=== PATIENT | female | born 1955 | race Caucasian/White ===

== ENCOUNTER → 2019-05-23 13:44 | Outpatient (BNVA) | payer OTHER, MEDICAID, SELFPAY | PROVIDERS: PCP Emergency Medicine; Visit Provider Family Medicine | DX: I11.0 Hypertensive heart disease with heart failure (principal); I50.9 Heart failure, unspecified; R25.2 Cramp and spasm; B86 Scabies; R60.0 Localized edema | CPT/HCPCS: 80048; 83735 ==

== ENCOUNTER 2019-06-04 23:20 | Emergency (ER) | payer MEDICARE, MEDICAID, SELFPAY ==
[2019-06-04 23:22] VITALS: BP 132/67; PULSE 90; RESP 18; TEMP 37.1; O2SAT 95; BMI 42.5
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
--- NOTE | 2019-06-05 00:16 | XR_ITS ---
WS: [id number] TIBIA-FIBULA LEFT TECHNIQUE: 2 views of the left tibia-fibula CLINICAL INFORMATION: injury and pain to left lower leg COMPARISON: None. FINDINGS: Normal tibia and fibula. Normal medial and lateral malleolus. Normal talar dome. Mild soft tissue ericka ma left leg. No acute fractures. IMPRESSION: Normal tibia and fibula
[2019-06-05] MEDS: ibuprofen 600 mg Tablet PO (00:23)
[2019-06-05 01:32] VITALS: BP 149/96; PULSE 86; RESP 16; O2SAT 95
== END 2019-06-05 01:32 | disposition home or self-care (01) ==
PROVIDERS: Emergency Provider Physician Assistant; PCP Emergency Medicine
DX: S80.12XA Contusion of left lower leg, initial encounter (principal); I11.0 Hypertensive heart disease with heart failure; J44.9 Chronic obstructive pulmonary disease, unspecified; E11.9 Type 2 diabetes mellitus without complications; E66.9 Obesity, unspecified; E78.5 Hyperlipidemia, unspecified; Z87.891 Personal history of nicotine dependence; I25.10 Atherosclerotic heart disease of native coronary artery without angina pectoris; V00.838A Other accident with motorized mobility scooter, initial encounter
CPT/HCPCS: 73590; 99281; 99283

== ENCOUNTER 2019-09-06 13:11 | Outpatient (CLI) | payer MEDICARE, MEDICAID, SELFPAY | END 2019-09-06 13:12 | disposition home or self-care (01) | LOC: WOUND 13:12 | PROVIDERS: PCP Emergency Medicine; Visit Provider Nurse Practitioner Family | DX: E11.622 Type 2 diabetes mellitus with other skin ulcer (principal); L97.822 Non-pressure chronic ulcer of other part of left lower leg with fat layer exposed | CPT/HCPCS: 11042; 87070; 87077; 87176; 87186; 87205 ==

== ENCOUNTER 2019-09-13 13:03 | Outpatient (CLI) | payer MEDICARE, MEDICAID, SELFPAY | END 2019-09-13 13:04 | disposition home or self-care (01) | LOC: WOUND 13:09 | PROVIDERS: PCP Emergency Medicine; Visit Provider Nurse Practitioner Family | DX: E11.622 Type 2 diabetes mellitus with other skin ulcer (principal); L97.822 Non-pressure chronic ulcer of other part of left lower leg with fat layer exposed | CPT/HCPCS: 11042 ==

== ENCOUNTER 2019-09-17 10:17 | Outpatient (CLI) | payer MEDICARE, MEDICAID, SELFPAY ==
--- NOTE | 2019-09-17 10:33 | USCV_ITS ---
Lin Henao Age: 64 Gender: F : 1955 Exam Date: 09/17/2019 10:35 Ordering Phys: Nelida Resendez Technologist: James John Exam Location: [facility] – [place] Indication: HISTORY: NON HEALING ULCER PROCEDURES: Bilateral duplex Venous Insufficiency study of the Deep and Superficial systems was carried out according to normal protocol with the patient in supine positon for deep system and dependent position for the superficial system. FINDINGS: There is no evidence of bilateral deep vein thrombosis. No evidence of superficial thrombosis in the bilateral saphenous system. No evidence of reflux was noted in the bilateral deep venous system. No venous reflux noted in the bilateral greater saphenous vein. No venous reflux noted in the bilateral small saphenous vein. Echo lucent areas in the subcutaneous tissue on the right side CONCLUSIONS No evidence of DVT in the above-mentioned identifiable veins. No significant venous reflux in either in the deep or superficial veins bilaterally Features of fluid retention/edema in the right lower extremity Dr Herber Benoit MD [facility] (Electronically Signed) Final Date: 17 Sep 2019 19:41 S
== END 2019-09-17 10:18 | disposition home or self-care (01) ==
LOC: RAD 10:21
PROVIDERS: PCP Emergency Medicine; Visit Provider Nurse Practitioner Family
DX: L98.499 Non-pressure chronic ulcer of skin of other sites with unspecified severity (principal); M79.605 Pain in left leg; M79.604 Pain in right leg
CPT/HCPCS: 93970

== ENCOUNTER 2019-09-18 08:53 | Outpatient (CLI) | payer MEDICARE, MEDICAID, SELFPAY ==
--- NOTE | 2019-09-18 09:01 | USCV_ITS ---
Lin Henao Age: 64 Gender: F : 1955 Exam Date: 09/18/2019 09:15 Ordering Phys: Nelida Resendez Technologist: Michel Trevino Exam Location: [facility] [place] Indication: NON HEALING ULCER RIGHT LEFT Brachial 152.00 mmHg Brachial 122.00 mmHg Pressure (mmHg) Waveform Pressure (mmHg) Waveform 144.00 Above Knee 127.00 125.00 Below Knee 130.00 114.00 TELETYPIST 120.00 DPA 0.79 Ankle/Brachial Index 104.00 Pre-Exercise Toe Pressure 56.00 Pre-Exercise Toe/Brachial Index 0.37 0.68 FINDINGS Moderately diminished resting WHIT with a mildly diminished TBI on the right side Markedly diminished resting TBI on the left side PVR waveforms showing loss of dicrotic notch WHIT on the left side was not performed CONCLUSIONS Abnormal WHIT and TBI on the right side, suggestive of mild to moderate peripheral arterial disease Abnormal TBI on the left side, suggestive of moderate to severe peripheral arterial disease No similar previous studies are available for comparison Dr Herber Benoit MD [facility] (Electronically Signed) Final Date: 18 Sep 2019 19:41 S
== END 2019-09-18 08:54 | disposition home or self-care (01) ==
LOC: RAD 08:59
PROVIDERS: PCP Emergency Medicine; Visit Provider Nurse Practitioner Family
DX: L98.499 Non-pressure chronic ulcer of skin of other sites with unspecified severity (principal); M79.605 Pain in left leg; M79.604 Pain in right leg
CPT/HCPCS: 93923

== ENCOUNTER 2019-09-20 09:05 | Outpatient (CLI) | payer MEDICARE, MEDICAID, SELFPAY | END 2019-09-20 09:06 | disposition home or self-care (01) | LOC: WOUND 09:07 | PROVIDERS: PCP Emergency Medicine; Visit Provider Nurse Practitioner Family | DX: E11.622 Type 2 diabetes mellitus with other skin ulcer (principal); L97.822 Non-pressure chronic ulcer of other part of left lower leg with fat layer exposed | CPT/HCPCS: 11042 ==

== ENCOUNTER 2019-09-27 13:54 | Outpatient (CLI) | payer MEDICARE, MEDICAID, SELFPAY | END 2019-09-27 13:55 | disposition home or self-care (01) | LOC: WOUND 13:55 | PROVIDERS: PCP Emergency Medicine; Visit Provider Nurse Practitioner Family | DX: E11.622 Type 2 diabetes mellitus with other skin ulcer (principal); L97.822 Non-pressure chronic ulcer of other part of left lower leg with fat layer exposed | CPT/HCPCS: 11042 ==

== ENCOUNTER → 2019-10-03 08:45 | Outpatient (BNVA) | payer MEDICARE, MEDICAID, SELFPAY | PROVIDERS: PCP Family Medicine; Visit Provider Nurse Practitioner Family | DX: N32.81 Overactive bladder (principal); N39.46 Mixed incontinence; K59.09 Other constipation | CPT/HCPCS: 81001 ==

== ENCOUNTER 2019-10-08 13:48 | Outpatient (CLI) | payer MEDICARE, MEDICAID, SELFPAY | END 2019-10-08 13:49 | disposition home or self-care (01) | LOC: WOUND 13:49 | PROVIDERS: PCP Family Medicine; Visit Provider Nurse Practitioner Family | DX: E11.622 Type 2 diabetes mellitus with other skin ulcer (principal); L97.822 Non-pressure chronic ulcer of other part of left lower leg with fat layer exposed | CPT/HCPCS: 11042; 87070; 87077; 87176; 87186; 87205 ==

== ENCOUNTER 2019-10-18 10:13 | Outpatient (CLI) | payer MEDICARE, MEDICAID, SELFPAY | END 2019-10-18 10:14 | disposition home or self-care (01) | LOC: WOUND 10:16 | PROVIDERS: PCP Family Medicine; Visit Provider Nurse Practitioner Family | DX: E11.622 Type 2 diabetes mellitus with other skin ulcer (principal); L97.822 Non-pressure chronic ulcer of other part of left lower leg with fat layer exposed | CPT/HCPCS: 11042 ==

== ENCOUNTER 2019-10-25 13:07 | Outpatient (CLI) | payer MEDICARE, MEDICAID, SELFPAY | END 2019-10-25 13:08 | disposition home or self-care (01) | LOC: WOUND 13:09 | PROVIDERS: PCP Family Medicine; Visit Provider Nurse Practitioner Family | DX: E11.622 Type 2 diabetes mellitus with other skin ulcer (principal); L97.822 Non-pressure chronic ulcer of other part of left lower leg with fat layer exposed | CPT/HCPCS: 11042 ==

== ENCOUNTER 2019-10-26 09:44 | Outpatient (CLI) | payer MEDICARE, MEDICAID, SELFPAY ==
--- NOTE | 2019-10-26 10:30 | CT_ITS ---
WS: [id number] CTA ABDOMINAL AORTA WITH RUNOFF TECHNIQUE: Contrast enhanced CTA of the abdominal aorta with bilateral lower extremity runoff. Multip lanar reformatted images were obtained. MIP reformats were also reviewed. CLINICAL INFORMATION: Lifestyle limiting claudication COMPARISON: None. DLP: 1460.[address] scans at [facility] use at least one of these dose optimization techniques: automat ed exposure control; mA and/or kV adjustment per patient size (includes targeted exams where dose is matched to clinical indication); or iterative reconstruction. FINDINGS:Diffuse fatty infiltration of the liver. Hepatomegaly. Normal spleen. Normal GE junction. Sherice ng bases are well aerated. Mild fatty atrophy of the pancreas. Adrenal glands are normal. Normal candis l parenchymal enhancement. No hydronephrosis. Right lower pole renal cyst measuring 1.8 cm. Normal sigmoid colon. Tiny fat-containing umbilical hernia. No hernia bowel. Grade 1 anterolisthesis L5 on S1. Chronic spondylolysis. Hypertrophic changes lower thoracic spine. RIGHT: Right common iliac artery is patent. Right external and internal iliac arteries are patent. Ri ght common femoral artery is patent. Superficial femoral artery is patent. Right deep femoral artery is patent. Normal popliteal artery. Normal 3 vessel runoff to the ankle. LEFT: Left common iliac artery is patent. Left external and internal iliac arteries are patent. Left common femoral artery is patent. Normal superficial femoral artery and deep femoral arteries. Poplite al artery is patent. Normal 3 vessel runoff to the ankle. CT/CT angio abd aorta runof [id number] IMPRESSION: 1. Normal bilateral three-vessel runoff to both ankles. No flow-limiting lower extremity arterial stenosis. 2. Normal caliber abdominal aorta. Mild calcification at the bifurcation. No a neurysm. 3. Celiac and SMA are patent. Proximal renal arteries are patent. ALBIN is cristian hartley
[2019-10-26 10:46] LABS: Blood Urea Nitrogen 8 mg/dL (8-23)
[2019-10-26] MEDS: iohexol 350 mg/mL 100 mL Btl IV (11:16)
== END 2019-10-26 09:45 | disposition home or self-care (01) ==
LOC: RADWPI 09:52
PROVIDERS: PCP Family Medicine; Visit Provider Internal Medicine Cardiovascular Disease
DX: I73.9 Peripheral vascular disease, unspecified (principal); L97.921 Non-pressure chronic ulcer of unspecified part of left lower leg limited to breakdown of skin
CPT/HCPCS: 75635; 82565; 84520; Q9967

== ENCOUNTER 2019-11-01 13:07 | Outpatient (CLI) | payer MEDICARE, MEDICAID, SELFPAY | END 2019-11-01 13:08 | disposition home or self-care (01) | LOC: WOUND 13:08 | PROVIDERS: Family Provider Family Medicine; PCP Family Medicine; Visit Provider Nurse Practitioner Family | DX: E11.622 Type 2 diabetes mellitus with other skin ulcer (principal); L97.822 Non-pressure chronic ulcer of other part of left lower leg with fat layer exposed | CPT/HCPCS: 11042; G0463 ==

== ENCOUNTER 2019-11-08 08:41 | Outpatient (CLI) | payer MEDICARE, MEDICAID, SELFPAY | END 2019-11-08 08:42 | disposition home or self-care (01) | LOC: WOUND 08:45 | PROVIDERS: PCP Family Medicine; Visit Provider Surgery | DX: Z51.89 Encounter for other specified aftercare (principal) | CPT/HCPCS: G0463 ==

== ENCOUNTER → 2019-11-14 14:30 | Outpatient (BNVA) | payer MEDICARE, MEDICAID, SELFPAY | PROVIDERS: PCP Family Medicine; Visit Provider Family Medicine | DX: I10 Essential (primary) hypertension (principal); E11.69 Type 2 diabetes mellitus with other specified complication; E66.9 Obesity, unspecified; L97.921 Non-pressure chronic ulcer of unspecified part of left lower leg limited to breakdown of skin; F33.1 Major depressive disorder, recurrent, moderate; Z74.09 Other reduced mobility; Z99.3 Dependence on wheelchair | CPT/HCPCS: 80053; 80061; 83036 ==

== ENCOUNTER 2019-11-19 13:02 | Outpatient (CLI) | payer MEDICARE, MEDICAID, SELFPAY | END 2019-11-19 13:03 | disposition home or self-care (01) | LOC: WOUND 13:04 | PROVIDERS: PCP Family Medicine; Visit Provider Emergency Medicine | DX: E11.622 Type 2 diabetes mellitus with other skin ulcer (principal); L97.822 Non-pressure chronic ulcer of other part of left lower leg with fat layer exposed | CPT/HCPCS: 11042 ==

== ENCOUNTER 2019-11-22 09:29 | Outpatient (CLI) | payer MEDICARE, MEDICAID, SELFPAY | END 2019-11-22 09:30 | disposition home or self-care (01) | LOC: WOUND 09:32 | PROVIDERS: PCP Family Medicine; Visit Provider Nurse Practitioner Family | DX: E11.622 Type 2 diabetes mellitus with other skin ulcer (principal); L97.822 Non-pressure chronic ulcer of other part of left lower leg with fat layer exposed | CPT/HCPCS: 29581 ==

== ENCOUNTER 2019-11-29 08:42 | Outpatient (RCR) | payer MEDICARE, MEDICAID, SELFPAY ==
[2019-11-23 14:15] VITALS: BP 130/79; BMI 45.8
== END 2019-11-30 23:59 | disposition home or self-care (01) ==
LOC: WOUND 08:42
PROVIDERS: PCP Family Medicine; Visit Provider Emergency Medicine
DX: E11.622 Type 2 diabetes mellitus with other skin ulcer (principal); L97.822 Non-pressure chronic ulcer of other part of left lower leg with fat layer exposed
CPT/HCPCS: 11042

== ENCOUNTER 2019-12-06 08:41 | Outpatient (CLI) | payer MEDICARE, MEDICAID, SELFPAY ==
[2019-11-23 14:15] VITALS: BP 130/79; BMI 45.8
== END 2019-12-06 08:42 | disposition home or self-care (01) ==
LOC: HBO 08:43
PROVIDERS: PCP Family Medicine; Visit Provider Thoracic Surgery (Cardiothoracic Vascular Surgery)
DX: E11.622 Type 2 diabetes mellitus with other skin ulcer (principal); L97.822 Non-pressure chronic ulcer of other part of left lower leg with fat layer exposed
CPT/HCPCS: 29581; 99212

== ENCOUNTER 2019-12-07 09:24 | Outpatient (RCR) | payer MEDICARE, MEDICAID, SELFPAY ==
[2019-11-23 14:15] VITALS: BP 130/79; BMI 45.8
== END 2019-12-31 23:59 | disposition home or self-care (01) ==
LOC: WOUND 09:24
PROVIDERS: PCP Family Medicine; Visit Provider Emergency Medicine
DX: L97.921 Non-pressure chronic ulcer of unspecified part of left lower leg limited to breakdown of skin (principal); E11.622 Type 2 diabetes mellitus with other skin ulcer; L97.822 Non-pressure chronic ulcer of other part of left lower leg with fat layer exposed
CPT/HCPCS: 29581; 99212

== ENCOUNTER → 2019-12-11 12:50 | Outpatient (BNVA) | payer MEDICARE, MEDICAID, SELFPAY ==
[2019-11-23 14:15] VITALS: BP 130/79; BMI 45.8
== END ==
PROVIDERS: PCP Family Medicine; Visit Provider Nurse Practitioner Family
DX: N39.46 Mixed incontinence (principal)
CPT/HCPCS: 81001

== ENCOUNTER 2019-12-13 08:54 | Outpatient (CLI) | payer MEDICARE, MEDICAID, SELFPAY ==
[2019-11-23 14:15] VITALS: BP 130/79; BMI 45.8
== END 2019-12-13 08:55 | disposition home or self-care (01) ==
LOC: WOUND 08:55
PROVIDERS: PCP Family Medicine; Visit Provider Nurse Practitioner Family
DX: E11.622 Type 2 diabetes mellitus with other skin ulcer (principal); L97.822 Non-pressure chronic ulcer of other part of left lower leg with fat layer exposed
CPT/HCPCS: 11042; 97597

== ENCOUNTER 2019-12-20 08:12 | Outpatient (RCR) | payer MEDICARE, MEDICAID, SELFPAY ==
[2019-11-23 14:15] VITALS: BP 130/79; BMI 45.8
== END 2019-12-31 23:59 | disposition home or self-care (01) ==
LOC: WOUND 08:12
PROVIDERS: PCP Family Medicine; Visit Provider Emergency Medicine
DX: E11.622 Type 2 diabetes mellitus with other skin ulcer (principal); L97.822 Non-pressure chronic ulcer of other part of left lower leg with fat layer exposed
CPT/HCPCS: 15271; Q4196

== ENCOUNTER 2019-12-27 08:48 | Outpatient (CLI) | payer MEDICARE, MEDICAID, SELFPAY ==
[2019-11-23 14:15] VITALS: BP 130/79; BMI 45.8
== END 2019-12-27 08:49 | disposition home or self-care (01) ==
LOC: WOUND 08:49
PROVIDERS: PCP Family Medicine; Visit Provider Emergency Medicine
DX: E11.622 Type 2 diabetes mellitus with other skin ulcer (principal); L97.822 Non-pressure chronic ulcer of other part of left lower leg with fat layer exposed
CPT/HCPCS: 11042

== ENCOUNTER 2020-01-03 08:57 | Outpatient (CLI) | payer MEDICARE, MEDICAID, SELFPAY ==
[2019-11-23 14:15] VITALS: BP 130/79; BMI 45.8
== END 2020-01-03 08:58 | disposition home or self-care (01) ==
LOC: WOUND 08:58
PROVIDERS: PCP Family Medicine; Visit Provider Emergency Medicine
DX: E11.622 Type 2 diabetes mellitus with other skin ulcer (principal); L97.822 Non-pressure chronic ulcer of other part of left lower leg with fat layer exposed
CPT/HCPCS: 15271; Q4196

== ENCOUNTER 2020-01-10 09:54 | Outpatient (CLI) | payer MEDICARE, MEDICAID, SELFPAY ==
[2019-11-23 14:15] VITALS: BP 130/79; BMI 45.8
== END 2020-01-10 09:55 | disposition home or self-care (01) ==
LOC: WOUND 09:55
PROVIDERS: PCP Family Medicine; Visit Provider Emergency Medicine
DX: E11.622 Type 2 diabetes mellitus with other skin ulcer (principal); L97.822 Non-pressure chronic ulcer of other part of left lower leg with fat layer exposed
CPT/HCPCS: 11042

== ENCOUNTER 2020-01-17 08:55 | Outpatient (CLI) | payer MEDICARE, MEDICAID, SELFPAY ==
[2019-11-23 14:15] VITALS: BP 130/79; BMI 45.8
== END 2020-01-17 08:56 | disposition home or self-care (01) ==
LOC: WOUND 08:56
PROVIDERS: PCP Family Medicine; Visit Provider Emergency Medicine
DX: E11.622 Type 2 diabetes mellitus with other skin ulcer (principal); L97.822 Non-pressure chronic ulcer of other part of left lower leg with fat layer exposed
CPT/HCPCS: 11042; 87070; 87077; 87176; 87186; 87205

== ENCOUNTER 2020-01-24 10:49 | Outpatient (CLI) | payer MEDICARE, MEDICAID, SELFPAY ==
[2019-11-23 14:15] VITALS: BP 130/79; BMI 45.8
== END 2020-01-24 10:50 | disposition home or self-care (01) ==
LOC: WOUND 10:52
PROVIDERS: PCP Family Medicine; Visit Provider Nurse Practitioner Family
DX: E11.622 Type 2 diabetes mellitus with other skin ulcer (principal); L97.822 Non-pressure chronic ulcer of other part of left lower leg with fat layer exposed
CPT/HCPCS: 11042

== ENCOUNTER 2020-01-31 09:47 | Outpatient (CLI) | payer MEDICARE, MEDICAID, SELFPAY ==
[2019-11-23 14:15] VITALS: BP 130/79; BMI 45.8
== END 2020-01-31 09:48 | disposition home or self-care (01) ==
LOC: WOUND 09:48
PROVIDERS: PCP Family Medicine; Visit Provider Nurse Practitioner Family
DX: E11.621 Type 2 diabetes mellitus with foot ulcer (principal); L97.822 Non-pressure chronic ulcer of other part of left lower leg with fat layer exposed
CPT/HCPCS: 11042

== ENCOUNTER 2020-02-07 10:05 | Outpatient (CLI) | payer MEDICARE, MEDICAID, SELFPAY ==
[2019-11-23 14:15] VITALS: BP 130/79; BMI 45.8
== END 2020-02-07 10:06 | disposition home or self-care (01) ==
LOC: WOUND 10:07
PROVIDERS: PCP Family Medicine; Visit Provider Surgery
DX: E11.622 Type 2 diabetes mellitus with other skin ulcer (principal); L97.822 Non-pressure chronic ulcer of other part of left lower leg with fat layer exposed
CPT/HCPCS: 29581

== ENCOUNTER 2020-02-10 14:33 | Emergency (ER) | payer MEDICARE, MEDICAID, SELFPAY ==
[2019-11-23 14:15] VITALS: BP 130/79; BMI 45.8
[2020-02-10 14:51] VITALS: BP 138/91; PULSE 94; RESP 18; TEMP 37.1; O2SAT 95; BMI 44.6
--- NOTE | 2020-02-10 15:04 | XRR_ITS ---
PROCEDURE INFORMATION: Exam: XR Left Wrist Exam date and time: 02/10/2020 4:03 PM Age: 64 years old Clinical indication: Injury or trauma; Other: Dog leash pulled on wrist; Swelling (edema); Left; Additional info: Trauma, dog leash pulled on wrist TECHNIQUE: Imaging protocol: XR Left wrist. Views: 3 or more views. COMPARISON: No relevant prior studies available. FINDINGS: Bones/joints: Negative for acute bony abnormality Soft tissues: Normal. XR/XR wrist LT min 3V* [id number] IMPRESSION: No acute findings.
--- NOTE | 2020-02-10 16:13 | W.ED.EXTPRO ---
HPI - Extremity Problem General: Chief complaint: Extremity Injury, Upper Stated complaint: wrist pain Time Seen by Provider: 02/10/20 15:39 History of Present Illness: HPI Narrative: Left hand with bruising from getting pulled by dog leash. Complaint: extremity pain Onset (ago): day(s) Pain Consistency: intermittent Location: left Severity scale (1-10): 2 Quality: aching Radiation: none Associated symptoms: Reports no associated symptoms; Deny chest pain, fever(s) or rash Review of Systems Const: Denies: fever(s), chills or body aches Eyes: Denies: change in vision or blurry vision ENMT: Denies: throat pain or nasal congestion Card: Denies: chest pain or dyspnea on exertion Resp: Denies: dyspnea, productive cough or non-productive cough GI: Denies: abdominal pain, nausea or vomiting Musc: Reports: extremity pain (Has bruising swelling to top of the left hand patient is on blood thinners. Dog leash pulled on her wrist she does have good range of motion) Skin/Breast: Denies: rash Neuro: Denies: headache(s) Psych: Denies: anxiety or depression Jagjit/Lymph: Denies: easy bruising PFSH ED PFSH: Medical History (Updated 02/10/20 @ 16:12 by JEROME Joshi) Bipolar depression CAD (coronary artery disease) Chronic headache Chronic pain syndrome Constipation, chronic COPD (chronic obstructive pulmonary disease) Diabetes mellitus type 2 in obese GERD (gastroesophageal reflux disease) Hyperlipemia Hypertension, benign Insomnia Mixed stress and urge urinary incontinence Overactive bladder RLS (restless legs syndrome) Surgical History (Updated 02/05/20 @ 12:28 by Kristine Rodriguez MD) H/O thyroidectomy H/O: hysterectomy Hx of cholecystectomy S/P appendectomy Family History Mother , at age 75 Hypertension Father , at age 87 Hypertension Denies family history of Lung disease Stroke Social History Smoking and tobacco status: former smoker Quit status (tobacco): has quit using tobacco Alcohol intake: never Adopted: No Caregiver/support person: No Lives independently: Yes Marital status: / Current occupational status: disabled History of recent travel: No Current gender identity: Female Female Reproductive History: Spontaneous abortions: No Physical Exam Const: COMMON NORMALS: no acute distress, average body habitus and patient oriented x3 HENMT: COMMON NORMALS: normocephalic HEAD & SCALP: normal to inspection and normocephalic FACE & SINUS: normal facial exam Eye: COMMON NORMALS: conjunctivae normal GENERAL EYE: appearance normal, both eyes and all related structures CONJUNCTIVA: Yes conjunctivae normal Neck/C-Spine: COMMON NORMALS: no JVD Chest: COMMONS NORMALS: normal inspection of the chest Resp: COMMON NORMALS: normal respiratory effort Cardio: COMMON NORMALS: no JVD GI: COMMON NORMALS: Normal to inspection, nondistended, normoactive bowel sounds present Extremity: COMMON NORMALS: normal to inspection and full ROM Neuro: COMMON NORMALS: patient oriented x3 Skin: OTHER: Bruising to dorsal surface of left hand from knuckles down to right below the wrist area. She has good range of motion good distal neurovascular status skin is what hurts when touched. Course Vital Signs: Vital signs: Vital Signs Temperature 98.8 F 02/10/20 14:51 Pulse Rate 94 02/10/20 14:51 Respiratory Rate 18 02/10/20 14:51 Blood Pressure 138/91 02/10/20 14:51 Pulse Oximetry 95 02/10/20 14:51 Discharge Plan Discharge Patient Disposition: Home Clinical Impression: Left wrist sprain Qualifiers: Encounter type: initial encounter Qualified Code(s): S63.502A - Unspecified sprain of left wrist, initial encounter Condition: Stable Prescriptions: No Action oxybutynin chloride 15 mg tablet extended release 24hr 15 mg PO DAILY RF: 0 topiramate [Topamax] 100 mg tablet 100 mg PO TID RF: 0 potassium chloride 20 mEq tablet extended release 20 meq PO BID RF: 0 clopidogrel [Plavix] 75 mg tablet 75 mg PO ONCE RF: 0 celecoxib 200 mg capsule 200 mg PO DAILY RF: 0 gemfibrozil 600 mg tablet 600 mg PO DAILY RF: 0 furosemide [Lasix] 40 mg tablet 40 mg PO BID RF: 0 docusate sodium [Colace] 100 mg capsule 100 mg PO BID RF: 0 losartan 100 mg tablet 100 mg PO ONCE RF: 0 ibuprofen 800 mg tablet 800 mg PO Q6H PRNRF: 0 albuterol sulfate [Ventolin HFA] 90 mcg/actuation HFA aerosol inhaler 2 puff INHALATION Q6H PRNRF: 0 nitroglycerin 0.4 mg tablet, sublingual 0.4 mg SUBLINGUAL Q5M PRNRF: 0 amitriptyline 100 mg tablet 100 mg PO DAILY Qty: 30 RF: 3 bupropion HCl [Wellbutrin XL] 300 mg tablet extended release 24 hr 300 mg PO DAILY Qty: 30 RF: 3 buspirone 10 mg tablet 15 mg PO BID Qty: 90 RF: 3 duloxetine 60 mg capsule,delayed release(DR/EC) 60 mg PO DAILY Qty: 30 RF: 3 ropinirole 1 mg tablet 1.5 mg PO .bedtime Qty: 45 RF: 3 hydroxyzine pamoate 25 mg capsule 25 mg PO Q6H PRN (Reason: itching or pain) Qty: 120 RF: 3 ramelteon 8 mg tablet 8 mg PO .at bedtime Qty: 30 RF: 2 famotidine 20 mg tablet 20 mg PO BID RF: 0 guaifenesin 1,200 mg tablet extended release 12hr 1,200 mg PO Q12H 14 Days Qty: 28 RF: 0 loratadine 10 mg tablet 10 mg PO .at bedtime PRN (Reason: allergy symptoms) 14 Days Qty: 14 RF: 0 metformin 500 mg tablet 500 mg PO BID 30 Days Qty: 60 RF: 2 miscellaneous medical supply Misc See Rx Instructions miscellaneous .COMPLEX Qty: 1 RF: 0 cyclobenzaprine 5 mg tablet See Rx Instructions PO TID 30 Days Qty: 120 RF: 2 spironolactone 25 mg tablet 25 mg PO DAILY Qty: 30 RF: 2 aspirin [Adult Aspirin Regimen] 81 mg tablet,delayed release (DR/EC) 81 mg PO DAILY 90 Days Qty: 90 RF: 3 Discharge Orders: Discharge Order (Routine); Ordered 02/10/20 Ordered By: Paulie Carlisle Referrals: Kristine Rodriguez MD [Primary Care Provider] - Discharge Diet: Usual diet Discharge Activity: Increase activity as tolerated Patient Instructions: Contusion in Adults (ED), Wrist Sprain (ED) Activity Restrictions/Additional Instructions: Wear Yasir wrap take Tylenol for discomfort use moist heat for 20 minutes every couple hours to help absorb blood. 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
== END 2020-02-10 16:34 | disposition home or self-care (01) ==
PROVIDERS: Emergency Provider Nurse Practitioner Family; PCP Family Medicine
DX: S63.502A Unspecified sprain of left wrist, initial encounter (principal); Z79.02 Long term (current) use of antithrombotics/antiplatelets; Z79.82 Long term (current) use of aspirin; I25.10 Atherosclerotic heart disease of native coronary artery without angina pectoris; J44.9 Chronic obstructive pulmonary disease, unspecified; E11.9 Type 2 diabetes mellitus without complications; E78.5 Hyperlipidemia, unspecified; I10 Essential (primary) hypertension; Z87.891 Personal history of nicotine dependence; X50.9XXA Other and unspecified overexertion or strenuous movements or postures, initial encounter
CPT/HCPCS: 12345; 73110; 99281; 99283

== ENCOUNTER 2020-02-14 09:37 | Outpatient (CLI) | payer MEDICARE, MEDICAID, SELFPAY ==
[2019-11-23 14:15] VITALS: BP 130/79; BMI 45.8
== END 2020-02-14 09:38 | disposition home or self-care (01) ==
LOC: WOUND 09:39
PROVIDERS: PCP Family Medicine; Visit Provider Nurse Practitioner Family
DX: E11.622 Type 2 diabetes mellitus with other skin ulcer (principal); L97.822 Non-pressure chronic ulcer of other part of left lower leg with fat layer exposed
CPT/HCPCS: 97597

== ENCOUNTER 2020-02-18 13:37 | Outpatient (CLI) | payer MEDICARE, MEDICAID, SELFPAY ==
[2019-11-23 14:15] VITALS: BP 130/79; BMI 45.8
== END 2020-02-18 13:38 | disposition home or self-care (01) ==
LOC: WOUND 13:39
PROVIDERS: PCP Family Medicine; Visit Provider Thoracic Surgery (Cardiothoracic Vascular Surgery)
DX: E11.622 Type 2 diabetes mellitus with other skin ulcer (principal); L97.822 Non-pressure chronic ulcer of other part of left lower leg with fat layer exposed
CPT/HCPCS: 29581

== ENCOUNTER 2020-02-21 10:21 | Outpatient (CLI) | payer MEDICARE, MEDICAID, SELFPAY ==
[2019-11-23 14:15] VITALS: BP 130/79; BMI 45.8
== END 2020-02-21 10:22 | disposition home or self-care (01) ==
LOC: WOUND 10:22
PROVIDERS: PCP Family Medicine; Visit Provider Nurse Practitioner Family
DX: E11.622 Type 2 diabetes mellitus with other skin ulcer (principal); L97.822 Non-pressure chronic ulcer of other part of left lower leg with fat layer exposed
CPT/HCPCS: 11042

== ENCOUNTER 2020-02-25 10:49 | Outpatient (CLI) | payer MEDICARE, MEDICAID, SELFPAY ==
[2019-11-23 14:15] VITALS: BP 130/79; BMI 45.8
== END 2020-02-25 10:50 | disposition home or self-care (01) ==
LOC: WOUND 10:50
PROVIDERS: PCP Family Medicine; Visit Provider Nurse Practitioner Family
DX: E11.622 Type 2 diabetes mellitus with other skin ulcer (principal); L97.822 Non-pressure chronic ulcer of other part of left lower leg with fat layer exposed
CPT/HCPCS: 29581

== ENCOUNTER 2020-02-28 13:10 | Outpatient (CLI) | payer MEDICARE, MEDICAID, SELFPAY ==
[2019-11-23 14:15] VITALS: BP 130/79; BMI 45.8
== END 2020-02-28 13:11 | disposition home or self-care (01) ==
PROVIDERS: PCP Family Medicine; Visit Provider Nurse Practitioner Family
DX: E11.622 Type 2 diabetes mellitus with other skin ulcer (principal); L97.822 Non-pressure chronic ulcer of other part of left lower leg with fat layer exposed
CPT/HCPCS: 11042

== ENCOUNTER 2020-03-03 08:10 | Outpatient (CLI) | payer MEDICARE, MEDICAID, SELFPAY ==
[2019-11-23 14:15] VITALS: BP 130/79; BMI 45.8
== END 2020-03-03 08:11 | disposition home or self-care (01) ==
LOC: WOUND 08:12
PROVIDERS: PCP Family Medicine; Visit Provider Nurse Practitioner Family
DX: E11.622 Type 2 diabetes mellitus with other skin ulcer (principal); L97.822 Non-pressure chronic ulcer of other part of left lower leg with fat layer exposed
CPT/HCPCS: 29581

== ENCOUNTER 2020-03-06 10:00 | Outpatient (CLI) | payer MEDICARE, MEDICAID, SELFPAY ==
[2019-11-23 14:15] VITALS: BP 130/79; BMI 45.8
== END 2020-03-06 10:01 | disposition home or self-care (01) ==
LOC: WOUND 10:01
PROVIDERS: PCP Family Medicine; Visit Provider Nurse Practitioner Family
DX: E11.622 Type 2 diabetes mellitus with other skin ulcer (principal); L97.822 Non-pressure chronic ulcer of other part of left lower leg with fat layer exposed
CPT/HCPCS: 29581

== ENCOUNTER 2020-03-10 09:57 | Outpatient (RCR) | payer MEDICARE, MEDICAID, SELFPAY ==
[2019-11-23 14:15] VITALS: BP 130/79; BMI 45.8
== END 2020-03-31 23:59 | disposition home or self-care (01) ==
LOC: WOUND 09:57
PROVIDERS: PCP Family Medicine; Visit Provider Nurse Practitioner Family
DX: E11.622 Type 2 diabetes mellitus with other skin ulcer (principal); L97.822 Non-pressure chronic ulcer of other part of left lower leg with fat layer exposed
CPT/HCPCS: 29581

== ENCOUNTER 2020-03-13 10:51 | Outpatient (CLI) | payer MEDICARE, MEDICAID, SELFPAY ==
[2020-03-12 07:45] VITALS: BP 130/79; BMI 45.8
== END 2020-03-13 10:52 | disposition home or self-care (01) ==
LOC: WOUND 10:51
PROVIDERS: PCP Family Medicine; Visit Provider Nurse Practitioner Family
DX: E11.622 Type 2 diabetes mellitus with other skin ulcer (principal); L97.822 Non-pressure chronic ulcer of other part of left lower leg with fat layer exposed
CPT/HCPCS: G0463

== ENCOUNTER 2020-03-17 13:07 | Outpatient (RCR) | payer MEDICARE, MEDICAID, SELFPAY ==
[2020-03-12 07:45] VITALS: BP 130/79; BMI 45.8
== END 2020-03-31 23:59 | disposition home or self-care (01) ==
LOC: WOUND 13:07
PROVIDERS: PCP Family Medicine; Visit Provider Nurse Practitioner Family
DX: E11.622 Type 2 diabetes mellitus with other skin ulcer (principal); L97.522 Non-pressure chronic ulcer of other part of left foot with fat layer exposed
CPT/HCPCS: 11042

== ENCOUNTER 2020-03-20 09:26 | Outpatient (CLI) | payer MEDICARE, MEDICAID, SELFPAY ==
[2020-03-12 07:45] VITALS: BP 130/79; BMI 45.8
== END 2020-03-20 09:27 | disposition home or self-care (01) ==
LOC: WOUND 09:33
PROVIDERS: PCP Family Medicine; Visit Provider Nurse Practitioner Family
DX: E11.622 Type 2 diabetes mellitus with other skin ulcer (principal); L97.822 Non-pressure chronic ulcer of other part of left lower leg with fat layer exposed
CPT/HCPCS: 29581

== ENCOUNTER 2020-03-24 11:16 | Outpatient (CLI) | payer MEDICARE, MEDICAID, SELFPAY ==
[2020-03-12 07:45] VITALS: BP 130/79; BMI 45.8
== END 2020-03-24 11:17 | disposition home or self-care (01) ==
LOC: WOUND 11:20
PROVIDERS: PCP Family Medicine; Visit Provider Nurse Practitioner Family
DX: E11.622 Type 2 diabetes mellitus with other skin ulcer (principal); L97.822 Non-pressure chronic ulcer of other part of left lower leg with fat layer exposed; E11.65 Type 2 diabetes mellitus with hyperglycemia
CPT/HCPCS: 11042; 83036

== ENCOUNTER 2020-03-31 10:25 | Outpatient (CLI) | payer MEDICARE, MEDICAID, SELFPAY ==
[2020-03-12 07:45] VITALS: BP 130/79; BMI 45.8
== END 2020-03-31 10:26 | disposition home or self-care (01) ==
LOC: WOUND 10:29
PROVIDERS: PCP Family Medicine; Visit Provider Nurse Practitioner Family
DX: E11.622 Type 2 diabetes mellitus with other skin ulcer (principal); L97.822 Non-pressure chronic ulcer of other part of left lower leg with fat layer exposed
CPT/HCPCS: 11042

== ENCOUNTER 2020-04-03 10:33 | Outpatient (CLI) | payer MEDICARE, MEDICAID, SELFPAY ==
[2020-03-12 07:45] VITALS: BP 130/79; BMI 45.8
== END 2020-04-03 10:34 | disposition home or self-care (01) ==
LOC: WOUND 10:35
PROVIDERS: PCP Family Medicine; Visit Provider Nurse Practitioner Family
DX: E11.622 Type 2 diabetes mellitus with other skin ulcer (principal); L97.822 Non-pressure chronic ulcer of other part of left lower leg with fat layer exposed
CPT/HCPCS: 29581

== ENCOUNTER 2020-04-07 10:42 | Outpatient (CLI) | payer MEDICARE, MEDICAID, SELFPAY ==
[2020-03-12 07:45] VITALS: BP 130/79; BMI 45.8
== END 2020-04-07 10:43 | disposition home or self-care (01) ==
LOC: WOUND 10:43
PROVIDERS: PCP Family Medicine; Visit Provider Nurse Practitioner Family
DX: E11.622 Type 2 diabetes mellitus with other skin ulcer (principal); L97.822 Non-pressure chronic ulcer of other part of left lower leg with fat layer exposed; E11.69 Type 2 diabetes mellitus with other specified complication; E66.9 Obesity, unspecified; I10 Essential (primary) hypertension
CPT/HCPCS: 11042; 80053; 83735

== ENCOUNTER 2020-04-10 09:16 | Outpatient (RCR) | payer MEDICARE, MEDICAID, SELFPAY ==
[2020-03-12 07:45] VITALS: BP 130/79; BMI 45.8
== END 2020-05-01 23:59 | disposition home or self-care (01) ==
LOC: WOUND 09:16
PROVIDERS: PCP Family Medicine; Visit Provider Nurse Practitioner Family
DX: E11.622 Type 2 diabetes mellitus with other skin ulcer (principal); L97.822 Non-pressure chronic ulcer of other part of left lower leg with fat layer exposed
CPT/HCPCS: 29581

== ENCOUNTER 2020-04-14 08:22 | Outpatient (CLI) | payer MEDICARE, MEDICAID, SELFPAY ==
[2020-03-12 07:45] VITALS: BP 130/79; BMI 45.8
== END 2020-04-14 08:23 | disposition home or self-care (01) ==
LOC: WOUND 08:23
PROVIDERS: PCP Family Medicine; Visit Provider Nurse Practitioner Family
DX: Z09 Encounter for follow-up examination after completed treatment for conditions other than malignant neoplasm (principal)
CPT/HCPCS: 99212; A6545

== ENCOUNTER → 2020-06-25 17:03 | Outpatient (BNVA) | payer MEDICARE, MEDICAID, SELFPAY ==
[2020-03-12 07:45] VITALS: BP 130/79; BMI 45.8
== END ==
PROVIDERS: PCP Family Medicine; Visit Provider Family Medicine
DX: I10 Essential (primary) hypertension (principal); G89.4 Chronic pain syndrome; E11.69 Type 2 diabetes mellitus with other specified complication; E66.9 Obesity, unspecified; M19.90 Unspecified osteoarthritis, unspecified site
CPT/HCPCS: 80053; 80061; 83036

== ENCOUNTER → 2020-08-25 15:49 | Outpatient (BNVA) | payer MEDICARE, MEDICAID, SELFPAY ==
[2020-03-12 07:45] VITALS: BP 130/79; BMI 45.8
== END ==
PROVIDERS: PCP Family Medicine; Visit Provider Family Medicine
DX: E11.69 Type 2 diabetes mellitus with other specified complication (principal); E66.9 Obesity, unspecified; M19.90 Unspecified osteoarthritis, unspecified site; I10 Essential (primary) hypertension; E78.5 Hyperlipidemia, unspecified; J44.9 Chronic obstructive pulmonary disease, unspecified; G89.4 Chronic pain syndrome; I73.9 Peripheral vascular disease, unspecified; I25.10 Atherosclerotic heart disease of native coronary artery without angina pectoris; M79.7 Fibromyalgia; K59.09 Other constipation; K21.9 Gastro-esophageal reflux disease without esophagitis; T78.40XA Allergy, unspecified, initial encounter; N39.46 Mixed incontinence; J41.0 Simple chronic bronchitis; E78.2 Mixed hyperlipidemia; F33.1 Major depressive disorder, recurrent, moderate; Z90.710 Acquired absence of both cervix and uterus
CPT/HCPCS: 80053; 80061; 83036; 83735

== ENCOUNTER 2020-09-08 09:58 | Observation (INO) | payer MEDICARE, MEDICAID, SELFPAY ==
[2020-09-02 16:11] VITALS: BP 134/75; BMI 41.9
[2020-09-08] VITALS (13 sets, daily range): BP systolic 80–146; BP diastolic 53–96; PULSE 71–110; RESP 14–22; TEMP 36.6–37.1; O2SAT 96–98; BMI 42.0
--- NOTE | 2020-09-08 10:06 | XRR_ITS ---
PROCEDURE INFORMATION: Exam: XR Chest Exam date and time: 09/08/2020 10:21 AM Age: 65 years old Clinical indication: Chest pain; Type not specified; Additional info: Chest pain, palpitations TECHNIQUE: Imaging protocol: XR of the chest. Views: 1 view. COMPARISON: No relevant prior studies available. FINDINGS: Lungs: Unremarkable. No consolidation. Pleural spaces: Unremarkable. No pleural effusion. No pneumothorax. Heart/Mediastinum: Unremarkable. No cardiomegaly. Bones/joints: Moderate thoracic spondylosis. XR/XR chest 1V portable [id number] IMPRESSION: No acute findings.
--- NOTE | 2020-09-08 10:06 | ECG_ITS ---
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 Measurements Intervals [place] Rate: 108 P: 253 GA: 146 QRS: -31 QRSD: 94 T: 28 QT: 337 QTc: 452 Interpretive Statements ATRIAL FLUTTER WITH VARIABLE BLOCK LEFT AXIS DEVIATION [QRS AXIS < -30] MODERATE ST DEPRESSION [0.05+ mV ST DEPRESSION] No previous ECG available for comparison Electronically Signed On 09-09-2020 9:28:20 CDT by Shahana Hernandez M.D. [id number]
[2020-09-08 10:32] LABS: Basophils % 0.6 %; Eosinophils # 0.1 10^3/uL (0.0-0.8); Eosinophils % 1.9 %; Hematocrit 45.7 % (37.0-47.0); Hemoglobin 14.9 g/dL (11.5-15.3); Lymphocytes % 28.4 %; Mean Corpuscular HGB Conc 32.6 g/dL (30.0-36.0); Mean Corpuscular Hemoglobin 30.4 pg (28.0-34.0); Mean Corpuscular Volume 93.3 fL (81-99); Mean Platelet Volume 12.4 fL (7.4-10.4); Monocytes # 0.4 10^3/uL (0.2-0.9); Neutrophils # 4.39 10^3/uL (1.8-7.7); Neutrophils % 62.8 %; Nucleated Red Blood Cells % 0 %; Platelet Count 227 10^3/cmm (130-400); Red Cell Distribution Width 13.2 % (12.1-15.1)
--- NOTE | 2020-09-08 10:46 | ED_ITS ---
HPI - Chest Pain General: Chief Complaint: Chest Pain Stated Complaint: heart palpatations Time Seen by Provider: 09/08/20 10:06 History of Present Illness: HPI narrative: 65-year-old female presents emergency room complaining of chest discomfort that began this morning while she was active lasted about an hour and resolved spontaneously. Began around 8 AM this morning. She was a little short of breath with it had some chest tightness and discomfort. She tells me she has had multiple heart attacks in the past but never had bypass or angiogram or stenting. In discussing with her it sounds like she had rule outs for chest pain and she interpreted as actually having heart attacks. MD complaint: chest pain Onset (ago): hour(s) Timing of current episode: episodic Prior episodes: Yes Onset: during rest Pain location: substernal and left chest Pain radiation: none Severity: mild Quality: tightness and heaviness Relieving factors: nothing Exacerbating factors: nothing Associated symptoms: Deny abdominal pain, diaphoresis, dyspnea, fever(s), leg edema, nausea, palpitations, sense of impending doom, syncope or vomiting Treatment prior to arrival: none Review of Systems Const: Denies: fever(s) or diaphoresis ENMT: Denies: throat pain, ear or mastoid pain, nasal discharge or nasal congestion Card: Denies: palpitations or syncope Resp: Denies: dyspnea GI: Denies: abdominal pain, nausea or vomiting : Denies: flank pain, difficulty voiding, dysuria, urinary frequency or urinary urgency Skin/Breast: Denies: rash or pruritus PFSH ED PFSH: Medical History Bipolar depression CAD (coronary artery disease) Chronic headache Chronic pain syndrome Due to her weight and other comorbidities I do not think that there is much that pain management would be able to do. They can do localized injections or treatments on specific joints but she would never be a surgical candidate. Constipation, chronic COPD (chronic obstructive pulmonary disease) Diabetes mellitus type 2 in obese Fibromyalgia Generalized anxiety disorder GERD (gastroesophageal reflux disease) Hyperlipemia Hypertension, benign Insomnia Major depressive disorder, recurrent, moderate Mixed stress and urge urinary incontinence NONA (obstructive sleep apnea) Uses CPAP Overactive bladder Panic disorder [episodic paroxysmal anxiety] Paroxysmal atrial fibrillation (~08/2020) Peripheral Vascular Disease RLS (restless legs syndrome) Surgical History H/O thyroidectomy H/O: hysterectomy Hx of cholecystectomy S/P appendectomy Family History Mother , at age 75 Hypertension Father , at age 87 Hypertension Denies family history of Lung disease Stroke Social History Smoking and tobacco status: current every day smoker cigarettes Packs smoked per day: 1 Second hand smoke exposure: No Alcohol intake: never Adopted: No Caregiver/support person: No Lives independently: Yes Housing: Apartment Marital status: / Number of children: 8 Number of grandchildren: 14 Highest education level completed: Some College, No Degree service: No Current occupational status: disabled Pets and animals: Yes Pets & animals: dog(s) History of recent travel: No Leisure activites: art, music, reading and other Sexually active: No Current gender identity: Female Lilliam/Restorationist: Yazdanism Special lilliam needs: No Agree to transfusion: Yes Financial difficulty paying for basics: Not Very Hard Female Reproductive History: Para: 8 Spontaneous abortions: No Physical Exam Const: COMMON NORMALS: no acute distress GENERAL APPEARANCE: cooperative and comfortable ORIENTATION/CONSCIOUSNESS: Yes awake, Yes oriented to person, Yes oriented to place and Yes oriented to time HENMT: COMMON NORMALS: normocephalic, atraumatic and hearing grossly normal bilaterally HEAD & SCALP: normocephalic and atraumatic Neck/C-Spine: COMMON NORMALS: no JVD Resp: COMMON NORMALS: normal respiratory effort, No retractions, No use of accessory muscles and clear to auscultation bilaterally AUSCULTATION: clear to auscultation bilaterally Cardio: COMMON NORMALS: no JVD, regular rate, regular rhythm and No murmurs present (Cardio) RATE: regular rate RHYTHM: regular rhythm GI: COMMON NORMALS: Soft to palpation and No hepatosplenomegaly present AUSCULTATION: Yes normoactive bowel sounds PALPATION: Yes Soft to palpation, No Tenderness to palpation present (GI), No Guarding due to palpation present (GI) and Yes No hepatosplenomegaly present Extremity: COMMON NORMALS: normal to inspection, capillary refill normal, no clubbing, cyanosis or edema, no calf tenderness and no pedal edema Neuro: SENSORIUM/ORIENTATION: Yes oriented to person, Yes oriented to place and Yes oriented to time Skin: COMMON NORMALS: no rashes or lesions noted GENERAL SKIN EXAM: no ra shes or lesions noted Course Vital Signs: Vital signs: Vital Signs Temperature 98.2 F 09/09/20 12:00 Pulse Rate 117 H 09/09/20 12:52 Respiratory Rate 20 H 09/09/20 12:52 Blood Pressure 110/84 09/09/20 15:23 Pulse Oximetry 96 09/09/20 12:52 MDM - Chest Pain MDM Narrative: Medical decision making narrative: EKG showed Mild sinus tachycardia. The computer read it as atrial flutter which I disagreed with. The patient then had a brief episode of A. fib with RVR and then also bumped her troponin her symptoms now are resolved, we have not had to put her on any drips she responded well to just single dose of medications discussed with Dr. Metz we will go ahead and the patient on's.. Lab Data: Labs: Lab Results 09/08/20 09/08/20 09/08/20 Range/Units 09:08 09:08 09:08 WBC 7.0 (4.0-10.0) 10^3/ uL RBC 4.90 (4.1-5.3) 10^6/u L Hgb 14.9 (11.5-15.3) g/dL Hct 45.7 (37.0-47.0) % MCV 93.3 (81-99) fL MCH 30.4 (28.0-34.0) pg MCHC 32.6 (30.0-36.0) g/dL RDW 13.2 (12.1-15.1) % Plt Count 227 (130-400) 10^3/c mm MPV 12.4 H (7.4-10.4) fL Neut % (Auto) 62.8 % Lymph % (Auto) 28.4 % [place]dwell % (Auto) 6.0 % Eos % (Auto) 1.9 % Baso % (Auto) 0.6 % Neut # (Auto) 4.39 (1.8-7.7) 10^3/u L Lymph # (Auto) 2.0 (0.8-4.8) 10^3/u L Caldwell # (Auto) 0.4 (0.2-0.9) 10^3/u L Eos # (Auto) 0.1 (0.0-0.8) 10^3/u L Baso # (Auto) 0.0 (0.0-0.1) 10^3/u L Nucleated RBC % (a uto) 0 % Nucleated RBCs # 0.0 /100WBC Sodium 137 (136-145) mmol/L Potassium 3.7 (3.5-5.1) mmol/L Chloride 104 (98-107) mmol/L Carbon Dioxide 22 (22-29) mmol/L Anion Gap 14.7 (5-19) BUN 9 (8-23) mg/dL Creatinine 0.5 (0.5-0.9) mg/dL GFR Calculation 124.6 (90-130) mL/min Glucose 170 H (65-115) mg/dL Calculated Osmolal ity 287 (285-295) mOsm/k g Calcium 8.6 (8.5-10.5) mg/dL Magnesium 2.1 (1.7-2.3) mg/dL Total Bilirubin 0.3 (0.15-1.2) mg/dL AST 26 (0-32) U/L ALT 23 (0-33) U/L Alkaline Phosphata se 127 H (35-105) IU/L Troponin T Baselin e 16 H (0-10) ng/L Troponin T 120 Min lower [place] (0-10) ng/L Delta Troponin T (0-10) ABS# NT-Pro-B Natriuret Pep 834 H (0-125) pg/mL Total Protein 7.4 (6.6-8.7) g/dL Albumin 4.2 (3.5-5.2) g/dL Globulin 3.2 (1.3-4.6) g/dL TSH 0.08 L (0.27-4.20) uIU/ mL 09/08/20 Range/Units 10:59 WBC (4.0-10.0) 10^3/ uL RBC (4.1-5.3) 10^6/u L Hgb (11.5-15.3) g/dL Hct (37.0-47.0) % MCV (81-99) fL MCH (28.0-34.0) pg MCHC (30.0-36.0) g/dL RDW (12.1-15.1) % Plt Count (130-400) 10^3/c mm MPV (7.4-10.4) fL Neut % (Auto) % Lymph % (Auto) % [place] % (Auto) % Eos % (Auto) % Baso % (Auto) % Neut # (Auto) (1.8-7.7) 10^3/u L Lymph # (Auto) (0.8-4.8) 10^3/u L [place]dwell # (Auto) (0.2-0.9) 10^3/u L Eos # (Auto) (0.0-0.8) 10^3/u L Baso # (Auto) (0.0-0.1) 10^3/u L Nucleated RBC % (a uto) % Nucleated RBCs # /100WBC Sodium (136-145) mmol/L Potassium (3.5-5.1) mmol/L Chloride (98-107) mmol/L Carbon Dioxide (22-29) mmol/L Anion Gap (5-19) BUN (8-23) mg/dL Creatinine (0.5-0.9) mg/dL GFR Calculation (90-130) mL/min Glucose (65-115) mg/dL Calculated Osmolal ity (285-295) mOsm/k g Calcium (8.5-10.5) mg/dL Magnesium (1.7-2.3) mg/dL Total Bilirubin (0.15-1.2) mg/dL AST (0-32) U/L ALT (0-33) U/L Alkaline Phosphata se (35-105) IU/L Troponin T Baselin e (0-10) ng/L Troponin T 120 Min lower [place] 23.78 H (0-10) ng/L Delta Troponin T 7.78 (0-10) ABS# NT-Pro-B Natriuret Pep (0-125) pg/mL Total Protein (6.6-8.7) g/dL Albumin (3.5-5.2) g/dL Globulin (1.3-4.6) g/dL TSH (0.27-4.20) uIU/ mL Discharge Plan Discharge Patient Disposition: Admitted As Inpatient Admit Provider: Adali Metz Clinical Impression: Paroxysmal A-fib, Elevated troponin I level, COPD (chronic obstructive pulmonary disease), Hypertension, benign, Atypical chest pain, Diabetes mellitus type 2 in obese, CAD (coronary artery disease) Condition: Stable Coding Level of Care Code ED Charge Master Specialist for Urvashi Shaw
[2020-09-08 10:47] LABS: Troponin(5th) Baseline 16 ng/L (0-10)
[2020-09-08 10:57] LABS: Alanine Aminotransferase 23 U/L (0-33); Albumin Level 4.2 g/dL (3.5-5.2); Alkaline Phosphatase 127 IU/L (35-105); Anion Gap 14.7 (5-19); Aspartate Amino Transferase 26 U/L (0-32); Blood Urea Nitrogen 9 mg/dL (8-23); Calcium 8.6 mg/dL (8.5-10.5); Carbon Dioxide 22 mmol/L (22-29); Chloride 104 mmol/L (98-107); Globulin 3.2 g/dL (1.3-4.6); Glomerular Filtration Rate 124.6 mL/min (90-130); Glucose 170 mg/dL (65-115); Magnesium 2.1 mg/dL (1.7-2.3); NT Pro B Type Natriuretic Pept 834 pg/mL (0-125); Osmolality Calculated 287 mOsm/kg (285-295); Potassium 3.7 mmol/L (3.5-5.1); Sodium 137 mmol/L (136-145); Thyroid Stimulating Hormone 0.08 uIU/mL (0.27-4.20); Total Bilirubin 0.3 mg/dL (0.15-1.2); Total Protein 7.4 g/dL (6.6-8.7)
[2020-09-08 11:31] LABS: Troponin 5 2HR 23.78 ng/L (0-10); Troponin 5 2HR Delta 7.78 ABS# (0-10)
--- NOTE | 2020-09-08 12:06 | ECG_ITS ---
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 Measurements Intervals [place] Rate: 142 P: [place]: QRS: -40 QRSD: 88 T: 25 QT: 306 QTc: 471 Interpretive Statements ATRIAL FIBRILLATION WITH RAPID VENTRICULAR RESPONSE MARKED LEFT AXIS DEVIATION [QRS AXIS < -30] POSSIBLE ANTERIOR MYOCARDIAL INFARCTION [30 ms Q WAVE IN V3/V4, OR R < 0.2 mV IN V4], PROBABLY OLD Compared to ECG 09/08/2020 10:20:09 Myocardial infarct finding now present Sinus tachycardia no longer present ST (T wave) deviation no longer present Electronically Signed On 09-09-2020 17:38:48 CDT by Shahana Hernandez M.D. [id number]
[2020-09-08] MEDS: enoxaparin 120 mg/0.8 mL Syringe 110 MG SUBCUT (13:52)
[2020-09-08] MEDS: metoprolol tartrate 1 mg/1 mL SDV 5 mL 5 MG IV (13:55)
[2020-09-08] MEDS: nitroglycerin 1 gm/inch oint Pkt 0.5 INCH TOPICAL (13:55)
[2020-09-08 15:31] LABS: Troponin 5 6HR 18.34 ng/L (0-10); Troponin 5 6HR Delta 2.34 ng/L (0-12)
--- NOTE | 2020-09-08 16:00 | PC.NURSE ---
From ER Received pt from ER. Denies any chest discomfort. Reports of joint pain from fibromyalgia.Call light handed to pt. Explain home med policy to pt and Pt's all pill bottles are listed in the form and locked in [facility] [facility].
--- NOTE | 2020-09-08 16:06 | ECG_ITS ---
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 Measurements Intervals [place] Rate: 88 P: 256 [place]: 246 QRS: -36 QRSD: 100 T: 9 QT: 367 QTc: 445 Interpretive Statements Atrial fibrillation with a controlled ventricular response rate MARKED LEFT AXIS DEVIATION [QRS AXIS < -30] PATTERN CONSISTENT WITH PULMONARY DISEASE Compared to ECG 09/08/2020 12:06:51 First degree AV block now present Myocardial infarct finding no longer present Electronically Signed On 09-09-2020 19:25:42 CDT by Herber Benoit M.D. [email or web address].[facility].[employer]/store/[id number]
[2020-09-08 16:59] LABS: Glucose Point of Care 128 mg/dL (70-110)
--- NOTE | 2020-09-08 17:32 | PM.HP ---
Providers/Chief Complaint Admitting Physician: Adali Metz MD Primary Care Provider: Kristine Rodriguez MD Chief Complaint: heart palpatations History of Present Illness Lin Henao is a 65 year old female who presented to the emergency room with chief complaint of chest pain and feeling like her heart was racing. She has been having the symptoms off and on but today seemed a bit worse. Occurred when she was trying to get up and walk around. She had associated shortness of breath. Admits to some nasal congestion sore throat and productive cough lately. No nausea or vomiting. Denies orthopnea or PND. Does use a CPAP at night. Has been having some edema. At baseline she uses a wheelchair because she physically has difficulty walking around related to pain and not being able to support her weight. She is able to transfer but cannot walk. She does report increased pain in her shoulders arms and hips lately. 2-hour troponin was in an indeterminate range so request was made for admission. She is a history of obesity, hypertension, hyperlipidemia, diabetes. While she describes a history of coronary artery disease, she is never required any intervention. At the present time she is feeling better without ongoing chest pain. More complaints of joint pains. Review of Systems Const: Denies: fever(s), chills, change in appetite or change in weight (stable last year) Eyes: Denies: change in vision ENMT: Reports: throat pain and nasal congestion Card: Reports: chest pain and edema; Denies: palpitations Resp: Reports: dyspnea and productive cough; Denies: non-productive cough GI: Reports: dysphagia (choking at times, no difficulty swallowing); Denies: abdominal pain, nausea, vomiting, diarrhea, constipation, hematochezia or melena : Reports: urinary frequency; Denies: difficulty voiding or hematuria Musc: Reports: neck pain, back pain, extremity pain and other (shoulders, arms, hips may be worse than usual) Skin/Breast: Reports: sores (left hip/back); Denies: rash or pruritus Neuro: Reports: other (wheelchair, unable to walk, can transfer); Denies: headache(s), numbness in extremities or weakness in extremities Psych: Reports: anxiety and depression; Denies: suicidal ideation or homicidal ideation Jagjit/Lymph: Denies: easy bruising or easy bleeding Medications/Allergies Home Medications Medication Instructions Recorded Confirmed Last Taken Type topiramate 100 mg tablet 100 mg PO TID tab 05/03/19 09/08/20 09/08/20 History nitroglycerin 0.4 mg sublingual 0.4 mg SUBLINGUAL Q5M PRN 05/23/19 09/08/20 Unknown History tablet hydroxyzine pamoate 25 mg capsule 25 mg PO Q6H PRN #120 cap 12/12/19 09/08/20 09/08/20 Rx amitriptyline 100 mg tablet 100 mg PO DAILY #30 tab 07/23/20 09/08/20 09/07/20 Rx buspirone 10 mg tablet 15 mg PO BID #90 tab 07/23/20 09/08/20 09/08/20 Rx albuterol sulfate 90 mcg/actuation 2 puff INHALATION Q6H PRN #8.5 g 08/25/20 09/08/20 Unknown Rx aerosol inhaler Adult Aspirin Regimen 81 mg PO DAILY@79909/08/20 09/08/20 09/08/20 History Colace 100 mg PO BID@09/08/20 09/08/20 09/08/20 History Lasix 40 mg PO BID@09/08/20 09/08/20 09/08/20 History Lunesta 3 mg PO BEDTIME@199909/08/20 09/08/20 09/07/20 History Plavix 75 mg PO DAILY@79909/08/20 09/08/20 09/08/20 History Wellbutrin XL 300 mg PO DAILY@79909/08/20 09/08/20 09/08/20 History celecoxib 200 mg PO DAILY@199909/08/20 09/08/20 09/07/20 History cyclobenzaprine See Rx Instructions .ROUTE .COMPLEX 09/08/20 09/08/20 09/08/20 History duloxetine 60 mg PO BEDTIME@199909/08/20 09/08/20 09/07/20 History famotidine 20 mg PO BID@,09/08/20 09/08/20 09/08/20 History gemfibrozil 600 mg PO DAILY@199909/08/20 09/08/20 09/07/20 History loratadine 10 mg PO BEDTIME@1999 PRN 09/08/20 09/08/20 Unknown History losartan 100 mg PO DAILY@0809/08/20 09/08/20 09/08/20 History metformin 1,000 mg PO BID@09/08/20 09/08/20 09/08/20 History metoprolol succinate 25 mg PO DAILY@0800 09/08/20 09/08/20 09/08/20 History oxybutynin chloride 15 mg PO DAILY@1600 09/08/20 09/08/20 09/07/20 History potassium chloride 20 meq PO BID@09/08/20 09/08/20 09/08/20 History pregabalin 75 mg PO BID@09/08/20 09/08/20 09/08/20 History ropinirole 1.5 mg PO BEDTIME@199909/08/20 09/08/20 09/07/20 History spironolactone 25 mg PO DAILY@0809/08/20 09/08/20 09/08/20 History Allergies Allergy/AdvReac Type Severity Reaction Status Date / Time propoxyphene [From Darvon] Allergy Unknown Unknown Verified 08/25/20 12:40 fluoxetine [From Prozac] AdvReac Severe ADR-Halluci Verified 08/25/20 12:40 nating Additional Medication Information I personally reviewed home medication list and medications received day of admission thus far. PFSH Acute PFSH: Medical History (Updated 09/08/20 @ 23:03 by Adali Metz MD) Bipolar depression CAD (coronary artery disease) Chronic headache Chronic pain syndrome Due to her weight and other comorbidities I do not think that there is much that pain management would be able to do. They can do localized injections or treatments on specific joints but she would never be a surgical candidate. Constipation, chronic COPD (chronic obstructive pulmonary disease) Diabetes mellitus type 2 in obese Fibromyalgia Generalized anxiety disorder GERD (gastroesophageal reflux disease) Hyperlipemia Hypertension, benign Insomnia Major depressive disorder, recurrent, moderate Mixed stress and urge urinary incontinence NONA (obstructive sleep apnea) Uses CPAP Overactive bladder Panic disorder [episodic paroxysmal anxiety] Peripheral Vascular Disease RLS (restless legs syndrome) Surgical History H/O thyroidectomy H/O: hysterectomy Hx of cholecystectomy S/P appendectomy Family History Mother , at age 75 Hypertension Father , at age 87 Hypertension Denies family history of Lung disease Stroke Social History Smoking and tobacco status: current every day smoker cigarettes Packs smoked per day: 1 Second hand smoke exposure: No Alcohol intake: never Adopted: No Caregiver/support person: No Lives independently: Yes Housing: Apartment Marital status: / Number of children: 8 Number of grandchildren: 14 Highest education level completed: Some College, No Degree service: No Current occupational status: disabled Pets and animals: Yes Pets & animals: dog(s) History of recent travel: No Leisure activites: art, music, reading and other Sexually active: No Current gender identity: Female Lilliam/Buddhism: Lutheran Special lilliam needs: No Agree to transfusion: Yes Financial difficulty paying for basics: Not Very Hard Female Reproductive History: Para: 8 Spontaneous abortions: No Vitals/I&O/Wt Last Vital Signs Temp 98.7 F 09/08/20 16:00 Pulse 107 H 09/08/20 16:00 Resp 18 09/08/20 16:00 BP 144/94 09/08/20 15:09 Pulse Ox 97 09/08/20 16:00 09/08/20 09/08/20 09/08/20 06:59 14:59 22:59 Output Total 200 / 200 Balance -200 / -200 Weight last 48 hrs Weight 109.769 kg Weight 111.13 kg Physical Exam Narrative: EXAM NARRATIVE: Constitutional: Awake and alert, cooperative, obese HEENT: Pupils are equally reactive, nasopharynx without rhinorrhea, oropharynx with moist mucous membranes Neck: Large but supple Respiratory: Clear to auscultation bilaterally without any rales rhonchi or wheezes noted Cardiovascular: Regular rate and rhythm, distant heart sounds, no discernible JVD Abdomen: Soft, obese, positive bowel sounds, nontender Extremities: Nontender to palpation particularly at trigger sites, 1+ pitting edema Skin: Extensive erythema in the groin left side more so than right as well as underneath the pannus Neuro: Speech clear, face symmetric, moves all extremities though generally weak Psych: Calm, normal affect Data : 09/08/20 09:08 09/08/20 09:08 A&P Assessment and plan (1) Chest pain: Associated with palpitations. Had an intermediate 2-hour troponin. Reports a history of coronary artery disease but has never necessitated intervention and I think she has been evaluated for episodes of chest pain. Records from Dr. Mcdaniels's office, cardiology, indicate that she follows there for peripheral arterial disease. Status: Acute Qualifiers: Chest pain type: precordial pain Qualified Code(s): R07.2 - Precordial pain (2) Low TSH level: Had similarly low TSH in 2019, denies any known history of hyperthyroidism Status: Acute (3) Hyperlipemia: On gemfibrozil Status: Chronic Qualifiers: Hyperlipidemia type: mixed hyperlipidemia Qualified Code(s): E78.2 - Mixed hyperlipidemia (4) Hypertension, benign: Chronically on losartan, Lasix, metoprolol and Aldactone Status: Chronic (5) Diabetes mellitus type 2 in obese: [id number], on Metformin Status: Chronic (6) Peripheral Vascular Disease: Follows with Dr. Mcdaniels, chronically on aspirin, Plavix Status: Chronic (7) NONA (obstructive sleep apnea): On CPAP Status: Chronic (8) Body mass index (BMI) of 40.1 to 44.9 in adult: Status: Acute (9) Chronic pain syndrome: On Celebrex, Cymbalta, Lyrica Status: Chronic Additional A&P Information Elevated BNP without clinical findings of pulmonary edema Anxiety and depression on multiple medications including Elavil, BuSpar, hydroxyzine, Cymbalta which I think is also a pain adjunct, Topamax and Wellbutrin Restless leg syndrome on Requip Overactive bladder on oxybutynin Observation admission Continue serial cardiac enzymes Limited echocardiogram to evaluate ejection fraction T3 and free T4 Continue home medications as ordered I have currently continued Celebrex given chronic pain situation but should she have any further symptoms develop may have to consider discontinuation Monitor vital signs closely for change Home CPAP Recheck laboratory studies in the morning Supportive care otherwise DVT prophylaxis: lovenox Plans, findings and concerns discussed with patient and she was given an opportunity to ask questions. Anticipated Disposition: Home Code Status: Full code Attestations Medical Necessity Statement*: Currently anticipate a stay less than two midnights in a patient presenting with chest pain somewhat atypical but with risk factors and intermediate 2-hour troponin level. Plans are as noted. Also has significant Roland decreased TSH. Coding Level of Care Code Acute Road Oiling Truck Driver for Chg Fwd Diagnoses Chest pain R07.2 Chest pain type: precordial pain Low TSH level R79.89 Hyperlipemia E78.2 Hyperlipidemia type: mixed hyperlipidemia Hypertension, benign I10 Diabetes mellitus type 2 in obese E11.69; E66.9 Peripheral Vascular Disease I73.9 NONA (obstructive sleep apnea) G47.33 Body mass index (BMI) of 40.1 to 44.9 in adult Z68.41 Chronic pain syndrome G89.4
[2020-09-08] MEDS: BuSPIRONE 10 mg Tablet 15 MG PO (18:45)
[2020-09-08] MEDS: oxybutynin 5 mg Tablet PO (18:45)
[2020-09-08 20:05] LABS: Free T4 Free Thyroxine 1.01 ng/dL (0.82-1.77); T3 Free 2.9 PG/ML (2.0-4.4)
[2020-09-08 20:16] LABS: Glucose Point of Care 210 mg/dL (70-110)
[2020-09-08] MEDS: duloxetine 60 mg Capsule PO (20:55)
[2020-09-08] MEDS: ropinirole 1 mg Tablet 1.5 MG PO (20:55)
[2020-09-08] MEDS: gemfibrozil 600 mg Tablet PO (20:56)
[2020-09-08] MEDS: topiramate 100 mg Tablet PO (20:56)
[2020-09-08] MEDS: FUROsemide 40 mg Tablet PO (20:56)
[2020-09-08] MEDS: pregabalin 75 mg Capsule PO (20:56)
[2020-09-08] MEDS: zolpidem 5 mg Tablet PO (20:56)
[2020-09-08] MEDS: famotidine 20 mg Tablet PO (20:56)
[2020-09-08] MEDS: CELEcoxib 200 mg Capsule PO (21:40)
[2020-09-09] VITALS (8 sets, daily range): BP systolic 110–124; BP diastolic 73–87; PULSE 87–117; RESP 14–20; TEMP 36.6–36.8; O2SAT 96–98
[2020-09-09] MEDS: fluconazole 100 mg Tablet 150 MG PO (00:09)
[2020-09-09 04:49] LABS: Basophils % 0.4 %; Eosinophils # 0.2 10^3/uL (0.0-0.8); Eosinophils % 1.8 %; Hematocrit 43.4 % (37.0-47.0); Lymphocytes # 3.5 10^3/uL (0.8-4.8); Lymphocytes % 42.5 %; Mean Corpuscular HGB Conc 32.3 g/dL (30.0-36.0); Mean Corpuscular Hemoglobin 30.4 pg (28.0-34.0); Mean Corpuscular Volume 94.3 fL (81-99); Mean Platelet Volume 12.1 fL (7.4-10.4); Monocytes # 0.5 10^3/uL (0.2-0.9); Monocytes % 6.1 %; Nucleated Red Blood Cells % 0 %; Platelet Count 235 10^3/cmm (130-400); Red Cell Distribution Width 13.4 % (12.1-15.1); White Blood Count 8.2 10^3/uL (4.0-10.0)
[2020-09-09 05:01] LABS: Anion Gap 11.3 (5-19); Blood Urea Nitrogen 12 mg/dL (8-23); Calcium 8.7 mg/dL (8.5-10.5); Carbon Dioxide 27 mmol/L (22-29); Chloride 104 mmol/L (98-107); Glomerular Filtration Rate 84.5 mL/min (90-130); Glucose 149 mg/dL (65-115); Magnesium 2.1 mg/dL (1.7-2.3); Osmolality Calculated 289 mOsm/kg (285-295); Potassium 4.3 mmol/L (3.5-5.1); Sodium 138 mmol/L (136-145)
[2020-09-09 05:21] LABS: Chol HDL Ratio 6.27 mg/dL (0.0-4.40); Cholesterol 163 mg/dL (0-200); HDL Cholesterol 26 mg/dL (60-100); LDL Cholesterol Calculated 90 mg/dL (50-129); LDL HDL Ratio 3.46 RATIO (0.00-3.22); Triglycerides 234 mg/dL (0-150)
[2020-09-09 05:55] LABS: Estmated Average Glucose 160; Hemoglobin A1C 7.2 % (4.0-6.0)
[2020-09-09 06:55] LABS: Glucose Point of Care 138 mg/dL (70-110)
[2020-09-09] MEDS: losartan 50 mg Tablet 100 MG PO (08:43)
[2020-09-09] MEDS: metoprolol succinate ER (24 HR) 25 mg Tablet PO (08:43)
[2020-09-09] MEDS: famotidine 20 mg Tablet PO (08:43)
[2020-09-09] MEDS: pregabalin 75 mg Capsule PO (08:43)
[2020-09-09] MEDS: topiramate 100 mg Tablet PO ×2 (08:43→15:30)
[2020-09-09] MEDS: buPROPion XL (24 HR) 300 mg Tablet PO (08:44)
[2020-09-09] MEDS: spironolactone 25 mg Tablet PO (08:44)
[2020-09-09] MEDS: oxybutynin 5 mg Tablet PO ×2 (08:44→17:29)
[2020-09-09] MEDS: BuSPIRONE 10 mg Tablet 15 MG PO ×2 (08:45→17:29)
[2020-09-09] MEDS: FUROsemide 40 mg Tablet PO (08:45)
[2020-09-09] MEDS: clopidogrel 75 mg Tablet PO (08:45)
[2020-09-09] MEDS: docusate sodium 100 mg Capsule PO ×2 (08:45→17:09)
[2020-09-09] MEDS: potassium chloride ER 20 mEq Tablet PO (08:45)
[2020-09-09] MEDS: aspirin 81 mg EC Tablet PO (08:45)
[2020-09-09] MEDS: nystatin powder 15 gm Btl 1 APPLIC TOPICAL ×2 (08:49→17:31)
[2020-09-09 11:44] LABS: Glucose Point of Care 197 mg/dL (70-110)
--- NOTE | 2020-09-09 11:55 | P.DS_ITS ---
Discharge Providers Date of Admission: 09/08/20 13:06 Date of Discharge: September 09, 2020 Attending Provider at Admission: Adali Metz MD Attending Provider at Discharge: Adali Metz MD Primary Care Provider: Kristine Rodriguez MD Diagnoses at Discharge Discharge Diagnosis (1) Chest pain: Status: Resolved Qualifiers: Chest pain type: precordial pain Qualified Code(s): R07.2 - Precordial pain (2) Paroxysmal atrial fibrillation: Status: Acute (3) Low TSH level: Status: Acute Permanent problem details: with normal free T3 and free T4 (4) Chronic anticoagulation: Status: Acute Permanent problem details: initiated apixaban 08/2020 for paroxysmal atrial fibrillation (5) Hypertension, benign: Status: Chronic (6) NONA (obstructive sleep apnea): Status: Chronic Permanent problem details: Uses CPAP (7) Hyperlipemia: Status: Chronic Qualifiers: Hyperlipidemia type: mixed hyperlipidemia Qualified Code(s): E78.2 - Mixed hyperlipidemia (8) Diabetes mellitus type 2 in obese: Status: Chronic (9) Peripheral Vascular Disease: Status: Chronic (10) Body mass index (BMI) of 40.1 to 44.9 in adult: Status: Acute (11) Chronic pain syndrome: Status: Chronic Permanent problem details: Due to her weight and other comorbidities I do not think that there is much that pain management would be able to do. They can do localized injections or treatments on specific joints but she would never be a surgical candidate. Reason for Visit Reason for Visit: heart palpatations Hospital Course Hospital Course Mrs. Henao presented to the emergency room chief complaint of chest pain and palpitations. She had intermediate elevation in troponin from baseline to 2- hour level and was admitted for further evaluation. Further troponins did not demonstrate significant delta. Telemetry monitoring and EKGs did indicate that she is having paroxysmal atrial fibrillation. Rate is generally controlled with high around 100. She is chronically on metoprolol succinate 25 mg daily. I have increase this to 50 mg daily. I also added Mor. Reviewed the fact that this is a blood thinner with Mrs. Henao, explaining the purpose to try to decrease the risk of clot formation and subsequent stroke related to the abnormal heart rhythm. I gave her an opportunity to ask questions about this new diagnosis and management. This may be some of the discomfort she has been experiencing lately. Currently recommend continuing other medications. I did touch base with her primary care provider. She had had a quite low TSH at 0.08. Free T3 and free T4 were normal. Recommend rechecking values in about a month. She does have sleep apnea but reports using her CPAP regularly even when she is napping. Limited echocardiogram was done during this hospital stay but results were pending read at the time of discharge. I do have the results currently an ejection fraction was at 60% with no diagnostic regional wall motion abnormalities. At the time of discharge patient was feeling better overall. She had a regular rhythm and clear lungs. She was felt stable for discharge with outpatient follow-up. Discharge Data Data Completed and Pending: Completed Studies During Hospitalization Category Date Time Status XR chest 1V ruma ble [id number] Stat Exams 09/08/20 10:06 Completed Pending at discharge Category Date Time Status CV echo limited [id number] Routine Ultrasound 09/09/20 23:06 Taken Laboratory Last Values WBC 8.2 10^3/uL (4.0- 10.0) 09/09/20 04:25 RBC 4.60 10^6/uL (4.1 -5.3) 09/09/20 04:25 Hgb 14.0 g/dL (11.5-1 5.3) 09/09/20 04:25 Hct 43.4 % (37.0-47.0 ) 09/09/20 04:25 MCV 94.3 fL (81-99) 09/09/20 04:25 MCH 30.4 pg (28.0-34. 0) 09/09/20 04:25 MCHC 32.3 g/dL (30.0-3 6.0) 09/09/20 04:25 RDW 13.4 % (12.1-15.1 ) 09/09/20 04:25 Plt Count 235 10^3/cmm (130 -400) 09/09/20 04:25 MPV 12.1 fL (7.4-10.4 ) H 09/09/20 04:25 Neut % (Auto) 49.0 % 09/09/20 04:25 Lymph % (Auto) 42.5 % 09/09/20 04:25 [place] % (Auto) 6.1 % 09/09/20 04:25 Eos % (Auto) 1.8 % 09/09/20 04:25 Baso % (Auto) 0.4 % 09/09/20 04:25 Neut # (Auto) 4.00 10^3/uL (1.8 -7.7) 09/09/20 04:25 Lymph # (Auto) 3.5 10^3/uL (0.8- 4.8) 09/09/20 04:25 [place] # (Auto) 0.5 10^3/uL (0.2- 0.9) 09/09/20 04:25 Eos # (Auto) 0.2 10^3/uL (0.0- 0.8) 09/09/20 04:25 Baso # (Auto) 0.0 10^3/uL (0.0- 0.1) 09/09/20 04:25 Nucleated RBC % (a uto) 0 % 09/09/20 04:25 Nucleated RBCs # 0.0 /100WBC 09/09/20 04:25 Sodium 138 mmol/L (136-1 45) 09/09/20 04:25 Potassium 4.3 mmol/L (3.5-5 .1) 09/09/20 04:25 Chloride 104 mmol/L (98-10 7) 09/09/20 04:25 Carbon Dioxide 27 mmol/L (22-29) 09/09/20 04:25 Anion Gap 11.3 (5-19) 09/09/20 04:25 BUN 12 mg/dL (8-23) 09/09/20 04:25 Creatinine 0.7 mg/dL (0.5-0. 9) 09/09/20 04:25 GFR Calculation 84.5 mL/min (90-1 30) L 09/09/20 04:25 Glucose 149 mg/dL (65-115 ) H 09/09/20 04:25 POC Glucose 197 mg/dL (70-110 ) H 09/09/20 11:26 Estimat Average Gl ucose 160 09/09/20 04:25 Hemoglobin A1c 7.2 % (4.0-6.0) H 09/09/20 04:25 Calculated Osmolal ity 289 mOsm/kg (285- 295) 09/09/20 04:25 Calcium 8.7 mg/dL (8.5-10 .5) 09/09/20 04:25 Magnesium 2.1 mg/dL (1.7-2. 3) 09/09/20 04:25 Total Bilirubin 0.3 mg/dL (0.15-1 .2) 09/08/20 09:08 AST 26 U/L (0-32) 09/08/20 09:08 ALT 23 U/L (0-33) 09/08/20 09:08 Alkaline Phosphata se 127 IU/L (35-105) H 09/08/20 09:08 Troponin T Baselin e 16 ng/L (0-10) H 09/08/20 09:08 Troponin T 120 Min [place] 23.78 ng/L (0-10) H 09/08/20 10:59 Delta Troponin T 7.78 ABS# (0-10) 09/08/20 10:59 Troponin T Hi Sens 6Hr 18.34 ng/L (0-10) H 09/08/20 15:02 Troponin T Hi Sens 6Hr Delta 2.34 ng/L (0-12) 09/08/20 15:02 NT-Pro-B Natriuret Pep 834 pg/mL (0-125) H 09/08/20 09:08 Total Protein 7.4 g/dL (6.6-8.7 ) 09/08/20 09:08 Albumin 4.2 g/dL (3.5-5.2 ) 09/08/20 09:08 Globulin 3.2 g/dL (1.3-4.6 ) 09/08/20 09:08 Triglycerides 234 mg/dL (0-150) H 09/09/20 04:25 Cholesterol 163 mg/dL (0-200) 09/09/20 04:25 LDL Cholesterol, C alc 90 mg/dL (50-129) 09/09/20 04:25 HDL Cholesterol 26 mg/dL (60-100) L 09/09/20 04:25 LDL/HDL Ratio 3.46 RATIO (0.00- 3.22) H 09/09/20 04:25 Cholesterol/HDL Ra abilio 6.27 mg/dL (0.0-4 .40) H 09/09/20 04:25 TSH 0.08 uIU/mL (0.27 -4.20) L 09/08/20 09:08 Free T4 1.01 ng/dL (0.82- 1.77) 09/08/20 15:02 Free T3 2.9 PG/ML (2.0-4. 4) 09/08/20 15:02 Vitals: Last Vital Signs Temp 98.1 F 09/09/20 07:37 Pulse 112 H 09/09/20 07:37 Resp 15 09/09/20 07:37 BP 124/73 09/09/20 08:43 Pulse Ox 96 09/09/20 07:37 Discharge Plan Discharge Patient Disposition: Home Condition: Stable Prescriptions: New metoprolol succinate 50 mg tablet extended release 24 hr 50 mg PO DAILY Qty: 30 RF: 0 apixaban 5 mg tablet 5 mg PO BID Qty: 60 RF: 0 Continued topiramate [Topamax] 100 mg tablet 100 mg PO TID RF: 0 nitroglycerin 0.4 mg tablet, sublingual 0.4 mg SUBLINGUAL Q5M PRN (Reason: Chest Pain) RF: 0 amitriptyline 100 mg tablet 100 mg PO DAILY Qty: 30 RF: 3 buspirone 10 mg tablet 15 mg PO BID Qty: 90 RF: 3 albuterol sulfate [Ventolin HFA] 90 mcg/actuation HFA aerosol inhaler 2 puff INHALATION Q6H PRN (Reason: shortness of breath or wheezing) Qty: 8.5 RF: 5 hydroxyzine pamoate 25 mg capsule 25 mg PO Q6H PRN (Reason: itching or pain) Qty: 120 RF: 3 celecoxib 200 mg capsule 200 mg PO DAILY@1999 RF: 0 Lasix 40 mg tablet 40 mg PO BID@ RF: 0 oxybutynin chloride 15 mg tablet extended release 24 hr 15 mg PO DAILY@1600 RF: 0 ropinirole 1 mg tablet 1.5 mg PO BEDTIME@1999 RF: 0 Plavix 75 mg tablet 75 mg PO DAILY@0800 RF: 0 Adult Aspirin Regimen 81 mg tablet,delayed release (DR/EC) 81 mg PO DAILY@0800 RF: 0 spironolactone 25 mg tablet 25 mg PO DAILY@00 RF: 0 famotidine 20 mg tablet 20 mg PO BID@ RF: 0 gemfibrozil 600 mg tablet 600 mg PO DAILY@1999 RF: 0 metformin 1,000 mg tablet 1,000 mg PO BID@ RF: 0 Colace 100 mg capsule 100 mg PO BID@,16 RF: 0 losartan 100 mg tablet 100 mg PO DAILY@0800 RF: 0 loratadine 10 mg tablet 10 mg PO BEDTIME@1999 PRN (Reason: allergy symptoms) RF: 0 cyclobenzaprine 5 mg tablet See Rx Instructions .ROUTE .COMPLEX RF: 0 Wellbutrin XL 300 mg tablet extended release 24 hr 300 mg PO DAILY@0800 RF: 0 duloxetine 60 mg capsule,delayed release(DR/EC) 60 mg PO BEDTIME@1999 RF: 0 Lunesta 3 mg tablet 3 mg PO BEDTIME@1999 RF: 0 pregabalin 75 mg capsule 75 mg PO BID@ RF: 0 potassium chloride 20 mEq tablet extended release 20 meq PO BID@ RF: 0 Discontinued metoprolol succinate 25 mg tablet extended release 24 hr 25 mg PO DAILY@0800 RF: 0 Discharge Orders: Discharge Order (Routine); Ordered 09/09/20 Ordered By: Adali Metz Other Ambulatory Orders: T3 Free (Routine) Timeframe: 1 Month Location: Determined by Patient Ordered By: Adali Metz Free T4 Free Thyroxine (Routine) Timeframe: 1 Month Location: Determined by Patient Ordered By: Adali Metz Thyroid Stimulating Hormone (Routine) Timeframe: 1 Month Location: Determined by Patient Ordered By: Adali Metz Referrals: Rehana Ramos MD [Physician] - 2 weeks (Please follow-up with Dr. Ramos on October 02 at 1:30P.M. Your previous appointment appointment with Dr. Ramos has been cancelled and replaced with this appointment . If you have any questions or need to reschedule. Please call ) Kristine Rodriguez MD [Primary Care Provider] - 1 week (Please follow-up with Dr. Rodriguez on September 16 at 10:45A.M. If you have any questions or need to reschedule. Please call ) Patient Instructions: Apixaban (By mouth), Atrial Fibrillation (DC), Chest Pain (DC), Chest Pain Stoplight, Opioid Safety Activity Restrictions/Additional Instructions: Who presented with some chest pain and palpitations. You were ultimately found to have an intermittent irregular heart rhythm called atrial fibrillation. Heart rate was around 100-110 when you had this abnormal rhythm. I suspect that this is the cause of your symptoms. Your home metoprolol dose was increased from 25 to 50 mg once a day. As we discussed, I have added Eliquis/apixaban which is a blood thinner to help keep you from developing any blood clots in your heart related to this abnormal heart rhythm. This medication will help decrease the risk of stroke and other complications. You are at increased risk of bleeding with this medication so be careful. Information on atrial fibrillat ion and this medication will be in your discharge packet. Continue using your CPAP regularly as indicated. As we discussed sleep apnea and thyroid problems are 1 of many things that might contribute to this abnormal rhythm. Your TSH was low. Free T3 and free T4 however were normal. I let Dr. Rodriguez, your primary care provider know about this abnormality and that you will need to have blood work rechecked in about a month. Dr. Rodriguez is also aware of medication changes. Appointments for follow-up with Dr. Rodriguez as well as with Dr. Ramos with ccardiology have been ordered. You had a limited echocardiogram while here but official read from this is pending. Serial cardiac enzymes did not show significant elevation. You can continue your other chronic medications. No changes to other medications have been made currently. Ideally we would like to get you on fewer medications chronically. Discussed with your doctors. Discharge Attestations Time Spent in Discharge Care*: greater than 30 min Specific Discharge Activities: educating patient, discussing with pcp/other providers, discussing with rehabilitation caseworker/social workers/dc planners, documenting/other paperwork and evaluating patient/reviewing data Status at Discharge: Cognitive status at discharge: cognitively intact , Behavioral status at discharge: cooperative , Quality Metrics Clinical Quality Measures During this hospital stay, did patient experience: None Coding Level of Care Code Acute [facility] note Diagnoses Chest pain R07.2 Chest pain type: precordial pain Paroxysmal atrial fibrillation I48.0 Low TSH level R79.89 Chronic anticoagulation Z79.01 Hypertension, benign I10 NONA (obstructive sleep apnea) G47.33 Hyperlipemia E78.2 Hyperlipidemia type: mixed hyperlipidemia Diabetes mellitus type 2 in obese E11.69; E66.9 Peripheral Vascular Disease I73.9 Body mass index (BMI) of 40.1 to 44.9 in adult Z68.41 Chronic pain syndrome G89.4
[2020-09-09 16:11] LABS: Glucose Point of Care 130 mg/dL (70-110)
[2020-09-09] MEDS: enoxaparin 40 mg/0.4 mL Syringe SUBCUT (17:30)
--- NOTE | 2020-09-09 19:11 | PC.NURSE ---
Patient left via [facility] transport. Discharge education has been provided and patient has no questions or concerns. IV removed with no issues. Patient in good spirits and VS stable upon departure.
--- NOTE | 2020-09-09 23:06 | USCV_ITS ---
Lin Henao Age: 65 Gender: F : 1955 Exam Date: 09/09/2020 06:20 Ordering Phys: Adali Metz MD Technologist: Triny Damon Exam Location: [facility] Indication: CHEST PAIN, LV function BP: 123 / 79 HR: 89 Rhythm: Sinus Technical Quality: Technically difficult study due to body habitus MEASUREMENTS (Male / Female) Normal Values 2D ECHO LV Diastolic Diameter PLAX 3.6 cm 4.2 - 5.9 / 3.9 - 5.3 cm LV Systolic Diameter PLAX 2.7 cm IVS Diastolic Thickness 1.4 cm 0.6 - 1.0 / 0.6 - 0.9 cm IVS Systolic Thickness 1.8 cm LVPW Diastolic Thickness 1.5 cm 0.6 - 1.0 / 0.6 - 0.9 cm LVPW Systolic Thickness 1.7 cm LVOT Diameter 2.0 cm LV Ejection Fraction 2D Teich 52.3 % LV Ejection Fraction MOD 2C 51.7 % LV Ejection Fraction 2C AL 52.9 % LA Diameter 3.7 cm LA Width 3.2 cm LA Height 3.7 cm RA Width 2.5 cm RA Height 4.0 cm Aorta at Sinotubular Diameter 2.0 cm M-MODE LV Diastolic Diameter MM 4.4 cm 4.2 - 5.9 / 3.9 - 5.3 cm LV Systolic Diameter MM 3.1 cm LV Ejection Fraction MM Teich 57.9 % IVS Diastolic Thickness MM 1.2 cm 0.6 - 1.0 / 0.6 - 0.9 cm IVS Systolic Thickness MM 1.4 cm LVPW Diastolic Thickness MM 1.2 cm 0.6 - 1.0 / 0.6 - 0.9 cm LVPW Systolic Thickness MM 1.7 cm Aortic Annulus Diameter 2.9 cm LA Ao Ratio MM 1.4 MV E Point Septal Separation 0.5 cm FINDINGS Left Ventricle Normal left ventricular cavity size. Normal left ventricular systolic function. Left ventricular ejection fraction is estimated at 60 %. No diagnostic regional wall motion abnormality. Right Ventricle Normal right ventricular size and systolic function. Right Atrium Normal right atrial size. Left Atrium Normal left atrial size. Mitral Valve Mildly thickened mitral valve. Aortic Valve Aortic valve not well visualized. Tricuspid Valve Tricuspid valve not well visualized. Pulmonic Valve Pulmonic valve not well visualized. Pericardium Probably trivial pericardial effusion. Echo free space anterior to the right ventricle likely represents a fat pad. Aorta Normal size aortic root and proximal ascending aorta. CONCLUSIONS 1. This is a technically very difficult and limited 2D study. 2. Normal left ventricular cavity size. Normal left ventricular systolic function. Left ventricular ejection fraction is estimated at 60 %. No diagnostic regional wall motion abnormality. 2. Normal right ventricular size and systolic function. 4. Probable trivial pericardial effusion. Echo free space anterior to the right ventricle likely represents a fat pad. 5. Valves were not assessed completely in the study . 6. No prior similar studies to compare. Shahana Hernandez MD (Electronically Signed) Final Date: 09 Sep 2020 17:35 S
--- NOTE | 2020-09-10 18:58 | PC.RESP ---
Smoking Cessation and Pulmonary Rehab information sent to patient.
== END 2020-09-09 19:13 | disposition home or self-care (01) ==
LOC: ER 14:48 → CSU 15:11
PROVIDERS: Nurse Practitioner Family; Admitting Provider Hospitalist; Emergency Provider Family Medicine; PCP Family Medicine; Visit Provider Hospitalist
DX: R07.2 Precordial pain (principal); I48.0 Paroxysmal atrial fibrillation; R79.89 Other specified abnormal findings of blood chemistry; Z79.01 Long term (current) use of anticoagulants; I10 Essential (primary) hypertension; G47.33 Obstructive sleep apnea (adult) (pediatric); E78.2 Mixed hyperlipidemia; E11.69 Type 2 diabetes mellitus with other specified complication; E66.9 Obesity, unspecified; Z68.41 Body mass index [BMI] 40.0-44.9, adult; I73.9 Peripheral vascular disease, unspecified; G89.4 Chronic pain syndrome; Z79.82 Long term (current) use of aspirin; I25.10 Atherosclerotic heart disease of native coronary artery without angina pectoris; J44.9 Chronic obstructive pulmonary disease, unspecified; E78.5 Hyperlipidemia, unspecified
CPT/HCPCS: 36415; 36416; 71045; 80048; 80053; 80061; 82962; 83036; 83735; 83880; 84439; 84443; 84481; 84484; 85025; 93005; 93308; 94660; 96361; 96372; 96374; 99285; G0378; J1650; J1815; J3490

== ENCOUNTER 2020-09-21 18:44 | Observation (INO) | payer MEDICARE, MEDICAID, SELFPAY ==
[2020-09-02 16:11] VITALS: BP 134/75; BMI 41.9
--- NOTE | 2020-09-21 18:46 | ECG_ITS ---
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 Measurements Intervals [place] Rate: 115 P: [place]: QRS: -57 QRSD: 92 T: 57 QT: 352 QTc: 489 Interpretive Statements ATRIAL FLUTTER/TACHYCARDIA WITH RAPID VENTRICULAR RESPONSE PATTERN CONSISTENT WITH PULMONARY DISEASE LEFT ANTERIOR FASCICULAR BLOCK [QRS AXIS <= -45, QR IN I, RS IN II] ST DEPRESSION, CONSIDER SUBENDOCARDIAL INJURY [0.1+ mV ST DEPRESSION] Compared to ECG 09/09/2020 00:04:26 Left anterior fascicular block now present ST (T wave) deviation now present Atrial fibrillation no longer present Left-axis deviation no longer present Electronically Signed On 09-21-2020 21:00:33 CDT by Kevon Ge M.D. [id number]
--- NOTE | 2020-09-21 18:46 | XRR_ITS ---
PROCEDURE INFORMATION: Exam: XR Chest Exam date and time: 09/21/2020 6:52 PM Age: 65 years old Clinical indication: Sternal or substernal pain; Additional info: Cp TECHNIQUE: Imaging protocol: XR of the chest. Views: 1 view. COMPARISON: CR XR chest 1V portable [id number] 09/08/2020 10:19 AM FINDINGS: Lungs: Unremarkable. No consolidation. Pleural spaces: Unremarkable. No pleural effusion. No pneumothorax. Heart/Mediastinum: Unremarkable. No cardiomegaly. Bones/joints: Unremarkable. XR/XR chest 1V portable [id number] IMPRESSION: No acute findings.
[2020-09-21 18:57] LABS: Basophils % 0.4 %; Eosinophils # 0.2 10^3/uL (0.0-0.8); Eosinophils % 1.7 %; Hematocrit 42.8 % (37.0-47.0); Lymphocytes # 3.4 10^3/uL (0.8-4.8); Lymphocytes % 35.6 %; Mean Corpuscular HGB Conc 32.7 g/dL (30.0-36.0); Mean Corpuscular Hemoglobin 30.4 pg (28.0-34.0); Mean Platelet Volume 12.5 fL (7.4-10.4); Monocytes # 0.6 10^3/uL (0.2-0.9); Monocytes % 5.8 %; Neutrophils # 5.29 10^3/uL (1.8-7.7); Neutrophils % 56.3 %; Nucleated Red Blood Cells % 0 %; Platelet Count 224 10^3/cmm (130-400); Red Cell Distribution Width 13.2 % (12.1-15.1); White Blood Count 9.4 10^3/uL (4.0-10.0)
[2020-09-21 18:59] VITALS: BP 92/57; PULSE 117; RESP 19; TEMP 37; O2SAT 97; BMI 42.0
[2020-09-21 19:20] LABS: Troponin(5th) Baseline 16 ng/L (0-10)
[2020-09-21 19:30] LABS: Alanine Aminotransferase 26 U/L (0-33); Albumin Level 4.4 g/dL (3.5-5.2); Alkaline Phosphatase 123 IU/L (35-105); Anion Gap 20.8 (5-19); Aspartate Amino Transferase 34 U/L (0-32); Blood Urea Nitrogen 9 mg/dL (8-23); Calcium 8.9 mg/dL (8.5-10.5); Carbon Dioxide 21 mmol/L (22-29); Chloride 103 mmol/L (98-107); Globulin 2.5 g/dL (1.3-4.6); Glomerular Filtration Rate 84.5 mL/min (90-130); Glucose 191 mg/dL (65-115); NT Pro B Type Natriuretic Pept 1016 pg/mL (0-125); Osmolality Calculated 296 mOsm/kg (285-295); Potassium 3.8 mmol/L (3.5-5.1); Sodium 141 mmol/L (136-145); Total Bilirubin 0.3 mg/dL (0.15-1.2); Total Protein 6.9 g/dL (6.6-8.7)
--- NOTE | 2020-09-21 20:46 | ECG_ITS ---
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 Measurements Intervals [place] Rate: 116 P: [place]: QRS: -58 QRSD: 93 T: 46 QT: 238 QTc: 331 Interpretive Statements ATRIAL FLUTTER/TACHYCARDIA WITH RAPID VENTRICULAR RESPONSE PATTERN CONSISTENT WITH PULMONARY DISEASE LEFT ANTERIOR FASCICULAR BLOCK [QRS AXIS <= -45, QR IN I, RS IN II] ST DEPRESSION, CONSIDER SUBENDOCARDIAL INJURY [0.1+ mV ST DEPRESSION] Compared to ECG 09/21/2020 18:49:52 No significant changes Electronically Signed On 09-21-2020 21:01:22 CDT by Kevon Ge M.D. [id number]
[2020-09-21 20:55] LABS: Troponin 5 2HR 15.85 ng/L (0-10)
[2020-09-21 21:06] LABS: Troponin 5 2HR Delta -0.15 ABS# (0-10)
[2020-09-21 22:04] VITALS: BP 134/65; PULSE 116; RESP 20; TEMP 36.7; O2SAT 97
[2020-09-21 22:28] LABS: Blood Urine Neg (Negative); Glucose Urine UA Norm (Normal); Ketones Urine Negative (Negative); Nitrate Urine Positive (Negative); Protein Urine Neg (Negative); Urine Color Yellow (Yellow); pH Urine 5 (5-7)
[2020-09-21 22:29] LABS: Add Urine Microscopic? YES; Bilirubin Urine 1+ (Negative); Leukocyte Esterase Urine Negative (Negative); Urobilinogen Urine Norm (Negative)
[2020-09-21 22:44] LABS: Add Urine Culture? No; Bacteria Urine 4+ /hpf; RBC Urine 0-4 /hpf (0-2); Squamous Epithelial Cell Urine 15-25 /hpf (0-5); WBC Urine 0-4 /hpf (0-5)
[2020-09-21 22:52] VITALS: BP 136/72; PULSE 118; RESP 19; TEMP 36.8; O2SAT 97
[2020-09-21 23:41] LABS: Thyroid Stimulating Hormone 0.36 uIU/mL (0.27-4.20)
--- NOTE | 2020-09-21 23:45 | P.HP_ITS ---
Providers/Chief Complaint Primary Care Provider: Kristine Rodriguez MD Chief Complaint: CHEST PAIN History of Present Illness Lin Henao is a 65 year old female with past medical history of atrial fibrillation, hypertension, coronary artery disease, diabetes, fibromyalgia who presents to emergency room with complaints of chest pain. It is substernal moderate sharp without radiation. It is intermittent. The last episode started early this morning. Exacerbated by physical activities and improved with 2 doses of nitroglycerin. Ports associated palpitations. Denies diaphoresis or shortness of breath. No cough. No nausea or vomiting. No abdominal pain. No fever or chills. She reports taking her medications regularly. Review of Systems General: Reports: 10 or more systems reviewed and unremarkable except in HPI and below Medications/Allergies Home Medications Medication Instructions Recorded Confirmed Last Taken Type topiramate 100 mg tablet 100 mg PO TID tab 05/03/19 09/08/20 09/08/20 History nitroglycerin 0.4 mg sublingual 0.4 mg SUBLINGUAL Q5M PRN 05/23/19 09/08/20 Unknown History tablet hydroxyzine pamoate 25 mg capsule 25 mg PO Q6H PRN #120 cap 12/12/19 09/08/20 09/08/20 Rx amitriptyline 100 mg tablet 100 mg PO DAILY #30 tab 07/23/20 09/08/20 09/07/20 Rx buspirone 10 mg tablet 15 mg PO BID #90 tab 07/23/20 09/08/20 09/08/20 Rx albuterol sulfate 90 mcg/actuation 2 puff INHALATION Q6H PRN #8.5 g 08/25/20 09/08/20 Unknown Rx aerosol inhaler Adult Aspirin Regimen 81 mg PO DAILY@79909/08/20 09/08/20 09/08/20 History Colace 100 mg PO BID@09/08/20 09/08/20 09/08/20 History Lasix 40 mg PO BID@09/08/20 09/08/20 09/08/20 History Lunesta 3 mg PO BEDTIME@199909/08/20 09/08/20 09/07/20 History Plavix 75 mg PO DAILY@79909/08/20 09/08/20 09/08/20 History Wellbutrin XL 300 mg PO DAILY@79909/08/20 09/08/20 09/08/20 History celecoxib 200 mg PO DAILY@199909/08/20 09/08/20 09/07/20 History cyclobenzaprine See Rx Instructions .ROUTE .COMPLEX 09/08/20 09/08/20 09/08/20 History duloxetine 60 mg PO BEDTIME@199909/08/20 09/08/20 09/07/20 History famotidine 20 mg PO BID@,09/08/20 09/08/20 09/08/20 History gemfibrozil 600 mg PO DAILY@199909/08/20 09/08/20 09/07/20 History loratadine 10 mg PO BEDTIME@1999 PRN 09/08/20 09/08/20 Unknown History losartan 100 mg PO DAILY@79909/08/20 09/08/20 09/08/20 History metformin 1,000 mg PO BID@,09/08/20 09/08/20 09/08/20 History oxybutynin chloride 15 mg PO DAILY@159909/08/20 09/08/20 09/07/20 History potassium chloride 20 meq PO BID@,09/08/20 09/08/20 09/08/20 History pregabalin 75 mg PO BID@,09/08/20 09/08/20 09/08/20 History ropinirole 1.5 mg PO BEDTIME@199909/08/20 09/08/20 09/07/20 History spironolactone 25 mg PO DAILY@79909/08/20 09/08/20 09/08/20 History apixaban 5 mg PO BID #60 tab 09/09/20 Unknown Rx metoprolol succinate 50 mg PO DAILY #30 tab 09/09/20 Unknown Rx Allergies Allergy/AdvReac Type Severity Reaction Status Date / Time propoxyphene [From Darvon] Allergy Unknown Unknown Verified 08/25/20 12:40 fluoxetine [From Prozac] AdvReac Severe ADR-Halluci Verified 08/25/20 12:40 nating PFSH Acute PFSH: Medical History Bipolar depression CAD (coronary artery disease) Chronic headache Chronic pain syndrome Due to her weight and other comorbidities I do not think that there is much that pain management would be able to do. They can do localized injections or treatments on specific joints but she would never be a surgical candidate. Constipation, chronic COPD (chronic obstructive pulmonary disease) Diabetes mellitus type 2 in obese Fibromyalgia Generalized anxiety disorder GERD (gastroesophageal reflux disease) Hyperlipemia Hypertension, benign Insomnia Major depressive disorder, recurrent, moderate Mixed stress and urge urinary incontinence NONA (obstructive sleep apnea) Uses CPAP Overactive bladder Panic disorder [episodic paroxysmal anxiety] Paroxysmal atrial fibrillation (~08/2020) Peripheral Vascular Disease RLS (restless legs syndrome) Surgical History H/O thyroidectomy H/O: hysterectomy Hx of cholecystectomy S/P appendectomy Family History Mother , at age 75 Hypertension Father , at age 87 Hypertension Denies family history of Lung disease Stroke Social History Smoking and tobacco status: current every day smoker cigarettes Packs smoked per day: 1 Second hand smoke exposure: No Alcohol intake: never Adopted: No Caregiver/support person: No Lives independently: Yes Housing: Apartment Marital status: / Number of children: 8 Number of grandchildren: 14 Highest education level completed: Some College, No Degree service: No Current occupational status: disabled Pets and animals: Yes Pets & animals: dog(s) History of recent travel: No Leisure activites: art, music, reading and other Sexually active: No Current gender identity: Female Lilliam/Presybeterian: Holiness Special lilliam needs: No Agree to transfusion: Yes Financial difficulty paying for basics: Not Very Hard Female Reproductive History: Para: 8 Spontaneous abortions: No Vitals/I&O/Wt Last Vital Signs Temp 98.2 F 09/21/20 22:52 Pulse 118 H 09/21/20 22:52 Resp 19 H 09/21/20 22:52 BP 136/72 09/21/20 22:52 Pulse Ox 97 09/21/20 22:52 Weight last 48 hrs Weight 111.13 kg Physical Exam Narrative: EXAM NARRATIVE: Patient is currently awake alert oriented. No acute distress. Mood and affect are appropriate. Responses are adequate. Skin is warm and dry. Moist mucous membranes Normal speech Eyes PERRL, extraocular muscles are intact Neck supple. No JVD Lungs are clear to auscultation bilaterally Heart S1, S2, regular Abdomen soft, nontender, bowel sounds are present Extremities trace edema. No cyanosis or calf tenderness bilaterally Neuro examination is nonfocal. Data : 09/21/20 17:58 09/21/20 17:58 Other Labs: Laboratory Results WBC 9.4 10^3/uL (4.0-10.0) 09/21/20 17:58 RBC 4.60 10^6/uL (4.1-5.3) 09/21/20 17:58 Hgb 14.0 g/dL (11.5-15.3) 09/21/20 17:58 Hct 42.8 % (37.0-47.0) 09/21/20 17:58 MCV 93.0 fL (81-99) 09/21/20 17:58 MCH 30.4 pg (28.0-34.0) 09/21/20 17:58 MCHC 32.7 g/dL (30.0-36.0) 09/21/20 17:58 RDW 13.2 % (12.1-15.1) 09/21/20 17:58 Plt Count 224 10^3/cmm (130-400) 09/21/20 17:58 MPV 12.5 fL (7.4-10.4) H 09/21/20 17:58 Neut % (Auto) 56.3 % 09/21/20 17:58 Lymph % (Auto) 35.6 % 09/21/20 17:58 [place] % (Auto) 5.8 % 09/21/20 17:58 Eos % (Auto) 1.7 % 09/21/20 17:58 Baso % (Auto) 0.4 % 09/21/20 17:58 Neut # (Auto) 5.29 10^3/uL (1.8-7.7) 09/21/20 17:58 Lymph # (Auto) 3.4 10^3/uL (0.8-4.8) 09/21/20 17:58 [place] # (Auto) 0.6 10^3/uL (0.2-0.9) 09/21/20 17:58 Eos # (Auto) 0.2 10^3/uL (0.0-0.8) 09/21/20 17:58 Baso # (Auto) 0.0 10^3/uL (0.0-0.1) 09/21/20 17:58 Nucleated RBC % (auto) 0 % 09/21/20 17:58 Nucleated RBCs # 0.0 /100WBC 09/21/20 17:58 D-Dimer 0.40 ug/mIFEU (0-0.59) 09/21/20 17:58 Sodium 141 mmol/L (136-145) 09/21/20 17:58 Potassium 3.8 mmol/L (3.5-5.1) 09/21/20 17:58 Chloride 103 mmol/L (98-107) 09/21/20 17:58 Carbon Dioxide 21 mmol/L (22-29) L 09/21/20 17:58 Anion Gap 20.8 (5-19) H 09/21/20 17:58 BUN 9 mg/dL (8-23) 09/21/20 17:58 Creatinine 0.7 mg/dL (0.5-0.9) 09/21/20 17:58 GFR Calculation 84.5 mL/min (90-130) L 09/21/20 17:58 Glucose 191 mg/dL (65-115) H 09/21/20 17:58 Calculated Osmolality 296 mOsm/kg (285-295) H 09/21/20 17:58 Calcium 8.9 mg/dL (8.5-10.5) 09/21/20 17:58 Total Bilirubin 0.3 mg/dL (0.15-1.2) 09/21/20 17:58 AST 34 U/L (0-32) H 09/21/20 17:58 ALT 26 U/L (0-33) 09/21/20 17:58 Alkaline Phosphatase 123 IU/L (35-105) H 09/21/20 17:58 Troponin T Baseline 16 ng/L (0-10) H 09/21/20 17:58 Troponin T 120 Minute 15.85 ng/L (0-10) H 09/21/20 20:21 Delta Troponin T -0.15 ABS# (0-10) L 09/21/20 20:21 NT-Pro-B Natriuret Pep 1016 pg/mL (0-125) H 09/21/20 17:58 Total Protein 6.9 g/dL (6.6-8.7) 09/21/20 17:58 Albumin 4.4 g/dL (3.5-5.2) 09/21/20 17:58 Globulin 2.5 g/dL (1.3-4.6) 09/21/20 17:58 TSH 0.36 uIU/mL (0.27-4.20) 09/21/20 17:58 Urine Color Yellow (Yellow) 09/21/20 22:05 Urine Appearance Sl cloudy (CLEAR) A 09/21/20 22:05 Urine pH 5 (5-7) 09/21/20 22:05 Ur Specific [place] 1.020 (1.005-1.030) 09/21/20 22:05 Urine Protein Neg (Negative) 09/21/20 22:05 Urine Glucose (UA) Norm (Normal) 09/21/20 22:05 Urine Ketones Negative (Negative) 09/21/20 22:05 Urine Blood Neg (Negative) 09/21/20 22:05 Urine Nitrate Positive (Negative) H 09/21/20 22:05 Urine Bilirubin 1+ (Negative) H 09/21/20 22:05 Urine Urobilinogen Norm mg/dL (Negative) 09/21/20 22:05 Ur Leukocyte Esterase Negative (Negative) 09/21/20 22:05 Urine RBC 0-4 /hpf (0-2) H 09/21/20 22:05 Urine WBC 0-4 /hpf (0-5) H 09/21/20 22:05 Ur Squamous Epith Cells 15-25 /hpf (0-5) H 09/21/20 22:05 Amorphous Sediment Not Reportable 09/21/20 22:05 Urine Bacteria 4+ /hpf (NONE) H 09/21/20 22:05 Hyaline Casts 10-15 /lpf H 09/21/20 22:05 Impressions Chest X-Ray 09/21/20 18:46 IMPRESSION: No acute findings. A&P Additional A&P Information This is a 64-year-old female with past medical history of coronary artery disease, atrial fibrillation, diabetes, hypertension, fibromyalgia who is presenting with complaints of chest pain and palpitations. Chest pain seems to be cardiac in nature, improved with nitroglycerin. Being admitted for observation to [facility] with telemetry. We will continue monitoring EKG and troponin. We will check her fasting lipids in the morning. Will request cardiology evaluation in the morning. Probably will need addit ional testing. This is her second visit recently for the same issue. We will continue dual antiplatelet therapy, beta-richy,,cholesterol medication. Atrial fibrillation. Mild RVR probably due to anxiety and pain. We will continue her home medications and close monitoring. Will use as needed medications if he does not improve shortly. Hypertension. Currently well controlled. Continue home medications. Diabetes. Will hold home Metformin. Will add insulin sliding scale. CODE STATUS. She wants to be full code. The plan of care was discussed with the patient. She verbalized understanding and agreement. 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
--- NOTE | 2020-09-21 23:49 | W.ED.CHESTPA ---
HPI - Chest Pain General: Chief Complaint: Chest Pain Stated Complaint: CHEST PAIN Time Seen by Provider: 09/21/20 18:51 History of Present Illness: HPI narrative: The patient is a 65-year-old female with past medical history COPD, diabetes, paroxysmal atrial fib. She comes to the ER complaining of left-sided chest pain that is typical in nature. She says at home she took 2 nitroglycerin which did relieve some of the chest pain but it is very unusual for her to have chest pain that is not relieved by 1 nitroglycerin so she came to the ED today for evaluation. She was admitted recently for similar chest pain and got an echocardiogram which was normal. She did not have a stress test at that time. Her heart rate is 115 sinus tachycardia on arrival. She says after laying in bed the chest pain did resolve but she is scared because she has multiple episodes of chest pain a day and today's took 2 nitroglycerin to have an effect. She takes aspirin 325 daily MD complaint: chest pain Onset (ago): hour(s) (2) Timing of current episode: episodic Onset: during rest Pain location: left chest Pain radiation: none Severity: moderate Quality: sharp Relieving factors: nitroglycerin Exacerbating factors: nothing Associated symptoms: Reports no associated symptoms; Deny abdominal pain, dyspnea or palpitations Review of Systems General: Reports: 10 or more systems reviewed and unremarkable except in HPI and below Const: Denies: fatigue Eyes: Denies: change in vision, blurry vision or eye redness ENMT: Denies: throat pain, swelling of lips/tongue, ear or mastoid pain or nasal congestion Card: Denies: chest pain (Chest pain resolved just as I saw her.), palpitations, irregular heart rhythm, edema, dyspnea on exertion or orthopnea Resp: Denies: dyspnea, productive cough or non-productive cough GI: Denies: abdominal pain, diarrhea or GI cramping : Denies: flank pain, difficulty voiding, urinary frequency or urinary urgency Musc: Denies: neck pain, back pain, extremity pain, joint pain, joint redness, limited range of motion or muscle weakness Skin/Breast: Denies: rash, pruritus, erythema, skin pain or skin tenderness Neuro: Denies: headache(s), numbness in extremities, weakness in extremities, sensory changes, difficulty walking, dizziness, confusion or Slurred speech present Psych: Denies: anxiety or depression Endo: Denies: polyuria All/Imm: Denies: urticaria, throat swelling or tongue swelling PFSH ED PFSH: Medical History Bipolar depression CAD (coronary artery disease) Chronic headache Chronic pain syndrome Due to her weight and other comorbidities I do not think that there is much that pain management would be able to do. They can do localized injections or treatments on specific joints but she would never be a surgical candidate. Constipation, chronic COPD (chronic obstructive pulmonary disease) Diabetes mellitus type 2 in obese Fibromyalgia Generalized anxiety disorder GERD (gastroesophageal reflux disease) Hyperlipemia Hypertension, benign Insomnia Major depressive disorder, recurrent, moderate Mixed stress and urge urinary incontinence NONA (obstructive sleep apnea) Uses CPAP Overactive bladder Panic disorder [episodic paroxysmal anxiety] Paroxysmal atrial fibrillation (~08/2020) Peripheral Vascular Disease RLS (restless legs syndrome) Surgical History H/O thyroidectomy H/O: hysterectomy Hx of cholecystectomy S/P appendectomy Family History Mother , at age 75 Hypertension Father , at age 87 Hypertension Denies family history of Lung disease Stroke Social History Smoking and tobacco status: current every day smoker cigarettes Packs smoked per day: 1 Second hand smoke exposure: No Alcohol intake: never Adopted: No Caregiver/support person: No Lives independently: Yes Housing: Apartment Marital status: / Number of children: 8 Number of grandchildren: 14 Highest education level completed: Some College, No Degree service: No Current occupational status: disabled Pets and animals: Yes Pets & animals: dog(s) History of recent travel: No Leisure activites: art, music, reading and other Sexually active: No Current gender identity: Female Lilliam/Baptist: Taoist Special lilliam needs: No Agree to transfusion: Yes Financial difficulty paying for basics: Not Very Hard Female Reproductive History: Para: 8 Spontaneous abortions: No Physical Exam Const: COMMON NORMALS: no acute distress, average body habitus, patient oriented x3, no limitations, healthy appearing, alert and well nourished GENERAL APPEARANCE: cooperative, comfortable, well kempt and well developed ORIENTATION/CONSCIOUSNESS: Yes awake, Yes oriented to person, Yes oriented to place and Yes oriented to time HENMT: COMMON NORMALS: normocephalic, external ears normal and Normal external nose present HEAD & SCALP: normal to inspection and normocephalic NOSE: Normal external nose present EXTERNAL EAR: Yes external ears normal MOUTH: Normal oral and palatal mucosa present THROAT: posterior oropharynx normal Eye: COMMON NORMALS: Equal, round and reactive pupils present and EOMs intact bilaterally GENERAL EYE: appearance normal, both eyes and all related structures PUPIL: Yes Equal, round and reactive pupils present Neck/C-Spine: COMMON NORMALS: full ROM, no lymphadenopathy, no meningeal signs and no JVD GENERAL: Yes normal visual inspection Lymph: LYMPHATIC: no lymphadenopathy noted Chest: COMMONS NORMALS: normal inspection of the chest and normal palpation of entire chest wall Resp: COMMON NORMALS: normal respiratory effort, No retractions, No use of accessory muscles, clear to auscultation bilaterally and percussion normal EFFORT & INSPECTION: Yes able to speak in complete sentences AUSCULTATION: clear to auscultation bilaterally PERCUSSION: percussion normal Cardio: COMMON NORMALS: no JVD, regular rate, regular rhythm, S1 normal heart sound present, S2 normal heart sound present and Peripheral pulses 2+ throughout RATE: regular rate RHYTHM: regular rhythm HEART SOUNDS: S1 normal heart sound present and S2 normal heart sound present PERIPHERAL PULSES: Peripheral pulses 2+ throughout GI: COMMON NORMALS: Normal to inspection, nondistended, normoactive bowel sounds present, Soft to palpation, non-tender and no masses INSPECTION: Yes normal to inspection PALPATION: Yes Soft to palpation : COMMON NORMALS: Yes no CVA tenderness BLADDER/KIDNEY EXAM: Yes no CVA tenderness Back/Pelvis: COMMON NORMALS: no CVA tenderness, thoracic and lumbar spine normal to inspection, no thoracic nor lumbar tenderness and thoraco-lumbar ROM normal Extremity: COMMON NORMALS: normal to inspection, full ROM, capillary refill normal, no joint enlargement and no pedal edema GENERAL: Yes normal exam except as noted Neuro: COMMON NORMALS: patient oriented x3, CN's II-XII intact bilaterally, moves all extremities, no focal motor deficits, no sensory deficits noted and gait normal SENSORIUM/ORIENTATION: Yes alert, Yes oriented to person, Yes oriented to place and Yes oriented to time MENINGEAL SIGNS: Yes no meningeal signs Psych: COMMON NORMALS: mental status grossly normal, Normal thought process present, cooperative, normal affect and speech normal APPEARANCE: Yes well kempt ATTITUDE: Yes calm SPEECH: Yes normal speech THOUGHT PROCESS: Normal thought process present Skin: COMMON NORMALS: no rashes or lesions noted GENERAL SKIN EXAM: no rashes or lesions noted Course Vital Signs: Vital signs: Vital Signs Temperature 98.2 F 09/21/20 22:52 Pulse Rate 118 H 09/21/20 22:52 Respiratory Rate 19 H 09/21/20 22:52 Blood Pressure 136/72 09/21/20 22:52 Pulse Oximetry 97 09/21/20 22:52 MDM - Chest Pain MDM Narrative: Medical decision making narrative: Patient comes to the ER having an episode of chest pain at home that required 2 nitroglycerin. She has been having multiple episodes of chest pain daily. She was recently admitted and had an echocardiogram which was normal but no stress test. She also has paroxysmal A. fib. She has been sinus tachycardia 1 10-1 15 on the monitor. Troponin normal x2. EKG did show some possible ST depressions though no elevations. Discussed with Dr. Weeks who accepts for observation. Lab Data: Labs: Lab Results 09/21/20 09/21/20 09/21/20 Range/Units 17:58 17:58 17:58 WBC 9.4 (4.0-10.0) 10^3/ uL RBC 4.60 (4.1-5.3) 10^6/u L Hgb 14.0 (11.5-15.3) g/dL Hct 42.8 (37.0-47.0) % MCV 93.0 (81-99) fL MCH 30.4 (28.0-34.0) pg MCHC 32.7 (30.0-36.0) g/dL RDW 13.2 (12.1-15.1) % Plt Count 224 (130-400) 10^3/c mm MPV 12.5 H (7.4-10.4) fL Neut % (Auto) 56.3 % Lymph % (Auto) 35.6 % [place] % (Auto) 5.8 % Eos % (Auto) 1.7 % Baso % (Auto) 0.4 % Neut # (Auto) 5.29 (1.8-7.7) 10^3/u L Lymph # (Auto) 3.4 (0.8-4.8) 10^3/u L [place] # (Auto) 0.6 (0.2-0.9) 10^3/u L Eos # (Auto) 0.2 (0.0-0.8) 10^3/u L Baso # (Auto) 0.0 (0.0-0.1) 10^3/u L Nucleated RBC % (a uto) 0 % Nucleated RBCs # 0.0 /100WBC D-Dimer 0.40 (0-0.59) ug/mIFE U Sodium 141 (136-145) mmol/L Potassium 3.8 (3.5-5.1) mmol/L Chloride 103 (98-107) mmol/L Carbon Dioxide 21 L (22-29) mmol/L Anion Gap 20.8 H (5-19) BUN 9 (8-23) mg/dL Creatinine 0.7 (0.5-0.9) mg/dL GFR Calculation 84.5 L (90-130) mL/min Glucose 191 H (65-115) mg/dL Calculated Osmolal ity 296 H (285-295) mOsm/k g Calcium 8.9 (8.5-10.5) mg/dL Total Bilirubin 0.3 (0.15-1.2) mg/dL AST 34 H (0-32) U/L ALT 26 (0-33) U/L Alkaline Phosphata se 123 H (35-105) IU/L Troponin T Baselin e (0-10) ng/L Troponin T 120 Min [place] (0-10) ng/L Delta Troponin T (0-10) ABS# NT-Pro-B Natriuret Pep 1016 H (0-125) pg/mL Total Protein 6.9 (6.6-8.7) g/dL Albumin 4.4 (3.5-5.2) g/dL Globulin 2.5 (1.3-4.6) g/dL TSH (0.27-4.20) uIU/ mL Urine Color (Yellow) Urine Appearance (CLEAR) Urine pH (5-7) Ur Specific [place] y (1.005-1.030) Urine Protein (Negative) Urine Glucose (UA) (Normal) Urine Ketones (Negative) Urine Blood (Negative) Urine Nitrate (Negative) Urine Bilirubin (Negative) Urine Urobilinogen (Negative) mg/dL Ur Leukocyte Yvonne ase (Negative) Urine RBC (0-2) /hpf Urine WBC (0-5) /hpf Ur Squamous Epith Cells (0-5) /hpf Amorphous Sediment Urine Bacteria (NONE) /hpf Hyaline Casts /lpf 09/21/20 09/21/20 09/21/20 Range/Units 17:58 17:58 20:21 WBC (4.0-10.0) 10^3/ uL RBC (4.1-5.3) 10^6/u L Hgb (11.5-15.3) g/dL Hct (37.0-47.0) % MCV (81-99) fL MCH (28.0-34.0) pg MCHC (30.0-36.0) g/dL RDW (12.1-15.1) % Plt Count (130-400) 10^3/c mm MPV (7.4-10.4) fL Neut % (Auto) % Lymph % (Auto) % [place] % (Auto) % Eos % (Auto) % Baso % (Auto) % Neut # (Auto) (1.8-7.7) 10^3/u L Lymph # (Auto) (0.8-4.8) 10^3/u L [place] # (Auto) (0.2-0.9) 10^3/u L Eos # (Auto) (0.0-0.8) 10^3/u L Baso # (Auto) (0.0-0.1) 10^3/u L Nucleated RBC % (a uto) % Nucleated RBCs # /100WBC D-Dimer (0-0.59) ug/mIFE U Sodium (136-145) mmol/L Potassium (3.5-5.1) mmol/L Chloride (98-107) mmol/L Carbon Dioxide (22-29) mmol/L Anion Gap (5-19) BUN (8-23) mg/dL Creatinine (0.5-0.9) mg/dL GFR Calculation (90-130) mL/min Glucose (65-115) mg/dL Calculated Osmolal ity (285-295) mOsm/k g Calcium (8.5-10.5) mg/dL Total Bilirubin (0.15-1.2) mg/dL AST (0-32) U/L ALT (0-33) U/L Alkaline Phosphata se (35-105) IU/L Troponin T Baselin e 16 H (0-10) ng/L Troponin T 120 Min [place] 15.85 H (0-10) ng/L Delta Troponin T -0.15 L (0-10) ABS# NT-Pro-B Natriuret Pep (0-125) pg/mL Total Protein (6.6-8.7) g/dL Albumin (3.5-5.2) g/dL Globulin (1.3-4.6) g/dL TSH 0.36 (0.27-4.20) uIU/ mL Urine Color (Yellow) Urine Appearance (CLEAR) Urine pH (5-7) Ur Specific [place] (1.005-1.030) Urine Protein (Negative) Urine Glucose (UA) (Normal) Urine Ketones (Negative) Urine Blood (Negative) Urine Nitrate (Negative) Urine Bilirubin (Negative) Urine Urobilinogen (Negative) mg/dL Ur Leukocyte Yvonne ase (Negative) Urine RBC (0-2) /hpf Urine WBC (0-5) /hpf Ur Squamous Epith Cells (0-5) /hpf Amorphous Sediment Urine Bacteria (NONE) /hpf Hyaline Casts /lpf 05/23/21 Range/Units 22:05 WBC (4.0-10.0) 10^3/ uL RBC (4.1-5.3) 10^6/u L Hgb (11.5-15.3) g/dL Hct (37.0-47.0) % MCV (81-99) fL MCH (28.0-34.0) pg MCHC (30.0-36.0) g/dL RDW (12.1-15.1) % Plt Count (130-400) 10^3/c mm MPV (7.4-10.4) fL Neut % (Auto) % Lymph % (Auto) % [place] % (Auto) % Eos % (Auto) % Baso % (Auto) % Neut # (Auto) (1.8-7.7) 10^3/u L Lymph # (Auto) (0.8-4.8) 10^3/u L [place] # (Auto) (0.2-0.9) 10^3/u L Eos # (Auto) (0.0-0.8) 10^3/u L Baso # (Auto) (0.0-0.1) 10^3/u L Nucleated RBC % (a uto) % Nucleated RBCs # /100WBC D-Dimer (0-0.59) ug/mIFE U Sodium (136-145) mmol/L Potassium (3.5-5.1) mmol/L Chloride (98-107) mmol/L Carbon Dioxide (22-29) mmol/L Anion Gap (5-19) BUN (8-23) mg/dL Creatinine (0.5-0.9) mg/dL GFR Calculation (90-130) mL/min Glucose (65-115) mg/dL Calculated Osmolal ity (285-295) mOsm/k g Calcium (8.5-10.5) mg/dL Total Bilirubin (0.15-1.2) mg/dL AST (0-32) U/L ALT (0-33) U/L Alkaline Phosphata se (35-105) IU/L Troponin T Baselin e (0-10) ng/L Troponin T 120 Min [place] (0-10) ng/L Delta Troponin T (0-10) ABS# NT-Pro-B Natriuret Pep (0-125) pg/mL Total Protein (6.6-8.7) g/dL Albumin (3.5-5.2) g/dL Globulin (1.3-4.6) g/dL TSH (0.27-4.20) uIU/ mL Urine Color Yellow (Yellow) Urine Appearance Sl cloudy A (CLEAR) Urine pH 5 (5-7) Ur Specific [place] y 1.020 (1.005-1.030) Urine Protein Neg (Negative) Urine Glucose (UA) Norm (Normal) Urine Ketones Negative (Negative) Urine Blood Neg (Negative) Urine Nitrate Positive H (Negative) Urine Bilirubin 1+ H (Negative) Urine Urobilinogen Norm (Negative) mg/dL Ur Leukocyte Yvonne ase Negative (Negative) Urine RBC 0-4 H (0-2) /hpf Urine WBC 0-4 H (0-5) /hpf Ur Squamous Epith Cells 15-25 H (0-5) /hpf Amorphous Sediment Not Reportable Urine Bacteria 4+ H (NONE) /hpf Hyaline Casts 10-15 H /lpf Discharge Plan Discharge Patient Disposition: Placed in Observation Clinical Impression: Chest pain Coding Level of Care Code 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
[2020-09-22] VITALS (15 sets, daily range): BP systolic 87–125; BP diastolic 59–90; PULSE 76–117; RESP 8–18; TEMP 36.4–36.9; O2SAT 86–98
--- NOTE | 2020-09-22 00:46 | ECG_ITS ---
[facility] Test Date: 2020-09-22 Pat Name: Lin Henao Department: Room: 250 Gender: Female Solar Tech: : 1955 Requested By: Urbano Copeland Order Number: [id number] Tylor MD: Kevon Ge M.D. Measurements Intervals [place] Rate: 115 P: [place]: QRS: -52 QRSD: 99 T: -15 QT: 363 QTc: 504 Interpretive Statements ATRIAL FLUTTER/TACHYCARDIA WITH RAPID VENTRICULAR RESPONSE PATTERN CONSISTENT WITH PULMONARY DISEASE LEFT ANTERIOR FASCICULAR BLOCK [QRS AXIS <= -45, QR IN I, RS IN II] ST DEPRESSION, CONSIDER SUBENDOCARDIAL INJURY [0.1+ mV ST DEPRESSION] Compared to ECG 09/21/2020 20:51:19 No significant changes Electronically Signed On 09-22-2020 16:21:52 CDT by Kevon Ge M.D. [id number]
[2020-09-22 01:03] LABS: Troponin 5 6HR 16.79 ng/L (0-10); Troponin 5 6HR Delta 0.79 ng/L (0-12)
[2020-09-22 05:58] LABS: Chol HDL Ratio 5.29 mg/dL (0.0-4.40); Cholesterol 148 mg/dL (0-200); HDL Cholesterol 28 mg/dL (60-100); LDL Cholesterol Calculated 90 mg/dL (50-129); LDL HDL Ratio 3.21 RATIO (0.00-3.22); Triglycerides 148 mg/dL (0-150)
[2020-09-22 06:43] LABS: Glucose Point of Care 132 mg/dL (70-110)
[2020-09-22] MEDS: BuSPIRONE 10 mg Tablet 15 MG PO ×2 (08:06→18:14)
[2020-09-22] MEDS: buPROPion XL (24 HR) 300 mg Tablet PO (08:06)
[2020-09-22] MEDS: docusate sodium 100 mg Capsule PO ×2 (08:23→16:19)
[2020-09-22] MEDS: aspirin 81 mg EC Tablet PO (08:23)
[2020-09-22] MEDS: metoprolol succinate ER (24 HR) 50 mg Tablet PO (08:23)
[2020-09-22] MEDS: spironolactone 25 mg Tablet PO (08:23)
[2020-09-22] MEDS: topiramate 100 mg Tablet PO ×3 (08:23→20:54)
[2020-09-22] MEDS: FUROsemide 40 mg Tablet PO ×2 (08:23→20:55)
[2020-09-22] MEDS: clopidogrel 75 mg Tablet PO (08:23)
[2020-09-22] MEDS: famotidine 20 mg Tablet PO ×2 (08:23→20:55)
[2020-09-22] MEDS: losartan 50 mg Tablet 100 MG PO (08:23)
[2020-09-22] MEDS: apixaban 5 mg Tablet PO ×2 (08:24→18:14)
[2020-09-22] MEDS: potassium chloride ER 20 mEq Tablet PO ×2 (08:24→20:54)
[2020-09-22] MEDS: pregabalin 75 mg Capsule PO ×2 (08:24→20:54)
--- NOTE | 2020-09-22 10:31 | PC.CHAP ---
Pastoral Care Encounter/Spiritual Assessment Type of Contact [] Declined bisque cleaner visit [] Patient/Family/Request visit [] Outpatient visit [] Follow-up visit [] Physician referral [] Code/Alert [] Routine visit [] Staff referral [] Actively dying [] Patient sleeping [] Family support [] [] Out of room [] Palliative care [] [] Receiving care in room [] Pre-surgical visit [] Trauma [] Long length of stay [] ICU visit [] Other: Relational/Emotional Strength [] Patient feels connected with others/family/visitors/staff [] Distress [] Loneliness/isolation [] Abandonment Spirituality of Patient [x] Person of Lilliam [x] Attends Sikh of their Lilliam [x] Believes in Prayer [] Reads Bible or Orthodox materials [] There are Spiritual issues to be addressed Personnel Scheduler Interventions [x] Prayer [] Active listening [] Non-anxious presence [] Spiritual/emotional support [] Crisis/trauma care [] Spiritual counseling [] Bereavement support [] Provided bereavement packet [] Provided Bible/devotional materials [] Provided toy/stuffed animal, coloring book to patient or family member [] Provided Communion [] Anointing/[place] [] Salvation [] Completed spiritual assessment [] Other: Impact on Illness or Injury [] Angry [] Fearful [] Anxious [] Often cries [] Exhaustion [] Unable to work [] Unable to attend synagogue [] Unable to walk/stand [] Unable to read [] Unable to drive [] Unable to eat/drink [] Unable to sleep [] Unable to be with family [] Patient intubated [] Other: Summary scared Time spent with patient 10min
[2020-09-22 11:52] LABS: Glucose Point of Care 122 mg/dL (70-110)
--- NOTE | 2020-09-22 13:09 | P.PN_ITS ---
Subjective Subjective: Interval history: Patient was seen and examined this morning, she was complaining of, progressively worsening, substernal chest pain, going on for couple of months, last night pain was very severe 9 out of 10, crushing, relieved with nitro. Patient is also complaining of shortness of breath with minimal activity. Vitals/I&O/Wt Last Vital Signs Temp 98.0 F 09/22/20 11:28 Pulse 113 H 09/22/20 11:28 Resp 18 09/22/20 11:28 BP 105/68 09/22/20 11:28 Pulse Ox 98 09/22/20 11:28 09/21/20 09/22/20 09/22/20 22:59 06:59 14:59 Intake Total 0 / 0 Output Total 300 / 300 Balance -300 / -300 0 / 0 Weight last 48 hrs Weight 111.13 kg Physical Exam Const: COMMON NORMALS: patient oriented x3 HENMT: COMMON NORMALS: normocephalic and atraumatic HEAD & SCALP: normocephalic and atraumatic Chest: CHEST: Yes Symmetrical chest wall rise Resp: COMMON NORMALS: clear to auscultation bilaterally EFFORT & INSPECTION: Yes symmetric chest movement AUSCULTATION: clear to auscultation bilaterally Cardio: COMMON NORMALS: regular rate, regular rhythm, S1 normal heart sound present, S2 normal heart sound present, No gallops present (Cardio), No murmurs present (Cardio), No rub (Cardio) and Peripheral pulses 2+ throughout RATE: regular rate RHYTHM: regular rhythm HEART SOUNDS: S1 normal heart sound present and S2 normal heart sound present PERIPHERAL PULSES: Peripheral pulses 2+ throughout GI: COMMON NORMALS: Normal to inspection, nondistended, normoactive bowel sounds present, Soft to palpation, non-tender, No hepatosplenomegaly present and no masses AUSCULTATION: Yes normoactive bowel sounds PALPATION: Yes Soft to palpation and Yes No hepatosplenomegaly present RECTAL EXAM: deferred Extremity: COMMON NORMALS: no clubbing, cyanosis or edema and no pedal edema Neuro: COMMON NORMALS: patient oriented x3 Data : 09/21/20 17:58 09/21/20 17:58 A&P Additional A&P Information This is a 64-year-old female with past medical history of coronary artery disease, atrial fibrillation, diabetes, hypertension, fibromyalgia who is presenting with complaints of chest pain and palpitations. Chest pain seems to be cardiac in nature, improved with nitroglycerin. Being admitted for observation to [facility] with telemetry. We will continue monitoring EKG and troponin. We will check her fasting lipids in the morning. Will request cardiology evaluation in the morning. Probably will need additional testing. This is her second visit recently for the same issue. We will continue dual antiplatelet therapy, Metoprolol Succinate 50 changed to Metoprolol Tartrate 50 MG PO BID , cholesterol medication. Stress Test Am Atrial fibrillation. Mild RVR probably due to anxiety and pain. We will continue her home medications and close monitoring. Will use as needed medications if he does not improve shortly. Hypertension. Currently well controlled. Continue home medications. Diabetes. Will hold home Metformin. Will add insulin sliding scale. CODE STATUS. She wants to be full code. The plan of care was discussed with the patient. She verbalized understanding and agreement. Attestations Medical Necessity Statement*: Patient needs to be in hospital for the management of Chest pain. Coding Level of Care Code Acute Clinical Pharmacy Coordinator for Urvashi Shaw
[2020-09-22 17:20] LABS: Glucose Point of Care 141 mg/dL (70-110)
--- NOTE | 2020-09-22 18:18 | PC.RESP ---
Smoking Cessation and Pulmonary Rehab information sent to patient.
[2020-09-22] MEDS: ropinirole 1 mg Tablet 1.5 MG PO (20:54)
[2020-09-22] MEDS: duloxetine 60 mg Capsule PO (20:54)
[2020-09-22] MEDS: metoprolol tartrate 50 mg Tablet PO (20:55)
[2020-09-22] MEDS: gemfibrozil 600 mg Tablet PO (20:55)
[2020-09-22 21:13] LABS: Glucose Point of Care 157 mg/dL (70-110)
[2020-09-22 22:20] LABS: Glucose Point of Care 165 mg/dL (70-110)
[2020-09-23] VITALS (10 sets, daily range): BP systolic 94–128; BP diastolic 51–84; PULSE 68–95; RESP 16–18; TEMP 36.4–37.1; O2SAT 94–98
[2020-09-23 06:04] LABS: Basophils # 0.1 10^3/uL (0.0-0.1); Basophils % 0.7 %; Eosinophils # 0.3 10^3/uL (0.0-0.8); Eosinophils % 2.8 %; Hemoglobin 12.7 g/dL (11.5-15.3); Lymphocytes # 3.4 10^3/uL (0.8-4.8); Lymphocytes % 36.7 %; Mean Corpuscular Hemoglobin 30.2 pg (28.0-34.0); Mean Corpuscular Volume 97.6 fL (81-99); Mean Platelet Volume 12.2 fL (7.4-10.4); Monocytes # 0.6 10^3/uL (0.2-0.9); Monocytes % 6.5 %; Neutrophils # 4.89 10^3/uL (1.8-7.7); Nucleated Red Blood Cells % 0 %; Platelet Count 202 10^3/cmm (130-400); Red Cell Distribution Width 13.1 % (12.1-15.1); White Blood Count 9.2 10^3/uL (4.0-10.0)
--- NOTE | 2020-09-23 06:25 | NMCV_ITS ---
NM tayler perf SPECT r/s* [id number] Lin Henao Age: 65 Gender: F : 1955 Exam Date: 09/23/2020 07:13 Ordering Phys: Tobi Tolentino MD Technologist: BEV Gil Exam Location: [facility] Indications: CHEST PAIN STRESS TEST Please see separate stress test report in [facility]any for full findings IMAGE PROTOCOL Rest/Stress 1 Lexiscan Day Radiopharmaceutical Dose (mCi) Administration Site Administered by Rest: Tc-99m 11.0 IV BEV Savage Sestamibi Stress:Tc-99m 33.0 IV BEV Savage Sestamibi Rest: 23-Sep-2020 60 Discovery 630 Stress: 23-Sep-2020 30 Discovery 630 0.4mg Lexiscan. Images obtained in supine and prone position. SPECT RESULTS Technical Quality: Excellent Raw Data Analysis: Normal Image Corrections: No attenuation or motion correction applied Summed Stress Score: 5 Summed Rest Score: 4 Summed Difference Score: 2 PERFUSION FINDINGS There is a partially reversible apical and apical inferior wall perfusion defect. It likely represents prior infarct with small area of cesar-infarct ischemia. FUNCTIONAL RESULTS (calculated via Gated SPECT) Stress Image LV EF (%): 68 Stress EDV (mL):73 TID: 1.1 Stress ESV (mL):23 FUNCTIONAL FINDINGS: There is normal left ventricular systolic function. IMPRESSIONS 1. Abnormal myocardial perfusion imaging demonstrating an infarct in the apical, apical lateral and apical inferior forbes with small area of cesar- infarct ischemia 2. LV systolic function is normal Kevon Ge MD (Electronically Signed) Final Date: 23 Sep 2020 10:42 S
[2020-09-23 06:32] LABS: Anion Gap 12.8 (5-19); Blood Urea Nitrogen 11 mg/dL (8-23); Calcium 8.4 mg/dL (8.5-10.5); Carbon Dioxide 23 mmol/L (22-29); Chloride 108 mmol/L (98-107); Glucose 166 mg/dL (65-115); Magnesium 2.2 mg/dL (1.7-2.3); Osmolality Calculated 291 mOsm/kg (285-295); Potassium 4.8 mmol/L (3.5-5.1); Sodium 139 mmol/L (136-145); Thyroid Stimulating Hormone 0.15 uIU/mL (0.27-4.20)
[2020-09-23 06:38] LABS: Glucose Point of Care 183 mg/dL (70-110)
--- NOTE | 2020-09-23 08:00 | ECG_ITS ---
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 Interpretive Statements NAME OF STUDY: LEXISCAN SESTAMIBI STRESS TEST INDICATION: [Chest Pain, ] Procedure: At the baseline, the blood pressure was 107/74 mmHg with a heart rate of 86 bpm. The electrocardiogram showed atrial fobrillation, normal axis with normal ST and T's. The Lexiscan was infused over a period of 20 seconds. A total of 0.4 mg of Lexiscan was infused. The stress phase was continued for a total of 5 minutes. Heart rate was at the end of stress phase was 91bpm and a blood pressure of 113/76 mmHg. The EKG at the peak infusion revealed atrial fibrillation with no significant ST-T wave changes. Sestamibi was injected 20 seconds after the Lexiscan infusion. Blood pressure at the end of recovery phase was 115/70 mmHg with a heart rate of 88 bpm. Conclusion: 1. Normal EKG response to Lexiscan infusion 2. No Lexiscan induced chest pain or cardiac arrhythmia. 3. Normal blood pressure and heart rate response. 4. Sestamibi/sestamibi perfusion scan pending; see separate report. Electronically Signed On 10-08-2020 17:02:42 CDT by Kevon Ge M.D. [id number]
[2020-09-23] MEDS: regadenoson 0.4 Mg/5 ml Syringe IVP (08:05)
--- NOTE | 2020-09-23 08:13 | PM.PN ---
Vitals/I&O/Wt Last Vital Signs Temp 97.6 F 09/23/20 03:44 Pulse 77 09/23/20 06:00 Resp 18 09/23/20 03:44 BP 94/59 09/23/20 03:44 Pulse Ox 97 09/23/20 03:44 09/22/20 09/23/20 09/23/20 22:59 06:59 14:59 Intake Total 720 / 720 Output Total 300 / 300 Balance 420 / 420 Weight last 48 hrs Weight 111.13 kg Data : 09/23/20 05:21 09/23/20 05:21 Coding Level of Care Code Acute Child Welfare Worker for Chg Valeria
--- NOTE | 2020-09-23 09:01 | PC.NURSE ---
AT APPROX. 0725 PT LEFT FOR HER STRESS TEST.
--- NOTE | 2020-09-23 10:28 | PC.CHAP ---
Pastoral Care Encounter/Spiritual Assessment Type of Contact [] Declined deck lid fitter visit [] Patient/Family/Request visit [] Outpatient visit [] Follow-up visit [] Physician referral [] Code/Alert [x] Routine visit [] Staff referral [] Actively dying [] Patient sleeping [] Family support [] [x] Out of room [] Palliative care [] [] Receiving care in room [] Pre-surgical visit [] Trauma [] Long length of stay [] ICU visit [] Other: Relational/Emotional Strength [] Patient feels connected with others/family/visitors/staff [] Distress [] Loneliness/isolation [] Abandonment Spirituality of Patient [] Person of Lilliam [] Attends Druze of their Lilliam [] Believes in Prayer [] Reads Bible or Anabaptist materials [] There are Spiritual issues to be addressed Hide Mill Man Interventions [] Prayer [] Active listening [] Non-anxious presence [] Spiritual/emotional support [] Crisis/trauma care [] Spiritual counseling [] Bereavement support [] Provided bereavement packet [] Provided Bible/devotional materials [] Provided toy/stuffed animal, coloring book to patient or family member [] Provided Communion [] Anointing/Center [place] [] Salvation [] Completed spiritual assessment [] Other: Impact on Illness or Injury [] Angry [] Fearful [] Anxious [] Often cries [] Exhaustion [] Unable to work [] Unable to attend temple [] Unable to walk/stand [] Unable to read [] Unable to drive [] Unable to eat/drink [] Unable to sleep [] Unable to be with family [] Patient intubated [] Other: Summary Time spent with patient
[2020-09-23 10:35] LABS: Free T4 Free Thyroxine 1.05 ng/dL (0.82-1.77); Thyroid Stimulating Hormone 0.15 uIU/mL (0.27-4.20)
[2020-09-23] MEDS: pregabalin 75 mg Capsule PO (10:39)
[2020-09-23] MEDS: famotidine 20 mg Tablet PO (10:39)
[2020-09-23] MEDS: potassium chloride ER 20 mEq Tablet PO (10:39)
[2020-09-23] MEDS: clopidogrel 75 mg Tablet PO (10:40)
[2020-09-23] MEDS: aspirin 81 mg EC Tablet PO (10:40)
[2020-09-23] MEDS: apixaban 5 mg Tablet PO (10:40)
[2020-09-23] MEDS: FUROsemide 40 mg Tablet PO (10:40)
[2020-09-23] MEDS: docusate sodium 100 mg Capsule PO (10:40)
[2020-09-23] MEDS: topiramate 100 mg Tablet PO (10:41)
[2020-09-23] MEDS: metoprolol tartrate 50 mg Tablet PO (10:41)
[2020-09-23] MEDS: BuSPIRONE 10 mg Tablet 15 MG PO (10:42)
[2020-09-23] MEDS: losartan 50 mg Tablet 100 MG PO (10:44)
[2020-09-23 11:00] LABS: Glucose Point of Care 202 mg/dL (70-110)
[2020-09-23] MEDS: spironolactone 25 mg Tablet PO (11:05)
[2020-09-23] MEDS: buPROPion XL (24 HR) 300 mg Tablet PO (11:05)
--- NOTE | 2020-09-23 13:16 | PM.CONSULT ---
Providers/Reason For Consult Consulting Physican/Specialty*: Kevon Ge MD/ Cardiology Reason for Consult*: Chest pain/ abnormal stress test Requesting Physcian: Dr Tolentino Attending Physician: Tobi Tolentino MD Primary Care Provider: Kristine Rodriguez MD History of Present Illness History of Present Illness 65 year old female with past medical history of atrial fibrillation, hypertension, peripheral artery disease, diabetes, fibromyalgia who presented to hospital with chest pain. Patient's chest pain was substernal and sharp in nature. No radiation. She has been having chest discomfort for several months. However she was more concerned because she needed to take 2 doses of nitroglycerin to relieve the pain. She underwent nuclear stress test that showed an infarct in the apical, apical lateral and apical inferior forbes with small area of cesar-infarct ischemia. Cardiology was consulted to assess patient for coronary angiography. Troponins did not go up. EKG does not show ischemic changes.Recent echo had showed normal LV systolic function Review of Systems General: Reports: 10 or more systems reviewed and unremarkable except in HPI and below Const: Denies: fatigue Eyes: Denies: change in vision, blurry vision or eye redness ENMT: Denies: throat pain, swelling of lips/tongue, ear or mastoid pain or nasal congestion Card: Reports: chest pain; Denies: palpitations, irregular heart rhythm, edema, dyspnea on exertion or orthopnea Resp: Denies: dyspnea, productive cough or non-productive cough GI: Denies: abdominal pain, diarrhea or GI cramping : Denies: flank pain, difficulty voiding, urinary frequency or urinary urgency Musc: Denies: neck pain, back pain, extremity pain, joint pain, joint redness, limited range of motion or muscle weakness Skin/Breast: Denies: rash, pruritus, erythema, skin pain or skin tenderness Neuro: Denies: headache(s), numbness in extremities, weakness in extremities, sensory changes, difficulty walking, dizziness, confusion or Slurred speech present Psych: Denies: anxiety or depression Endo: Denies: polyuria All/Imm: Denies: urticaria, throat swelling or tongue swelling Meds/Allergies Home Medications and Allergies Home Medications Medication Instructions Recorded Confirmed Last Taken Type topiramate 100 mg tablet 100 mg PO TID tab 05/03/19 09/24/20 09/08/20 History nitroglycerin 0.4 mg sublingual 0.4 mg SUBLINGUAL Q5M PRN 05/23/19 09/24/20 Unknown History tablet hydroxyzine pamoate 25 mg capsule 25 mg PO Q6H PRN #120 cap 12/12/19 09/24/20 09/08/20 Rx amitriptyline 100 mg tablet 100 mg PO DAILY #30 tab 07/23/20 09/24/20 09/07/20 Rx buspirone 10 mg tablet 15 mg PO BID #90 tab 07/23/20 09/24/20 09/08/20 Rx albuterol sulfate 90 mcg/actuation 2 puff INHALATION Q6H PRN #8.5 g 08/25/20 09/24/20 Unknown Rx aerosol inhaler aspirin [Adult Aspirin Regimen] 81 mg PO DAILY@79909/08/20 09/24/20 09/08/20 History bupropion HCl [Wellbutrin XL] 300 mg PO DAILY@79909/08/20 09/24/20 09/08/20 History celecoxib 200 mg PO DAILY@199909/08/20 09/24/20 09/07/20 History clopidogrel [Plavix] 75 mg PO DAILY@79909/08/20 09/24/20 09/08/20 History cyclobenzaprine See Rx Instructions .ROUTE .COMPLEX 09/08/20 09/24/20 09/08/20 History docusate sodium [Colace] 100 mg PO BID@,09/08/20 09/24/20 09/08/20 History duloxetine 60 mg PO BEDTIME@199909/08/20 09/24/20 09/07/20 History famotidine 20 mg PO BID@,09/08/20 09/24/20 09/08/20 History furosemide [Lasix] 40 mg PO BID@,09/08/20 09/24/20 09/08/20 History gemfibrozil 600 mg PO DAILY@199909/08/20 09/24/20 09/07/20 History loratadine 10 mg PO BEDTIME@1999 PRN 09/08/20 09/24/20 Unknown History losartan 100 mg PO DAILY@79909/08/20 09/24/20 09/08/20 History metformin 1,000 mg PO BID@,09/08/20 09/24/20 09/08/20 History oxybutynin chloride 15 mg PO DAILY@1600 09/08/20 09/24/20 09/07/20 History potassium chloride 20 meq PO BID@09/08/20 09/24/20 09/08/20 History pregabalin 75 mg PO BID@,09/08/20 09/24/20 09/08/20 History ropinirole 1.5 mg PO BEDTIME@199909/08/20 09/24/20 09/07/20 History spironolactone 25 mg PO DAILY@0809/08/20 09/24/20 09/08/20 History apixaban 5 mg PO BID #60 tab 09/09/20 09/24/20 Unknown Rx metoprolol succinate 50 mg PO DAILY #30 tab 09/09/20 09/24/20 Unknown Rx isosorbide mononitrate 30 mg PO DAILY #30 tab 09/23/20 09/24/20 Unknown Rx eszopiclone 3 mg tablet 3 mg PO BEDTIME@1999 #30 tab 09/25/20 Unknown Rx Allergies Allergy/AdvReac Type Severity Reaction Status Date / Time propoxyphene [From Darvon] Allergy Unknown Unknown Verified 09/24/20 09:33 fluoxetine [From Prozac] AdvReac Severe ADR-Halluci Verified 09/24/20 09:33 duke Current Medications Current Medications Generic Name Dose Route Start Last Admin Trade Name Freq PRN Reason Stop Dose Admin Apixaban 5 mg 09/22/20 09:00 09/23/20 10:40 Apixaban 5 Mg Tablet PO 5 mg BID LEORA Administration Aspirin 81 mg 09/22/20 08:00 09/23/20 10:40 Aspirin 81 Mg Ec Tablet PO 81 mg DAILY@0800 LEORA Administration Bupropion HCl 300 mg 09/22/20 08:00 09/23/20 11:05 Bupropion Xl (24 Hr) 300 Mg Tablet PO 300 mg DAILY@0800 LEORA Administration Buspirone HCl 15 mg 09/22/20 09:00 09/23/20 10:42 Buspirone 10 Mg Tablet PO 15 mg BID LEORA Administration Clopidogrel Bisulfate 75 mg 09/22/20 08:00 09/23/20 10:40 Clopidogrel 75 Mg Tablet PO 75 mg DAILY@0800 LEORA Administration Docusate Sodium 100 mg 05/24/21 08:00 09/23/20 10:40 Docusate Sodium 100 Mg Capsule PO 100 mg BID@0816 LEORA Administration Duloxetine HCl 60 mg 09/22/20 20:00 09/22/20 20:54 Duloxetine 60 Mg Capsule PO 60 mg BEDTIME@1999 LEORA Administration Famotidine 20 mg 09/22/20 08:00 09/23/20 10:39 Famotidine 20 Mg Tablet PO 20 mg BID@ LEORA Administration Furosemide 40 mg 09/22/20 08:00 09/23/20 10:40 Furosemide 40 Mg Tablet PO 40 mg BID@ LEORA Administration Gemfibrozil 600 mg 09/22/20 20:00 09/22/20 20:55 Gemfibrozil 600 Mg Tablet PO 600 mg DAILY@1999 LEORA Administration Insulin Aspart 0 unit 09/22/20 08:00 09/23/20 11:05 Insulin Aspart 100 Unit/1 Ml SUBCUT 6 unit WM&BEDTIME LEORA Administration Protocol Losartan Potassium 100 mg 09/22/20 08:00 09/23/20 10:44 Losartan 50 Mg Tablet PO 100 mg DAILY@08 LEORA Administration Metoprolol Tartrate 50 mg 09/22/20 21:00 09/23/20 10:41 Metoprolol Tartrate 50 Mg Tablet PO 50 mg BID@09,2100 LEORA Administration Non-Formulary 1 each 09/22/20 18:30 09/22/20 18:13 Medication ( PO 1 each Oxybutynin Xl 15 Mg) DAILY@1600 LEORA Administration Potassium Chloride 20 meq 09/22/20 08:00 09/23/20 10:39 Potassium Chloride Er 20 Meq Tablet PO 20 meq BID@ LEORA Administration Pregabalin 75 mg 09/22/20 08:00 09/23/20 10:39 Pregabalin 75 Mg Capsule PO 75 mg BID@ LEORA Administration Ropinirole HCl 1.5 mg 09/22/20 20:00 09/22/20 20:54 Ropinirole 1 Mg Tablet PO 1.5 mg BEDTIME@1999 LEORA Administration Spironolactone 25 mg 09/22/20 08:00 09/23/20 11:05 Spironolactone 25 Mg Tablet PO 25 mg DAILY@0800 LEORA Administration Topiramate 100 mg 09/22/20 09:00 09/23/20 10:41 Topiramate 100 Mg Tablet PO 100 mg TID LEORA Administration PFSH Acute PFSH: Medical History Bipolar depression CAD (coronary artery disease) Chest pain Chronic headache Chronic pain syndrome Due to her weight and other comorbidities I do not think that there is much that pain management would be able to do. They can do localized injections or treatments on specific joints but she would never be a surgical candidate. Constipation, chronic COPD (chronic obstructive pulmonary disease) Diabetes mellitus type 2 in obese Fibromyalgia Generalized anxiety disorder GERD (gastroesophageal reflux disease) Hyperlipemia Hypertension, benign Insomnia Major depressive disorder, recurrent, moderate Mixed stress and urge urinary incontinence NONA (obstructive sleep apnea) Uses CPAP Overactive bladder Panic disorder [episodic paroxysmal anxiety] Paroxysmal atrial fibrillation (~08/2020) Peripheral Vascular Disease RLS (restless legs syndrome) Surgical History H/O thyroidectomy H/O: hysterectomy Hx of cholecystectomy S/P appendectomy Family History Mother , at age 75 Hypertension Father , at age 87 Hypertension Denies family history of Lung disease Stroke Social History Smoking and tobacco status: current every day smoker cigarettes Packs smoked per day: 1 Second hand smoke exposure: No Alcohol intake: never Adopted: No Caregiver/support person: No Lives independently: Yes Housing: Apartment Marital status: / Number of children: 8 Number of grandchildren: 14 Highest education level completed: Some College, No Degree service: No Current occupational status: disabled Pets and animals: Yes Pets & animals: dog(s) History of recent travel: No Leisure activites: art, music, reading and other Sexually active: No Current gender identity: Female Lilliam/Rastafarian: Zoroastrian Special lilliam needs: No Agree to transfusion: Yes Financial difficulty paying for basics: Not Very Hard Female Reproductive History: Para: 8 Spontaneous abortions: No Vitals/I&O/Wt Last Vital Signs Temp 97.6 F 09/23/20 11:02 Pulse 95 09/23/20 11:02 Resp 17 09/23/20 11:02 BP 105/72 09/23/20 11:02 Pulse Ox 98 09/23/20 11:02 09/22/20 09/23/20 09/23/20 22:59 06:59 14:59 Intake Total 720 / 720 240 / 240 Output Total 300 / 300 Balance 420 / 420 240 / 240 Weight last 48 hrs Weight 245 lb Physical Exam Narrative: EXAM NARRATIVE: GENERAL: Patient is alert, awake and oriented x3. [] NECK: No jugular vein distension. [] HEENT: No cyanosis. No icterus. No pallor. [] HEART: Regular S1 and S2. No murmur, rub or gallop. [] LUNGS: Clear to auscultate bilaterally. [] ABDOMEN: Soft, nontender and nondistended. Positive bowel sounds. No guarding, rebound or tenderness. [] CENTRAL NERVOUS SYSTEM: Grossly nonfocal. [] EXTREMITIES: Lower extremities with no edema bilaterally. Pulses palpable in the lower extremities, both dorsalis pedis and posterior tibial. [] A&P Assessment and plan (1) Paroxysmal A-fib: Status: Acute (2) Atypical chest pain: Status: Acute (3) NONA (obstructive sleep apnea): Status: Chronic (4) Hyperlipemia: Status: Chronic Qualifiers: Hyperlipidemia type: mixed hyperlipidemia Qualified Code(s): E78.2 - Mixed hyperlipidemia (5) Diabetes mellitus type 2 in obese: Status: Chronic (6) Hypertension, benign: Status: Chronic Patient's chest pain symptoms have both typical and atypical features. Her recent echo was normal. Her stress test shows prior infarct with small area of cesar-infarct ischemia. Given her multiple admissions to the hospital, I did discuss with her the possibility of invasive work-up versus continued medical therapy. She has decided to continue with medical therapy at this time. However if she continues having chest discomfort symptoms, it will be reasonable to perform coronary angiogram. Continue rest of the medications She will follow up with Dr. Ramos in the office to discuss further options. Patient informed to come back to ER if nitros fail to resolve chest discomfort. Thank you for involving us with care of this patient. Please call with questions. Coding Level of Care Code Acute Extraction Machine Operator for Urvashi Shaw Diagnoses Paroxysmal A-fib I48.0 Atypical chest pain R07.89 NONA (obstructive sleep apnea) G47.33 Hyperlipemia E78.2 Hyperlipidemia type: mixed hyperlipidemia Diabetes mellitus type 2 in obese E11.69; E66.9 Hypertension, benign I10
--- NOTE | 2020-09-23 14:38 | PC.NURSE ---
AT APPROX. 1430, PTS IV WAS LEAKING, REMOVED IV AND PT REQUESTED TO LEAVE IT OUT IF POSSIBLE, DR. ROMERO NOTIFIED AND AWARE AND OKAYED NO IV.
--- NOTE | 2020-09-23 15:34 | P.DS_ITS ---
Discharge Providers Date of Admission: 09/22/20 00:16 Date of Discharge: September 23, 2020 Attending Provider at Admission: Hussain Porter Attending Provider at Discharge: Tobi Tolentino MD Primary Care Provider: Kristine Rodriguez MD Diagnoses at Discharge Discharge Diagnosis (1) Paroxysmal A-fib: Status: Chronic (2) Chronic anticoagulation: Status: Chronic Permanent problem details: initiated apixaban 08/2020 for paroxysmal atrial fibrillation (3) Low TSH level: Status: Chronic Permanent problem details: with normal free T3 and free T4 (4) Body mass index (BMI) of 40.1 to 44.9 in adult: Status: Chronic (5) NONA (obstructive sleep apnea): Status: Chronic Permanent problem details: Uses CPAP (6) COPD (chronic obstructive pulmonary disease): Status: Chronic (7) GERD (gastroesophageal reflux disease): Status: Chronic Qualifiers: Esophagitis presence: without esophagitis Qualified Code(s): K21.9 - Gastro-esophageal reflux disease without esophagitis (8) Diabetes mellitus type 2 in obese: Status: Chronic (9) Hypertension, benign: Status: Chronic Reason for Visit Reason for Visit: CHEST PAIN Hospital Course Hospital Course 65 year old female with past medical history of atrial fibrillation, hypertension, coronary artery disease, diabetes, fibromyalgia who presents to emergency room with complaints of chest pain.It was substernal moderate sharp without radiation. It was intermittent, Exacerbated by physical activities and improved with 2 doses of nitroglycerin.Given the fact that this was 2nd back to back admission in few days interval, she was admitted for typical cardiac chest pain work up and management.During the hospital stay EKG failed to show any acute ST-T wave changes suggestive of any acute myocardial injury.Her recent echo was normal,given her typical nature of chest pain and with all her risk factors involved she underwent nuclear stress that showed an infarct in the apical, apical lateral and apical inferior forbes with small area of cesar-infarct ischemia.She was continued on Dual antiplatelet therapy, Metoprolol, cholesterol medication and Imdur was added to her current regimen , SL nitro was continued.Cardiology was on board it was decided that for now it will be prudent to continue with medical management and she can continue to follow cardiology as outpatient.Patient responded well to the above medical management and was discharged in stable condition to home. Physical Exam Const: COMMON NORMALS: patient oriented x3 HENMT: COMMON NORMALS: normocephalic and atraumatic HEAD & SCALP: normocephalic and atraumatic Chest: CHEST: Yes Symmetrical chest wall rise Resp: COMMON NORMALS: clear to auscultation bilaterally EFFORT & INSPECTION: Yes symmetric chest movement AUSCULTATION: clear to auscultation bilaterally Cardio: COMMON NORMALS: regular rate, regular rhythm, S1 normal heart sound present, S2 normal heart sound present, No gallops present (Cardio), No murmurs present (Cardio), No rub (Cardio) and Peripheral pulses 2+ throughout RATE: regular rate RHYTHM: regular rhythm HEART SOUNDS: S1 normal heart sound present and S2 normal heart sound present PERIPHERAL PULSES: Peripheral pulses 2+ throughout GI: COMMON NORMALS: Normal to inspection, nondistended, normoactive bowel sounds present, Soft to palpation, non-tender, No hepatosplenomegaly present and no masses AUSCULTATION: Yes normoactive bowel sounds PALPATION: Yes Soft to palpation and Yes No hepatosplenomegaly present RECTAL EXAM: deferred Extremity: COMMON NORMALS: no clubbing, cyanosis or edema and no pedal edema Neuro: COMMON NORMALS: patient oriented x3 Discharge Data Data Completed and Pending: Completed Studies During Hospitalization Category Date Time Status Cardiac Stress Te st MIBI [Sestamibi Stress Test Reque st Exams 09/23/20 08:00 Draft ] Routine XR chest 1V ruma ble [id number] Stat Exams 09/21/20 18:46 Completed NM tayler perf SPECT r/s* [id number] Routin e Nuc Med 09/23/20 06:25 Completed Pending at discharge Category Date Time Status Complete Blood Co unt w/Auto AM LABS Lab 09/24/20 04:00 Ordered Complete Blood Co unt w/Auto AM LABS Lab 09/25/20 04:00 Ordered Complete Blood Co unt w/Auto AM LABS Lab 09/26/20 04:00 Ordered Comprehensive Met abolic Panel AM LA BS Lab 09/24/20 04:00 Ordered Comprehensive Met abolic Panel AM LA BS Lab 09/25/20 04:00 Ordered Comprehensive Met abolic Panel AM LA BS Lab 09/26/20 04:00 Ordered Free T4 Free Thyr oxine AM LABS Lab 09/24/20 04:00 Ordered T3 Free AM LABS Lab 09/24/20 04:00 Ordered T3 Free Stat Lab 09/23/20 05:21 Received Thyroid Stimulati ng Hormone AM LABS Lab 09/24/20 04:00 Ordered Labs from last 24 hours 09/23/20 09/23/20 09/23/20 10:33 06:08 05:21 WBC RBC Hgb Hct MCV MCH MCHC RDW Plt Count MPV Neut % (Auto) Lymph % (Auto) [place] % (Auto) Eos % (Auto) Baso % (Auto) Neut # (Auto) Lymph # (Auto) [place] # (Auto) Eos # (Auto) Baso # (Auto) Nucleated RBC % (a uto) Nucleated RBCs # Sodium Potassium Chloride Carbon Dioxide Anion Gap BUN Creatinine GFR Calculation Glucose POC Glucose 202 H 183 H Calculated Osmolal ity Calcium Magnesium TSH Free T4 Free T3 Pending 09/23/20 09/23/20 09/23/20 05:21 05:21 05:21 WBC 9.2 RBC 4.20 Hgb 12.7 Hct 41.0 MCV 97.6 MCH 30.2 MCHC 31.0 RDW 13.1 Plt Count 202 MPV 12.2 H Neut % (Auto) 53.0 Lymph % (Auto) 36.7 [place] % (Auto) 6.5 Eos % (Auto) 2.8 Baso % (Auto) 0.7 Neut # (Auto) 4.89 Lymph # (Auto) 3.4 [place] # (Auto) 0.6 Eos # (Auto) 0.3 Baso # (Auto) 0.1 Nucleated RBC % (a uto) 0 Nucleated RBCs # 0.0 Sodium 139 Potassium 4.8 Chloride 108 H Carbon Dioxide 23 Anion Gap 12.8 BUN 11 Creatinine 0.6 GFR Calculation 101.0 Glucose 166 H POC Glucose Calculated Osmolal ity 291 Calcium 8.4 L Magnesium 2.2 TSH 0.15 L 0.15 L Free T4 1.05 Free T3 09/22/20 09/22/20 09/22/20 21:02 19:11 17:02 WBC RBC Hgb Hct MCV MCH MCHC RDW Plt Count MPV Neut % (Auto) Lymph % (Auto) [place] % (Auto) Eos % (Auto) Baso % (Auto) Neut # (Auto) Lymph # (Auto) [place] # (Auto) Eos # (Auto) Baso # (Auto) Nucleated RBC % (a uto) Nucleated RBCs # Sodium Potassium Chloride Carbon Dioxide Anion Gap BUN Creatinine GFR Calculation Glucose POC Glucose 157 H 165 H 141 H Calculated Osmolal ity Calcium Magnesium TSH Free T4 Free T3 Vitals: Last Vital Signs Temp 97.6 F 09/23/20 11:02 Pulse 95 09/23/20 11:02 Resp 17 09/23/20 11:02 BP 105/72 09/23/20 11:02 Pulse Ox 98 09/23/20 11:02 Discharge Plan Discharge Patient Disposition: Home Condition: Stable Prescriptions: New isosorbide mononitrate 30 mg tablet extended release 24 hr 30 mg PO DAILY Qty: 30 RF: 3 Continued topiramate [Topamax] 100 mg tablet 100 mg PO TID RF: 0 nitroglycerin 0.4 mg tablet, sublingual 0.4 mg SUBLINGUAL Q5M PRN (Reason: Chest Pain) RF: 0 amitriptyline 100 mg tablet 100 mg PO DAILY Qty: 30 RF: 3 buspirone 10 mg tablet 15 mg PO BID Qty: 90 RF: 3 albuterol sulfate [Ventolin HFA] 90 mcg/actuation HFA aerosol inhaler 2 puff INHALATION Q6H PRN (Reason: shortness of breath or wheezing) Qty: 8.5 RF: 5 hydroxyzine pamoate 25 mg capsule 25 mg PO Q6H PRN (Reason: itching or pain) Qty: 120 RF: 3 celecoxib 200 mg capsule 200 mg PO DAILY@1999 RF: 0 furosemide [Lasix] 40 mg tablet 40 mg PO BID@ RF: 0 oxybutynin chloride 15 mg tablet extended release 24 hr 15 mg PO DAILY@1600 RF: 0 ropinirole 1 mg tablet 1.5 mg PO BEDTIME@1999 RF: 0 clopidogrel [Plavix] 75 mg tablet 75 mg PO DAILY@0800 RF: 0 aspirin [Adult Aspirin Regimen] 81 mg tablet,delayed release (DR/EC) 81 mg PO DAILY@0800 RF: 0 spironolactone 25 mg tablet 25 mg PO DAILY@0800 RF: 0 famotidine 20 mg tablet 20 mg PO BID@ RF: 0 gemfibrozil 600 mg tablet 600 mg PO DAILY@1999 RF: 0 metformin 1,000 mg tablet 1,000 mg PO BID@ RF: 0 docusate sodium [Colace] 100 mg capsule 100 mg PO BID@,16 RF: 0 losartan 100 mg tablet 100 mg PO DAILY@0800 RF: 0 loratadine 10 mg tablet 10 mg PO BEDTIME@1999 PRN (Reason: allergy symptoms) RF: 0 cyclobenzaprine 5 mg tablet See Rx Instructions .ROUTE .COMPLEX RF: 0 bupropion HCl [Wellbutrin XL] 300 mg tablet extended release 24 hr 300 mg PO DAILY@0800 RF: 0 duloxetine 60 mg capsule,delayed release(DR/EC) 60 mg PO BEDTIME@1999 RF: 0 pregabalin 75 mg capsule 75 mg PO BID@ RF: 0 potassium chloride 20 mEq tablet extended release 20 meq PO BID@ RF: 0 metoprolol succinate 50 mg tablet extended release 24 hr 50 mg PO DAILY Qty: 30 RF: 0 apixaban 5 mg tablet 5 mg PO BID Qty: 60 RF: 0 No Action eszopiclone [Lunesta] 3 mg tablet 3 mg PO BEDTIME@1999 Qty: 30 RF: 2 Discharge Orders: Discharge Order (Routine); Ordered 09/23/20 Ordered By: Tobi Tolentino Referrals: Rehana Ramos MD [Physician] - 10/02/20 2:00 pm Kristine Rodriguez MD [Primary Care Provider] - 09/30/20 8:15 am Discharge Diet: Diabetic Discharge Activity: Resume usual activity Patient Instructions: Chest Pain (DC), Thyroid Function Tests (GEN), Opioid Safety Discharge Attestations Time Spent in Discharge Care*: less than 30 min Specific Discharge Activities: educating patient, educating and/or supporting family/caregiver, discussing with pcp/other providers, discussing with insulator cutter and former/social workers/dc planners, documenting/other paperwork and evaluating patient/reviewing data Status at Discharge: Cognitive status at discharge: cognitively intact , Behavioral status at discharge: cooperative , Quality Metrics Clinical Quality Measures During this hospital stay, did patient experience: None Coding Level of Care Code Acute Chg FW DC note Diagnoses Paroxysmal A-fib I48.0 Chronic anticoagulation Z79.01 Low TSH level R79.89 Body mass index (BMI) of 40.1 to 44.9 in adult Z68.41 NONA (obstructive sleep apnea) G47.33 COPD (chronic obstructive pulmonary disease) J44.9 GERD (gastroesophageal reflux disease) K21.9 Esophagitis presence: without esophagitis Diabetes mellitus type 2 in obese E11.69; E66.9 Hypertension, benign I10
[2020-09-23 15:49] LABS: T3 Free 2.6 PG/ML (2.0-4.4)
== END 2020-09-23 16:45 | disposition home or self-care (01) ==
LOC: ER 23:52 → MEDSURG 09-22 07:07
PROVIDERS: Admitting Provider Internal Medicine; Emergency Provider Family Medicine; PCP Family Medicine; Visit Provider Internal Medicine
DX: R07.9 Chest pain, unspecified (principal); I48.91 Unspecified atrial fibrillation; I25.10 Atherosclerotic heart disease of native coronary artery without angina pectoris; E11.9 Type 2 diabetes mellitus without complications; M79.7 Fibromyalgia; Z79.84 Long term (current) use of oral hypoglycemic drugs; Z79.02 Long term (current) use of antithrombotics/antiplatelets; Z79.82 Long term (current) use of aspirin; J44.9 Chronic obstructive pulmonary disease, unspecified; F41.9 Anxiety disorder, unspecified; K21.9 Gastro-esophageal reflux disease without esophagitis; E78.5 Hyperlipidemia, unspecified; G47.33 Obstructive sleep apnea (adult) (pediatric); F17.210 Nicotine dependence, cigarettes, uncomplicated
CPT/HCPCS: 36415; 36416; 71045; 78452; 80048; 80053; 80061; 81001; 82962; 83735; 83880; 84439; 84443; 84481; 84484; 85025; 85378; 93005; 93017; 94660; 96372; 99285; A9500; G0378; J1815; J2785

== ENCOUNTER 2020-10-08 09:14 | Outpatient (CLI) | payer MEDICARE, MEDICAID, SELFPAY ==
[2020-09-02 16:11] VITALS: BP 134/75; BMI 41.9
--- NOTE | 2020-10-08 09:29 | XR_ITS ---
WS: [id number] Right shoulder, 3 views, 10/08/2020 Clinical Data: W19.XXXA - Unspecified fall, initial encounter Comparison: None. Findings: No fractures or dislocations are seen. The AC joint shows minimal osteoarthritis.. The adjacent right clavicle, right scapula and ribs are normal. The soft tissues are unremarkable. XR/XR shoulder RT min 2V* [id number] Impression: 1. Negative right shoulder. 2. 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
--- NOTE | 2020-10-08 09:29 | XR_ITS ---
WS: [id number] Pelvis, AP view, 10/08/2020 Clinical Data: W19.XXXA - Unspecified fall, initial encounter Comparison: None. Findings: No fractures or dislocations are seen. The SI joints and pubic symphysis are intact. The soft tissues are not remarkable. XR/XR pelvis 1-2V* [id number] Impression: Negative for fracture.
== END 2020-10-08 09:15 | disposition home or self-care (01) ==
LOC: RAD 09:25
PROVIDERS: PCP Family Medicine; Visit Provider Emergency Medicine
DX: M25.551 Pain in right hip (principal); M25.552 Pain in left hip; M25.511 Pain in right shoulder; W19.XXXA Unspecified fall, initial encounter; M19.011 Primary osteoarthritis, right shoulder
CPT/HCPCS: 72170; 73030

== ENCOUNTER 2020-10-09 13:35 | Observation (INO) | payer MEDICARE, MEDICAID, SELFPAY ==
[2020-09-02 16:11] VITALS: BP 134/75; BMI 41.9
[2020-10-09] VITALS (17 sets, daily range): BP systolic 82–121; BP diastolic 55–82; PULSE 85–114; RESP 17–22; TEMP 36.5–36.8; O2SAT 90–99; BMI 41.1
--- NOTE | 2020-10-09 13:39 | ECG_ITS ---
[facility] Test Date: 2020-10-09 Pat Name: Lin Henao Department: Room: Gender: Female Training Director: : 1955 Requested By: Amber Hodge Order Number: [id number] Tylor MD: Kevon Ge M.D. Measurements Intervals [place] Rate: 113 P: [place]: QRS: 34 QRSD: 99 T: 65 QT: 372 QTc: 511 Interpretive Statements ATRIAL FLUTTER/TACHYCARDIA WITH RAPID VENTRICULAR RESPONSE INDETERMINATE AXIS MODERATE ST DEPRESSION [0.05+ mV ST DEPRESSION] Compared to ECG 09/22/2020 00:18:02 Indeterminate axis now present Left anterior fascicular block no longer present ST (T wave) deviation still present Electronically Signed On 10-09-2020 16:45:52 CDT by Kevon Ge M.D. [id number]
--- NOTE | 2020-10-09 13:39 | XR_ITS ---
WS: [id number] Portable AP upright chest, 10/09/2020 Clinical Data: CP Comparison: Portable chest, 09/21/2020. Findings: No nodules, masses or effusions are seen. The heart is normal. The pulmonary vascularity is not increased. No pneumonia or pneumothorax is seen. Monitor leads are on the chest wall. XR/XR chest 1V portable [id number] Impression: Negative chest.
--- NOTE | 2020-10-09 14:12 | ED_ITS ---
HPI - Chest Pain General: Chief Complaint: Chest Pain Stated Complaint: CHEST PAIN Time Seen by Provider: 10/09/20 13:37 History of Present Illness: HPI narrative: 65-year-old female who started with chest pain about 2 hours prior to arrival its in the middle of her chest is a pressure with radiation to her back she also has noticed some shortness of breath over the past 2 days worse with exertion. She does have a little bit of a cough with some green sputum in the morning but denies any Covid symptoms loss of taste or smell or any fevers. She does have atrial fibrillation and is on Eliquis. She says this pain is similar to her previous chest pains. Patient does have known coronary artery disease as well as a recent positive stress test that they were going to medically manage unless she continued to have chest pain. Patient did not take any nitro today her blood pressure is soft. She has taken her Plavix as well as Eliquis she has multiple risk factors including diabetes coronary artery disease Review of Systems Narrative: General: denies fatigue, fever or chills HEENT: denies ear pain, denies nasal congestion, denies vision changes, denies sore throat Neck: denies masses or pain Resp: +cough, +shortness of breath, denies pleuritic pain Cardio: + chest pain, denies edema GI: denies abdominal pain, denies N/V/D, denies black/tarry or bloody stools : denies hematuria, denies dysuria Neuro: denies headache, denies dizziness, denies motor or sensory changes Musculoskeletal: denies pain, denies swelling Skin: denies rashes Psych: denies SI or HI Endocrine: denies thyroid symptoms, denies lymphadenopathy all over ROS reviewed and patient denies PFSH ED PFSH: Medical History Bipolar depression CAD (coronary artery disease) Chest pain Chronic headache Chronic pain syndrome Due to her weight and other comorbidities I do not think that there is much that pain management would be able to do. They can do localized injections or treatments on specific joints but she would never be a surgical candidate. Constipation, chronic COPD (chronic obstructive pulmonary disease) Diabetes mellitus type 2 in obese Fibromyalgia Generalized anxiety disorder GERD (gastroesophageal reflux disease) Hyperlipemia Hypertension, benign Insomnia Major depressive disorder, recurrent, moderate Mixed stress and urge urinary incontinence NONA (obstructive sleep apnea) Uses CPAP Overactive bladder Panic disorder [episodic paroxysmal anxiety] Paroxysmal atrial fibrillation (~08/2020) Peripheral Vascular Disease RLS (restless legs syndrome) Surgical History H/O thyroidectomy H/O: hysterectomy Hx of cholecystectomy S/P appendectomy Family History Mother , at age 75 Hypertension Father , at age 87 Hypertension Denies family history of Lung disease Stroke Social History Smoking and tobacco status: current every day smoker cigarettes Packs smoked per day: 1 Second hand smoke exposure: No Alcohol intake: never Adopted: No Caregiver/support person: No Lives independently: Yes Housing: Apartment Marital status: / Number of children: 8 Number of grandchildren: 14 Highest education level completed: Some College, No Degree service: No Current occupational status: disabled Pets and animals: Yes Pets & animals: dog(s) History of recent travel: No Leisure activites: art, music, reading and other Sexually active: No Current gender identity: Female Lilliam/Gnosticism: Yazidism Special lilliam needs: No Agree to transfusion: Yes Financial difficulty paying for basics: Not Very Hard Female Reproductive History: Para: 8 Spontaneous abortions: No Physical Exam Narrative: EXAM NARRATIVE: General: a/o/3, no distress Head: atraumatic HEENT: normal eyes, normal conjunctiva, normal hearing, normal external nose, normal mouth, mucous membranes moist Neck: FROM, trachea midline Chest: normal expansion, no gross deformities Resp: normal speech, no retractions, no accessory muscle use, CTA bilaterally Cardio: regular rate and rhythm and no murmur, no peripheral edema, normal peripheral pulses GI: soft, flat non tender, no guarding normal BS : deferred Musculoskeletal: FROM, no pain or gross deformities Neuro: a/o appropriate for age, no gross motor or sensory deficits, CN II-XII grossly intact, normal coordination, normal speech Skin: no rashes Psych: cooperative, normal mood and effect Course Vital Signs: Vital signs: Vital Signs Temperature 97.7 F 10/09/20 13:45 Pulse Rate 113 H 10/09/20 13:45 Respiratory Rate 18 10/09/20 13:45 Blood Pressure 97/67 10/09/20 13:45 Pulse Oximetry 97 10/09/20 13:45 MDM - Chest Pain MDM Narrative: Medical decision making narrative: Patient's blood pressure was soft on arrival she took her medications this morning it did improve on its own to 110/67 however I still think it is a little labile and do not when to give her nitro. I did order some morphine but patient's chest pain had improved on its own she was resting comfortably. I reviewed her old records and cardiology had made a comment the end of August that if she had persistent chest pain to consider an angiogram. Patient is willing to proceed with this procedure should cardiology elect to do so therefore with her multiple risk factors her also having a positive stress test 2 weeks ago I feel we need to admit her to the hospital. Spoke to the hospitalist and we will get the patient admitted Patient was placed on room air and pulse ox was normal as well as a blood pressure of 110/67 Medical Records: Attestation: I reviewed the patient's medical records. Lab Data: Attestation: I reviewed the patient's lab results. Labs: Lab Results 10/09/20 10/09/20 10/09/20 Range/Units 14:13 14:13 14:13 WBC 7.4 (4.0-10.0) 10^3/ uL RBC 4.26 (4.1-5.3) 10^6/u L Hgb 13.1 (11.5-15.3) g/dL Hct 40.5 (37.0-47.0) % MCV 95.1 (81-99) fL MCH 30.8 (28.0-34.0) pg MCHC 32.3 (30.0-36.0) g/dL RDW 13.3 (12.1-15.1) % Plt Count 201 (130-400) 10^3/c mm MPV 11.7 H (7.4-10.4) fL Neut % (Auto) 58.7 % Lymph % (Auto) 32.3 % [place] % (Auto) 5.7 % Eos % (Auto) 2.7 % Baso % (Auto) 0.5 % Neut # (Auto) 4.33 (1.8-7.7) 10^3/u L Lymph # (Auto) 2.4 (0.8-4.8) 10^3/u L [place] # (Auto) 0.4 (0.2-0.9) 10^3/u L Eos # (Auto) 0.2 (0.0-0.8) 10^3/u L Baso # (Auto) 0.0 (0.0-0.1) 10^3/u L Nucleated RBC % (a uto) 0 % Nucleated RBCs # 0.0 /100WBC Sodium 140 (136-145) mmol/L Potassium 4.4 (3.5-5.1) mmol/L Chloride 106 (98-107) mmol/L Carbon Dioxide 23 (22-29) mmol/L Anion Gap 15.4 (5-19) BUN 11 (8-23) mg/dL Creatinine 0.8 (0.5-0.9) mg/dL GFR Calculation 72.4 L (90-130) mL/min Glucose 106 (65-115) mg/dL Calculated Osmolal ity 290 (285-295) mOsm/k g Calcium 8.5 (8.5-10.5) mg/dL Total Bilirubin 0.2 (0.15-1.2) mg/dL AST 41 H (0-32) U/L ALT 28 (0-33) U/L Alkaline Phosphata se 115 H (35-105) IU/L Troponin T Baselin e 14 H (0-10) ng/L Total Protein 6.5 L (6.6-8.7) g/dL Albumin 3.9 (3.5-5.2) g/dL Globulin 2.6 (1.3-4.6) g/dL EKG Data^: EKG 1: EKG interpretation date: 10/09/20 EKG interpretation time: 13:59 Interpretation: Atrial flutter rate [address] changes or elevation Discharge Plan Discharge Patient Disposition: Placed in Observation Clinical Impression: Chest pain Condition: Stable Prescriptions: No Action topiramate [Topamax] 100 mg tablet 100 mg PO TID@08,12,20 RF: 0 nitroglycerin 0.4 mg tablet, sublingual 0.4 mg SUBLINGUAL Q5M PRN (Reason: Chest Pain) RF: 0 albuterol sulfate [Ventolin HFA] 90 mcg/actuation HFA aerosol inhaler 2 puff INHALATION Q6H PRN (Reason: shortness of breath or wheezing) Qty: 8.5 RF: 5 eszopiclone [Lunesta] 3 mg tablet 3 mg PO BEDTIME@1999 Qty: 30 RF: 2 celecoxib 200 mg capsule 200 mg PO DAILY@1999 RF: 0 furosemide [Lasix] 40 mg tablet 40 mg PO BID@, RF: 0 oxybutynin chloride 15 mg tablet extended release 24 hr 15 mg PO DAILY@1600 RF: 0 ropinirole 1 mg tablet 1.5 mg PO BEDTIME@1999 RF: 0 clopidogrel [Plavix] 75 mg tablet 75 mg PO DAILY@08 RF: 0 aspirin [Adult Aspirin Regimen] 81 mg tablet,delayed release (DR/EC) 81 mg PO DAILY@08 RF: 0 spironolactone 25 mg tablet 25 mg PO DAILY@08 RF: 0 famotidine 20 mg tablet 20 mg PO BID@ RF: 0 gemfibrozil 600 mg tablet 600 mg PO DAILY@1999 RF: 0 metformin 1,000 mg tablet 1,000 mg PO BID@ RF: 0 docusate sodium [Colace] 100 mg capsule 100 mg PO BID@ RF: 0 losartan 100 mg tablet 100 mg PO DAILY@799 RF: 0 loratadine 10 mg tablet 10 mg PO BEDTIME@1999 PRN (Reason: allergy symptoms) RF: 0 cyclobenzaprine 5 mg tablet See Rx Instructions .ROUTE .COMPLEX RF: 0 bupropion HCl [Wellbutrin XL] 300 mg tablet extended release 24 hr 300 mg PO DAILY@799 RF: 0 duloxetine 60 mg capsule,delayed release(DR/EC) 60 mg PO BEDTIME@1999 RF: 0 pregabalin 75 mg capsule 75 mg PO BID@ RF: 0 potassium chloride 20 mEq tablet extended release 20 meq PO BID@ RF: 0 One A Day 1 tab PO DAILY@1999 RF: 0 Vitamin C 1 tab PO DAILY@1999 RF: 0 melatonin 1 tab PO DAILY@1999 RF: 0 metoprolol succinate 50 mg tablet extended release 24 hr 50 mg PO DAILY@0800 RF: 0 isosorbide mononitrate 30 mg tablet extended release 24 hr 30 mg PO DAILY@0800 RF: 0 buspirone 10 mg tablet 15 mg PO BID@ RF: 0 amitriptyline 100 mg tablet 100 mg PO DAILY@1999 RF: 0 apixaban 5 mg tablet 5 mg PO BID@ RF: 0 Referrals: Kristine Rodriguez MD [Primary Care Provider] - Coding Level of Care Code ED Dot Compliance Manager for Urvashi Shaw
[2020-10-09 14:22] LABS: Basophils % 0.5 %; Eosinophils # 0.2 10^3/uL (0.0-0.8); Eosinophils % 2.7 %; Hematocrit 40.5 % (37.0-47.0); Hemoglobin 13.1 g/dL (11.5-15.3); Lymphocytes # 2.4 10^3/uL (0.8-4.8); Lymphocytes % 32.3 %; Mean Corpuscular HGB Conc 32.3 g/dL (30.0-36.0); Mean Corpuscular Hemoglobin 30.8 pg (28.0-34.0); Mean Corpuscular Volume 95.1 fL (81-99); Mean Platelet Volume 11.7 fL (7.4-10.4); Monocytes # 0.4 10^3/uL (0.2-0.9); Monocytes % 5.7 %; Neutrophils # 4.33 10^3/uL (1.8-7.7); Neutrophils % 58.7 %; Nucleated Red Blood Cells % 0 %; Platelet Count 201 10^3/cmm (130-400); Red Blood Count 4.26 10^6/uL (4.1-5.3); Red Cell Distribution Width 13.3 % (12.1-15.1); White Blood Count 7.4 10^3/uL (4.0-10.0)
[2020-10-09 14:41] LABS: Alanine Aminotransferase 28 U/L (0-33); Albumin Level 3.9 g/dL (3.5-5.2); Alkaline Phosphatase 115 IU/L (35-105); Aspartate Amino Transferase 41 U/L (0-32); Blood Urea Nitrogen 11 mg/dL (8-23); Calcium 8.5 mg/dL (8.5-10.5); Carbon Dioxide 23 mmol/L (22-29); Chloride 106 mmol/L (98-107); Globulin 2.6 g/dL (1.3-4.6); Glomerular Filtration Rate 72.4 mL/min (90-130); Glucose 106 mg/dL (65-115); Osmolality Calculated 290 mOsm/kg (285-295); Sodium 140 mmol/L (136-145); Total Bilirubin 0.2 mg/dL (0.15-1.2); Total Protein 6.5 g/dL (6.6-8.7)
[2020-10-09 14:42] LABS: Troponin(5th) Baseline 14 ng/L (0-10)
[2020-10-09 14:44] LABS: Anion Gap 15.4 (5-19); Potassium 4.4 mmol/L (3.5-5.1)
[2020-10-09 15:39] LABS: Bilirubin Urine Neg (Negative); Blood Urine Neg (Negative); Glucose Urine UA Norm (Normal); Ketones Urine Negative (Negative); Leukocyte Esterase Urine Negative (Negative); Nitrate Urine Positive (Negative); Protein Urine Neg (Negative); Specific Gravity, Urine 1.015 (1.005-1.030); Urine Appearance Clear (CLEAR); Urine Color Yellow (Yellow); Urobilinogen Urine Norm (Negative); pH Urine 5 (5-7)
[2020-10-09 15:41] LABS: Add Urine Culture? Yes; Bacteria Urine 2+ /hpf; RBC Urine 0-4 /hpf (0-2); Squamous Epithelial Cell Urine 0-4 /hpf (0-5); WBC Urine 0-4 /hpf (0-5)
[2020-10-09 15:43] LABS: Amphetamines Screen Urine Negative (Negative); Barbiturates Screen Urine Negative (Negative); Benzodiazepines Screen Urine Negative (Negative); Cocaine Screen Urine Negative (Negative); Opiate Screen Urine Negative (Negative); PCP Screen Urine Negative (Negative); THC Screen Urine Negative (Negative)
--- NOTE | 2020-10-09 16:37 | PM.HP ---
Providers/Chief Complaint Primary Care Provider: Kristine Rodriguez MD Chief Complaint: CHEST PAIN/ AMS History of Present Illness Pleasant 65-year-old lady with history of CAD, COPD, current smoker, metabolic syndrome, NONA on nightly CPAP as well as a number of other medical comorbidities including A. fib on chronic anticoagulation, came to the hospital due to chest pain starting about 2 hours prior to arrival, currently feeling better after initial treatment with morphine in ER, blood pressure was too soft for nitroglycerin. She has history of recent admission which included cardiac work-up with finding of abnormal myocardial perfusion imaging demonstrating infarct and apical, apical lateral and apical inferior forbes with small area of cesar-infarct ischemia for which she was continued on medical treatment. She reports that she has been taking her medications. She reports still some persistent mild chest tightness currently. She does have currently also cough productive of green sputum, worsened dyspnea on exertion. She usually does sleep propped up on 4 pillows, but this is chronic. She denies any lower extremity edema. Chest x-ray in ER is unremarkable. First troponin is 14. EKG with atrial flutter, moderate ST depression in 2, 3, aVF. She took her morning medications today which she believes should include aspirin and Plavix. She still smokes, but has been trying to quit. Review of Systems Const: Denies: fever(s), chills, body aches or malaise Eyes: Denies: change in vision or eye redness ENMT: Denies: throat pain, oral sores or ear or mastoid pain Card: Reports: chest pain and dyspnea on exertion; Denies: edema or pre-syncope Resp: Reports: dyspnea, productive cough and change in phlegm color; Denies: hemoptysis GI: Denies: abdominal pain, nausea, vomiting, diarrhea, constipation, hematochezia or melena : Denies: flank pain, urinary frequency or hematuria Musc: Denies: back pain, joint swelling or joint redness Skin/Breast: Denies: rash, sores or new lesions Neuro: Denies: headache(s), numbness in extremities, weakness in extremities, dizziness, confusion or seizure-like activity Endo: Denies: polyuria or polydipsia Jagjit/Lymph: Denies: easy bleeding or purpura All/Imm: Denies: urticaria, throat swelling or tongue swelling Medications/Allergies Home Medications Medication Instructions Recorded Confirmed Last Taken Type topiramate 100 mg tablet 100 mg PO TID@08,12,20 tab 05/03/19 10/09/20 10/09/20 History nitroglycerin 0.4 mg sublingual 0.4 mg SUBLINGUAL Q5M PRN 05/23/19 10/09/20 Unknown History tablet albuterol sulfate 90 mcg/actuation 2 puff INHALATION Q6H PRN #8.5 g 08/25/20 10/09/20 Unknown Rx aerosol inhaler aspirin [Adult Aspirin Regimen] 81 mg PO DAILY@79909/08/20 10/09/20 10/09/20 History bupropion HCl [Wellbutrin XL] 300 mg PO DAILY@79909/08/20 10/09/20 10/09/20 History celecoxib 200 mg PO DAILY@199909/08/20 10/09/20 10/08/20 History clopidogrel [Plavix] 75 mg PO DAILY@79909/08/20 10/09/20 10/09/20 History cyclobenzaprine See Rx Instructions .ROUTE .COMPLEX 09/08/20 10/09/20 10/09/20 History docusate sodium [Colace] 100 mg PO BID@08,09/08/20 10/09/20 10/09/20 History duloxetine 60 mg PO BEDTIME@199909/08/20 10/09/20 10/08/20 History famotidine 20 mg PO BID@08,09/08/20 10/09/20 10/09/20 History furosemide [Lasix] 40 mg PO BID@,09/08/20 10/09/20 10/09/20 History gemfibrozil 600 mg PO DAILY@199909/08/20 10/09/20 10/08/20 History loratadine 10 mg PO BEDTIME@1999 PRN 09/08/20 10/09/20 10/08/20 History losartan 100 mg PO DAILY@79909/08/20 10/09/20 10/09/20 History metformin 1,000 mg PO BID@08,09/08/20 10/09/20 10/09/20 History oxybutynin chloride 15 mg PO DAILY@159909/08/20 10/09/20 10/08/20 History potassium chloride 20 meq PO BID@08,20 05/10/21 06/10/21 06/10/21 History pregabalin 75 mg PO BID@09/08/20 10/09/20 10/09/20 History ropinirole 1.5 mg PO BEDTIME@199909/08/20 10/09/20 10/08/20 History spironolactone 25 mg PO DAILY@0809/08/20 10/09/20 10/08/20 History eszopiclone 3 mg tablet 3 mg PO BEDTIME@1999 #30 tab 09/25/20 10/09/20 10/08/20 Rx One A Day 1 tab PO DAILY@199910/09/20 10/09/20 10/08/20 History Vitamin C 1 tab PO DAILY@199910/09/20 10/09/20 10/08/20 History amitriptyline 100 mg PO DAILY@199910/09/20 10/09/20 10/08/20 History apixaban 5 mg PO BID@08,199910/09/20 10/09/20 10/09/20 History buspirone 15 mg PO BID@08,199910/09/20 10/09/20 10/09/20 History isosorbide mononitrate 30 mg PO DAILY@79910/09/20 10/09/20 10/09/20 History melatonin 1 tab PO DAILY@199910/09/20 10/09/20 10/08/20 History metoprolol succinate 50 mg PO DAILY@0800 10/09/20 10/09/20 10/09/20 History Allergies Allergy/AdvReac Type Severity Reaction Status Date / Time propoxyphene [From Darvon] Allergy Unknown Unknown Verified 10/07/20 11:48 fluoxetine [From Prozac] AdvReac Severe ADR-Halluci Verified 10/07/20 11:48 nating PFSH Acute PFSH: Medical History Atypical chest pain Bipolar depression CAD (coronary artery disease) Chest pain Chronic headache Chronic pain syndrome Due to her weight and other comorbidities I do not think that there is much that pain management would be able to do. They can do localized injections or treatments on specific joints but she would never be a surgical candidate. Constipation, chronic COPD (chronic obstructive pulmonary disease) Diabetes mellitus type 2 in obese Fibromyalgia Generalized anxiety disorder GERD (gastroesophageal reflux disease) Hyperlipemia Hypertension, benign Insomnia Major depressive disorder, recurrent, moderate Mixed stress and urge urinary incontinence NONA (obstructive sleep apnea) Uses CPAP Overactive bladder Panic disorder [episodic paroxysmal anxiety] Paroxysmal A-fib Paroxysmal atrial fibrillation (~08/2020) Peripheral Vascular Disease RLS (restless legs syndrome) Surgical History H/O thyroidectomy H/O: hysterectomy Hx of cholecystectomy S/P appendectomy Family History Mother , at age 75 Hypertension Father , at age 87 Hypertension Denies family history of Lung disease Stroke Social History Smoking and tobacco status: current every day smoker cigarettes Packs smoked per day: 1 Second hand smoke exposure: No Alcohol intake: never Adopted: No Caregiver/support person: No Lives independently: Yes Housing: Apartment Marital status: / Number of children: 8 Number of grandchildren: 14 Highest education level completed: Some College, No Degree service: No Current occupational status: disabled Pets and animals: Yes Pets & animals: dog(s) History of recent travel: No Leisure activites: art, music, reading and other Sexually active: No Current gender identity: Female Lilliam/Restorationist: [employer]ism Special lilliam needs: No Agree to transfusion: Yes Financial difficulty paying for basics: Not Very Hard Female Reproductive History: Para: 8 Spontaneous abortions: No Vitals/I&O/Wt Last Vital Signs Temp 97.7 F 10/09/20 13:45 Pulse 111 H 10/09/20 15:48 Resp 18 10/09/20 13:45 BP 119/67 10/09/20 15:48 Pulse Ox 95 10/09/20 15:48 Weight last 48 hrs Weight 108.862 kg Physical Exam Const: COMMON NORMALS: no acute distress, patient oriented x3 and alert GENERAL APPEARANCE: cooperative NUTRITIONAL APPEARANCE: obese ORIENTATION/CONSCIOUSNESS: Yes awake HENMT: COMMON NORMALS: oropharynx normal TEETH & GINGIVA: Yes edentulous Neck/C-Spine: COMMON NORMALS: no JVD Resp: COMMON NORMALS: normal respiratory effort and clear to auscultation bilaterally AUSCULTATION: rhonchi, wheezes and diminished lung sounds Cardio: COMMON NORMALS: no JVD, regular rhythm, S1 normal heart sound present, S2 normal heart sound present and No murmurs present (Cardio) RHYTHM: regular rhythm HEART SOUNDS: S1 normal heart sound present and S2 normal heart sound present GI: COMMON NORMALS: Normal to inspection, nondistended, normoactive bowel sounds present, Soft to palpation and non-tender PALPATION: Yes Soft to palpation Extremity: COMMON NORMALS: no joint enlargement and no pedal edema OTHER: Hemosiderosis, old scarring/atrophy on distal lower extremities above ankles Neuro: COMMON NORMALS: patient oriented x3 and moves all extremities Skin: COMMON NORMALS: no rashes or lesions noted GENERAL SKIN EXAM: no rashes or lesions noted and dry skin Data : 10/09/20 14:13 10/09/20 14:13 A&P Assessment and plan (1) Chest pain: Possible unstable angina, still some chest pressure. Does at the same time have COPD exacerbation. With morphine some improvement, but persistent chest tightness. Recently abnormal stress test. Multiple risk factors for CAD including active smoking. Troponin abnormal at 14. EKG with ST depression in 2, 3, aVF. Has taken aspirin, Plavix today. Continue antiplatelets. On anticoagulation. Continue statin. Beta-richy. Imdur for now held due to hypotension. Has had recently assess TTE. Admitting to [facility] with telemetry and cardiology consultation. She anticipates discussion with cardiology regarding consideration of additional evaluation by coronary angiography given symptoms and recently abnormal stress test. Status: Acute Qualifiers: Chest pain type: unspecified Qualified Code(s): R07.9 - Chest pain, unspecified (2) COPD exacerbation: Severe COPD exacerbation with dyspnea, cough, productive of purulent appearing sputum with color change to green. Collect sputum culture. With quite significant airway reactivity, with rhonchi, wheezing, diminished air entry. Solu-Medrol. Doxycycline. Breathing treatments. Oxygen support as needed. Status: Acute (3) Smoking addiction: Discussed smoking cessation with her for 4 minutes. She is aware she needs to quit due to multiple risk factors. She has been cutting down and is down to less than a pack a day, which she says is the least that she has ever smoked. She will continue trying. She requests for a nicotine patch which will start for her. Status: Acute Additional A&P Information Hypotension: Blood pressure soft in the 90s systolic in ER. For now hold losartan. Decrease metoprolol dose. Hold spironolactone. Hold Imdur. Monitor blood pressures. Atrial fibrillation: Chronic anticoagulation. Decrease metoprolol dose for now. NONA: Continue CPAP DM2: Insulin sliding scale HLD GERD Panic disorder Fibromyalgia Chronic pain RLS Other chronic conditions noted. Attestations Medical Necessity Statement*: Admission of over 2 midnights is good to be needed for assessment of management of chest pain, possible unstable angina with abnormal stress test, severe COPD exacerbation, in a lady who is a current smoker, with a number of medical comorbidities. Coding Level of Care Code Acute Line Installer Repairer for [facility] Diagnoses Chest pain R07.9 Chest pain type: unspecified COPD exacerbation J44.1 Smoking addiction F17.200
[2020-10-09 16:42] LABS: Troponin 5 2HR 13.32 ng/L (0-10)
[2020-10-09 16:47] LABS: Troponin 5 2HR Delta -0.68 ABS# (0-10)
[2020-10-09 17:52] LABS: Glucose Point of Care 113 mg/dL (70-110)
[2020-10-09] MEDS: nicotine 21 mg Patch 1 PATCH TRANSDERMA (18:31)
--- NOTE | 2020-10-09 19:23 | PC.NURSE ---
received into room 102 from er .report recieved.pt is alert and oriented x 4.afib at controlled rate on monitor.denies cp at present.oriented to room environment.instructed to notify staff for any sob,cp,or for any concern at all.pt verb understanding of instructions
[2020-10-09 20:16] LABS: Glucose Point of Care 197 mg/dL (70-110)
[2020-10-09] MEDS: cyclobenzaprine 10 mg Tablet PO (20:30)
[2020-10-09] MEDS: ropinirole 1 mg Tablet 1.5 MG PO (20:30)
[2020-10-09] MEDS: amitriptyline 25 mg Tablet 100 MG PO (20:30)
[2020-10-09] MEDS: gemfibrozil 600 mg Tablet PO (20:30)
[2020-10-09] MEDS: pregabalin 75 mg Capsule PO (20:31)
[2020-10-09] MEDS: BuSPIRONE 10 mg Tablet 15 MG PO (20:31)
[2020-10-09] MEDS: duloxetine 60 mg Capsule PO (20:31)
[2020-10-09] MEDS: topiramate 100 mg Tablet PO (20:31)
[2020-10-09] MEDS: famotidine 20 mg Tablet PO (20:32)
[2020-10-09] MEDS: doxycycline 100 MG in sodium chloride 0.9% (plus) 100 ML IV (20:34)
[2020-10-09 20:50] LABS: Troponin 5 6HR 12.51 ng/L (0-10); Troponin 5 6HR Delta -1.49 ng/L (0-12)
--- NOTE | 2020-10-09 21:45 | P.CONIM_ITS ---
Providers/Reason For Consult Consulting Physician/Specialty*: Kevon Ge MD/Cardiology Reason for Consult*: Chest pain/abnormal stress test Requesting Physician: Dr Correa Attending Physician: Asher Correa Primary Care Provider: Kristine Rodriguez MD History of Present Illness History of Present Illness Lin Henao is a 65 year old female with history of COPD, current smoker, metabolic syndrome, NONA on nightly CPAP as well as a number of other medical comorbidities including A. fib on chronic anticoagulation, presented to hospital with 2 to 3 hours of chest discomfort. She says the chest pain was substernal and radiated to the back. She was recently admitted to the hospital with chest discomfort. She underwent a nuclear stress test at that time that showed partially reversible apical and apical inferior wall perfusion defect. At that time medical therapy was planned. However patient has presented again with chest pain symptoms. She is experiencing it on she is experiencing it on both rest and exertion. She also has been having shortness of breath and cough. No fever. Review of Systems Const: Denies: fever(s), chills, body aches or malaise Eyes: Denies: change in vision or eye redness ENMT: Denies: throat pain, oral sores or ear or mastoid pain Card: Reports: chest pain and dyspnea on exertion; Denies: edema or pre-syncope Resp: Reports: dyspnea, productive cough and change in phlegm color; Denies: hemoptysis GI: Denies: abdominal pain, nausea, vomiting, diarrhea, constipation, hematochezia or melena : Denies: flank pain, urinary frequency or hematuria Musc: Denies: back pain, joint swelling or joint redness Skin/Breast: Denies: rash, sores or new lesions Neuro: Denies: headache(s), numbness in extremities, weakness in extremities, dizziness, confusion or seizure-like activity Endo: Denies: polyuria or polydipsia Jagjit/Lymph: Denies: easy bleeding or purpura All/Imm: Denies: urticaria, throat swelling or tongue swelling Meds/Allergies Home Medications and Allergies Home Medications Medication Instructions Recorded Confirmed Last Taken Type topiramate 100 mg tablet 100 mg PO TID@08,12,20 tab 05/03/19 10/09/20 10/09/20 History nitroglycerin 0.4 mg sublingual 0.4 mg SUBLINGUAL Q5M PRN 05/23/19 10/09/20 Unknown History tablet albuterol sulfate 90 mcg/actuation 2 puff INHALATION Q6H PRN #8.5 g 08/25/20 10/09/20 Unknown Rx aerosol inhaler aspirin [Adult Aspirin Regimen] 81 mg PO DAILY@79909/08/20 10/09/20 10/09/20 History bupropion HCl [Wellbutrin XL] 300 mg PO DAILY@79909/08/20 10/09/20 10/09/20 History celecoxib 200 mg PO DAILY@199909/08/20 10/09/20 10/08/20 History clopidogrel [Plavix] 75 mg PO DAILY@79909/08/20 10/09/20 10/09/20 History cyclobenzaprine See Rx Instructions .ROUTE .COMPLEX 09/08/20 10/09/20 10/09/20 History docusate sodium [Colace] 100 mg PO BID@,09/08/20 10/09/20 10/09/20 History duloxetine 60 mg PO BEDTIME@199909/08/20 10/09/20 10/08/20 History famotidine 20 mg PO BID@,09/08/20 10/09/20 10/09/20 History furosemide [Lasix] 40 mg PO BID@,09/08/20 10/09/20 10/09/20 History gemfibrozil 600 mg PO DAILY@199909/08/20 10/09/20 10/08/20 History loratadine 10 mg PO BEDTIME@1999 PRN 09/08/20 10/09/20 10/08/20 History losartan 100 mg PO DAILY@79909/08/20 10/09/20 10/09/20 History metformin 1,000 mg PO BID@,09/08/20 10/09/20 10/09/20 History oxybutynin chloride 15 mg PO DAILY@159909/08/20 10/09/20 10/08/20 History potassium chloride 20 meq PO BID@,09/08/20 10/09/20 10/09/20 History pregabalin 75 mg PO BID@,09/08/20 10/09/20 10/09/20 History ropinirole 1.5 mg PO BEDTIME@199909/08/20 10/09/20 10/08/20 History spironolactone 25 mg PO DAILY@0809/08/20 10/09/20 10/08/20 History eszopiclone 3 mg tablet 3 mg PO BEDTIME@1999 #30 tab 09/25/20 10/09/20 10/08/20 Rx One A Day 1 tab PO DAILY@199910/09/20 10/09/20 10/08/20 History Vitamin C 1 tab PO DAILY@199910/09/20 10/09/20 10/08/20 History amitriptyline 100 mg PO DAILY@199910/09/20 10/09/20 10/08/20 History apixaban 5 mg PO BID@0800,199910/09/20 10/09/20 10/09/20 History buspirone 15 mg PO BID@0800,199910/09/20 10/09/20 10/09/20 History isosorbide mononitrate 30 mg PO DAILY@0810/09/20 10/09/20 10/09/20 History melatonin 1 tab PO DAILY@199910/09/20 10/09/20 10/08/20 History metoprolol succinate 50 mg PO DAILY@79910/09/20 10/09/20 10/09/20 History Allergies Allergy/AdvReac Type Severity Reaction Status Date / Time propoxyphene [From Darvon] Allergy Unknown Unknown Verified 10/07/20 11:48 fluoxetine [From Prozac] AdvReac Severe ADR-Halluci Verified 10/07/20 11:48 nating Current Medications Current Medications Generic Name Dose Route Start Last Admin Trade Name Freq PRN Reason Stop Dose Admin Amitriptyline HCl 100 mg 10/09/20 20:10/09/20 20:30 Amitriptyline 25 Mg Tablet PO 100 mg DAILY@1999 LEORA Administration Buspirone HCl 15 mg 10/09/20 20:00 10/09/20 20:31 Buspirone 10 Mg Tablet PO 15 mg BID@0800,1999 LEORA Administration Cyclobenzaprine HCl 10 mg 10/09/20 20:00 10/09/20 20:30 Cyclobenzaprine 10 Mg Tablet PO 10 1999 LEORA Administration Duloxetine HCl 60 mg 10/09/20 20:00 10/09/20 20:31 Duloxetine 60 Mg Capsule PO 60 mg BEDTIME@1999 [facility] Administration Famotidine 20 mg 10/09/20 20:00 10/09/20 20:32 Famotidine 20 Mg Tablet PO 20 mg BID@08, LEORA Administration Gemfibrozil 600 mg 10/09/20 20:00 10/09/20 20:30 Gemfibrozil 600 Mg Tablet PO 600 mg DAILY@1999 [facility] Administration Doxycycline Hyclate 100 mg/ 100 mls @ 100 mls/hr 10/09/20 20:00 10/09/20 20:34 Sodium Chloride IV 100 mls/hr Q12H LEORA Administration Protocol Insulin Aspart 0 unit 10/09/20 18:00 10/09/20 20:32 Insulin Aspart 100 Unit/1 Ml SUBCUT 4 unit WM&BEDTIME LEORA Administration Protocol Methylprednisolone Sodium Succinate 60 mg 10/09/20 18:30 10/09/20 18:30 Methylprednisolone Sod Succ 125 Mg/2 Ml Inj IVP 60 mg Q6H LEORA Administration Nicotine 1 patch 10/09/20 17:31 10/09/20 18:31 Nicotine 21 Mg Patch TRANSDERMA 1 patch Q24H [facility] Administration Non-Formulary Medication 1 tab 10/09/20 20:00 10/09/20 20:33 Melatonin PO Not Given DAILY@1999 [facility] Pregabalin 75 mg 10/09/20 20:00 10/09/20 20:31 Pregabalin 75 Mg Capsule PO 75 mg BID@08, [facility] Administration Ropinirole HCl 1.5 mg 10/09/20 20:00 10/09/20 20:30 Ropinirole 1 Mg Tablet PO 1.5 mg BEDTIME@1999 [facility] Administration Topiramate 100 mg 10/09/20 20:00 10/09/20 20:31 Topiramate 100 Mg Tablet PO 100 mg TID@08,12,20 [facility] Administration PFSH Acute PFSH: Medical History Atypical chest pain Bipolar depression CAD (coronary artery disease) Chest pain Chronic headache Chronic pain syndrome Due to her weight and other comorbidities I do not think that there is much that pain management would be able to do. They can do localized injections or treatments on specific joints but she would never be a surgical candidate. Constipation, chronic COPD (chronic obstructive pulmonary disease) Diabetes mellitus type 2 in obese Fibromyalgia Generalized anxiety disorder GERD (gastroesophageal reflux disease) Hyperlipemia Hypertension, benign Insomnia Major depressive disorder, recurrent, moderate Mixed stress and urge urinary incontinence NONA (obstructive sleep apnea) Uses CPAP Overactive bladder Panic disorder [episodic paroxysmal anxiety] Paroxysmal A-fib Paroxysmal atrial fibrillation (~08/2020) Peripheral Vascular Disease RLS (restless legs syndrome) Surgical History H/O thyroidectomy H/O: hysterectomy Hx of cholecystectomy S/P appendectomy Family History Mother , at age 75 Hypertension Father , at age 87 Hypertension Denies family history of Lung disease Stroke Social History Smoking and tobacco status: current every day smoker cigarettes Packs smoked per day: 1 Second hand smoke exposure: No Alcohol intake: never Adopted: No Caregiver/support person: No Lives independently: Yes Housing: Apartment Marital status: / Number of children: 8 Number of grandchildren: 14 Highest education level completed: Some College, No Degree service: No Current occupational status: disabled Pets and animals: Yes Pets & animals: dog(s) History of recent travel: No Leisure activites: art, music, reading and other Sexually active: No Current gender identity: Female Lilliam/Latter Day: Denominational Special lilliam needs: No Agree to transfusion: Yes Financial difficulty paying for basics: Not Very Hard Female Reproductive History: Para: 8 Spontaneous abortions: No Vitals/I&O/Wt Last Vital Signs Temp 98.2 F 10/09/20 18:50 Pulse 85 10/09/20 18:50 Resp 22 H 10/09/20 18:50 BP 110/82 10/09/20 19:47 Pulse Ox 94 10/09/20 18:52 10/09/20 10/09/20 10/09/20 06:59 14:59 22:59 Output Total 350 / 350 Balance -350 / -350 Weight last 48 hrs Weight 240 lb Physical Exam Narrative: EXAM NARRATIVE: GENERAL: Patient is alert, awake and oriented x3. [] NECK: No jugular vein distension. [] HEENT: No cyanosis. No icterus. No pallor. [] HEART: irregularly irregular,S1 and S2. No murmur, rub or gallop. [] LUNGS: Clear to auscultate bilaterally. [] ABDOMEN: Soft, nontender and nondistended. Positive bowel sounds. No guarding, rebound or tenderness. [] CENTRAL NERVOUS SYSTEM: Grossly nonfocal. [] EXTREMITIES: Lower extremities with no edema bilaterally. Pulses palpable in the lower extremities, both dorsalis pedis and posterior tibial. [] A&P Assessment and plan (1) Paroxysmal A-fib: (2) NONA (obstructive sleep apnea): (3) Hyperlipemia: Qualifiers: Hyperlipidemia type: mixed hyperlipidemia Qualified Code(s): E78.2 - Mixed hyperlipidemia (4) Diabetes mellitus type 2 in obese: (5) Hypertension, benign: (6) Chest pain: Status: Acute Qualifiers: Chest pain type: unspecified Qualified Code(s): R07.9 - Chest pain, unspecified Patient had a recent admission to hospital with chest pain. On her last admission nuclear stress test was abnormal which showed partially reversible perfusion defect in apical and apical inferior forbes. Medical therapy was done at that time. However she has come back with chest discomfort. Trend troponins Had a discussion with patient that given her multiple admissions with chest discomfort, we will proceed with coronary angiogram. She is on Eliquis and she took last dose this a.m. We will stop Eliquis and likely perform coronary angiogram with possible percutaneous coronary intervention on Tuesday.She also has bronchitis symptoms. WBC count is normal and not febrile. Will be treated in the meanwhile. Thank you for involving us with care of this patient. We will continue to follow. Please call with questions. Coding Level of Care Code Acute Triage Technician for [facility] Fwd Diagnoses Paroxysmal A-fib I48.0 NONA (obstructive sleep apnea) G47.33 Hyperlipemia E78.2 Hyperlipidemia type: mixed hyperlipidemia Diabetes mellitus type 2 in obese E11.69; E66.9 Hypertension, benign I10 Chest pain R07.9 Chest pain type: unspecified
[2020-10-09] MEDS: ipratropium-albuterol 3 mL Neb INHALATION (23:27)
[2020-10-10] VITALS (15 sets, daily range): BP systolic 97–133; BP diastolic 47–91; PULSE 99–166; RESP 16–21; TEMP 36.4–36.9; O2SAT 92–98
[2020-10-10] MEDS: ipratropium-albuterol 3 mL Neb INHALATION ×4 (03:43→22:17)
[2020-10-10 04:50] LABS: Basophils % 0.1 %; Hematocrit 42.5 % (37.0-47.0); Hemoglobin 13.4 g/dL (11.5-15.3); Lymphocytes # 1.9 10^3/uL (0.8-4.8); Lymphocytes % 28.4 %; Mean Corpuscular HGB Conc 31.5 g/dL (30.0-36.0); Mean Corpuscular Volume 95.1 fL (81-99); Monocytes # 0.1 10^3/uL (0.2-0.9); Monocytes % 1.5 %; Neutrophils # 4.67 10^3/uL (1.8-7.7); Neutrophils % 69.6 %; Nucleated Red Blood Cells % 0 %; Platelet Count 235 10^3/cmm (130-400); Red Blood Count 4.47 10^6/uL (4.1-5.3); Red Cell Distribution Width 13.2 % (12.1-15.1); White Blood Count 6.7 10^3/uL (4.0-10.0)
[2020-10-10 05:10] LABS: Alanine Aminotransferase 27 U/L (0-33); Albumin Level 4.1 g/dL (3.5-5.2); Alkaline Phosphatase 122 IU/L (35-105); Anion Gap 13.2 (5-19); Aspartate Amino Transferase 30 U/L (0-32); Blood Urea Nitrogen 15 mg/dL (8-23); Calcium 8.8 mg/dL (8.5-10.5); Carbon Dioxide 23 mmol/L (22-29); Chloride 105 mmol/L (98-107); Globulin 3.2 g/dL (1.3-4.6); Glomerular Filtration Rate 72.4 mL/min (90-130); Glucose 221 mg/dL (65-115); Osmolality Calculated 292 mOsm/kg (285-295); Potassium 4.2 mmol/L (3.5-5.1); Sodium 137 mmol/L (136-145); Total Bilirubin 0.2 mg/dL (0.15-1.2); Total Protein 7.3 g/dL (6.6-8.7)
[2020-10-10 06:57] LABS: Glucose Point of Care 199 mg/dL (70-110)
[2020-10-10] MEDS: topiramate 100 mg Tablet PO ×2 (08:20→20:53)
[2020-10-10] MEDS: pregabalin 75 mg Capsule PO ×2 (08:20→20:50)
[2020-10-10] MEDS: metoprolol succinate ER (24 HR) 50 mg Tablet 12.5 MG PO (08:21)
[2020-10-10] MEDS: cyclobenzaprine 10 mg Tablet 5 MG PO ×2 (08:22→17:34)
[2020-10-10] MEDS: aspirin 81 mg EC Tablet PO (08:22)
[2020-10-10] MEDS: docusate sodium 100 mg Capsule PO ×2 (08:22→17:34)
[2020-10-10] MEDS: FUROsemide 40 mg Tablet PO ×2 (08:23→20:53)
[2020-10-10] MEDS: famotidine 20 mg Tablet PO ×2 (08:23→20:51)
[2020-10-10] MEDS: clopidogrel 75 mg Tablet PO (08:23)
[2020-10-10] MEDS: BuSPIRONE 10 mg Tablet 15 MG PO ×2 (08:23→20:51)
[2020-10-10] MEDS: buPROPion XL (24 HR) 300 mg Tablet PO (08:25)
[2020-10-10] MEDS: doxycycline 100 MG in sodium chloride 0.9% (plus) 100 ML IV (08:27)
[2020-10-10 11:17] LABS: Glucose Point of Care 312 mg/dL (70-110)
--- NOTE | 2020-10-10 11:58 | ECG_ITS ---
[facility] Test Date: 2020-10-10 Pat Name: Lin Henao Department: Room: 102 Gender: Female Mail Order Biller: : 1955 Requested By: Asher Correa Order Number: [id number] Tylor MD: Shahana Hernandez M.D. Measurements Intervals Spencer Rate: 154 P: 269 IL: 180 QRS: -19 QRSD: 105 T: -22 QT: 248 QTc: 397 Interpretive Statements POSSIBLE ATRIAL FLUTTER WITH RVR NONSPECIFIC ST & T-WAVE ABNORMALITY ABNORMAL RHYTHM ECG Compared to ECG 10/09/2020 13:58:10 T-wave abnormality now present Indeterminate axis no longer present ST (T wave) deviation no longer present Electronically Signed On 10-11-2020 23:02:59 CDT by Shahana Hernandez M.D. [id number]
[2020-10-10] MEDS: metoprolol tartrate 25 mg Tablet PO (11:59)
--- NOTE | 2020-10-10 12:24 | PC.CHAP ---
Pastoral Care Encounter/Spiritual Assessment Type of Contact [] Declined ultrasound sonographer visit [] Patient/Family/Request visit [] Outpatient visit [] Follow-up visit [] Physician referral [] Code/Alert [x] Routine visit [] Staff referral [] Actively dying [] Patient sleeping [] Family support [] [] Out of room [] Palliative care [] [] Receiving care in room [] Pre-surgical visit [] Trauma [] Long length of stay [] ICU visit [] Other: Relational/Emotional Strength [x] Patient feels connected with others/family/visitors/staff [] Distress [] Loneliness/isolation [] Abandonment Spirituality of Patient [x] Person of Lilliam [x] Attends Yarsanism of their Lilliam [x] Believes in Prayer [x] Reads Bible or Religion materials [] There are Spiritual issues to be addressed Directional Drill Operator Interventions [x] Prayer [x] Active listening [x] Non-anxious presence [] Spiritual/emotional support [] Crisis/trauma care [] Spiritual counseling [] Bereavement support [] Provided bereavement packet [] Provided Bible/devotional materials [] Provided toy/stuffed animal, coloring book to patient or family member [] Provided Communion [] Anointing/Reading [] Salvation [x] Completed spiritual assessment [] Other: Impact on Illness or Injury [] Angry [] Fearful [] Anxious [] Often cries [] Exhaustion [] Unable to work [] Unable to attend uatsdin [] Unable to walk/stand [] Unable to read [] Unable to drive [] Unable to eat/drink [] Unable to sleep [] Unable to be with family [] Patient intubated [] Other: Summary Patient is a pleasant lady whose life is changing due to medical circumstances. She may require rehab and walker for a few weeks but she expects to recover fully eventually. Time spent with patient 5 minutes
--- NOTE | 2020-10-10 12:28 | PC.CHAP ---
Pastoral Care Encounter/Spiritual Assessment Type of Contact [] Declined whizzer visit [] Patient/Family/Request visit [] Outpatient visit [] Follow-up visit [] Physician referral [] Code/Alert [x] Routine visit [] Staff referral [] Actively dying [] Patient sleeping [] Family support [] [] Out of room [] Palliative care [] [] Receiving care in room [] Pre-surgical visit [] Trauma [] Long length of stay [] ICU visit [] Other: Relational/Emotional Strength [x] Patient feels connected with others/family/visitors/staff [] Distress [] Loneliness/isolation [] Abandonment Spirituality of Patient [x] Person of Lilliam [x] Attends Druze of their Lilliam [x] Believes in Prayer [x] Reads Bible or Voodoo materials [] There are Spiritual issues to be addressed Assurance Engineer Interventions [x] Prayer [x] Active listening [x] Non-anxious presence [x] Spiritual/emotional support [] Crisis/trauma care [] Spiritual counseling [] Bereavement support [] Provided bereavement packet [] Provided Bible/devotional materials [] Provided toy/stuffed animal, coloring book to patient or family member [] Provided Communion [] Anointing/[place] [] Salvation [x] Completed spiritual assessment [] Other: Impact on Illness or Injury [] Angry [] Fearful [] Anxious [] Often cries [] Exhaustion [] Unable to work [] Unable to attend gnosticist [] Unable to walk/stand [] Unable to read [] Unable to drive [] Unable to eat/drink [] Unable to sleep [] Unable to be with family [] Patient intubated [] Other: Summary Patient requested prayer for salvation for her children; for angiogram to be done later and for her dog at home. Time spent with patient 8 minutes
--- NOTE | 2020-10-10 12:31 | PC.CHAP ---
Pastoral Care Encounter/Spiritual Assessment Type of Contact [] Declined furniture upholsterer visit [] Patient/Family/Request visit [] Outpatient visit [] Follow-up visit [] Physician referral [xx] Code/Alert [] Routine visit [] Staff referral [] Actively dying [] Patient sleeping [] Family support [] [] Out of room [] Palliative care [] [] Receiving care in room [] Pre-surgical visit [] Trauma [] Long length of stay [] ICU visit [] Other: Relational/Emotional Strength [] Patient feels connected with others/family/visitors/staff [] Distress [] Loneliness/isolation [] Abandonment Spirituality of Patient [] Person of Lilliam [] Attends Religion of their Lilliam [] Believes in Prayer [] Reads Bible or Latter-Day materials [] There are Spiritual issues to be addressed Network Technology Instructor Interventions [] Prayer [] Active listening [] Non-anxious presence [] Spiritual/emotional support [] Crisis/trauma care [] Spiritual counseling [] Bereavement support [] Provided bereavement packet [] Provided Bible/devotional materials [] Provided toy/stuffed animal, coloring book to patient or family member [] Provided Communion [] Anointing/[place] [] Salvation [] Completed spiritual assessment [] Other: Impact on Illness or Injury [] Angry [] Fearful [] Anxious [] Often cries [] Exhaustion [] Unable to work [] Unable to attend shinto [] Unable to walk/stand [] Unable to read [] Unable to drive [] Unable to eat/drink [] Unable to sleep [] Unable to be with family [] Patient intubated [] Other: Summary Patient had a rapid response alert due to possible heart attack. Network Technology Instructor returned to her room, prayed for her after staff completed their functions and visited with her for several more minutes. Patient is feeling much better and gave God praise that she was in hospital and not at home when her heart malfunctioned. Time spent with patient 20 minutes
[2020-10-10 12:38] LABS: Alanine Aminotransferase 24 U/L (0-33); Albumin Level 4.2 g/dL (3.5-5.2); Alkaline Phosphatase 122 IU/L (35-105); Anion Gap 18.4 (5-19); Aspartate Amino Transferase 25 U/L (0-32); Blood Urea Nitrogen 13 mg/dL (8-23); Calcium 8.7 mg/dL (8.5-10.5); Carbon Dioxide 18 mmol/L (22-29); Chloride 105 mmol/L (98-107); Globulin 2.9 g/dL (1.3-4.6); Glucose 329 mg/dL (65-115); Magnesium 2.1 mg/dL (1.7-2.3); Osmolality Calculated 297 mOsm/kg (285-295); Potassium 4.4 mmol/L (3.5-5.1); Sodium 137 mmol/L (136-145); Total Bilirubin 0.2 mg/dL (0.15-1.2); Total Protein 7.1 g/dL (6.6-8.7)
[2020-10-10 12:39] LABS: Troponin T (5th) Once 8 ng/L (0-10)
--- NOTE | 2020-10-10 13:07 | P.PN_ITS ---
Subjective Subjective: Interval history: Patient has afib with RVR. Had an episode where heart rate almost went up to 200. Resolved spontaneously Vitals/I&O/Wt Last Vital Signs Temp 97.8 F 10/10/20 12:00 Pulse 104 H 10/10/20 12:00 Resp 21 H 10/10/20 12:00 BP 97/73 10/10/20 12:00 Pulse Ox 92 10/10/20 12:00 10/09/20 10/10/20 10/10/20 22:59 06:59 14:59 Intake Total 100 / 100 340 / 340 Output Total 350 / 350 400 / 750 Balance -250 / -250 -400 / -650 340 / 340 Weight last 48 hrs Weight 244 lb 14.4 oz Weight 240 lb Physical Exam Narrative: EXAM NARRATIVE: GENERAL: Patient is alert, awake and oriented x3. [] NECK: No jugular vein distension. [] HEENT: No cyanosis. No icterus. No pallor. [] HEART: irregularly irregular,S1 and S2. No murmur, rub or gallop. [] LUNGS: Clear to auscultate bilaterally. [] ABDOMEN: Soft, nontender and nondistended. Positive bowel sounds. No guarding, rebound or tenderness. [] CENTRAL NERVOUS SYSTEM: Grossly nonfocal. [] EXTREMITIES: Lower extremities with no edema bilaterally. Pulses palpable in the lower extremities, both dorsalis pedis and posterior tibial. [] Data : 10/10/20 04:00 10/10/20 11:58 Micro: Microbiology 10/09/20 15:25 Urine Culture - Preliminary Urine,Clean Catch Gram Negative Rods 10/09/20 20:53 Gram Stain - Final Sputum - Expectorated Sputum A&P Assessment and plan (1) Paroxysmal A-fib: (2) NONA (obstructive sleep apnea): (3) Hyperlipemia: Qualifiers: Hyperlipidemia type: mixed hyperlipidemia Qualified Code(s): E78.2 - Mixed hyperlipidemia (4) Diabetes mellitus type 2 in obese: (5) Hypertension, benign: (6) Chest pain: Status: Acute Qualifiers: Chest pain type: unspecified Qualified Code(s): R07.9 - Chest pain, unspecified Patient had a recent admission to hospital with chest pain. On her last admission nuclear stress test was abnormal which showed partially reversible perfusion defect in apical and apical inferior forbes. Medical therapy was done at that time. However she has come back with chest discomfort. Troponins are not significantly elevated. Had a discussion with patient that given her multiple admissions with chest discomfort, we will proceed with coronary angiogram. Justineeugeniaabhijit maya. Can put her on Lovenox. Once heart rate is better controlled and bronchitis resolves, can plan on left heart cath possibly on Tuesday or Tuesday. Thank you for involving us with care of this patient. We will continue to follow. Please call with questions. Attestations Medical Necessity Statement*: Care expected to cross 2 midnights. Coding Level of Care Code Acute Wholesale Loan Processor for Chg Fwd Diagnoses Paroxysmal A-fib I48.0 NONA (obstructive sleep apnea) G47.33 Hyperlipemia E78.2 Hyperlipidemia type: mixed hyperlipidemia Diabetes mellitus type 2 in obese E11.69; E66.9 Hypertension, benign I10 Chest pain R07.9 Chest pain type: unspecified
--- NOTE | 2020-10-10 15:25 | PC.RESP ---
Smoking Cessation and Pulmonary Rehab information sent to patient.
[2020-10-10 16:18] LABS: Glucose Point of Care 125 mg/dL (70-110)
[2020-10-10] MEDS: oxybutynin chloride XL 5 MG TABLET 15 MG PO (17:34)
[2020-10-10] MEDS: nicotine 21 mg Patch 1 PATCH TRANSDERMA (17:35)
[2020-10-10 20:17] LABS: Glucose Point of Care 161 mg/dL (70-110)
--- NOTE | 2020-10-10 20:28 | PC.NURSE ---
at approx 1140 pt noted to be in svt at rate of 200 ,on monitor at nurses station.when staff arrived to room, pt was in bed eating lunch.states i feel a little dizzy . denied cp.no diaphoresis noted.bp 130/98.rapid response was called,as was dr miguel,while emergency cart was brought to bedside.pads applied to pts chest and back.initially adenosine was pulled and set to be given,but pt's hr decreased to 140's (afib)..and metoprolol 5 mg given iv instead, as ordered.hr decreased to 120's.pt states i feel so much better ...and resumed eating lunch.metoprolol 25 mg given po as ordered.
--- NOTE | 2020-10-10 20:40 | P.PN_ITS ---
Subjective Subjective: Interval history: This morning upper response was called due to heart rates 180s-200 SVT. She was eating lunch at the time. Denied feeling chest pain. Not short of breath. Mild response to vagal maneuvers. On slowed rate appear to have atrial fibrillation with RVR. Subsequently responded to 5 mg IV metoprolol, oral additional dose of metoprolol 25 mg, with transition to 50 mg twice daily. Vitals/I&O/Wt Last Vital Signs Temp 98.4 F 10/10/20 19:13 Pulse 108 H 10/10/20 19:13 Resp 21 H 10/10/20 19:13 BP 113/47 10/10/20 19:13 Pulse Ox 97 10/10/20 19:13 10/10/20 10/10/20 10/10/20 06:59 14:59 22:59 Intake Total 340 / 340 360 / 700 Output Total 400 / 750 1000 / 1000 Balance -400 / -650 340 / 340 -640 / -300 Weight last 48 hrs Weight 111.085 kg Weight 108.862 kg Physical Exam Const: COMMON NORMALS: no acute distress, patient oriented x3 and alert GENERAL APPEARANCE: cooperative NUTRITIONAL APPEARANCE: obese ORIENTATION/CONSCIOUSNESS: Yes awake HENMT: COMMON NORMALS: oropharynx normal TEETH & GINGIVA: Yes edentulous Neck/C-Spine: COMMON NORMALS: no JVD Resp: COMMON NORMALS: normal respiratory effort and clear to auscultation bilaterally AUSCULTATION: clear to auscultation bilaterally, rhonchi, wheezes and diminished lung sounds Cardio: COMMON NORMALS: no JVD, regular rhythm, S1 normal heart sound present, S2 normal heart sound present and No murmurs present (Cardio) RHYTHM: regular rhythm HEART SOUNDS: S1 normal heart sound present and S2 normal heart sound present GI: COMMON NORMALS: Normal to inspection, nondistended, normoactive bowel sounds present, Soft to palpation and non-tender PALPATION: Yes Soft to palpation Extremity: COMMON NORMALS: no joint enlargement and no pedal edema OTHER: Hemosiderosis, old scarring/atrophy on distal lower extremities above ankles Neuro: COMMON NORMALS: patient oriented x3 and moves all extremities SENSORIUM/ORIENTATION: Yes alert Skin: COMMON NORMALS: no rashes or lesions noted GENERAL SKIN EXAM: no rashes or lesions noted and dry skin Data : 10/10/20 04:00 10/10/20 11:58 Micro: Microbiology 10/09/20 15:25 Urine Culture - Preliminary Urine,Clean Catch Gram Negative Rods 10/09/20 20:53 Gram Stain - Final Sputum - Expectorated Sputum A&P Assessment and plan (1) Paroxysmal atrial fibrillation with RVR: Last night hypotensive, metoprolol dose was decreased. This morning was doing well, then suddenly went into SVT 180-200. Partial response to vagal maneuvers, with slow heart rate noted A. fib with RVR. Responded to 5 mg IV metoprolol, additional dose 25 mg oral metoprolol given subsequently with good control of heart rate. With other antihypertensives held, metoprolol resumed at her usual dose 50 mg twice daily. Appreciate cardiology recommendations, started on therapeutic Lovenox. Pending additional assessment of progression of coronary disease. Possible UA. Status: Acute (2) Chest pain: Possible unstable angina, pending additional assessment with coronary angiography. Optimize heart rate control as above. Recently abnormal stress test. Multiple risk factors for CAD including active smoking. Continue cardiac medications. Imdur for now held due to hypotension. Has had recently assessed TTE. Status: Acute Qualifiers: Chest pain type: unspecified Qualified Code(s): R07.9 - Chest pain, unspecified (3) COPD exacerbation: Showing improvement, today improved wheezing, better air entry. We will cut down on steroid dose to 40 mg 3 times daily. Sputum culture unrevealing. Change antibiotic to Levaquin due to also having UTI. Breathing treatments. Oxygen support as needed. Status: Acute (4) Smoking addiction: Discussed smoking cessation with her for 4 minutes. She is aware she needs to quit due to multiple risk factors. She has been cutting down and is down to less than a pack a day, which she says is the least that she has ever smoked. She will continue trying. She requests for a nicotine patch which will start for her. Status: Acute (5) UTI (urinary tract infection): Gram-negative rods. Change antibiotic to Levaquin. Follow-up culture. Status: Acute Additional A&P Information Hypotension: Blood pressure down into the 80s last night. Held her antihypertensives, decreased metoprolol dose, however, today SVT, A. fib with RVR, continue to hold antihypertensives, Imdur, increase metoprolol back to 50 mg twice daily. Monitor blood pressure. NONA: Continue CPAP DM2: Insulin sliding scale HLD GERD Panic disorder Fibromyalgia Chronic pain RLS Other chronic conditions noted. Attestations 2 Medical Necessity Statement*: Continue admission for assessment management of chest pain, with abnormal stress test, suspected progress coronary disease, possible unstable angina, optimization of control of arrhythmia, A. fib with RVR, in the setting of soft blood pressures, treatment of COPD exacerbation, UTI. Coding Level of Care Code Acute Laborer Construction Or Leak Gang for [facility] Fwd Diagnoses Paroxysmal atrial fibrillation with RVR I48.0 Chest pain R07.9 Chest pain type: unspecified COPD exacerbation J44.1 Smoking addiction F17.200 UTI (urinary tract infection) N39.0
[2020-10-10] MEDS: ropinirole 1 mg Tablet 1.5 MG PO (20:49)
[2020-10-10] MEDS: gemfibrozil 600 mg Tablet PO (20:50)
[2020-10-10] MEDS: metoprolol tartrate 50 mg Tablet PO (20:50)
[2020-10-10] MEDS: cyclobenzaprine 10 mg Tablet PO (20:52)
[2020-10-10] MEDS: duloxetine 60 mg Capsule PO (20:52)
[2020-10-10] MEDS: amitriptyline 25 mg Tablet 100 MG PO (20:58)
[2020-10-10] MEDS: levofloxacin-dextrose 5 % 750 MG/150 ML PREMIX 100 MG IV (21:05)
[2020-10-10] MEDS: enoxaparin 120 mg/0.8 mL Syringe 110 MG SUBCUT (21:10)
[2020-10-11] VITALS (17 sets, daily range): BP systolic 100–133; BP diastolic 59–85; PULSE 79–111; RESP 15–25; TEMP 36.5–36.7; O2SAT 92–98
[2020-10-11] MEDS: ipratropium-albuterol 3 mL Neb INHALATION ×4 (02:55→20:30)
[2020-10-11 05:18] LABS: Basophils % 0.2 %; Eosinophils % 0.1 %; Hematocrit 42.1 % (37.0-47.0); Hemoglobin 13.2 g/dL (11.5-15.3); Lymphocytes # 2.4 10^3/uL (0.8-4.8); Lymphocytes % 22.2 %; Mean Corpuscular HGB Conc 31.4 g/dL (30.0-36.0); Mean Corpuscular Hemoglobin 30.2 pg (28.0-34.0); Mean Corpuscular Volume 96.3 fL (81-99); Mean Platelet Volume 11.9 fL (7.4-10.4); Monocytes # 0.4 10^3/uL (0.2-0.9); Monocytes % 3.5 %; Neutrophils # 8.11 10^3/uL (1.8-7.7); Neutrophils % 73.6 %; Nucleated Red Blood Cells % 0 %; Platelet Count 217 10^3/cmm (130-400); Red Blood Count 4.37 10^6/uL (4.1-5.3); Red Cell Distribution Width 13.2 % (12.1-15.1)
[2020-10-11 05:47] LABS: Alanine Aminotransferase 20 U/L (0-33); Albumin Level 3.6 g/dL (3.5-5.2); Alkaline Phosphatase 107 IU/L (35-105); Anion Gap 15.4 (5-19); Aspartate Amino Transferase 19 U/L (0-32); Blood Urea Nitrogen 21 mg/dL (8-23); Calcium 8.5 mg/dL (8.5-10.5); Carbon Dioxide 21 mmol/L (22-29); Chloride 104 mmol/L (98-107); Globulin 3.2 g/dL (1.3-4.6); Glucose 213 mg/dL (65-115); Osmolality Calculated 291 mOsm/kg (285-295); Potassium 4.4 mmol/L (3.5-5.1); Sodium 136 mmol/L (136-145); Total Bilirubin 0.2 mg/dL (0.15-1.2); Total Protein 6.8 g/dL (6.6-8.7)
[2020-10-11 06:53] LABS: Glucose Point of Care 183 mg/dL (70-110)
[2020-10-11] MEDS: cyclobenzaprine 10 mg Tablet 5 MG PO ×2 (07:36→14:58)
[2020-10-11] MEDS: docusate sodium 100 mg Capsule PO ×2 (07:37→14:59)
[2020-10-11] MEDS: aspirin 81 mg EC Tablet PO (07:37)
[2020-10-11] MEDS: BuSPIRONE 10 mg Tablet 15 MG PO ×2 (07:37→19:18)
[2020-10-11] MEDS: topiramate 100 mg Tablet PO ×3 (07:37→19:24)
[2020-10-11] MEDS: clopidogrel 75 mg Tablet PO (07:37)
[2020-10-11] MEDS: pregabalin 75 mg Capsule PO ×2 (07:37→19:19)
[2020-10-11] MEDS: FUROsemide 40 mg Tablet PO ×2 (07:37→19:20)
[2020-10-11] MEDS: famotidine 20 mg Tablet PO ×2 (07:37→19:21)
[2020-10-11] MEDS: buPROPion XL (24 HR) 300 mg Tablet PO (08:40)
[2020-10-11] MEDS: enoxaparin 120 mg/0.8 mL Syringe 110 MG SUBCUT ×2 (08:41→20:51)
[2020-10-11] MEDS: metoprolol tartrate 50 mg Tablet PO (09:02)
--- NOTE | 2020-10-11 10:39 | P.PN_ITS ---
Subjective Subjective: Interval history: Patient feeling better. Heart rate is better Vitals/I&O/Wt Last Vital Signs Temp 97.9 F 10/11/20 07:25 Pulse 96 10/11/20 08:57 Resp 16 10/11/20 08:51 BP 100/59 10/11/20 07:25 Pulse Ox 98 10/11/20 08:51 10/10/20 10/11/20 10/11/20 22:59 06:59 14:59 Intake Total 660 / 1000 480 / 480 Output Total 1000 / 1000 1500 / 2500 500 / 500 Balance -340 / 0 -1500 / -1500 -20 / -20 Weight last 48 hrs Weight 248 lb Weight 244 lb 14.4 oz Weight 240 lb Physical Exam Narrative: EXAM NARRATIVE: GENERAL: Patient is alert, awake and oriented x3. [] NECK: No jugular vein distension. [] HEENT: No cyanosis. No icterus. No pallor. [] HEART: irregularly irregular,S1 and S2. No murmur, rub or gallop. [] LUNGS: Clear to auscultate bilaterally. [] ABDOMEN: Soft, nontender and nondistended. Positive bowel sounds. No guarding, rebound or tenderness. [] CENTRAL NERVOUS SYSTEM: Grossly nonfocal. [] EXTREMITIES: Lower extremities with no edema bilaterally. Pulses palpable in the lower extremities, both dorsalis pedis and posterior tibial. [] Data : 10/12/20 04:44 10/12/20 04:44 Micro: Microbiology 10/09/20 15:25 Urine Culture - Final Urine,Clean Catch Escherichia coli esbl 10/09/20 20:53 Gram Stain - Final Sputum - Expectorated Sputum A&P Assessment and plan (1) Paroxysmal A-fib: (2) NONA (obstructive sleep apnea): (3) Hyperlipemia: Qualifiers: Hyperlipidemia type: mixed hyperlipidemia Qualified Code(s): E78.2 - Mixed hyperlipidemia (4) Diabetes mellitus type 2 in obese: (5) Hypertension, benign: (6) Chest pain: Status: Acute Qualifiers: Chest pain type: unspecified Qualified Code(s): R07.9 - Chest pain, unspecified Patient had a recent admission to hospital with chest pain. On her last admission nuclear stress test was abnormal which showed partially reversible perfusion defect in apical and apical inferior forbes. Medical therapy was done at that time. However she has come back with chest discomfort. Troponins are not significantly elevated. Plan for left heart cath tomorrow. Can uptitrate metoprolol dose to 75mg BID if heart rate stays elevated. Thank you for involving us with care of this patient. We will continue to follow. Please call with questions. Attestations Medical Necessity Statement*: Care expected to cross 2 midnights. Coding Level of Care Code Acute Industrial Safety Engineer for Chg Fwd Diagnoses Paroxysmal A-fib I48.0 NONA (obstructive sleep apnea) G47.33 Hyperlipemia E78.2 Hyperlipidemia type: mixed hyperlipidemia Diabetes mellitus type 2 in obese E11.69; E66.9 Hypertension, benign I10 Chest pain R07.9 Chest pain type: unspecified
[2020-10-11 11:08] LABS: Glucose Point of Care 186 mg/dL (70-110)
[2020-10-11] MEDS: oxybutynin chloride XL 5 MG TABLET 15 MG PO (15:11)
[2020-10-11] MEDS: nicotine 21 mg Patch 1 PATCH TRANSDERMA (17:21)
--- NOTE | 2020-10-11 18:12 | PM.PN ---
Subjective Subjective: Interval history: She is doing alright, but does feel her heart palpitating and having mild chest discomfort, saying she does not need to look at the monitor to know when her heart rate gets higher. She is coughing, still bringing up some phlegm. Vitals/I&O/Wt Last Vital Signs Temp 97.7 F 10/11/20 15:06 Pulse 107 H 10/11/20 15:06 Resp 23 H 10/11/20 15:06 BP 114/82 10/11/20 15:06 Pulse Ox 94 10/11/20 15:06 10/11/20 10/11/20 10/11/20 06:59 14:59 22:59 Intake Total 720 / 720 240 / 960 Output Total 1500 / 2500 500 / 500 800 / 1300 Balance -1500 / -1500 220 / 220 -560 / -340 Weight last 48 hrs Weight 112.491 kg Weight 111.085 kg Physical Exam Const: COMMON NORMALS: no acute distress, patient oriented x3 and alert GENERAL APPEARANCE: cooperative NUTRITIONAL APPEARANCE: obese ORIENTATION/CONSCIOUSNESS: Yes awake HENMT: COMMON NORMALS: oropharynx normal TEETH & GINGIVA: Yes edentulous Neck/C-Spine: COMMON NORMALS: no JVD Resp: COMMON NORMALS: normal respiratory effort and clear to auscultation bilaterally AUSCULTATION: clear to auscultation bilaterally, rhonchi, wheezes and diminished lung sounds Cardio: COMMON NORMALS: no JVD, S1 normal heart sound present, S2 normal heart sound present and No murmurs present (Cardio) RATE: tachycardic RHYTHM: abnormal rhythm irregularly irregular HEART SOUNDS: S1 normal heart sound present and S2 normal heart sound present GI: COMMON NORMALS: Normal to inspection, nondistended, normoactive bowel sounds present, Soft to palpation and non-tender PALPATION: Yes Soft to palpation Extremity: COMMON NORMALS: no joint enlargement and no pedal edema OTHER: Hemosiderosis, old scarring/atrophy on distal lower extremities above ankles Neuro: COMMON NORMALS: patient oriented x3 and moves all extremities SENSORIUM/ORIENTATION: Yes alert Skin: COMMON NORMALS: no rashes or lesions noted GENERAL SKIN EXAM: no rashes or lesions noted and dry skin Data : 10/11/20 04:48 10/11/20 04:48 Micro: Microbiology 10/09/20 20:53 Gram Stain - Final Sputum - Expectorated Sputum Sputum Culture - Preliminary 10/09/20 15:25 Urine Culture - Final Urine,Clean Catch Escherichia coli esbl A&P Assessment and plan (1) Paroxysmal atrial fibrillation with RVR: Heart rate worse this afternoon, 110, A. fib with RVR, she is having symptoms, palpitations, mild chest discomfort. Discussed with cardiology and with her, blood pressure soft 114/82, although digoxin likely not a good choice in this case. Per discussion increase metoprolol to 75 mg twice daily. Monitor blood pressure. Therapeutic Lovenox. Pending additional assessment of progression of coronary disease, possible UA. Status: Acute (2) Chest pain: Possible unstable angina, pending additional assessment with coronary angiography. Optimize heart rate control as above. Angiography tentatively planned for tomorrow. N.p.o. after midnight. Recently abnormal stress test. Multiple risk factors for CAD including active smoking. Continue cardiac medications. Imdur for now held due to hypotension. Has had recently assessed TTE. Status: Acute Qualifiers: Chest pain type: unspecified Qualified Code(s): R07.9 - Chest pain, unspecified (3) COPD exacerbation: Wheezing worse today, increase steroids back up to 40 mg every 6 hours. Continue breathing treatments. Sputum culture unrevealing. Change antibiotic again from Levaquin to Primaxin due to ESBL E. coli UTI. Breathing treatments. Oxygen support as needed. Status: Acute (4) Smoking addiction: Continue to encourage cessation. Nicotine replacement. Status: Acute (5) UTI (urinary tract infection): Change antibiotic again from Levaquin to Primaxin due to noted ESBL E. coli UTI. Status: Acute Additional A&P Information Hypotension: Improved, antihypertensives on hold, blood pressure soft, carefully optimizing control of A. fib with RVR, increase metoprolol to 75 mg twice daily. Monitor blood pressure. Hold ARB, Imdur, spironolactone for now. NONA: Continue CPAP DM2: Insulin sliding scale HLD GERD Panic disorder Fibromyalgia Chronic pain RLS Other chronic conditions noted. Attestations Medical Necessity Statement*: Continue admission for optimization of control of A. fib with RVR, pending additional assessment of CAD with possible UA with coronary angiography, treatment of ESBL E. coli UTI. Coding Level of Care Code Acute Banking Management Consulting Manager for [facility] Fwd Diagnoses Paroxysmal atrial fibrillation with RVR I48.0 Chest pain R07.9 Chest pain type: unspecified COPD exacerbation J44.1 Smoking addiction F17.200 UTI (urinary tract infection) N39.0
[2020-10-11] MEDS: cyclobenzaprine 10 mg Tablet PO (19:16)
[2020-10-11] MEDS: gemfibrozil 600 mg Tablet PO (19:17)
[2020-10-11] MEDS: ropinirole 1 mg Tablet 1.5 MG PO (19:17)
[2020-10-11] MEDS: amitriptyline 25 mg Tablet 100 MG PO (19:20)
[2020-10-11] MEDS: duloxetine 60 mg Capsule PO (19:21)
[2020-10-11 20:11] LABS: Glucose Point of Care 263 mg/dL (70-110)
[2020-10-11] MEDS: metoprolol tartrate 50 mg Tablet 75 MG PO (20:50)
[2020-10-12] VITALS (15 sets, daily range): BP systolic 101–126; BP diastolic 66–88; PULSE 75–101; RESP 16–28; TEMP 36.6–36.9; O2SAT 93–98
[2020-10-12] MEDS: ipratropium-albuterol 3 mL Neb INHALATION ×2 (02:52→09:41)
[2020-10-12 05:27] LABS: Basophils % 0.1 %; Hematocrit 38.8 % (37.0-47.0); Hemoglobin 12.4 g/dL (11.5-15.3); Lymphocytes # 2.7 10^3/uL (0.8-4.8); Lymphocytes % 19.9 %; Mean Corpuscular Hemoglobin 30.2 pg (28.0-34.0); Mean Corpuscular Volume 94.4 fL (81-99); Monocytes # 0.5 10^3/uL (0.2-0.9); Monocytes % 3.6 %; Neutrophils # 10.48 10^3/uL (1.8-7.7); Nucleated Red Blood Cells % 0 %; Platelet Count 218 10^3/cmm (130-400); Red Blood Count 4.11 10^6/uL (4.1-5.3); Red Cell Distribution Width 13.4 % (12.1-15.1); White Blood Count 13.8 10^3/uL (4.0-10.0)
[2020-10-12 05:50] LABS: Alanine Aminotransferase 17 U/L (0-33); Albumin Level 3.6 g/dL (3.5-5.2); Alkaline Phosphatase 105 IU/L (35-105); Anion Gap 14.2 (5-19); Aspartate Amino Transferase 17 U/L (0-32); Blood Urea Nitrogen 19 mg/dL (8-23); Calcium 8.6 mg/dL (8.5-10.5); Carbon Dioxide 23 mmol/L (22-29); Chloride 108 mmol/L (98-107); Globulin 3.1 g/dL (1.3-4.6); Glucose 191 mg/dL (65-115); Osmolality Calculated 299 mOsm/kg (285-295); Potassium 4.2 mmol/L (3.5-5.1); Sodium 141 mmol/L (136-145); Total Bilirubin 0.3 mg/dL (0.15-1.2); Total Protein 6.7 g/dL (6.6-8.7)
[2020-10-12 06:39] LABS: Glucose Point of Care 185 mg/dL (70-110)
[2020-10-12] MEDS: diphenhydrAMINE 50 mg Capsule PO (06:50)
[2020-10-12] MEDS: sodium chloride 0.9% 1,000 ML 50 ML IV (06:51)
--- NOTE | 2020-10-12 07:34 | XACV_ITS ---
Exam Room: [facility] Ht: 163 cm Wt: 112 kg BSA: 2.31 m2 Gender: Female : 1955 Any Known Allergies: Other Exam Priority: Routine Procedure(s): Procedure Description: Diagnostic procedure Procedure Description: Left ventriculography Procedure Description: Coronary Angiography Diagnostic Cath Status: Elective Diagnostic Findings * No significant disease noted in the Left Main, Left Anterior Descending, Right, or Circumflex coronary arteries. * Coronary angiography shows right dominance. PCI Status: Elective Conclusions 1. No significant disease noted in the Left Main, Left Anterior Descending, Right, or Circumflex coronary arteries. 2. Normal left ventricular systolic function. Ejection fraction of 55%. Recommendations * Aggressive risk factor modification. * If chest pain persists,can add Imdur. * Outpatient cardiology follow up in 4 weeks. Diagnostic RX Recommendation: medical therapy and/or counseling Anticoagulation: Heparin Ventriculography Ejection Fraction: 55.0 % Pressures Phase:Rest AO : 124 / 79 ( 97 ) @ 7:31:00 AM 126 / 82 ( 98 ) @ 7:31:00 AM LV : 131 / 0 / 26 @ 7:30:00 AM 138 / 2 / 29 @ 7:31:00 AM Valves Phase:DefaultPhase AV : 13.0 @ 8:42:31 AM 13.0 @ 8:42:31 AM AV Mean Gradient: 12.0 @ 8:42:31 AM Clinical Evaluation EBL: 5mL-10mL Procedural Details Procedure Consent Obtained. Pre-Procedure Time Out. Identified patient by full name and date of as verbalized by the patient/guarantor. Does the consent match the physician's order: Yes. Accurate & Complete Informed Consent: Yes. Inpatient/Outpatient History & Physical on Chart: Yes. If H&P is completed, is and addenduem needed: No; If yes, is the addendum complete: N/A. Visualize and Verify Site with Patient/Guarantor: N/A. Relevant Radiology Images available: Yes. Pre-op teaching completed and patient verbalized understanding. The risks, benefits, and alternatives of sedation and/or procedure were discussed by physician. The patient agrees to continue. Procedure started. Correct patient, site and procedure confirmed by cath team. Current diagnosis: Chest Pain. PERRLA. Strong, equal hand roll tension tester bilaterally. Lungs clear x 5 lobes. IV Site on Arrival: 18 gauge in the left forearm. IV Fluids: 0.9% NaCl at KVO. 0 mL infused prior to lab support service tech. Pre Procedural Pulses: bilateral dorsalis pedis was 2+. Pre Procedural Pulses: bilateral posterior tibial was 2+. Pre Procedural Pulses: bilateral radial was 2+. Oxygen started at 2liters/min via nasal canula. bilateral groins was prepped with chloroprep then draped in the usual sterile fashion. right radial was prepped with chloroprep then draped in the usual sterile fashion. Physician notified. Baseline sample Acquired. HR: 118 BPM. Equipment: 6F - Radial. Cardiac Cath Pack. ACIST Manifold Kit Model BT 2000. Heparinized Saline (2 units/mL), 1000 mL bag. Physician arrived. Physician scrubbed in. Immediate Pre-Procedure Time Out. Correct Patient: Yes; Correct Procedure: Yes; Correct Site: Yes; Correct Patient Position: Yes; Correct Supplies: Yes; Dried Flammable Prep: Yes; Blood Products Available: No;. Lidocaine 1% infiltrated to the right radial. Arterial access obtained. A 5 moldovan TIG catheter in over wire. Multiple views taken of left coronary artery. Catheter redirected to the RCA. Multiple views taken of right coronary artery. Catheter out. Catheter out. A 5 moldovan Angled Pig catheter in over wire. EDP Sample taken: LV 131/0,26; HR: 105 BPM; SpO2: 96%. LV gram performed in SIMMONS @ 10 mL/second for a total of 30 mL. EDP Sample taken: LV Off; HR: 96 BPM; SpO2: 97%. Pullback taken: LV 138/2,29; AO 124/79(97); Mean: 12mmHg, Peak to Peak: 13mmHg, SEP: 24sec/min; HR: 103 BPM; SpO2: 96%. Catheter out. TR band placed. Hemostasis obtained. A TR Band was successful obtaining hemostatsis at the Right Radial artery insertion site. Post Procedure: Pulses reassessed and unchanged. PERRLA. Strong, equal hand roll tension tester bilaterally. No VTE prophylaxis required. Medication's Wasted: Lidocaine 1% = 18 mL. Medication's Wasted: Heparin = 1000 units. Medication's Wasted: Nitro = 49.8 mg. Medication's Wasted: Other = Fentanyl 50mcg. Total IV fluids: 50 mL. Contrast type used: Omnipaque 300 mgI/mL, 500 mL bottle. Post-op diagnosis: Obstructive CAD. Complications: None. Estimated blood loss: 5mL-10mL. Procedure completed. Patient transferred by bed to 1st floor. Vital chart was stopped. Vital chart was stopped. Access Site Site: Right Radial artery Sheath Size: 6 Fr Hemostasis Method: TR Band Hemostasis Success: Successful Procedure Medications Start: 8:09 AM Stop: 8:09 AM Medication: Versed 1 mg and Fentanyl 25 mcg Amount: 1 Route: I.V. Start: 8:15 AM Stop: 8:15 AM Medication: Versed Amount: 1 mg Route: I.V. Start: 8:20 AM Stop: 8:20 AM Medication: Nitrogylcerin Amount: 200 mcg Route: I.A. Start: 8:21 AM Stop: 8:21 AM Medication: Fentanyl Amount: 25 mcg Route: I.V. Start: 8:22 AM Stop: 8:22 AM Medication: Heparin Amount: 5000 units Route: I.V. I, the attending physician, have reviewed and verified all procedure medications. Yes, all medications given per verbal order History/Risk Factors Hypertension: Yes Dyslipidemia: No Peripheral Arterial Disease (PAD): Yes Myocardial Infarction (MO): No Obesity: Yes Renal Disease: No Tobacco Use: Current/Recent(w/in 1 year) Prior Interventions PCI: No CABG: No Valve Surgery: No Report Signatures Finalized by Kevon Ge MD on 10/13/2020 12:33 PM
[2020-10-12] MEDS: BuSPIRONE 10 mg Tablet 15 MG PO (07:47)
[2020-10-12] MEDS: famotidine 20 mg Tablet PO (07:47)
[2020-10-12] MEDS: clopidogrel 75 mg Tablet PO (07:47)
[2020-10-12] MEDS: pregabalin 75 mg Capsule PO (07:47)
[2020-10-12] MEDS: FUROsemide 40 mg Tablet PO (07:48)
[2020-10-12] MEDS: buPROPion XL (24 HR) 300 mg Tablet PO (07:48)
[2020-10-12] MEDS: docusate sodium 100 mg Capsule PO (07:48)
[2020-10-12] MEDS: aspirin 81 mg EC Tablet PO (07:48)
[2020-10-12] MEDS: cyclobenzaprine 10 mg Tablet 5 MG PO (07:48)
[2020-10-12] MEDS: topiramate 100 mg Tablet PO ×2 (07:48→11:42)
--- NOTE | 2020-10-12 07:53 | PC.NURSE ---
manager labor relations on unit to take patient for planned procedure taking patient via bed to manager labor relations
--- NOTE | 2020-10-12 08:07 | W.PM.OPSUD ---
Surgery/Procedure H&P Update DATE OF PROCEDURE: October 12, 2020 DATE H&P PERFORMED: 10/10/20 H&P UPDATE INFORMATION: I have reviewed H&P completed within last 30 days, I have examined patient prior to procedure and No changes to prior documentation PREOP DIAGNOSIS: Worsening angina/abnormal stress test PRIMARY INDICATION FOR PROCEDURE: Worsening angina/abnormal stress test PLANNED PROCEDURE: Operation Date: 10/12/20 08:00 Proposed Procedures p Cardiac Catheterization(Left) - Kevon Ge M.D Possible percutaneous coronary intervention PATIENT REASSESSED PRIOR TO SEDATION, WITH NO CHANGE NOTED: Yes PHYSICAL EXAM: alert, oriented x 3 and clear to auscultation bilaterally OTHER PERTINENT EXAM FINDINGS: Has mild wheezing, irregularly irregular heart rhythm AIRWAY EVAL/ANESTHESIA PLAN: ASA III, Monitored Anesthesia, Local Anesthesia, Risks, benefits & alternatives of sedation and/or procedure discussed and Patient agrees to continue as planned
--- NOTE | 2020-10-12 09:00 | PC.NURSE ---
pt wants bath tonight
[2020-10-12] MEDS: metoprolol tartrate 50 mg Tablet 100 MG PO (09:45)
--- NOTE | 2020-10-12 10:20 | PC.SOCIAL ---
IMM Update Pg. 2 of IMM updated and reviewed with patient, who verbalized understanding. Copy provided.
--- NOTE | 2020-10-12 10:24 | PM.PN ---
Subjective Subjective: Interval history: Patient underwent LHC today that showed non obstructive CAD. Elevate LVEDP. Vitals/I&O/Wt Last Vital Signs Temp 98.4 F 10/12/20 07:09 Pulse 93 10/12/20 09:45 Resp 28 H 10/12/20 09:45 BP 113/74 10/12/20 09:45 Pulse Ox 95 10/12/20 09:41 10/11/20 10/12/20 10/12/20 22:59 06:59 14:59 Intake Total 340 / 1060 100 / 1160 100 / 100 Output Total 1300 / 1800 500 / 2300 900 / 900 Balance -960 / -740 -400 / -1140 -800 / -800 Weight last 48 hrs Weight 248 lb 11.2 oz Weight 248 lb Physical Exam Narrative: EXAM NARRATIVE: GENERAL: Patient is alert, awake and oriented x3. [] NECK: No jugular vein distension. [] HEENT: No cyanosis. No icterus. No pallor. [] HEART: irregularly irregular,S1 and S2. No murmur, rub or gallop. [] LUNGS: Clear to auscultate bilaterally. [] ABDOMEN: Soft, nontender and nondistended. Positive bowel sounds. No guarding, rebound or tenderness. [] CENTRAL NERVOUS SYSTEM: Grossly nonfocal. [] EXTREMITIES: Lower extremities with no edema bilaterally. Pulses palpable in the lower extremities, both dorsalis pedis and posterior tibial. [] Data : 10/12/20 04:44 10/12/20 04:44 Micro: Microbiology 10/09/20 20:53 Gram Stain - Final Sputum - Expectorated Sputum Sputum Culture - Final 10/09/20 15:25 Urine Culture - Final Urine,Clean Catch Escherichia coli esbl A&P Assessment and plan (1) Paroxysmal A-fib: (2) NONA (obstructive sleep apnea): (3) Hyperlipemia: Qualifiers: Hyperlipidemia type: mixed hyperlipidemia Qualified Code(s): E78.2 - Mixed hyperlipidemia (4) Diabetes mellitus type 2 in obese: (5) Hypertension, benign: (6) Chest pain: Status: Acute Qualifiers: Chest pain type: unspecified Qualified Code(s): R07.9 - Chest pain, unspecified Patient had a recent admission to hospital with chest pain. On her last admission nuclear stress test was abnormal which showed partially reversible perfusion defect in apical and apical inferior forbes. Medical therapy was done at that time. However she came back with chest discomfort. Troponins not significantly elevated. Patient underwent left heart cath today. Non obstructive CAD. Medical therapy. Can uptitrate metoprolol dose to 100mg BID. Can restart Eliquis tonight and stop plavix. Continue aspirin Thank you for involving us with care of this patient. Please call with questions. Attestations Medical Necessity Statement*: Care expected to cross 2 midnights. Coding Level of Care Code Acute Manager Of Planning for Chg Fwd Diagnoses Paroxysmal A-fib I48.0 NONA (obstructive sleep apnea) G47.33 Hyperlipemia E78.2 Hyperlipidemia type: mixed hyperlipidemia Diabetes mellitus type 2 in obese E11.69; E66.9 Hypertension, benign I10 Chest pain R07.9 Chest pain type: unspecified
[2020-10-12 11:24] LABS: Glucose Point of Care 282 mg/dL (70-110)
--- NOTE | 2020-10-12 14:05 | PM.DCS ---
Discharge Providers Date of Admission: 10/09/20 17:06 Date of Discharge: October 12, 2020 Attending Provider at Admission: Asher Correa Attending Provider at Discharge: Yonas Kelley MD Primary Care Provider: Kristine Rodriguez MD Diagnoses at Discharge Discharge Diagnosis (1) Paroxysmal A-fib: (2) NONA (obstructive sleep apnea): Permanent problem details: Uses CPAP (3) Hyperlipemia: Qualifiers: Hyperlipidemia type: mixed hyperlipidemia Qualified Code(s): E78.2 - Mixed hyperlipidemia (4) Diabetes mellitus type 2 in obese: (5) Hypertension, benign: (6) Chest pain: Status: Acute Qualifiers: Chest pain type: unspecified Qualified Code(s): R07.9 - Chest pain, unspecified Reason for Visit Reason for Visit: CHEST PAIN/ AMS Hospital Course Hospital Course This is a 65-year-old female with past medical history of CAD, COPD, metabolic syndrome, smoker, NONA, atrial fibrillation on Eliquis, who presents to [facility] due to complaints of chest pain and shortness of breath Patient was admitted to [facility] for chest pain and shortness of breath For her chest pain, she had ST depressions in the inferior leads, elevated troponins, treated with aspirin, Plavix, statin, beta-blockade, cardiology was consulted, she underwent coronary angiogram with no obstructive CAD. Discharged on aspirin, Eliquis, statin, beta-blockade, with close follow-up with cardiology as outpatient For her paroxysmal atrial fibrillation, her metoprolol was titrated upwards to 100 mg twice daily For her shortness of breath secondary to COPD, treated with inpatient antibiotics, and Solu-Medrol, she clinically improved, discharged on a prednisone burst, with Advair, albuterol, and instructions to stop smoking Discharge Data Data Completed and Pending: Completed Studies During Hospitalization Category Date Time Status XR chest 1V ruma ble [id number] Stat Exams 10/09/20 13:39 Completed Pending at discharge Category Date Time Status OUTPATIENT CODING SPECIALIST request for service Routin e Exams 10/12/20 07:34 Taken Labs from last 24 hours 10/12/20 10/12/20 10/12/20 10:59 06:33 04:44 WBC RBC Hgb Hct MCV MCH MCHC RDW Plt Count MPV Neut % (Auto) Lymph % (Auto) Webb % (Auto) Eos % (Auto) Baso % (Auto) Neut # (Auto) Lymph # (Auto) Webb # (Auto) Eos # (Auto) Baso # (Auto) Nucleated RBC % (a uto) Nucleated RBCs # Sodium 141 Potassium 4.2 Chloride 108 H Carbon Dioxide 23 Anion Gap 14.2 BUN 19 Creatinine 0.6 GFR Calculation 101.0 Glucose 191 H POC Glucose 282 H 185 H Calculated Osmolal ity 299 H Calcium 8.6 Total Bilirubin 0.3 AST 17 ALT 17 Alkaline Phosphata se 105 Total Protein 6.7 Albumin 3.6 Globulin 3.1 10/12/20 10/11/20 04:44 20:05 WBC 13.8 H RBC 4.11 Hgb 12.4 Hct 38.8 MCV 94.4 MCH 30.2 MCHC 32.0 RDW 13.4 Plt Count 218 MPV 12.0 H Neut % (Auto) 76.0 Lymph % (Auto) 19.9 Webb % (Auto) 3.6 Eos % (Auto) 0.0 Baso % (Auto) 0.1 Neut # (Auto) 10.48 H Lymph # (Auto) 2.7 Webb # (Auto) 0.5 Eos # (Auto) 0.0 Baso # (Auto) 0.0 Nucleated RBC % (a uto) 0 Nucleated RBCs # 0.0 Sodium Potassium Chloride Carbon Dioxide Anion Gap BUN Creatinine GFR Calculation Glucose POC Glucose 263 H Calculated Osmolal ity Calcium Total Bilirubin AST ALT Alkaline Phosphata se Total Protein Albumin Globulin Vitals: Last Vital Signs Temp 97.8 F 10/12/20 10:58 Pulse 101 H 10/12/20 10:58 Resp 17 10/12/20 10:58 BP 120/83 10/12/20 10:58 Pulse Ox 98 10/12/20 10:58 Discharge Plan Discharge Patient Disposition: Home Condition: Stable Prescriptions: New metoprolol tartrate 100 mg tablet 100 mg PO Q12H 30 Days Qty: 60 RF: 0 fluticasone propion-salmeterol [Advair Diskus] 100-50 mcg/dose blister with device 1 inh inhalation DAILY Qty: 60 RF: 0 nitrofurantoin monohyd/m-cryst [Macrobid] 100 mg capsule 100 mg PO BID 5 Days Qty: 10 RF: 0 prednisone 20 mg tablet 20 mg PO BID 5 Days Qty: 10 RF: 0 Continued topiramate [Topamax] 100 mg tablet 100 mg PO TID@08,, RF: 0 nitroglycerin 0.4 mg tablet, sublingual 0.4 mg SUBLINGUAL Q5M PRN (Reason: Chest Pain) RF: 0 albuterol sulfate [Ventolin HFA] 90 mcg/actuation HFA aerosol inhaler 2 puff INHALATION Q6H PRN (Reason: shortness of breath or wheezing) Qty: 8.5 RF: 5 eszopiclone [Lunesta] 3 mg tablet 3 mg PO BEDTIME@1999 Qty: 30 RF: 2 furosemide [Lasix] 40 mg tablet 40 mg PO BID@, RF: 0 oxybutynin chloride 15 mg tablet extended release 24 hr 15 mg PO DAILY@1599 RF: 0 ropinirole 1 mg tablet 1.5 mg PO BEDTIME@1999 RF: 0 aspirin [Adult Aspirin Regimen] 81 mg tablet,delayed release (DR/EC) 81 mg PO DAILY@08 RF: 0 famotidine 20 mg tablet 20 mg PO BID@ RF: 0 gemfibrozil 600 mg tablet 600 mg PO DAILY@1999 RF: 0 metformin 1,000 mg tablet 1,000 mg PO BID@ RF: 0 docusate sodium [Colace] 100 mg capsule 100 mg PO BID@ RF: 0 loratadine 10 mg tablet 10 mg PO BEDTIME@1999 PRN (Reason: allergy symptoms) RF: 0 cyclobenzaprine 5 mg tablet See Rx Instructions .ROUTE .COMPLEX RF: 0 bupropion HCl [Wellbutrin XL] 300 mg tablet extended release 24 hr 300 mg PO DAILY@799 RF: 0 duloxetine 60 mg capsule,delayed release(DR/EC) 60 mg PO BEDTIME@1999 RF: 0 pregabalin 75 mg capsule 75 mg PO BID@ RF: 0 potassium chloride 20 mEq tablet extended release 20 meq PO BID@ RF: 0 One A Day 1 tab PO DAILY@1999 RF: 0 Vitamin C 1 tab PO DAILY@1999 RF: 0 melatonin 1 tab PO DAILY@1999 RF: 0 isosorbide mononitrate 30 mg tablet extended release 24 hr 30 mg PO DAILY@799 RF: 0 buspirone 10 mg tablet 15 mg PO BID@799,1999 RF: 0 amitriptyline 100 mg tablet 100 mg PO DAILY@1999 RF: 0 apixaban 5 mg tablet 5 mg PO BID@08,1999 RF: 0 Discontinued celecoxib 200 mg capsule 200 mg PO DAILY@1999 RF: 0 clopidogrel [Plavix] 75 mg tablet 75 mg PO DAILY@0800 RF: 0 spironolactone 25 mg tablet 25 mg PO DAILY@0800 RF: 0 losartan 100 mg tablet 100 mg PO DAILY@0800 RF: 0 metoprolol succinate 50 mg tablet extended release 24 hr 50 mg PO DAILY@0800 RF: 0 Discharge Orders: Discharge Order (Routine); Ordered 10/12/20 Ordered By: Yonas Kelley Referrals: Kevon Ge M.D [Physician] - 7-10 days ([facility] will contact you to schedule an follow-up appointment in 1 month. If you haven't heard from them by Tuesday. Please call ) Savannah Drake FNP [Nurse Practitioner] - 7-10 days ([facility] will contact you to schedule an follow-up in 7 to 10 days. If you haven't heard from them by Tuesday. Please call ) Kristine Rodriguez MD [Primary Care Provider] - ([facility] will contact you to schedule an follow-up in 4 to 7 days. If you haven't heard from them by Tuesday. Please call ) Discharge Diet: Cardiac Discharge Activity: Resume usual activity Patient Instructions: Metoprolol (By mouth), Albuterol (By breathing), Prednisone (By mouth), Nitrofurantoin Combination (By mouth), Atrial Fibrillation (DC), Left Heart Catheterization (DC), COPD Stoplight, Opioid Safety, Post Angiogram Home Care Instructions Activity Restrictions/Additional Instructions: -If you have any chest pain please go to emergency room -Please take steroids and antibiotics as prescribed -Please stop smoking -Please continue to hold losartan and spironolactone until you see your primary care -Follow-up with primary care in 1 week Discharge Attestations Time Spent in Discharge Care*: less than 30 min Status at Discharge: Cognitive status at discharge: cognitively intact, Behavioral status at discharge: cooperative, Quality Metrics Clinical Quality Measures During this hospital stay, did patient experience: None Coding Level of Care Code Acute Chg [facility] note Diagnoses Paroxysmal A-fib I48.0 NONA (obstructive sleep apnea) G47.33 Hyperlipemia E78.2 Hyperlipidemia type: mixed hyperlipidemia Diabetes mellitus type 2 in obese E11.69; E66.9 Hypertension, benign I10 Chest pain R07.9 Chest pain type: unspecified
== END 2020-10-12 15:05 | disposition home or self-care (01) ==
LOC: ER 16:41 → CSU 10-10 11:11
PROVIDERS: Internal Medicine; Admitting Provider Internal Medicine; Emergency Provider Emergency Medicine; PCP Family Medicine; Visit Provider Family Medicine
DX: I48.0 Paroxysmal atrial fibrillation (principal); G47.33 Obstructive sleep apnea (adult) (pediatric); E78.2 Mixed hyperlipidemia; E11.69 Type 2 diabetes mellitus with other specified complication; I10 Essential (primary) hypertension; R07.9 Chest pain, unspecified; I25.10 Atherosclerotic heart disease of native coronary artery without angina pectoris; F17.210 Nicotine dependence, cigarettes, uncomplicated; Z79.01 Long term (current) use of anticoagulants; M79.7 Fibromyalgia; Z79.4 Long term (current) use of insulin
CPT/HCPCS: 36415; 36416; 71045; 72170; 73030; 80053; 80306; 81001; 82962; 83735; 84484; 85025; 87070; 87077; 87086; 87186; 87205; 93005; 93452; 94640; 94660; 94664; 96372; C1769; C1887; C1894; G0378; J0743; J1644; J1650; J1815; J1956; J2250; J2920; J2930; J3010; J3490; J7030; Q0163; Q9967

== ENCOUNTER 2020-10-14 09:34 | Emergency (ER) | payer MEDICARE, MEDICAID, SELFPAY ==
[2020-09-02 16:11] VITALS: BP 134/75; BMI 41.9
[2020-10-14] VITALS (7 sets, daily range): BP systolic 102–127; BP diastolic 65–78; PULSE 84–117; RESP 18–26; TEMP 37.5; O2SAT 93–95; BMI 42.0
--- NOTE | 2020-10-14 09:56 | XR_ITS ---
WS: [id number] Exam: XR chest 1V portable [id number] Date/Time of Exam: 10/14/2020 9:58 AM Reason For Exam: dyspnea/cough Comparison 10/09/2020. There are patchy infiltrates in the bilateral upper lung zones suggesting pneumonia. Remaining lungs are clear. The lungs are fully inflated. Normal cardiomediastinal structures for portable technique. Bony elements are intact. XR/XR chest 1V portable [id number] IMPRESSION: 1. Patchy infiltrates in the bilateral upper lung zones suggesting pneumonia. C ovid pneumonia might be a consideration.
[2020-10-14 10:04] LABS: Basophils % 0.3 %; Eosinophils # 0.2 10^3/uL (0.0-0.8); Eosinophils % 1.9 %; Hematocrit 40.1 % (37.0-47.0); Hemoglobin 13.1 g/dL (11.5-15.3); Lymphocytes # 2.8 10^3/uL (0.8-4.8); Mean Corpuscular HGB Conc 32.7 g/dL (30.0-36.0); Mean Corpuscular Hemoglobin 30.6 pg (28.0-34.0); Mean Corpuscular Volume 93.7 fL (81-99); Mean Platelet Volume 11.3 fL (7.4-10.4); Monocytes # 0.6 10^3/uL (0.2-0.9); Monocytes % 4.7 %; Neutrophils # 8.01 10^3/uL (1.8-7.7); Neutrophils % 68.8 %; Nucleated Red Blood Cells % 0 %; Platelet Count 235 10^3/cmm (130-400); Red Blood Count 4.28 10^6/uL (4.1-5.3); Red Cell Distribution Width 13.2 % (12.1-15.1); White Blood Count 11.7 10^3/uL (4.0-10.0)
--- NOTE | 2020-10-14 10:06 | ED_ITS ---
HPI - SOB/Dyspnea General: Chief Complaint: Shortness of Breath/Dyspnea Stated Complaint: SOB, POSS COVID Time Seen by Provider: 10/14/20 09:36 History of Present Illness: HPI Narrative: 65-year-old female presents to the emergency room with complaint of shortness of breath and cough for the last couple of days. Patient has significant COPD she is not on oxygen she is on inhaled medications. Her baseline cough is slightly worse than normal but it has been nonproductive. She has had anosmia but she states that is really not any different than she has chronically at various time she will lose her sense of taste and smell for brief periods is not really any different than before. She is not been tested positive for Covid in the last year nor has she had any vaccines. She denies any diarrhea. She not had any chest pain. She was seen last week for SVT. On arrival here today her EKG shows a sinus tachycardia the computer read it as atrial fibrillation both there are P waves present on the EKG. She states her primary reason for calling EMS was that she was short of breath. MD elicited complaint: shortness of breath and cough Pertinent past history: COPD Onset (ago): day(s) (3) Timing: intermittent Severity: moderate Exacerbating factors: exertion and coughing Relieving factors: rest Known history of: COPD Associated symptoms: Reports chest congestion, cough and palpitations; Deny abdominal pain, chest pain, diaphoresis, dizziness, extremity pain, fever(s), hemoptysis, lightheadedness, myalgias, nausea, orthopnea, paresthesias, polydipsia, polyuria, rash, sense of impending doom, syncope or vomiting Treatment prior to arrival: oxygen Review of Systems Const: Denies: fever(s) or diaphoresis ENMT: Denies: throat pain, ear or mastoid pain, nasal discharge or nasal congestion Card: Reports: palpitations; Denies: chest pain, lightheadedness, syncope or orthopnea Resp: Reports: chest congestion; Denies: hemoptysis GI: Denies: abdominal pain, nausea or vomiting : Denies: flank pain, difficulty voiding, dysuria, urinary frequency or urinary urgency Musc: Denies: extremity pain Skin/Breast: Denies: rash or pruritus Neuro: Denies: dizziness Endo: Denies: polyuria or polydipsia PFSH ED PFSH: Medical History Atypical chest pain Bipolar depression CAD (coronary artery disease) Chest pain Chronic headache Chronic pain syndrome Due to her weight and other comorbidities I do not think that there is much that pain management would be able to do. They can do localized injections or treatments on specific joints but she would never be a surgical candidate. Constipation, chronic COPD (chronic obstructive pulmonary disease) Diabetes mellitus type 2 in obese Fibromyalgia Generalized anxiety disorder GERD (gastroesophageal reflux disease) Hyperlipemia Hypertension, benign Insomnia Major depressive disorder, recurrent, moderate Mixed stress and urge urinary incontinence NONA (obstructive sleep apnea) Uses CPAP Overactive bladder Panic disorder [episodic paroxysmal anxiety] Paroxysmal A-fib Paroxysmal atrial fibrillation (~08/2020) Peripheral Vascular Disease RLS (restless legs syndrome) Surgical History H/O thyroidectomy H/O: hysterectomy Hx of cholecystectomy S/P appendectomy Family History Mother , at age 75 Hypertension Father , at age 87 Hypertension Denies family history of Lung disease Stroke Social History Smoking and tobacco status: current every day smoker cigarettes Packs smoked per day: 1 Second hand smoke exposure: No Alcohol intake: never Adopted: No Caregiver/support person: No Lives independently: Yes Housing: Apartment Marital status: / Number of children: 8 Number of grandchildren: 14 Highest education level completed: Some College, No Degree service: No Current occupational status: disabled Pets and animals: Yes Pets & animals: dog(s) History of recent travel: No Leisure activites: art, music, reading and other Sexually active: No Current gender identity: Female Lilliam/Jew: Moravian Special lilliam needs: No Agree to transfusion: Yes Financial difficulty paying for basics: Not Very Hard Female Reproductive History: Para: 8 Spontaneous abortions: No Physical Exam Const: COMMON NORMALS: no acute distress GENERAL APPEARANCE: cooperative and comfortable ORIENTATION/CONSCIOUSNESS: Yes awake, Yes oriented to person, Yes oriented to place and Yes oriented to time HENMT: COMMON NORMALS: normocephalic, atraumatic, hearing grossly normal bilaterally and external ears normal HEAD & SCALP: normocephalic and atraumatic EXTERNAL EAR: Yes external ears normal Resp: AUSCULTATION: wheezes Cardio: COMMON NORMALS: regular rhythm and No murmurs present (Cardio) RATE: tachycardic RHYTHM: regular rhythm GI: COMMON NORMALS: Soft to palpation and No hepatosplenomegaly present AUSCULTATION: Yes normoactive bowel sounds PALPATION: Yes Soft to palpation, No Tenderness to palpation present (GI), No Guarding due to palpation present (GI) and Yes No hepatosplenomegaly present Extremity: COMMON NORMALS: normal to inspection, capillary refill normal, no clubbing, cyanosis or edema, no calf tenderness and no pedal edema Neuro: SENSORIUM/ORIENTATION: Yes oriented to person, Yes oriented to place and Yes oriented to time Skin: COMMON NORMALS: no rashes or lesions noted GENERAL SKIN EXAM: no rashes or lesions noted Course Vital Signs: Vital signs: Vital Signs Temperature 99.5 F 10/14/20 09:37 Pulse Rate 109 H 10/14/20 13:11 Respiratory Rate 22 H 10/14/20 13:11 Blood Pressure 122/65 10/14/20 13:11 Pulse Oximetry 93 10/14/20 13:11 MDM - SOB/Dyspnea MDM Narrative: Medical decision making narrative: SPECT patient has COVID-19. Will discharge home with dexamethasone and albuterol follow-up with primary care Lab Data: Labs: Lab Results 10/14/20 10/14/20 10/14/20 Range/Units 09:51 09:51 10:15 WBC 11.7 H (4.0-10.0) 10^3/ uL RBC 4.28 (4.1-5.3) 10^6/u L Hgb 13.1 (11.5-15.3) g/dL Hct 40.1 (37.0-47.0) % MCV 93.7 (81-99) fL MCH 30.6 (28.0-34.0) pg MCHC 32.7 (30.0-36.0) g/dL RDW 13.2 (12.1-15.1) % Plt Count 235 (130-400) 10^3/c mm MPV 11.3 H (7.4-10.4) fL Neut % (Auto) 68.8 % Lymph % (Auto) 24.0 % Cotton % (Auto) 4.7 % Eos % (Auto) 1.9 % Baso % (Auto) 0.3 % Neut # (Auto) 8.01 H (1.8-7.7) 10^3/u L Lymph # (Auto) 2.8 (0.8-4.8) 10^3/u L Cotton # (Auto) 0.6 (0.2-0.9) 10^3/u L Eos # (Auto) 0.2 (0.0-0.8) 10^3/u L Baso # (Auto) 0.0 (0.0-0.1) 10^3/u L Nucleated RBC % (a uto) 0 % Nucleated RBCs # 0.0 /100WBC Specimen Type Sample Site ABG pH (7.35-7.45) ABG pCO2 (35-45) mmHg ABG pO2 (80.0-100.0) mmH g ABG HCO3 (22-26) mmol/L ABG O2 Saturation ABG Base Excess (-2.0-2.0) mmol/ L Robert Test A-a O2 Gradient (5-10) mmHg Hematocrit (37-47) % Hgb O2 Saturation (95-100) % Carboxyhemoglobin (0.4-20.1) %THgb Methemoglobin (0.4-1.5) % Total Hemoglobin (12-16) g/dL Ionized Calcium (1.1-1.4) mmol/L O2 Delivery Device FiO2 % Stump Blower ID Sodium 137 (136-145) mmol/L Potassium 4.0 (3.5-5.1) mmol/L Chloride 106 (98-107) mmol/L Carbon Dioxide 20 L (22-29) mmol/L Anion Gap 15.0 (5-19) BUN 13 (8-23) mg/dL Creatinine 0.6 (0.5-0.9) mg/dL GFR Calculation 101.0 (90-130) mL/min Glucose 147 H (65-115) mg/dL Calculated Osmolal ity 287 (285-295) mOsm/k g Calcium 8.8 (8.5-10.5) mg/dL Magnesium 2.0 (1.7-2.3) mg/dL Total Bilirubin 0.3 (0.15-1.2) mg/dL AST 21 (0-32) U/L ALT 19 (0-33) U/L Alkaline Phosphata se 117 H (35-105) IU/L Total Protein 7.0 (6.6-8.7) g/dL Albumin 3.8 (3.5-5.2) g/dL Globulin 3.2 (1.3-4.6) g/dL Lipase 11 L (13-60) U/L Urine Color (Yellow) Urine Appearance (CLEAR) Urine pH (5-7) Ur Specific Gravit y (1.005-1.030) Urine Protein (Negative) Urine Glucose (UA) (Normal) Urine Ketones (Negative) Urine Blood (Negative) Urine Nitrate (Negative) Urine Bilirubin (Negative) Urine Urobilinogen (Negative) mg/dL Ur Leukocyte Yvonne ase (Negative) Nasal/Oral COVID-1 9 PCR SARS-CoV-2 Ag (Rap id) Negative (Negative) 10/14/20 10/14/20 10/14/20 Range/Units 10:15 10:19 10:32 WBC (4.0-10.0) 10^3/ uL RBC (4.1-5.3) 10^6/u L Hgb (11.5-15.3) g/dL Hct (37.0-47.0) % MCV (81-99) fL MCH (28.0-34.0) pg MCHC (30.0-36.0) g/dL RDW (12.1-15.1) % Plt Count (130-400) 10^3/c mm MPV (7.4-10.4) fL Neut % (Auto) % Lymph % (Auto) % Cotton % (Auto) % Eos % (Auto) % Baso % (Auto) % Neut # (Auto) (1.8-7.7) 10^3/u L Lymph # (Auto) (0.8-4.8) 10^3/u L Cotton # (Auto) (0.2-0.9) 10^3/u L Eos # (Auto) (0.0-0.8) 10^3/u L Baso # (Auto) (0.0-0.1) 10^3/u L Nucleated RBC % (a uto) % Nucleated RBCs # /100WBC Specimen Type Arterial Sample Site Radial, left ABG pH 7.36 (7.35-7.45) ABG pCO2 32.8 L (35-45) mmHg ABG pO2 73.1 L (80.0-100.0) mmH g ABG HCO3 18.6 L (22-26) mmol/L ABG O2 Saturation 93.5 ABG Base Excess -5.8 L (-2.0-2.0) mmol/ L Robert Test Pos A-a O2 Gradient 4.6 L (5-10) mmHg Hematocrit 43.4 (37-47) % Hgb O2 Saturation 92.9 L (95-100) % Carboxyhemoglobin 0.0 L (0.4-20.1) %THgb Methemoglobin 0.6 (0.4-1.5) % Total Hemoglobin 14.1 (12-16) g/dL Ionized Calcium 1.2 (1.1-1.4) mmol/L O2 Delivery Device Room air FiO2 21.0 % Stump Blower ID Ed Sodium 140.0 (136-145) mmol/L Potassium 4.3 (3.5-5.1) mmol/L Chloride (98-107) mmol/L Carbon Dioxide (22-29) mmol/L Anion Gap (5-19) BUN (8-23) mg/dL Creatinine (0.5-0.9) mg/dL GFR Calculation (90-130) mL/min Glucose 135.0 H (65-115) mg/dL Calculated Osmolal ity (285-295) mOsm/k g Calcium (8.5-10.5) mg/dL Magnesium (1.7-2.3) mg/dL Total Bilirubin (0.15-1.2) mg/dL AST (0-32) U/L ALT (0-33) U/L Alkaline Phosphata se (35-105) IU/L Total Protein (6.6-8.7) g/dL Albumin (3.5-5.2) g/dL Globulin (1.3-4.6) g/dL Lipase (13-60) U/L Urine Color Yellow (Yellow) Urine Appearance Clear (CLEAR) Urine pH 6.5 (5-7) Ur Specific Gravit y 1.015 (1.005-1.030) Urine Protein Neg (Negative) Urine Glucose (UA) Norm (Normal) Urine Ketones Negative (Negative) Urine Blood Neg (Negative) Urine Nitrate Negative (Negative) Urine Bilirubin Neg (Negative) Urine Urobilinogen Norm (Negative) mg/dL Ur Leukocyte Yvonne ase Negative (Negative) Nasal/Oral COVID-1 9 PCR Not detected SARS-CoV-2 Ag (Rap id) (Negative) Discharge Plan Discharge Patient Disposition: Home Clinical Impression: Pneumonia due to 2019-nCoV COPD (chronic obstructive pulmonary disease) Qualifiers: COPD type: chronic bronchitis Chronic bronchitis type: simple Qualified Code(s): J41.0 - Simple chronic bronchitis Condition: Stable Prescriptions: New dexamethasone 6 mg tablet 6 mg PO DAILY Qty: 7 RF: 0 albuterol sulfate 90 mcg/actuation HFA aerosol inhaler 2 inh INHALATION Q4H PRN (Reason: shortness of breath or wheezing) Qty: 18 RF: 0 Discontinued prednisone 20 mg tablet 20 mg PO BID RF: 0 No Action topiramate [Topamax] 100 mg tablet 100 mg PO TID@08,12,20 RF: 0 nitroglycerin 0.4 mg tablet, sublingual 0.4 mg SUBLINGUAL Q5M PRN (Reason: Chest Pain) RF: 0 albuterol sulfate [Ventolin HFA] 90 mcg/actuation HFA aerosol inhaler 2 puff INHALATION Q6H PRN (Reason: shortness of breath or wheezing) Qty: 8.5 RF: 5 doxycycline hyclate 100 mg capsule 100 mg PO BID 5 Days Qty: 10 RF: 0 eszopiclone [Lunesta] 3 mg tablet 3 mg PO BEDTIME@1999 Qty: 30 RF: 2 furosemide [Lasix] 40 mg tablet 40 mg PO BID@08, RF: 0 oxybutynin chloride 15 mg tablet extended release 24 hr 15 mg PO DAILY@1600 RF: 0 ropinirole 1 mg tablet 1.5 mg PO BEDTIME@1999 RF: 0 aspirin [Adult Aspirin Regimen] 81 mg tablet,delayed release (DR/EC) 81 mg PO DAILY@0800 RF: 0 famotidine 20 mg tablet 20 mg PO BID@, RF: 0 gemfibrozil 600 mg tablet 600 mg PO DAILY@1999 RF: 0 metformin 1,000 mg tablet 1,000 mg PO BID@, RF: 0 docusate sodium [Colace] 100 mg capsule 100 mg PO BID@,16 RF: 0 loratadine 10 mg tablet 10 mg PO BEDTIME@1999 PRN (Reason: allergy symptoms) RF: 0 cyclobenzaprine 5 mg tablet See Rx Instructions .ROUTE .COMPLEX RF: 0 bupropion HCl [Wellbutrin XL] 300 mg tablet extended release 24 hr 300 mg PO DAILY@0800 RF: 0 duloxetine 60 mg capsule,delayed release(DR/EC) 60 mg PO BEDTIME@1999 RF: 0 pregabalin 75 mg capsule 75 mg PO BID@ RF: 0 potassium chloride 20 mEq tablet extended release 20 meq PO BID@ RF: 0 metoprolol tartrate 100 mg tablet 100 mg PO Q12H RF: 0 Macrobid 100 mg capsule 100 mg PO BID RF: 0 One A Day 1 tab PO DAILY@1999 RF: 0 Vitamin C 1 tab PO DAILY@1999 RF: 0 melatonin 1 tab PO DAILY@1999 RF: 0 isosorbide mononitrate 30 mg tablet extended release 24 hr 30 mg PO DAILY@799 RF: 0 buspirone 10 mg tablet 15 mg PO BID@ RF: 0 amitriptyline 100 mg tablet 100 mg PO DAILY@1999 RF: 0 apixaban 5 mg tablet 5 mg PO BID@ RF: 0 fluticasone propion-salmeterol [Advair Diskus] 100-50 mcg/dose blister with device 1 inh inhalation DAILY Qty: 60 RF: 0 Discharge Orders: Discharge ED (Routine); Ordered 10/14/20 Ordered By: Kirby Julien Referrals: Kristine Rodriguez MD [Primary Care Provider] - Discharge Diet: Usual diet Patient Instructions: Opioid Safety Activity Restrictions/Additional Instructions: Clinically this is suspected to be COVID-19. You should remain in self quarantine until the final results return. Monitor home oxygen with the fingers at monitor given to you today if consistently below 90 recheck in the emergency room. If your COVID-19 is positive you would be a candidate for monoclonal antibody infusion. Coding Level of Care Code ED Supervisor [employer] for [employer] Fwd Exam Detailed
[2020-10-14 10:29] LABS: ABG PCO2 32.8 mmHg (35-45); ABG PH Result 7.36 (7.35-7.45); Alveolar-Arterial Oxygen Gradi 4.6 mmHg (5-10); Arterial Blood Gas Hematocrit 43.4 % (37-47); Base Excess ABG -5.8 mmol/L (-2.0-2.0); Blood Gas Allen Test Pos; Blood Gas Sample Type Arterial; HCO3 ABG 18.6 mmol/L (22-26); HGB O2 Sat 92.9 % (95-100); Ionized Calcium Level - ABG 1.2 mmol/L (1.1-1.4); Methemoglobin 0.6 % (0.4-1.5); Oxygen Saturation ABG 93.5; PO2 ABG 73.1 mmHg (80.0-100.0); Potassium Level - ABG 4.3 mmol/L (3.5-5.0); Total Hemoglobin 14.1 g/dL (12-16)
[2020-10-14 10:30] LABS: Blood Gas Operator Identificat ED; Blood Gas Sample Site Radial, left; Oxygen Device ROOM AIR
[2020-10-14 10:31] LABS: Alanine Aminotransferase 19 U/L (0-33); Albumin Level 3.8 g/dL (3.5-5.2); Alkaline Phosphatase 117 IU/L (35-105); Aspartate Amino Transferase 21 U/L (0-32); Blood Urea Nitrogen 13 mg/dL (8-23); Calcium 8.8 mg/dL (8.5-10.5); Carbon Dioxide 20 mmol/L (22-29); Chloride 106 mmol/L (98-107); Globulin 3.2 g/dL (1.3-4.6); Glucose 147 mg/dL (65-115); Lipase 11 U/L (13-60); Osmolality Calculated 287 mOsm/kg (285-295); Sodium 137 mmol/L (136-145); Total Bilirubin 0.3 mg/dL (0.15-1.2)
[2020-10-14 10:38] LABS: Add Urine Microscopic? NO; Charge for UA Resulting for Rev
[2020-10-14 10:40] LABS: Bilirubin Urine Neg (Negative); Blood Urine Neg (Negative); Glucose Urine UA Norm (Normal); Ketones Urine Negative (Negative); Leukocyte Esterase Urine Negative (Negative); Nitrate Urine Negative (Negative); Protein Urine Neg (Negative); Specific Gravity, Urine 1.015 (1.005-1.030); Urine Appearance Clear (CLEAR); Urine Color Yellow (Yellow); Urobilinogen Urine Norm (Negative); pH Urine 6.5 (5-7)
[2020-10-14 10:44] LABS: SARS Covid-2 Antigen Negative (Negative)
--- NOTE | 2020-10-14 11:16 | ECG_ITS ---
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 Measurements Intervals [place] Rate: 116 P: [place]: QRS: -55 QRSD: 88 T: 46 QT: 334 QTc: 465 Interpretive Statements ATRIAL FLUTTER WITH RAPID VENTRICULAR RESPONSE PATTERN CONSISTENT WITH PULMONARY DISEASE LEFT ANTERIOR FASCICULAR BLOCK [QRS AXIS <= -45, QR IN I, RS IN II] POSSIBLE INFERIOR MYOCARDIAL INFARCTION [30 ms Q WAVE IN II/aVF], PROBABLY OLD ST DEPRESSION, CONSIDER SUBENDOCARDIAL INJURY [0.1+ mV ST DEPRESSION] Compared to ECG 10/10/2020 11:46:18 Left anterior fascicular block now present Myocardial infarct finding now present ST (T wave) deviation now present T-wave abnormality no longer present Electronically Signed On 10-14-2020 17:38:26 CDT by Kevon Ge M.D. [id number] f
--- NOTE | 2020-10-14 11:35 | CT_ITS ---
WS: [id number] CTA OF THE CHEST WITH PULMONARY EMBOLISM PROTOCOL TECHNIQUE: High-resolution contrast enhanced CTA of the chest with coronal and sagittal reformatted i mages with pulmonary embolism protocol. MIP images are also reviewed. CLINICAL INFORMATION: pneumonia, possible COVID COMPARISON: None. DLP: 500.[address] scans at [facility] use at least one of these dose optimization techniques: automat ed exposure control; mA and/or kV adjustment per patient size (includes targeted exams where dose is matched to clinical indication); or iterative reconstruction. FINDINGS: Proximal main pulmonary arteries are normal. Segmental and subsegmental pulmonary arteries are patent . No evidence of pulmonary embolus. Hazy groundglass infiltrates in the perihilar regions bilaterally and both upper lobes suspicious for COVID19 pneumonia. No focal consolidation or pleural fluid. No mediastinal or hilar lymphadenopathy. Enlarged nodular left thyroid. Adrenal glands are normal. Fatty atrophy of the pancreas. Hypertrophic changes thoracic spine. CT/CT angio chest PE protcl [id number] IMPRESSION: 1. No filling defects to indicate pulmonary embolus. 2. Hazy groundglass infiltrates in the perihilar regions and both upper lobes suspicious for COVID 19 pneumonia. 3. Enlarged nodular left thyroid. This can be followed up with ultrasound on a n elective basis Notified Kirby Julien DO at 10/14/2020 12:04 PM.
[2020-10-14] MEDS: iohexol 350 mg/mL 100 mL Btl IV (11:51)
[2020-10-15 15:14] LABS: Coronavirus Test Green County Not Detected
--- NOTE | 2020-10-16 08:03 | PC.NURSE ---
This nurse attempted to reach pt via both numbers on her facesheet. 1st number listed did not have a voicemail and the 2nd number there was no answer
--- NOTE | 2020-10-16 16:26 | PC.NURSE ---
pt contacted and given the results of her covid test
== END 2020-10-14 13:14 | disposition home or self-care (01) ==
PROVIDERS: Emergency Provider Family Medicine; PCP Family Medicine
DX: U07.1 COVID-19 (principal); J12.82 Pneumonia due to coronavirus disease 2019; J41.0 Simple chronic bronchitis; Z79.82 Long term (current) use of aspirin; Z79.84 Long term (current) use of oral hypoglycemic drugs; I25.10 Atherosclerotic heart disease of native coronary artery without angina pectoris; E11.9 Type 2 diabetes mellitus without complications; E78.5 Hyperlipidemia, unspecified; F17.210 Nicotine dependence, cigarettes, uncomplicated
CPT/HCPCS: 36600; 71045; 71275; 80051; 80053; 81003; 82330; 82805; 83690; 83735; 85025; 87426; 87635; 93005; 96374; 99284; J2930; Q9967

== ENCOUNTER → 2020-12-17 18:00 | Outpatient (BNVA) | payer MEDICARE, MEDICAID, SELFPAY ==
[2020-09-02 16:11] VITALS: BP 134/75; BMI 41.9
== END ==
PROVIDERS: PCP Family Medicine; Visit Provider Family Medicine
DX: E11.69 Type 2 diabetes mellitus with other specified complication (principal); E66.9 Obesity, unspecified; E03.9 Hypothyroidism, unspecified; R79.89 Other specified abnormal findings of blood chemistry; I10 Essential (primary) hypertension; I48.0 Paroxysmal atrial fibrillation; M19.90 Unspecified osteoarthritis, unspecified site; G89.4 Chronic pain syndrome; J41.0 Simple chronic bronchitis; I25.10 Atherosclerotic heart disease of native coronary artery without angina pectoris; Z74.09 Other reduced mobility; Z78.9 Other specified health status; R29.6 Repeated falls
CPT/HCPCS: 80053; 83036; 84439; 84443; 84481; 85025

== ENCOUNTER → 2021-02-09 10:22 | Outpatient (BNVA) | payer MEDICARE, MEDICAID, SELFPAY ==
[2020-09-02 16:11] VITALS: BP 134/75; BMI 41.9
== END ==
PROVIDERS: PCP Family Medicine; Visit Provider Family Medicine
DX: I48.0 Paroxysmal atrial fibrillation (principal); E03.9 Hypothyroidism, unspecified; R79.89 Other specified abnormal findings of blood chemistry; Z23 Encounter for immunization; I10 Essential (primary) hypertension; R60.0 Localized edema; N90.7 Vulvar cyst; E11.69 Type 2 diabetes mellitus with other specified complication; E66.9 Obesity, unspecified
CPT/HCPCS: 84439; 84443; 84481

== ENCOUNTER → 2021-02-10 10:02 | Outpatient (BNVA) | payer MEDICARE, MEDICAID, SELFPAY ==
[2020-09-02 16:11] VITALS: BP 134/75; BMI 41.9
== END ==
PROVIDERS: PCP Family Medicine; Referring Provider Family Medicine; Visit Provider Internal Medicine
DX: E11.9 Type 2 diabetes mellitus without complications (principal); C73 Malignant neoplasm of thyroid gland; R79.89 Other specified abnormal findings of blood chemistry; F33.2 Major depressive disorder, recurrent severe without psychotic features; F41.1 Generalized anxiety disorder; I10 Essential (primary) hypertension; F17.210 Nicotine dependence, cigarettes, uncomplicated
CPT/HCPCS: 99204

== ENCOUNTER → 2021-02-26 09:41 | Outpatient (BNVA) | payer MEDICARE, MEDICAID, SELFPAY ==
[2020-09-02 16:11] VITALS: BP 134/75; BMI 41.9
== END ==
PROVIDERS: PCP Family Medicine; Visit Provider Family Medicine
DX: S99.921A Unspecified injury of right foot, initial encounter (principal); X58.XXXA Exposure to other specified factors, initial encounter
CPT/HCPCS: 73630

== ENCOUNTER 2021-03-31 11:05 | Outpatient (CLI) | payer MEDICARE, MEDICAID, SELFPAY ==
[2020-09-02 16:11] VITALS: BP 134/75; BMI 41.9
--- NOTE | 2021-03-31 11:00 | US_ITS ---
WS: [id number] ULTRASOUND THYROID TECHNIQUE: Ultrasound of the thyroid. CLINICAL INFORMATION: Check thyroid changes COMPARISON: None. FINDINGS: Thyroid: Prior right thyroidectomy. Heterogeneous left thyroid with hypoechoic nodule in the mid left thyroid measuring 10 x 7 x 10 mm. No other suspicious focal nodules. Left thyroid lobe: 6.5 cm x 3.6 cm x 3.1 cm. Isthmus: 0.8 mm. Cervical lymphadenopathy: None. US/US thyroid [id number] IMPRESSION: 1. Prior right thyroidectomy. 2. Heterogeneous left thyroid with hypoechoic nodule in the mid left thyroid m easuring 10 x 7 x 10 mm. Recommend 12 month follow-up.
== END 2021-03-31 11:06 | disposition home or self-care (01) ==
LOC: RAD 11:06
PROVIDERS: PCP Family Medicine; Visit Provider Internal Medicine
DX: R79.89 Other specified abnormal findings of blood chemistry (principal); C73 Malignant neoplasm of thyroid gland; E11.9 Type 2 diabetes mellitus without complications; E89.0 Postprocedural hypothyroidism; E04.1 Nontoxic single thyroid nodule
CPT/HCPCS: 76536

== ENCOUNTER 2021-04-01 01:21 | Emergency (ER) | payer MEDICARE, MEDICAID, SELFPAY ==
[2020-09-02 16:11] VITALS: BP 134/75; BMI 41.9
--- NOTE | 2021-04-01 01:22 | ECG_ITS ---
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 Measurements Intervals [place] Rate: 95 P: 256 NC: 223 QRS: -27 QRSD: 105 T: 11 QT: 353 QTc: 444 Interpretive Statements Possible atrial flutter with variable block BORDERLINE LEFT AXIS DEVIATION [QRS AXIS < -20] Compared to ECG 10/14/2020 09:43:16 Left anterior fascicular block no longer present Myocardial infarct finding no longer present ST (T wave) deviation no longer present Electronically Signed On 04-01-2021 23:42:06 PAPERBOARD BOXES ESTIMATOR by Herber Benoit M.D. [id number]
--- NOTE | 2021-04-01 01:33 | W.ED.CHESTPA ---
Documented by User: JEROME Arreola 04/01/21 02:27 HPI - Chest Pain General: Chief Complaint: Shortness of Breath/Dyspnea Stated Complaint: CP Time Seen by Provider: 04/01/21 01:26 History of Present Illness: HPI narrative: 65-year-old female comes in tonight with complaints of midsternal chest pain. Patient reports that aspirin and nitro by EMS and given her has helped relieve her pain. Patient reports her pain was 7 out of 10 when her pain started and now is at 5 out of 10. Patient appears well. Patient appears no acute distress. Patient does have a history of COPD, diabetes mellitus type 2, chronic anticoagulation therapy, hypertension, thyroid cancer, panic disorder, GERD, fibromyalgia, chronic pain syndrome, coronary artery disease. Patient is a smoker. Patient reports some difficulties lately with a sinus infection and some mild diarrhea. Review of Systems General: Reports: 10 or more systems reviewed and unremarkable except in HPI and below Card: Reports: chest pain [facility] ED PFSH: Medical History (Updated 04/01/21 @ 04:20 by Claudia Ram MD) Atypical chest pain Bipolar depression CAD (coronary artery disease) Chest pain Chronic headache Chronic pain syndrome Due to her weight and other comorbidities I do not think that there is much that pain management would be able to do. They can do localized injections or treatments on specific joints but she would never be a surgical candidate. Constipation, chronic COPD (chronic obstructive pulmonary disease) Diabetes mellitus type 2 in obese Fibromyalgia Generalized anxiety disorder GERD (gastroesophageal reflux disease) Hyperlipemia Hypertension, benign Insomnia Major depressive disorder, recurrent, moderate Mixed stress and urge urinary incontinence Nicotine dependence, cigarettes, with other nicotine-induced disorders NONA (obstructive sleep apnea) Uses CPAP Overactive bladder Panic disorder [episodic paroxysmal anxiety] Paroxysmal A-fib Paroxysmal atrial fibrillation (~08/2020) Peripheral Vascular Disease RLS (restless legs syndrome) Surgical History H/O thyroidectomy H/O: hysterectomy Hx of cholecystectomy S/P appendectomy Family History Mother , at age 75 Hypertension Father , at age 87 Hypertension Denies family history of Lung disease Stroke Social History Second hand smoke exposure: No Alcohol intake: never Adopted: No Caregiver/support person: No Lives independently: Yes Housing: Apartment Marital status: / Number of children: 8 Number of grandchildren: 14 Highest education level completed: Some College, No Degree service: No Current occupational status: disabled Pets and animals: Yes Pets & animals: dog(s) History of recent travel: No Leisure activites: art, music, reading and other Sexually active: No Current gender identity: Female Lilliam/Anabaptist: Adventist Special lilliam needs: No Agree to transfusion: Yes Financial difficulty paying for basics: Not Very Hard Female Reproductive History: Para: 8 Spontaneous abortions: No Physical Exam Const: COMMON NORMALS: no acute distress and patient oriented x3 GENERAL APPEARANCE: cooperative HENMT: COMMON NORMALS: normocephalic and Normal external nose present HEAD & SCALP: normal to inspection and normocephalic NOSE: Normal external nose present MOUTH: Normal oral and palatal mucosa present Eye: GENERAL EYE: appearance normal, both eyes and all related structures Neck/C-Spine: COMMON NORMALS: full ROM Chest: COMMONS NORMALS: normal inspection of the chest Resp: COMMON NORMALS: normal respiratory effort EFFORT & INSPECTION: Yes able to speak in complete sentences AUSCULTATION: diminished lung sounds (Bilateral bases) Cardio: COMMON NORMALS: regular rate and regular rhythm RATE: regular rate RHYTHM: regular rhythm GI: COMMON NORMALS: Soft to palpation and non-tender AUSCULTATION: Yes normoactive bowel sounds PALPATION: Yes Soft to palpation Back/Pelvis: COMMON NORMALS: thoracic and lumbar spine normal to inspection Extremity: COMMON NORMALS: normal to inspection Neuro: COMMON NORMALS: patient oriented x3 and moves all extremities Psych: COMMON NORMALS: mental status grossly normal and cooperative Skin: NARRATIVE SKIN EXAM: Bilateral lower extremities patient has some excoriation of the skin with dry lesions to the anterior lower leg. Minimal redness is noted. Chronic edema is noted. Distal pulses are intact. Cap refill is intact. Patient reports that this is normal for her lower extremities. Course ED course: 225, reviewed patient with Dr. Ram who is going to assume care on my end of shift. Laboratory values so far are unremarkable. Patient does have a 12 on her first troponin level but her normal level seems to be 16. BNP was 600 although patient's appears to run in the thousands on previous lab draws. Patient is pain-free now. Patient does have 1/2 inch of Nitropaste on the chest wall. Vital Signs: Vital signs: Vital Signs Temperature 98.1 F 04/01/21 01:38 Pulse Rate 85 04/01/21 03:32 Respiratory Rate 21 H 04/01/21 03:32 Blood Pressure 136/82 04/01/21 04:28 Pulse Oximetry 96 04/01/21 04:28 MDM - Chest Pain Lab Data: Labs: Lab Results 04/01/21 04/01/21 04/01/21 01:41 01:41 01:41 WBC 10.4 10^3/uL H 10 ^3/uL (4.0-10.0) RBC 4.55 10^6/uL 10^6 /uL (4.1-5.3) Hgb 13.5 g/dL g/dL (11.5-15.3) Hct 42.4 % % (37.0-47.0) MCV 93.2 fl fl (81-99) MCH 29.7 pg pg (28.0-34.0) MCHC 31.8 g/dL g/dL (30.0-36.0) RDW 13.2 % % (12.1-15.1) Plt Count 221 10^3/cmm 10^3 /cmm (130-400) MPV 11.3 fL H fL (7.4-10.4) Neut % (Auto) 68.6 % % Lymph % (Auto) 23.3 % % [place] % (Auto) 5.7 % % Eos % (Auto) 1.7 % % Baso % (Auto) 0.4 % % Neut # (Auto) 7.11 10^3/uL 10^3 /uL (1.8-7.7) Lymph # (Auto) 2.4 10^3/uL 10^3/ uL (0.8-4.8) [place] # (Auto) 0.6 10^3/uL 10^3/ uL (0.2-0.9) Eos # (Auto) 0.2 10^3/uL 10^3/ uL (0.0-0.8) Baso # (Auto) 0.0 10^3/uL 10^3/ uL (0.0-0.1) Nucleated RBC % (a uto) 0 % % Nucleated RBCs # 0.0 /100WBC /100W BC PT 13.40 SECONDS SEC ONDS (12.1-14.9) INR 0.99 (0.8-1.2) D-Dimer <= 0.27 ug/mIFEU ug/mIFEU (0-0.59) Sodium 136 mmol/L mmol/L (136-145) Potassium 4.6 mmol/L mmol/L (3.5-5.1) Chloride 102 mmol/L mmol/L (98-107) Carbon Dioxide 22 mmol/L mmol/L (22-29) Anion Gap 16.6 (5-19) BUN 8 mg/dL mg/dL (8-23) Creatinine 0.5 mg/dL mg/dL (0.5-0.9) GFR Calculation 124.6 mL/min mL/m in (90-130) Glucose 196 mg/dL H mg/dL (65-115) Calculated Osmolal ity 286 mOsm/kg mOsm/ kg (285-295) Calcium 8.1 mg/dL L mg/dL (8.5-10.5) Total Bilirubin 0.2 mg/dL mg/dL (0.15-1.2) AST 28 U/L U/L (0-32) ALT 31 U/L U/L (0-33) Alkaline Phosphata se 127 IU/L H IU/L (35-105) Troponin T Baselin e Troponin T 120 Min [place] Troponin T NT-Pro-B Natriuret Pep 629 pg/mL H pg/mL (0-125) Total Protein 5.9 g/dL L g/dL (6.6-8.7) Albumin 3.6 g/dL g/dL (3.5-5.2) Globulin 2.3 g/dL g/dL (1.3-4.6) 04/01/21 04/01/21 01:41 03:23 WBC RBC Hgb Hct MCV MCH MCHC RDW Plt Count MPV Neut % (Auto) Lymph % (Auto) [place] % (Auto) Eos % (Auto) Baso % (Auto) Neut # (Auto) Lymph # (Auto) [place] # (Auto) Eos # (Auto) Baso # (Auto) Nucleated RBC % (a uto) Nucleated RBCs # PT INR D-Dimer Sodium Potassium Chloride Carbon Dioxide Anion Gap BUN Creatinine GFR Calculation Glucose Calculated Osmolal ity Calcium Total Bilirubin AST ALT Alkaline Phosphata se Troponin T Baselin e 12 ng/L H ng/L (0-10) Troponin T 120 Min [place] 11.49 ng/L H ng/L (0-10) [place] Troponin T -0.51 ABS# L ABS# (0-10) NT-Pro-B Natriuret Pep Total Protein Albumin Globulin Discharge Plan Discharge Patient Disposition: Home Clinical Impression: Chest pain Qualifiers: Chest pain type: unspecified Qualified Code(s): R07.9 - Chest pain, unspecified Dyspnea Qualifiers: Dyspnea type: unspecified Qualified Code(s): R06.00 - Dyspnea, unspecified Condition: Stable Prescriptions: No Action nitroglycerin 0.4 mg tablet, sublingual 0.4 mg SUBLINGUAL Q5M PRN (Reason: Chest Pain) RF: 0 albuterol sulfate [Ventolin HFA] 90 mcg/actuation HFA aerosol inhaler 2 puff INHALATION Q6H PRN (Reason: shortness of breath or wheezing) Qty: 8.5 RF: 5 apixaban 5 mg tablet 5 mg PO BID 30 Days Qty: 60 RF: 5 melatonin 5 mg capsule 10 mg PO .at bedtime PRN (Reason: insomnia) RF: 0 metoprolol tartrate 100 mg tablet 100 mg PO Q12H 30 Days Qty: 60 RF: 5 miscellaneous medical supply Misc See Rx Instructions miscellaneous .COMPLEX Qty: 1 RF: 0 diclofenac sodium 50 mg tablet,delayed release (DR/EC) 50 mg PO BID PRN (Reason: pain) 30 Days Qty: 60 RF: 2 cephalexin 500 mg capsule 500 mg PO TID 7 Days Qty: 21 RF: 0 duloxetine 60 mg capsule,delayed release(DR/EC) See Rx Instructions .ROUTE .COMPLEX Qty: 30 RF: 3 buspirone 10 mg tablet See Rx Instructions .ROUTE .COMPLEX Qty: 90 RF: 3 bupropion HCl 300 mg tablet extended release 24 hr See Rx Instructions .ROUTE .COMPLEX Qty: 30 RF: 3 nicotine 14 mg/24 hr patch 24 hour See Rx Instructions .ROUTE .COMPLEX Qty: 28 RF: 0 suvorexant 10 mg tablet 10 mg PO .at bedime Qty: 30 RF: 0 metformin 1,000 mg tablet See Rx Instructions .ROUTE .COMPLEX Qty: 60 RF: 2 famotidine 20 mg tablet See Rx Instructions .ROUTE .COMPLEX Qty: 180 RF: 1 furosemide 40 mg tablet See Rx Instructions .ROUTE .COMPLEX Qty: 180 RF: 1 pramipexole 0.25 mg tablet See Rx Instructions .ROUTE .COMPLEX Qty: 30 RF: 0 docusate sodium 100 mg capsule 200 mg PO BID 30 Days Qty: 120 RF: 2 cyclobenzaprine 5 mg tablet See Rx Instructions .ROUTE .COMPLEX Qty: 120 RF: 2 potassium chloride 20 mEq tablet,ER particles/crystals See Rx Instructions .ROUTE .COMPLEX Qty: 180 RF: 1 miscellaneous medical supply Misc 1 ea miscellaneous ONCE Qty: 1 RF: 0 isosorbide mononitrate 30 mg tablet extended release 24 hr See Rx Instructions .ROUTE .COMPLEX Qty: 30 RF: 0 oxybutynin chloride 15 mg tablet extended release 24 hr 15 mg PO DAILY@1600 RF: 0 aspirin [Adult Aspirin Regimen] 81 mg tablet,delayed release (DR/EC) 81 mg PO DAILY@0800 RF: 0 gemfibrozil 600 mg tablet 600 mg PO DAILY@1999 RF: 0 loratadine 10 mg tablet 10 mg PO BEDTIME@1999 PRN (Reason: allergy symptoms) RF: 0 albuterol sulfate 90 mcg/actuation HFA aerosol inhaler 2 inh INHALATION Q4H PRN (Reason: shortness of breath or wheezing) Qty: 18 RF: 0 One A Day 1 tab PO DAILY@1999 RF: 0 Vitamin C 1 tab PO DAILY@1999 RF: 0 Discharge Orders: Discharge ED (Routine); Ordered 04/01/21 Ordered By: Claudia Ram Referrals: Kristine Rodriguez MD [Primary Care Provider] - 1-3 days Discharge Diet: Advance as tolerated Discharge Activity: Resume usual activity Patient Instructions: Chest Pain (ED) Coding Level of Care Code ED Cut Off Saw Grader for Chg Fwd Exam Comprehensive Documented by User: Claudia Ram MD 04/01/21 04:37 HPI - Chest Pain General: Chief Complaint: Shortness of Breath/Dyspnea Stated Complaint: CP Time Seen by Provider: 04/01/21 01:26 History of Present Illness: Associated symptoms: Deny abdominal pain, dyspnea, fever(s), nausea or vomiting Review of Systems Const: Denies: fever(s), chills, body aches or change in appetite Eyes: Denies: blurry vision or eye discomfort ENMT: Denies: throat pain or dental pain Card: Denies: chest pain Resp: Denies: dyspnea GI: Denies: abdominal pain, nausea, vomiting or diarrhea : Denies: dysuria Musc: Denies: neck pain or back pain Skin/Breast: Denies: rash Neuro: Denies: headache(s) Psych: Denies: depression Jagjit/Lymph: Denies: easy bruising All/Imm: Denies: urticaria PFSH ED PFSH: Medical History (Updated 04/01/21 @ 04:20 by Claudia Ram MD) Atypical chest pain Bipolar depression CAD (coronary artery disease) Chest pain Chronic headache Chronic pain syndrome Due to her weight and other comorbidities I do not think that there is much that pain management would be able to do. They can do localized injections or treatments on specific joints but she would never be a surgical candidate. Constipation, chronic COPD (chronic obstructive pulmonary disease) Diabetes mellitus type 2 in obese Fibromyalgia Generalized anxiety disorder GERD (gastroesophageal reflux disease) Hyperlipemia Hypertension, benign Insomnia Major depressive disorder, recurrent, moderate Mixed stress and urge urinary incontinence Nicotine dependence, cigarettes, with other nicotine-induced disorders NONA (obstructive sleep apnea) Uses CPAP Overactive bladder Panic disorder [episodic paroxysmal anxiety] Paroxysmal A-fib Paroxysmal atrial fibrillation (~08/2020) Peripheral Vascular Disease RLS (restless legs syndrome) Surgical History H/O thyroidectomy H/O: hysterectomy Hx of cholecystectomy S/P appendectomy Family History Mother , at age 75 Hypertension Father , at age 87 Hypertension Denies family history of Lung disease Stroke Social History Second hand smoke exposure: No Alcohol intake: never Adopted: No Caregiver/support person: No Lives independently: Yes Housing: Apartment Marital status: / Number of children: 8 Number of grandchildren: 14 Highest education level completed: Some College, No Degree service: No Current occupational status: disabled Pets and animals: Yes Pets & animals: dog(s) History of recent travel: No Leisure activites: art, music, reading and other Sexually active: No Current gender identity: Female Lilliam/Anabaptist: Adventist Special lilliam needs: No Agree to transfusion: Yes Financial difficulty paying for basics: Not Very Hard Course Vital Signs: Vital signs: Vital Signs Temperature 98.1 F 04/01/21 01:38 Pulse Rate 85 04/01/21 03:32 Respiratory Rate 21 H 04/01/21 03:32 Blood Pressure 136/82 04/01/21 04:28 Pulse Oximetry 96 04/01/21 04:28 MDM - Chest Pain MDM Narrative: Medical decision making narrative: Patient presents here with chest pains atypical in nature initial repeat troponins here are negative patient also has no signs of pulmonary embolism or congestive heart failure she feels much improved she stable for discharge she is to follow-up PCP and return if worsening she understands agrees to plan. Lab Data: Labs: Lab Results 04/01/21 04/01/21 04/01/21 01:41 01:41 01:41 WBC 10.4 10^3/uL H 10 ^3/uL (4.0-10.0) RBC 4.55 10^6/uL 10^6 /uL (4.1-5.3) Hgb 13.5 g/dL g/dL (11.5-15.3) Hct 42.4 % % (37.0-47.0) MCV 93.2 fl fl (81-99) MCH 29.7 pg pg (28.0-34.0) MCHC 31.8 g/dL g/dL (30.0-36.0) RDW 13.2 % % (12.1-15.1) Plt Count 221 10^3/cmm 10^3 /cmm (130-400) MPV 11.3 fL H fL (7.4-10.4) Neut % (Auto) 68.6 % % Lymph % (Auto) 23.3 % % [place] % (Auto) 5.7 % % Eos % (Auto) 1.7 % % Baso % (Auto) 0.4 % % Neut # (Auto) 7.11 10^3/uL 10^3 /uL (1.8-7.7) Lymph # (Auto) 2.4 10^3/uL 10^3/ uL (0.8-4.8) [place] # (Auto) 0.6 10^3/uL 10^3/ uL (0.2-0.9) Eos # (Auto) 0.2 10^3/uL 10^3/ uL (0.0-0.8) Baso # (Auto) 0.0 10^3/uL 10^3/ uL (0.0-0.1) Nucleated RBC % (a uto) 0 % % Nucleated RBCs # 0.0 /100WBC /100W BC PT 13.40 SECONDS SEC ONDS (12.1-14.9) INR 0.99 (0.8-1.2) D-Dimer <= 0.27 ug/mIFEU ug/mIFEU (0-0.59) Sodium 136 mmol/L mmol/L (136-145) Potassium 4.6 mmol/L mmol/L (3.5-5.1) Chloride 102 mmol/L mmol/L (98-107) Carbon Dioxide 22 mmol/L mmol/L (22-29) Anion Gap 16.6 (5-19) BUN 8 mg/dL mg/dL (8-23) Creatinine 0.5 mg/dL mg/dL (0.5-0.9) GFR Calculation 124.6 mL/min mL/m in (90-130) Glucose 196 mg/dL H mg/dL (65-115) Calculated Osmolal ity 286 mOsm/kg mOsm/ kg (285-295) Calcium 8.1 mg/dL L mg/dL (8.5-10.5) Total Bilirubin 0.2 mg/dL mg/dL (0.15-1.2) AST 28 U/L U/L (0-32) ALT 31 U/L U/L (0-33) Alkaline Phosphata se 127 IU/L H IU/L (35-105) Troponin T Baselin e Troponin T 120 Min [place] Troponin T NT-Pro-B Natriuret Pep 629 pg/mL H pg/mL (0-125) Total Protein 5.9 g/dL L g/dL (6.6-8.7) Albumin 3.6 g/dL g/dL (3.5-5.2) Globulin 2.3 g/dL g/dL (1.3-4.6) 04/01/21 04/01/21 01:41 03:23 WBC RBC Hgb Hct MCV MCH MCHC RDW Plt Count MPV Neut % (Auto) Lymph % (Auto) [place] % (Auto) Eos % (Auto) Baso % (Auto) Neut # (Auto) Lymph # (Auto) [place] # (Auto) Eos # (Auto) Baso # (Auto) Nucleated RBC % (a uto) Nucleated RBCs # PT INR D-Dimer Sodium Potassium Chloride Carbon Dioxide Anion Gap BUN Creatinine GFR Calculation Glucose Calculated Osmolal ity Calcium Total Bilirubin AST ALT Alkaline Phosphata se Troponin T Baselin e 12 ng/L H ng/L (0-10) Troponin T 120 Min [place] 11.49 ng/L H ng/L (0-10) Delta Troponin T -0.51 ABS# L ABS# (0-10) NT-Pro-B Natriuret Pep Total Protein Albumin Globulin Imaging Data^: CXR: Attestation: I personally reviewed and interpreted this imaging study as follows: My impression: no acute abnormality EKG Data^: EKG 2: Attestation: I personally reviewed and interpreted this EKG as follows: EKG interpretation date: 04/01/21 EKG interpretation time: 03:29 Interpretation: afig hr [address] or t wave abnormalities qrs 91 qtc 420 Discharge Plan Discharge Patient Disposition: Home Clinical Impression: Chest pain Qualifiers: Chest pain type: unspecified Qualified Code(s): R07.9 - Chest pain, unspecified Dyspnea Qualifiers: Dyspnea type: unspecified Qualified Code(s): R06.00 - Dyspnea, unspecified Condition: Stable Prescriptions: No Action nitroglycerin 0.4 mg tablet, sublingual 0.4 mg SUBLINGUAL Q5M PRN (Reason: Chest Pain) RF: 0 albuterol sulfate [Ventolin HFA] 90 mcg/actuation HFA aerosol inhaler 2 puff INHALATION Q6H PRN (Reason: shortness of breath or wheezing) Qty: 8.5 RF: 5 apixaban 5 mg tablet 5 mg PO BID 30 Days Qty: 60 RF: 5 melatonin 5 mg capsule 10 mg PO .at bedtime PRN (Reason: insomnia) RF: 0 metoprolol tartrate 100 mg tablet 100 mg PO Q12H 30 Days Qty: 60 RF: 5 miscellaneous medical supply [facility] See Rx Instructions miscellaneous .COMPLEX Qty: 1 RF: 0 diclofenac sodium 50 mg tablet,delayed release (DR/EC) 50 mg PO BID PRN (Reason: pain) 30 Days Qty: 60 RF: 2 cephalexin 500 mg capsule 500 mg PO TID 7 Days Qty: 21 RF: 0 duloxetine 60 mg capsule,delayed release(DR/EC) See Rx Instructions .ROUTE .COMPLEX Qty: 30 RF: 3 buspirone 10 mg tablet See Rx Instructions .ROUTE .COMPLEX Qty: 90 RF: 3 bupropion HCl 300 mg tablet extended release 24 hr See Rx Instructions .ROUTE .COMPLEX Qty: 30 RF: 3 nicotine 14 mg/24 hr patch 24 hour See Rx Instructions .ROUTE .COMPLEX Qty: 28 RF: 0 suvorexant 10 mg tablet 10 mg PO .at bedime Qty: 30 RF: 0 metformin 1,000 mg tablet See Rx Instructions .ROUTE .COMPLEX Qty: 60 RF: 2 famotidine 20 mg tablet See Rx Instructions .ROUTE .COMPLEX Qty: 180 RF: 1 furosemide 40 mg tablet See Rx Instructions .ROUTE .COMPLEX Qty: 180 RF: 1 pramipexole 0.25 mg tablet See Rx Instructions .ROUTE .COMPLEX Qty: 30 RF: 0 docusate sodium 100 mg capsule 200 mg PO BID 30 Days Qty: 120 RF: 2 cyclobenzaprine 5 mg tablet See Rx Instructions .ROUTE .COMPLEX Qty: 120 RF: 2 potassium chloride 20 mEq tablet,ER particles/crystals See Rx Instructions .ROUTE .COMPLEX Qty: 180 RF: 1 miscellaneous medical supply Misc 1 ea miscellaneous ONCE Qty: 1 RF: 0 isosorbide mononitrate 30 mg tablet extended release 24 hr See Rx Instructions .ROUTE .COMPLEX Qty: 30 RF: 0 oxybutynin chloride 15 mg tablet extended release 24 hr 15 mg PO DAILY@1600 RF: 0 aspirin [Adult Aspirin Regimen] 81 mg tablet,delayed release (DR/EC) 81 mg PO DAILY@0800 RF: 0 gemfibrozil 600 mg tablet 600 mg PO DAILY@1999 RF: 0 loratadine 10 mg tablet 10 mg PO BEDTIME@1999 PRN (Reason: allergy symptoms) RF: 0 albuterol sulfate 90 mcg/actuation HFA aerosol inhaler 2 inh INHALATION Q4H PRN (Reason: shortness of breath or wheezing) Qty: 18 RF: 0 One A Day 1 tab PO DAILY@1999 RF: 0 Vitamin C 1 tab PO DAILY@1999 RF: 0 Discharge Orders: Discharge ED (Routine); Ordered 04/01/21 Ordered By: Claudia Ram Referrals: Kristine Rodriguez MD [Primary Care Provider] - 1-3 days Discharge Diet: Advance as tolerated Discharge Activity: Resume usual activity Patient Instructions: Chest Pain (ED) Coding Level of Care Code ED Cut Off Saw Grader for Krystag Fwd Exam Comprehensive
[2021-04-01 01:38] VITALS: BP 155/85; PULSE 97; RESP 20; TEMP 36.7; O2SAT 99; BMI 42.9
[2021-04-01 01:47] LABS: Basophils % 0.4 %; Eosinophils # 0.2 10^3/uL (0.0-0.8); Eosinophils % 1.7 %; Hematocrit 42.4 % (37.0-47.0); Hemoglobin 13.5 g/dL (11.5-15.3); Lymphocytes # 2.4 10^3/uL (0.8-4.8); Lymphocytes % 23.3 %; Mean Corpuscular HGB Conc 31.8 g/dL (30.0-36.0); Mean Corpuscular Hemoglobin 29.7 pg (28.0-34.0); Mean Corpuscular Volume 93.2 fl (81-99); Mean Platelet Volume 11.3 fL (7.4-10.4); Monocytes # 0.6 10^3/uL (0.2-0.9); Monocytes % 5.7 %; Neutrophils # 7.11 10^3/uL (1.8-7.7); Neutrophils % 68.6 %; Nucleated Red Blood Cells % 0 %; Platelet Count 221 10^3/cmm (130-400); Red Blood Count 4.55 10^6/uL (4.1-5.3); Red Cell Distribution Width 13.2 % (12.1-15.1); White Blood Count 10.4 10^3/uL (4.0-10.0)
[2021-04-01] MEDS: nitroglycerin 1 gm/inch oint Pkt 0.5 INCH TOPICAL (01:48)
--- NOTE | 2021-04-01 01:50 | XRR_ITS ---
PROCEDURE INFORMATION: Exam: XR Chest Exam date and time: 04/01/2021 1:50 AM Age: 65 years old Clinical indication: Shortness of breath; Chest pressure; Patient HX: Chest pain with SOB. TECHNIQUE: Imaging protocol: XR of the chest. Views: 1 view. COMPARISON: CR XR chest 1V portable [id number] 10/14/2020 10:07 AM FINDINGS: Lungs: No CHF/pulmonary edema. Poor inspiration somewhat limits evaluation, especially of the lung bases. Visible lungs appear essentially clear. Pleural spaces: No visible pneumothorax. No definite pleural fluid. Heart/Mediastinum: Heart size is upper range of normal. Bones/joints: No significant acute finding. XR/XR chest 1V portable [id number] IMPRESSION: 1. No definite CHF or pneumonia 2. Other findings discussed above. Radiation Dose CTDIVOL = (mGy): DLP = (mGy-cm)
[2021-04-01 01:58] LABS: INR 0.99 (0.8-1.2)
[2021-04-01 02:01] LABS: D Dimer <= 0.27 ug/mIFEU (0-0.59)
[2021-04-01 02:09] LABS: Troponin(5th) Baseline 12 ng/L (0-10)
[2021-04-01 02:16] LABS: Alanine Aminotransferase 31 U/L (0-33); Albumin Level 3.6 g/dL (3.5-5.2); Alkaline Phosphatase 127 IU/L (35-105); Aspartate Amino Transferase 28 U/L (0-32); Blood Urea Nitrogen 8 mg/dL (8-23); Calcium 8.1 mg/dL (8.5-10.5); Carbon Dioxide 22 mmol/L (22-29); Chloride 102 mmol/L (98-107); Globulin 2.3 g/dL (1.3-4.6); Glomerular Filtration Rate 124.6 mL/min (90-130); Glucose 196 mg/dL (65-115); NT Pro B Type Natriuretic Pept 629 pg/mL (0-125); Osmolality Calculated 286 mOsm/kg (285-295); Sodium 136 mmol/L (136-145); Total Bilirubin 0.2 mg/dL (0.15-1.2); Total Protein 5.9 g/dL (6.6-8.7)
[2021-04-01 02:17] LABS: Anion Gap 16.6 (5-19); Potassium 4.6 mmol/L (3.5-5.1)
[2021-04-01] MEDS: labetalol 5 mg/mL SDV 20mL 10 MG IVP (02:42)
[2021-04-01 02:50] VITALS: BP 206/162
[2021-04-01 03:00] VITALS: O2SAT 99
--- NOTE | 2021-04-01 03:22 | ECG_ITS ---
[facility] Test Date: 2021-04-01 Pat Name: Lin Henao Department: Room: Gender: Female Facilitator: : 1955 Requested By: Claudia Ram Order Number: [id number] Tylor MD: Herber Benoit M.D. Measurements Intervals [place] Rate: 85 P: [place]: QRS: -17 QRSD: 91 T: -2 QT: 378 QTc: 451 Interpretive Statements ATRIAL FLUTTER with variable block ABNORMAL RHYTHM ECG Compared to ECG 04/01/2021 01:30:51 Ectopic atrial rhythm no longer present First degree AV block no longer present Electronically Signed On 04-01-2021 23:52:54 FOOD SERVICE DRIVER by Herber Benoit M.D. [id number]
[2021-04-01 03:32] VITALS: BP 119/86; PULSE 85; RESP 21; O2SAT 95
[2021-04-01 03:56] LABS: Troponin 5 2HR 11.49 ng/L (0-10)
[2021-04-01 04:01] LABS: Troponin 5 2HR Delta -0.51 ABS# (0-10)
[2021-04-01 04:09] VITALS: BP 136/82; O2SAT 95
--- NOTE | 2021-04-01 04:16 | PC.NURSE ---
nitro paste removed at aprox 410 am
[2021-04-01 04:28] VITALS: BP 136/82; O2SAT 96
== END 2021-04-01 04:30 | disposition home or self-care (01) ==
PROVIDERS: Emergency Provider Emergency Medicine; PCP Family Medicine
DX: R07.9 Chest pain, unspecified (principal); R06.00 Dyspnea, unspecified; Z79.84 Long term (current) use of oral hypoglycemic drugs; Z79.82 Long term (current) use of aspirin; I25.10 Atherosclerotic heart disease of native coronary artery without angina pectoris; J44.9 Chronic obstructive pulmonary disease, unspecified; E11.9 Type 2 diabetes mellitus without complications; E78.5 Hyperlipidemia, unspecified; I10 Essential (primary) hypertension
CPT/HCPCS: 71045; 80053; 83880; 84484; 85025; 85378; 85610; 93005; 96374; 99284; J3490

== ENCOUNTER → 2021-04-02 10:28 | Outpatient (BNVA) | payer MEDICARE, MEDICAID, SELFPAY ==
[2020-09-02 16:11] VITALS: BP 134/75; BMI 41.9
== END ==
PROVIDERS: PCP Family Medicine; Visit Provider Family Medicine
DX: Z20.822 Contact with and (suspected) exposure to COVID-19 (principal); Z11.59 Encounter for screening for other viral diseases
CPT/HCPCS: 87635

== ENCOUNTER 2021-04-03 01:02 | Emergency (ER) | payer MEDICARE, MEDICAID, SELFPAY ==
[2020-09-02 16:11] VITALS: BP 134/75; BMI 41.9
[2021-04-03 01:17] VITALS: BP 114/78; PULSE 122; RESP 20; TEMP 37.7; O2SAT 94; BMI 42.9
--- NOTE | 2021-04-03 01:29 | XRR_ITS ---
PROCEDURE INFORMATION: Exam: XR Chest Exam date and time: 04/03/2021 1:29 AM Age: 65 years old Clinical indication: Shortness of breath; Prior surgery; Surgery type: Gb. Thyroidectomy. ; Patient HX: C/O SOB. Recent covid exposure. TECHNIQUE: Imaging protocol: XR of the chest. Views: 1 view. COMPARISON: CR (CHEST, ) 04/01/2021 1:52 AM FINDINGS: Lungs: Unremarkable. No consolidation. Pleural spaces: Unremarkable. No pleural effusion. No pneumothorax. Heart/Mediastinum: Unremarkable. No cardiomegaly. Bones/joints: Unremarkable. XR/XR chest 1V portable [id number] IMPRESSION: No acute disease. Radiation Dose CTDIVOL = (mGy): DLP = (mGy-cm)
--- NOTE | 2021-04-03 01:29 | ECG_ITS ---
[facility] Test Date: 2021-04-03 Pat Name: Lin Henao Department: Room: Gender: Female Rock Loader: : 1955 Requested By: Claudia Ram Order Number: [id number] Tylor MD: Kevon Ge M.D. Measurements Intervals [place] Rate: 111 P: [place]: QRS: -22 QRSD: 90 T: 9 QT: 330 QTc: 450 Interpretive Statements ATRIAL FLUTTER WITH RAPID VENTRICULAR RESPONSE BORDERLINE LEFT AXIS DEVIATION [QRS AXIS < -20] Compared to ECG 04/01/2021 03:29:01 No significant changes Electronically Signed On 04-05-2021 13:23:07 TELEPHONE OPERATOR CHIEF by Kevon Ge M.D. [id number]
--- NOTE | 2021-04-03 01:37 | W.ED.SOB ---
HPI - SOB/Dyspnea General: Chief Complaint: Shortness of Breath/Dyspnea Stated Complaint: POSSIBLE COVID Time Seen by Provider: 04/03/21 01:31 Source: patient and EMS Mode of arrival: EMS Limitations: no limitations History of Present Illness: HPI Narrative: 65-year-old female states she is concerned she may have Covid states that over the last 2 days she has had a cough congestion and low-grade fevers she was tested at her PCP office 2 days ago with the results of not came back states tonight her temperature got up to 99.9 she was is concerned she is having worsening cough she denies any chest pain patient here is 96% on room air she denies any abdominal pain or vomiting. Denies any worst improving factors. Associated symptoms: Reports fever(s); Deny abdominal pain, chest pain, nausea or vomiting Review of Systems Const: Reports: fever(s), chills and body aches Eyes: Denies: blurry vision or eye discomfort ENMT: Denies: throat pain or dental pain Card: Denies: chest pain Resp: Reports: dyspnea and non-productive cough GI: Denies: abdominal pain, nausea, vomiting or diarrhea : Denies: dysuria Musc: Denies: neck pain or back pain Skin/Breast: Denies: rash Neuro: Denies: headache(s) Psych: Denies: depression Jagjit/Lymph: Denies: easy bruising All/Imm: Denies: urticaria PFSH ED PFSH: Medical History Atypical chest pain Bipolar depression CAD (coronary artery disease) Chest pain Chronic headache Chronic pain syndrome Due to her weight and other comorbidities I do not think that there is much that pain management would be able to do. They can do localized injections or treatments on specific joints but she would never be a surgical candidate. Constipation, chronic COPD (chronic obstructive pulmonary disease) Diabetes mellitus type 2 in obese Fibromyalgia Generalized anxiety disorder GERD (gastroesophageal reflux disease) Hyperlipemia Hypertension, benign Insomnia Major depressive disorder, recurrent, moderate Mixed stress and urge urinary incontinence Nicotine dependence, cigarettes, with other nicotine-induced disorders NONA (obstructive sleep apnea) Uses CPAP Overactive bladder Panic disorder [episodic paroxysmal anxiety] Paroxysmal A-fib Paroxysmal atrial fibrillation (~08/2020) Peripheral Vascular Disease RLS (restless legs syndrome) Surgical History H/O thyroidectomy H/O: hysterectomy Hx of cholecystectomy S/P appendectomy Family History Mother , at age 75 Hypertension Father , at age 87 Hypertension Denies family history of Lung disease Stroke Social History Second hand smoke exposure: No Alcohol intake: never Adopted: No Caregiver/support person: No Lives independently: Yes Housing: Apartment Marital status: / Number of children: 8 Number of grandchildren: 14 Highest education level completed: Some College, No Degree service: No Current occupational status: disabled Pets and animals: Yes Pets & animals: dog(s) History of recent travel: No Leisure activites: art, music, reading and other Sexually active: No Current gender identity: Female Lilliam/Muslim: [employer] Special lilliam needs: No Agree to transfusion: Yes Financial difficulty paying for basics: Not Very Hard Female Reproductive History: Para: 8 Spontaneous abortions: No Physical Exam Const: COMMON NORMALS: no acute distress, patient oriented x3 and healthy appearing HENMT: COMMON NORMALS: normocephalic and atraumatic HEAD & SCALP: normocephalic and atraumatic Eye: COMMON NORMALS: Equal, round and reactive pupils present and EOMs intact bilaterally PUPIL: Yes Equal, round and reactive pupils present Neck/C-Spine: COMMON NORMALS: full ROM and supple Chest: COMMONS NORMALS: normal inspection of the chest and normal palpation of entire chest wall Resp: COMMON NORMALS: normal respiratory effort, No retractions, No use of accessory muscles and clear to auscultation bilaterally AUSCULTATION: clear to auscultation bilaterally Cardio: COMMON NORMALS: regular rhythm and No murmurs present (Cardio) RATE: tachycardic RHYTHM: regular rhythm GI: COMMON NORMALS: Normal to inspection, nondistended, normoactive bowel sounds present, Soft to palpation, non-tender and no masses PALPATION: Yes Soft to palpation Extremity: COMMON NORMALS: normal to inspection and full ROM Neuro: COMMON NORMALS: patient oriented x3, moves all extremities and no focal motor deficits Psych: COMMON NORMALS: mental status grossly normal, Normal thought process present and cooperative THOUGHT PROCESS: Normal thought process present Skin: COMMON NORMALS: no rashes or lesions noted and no wounds GENERAL SKIN EXAM: no rashes or lesions noted Course Vital Signs: Vital signs: Vital Signs Temperature 99.9 F H 04/03/21 01:17 Pulse Rate 96 04/03/21 03:48 Respiratory Rate 22 H 04/03/21 03:48 Blood Pressure 94/60 04/03/21 03:48 Pulse Oximetry 94 04/03/21 03:48 MDM - SOB/Dyspnea MDM Narrative: Medical decision making narrative: Patient presents here with cough low-grade fever with likely upper respiratory infection no signs of pneumonia no Covid or influenza patient does have a history A. fib her heart rate at discharge is 86 she has no signs of sepsis she is not requiring any oxygen here D-dimer is negative we will place patient on Keflex due to her fever she is to follow-up with PCP in 2 to 4 days return if worsening she understands agrees to plan. Lab Data: Labs: Lab Results 04/03/21 04/03/21 04/03/21 01:55 01:55 01:55 WBC 7.6 10^3/uL 10^3/ uL (4.0-10.0) RBC 4.82 10^6/uL 10^6 /uL (4.1-5.3) Hgb 14.6 g/dL g/dL (11.5-15.3) Hct 45.3 % % (37.0-47.0) MCV 94.0 fl fl (81-99) MCH 30.3 pg pg (28.0-34.0) MCHC 32.2 g/dL g/dL (30.0-36.0) RDW 13.2 % % (12.1-15.1) Plt Count 193 10^3/cmm 10^3 /cmm (130-400) MPV 11.3 fL H fL (7.4-10.4) Neut % (Auto) 78.5 % % Lymph % (Auto) 14.9 % % Christian % (Auto) 4.5 % % Eos % (Auto) 1.4 % % Baso % (Auto) 0.3 % % Neut # (Auto) 5.96 10^3/uL 10^3 /uL (1.8-7.7) Lymph # (Auto) 1.1 10^3/uL 10^3/ uL (0.8-4.8) Christian # (Auto) 0.3 10^3/uL 10^3/ uL (0.2-0.9) Eos # (Auto) 0.1 10^3/uL 10^3/ uL (0.0-0.8) Baso # (Auto) 0.0 10^3/uL 10^3/ uL (0.0-0.1) Nucleated RBC % (a uto) 0 % % Nucleated RBCs # 0.0 /100WBC /100W BC D-Dimer 0.38 ug/mIFEU ug/ mIFEU (0-0.59) Specimen Type Sample Site ABG pH ABG pCO2 ABG pO2 ABG HCO3 ABG Base Excess Robert Test Hematocrit O2 Delivery Device Cytotechnologist/Histotechnologist ID Sodium 133 mmol/L L mmol /L (136-145) Potassium 4.1 mmol/L mmol/L (3.5-5.1) Chloride 101 mmol/L mmol/L (98-107) Carbon Dioxide 21 mmol/L L mmol/ L (22-29) Anion Gap 15.1 (5-19) BUN 10 mg/dL mg/dL (8-23) Creatinine 0.6 mg/dL mg/dL (0.5-0.9) GFR Calculation 101.0 mL/min mL/m in (90-130) Glucose 179 mg/dL H mg/dL (65-115) Calculated Osmolal ity 280 mOsm/kg L mOs m/kg (285-295) Lactic Acid Calcium 7.8 mg/dL L mg/dL (8.5-10.5) Total Bilirubin 0.4 mg/dL mg/dL (0.15-1.2) AST 22 U/L U/L (0-32) ALT 25 U/L U/L (0-33) Alkaline Phosphata se 120 IU/L H IU/L (35-105) C-Reactive Protein 10.2 mg/L H mg/L (0.0-4.9) NT-Pro-B Natriuret Pep 625 pg/mL H pg/mL (0-125) Total Protein 6.2 g/dL L g/dL (6.6-8.7) Albumin 3.5 g/dL g/dL (3.5-5.2) Globulin 2.7 g/dL g/dL (1.3-4.6) Influenza Type A A g Influenza Type B A g SARS-CoV-2 Ag (Rap id) 04/03/21 04/03/21 04/03/21 01:55 02:15 02:23 WBC RBC Hgb Hct MCV MCH MCHC RDW Plt Count MPV Neut % (Auto) Lymph % (Auto) Christian % (Auto) Eos % (Auto) Baso % (Auto) Neut # (Auto) Lymph # (Auto) Christian # (Auto) Eos # (Auto) Baso # (Auto) Nucleated RBC % (a uto) Nucleated RBCs # D-Dimer Specimen Type Arterial Sample Site Radial, left ABG pH 7.40 (7.35-7.45) ABG pCO2 37.1 mmHg mmHg (35-45) ABG pO2 75.3 mmHg L mmHg (80.0-100.0) ABG HCO3 23.1 mmol/L mmol/ L (22-26) ABG Base Excess -1.2 mmol/L mmol/ L (-2.0-2.0) Robert Test Pos Hematocrit 43.6 % % (37-47) O2 Delivery Device Room air Cytotechnologist/Histotechnologist ID Michael Sodium Potassium Chloride Carbon Dioxide Anion Gap BUN Creatinine GFR Calculation Glucose Calculated Osmolal ity Lactic Acid 1.1 mmol/L mmol/L (0.5-2.2) Calcium Total Bilirubin AST ALT Alkaline Phosphata se C-Reactive Protein NT-Pro-B Natriuret Pep Total Protein Albumin Globulin Influenza Type A A g Influenza Type B A g SARS-CoV-2 Ag (Rap id) Negative (Negative) 04/03/21 02:40 WBC RBC Hgb Hct MCV MCH MCHC RDW Plt Count MPV Neut % (Auto) Lymph % (Auto) Christian % (Auto) Eos % (Auto) Baso % (Auto) Neut # (Auto) Lymph # (Auto) Christian # (Auto) Eos # (Auto) Baso # (Auto) Nucleated RBC % (a uto) Nucleated RBCs # D-Dimer Specimen Type Sample Site ABG pH ABG pCO2 ABG pO2 ABG HCO3 ABG Base Excess Robert Test Hematocrit O2 Delivery Device Cytotechnologist/Histotechnologist ID Sodium Potassium Chloride Carbon Dioxide Anion Gap BUN Creatinine GFR Calculation Glucose Calculated Osmolal ity Lactic Acid Calcium Total Bilirubin AST ALT Alkaline Phosphata se C-Reactive Protein NT-Pro-B Natriuret Pep Total Protein Albumin Globulin Influenza Type A A g Negative (Negative) Influenza Type B A g Negative (Negative) SARS-CoV-2 Ag (Rap id) Imaging Data^: CXR: Attestation: I personally reviewed and interpreted this imaging study as follows: My impression: no acute abnormality EKG Data^: EKG 1: Attestation: I personally reviewed and interpreted this EKG as follows: EKG Interpretation Date: 04/03/21 EKG interpretation time: 03:35 Interpretation: atrial flutter hr [address] or t wave abnormalities qrs 90 qtc 396 no change from previous Discharge Plan Discharge Patient Disposition: Home Clinical Impression: Upper respiratory infection Qualifiers: URI type: unspecified URI Qualified Code(s): J06.9 - Acute upper respiratory infection, unspecified Condition: Stable Prescriptions: New cephalexin 500 mg capsule 500 mg PO QID 7 Days Qty: 28 RF: 0 No Action nitroglycerin 0.4 mg tablet, sublingual 0.4 mg SUBLINGUAL Q5M PRN (Reason: Chest Pain) RF: 0 albuterol sulfate [Ventolin HFA] 90 mcg/actuation HFA aerosol inhaler 2 puff INHALATION Q6H PRN (Reason: shortness of breath or wheezing) Qty: 8.5 RF: 5 melatonin 5 mg capsule 10 mg PO .at bedtime PRN (Reason: insomnia) RF: 0 metoprolol tartrate 100 mg tablet 100 mg PO Q12H 30 Days Qty: 60 RF: 5 miscellaneous medical supply Misc See Rx Instructions miscellaneous .COMPLEX Qty: 1 RF: 0 oxybutynin chloride 15 mg tablet extended release 24 hr 15 mg PO DAILY 90 Days Qty: 90 RF: 1 metformin 1,000 mg tablet See Rx Instructions .ROUTE .COMPLEX Qty: 60 RF: 2 isosorbide mononitrate 30 mg tablet extended release 24 hr See Rx Instructions .ROUTE .COMPLEX Qty: 30 RF: 5 apixaban 5 mg tablet 5 mg PO BID 30 Days Qty: 60 RF: 5 (DME) Blood Glucose Test Strip See Rx Instructions .ROUTE .MEDSUPPLY Qty: 50 RF: 11 (DME) Depend Underwear For Women XL Misc See Rx Instructions .Route Qty: 360 RF: 11 diclofenac sodium 50 mg tablet,delayed release (DR/EC) 50 mg PO BID PRN (Reason: pain) 30 Days Qty: 60 RF: 2 duloxetine 60 mg capsule,delayed release(DR/EC) See Rx Instructions .ROUTE .COMPLEX Qty: 30 RF: 3 buspirone 10 mg tablet See Rx Instructions .ROUTE .COMPLEX Qty: 90 RF: 3 bupropion HCl 300 mg tablet extended release 24 hr See Rx Instructions .ROUTE .COMPLEX Qty: 30 RF: 3 nicotine 14 mg/24 hr patch 24 hour See Rx Instructions .ROUTE .COMPLEX Qty: 28 RF: 0 suvorexant 10 mg tablet 10 mg PO .at bedime Qty: 30 RF: 0 famotidine 20 mg tablet See Rx Instructions .ROUTE .COMPLEX Qty: 180 RF: 1 furosemide 40 mg tablet See Rx Instructions .ROUTE .COMPLEX Qty: 180 RF: 1 pramipexole 0.25 mg tablet See Rx Instructions .ROUTE .COMPLEX Qty: 30 RF: 0 docusate sodium 100 mg capsule 200 mg PO BID 30 Days Qty: 120 RF: 2 cyclobenzaprine 5 mg tablet See Rx Instructions .ROUTE .COMPLEX Qty: 120 RF: 2 potassium chloride 20 mEq tablet,ER particles/crystals See Rx Instructions .ROUTE .COMPLEX Qty: 180 RF: 1 miscellaneous medical supply Misc 1 ea miscellaneous ONCE Qty: 1 RF: 0 aspirin [Adult Aspirin Regimen] 81 mg tablet,delayed release (DR/EC) 81 mg PO DAILY@0800 RF: 0 gemfibrozil 600 mg tablet 600 mg PO DAILY@1999 RF: 0 loratadine 10 mg tablet 10 mg PO BEDTIME@1999 PRN (Reason: allergy symptoms) RF: 0 albuterol sulfate 90 mcg/actuation HFA aerosol inhaler 2 inh INHALATION Q4H PRN (Reason: shortness of breath or wheezing) Qty: 18 RF: 0 One A Day 1 tab PO DAILY@1999 RF: 0 Vitamin C 1 tab PO DAILY@1999 RF: 0 Discharge Orders: Discharge ED (Routine); Ordered 04/03/21 Ordered By: Claudia Ram Referrals: Kristine Rodriguez MD [Primary Care Provider] - 1-3 days Discharge Diet: Advance as tolerated Discharge Activity: Resume usual activity Patient Instructions: Upper Respiratory Infection (ED) Coding Level of Care Code ED Sizing Sprayer for Chg Fwd Exam Comprehensive
[2021-04-03 02:02] LABS: Basophils % 0.3 %; Eosinophils # 0.1 10^3/uL (0.0-0.8); Eosinophils % 1.4 %; Hematocrit 45.3 % (37.0-47.0); Hemoglobin 14.6 g/dL (11.5-15.3); Lymphocytes # 1.1 10^3/uL (0.8-4.8); Lymphocytes % 14.9 %; Mean Corpuscular HGB Conc 32.2 g/dL (30.0-36.0); Mean Corpuscular Hemoglobin 30.3 pg (28.0-34.0); Mean Platelet Volume 11.3 fL (7.4-10.4); Monocytes # 0.3 10^3/uL (0.2-0.9); Monocytes % 4.5 %; Neutrophils # 5.96 10^3/uL (1.8-7.7); Neutrophils % 78.5 %; Nucleated Red Blood Cells % 0 %; Platelet Count 193 10^3/cmm (130-400); Red Blood Count 4.82 10^6/uL (4.1-5.3); Red Cell Distribution Width 13.2 % (12.1-15.1); White Blood Count 7.6 10^3/uL (4.0-10.0)
[2021-04-03] MEDS: acetaminophen 500 mg Tablet 1000 MG PO (02:15)
[2021-04-03 02:16] LABS: D Dimer 0.38 ug/mIFEU (0-0.59)
[2021-04-03 02:22] LABS: Lactic Sepsis W/Reflex 1.1 mmol/L (0.5-2.2)
[2021-04-03] MEDS: sodium chloride 0.9% 1,000 ML 999 ML IV (02:25)
[2021-04-03 02:33] LABS: Alanine Aminotransferase 25 U/L (0-33); Albumin Level 3.5 g/dL (3.5-5.2); Alkaline Phosphatase 120 IU/L (35-105); Anion Gap 15.1 (5-19); Aspartate Amino Transferase 22 U/L (0-32); Blood Urea Nitrogen 10 mg/dL (8-23); C Reactive Protein 10.2 mg/L (0.0-4.9); Calcium 7.8 mg/dL (8.5-10.5); Carbon Dioxide 21 mmol/L (22-29); Chloride 101 mmol/L (98-107); Globulin 2.7 g/dL (1.3-4.6); Glucose 179 mg/dL (65-115); NT Pro B Type Natriuretic Pept 625 pg/mL (0-125); Osmolality Calculated 280 mOsm/kg (285-295); Potassium 4.1 mmol/L (3.5-5.1); Sodium 133 mmol/L (136-145); Total Bilirubin 0.4 mg/dL (0.15-1.2); Total Protein 6.2 g/dL (6.6-8.7)
[2021-04-03 02:35] LABS: ABG PCO2 37.1 mmHg (35-45); Arterial Blood Gas Hematocrit 43.6 % (37-47); Base Excess ABG -1.2 mmol/L (-2.0-2.0); Blood Gas Allen Test Pos; Blood Gas Sample Site Radial, left; Blood Gas Sample Type Arterial; HCO3 ABG 23.1 mmol/L (22-26); Oxygen Device ROOM AIR; PO2 ABG 75.3 mmHg (80.0-100.0)
[2021-04-03 03:08] LABS: SARS Covid-2 Antigen Negative (Negative)
[2021-04-03 03:17] LABS: Influenza A by IFA Negative (Negative); Influenza B by IFA Negative (Negative)
[2021-04-03 03:48] VITALS: BP 94/60; PULSE 96; RESP 22; O2SAT 94
[2021-04-03 04:00] VITALS: BP 123/78; PULSE 90; RESP 20; O2SAT 95
== END 2021-04-03 04:09 | disposition home or self-care (01) ==
PROVIDERS: Emergency Provider Emergency Medicine; PCP Family Medicine
DX: J06.9 Acute upper respiratory infection, unspecified (principal); Z79.84 Long term (current) use of oral hypoglycemic drugs; Z79.82 Long term (current) use of aspirin; I25.10 Atherosclerotic heart disease of native coronary artery without angina pectoris; J44.9 Chronic obstructive pulmonary disease, unspecified; E11.9 Type 2 diabetes mellitus without complications; E78.5 Hyperlipidemia, unspecified; I10 Essential (primary) hypertension; Z20.822 Contact with and (suspected) exposure to COVID-19
CPT/HCPCS: 36415; 71045; 80053; 82803; 83605; 83880; 85025; 85378; 86140; 87040; 87426; 87804; 93005; 96361; 96374; 99284; J3490; J7030

== ENCOUNTER 2021-04-15 20:25 | Emergency (ER) | payer MEDICARE, MEDICAID, SELFPAY ==
[2020-09-02 16:11] VITALS: BP 134/75; BMI 41.9
[2021-04-15 20:28] VITALS: BP 95/80; PULSE 98; RESP 16; TEMP 36.8; O2SAT 98; BMI 42.9
--- NOTE | 2021-04-15 20:29 | W.ED.CHESTPA ---
Documented by User: Joce Westfall MD 04/28/21 19:50 HPI - Chest Pain General: Chief Complaint: Chest Pain Stated Complaint: CP Time Seen by Provider: 04/15/21 20:28 History of Present Illness: HPI narrative: Ms. Henao is a 65-year-old lady with history of hypertension, hyperlipidemia, peripheral arterial disease, diabetes, COPD who presents to the emergency department due to chest pain. She has a history of chest pain. This current episode started approximately 3 hours ago while the patient was at rest. She endorses moderate intensity sharp pain that radiates from the left posterior to anterior chest with mild radiation down the arm and neck. Minimal associated nausea without vomiting. Mild associated shortness of breath. She does not have cough however does have oxygen in place which is not typical for her. She was treated a few weeks ago for an upper respiratory infection and has been in the process of evaluation for home oxygen. Overall the course of symptoms has persisted. No other changes in health, exacerbating, or alleviating factors identified. Review of Systems General: Reports: 10 or more systems reviewed and unremarkable except in HPI and below PFSH ED PFSH: Medical History Atypical chest pain Bipolar depression CAD (coronary artery disease) Chest pain Chronic headache Chronic pain syndrome Due to her weight and other comorbidities I do not think that there is much that pain management would be able to do. They can do localized injections or treatments on specific joints but she would never be a surgical candidate. Constipation, chronic COPD (chronic obstructive pulmonary disease) Diabetes mellitus type 2 in obese Fibromyalgia Generalized anxiety disorder GERD (gastroesophageal reflux disease) Hyperlipemia Hypertension, benign Insomnia Major depressive disorder, recurrent, moderate Mixed stress and urge urinary incontinence Nicotine dependence, cigarettes, with other nicotine-induced disorders NONA (obstructive sleep apnea) Uses CPAP Overactive bladder Panic disorder [episodic paroxysmal anxiety] Paroxysmal A-fib Paroxysmal atrial fibrillation (~08/2020) Peripheral Vascular Disease RLS (restless legs syndrome) Surgical History H/O thyroidectomy H/O: hysterectomy Hx of cholecystectomy S/P appendectomy Family History Mother , at age 75 Hypertension Father , at age 87 Hypertension Denies family history of Lung disease Stroke Social History Smoking and tobacco status: current every day smoker cigarettes Packs smoked per day: 1 Second hand smoke exposure: No Alcohol intake: never Adopted: No Caregiver/support person: No Lives independently: Yes Housing: Apartment Marital status: / Number of children: 8 Number of grandchildren: 14 Highest education level completed: Some College, No Degree service: No Current occupational status: disabled Pets and animals: Yes Pets & animals: dog(s) History of recent travel: No Leisure activites: art, music, reading and other Sexually active: No Current gender identity: Female Lilliam/Caodaism: Amish Special lilliam needs: No Agree to transfusion: Yes Financial difficulty paying for basics: Not Very Hard Female Reproductive History: Para: 8 Spontaneous abortions: No Physical Exam Narrative: EXAM NARRATIVE: GENERAL/CONSTITUTIONAL -nontoxic appearing. Mildly uncomfortable Eyes - PERRL, no conjunctival injection ENMT - Atraumatic external nose and ears. NECK - supple. trachea midline CARDIOVASCULAR - regular rate and rhythm. Diminished pulses bilateral lower extremities. There are chronic vascular appearing changes of bilateral lower extremities. RESPIRATORY - clear to auscultation bilaterally. Supplemental oxygen in place ABDOMEN/GI - Nontender/Nondistended. MSK - Extremities without obvious deformity or tenderness to palpation SKIN - Warm, Dry NEURO - alert and appropriately oriented. Moves all extremities equally. Course ED course: - Patient was seen and evaluated by me at bedside - Patient placed on cardiac monitors, IV access obtained - Initial evaluation notable for exam as above -Symptom treatment ordered - Labs notable for no leukocytosis. No significant metabolic abnormalities to explain patient's symptoms. Mild transaminitis of unclear etiology again noted. - Imaging notable for no acute finding - Upon serial reexamination after treatment the patient was mildly improved -Patient care handed off to overnight ED physician Dr. Ram pending repeat troponin. Vital Signs: Vital signs: Vital Signs Temperature 98.3 F 04/15/21 20:28 Pulse Rate 113 H 04/15/21 23:32 Respiratory Rate 18 04/15/21 23:32 Blood Pressure 142/56 04/15/21 23:32 Pulse Oximetry 91 04/15/21 23:32 MDM - Chest Pain Medical Records: Attestation: I reviewed the patient's medical records. Lab Data: Attestation: I reviewed the patient's lab results. Labs: Lab Results 04/15/21 04/15/21 04/15/21 20:50 20:50 20:50 WBC 10.1 10^3/uL H 10 ^3/uL (4.0-10.0) RBC 4.66 10^6/uL 10^6 /uL (4.1-5.3) Hgb 13.8 g/dL g/dL (11.5-15.3) Hct 42.5 % % (37.0-47.0) MCV 91.2 fl fl (81-99) MCH 29.6 pg pg (28.0-34.0) MCHC 32.5 g/dL g/dL (30.0-36.0) RDW 13.1 % % (12.1-15.1) Plt Count 234 10^3/cmm 10^3 /cmm (130-400) MPV 11.3 fL H fL (7.4-10.4) Neut % (Auto) 59.2 % % Lymph % (Auto) 32.6 % % Blount % (Auto) 5.8 % % Eos % (Auto) 1.7 % % Baso % (Auto) 0.4 % % Neut # (Auto) 5.96 10^3/uL 10^3 /uL (1.8-7.7) Lymph # (Auto) 3.3 10^3/uL 10^3/ uL (0.8-4.8) Blount # (Auto) 0.6 10^3/uL 10^3/ uL (0.2-0.9) Eos # (Auto) 0.2 10^3/uL 10^3/ uL (0.0-0.8) Baso # (Auto) 0.0 10^3/uL 10^3/ uL (0.0-0.1) Nucleated RBC % (a uto) 0 % % Nucleated RBCs # 0.0 /100WBC /100W BC Sodium 139 mmol/L mmol/L (136-145) Potassium 3.9 mmol/L mmol/L (3.5-5.1) Chloride 101 mmol/L mmol/L (98-107) Carbon Dioxide 23 mmol/L mmol/L (22-29) Anion Gap 18.9 (5-19) BUN 8 mg/dL mg/dL (8-23) Creatinine 0.6 mg/dL mg/dL (0.5-0.9) GFR Calculation 101.0 mL/min mL/m in (90-130) Glucose 228 mg/dL H mg/dL (65-115) Calculated Osmolal ity 294 mOsm/kg mOsm/ kg (285-295) Calcium 8.3 mg/dL L mg/dL (8.5-10.5) Total Bilirubin 0.2 mg/dL mg/dL (0.15-1.2) AST 34 U/L H U/L (0-32) ALT 34 U/L H U/L (0-33) Alkaline Phosphata se 132 IU/L H IU/L (35-105) Troponin T Baselin e 13 ng/L H ng/L (0-10) Troponin T 120 [address] [place] Delta Troponin T NT-Pro-B Natriuret Pep 498 pg/mL H pg/mL (0-125) Total Protein 6.3 g/dL L g/dL (6.6-8.7) Albumin 3.7 g/dL g/dL (3.5-5.2) Globulin 2.6 g/dL g/dL (1.3-4.6) Lipase 56 U/L U/L (13-60) 04/15/21 22:46 WBC RBC Hgb Hct MCV MCH MCHC RDW Plt Count MPV Neut % (Auto) Lymph % (Auto) Blount % (Auto) Eos % (Auto) Baso % (Auto) Neut # (Auto) Lymph # (Auto) Blount # (Auto) Eos # (Auto) Baso # (Auto) Nucleated RBC % (a uto) Nucleated RBCs # Sodium Potassium Chloride Carbon Dioxide Anion Gap BUN Creatinine GFR Calculation Glucose Calculated Osmolal ity Calcium Total Bilirubin AST ALT Alkaline Phosphata se Troponin T Baselin e Troponin T [address] [place] 12.98 ng/L H ng/L (0-10) Delta Troponin T -0.02 ABS# L ABS# (0-10) NT-Pro-B Natriuret Pep Total Protein Albumin Globulin Lipase EKG Data^: EKG 1: Attestation: I personally reviewed and interpreted this EKG as follows: EKG interpretation date: 12/15/21 EKG interpretation time: 20:46 Interpretation: Twelve-lead EKG shows an irregular rhythm at a rate of 98. MO interval not present, QRS duration 89, QTc 406. Left axis deviation. Interpretation: Atrial flutter, similar to prior EKG 2: Attestation: I personally reviewed and interpreted this EKG as follows: EKG interpretation date: 04/15/21 EKG interpretation time: 22:48 Interpretation: Twelve-lead EKG shows an irregular rhythm at a rate of 110. MO interval not present, QRS duration 96, QTc 457. Left axis deviation. Interpretation: Atrial flutter, similar to prior. Tachycardia. Discharge Plan Discharge Patient Disposition: Home Clinical Impression: Chest pain, Hyperglycemia, Transaminitis Condition: Stable Prescriptions: No Action nitroglycerin 0.4 mg tablet, sublingual 0.4 mg SUBLINGUAL Q5M PRN (Reason: Chest Pain) RF: 0 albuterol sulfate [Ventolin HFA] 90 mcg/actuation HFA aerosol inhaler 2 puff INHALATION Q6H PRN (Reason: shortness of breath or wheezing) Qty: 8.5 RF: 5 melatonin 5 mg capsule 10 mg PO .at bedtime PRN (Reason: insomnia) RF: 0 metoprolol tartrate 100 mg tablet 100 mg PO Q12H 30 Days Qty: 60 RF: 5 miscellaneous medical supply Misc See Rx Instructions miscellaneous .COMPLEX Qty: 1 RF: 0 oxybutynin chloride 15 mg tablet extended release 24 hr 15 mg PO DAILY 90 Days Qty: 90 RF: 1 metformin 1,000 mg tablet See Rx Instructions .ROUTE .COMPLEX Qty: 60 RF: 2 isosorbide mononitrate 30 mg tablet extended release 24 hr See Rx Instructions .ROUTE .COMPLEX Qty: 30 RF: 5 apixaban 5 mg tablet 5 mg PO BID 30 Days Qty: 60 RF: 5 (DME) Blood Glucose Test Strip See Rx Instructions .ROUTE .MEDSUPPLY Qty: 50 RF: 11 (DME) miscellaneous medical supply Misc See Rx Instructions .Route Qty: 1 RF: 0 diclofenac sodium 50 mg tablet,delayed release (DR/EC) 50 mg PO BID PRN (Reason: pain) 30 Days Qty: 60 RF: 2 duloxetine 60 mg capsule,delayed release(DR/EC) See Rx Instructions .ROUTE .COMPLEX Qty: 30 RF: 3 buspirone 10 mg tablet See Rx Instructions .ROUTE .COMPLEX Qty: 90 RF: 3 bupropion HCl 300 mg tablet extended release 24 hr See Rx Instructions .ROUTE .COMPLEX Qty: 30 RF: 3 pramipexole 0.25 mg tablet See Rx Instructions .ROUTE .COMPLEX Qty: 30 RF: 3 famotidine 20 mg tablet See Rx Instructions .ROUTE .COMPLEX Qty: 180 RF: 1 furosemide 40 mg tablet See Rx Instructions .ROUTE .COMPLEX Qty: 180 RF: 1 docusate sodium 100 mg capsule 200 mg PO BID 30 Days Qty: 120 RF: 2 cyclobenzaprine 5 mg tablet See Rx Instructions .ROUTE .COMPLEX Qty: 120 RF: 2 potassium chloride 20 mEq tablet,ER particles/crystals See Rx Instructions .ROUTE .COMPLEX Qty: 180 RF: 1 miscellaneous medical supply Misc 1 ea miscellaneous ONCE Qty: 1 RF: 0 (DME) Depend Underwear For Women XL Misc See Rx Instructions .Route Qty: 360 RF: 11 suvorexant 10 mg tablet 10 mg PO .at bedtime Qty: 30 RF: 0 aspirin [Adult Aspirin Regimen] 81 mg tablet,delayed release (DR/EC) 81 mg PO DAILY@0800 RF: 0 gemfibrozil 600 mg tablet 600 mg PO DAILY@1999 RF: 0 loratadine 10 mg tablet 10 mg PO BEDTIME@1999 PRN (Reason: allergy symptoms) RF: 0 albuterol sulfate 90 mcg/actuation HFA aerosol inhaler 2 inh INHALATION Q4H PRN (Reason: shortness of breath or wheezing) Qty: 18 RF: 0 One A Day 1 tab PO DAILY@1999 RF: 0 Vitamin C 1 tab PO DAILY@1999 RF: 0 prednisone 5 mg tablet 5 mg PO DAILY Qty: 5 RF: 0 doxycycline hyclate 100 mg tablet 100 mg PO BID 7 Days Qty: 14 RF: 0 Discharge Orders: Discharge ED (Routine); Ordered 04/15/21 Ordered By: Claudia Ram Referrals: Kristine Rodriguez MD [Primary Care Provider] - Discharge Diet: Usual diet Discharge Activity: Resume usual activity Patient Instructions: Chest Pain (ED) Activity Restrictions/Additional Instructions: Thank you for visiting the emergency department. You were seen and evaluated for chest pain. The exact cause of your symptoms is unclear however does not require further inpatient evaluation at this time. Please follow-up with cardiology. Please return to the emergency department for worsening symptoms or anything else that you are concerned about and feel needs emergency department evaluation. As an incidental finding you do have minimal elevation in your liver enzymes, please follow-up for repeat labs as well. 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 They can do localized injections or treatments on specific joints but she would never be a surgical candidate. Constipation, chronic COPD (chronic obstructive pulmonary disease) Diabetes mellitus type 2 in obese Fibromyalgia Generalized anxiety disorder GERD (gastroesophageal reflux disease) Hyperlipemia Hypertension, benign Insomnia Major depressive disorder, recurrent, moderate Mixed stress and urge urinary incontinence Nicotine dependence, cigarettes, with other nicotine-induced disorders NONA (obstructive sleep apnea) Uses CPAP Overactive bladder Panic disorder [episodic paroxysmal anxiety] Paroxysmal A-fib Paroxysmal atrial fibrillation (~08/2020) Peripheral Vascular Disease RLS (restless legs syndrome) Surgical History H/O thyroidectomy H/O: hysterectomy Hx of cholecystectomy S/P appendectomy Family History Mother , at age 75 Hypertension Father , at age 87 Hypertension Denies family history of Lung disease Stroke Social History Smoking and tobacco status: current every day smoker cigarettes Packs smoked per day: 1 Second hand smoke exposure: No Alcohol intake: never Adopted: No Caregiver/support person: No Lives independently: Yes Housing: Apartment Marital status: / Number of children: 8 Number of grandchildren: 14 Highest education level completed: Some College, No Degree service: No Current occupational status: disabled Pets and animals: Yes Pets & animals: dog(s) History of recent travel: No Leisure activites: art, music, reading and other Sexually active: No Current gender identity: Female Lilliam/Caodaism: Amish Special lilliam needs: No Agree to transfusion: Yes Financial difficulty paying for basics: Not Very Hard Course Vital Signs: Vital signs: Vital Signs Temperature 98.3 F 04/15/21 20:28 Pulse Rate 113 H 04/15/21 23:32 Respiratory Rate 18 04/15/21 23:32 Blood Pressure 142/56 04/15/21 23:32 Pulse Oximetry 91 04/15/21 23:32 MDM - Chest Pain MDM Narrative: Medical decision making narrative: Patient presents here with chest pain atypical in nature repeat troponin here is negative she is pain-free now patient is well-appearing pain-free CT abdomen is normal as well she stable for discharge is to follow-up with PCP and return if worsening. Lab Data: Labs: Lab Results 04/15/21 04/15/21 04/15/21 20:50 20:50 20:50 WBC 10.1 10^3/uL H 10 ^3/uL (4.0-10.0) RBC 4.66 10^6/uL 10^6 /uL (4.1-5.3) Hgb 13.8 g/dL g/dL (11.5-15.3) Hct 42.5 % % (37.0-47.0) MCV 91.2 fl fl (81-99) MCH 29.6 pg pg (28.0-34.0) MCHC 32.5 g/dL g/dL (30.0-36.0) RDW 13.1 % % (12.1-15.1) Plt Count 234 10^3/cmm 10^3 /cmm (130-400) MPV 11.3 fL H fL (7.4-10.4) Neut % (Auto) 59.2 % % Lymph % (Auto) 32.6 % % Blount % (Auto) 5.8 % % Eos % (Auto) 1.7 % % Baso % (Auto) 0.4 % % Neut # (Auto) 5.96 10^3/uL 10^3 /uL (1.8-7.7) Lymph # (Auto) 3.3 10^3/uL 10^3/ uL (0.8-4.8) Blount # (Auto) 0.6 10^3/uL 10^3/ uL (0.2-0.9) Eos # (Auto) 0.2 10^3/uL 10^3/ uL (0.0-0.8) Baso # (Auto) 0.0 10^3/uL 10^3/ uL (0.0-0.1) Nucleated RBC % (a uto) 0 % % Nucleated RBCs # 0.0 /100WBC /100W BC Sodium 139 mmol/L mmol/L (136-145) Potassium 3.9 mmol/L mmol/L (3.5-5.1) Chloride 101 mmol/L mmol/L (98-107) Carbon Dioxide 23 mmol/L mmol/L (22-29) Anion Gap 18.9 (5-19) BUN 8 mg/dL mg/dL (8-23) Creatinine 0.6 mg/dL mg/dL (0.5-0.9) GFR Calculation 101.0 mL/min mL/m in (90-130) Glucose 228 mg/dL H mg/dL (65-115) Calculated Osmolal ity 294 mOsm/kg mOsm/ kg (285-295) Calcium 8.3 mg/dL L mg/dL (8.5-10.5) Total Bilirubin 0.2 mg/dL mg/dL (0.15-1.2) AST 34 U/L H U/L (0-32) ALT 34 U/L H U/L (0-33) Alkaline Phosphata se 132 IU/L H IU/L (35-105) Troponin T Baselin e 13 ng/L H ng/L (0-10) Troponin T 120 Min [place] Delta Troponin T NT-Pro-B Natriuret Pep 498 pg/mL H pg/mL (0-125) Total Protein 6.3 g/dL L g/dL (6.6-8.7) Albumin 3.7 g/dL g/dL (3.5-5.2) Globulin 2.6 g/dL g/dL (1.3-4.6) Lipase 56 U/L U/L (13-60) 04/15/21 22:46 WBC RBC Hgb Hct MCV MCH MCHC RDW Plt Count MPV Neut % (Auto) Lymph % (Auto) Blount % (Auto) Eos % (Auto) Baso % (Auto) Neut # (Auto) Lymph # (Auto) Blount # (Auto) Eos # (Auto) Baso # (Auto) Nucleated RBC % (a uto) Nucleated RBCs # Sodium Potassium Chloride Carbon Dioxide Anion Gap BUN Creatinine GFR Calculation Glucose Calculated Osmolal ity Calcium Total Bilirubin AST ALT Alkaline Phosphata se Troponin T Baselin e Troponin T [address] [place] 12.98 ng/L H ng/L (0-10) Delta Troponin T -0.02 ABS# L ABS# (0-10) NT-Pro-B Natriuret Pep Total Protein Albumin Globulin Lipase Imaging Data^: CT Abd/Pel: Attestation: I personally reviewed and interpreted this imaging study as follows: Radiologist's impression: [address] [place] [address] CT Scan Report Signed Patient: Lin Henao Unit #: [id number] : 1955 Age/Sex: 65 / F ADM Date: 04/15/21 Loc: ER Room/Bed: Attending Dr: Ordering Provider/Ordering MD: Joce Westfall MD Date of Service: 04/15/21 Procedure(s): CT abdomen pelvis w con* [id number] Accession Number(s): [id number] Report Number: [id number] PROCEDURE INFORMATION: Exam: CT Abdomen And Pelvis With Contrast Exam date and time: 04/15/2021 9:41 PM Age: 65 years old Clinical indication: Abdominal pain; Localized; Upper; Prior surgery; Surgery type: Gb, hyst; Additional info: Cramping upper abdominal pain TECHNIQUE: Imaging protocol: Computed tomography of the abdomen and pelvis with contrast. Radiation optimization: All CT scans at this facility use at least one of these dose optimization techniques: automated exposure control; mA and/or kV adjustment per patient size (includes targeted exams where dose is matched to clinical indication); or iterative reconstruction. Contrast material: OMNI 300; Contrast volume: 95 ml; Contrast route: INTRAVENOUS (IV); COMPARISON: CR XR pelvis 1-2V* [id number] 10/08/2020 9:39 AM RADIATION DOSE METRICS: Total DLP (mGy-cm): 1786.38 FINDINGS: Liver: The liver is unremarkable in appearance. Gallbladder and bile ducts: The gallbladder is surgically absent. Pancreas: The pancreas is normal in appearance. No pancreatic duct dilatation. Spleen: The spleen is normal in size and appearance. Adrenal glands: Unremarkable. No mass. Kidneys and ureters: Simple appearing renal cysts measuring up to 2 cm. No solid renal mass. No hydronephrosis. Ureters appear unremarkable. Stomach and bowel: 3.8 cm duodenal diverticulum. No acute abnormality of the small bowel. Diverticulosis of the colon. No evidence of acute diverticulitis. Appendix: No evidence of appendicitis. Intraperitoneal space: No free air. No significant fluid collection. Vasculature: The aorta is atherosclerotic. No aortic aneurysm. Lymph nodes: No pathologically enlarged lymph nodes. Urinary bladder: The urinary bladder is unremarkable in appearance. Reproductive: The uterus is not visualized, consistent with hysterectomy. Bones/joints: Bilateral L5 spondylolysis, associated with grade 2 L5-S1 spondylolisthesis and advanced L5-S1 disc degeneration. Soft tissues: The soft tissues appear unremarkable. CT/CT abdomen pelvis w con* [id number] IMPRESSION: 1. Diverticulosis of the colon. No evidence of acute diverticulitis. 2. No acute abnormality demonstrated in the abdomen and pelvis. 3. Bilateral L5 spondylolysis, associated with grade 2 L5-S1 spondylolisthesis and advanced L5-S1 disc degeneration. COMMENTS: Consistent with the [employer]'s Incidental Findings Committee white paper (J Am Dolores Radiol 2018): Any incidental renal lesion less than 1 cm or classified as too small to characterize, or any incidental cystic renal lesion characterized as simple-appearing, is likely benign. No follow-up imaging is recommended for these lesions per consensus recommendations based on imaging criteria. Dictated By: Corbin Blanc MD Signed By: Corbin Blanc MD Signed Date/Time: 04/15/212212 DD/ 40 Discharge Plan Discharge Patient Disposition: Home Clinical Impression: Chest pain, Hyperglycemia, Transaminitis Condition: Stable Prescriptions: No Action nitroglycerin 0.4 mg tablet, sublingual 0.4 mg SUBLINGUAL Q5M PRN (Reason: Chest Pain) RF: 0 albuterol sulfate [Ventolin HFA] 90 mcg/actuation HFA aerosol inhaler 2 puff INHALATION Q6H PRN (Reason: shortness of breath or wheezing) Qty: 8.5 RF: 5 melatonin 5 mg capsule 10 mg PO .at bedtime PRN (Reason: insomnia) RF: 0 metoprolol tartrate 100 mg tablet 100 mg PO Q12H 30 Days Qty: 60 RF: 5 miscellaneous medical supply [facility] [place] See Rx Instructions miscellaneous .COMPLEX Qty: 1 RF: 0 oxybutynin chloride 15 mg tablet extended release 24 hr 15 mg PO DAILY 90 Days Qty: 90 RF: 1 metformin 1,000 mg tablet See Rx Instructions .ROUTE .COMPLEX Qty: 60 RF: 2 isosorbide mononitrate 30 mg tablet extended release 24 hr See Rx Instructions .ROUTE .COMPLEX Qty: 30 RF: 5 apixaban 5 mg tablet 5 mg PO BID 30 Days Qty: 60 RF: 5 (DME) Blood Glucose Test Strip See Rx Instructions .ROUTE .MEDSUPPLY Qty: 50 RF: 11 (DME) miscellaneous medical supply [facility] See Rx Instructions .Route Qty: 1 RF: 0 diclofenac sodium 50 mg tablet,delayed release (DR/EC) 50 mg PO BID PRN (Reason: pain) 30 Days Qty: 60 RF: 2 duloxetine 60 mg capsule,delayed release(DR/EC) See Rx Instructions .ROUTE .COMPLEX Qty: 30 RF: 3 buspirone 10 mg tablet See Rx Instructions .ROUTE .COMPLEX Qty: 90 RF: 3 bupropion HCl 300 mg tablet extended release 24 hr See Rx Instructions .ROUTE .COMPLEX Qty: 30 RF: 3 pramipexole 0.25 mg tablet See Rx Instructions .ROUTE .COMPLEX Qty: 30 RF: 3 famotidine 20 mg tablet See Rx Instructions .ROUTE .COMPLEX Qty: 180 RF: 1 furosemide 40 mg tablet See Rx Instructions .ROUTE .COMPLEX Qty: 180 RF: 1 docusate sodium 100 mg capsule 200 mg PO BID 30 Days Qty: 120 RF: 2 cyclobenzaprine 5 mg tablet See Rx Instructions .ROUTE .COMPLEX Qty: 120 RF: 2 potassium chloride 20 mEq tablet,ER particles/crystals See Rx Instructions .ROUTE .COMPLEX Qty: 180 RF: 1 miscellaneous medical supply Misc 1 ea miscellaneous ONCE Qty: 1 RF: 0 (DME) Depend Underwear For Women XL Misc See Rx Instructions .Route Qty: 360 RF: 11 suvorexant 10 mg tablet 10 mg PO .at bedtime Qty: 30 RF: 0 aspirin [Adult Aspirin Regimen] 81 mg tablet,delayed release (DR/EC) 81 mg PO DAILY@0800 RF: 0 gemfibrozil 600 mg tablet 600 mg PO DAILY@1999 RF: 0 loratadine 10 mg tablet 10 mg PO BEDTIME@1999 PRN (Reason: allergy symptoms) RF: 0 albuterol sulfate 90 mcg/actuation HFA aerosol inhaler 2 inh INHALATION Q4H PRN (Reason: shortness of breath or wheezing) Qty: 18 RF: 0 One A Day 1 tab PO DAILY@1999 RF: 0 Vitamin C 1 tab PO DAILY@1999 RF: 0 prednisone 5 mg tablet 5 mg PO DAILY Qty: 5 RF: 0 doxycycline hyclate 100 mg tablet 100 mg PO BID 7 Days Qty: 14 RF: 0 Discharge Orders: Discharge ED (Routine); Ordered 04/15/21 Ordered By: Claudia Ram Referrals: Kristine Rodriguez MD [Primary Care Provider] - Discharge Diet: Usual diet Discharge Activity: Resume usual activity Patient Instructions: Chest Pain (ED) Activity Restrictions/Additional Instructions: Thank you for visiting the emergency department. You were seen and evaluated for chest pain. The exact cause of your symptoms is unclear however does not require further inpatient evaluation at this time. Please follow-up with cardiology. Please return to the emergency department for worsening symptoms or anything else that you are concerned about and feel needs emergency department evaluation. As an incidental finding you do have minimal elevation in your liver enzymes, please follow-up for repeat labs as well. 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
--- NOTE | 2021-04-15 20:46 | XRR_ITS ---
PROCEDURE INFORMATION: Exam: XR Chest Exam date and time: 04/15/2021 8:46 PM Age: 65 years old Clinical indication: Pain; Left-sided; Additional info: Chest pain TECHNIQUE: Imaging protocol: XR of the chest. Views: 1 view. COMPARISON: CR (CHEST, ) 04/03/2021 1:33 AM FINDINGS: Lungs: No consolidation. Pleural spaces: No pleural effusion. No pneumothorax. Heart/Mediastinum: No cardiomegaly. Bones/joints: Degenerative spine changes are noted. XR/XR chest 1V portable [id number] IMPRESSION: 1. No acute abnormality demonstrated. 2. There is no interval change from the prior examination.
--- NOTE | 2021-04-15 20:46 | ECG_ITS ---
[facility] Test Date: 2021-04-15 Pat Name: Lin Henao Department: Room: Gender: Female Embossograph Operator: : 1955 Requested By: Joce Westfall Order Number: [id number] Reading MD: BIJAL PARK Measurements Intervals [place] Rate: 98 P: [place]: QRS: -10 QRSD: 89 T: -1 QT: 350 QTc: 449 Interpretive Statements ATRIAL FLUTTER/TACHYCARDIA MODERATE ST DEPRESSION [0.05+ mV ST DEPRESSION] Compared to ECG 04/03/2021 03:35:34 ST (T wave) deviation now present Electronically Signed On 04-16-2021 19:55:36 MANAGER MERCHANDISE by BIJAL PARK [id number]
[2021-04-15 20:56] LABS: Basophils % 0.4 %; Eosinophils # 0.2 10^3/uL (0.0-0.8); Eosinophils % 1.7 %; Hematocrit 42.5 % (37.0-47.0); Hemoglobin 13.8 g/dL (11.5-15.3); Lymphocytes # 3.3 10^3/uL (0.8-4.8); Lymphocytes % 32.6 %; Mean Corpuscular HGB Conc 32.5 g/dL (30.0-36.0); Mean Corpuscular Hemoglobin 29.6 pg (28.0-34.0); Mean Corpuscular Volume 91.2 fl (81-99); Mean Platelet Volume 11.3 fL (7.4-10.4); Monocytes # 0.6 10^3/uL (0.2-0.9); Monocytes % 5.8 %; Neutrophils # 5.96 10^3/uL (1.8-7.7); Neutrophils % 59.2 %; Nucleated Red Blood Cells % 0 %; Platelet Count 234 10^3/cmm (130-400); Red Blood Count 4.66 10^6/uL (4.1-5.3); Red Cell Distribution Width 13.1 % (12.1-15.1); White Blood Count 10.1 10^3/uL (4.0-10.0)
[2021-04-15] MEDS: morphine 4 mg/mL SDV 1 mL IVP (20:56)
[2021-04-15] MEDS: sodium chloride 0.9% 500 ML 999 ML IV (20:56)
[2021-04-15] MEDS: ondansetron 2 mg/ML SDV 2 mL 4 MG IVP (20:56)
[2021-04-15 21:20] LABS: Troponin(5th) Baseline 13 ng/L (0-10)
[2021-04-15 21:24] LABS: Alanine Aminotransferase 34 U/L (0-33); Albumin Level 3.7 g/dL (3.5-5.2); Alkaline Phosphatase 132 IU/L (35-105); Anion Gap 18.9 (5-19); Aspartate Amino Transferase 34 U/L (0-32); Blood Urea Nitrogen 8 mg/dL (8-23); Calcium 8.3 mg/dL (8.5-10.5); Carbon Dioxide 23 mmol/L (22-29); Chloride 101 mmol/L (98-107); Globulin 2.6 g/dL (1.3-4.6); Glucose 228 mg/dL (65-115); Lipase 56 U/L (13-60); NT Pro B Type Natriuretic Pept 498 pg/mL (0-125); Osmolality Calculated 294 mOsm/kg (285-295); Potassium 3.9 mmol/L (3.5-5.1); Sodium 139 mmol/L (136-145); Total Bilirubin 0.2 mg/dL (0.15-1.2); Total Protein 6.3 g/dL (6.6-8.7)
--- NOTE | 2021-04-15 21:41 | CTR_ITS ---
PROCEDURE INFORMATION: Exam: CT Abdomen And Pelvis With Contrast Exam date and time: 04/15/2021 9:41 PM Age: 65 years old Clinical indication: Abdominal pain; Localized; Upper; Prior surgery; Surgery type: Gb, hyst; Additional info: Cramping upper abdominal pain TECHNIQUE: Imaging protocol: Computed tomography of the abdomen and pelvis with contrast. Radiation optimization: All CT scans at this facility use at least one of these dose optimization techniques: automated exposure control; mA and/or kV adjustment per patient size (includes targeted exams where dose is matched to clinical indication); or iterative reconstruction. Contrast material: OMNI 300; Contrast volume: 95 ml; Contrast route: INTRAVENOUS (IV); COMPARISON: CR XR pelvis 1-2V* [id number] 10/08/2020 9:39 AM RADIATION DOSE METRICS: Total DLP (mGy-cm): 1786.38 FINDINGS: Liver: The liver is unremarkable in appearance. Gallbladder and bile ducts: The gallbladder is surgically absent. Pancreas: The pancreas is normal in appearance. No pancreatic duct dilatation. Spleen: The spleen is normal in size and appearance. Adrenal glands: Unremarkable. No mass. Kidneys and ureters: Simple appearing renal cysts measuring up to 2 cm. No solid renal mass. No hydronephrosis. Ureters appear unremarkable. Stomach and bowel: 3.8 cm duodenal diverticulum. No acute abnormality of the small bowel. Diverticulosis of the colon. No evidence of acute diverticulitis. Appendix: No evidence of appendicitis. Intraperitoneal space: No free air. No significant fluid collection. Vasculature: The aorta is atherosclerotic. No aortic aneurysm. Lymph nodes: No pathologically enlarged lymph nodes. Urinary bladder: The urinary bladder is unremarkable in appearance. Reproductive: The uterus is not visualized, consistent with hysterectomy. Bones/joints: Bilateral L5 spondylolysis, associated with grade 2 L5-S1 spondylolisthesis and advanced L5-S1 disc degeneration. Soft tissues: The soft tissues appear unremarkable. CT/CT abdomen pelvis w con* [id number] IMPRESSION: 1. Diverticulosis of the colon. No evidence of acute diverticulitis. 2. No acute abnormality demonstrated in the abdomen and pelvis. 3. Bilateral L5 spondylolysis, associated with grade 2 L5-S1 spondylolisthesis and advanced L5-S1 disc degeneration. COMMENTS: Consistent with the [employer]'s Incidental Findings Committee white paper (J Am Dolores Radiol 2018): Any incidental renal lesion less than 1 cm or classified as too small to characterize, or any incidental cystic renal lesion characterized as simple-appearing, is likely benign. No follow-up imaging is recommended for these lesions per consensus recommendations based on imaging criteria.
[2021-04-15] MEDS: iohexol 300 mg/mL 100 mL Btl IV (21:59)
--- NOTE | 2021-04-15 22:46 | ECG_ITS ---
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 Health Care Worker: : 1955 Requested By: Joce Westfall Order Number: [id number] Reading MD: BIJAL PARK Measurements Intervals [place] Rate: 110 P: [place]: QRS: -23 QRSD: 96 T: -23 QT: 392 QTc: 531 Interpretive Statements ATRIAL FIBRILLATION WITH RAPID VENTRICULAR RESPONSE BORDERLINE LEFT AXIS DEVIATION [QRS AXIS < -20] LOW QRS VOLTAGE IN PRECORDIAL LEADS [QRS DEFLECTION < 1.0 mV IN CHEST LEADS] PATTERN CONSISTENT WITH PULMONARY DISEASE MODERATE T-WAVE ABNORMALITY, CONSIDER INFERIOR ISCHEMIA [-0.1+ mV T-WAVE IN II/aVF] Compared to ECG 04/03/2021 03:35:34 Low QRS voltage now present T-wave abnormality now present Possible ischemia now present Atrial flutter no longer present Electronically Signed On 04-16-2021 19:56:48 CHILD CARE CENTER ADMINISTRATOR by BIJAL PARK [id number]
[2021-04-15 22:59] VITALS: BP 131/98; PULSE 105; RESP 16; O2SAT 100
[2021-04-15 23:15] LABS: Troponin 5 2HR 12.98 ng/L (0-10)
[2021-04-15 23:17] LABS: Troponin 5 2HR Delta -0.02 ABS# (0-10)
[2021-04-15 23:32] VITALS: BP 142/56; PULSE 113; RESP 18; O2SAT 91
== END 2021-04-15 23:20 | disposition home or self-care (01) ==
PROVIDERS: Emergency Medicine; Emergency Provider Emergency Medicine; PCP Family Medicine
DX: R07.9 Chest pain, unspecified (principal); R74.01 Elevation of levels of liver transaminase levels; E11.65 Type 2 diabetes mellitus with hyperglycemia; I25.10 Atherosclerotic heart disease of native coronary artery without angina pectoris; J44.9 Chronic obstructive pulmonary disease, unspecified; E78.5 Hyperlipidemia, unspecified; F17.210 Nicotine dependence, cigarettes, uncomplicated; Z79.84 Long term (current) use of oral hypoglycemic drugs; Z79.82 Long term (current) use of aspirin
CPT/HCPCS: 71045; 74177; 80053; 83690; 83880; 84484; 85025; 93005; 96374; 96375; 99283; J2270; J2405; J7040; Q9967

== ENCOUNTER 2021-04-25 14:47 | Emergency (ER) | payer MEDICARE, MEDICAID, SELFPAY ==
[2021-04-16 10:31] VITALS: BP 134/75; BMI 41.9
[2021-04-25] VITALS (8 sets, daily range): BP systolic 107–174; BP diastolic 66–90; PULSE 87–115; RESP 14–27; TEMP 37.2; O2SAT 90–96; BMI 42.9
--- NOTE | 2021-04-25 14:50 | ED_ITS ---
HPI - SOB/Dyspnea General: Chief Complaint: Shortness of Breath/Dyspnea Stated Complaint: RESP DISTRESS Time Seen by Provider: 04/25/21 14:50 History of Present Illness: HPI Narrative: Ms. Henao is a 65-year-old lady with history of hypertension, hyperlipidemia, peripheral arterial disease, diabetes, COPD, and history of DVT on anticoagulation who presents emergency department due to shortness of breath. She reports pain to baseline health earlier today. At approximately 115 today she had sudden onset of a choking sensation and subsequently developed shortness of breath. She was noneating at the time and does not recall anything that would have made her choke. She has had multiple coughing fits since that time including severe enough to cause urinary incontinence. She has associated right posterior chest pain without significant radiation. Symptom intensity is moderate. Course has persisted. No other specific changes in health, exacerbating, relieving factors identified. She reports compliance with her medication regimen. Review of Systems General: Reports: 10 or more systems reviewed and unremarkable except in HPI and below PFSH ED PFSH: Medical History Atypical chest pain Bipolar depression CAD (coronary artery disease) Chest pain Chronic headache Chronic pain syndrome Due to her weight and other comorbidities I do not think that there is much that pain management would be able to do. They can do localized injections or treatments on specific joints but she would never be a surgical candidate. Constipation, chronic COPD (chronic obstructive pulmonary disease) Diabetes mellitus type 2 in obese Fibromyalgia Generalized anxiety disorder GERD (gastroesophageal reflux disease) Hyperlipemia Hypertension, benign Insomnia Major depressive disorder, recurrent, moderate Mixed stress and urge urinary incontinence Nicotine dependence, cigarettes, with other nicotine-induced disorders NONA (obstructive sleep apnea) Uses CPAP Overactive bladder Panic disorder [episodic paroxysmal anxiety] Paroxysmal A-fib Paroxysmal atrial fibrillation (~08/2020) Peripheral Vascular Disease RLS (restless legs syndrome) Surgical History H/O thyroidectomy H/O: hysterectomy Hx of cholecystectomy S/P appendectomy Family History Mother , at age 75 Hypertension Father , at age 87 Hypertension Denies family history of Lung disease Stroke Social History (Updated 04/29/21 @ 11:03 by Nyla Rueda RN) Smoking and tobacco status: current every day smoker cigarettes Packs smoked per day: 1 Years cigarettes smoked: 44 Second hand smoke exposure: No Alcohol intake: never Adopted: No Caregiver/support person: No Lives independently: Yes Household members: none Housing: Apartment Marital status: / Number of children: 8 Number of grandchildren: 14 Highest education level completed: Some College, No Degree service: No Current occupational status: disabled Pets and animals: Yes Pets & animals: dog(s) History of recent travel: No Leisure activites: art, music, reading and other Sexually active: No Current gender identity: Female Lilliam/Hindu: Episcopalian Special lilliam needs: No Agree to transfusion: Yes Financial difficulty paying for basics: Not Very Hard Female Reproductive History: Para: 8 Spontaneous abortions: No Physical Exam Narrative: EXAM NARRATIVE: GENERAL/CONSTITUTIONAL - mildly ill-appearing. Obese Eyes - PERRL, no conjunctival injection ENMT - Atraumatic external nose and ears. Moist mucous membranes NECK - supple. trachea midline CARDIOVASCULAR - tachycardic rate and regular rhythm. Bilateral lower extremity edema, right greater than left, chronic skin changes likely associated with venous stasis RESPIRATORY - clear to auscultation bilaterally. No retractions or accessory muscle use. ABDOMEN/GI - Nontender/Nondistended. MSK - Extremities without obvious deformity or tenderness to palpation SKIN - Warm, Dry NEURO - alert and appropriately oriented. Moves all extremities equally. Course ED course: - Patient was seen and evaluated by me at bedside - Patient placed on cardiac monitors, IV access obtained - Initial evaluation notable for exam as above -Symptom treatment ordered - Labs notable for no leukocytosis, normal hemoglobin. No acute electrolyte derangement to explain symptoms. Transaminitis of unclear etiology. Delta troponin is negative. D-dimer negative - Imaging notable for no acute finding - Upon serial reexamination after treatment the patient was improved - Based on patient history, evaluation, labs, and imaging as interpreted the most likely cause of the patient's condition is unclear, perhaps related to exacerbation of COPD given clinical history. - The results of ED evaluation were discussed with the patient including prescriptions and/or symptomatic cares (if applicable) including appropriate and responsible use, followup plan, and return precautions. The patient verbalized understanding and felt safe for discharge. - Patient discharged in satisfactory condition. Vital Signs: Vital signs: Vital Signs Temperature 99.0 F 04/25/21 14:55 Pulse Rate 87 04/25/21 19:32 Respiratory Rate 27 H 04/25/21 19:32 Blood Pressure 107/82 04/25/21 19:32 Pulse Oximetry 93 04/25/21 19:32 MDM - SOB/Dyspnea Medical Records: Attestation: I reviewed the patient's medical records. Lab Data: Attestation: I reviewed the patient's lab results. Labs: Lab Results 04/25/21 04/25/21 04/25/21 15:29 15:29 15:29 WBC 8.4 10^3/uL 10^3/ uL (4.0-10.0) RBC 4.85 10^6/uL 10^6 /uL (4.1-5.3) Hgb 14.5 g/dL g/dL (11.5-15.3) Hct 44.8 % % (37.0-47.0) MCV 92.4 fl fl (81-99) MCH 29.9 pg pg (28.0-34.0) MCHC 32.4 g/dL g/dL (30.0-36.0) RDW 13.2 % % (12.1-15.1) Plt Count 227 10^3/cmm 10^3 /cmm (130-400) MPV 11.3 fL H fL (7.4-10.4) Neut % (Auto) 65.0 % % Lymph % (Auto) 27.5 % % Whiteside % (Auto) 5.2 % % Eos % (Auto) 1.7 % % Baso % (Auto) 0.4 % % Neut # (Auto) 5.46 10^3/uL 10^3 /uL (1.8-7.7) Lymph # (Auto) 2.3 10^3/uL 10^3/ uL (0.8-4.8) Whiteside # (Auto) 0.4 10^3/uL 10^3/ uL (0.2-0.9) Eos # (Auto) 0.1 10^3/uL 10^3/ uL (0.0-0.8) Baso # (Auto) 0.0 10^3/uL 10^3/ uL (0.0-0.1) Nucleated RBC % (a uto) 0 % % Nucleated RBCs # 0.0 /100WBC /100W BC D-Dimer Sodium 138 mmol/L mmol/L (136-145) Potassium 4.3 mmol/L mmol/L (3.5-5.1) Chloride 100 mmol/L mmol/L (98-107) Carbon Dioxide 22 mmol/L mmol/L (22-29) Anion Gap 20.3 H (5-19) BUN 11 mg/dL mg/dL (8-23) Creatinine 0.7 mg/dL mg/dL (0.5-0.9) GFR Calculation 84.2 mL/min L mL/ min (90-130) Glucose 222 mg/dL H mg/dL (65-115) Calculated Osmolal ity 292 mOsm/kg mOsm/ kg (285-295) Calcium 8.2 mg/dL L mg/dL (8.5-10.5) Total Bilirubin 0.2 mg/dL mg/dL (0.15-1.2) AST 38 U/L H U/L (0-32) ALT 34 U/L H U/L (0-33) Alkaline Phosphata se 143 IU/L H IU/L (35-105) Troponin T Baselin e 15 ng/L H ng/L (0-10) Troponin T 120 Min [place] Delta Troponin T NT-Pro-B Natriuret Pep 635 pg/mL H pg/mL (0-125) Total Protein 6.8 g/dL g/dL (6.6-8.7) Albumin 3.7 g/dL g/dL (3.5-5.2) Globulin 3.1 g/dL g/dL (1.3-4.6) TSH 0.76 uIU/mL uIU/m L (0.27-4.20) 04/25/21 04/25/21 15:43 17:33 WBC RBC Hgb Hct MCV MCH MCHC RDW Plt Count MPV Neut % (Auto) Lymph % (Auto) [place]ites[place] % (Auto) Eos % (Auto) Baso % (Auto) Neut # (Auto) Lymph # (Auto) [place] # (Auto) Eos # (Auto) Baso # (Auto) Nucleated RBC % (a uto) Nucleated RBCs # D-Dimer 0.38 ug/mIFEU ug/ mIFEU (0-0.59) Sodium Potassium Chloride Carbon Dioxide Anion Gap BUN Creatinine GFR Calculation Glucose Calculated Osmolal ity Calcium Total Bilirubin AST ALT Alkaline Phosphata se Troponin T Baselin e Troponin T 120 Min [place] 13.93 ng/L H ng/L (0-10) Delta Troponin T -1.07 ABS# L ABS# (0-10) NT-Pro-B Natriuret Pep Total Protein Albumin Globulin TSH EKG Data^: EKG 1: Attestation: I personally reviewed and interpreted this EKG as follows: EKG Interpretation Date: 04/25/21 EKG interpretation time: 15:14 Interpretation: Twelve-lead EKG shows a irregular rhythm at a rate of 115. No MN interval, QRS duration 91, QTc 433. Normal axis. Interpretation: Atrial flutter. Similar to prior. Discharge Plan Discharge Patient Disposition: Home Clinical Impression: COPD (chronic obstructive pulmonary disease), Acute exacerbation of chronic obstructive airways disease Condition: Stable Prescriptions: New prednisone 5 mg tablet 5 mg PO DAILY Qty: 5 RF: 0 No Action nitroglycerin 0.4 mg tablet, sublingual 0.4 mg SUBLINGUAL Q5M PRN (Reason: Chest Pain) RF: 0 albuterol sulfate [Ventolin HFA] 90 mcg/actuation HFA aerosol inhaler 2 puff INHALATION Q6H PRN (Reason: shortness of breath or wheezing) Qty: 8.5 RF: 5 melatonin 5 mg capsule 10 mg PO .at bedtime PRN (Reason: insomnia) RF: 0 metoprolol tartrate 100 mg tablet 100 mg PO Q12H 30 Days Qty: 60 RF: 5 miscellaneous medical supply Misc See Rx Instructions miscellaneous .COMPLEX Qty: 1 RF: 0 oxybutynin chloride 15 mg tablet extended release 24 hr 15 mg PO DAILY 90 Days Qty: 90 RF: 1 metformin 1,000 mg tablet See Rx Instructions .ROUTE .COMPLEX Qty: 60 RF: 2 isosorbide mononitrate 30 mg tablet extended release 24 hr See Rx Instructions .ROUTE .COMPLEX Qty: 30 RF: 5 apixaban 5 mg tablet 5 mg PO BID 30 Days Qty: 60 RF: 5 (DME) Blood Glucose Test Strip See Rx Instructions .ROUTE .MEDSUPPLY Qty: 50 RF: 11 (DME) miscellaneous medical supply Misc See Rx Instructions .Route Qty: 1 RF: 0 diclofenac sodium 50 mg tablet,delayed release (/EC) 50 mg PO BID PRN (Reason: pain) 30 Days Qty: 60 RF: 2 duloxetine 60 mg capsule,delayed release(DR/EC) See Rx Instructions .ROUTE .COMPLEX Qty: 30 RF: 3 buspirone 10 mg tablet See Rx Instructions .ROUTE .COMPLEX Qty: 90 RF: 3 bupropion HCl 300 mg tablet extended release 24 hr See Rx Instructions .ROUTE .COMPLEX Qty: 30 RF: 3 pramipexole 0.25 mg tablet See Rx Instructions .ROUTE .COMPLEX Qty: 30 RF: 3 famotidine 20 mg tablet See Rx Instructions .ROUTE .COMPLEX Qty: 180 RF: 1 furosemide 40 mg tablet See Rx Instructions .ROUTE .COMPLEX Qty: 180 RF: 1 docusate sodium 100 mg capsule 200 mg PO BID 30 Days Qty: 120 RF: 2 cyclobenzaprine 5 mg tablet See Rx Instructions .ROUTE .COMPLEX Qty: 120 RF: 2 potassium chloride 20 mEq tablet,ER particles/crystals See Rx Instructions .ROUTE .COMPLEX Qty: 180 RF: 1 miscellaneous medical supply Misc 1 ea miscellaneous ONCE Qty: 1 RF: 0 (DME) Depend [facility] See Rx Instructions .Route Qty: 360 RF: 11 suvorexant 10 mg tablet 10 mg PO .at bedtime Qty: 30 RF: 0 aspirin [Adult Aspirin Regimen] 81 mg tablet,delayed release (DR/EC) 81 mg PO DAILY@0800 RF: 0 gemfibrozil 600 mg tablet 600 mg PO DAILY@1999 RF: 0 loratadine 10 mg tablet 10 mg PO BEDTIME@1999 PRN (Reason: allergy symptoms) RF: 0 albuterol sulfate 90 mcg/actuation HFA aerosol inhaler 2 inh INHALATION Q4H PRN (Reason: shortness of breath or wheezing) Qty: 18 RF: 0 One A Day 1 tab PO DAILY@1999 RF: 0 Vitamin C 1 tab PO DAILY@1999 RF: 0 Discharge Orders: Discharge ED (Routine); Ordered 04/25/21 Ordered By: Joce Westfall Referrals: Kristine Rodriguez MD [Primary Care Provider] - Discharge Diet: Usual diet Discharge Activity: Resume usual activity Patient Instructions: COPD (Chronic Obstructive Pulmonary Disease) (ED), Opioid Safety Activity Restrictions/Additional Instructions: Thank you for visiting the emergency department. You were seen and evaluated for sudden onset cough and shortness of breath. The exact cause of your sym ptoms is unclear though given your history of COPD will be treated as COPD exacerbation. Please follow-up with your primary care provider. Return the emergency department for worsening symptoms or anything else that you're concerned about and feel needs emergency department evaluation. Coding Level of Care Code ED Deck Molder for Urvashi Shaw
--- NOTE | 2021-04-25 15:11 | XRR_ITS ---
PROCEDURE INFORMATION: Exam: XR Chest Exam date and time: 04/25/2021 3:11 PM Age: 66 years old Clinical indication: Dyspnea; Additional info: SOB TECHNIQUE: Imaging protocol: XR of the chest. Views: 1 view. COMPARISON: CR (CHEST, ) 04/15/2021 8:53 PM FINDINGS: Lungs: Minimal scarring and/or atelectasis at the lateral aspect of the left mid lung field. Pleural spaces: Unremarkable. No pleural effusion. No pneumothorax. Heart/Mediastinum: Unremarkable. No cardiomegaly. Bones/joints: Unremarkable. XR/XR chest 1V portable [id number] IMPRESSION: No evidence for acute cardiopulmonary disease.
[2021-04-25] MEDS: sodium chloride 0.9% 500 ML 999 ML IV (15:35)
[2021-04-25] MEDS: morphine 4 mg/mL SDV 1 mL IVP (15:35)
[2021-04-25 15:36] LABS: Basophils % 0.4 %; Eosinophils # 0.1 10^3/uL (0.0-0.8); Eosinophils % 1.7 %; Hematocrit 44.8 % (37.0-47.0); Hemoglobin 14.5 g/dL (11.5-15.3); Lymphocytes # 2.3 10^3/uL (0.8-4.8); Lymphocytes % 27.5 %; Mean Corpuscular HGB Conc 32.4 g/dL (30.0-36.0); Mean Corpuscular Hemoglobin 29.9 pg (28.0-34.0); Mean Corpuscular Volume 92.4 fl (81-99); Mean Platelet Volume 11.3 fL (7.4-10.4); Monocytes # 0.4 10^3/uL (0.2-0.9); Monocytes % 5.2 %; Neutrophils # 5.46 10^3/uL (1.8-7.7); Nucleated Red Blood Cells % 0 %; Platelet Count 227 10^3/cmm (130-400); Red Blood Count 4.85 10^6/uL (4.1-5.3); Red Cell Distribution Width 13.2 % (12.1-15.1); White Blood Count 8.4 10^3/uL (4.0-10.0)
[2021-04-25 15:58] LABS: Troponin(5th) Baseline 15 ng/L (0-10)
[2021-04-25 16:00] LABS: D Dimer 0.38 ug/mIFEU (0-0.59)
[2021-04-25 16:08] LABS: Alanine Aminotransferase 34 U/L (0-33); Albumin Level 3.7 g/dL (3.5-5.2); Alkaline Phosphatase 143 IU/L (35-105); Blood Urea Nitrogen 11 mg/dL (8-23); Calcium 8.2 mg/dL (8.5-10.5); Carbon Dioxide 22 mmol/L (22-29); Chloride 100 mmol/L (98-107); Globulin 3.1 g/dL (1.3-4.6); Glomerular Filtration Rate 84.2 mL/min (90-130); Glucose 222 mg/dL (65-115); NT Pro B Type Natriuretic Pept 635 pg/mL (0-125); Osmolality Calculated 292 mOsm/kg (285-295); Sodium 138 mmol/L (136-145); Thyroid Stimulating Hormone 0.76 uIU/mL (0.27-4.20); Total Bilirubin 0.2 mg/dL (0.15-1.2); Total Protein 6.8 g/dL (6.6-8.7)
[2021-04-25 16:10] LABS: Anion Gap 20.3 (5-19); Aspartate Amino Transferase 38 U/L (0-32); Potassium 4.3 mmol/L (3.5-5.1)
[2021-04-25] MEDS: ipratropium-albuterol 3 mL Neb INHALATION (16:32)
[2021-04-25] MEDS: metoprolol tartrate 1 mg/1 mL SDV 5 mL 5 MG IVP ×2 (16:34→17:21)
[2021-04-25 18:08] LABS: Troponin 5 2HR 13.93 ng/L (0-10)
[2021-04-25 18:14] LABS: Troponin 5 2HR Delta -1.07 ABS# (0-10)
[2021-04-25] MEDS: oxyCODONE 5 mg IR Tab/Cap PO (19:15)
--- NOTE | 2021-04-25 21:11 | ECG_ITS ---
[facility] Test Date: 2021-04-25 Pat Name: Lin Henao Department: Room: Gender: Female Professor Of Psychology: : 1955 Requested By: Joce Westfall Order Number: [id number] Snider MD: Shahana Hernandez M.D. Measurements Intervals [place] Rate: 115 P: [place]: QRS: -19 QRSD: 91 T: 34 QT: 365 QTc: 506 Interpretive Statements ATRIAL FLUTTER/TACHYCARDIA WITH RAPID VENTRICULAR RESPONSE MODERATE ST DEPRESSION [0.05+ mV ST DEPRESSION] Compared to ECG 04/15/2021 22:43:42 ST (T wave) deviation now present Atrial fibrillation no longer present T-wave abnormality no longer present Possible ischemia no longer present Electronically Signed On 04-25-2021 17:11:43 DIESEL TRUCK CRANE OPERATOR by Shahana Hernandez M.D. [id number]
== END 2021-04-25 19:28 | disposition home or self-care (01) ==
PROVIDERS: Emergency Provider Emergency Medicine; PCP Family Medicine
DX: J44.1 Chronic obstructive pulmonary disease with (acute) exacerbation (principal); Z79.82 Long term (current) use of aspirin; I25.10 Atherosclerotic heart disease of native coronary artery without angina pectoris; E11.9 Type 2 diabetes mellitus without complications; E78.5 Hyperlipidemia, unspecified; I10 Essential (primary) hypertension; F17.210 Nicotine dependence, cigarettes, uncomplicated
CPT/HCPCS: 36415; 71045; 80053; 83880; 84443; 84484; 85025; 85378; 93005; 94640; 96374; 96375; 96376; 99284; J2270; J2930; J3490; J7040

== ENCOUNTER → 2021-04-29 11:46 | Outpatient (BNVA) | payer OTHER, SELFPAY ==
[2021-04-16 10:31] VITALS: BP 134/75; BMI 41.9
== END ==
PROVIDERS: PCP Family Medicine; Visit Provider Psychiatry & Neurology Neurology
DX: Z79.899 Other long term (current) drug therapy (principal)
CPT/HCPCS: 36415; 80061; 82306; 82607; 83036; 83540

== ENCOUNTER 2021-05-12 11:54 | Outpatient (CLI) | payer MEDICARE, MEDICAID, SELFPAY ==
[2021-04-16 10:31] VITALS: BP 134/75; BMI 41.9
[2021-05-07 14:34] VITALS: BP 146/84; BMI 43.9
--- NOTE | 2021-05-12 13:00 | US_ITS ---
WS: [id number] INDICATION: Thyroid nodule TECHNIQUE: Ultrasound-guided FNA left thyroid nodules. History of right thyroidectomy. FINDINGS: The procedure including risks, benefits, and complications were discussed with the patient who agreed to proceed. Timeout was performed. Using sterile technique patient was prepped and draped in usual sterile fashion. After 1% lidocaine, using ultrasound guidance, a 25-gauge needle was advanc ed into the left upper thyroid nodule. 4 passes were made with active aspiration. 3 passes were then obtained of an additional heterogeneous left lower pole nodule not previously seen on the prior ultrasound measuring 1.1 x 1.7 cm. Pathology was present for slide preparation. No immediate complications. Patient remained in the ultr asound Suite 15 minutes postprocedure with intermittent ultrasound to ensure no hematoma. No hematoma 15 minutes postprocedure. US/US biopsy/FNA thyroid [id number] IMPRESSION: Uncomplicated ultrasound-guided thyroid FNA of 2 left-sided nodules described above
== END 2021-05-12 11:55 | disposition home or self-care (01) ==
LOC: RAD 11:55
PROVIDERS: PCP Family Medicine; Visit Provider Internal Medicine
DX: E04.1 Nontoxic single thyroid nodule (principal); Z85.850 Personal history of malignant neoplasm of thyroid
CPT/HCPCS: 10005; 10006; 88173; 88305

== ENCOUNTER 2021-05-23 20:51 | Observation (INO) | payer MEDICARE, MEDICAID, SELFPAY ==
[2021-05-07 14:34] VITALS: BP 146/84; BMI 43.9
[2021-05-23 21:33] VITALS: BP 155/92; PULSE 115; RESP 18; TEMP 36.8; O2SAT 96; BMI 42.9
--- NOTE | 2021-05-23 21:41 | ECG_ITS ---
[facility] Test Date: 2021-05-23 Pat Name: Lin Henao Department: Room: Gender: Female Scheduling Administrator: : 1955 Requested By: Adrian Muñoz Order Number: [id number] Tylor MD: Herber Benoit M.D. Measurements Intervals [place] Rate: 113 P: [place]: QRS: -20 QRSD: 92 T: 22 QT: 354 QTc: 487 Interpretive Statements ATRIAL FLUTTER/TACHYCARDIA WITH RAPID VENTRICULAR RESPONSE MODERATE ST DEPRESSION [0.05+ mV ST DEPRESSION] Compared to ECG 04/25/2021 15:07:15 No significant changes Electronically Signed On 05-24-2021 20:03:50 CHEESE FACTORY WORKER by Herber Benoit M.D. [email or web address] [email or web address] Semiconductorregency hospital [email or web address]/[id number]
--- NOTE | 2021-05-23 21:41 | XRR_ITS ---
PROCEDURE INFORMATION: Exam: XR Chest Exam date and time: 05/23/2021 9:41 PM Age: 66 years old Clinical indication: Pain; Chest pressure; Additional info: Chest pain TECHNIQUE: Imaging protocol: XR of the chest. Views: 1 view. COMPARISON: CR (CHEST, ) 04/25/2021 3:17 PM FINDINGS: Lungs: Unremarkable. No consolidation. Pleural spaces: Unremarkable. No pleural effusion. No pneumothorax. Heart/Mediastinum: Unremarkable. No cardiomegaly. Bones/joints: Unremarkable. XR/XR chest 1V portable [id number] IMPRESSION: No acute findings.
[2021-05-23 21:45] VITALS: BP 155/92; PULSE 115; RESP 14; O2SAT 96
[2021-05-23 21:50] LABS: Basophils # 0.1 10^3/uL (0.0-0.1); Basophils % 0.4 %; Eosinophils # 0.2 10^3/uL (0.0-0.8); Eosinophils % 1.3 %; Hematocrit 47.9 % (37.0-47.0); Hemoglobin 15.5 g/dL (11.5-15.3); Lymphocytes # 2.6 10^3/uL (0.8-4.8); Lymphocytes % 22.2 %; Mean Corpuscular HGB Conc 32.4 g/dL (30.0-36.0); Mean Corpuscular Hemoglobin 29.5 pg (28.0-34.0); Mean Corpuscular Volume 91.1 fl (81-99); Mean Platelet Volume 11.6 fL (7.4-10.4); Monocytes # 0.6 10^3/uL (0.2-0.9); Monocytes % 5.4 %; Neutrophils # 8.31 10^3/uL (1.8-7.7); Neutrophils % 70.3 %; Nucleated Red Blood Cells % 0 %; Platelet Count 249 10^3/cmm (130-400); Red Blood Count 5.26 10^6/uL (4.1-5.3); Red Cell Distribution Width 13.6 % (12.1-15.1); White Blood Count 11.8 10^3/uL (4.0-10.0)
[2021-05-23 21:59] LABS: INR 1.07 (0.8-1.2); Partial Thromboplastin Time 30.3 SECONDS (23.9-36.7)
[2021-05-23 22:04] LABS: Troponin(5th) Baseline 12 ng/L (0-10)
[2021-05-23] MEDS: aspirin 81 mg Chew Tablet 324 MG PO (22:07)
[2021-05-23 22:13] LABS: Alanine Aminotransferase 38 U/L (0-33); Alkaline Phosphatase 143 IU/L (35-105); Blood Urea Nitrogen 8 mg/dL (8-23); Calcium 9.6 mg/dL (8.5-10.5); Carbon Dioxide 21 mmol/L (22-29); Chloride 95 mmol/L (98-107); Creatinine Clr Calc Pharmacy 140.2882; Globulin 3.6 g/dL (1.3-4.6); Glomerular Filtration Rate 124.2 mL/min (90-130); Glucose 147 mg/dL (65-115); Lipase 25 U/L (13-60); NT Pro B Type Natriuretic Pept 543 pg/mL (0-125); Osmolality Calculated 279 mOsm/kg (285-295); Sodium 134 mmol/L (136-145); Total Bilirubin 0.2 mg/dL (0.15-1.2); Total Protein 7.6 g/dL (6.6-8.7)
[2021-05-23 22:15] LABS: Anion Gap 22.3 (5-19); Aspartate Amino Transferase 46 U/L (0-32); Potassium 4.3 mmol/L (3.5-5.1)
--- NOTE | 2021-05-23 22:28 | ED_ITS ---
HPI - Chest Pain General: Chief Complaint: Chest Pain Stated Complaint: CHEST PAIN Time Seen by Provider: 05/23/21 21:10 Source: patient and EMS History of Present Illness: HPI narrative: This is a 66-year-old female presents emergency department chief complaint of intermittent episodes of chest pain and palpitations prior to arrival patient reports she has a known history of atrial fibrillation and atrial flutter as well as SVT. She reports she has not been using any recent medications reports no recent infections or illnesses. She reports that her irrigation specialist is Dr. Ramos. Patient reports having a previous history of cardiac catheterization has come back clean with no stents indicated. Patient reports she is on medications for rate control including metoprolol that she has been taking which she has not missed any recent dosages. Patient does not report any other associated issues. MD complaint: chest pain Onset (ago): week(s) Timing of current episode: episodic Onset: during rest, during exertion and after eating Pain location: substernal Pain radiation: none Severity: moderate Quality: heaviness Associated symptoms: Reports palpitations; Deny abdominal pain, dyspnea, fever(s), nausea or vomiting Risk Factors: Coronary artery disease risk factors: diabetes, smoking history, hyperlipidemia and hypertension Thoracic aortic dissection risk factors: none Review of Systems General: Reports: 10 or more systems reviewed and unremarkable except in HPI and below Const: Denies: fever(s), chills, fatigue or malaise Eyes: Denies: change in vision or blurry vision Card: Reports: chest pain and palpitations Resp: Denies: dyspnea or productive cough GI: Denies: abdominal pain, nausea or vomiting : Denies: flank pain Musc: Denies: extremity pain or extremity swelling Skin/Breast: Denies: rash or pruritus Neuro: Denies: headache(s) Psych: Denies: anxiety or depression Jagjit/Lymph: Denies: easy bleeding All/Imm: Denies: urticaria, throat swelling or facial swelling PFSH ED PFSH: Medical History Atypical chest pain Bipolar depression CAD (coronary artery disease) Chest pain Chronic headache Chronic pain syndrome Due to her weight and other comorbidities I do not think that there is much that pain management would be able to do. They can do localized injections or treatments on specific joints but she would never be a surgical candidate. Constipation, chronic COPD (chronic obstructive pulmonary disease) Diabetes mellitus type 2 in obese Fibromyalgia Generalized anxiety disorder GERD (gastroesophageal reflux disease) Hyperlipemia Hypertension, benign Insomnia Major depressive disorder, recurrent, moderate Mixed stress and urge urinary incontinence Nicotine dependence, cigarettes, with other nicotine-induced disorders NONA (obstructive sleep apnea) Uses CPAP Overactive bladder Panic disorder [episodic paroxysmal anxiety] Paroxysmal A-fib Paroxysmal atrial fibrillation (~08/2020) Peripheral Vascular Disease RLS (restless legs syndrome) Surgical History H/O thyroidectomy H/O: hysterectomy Hx of cholecystectomy S/P appendectomy Family History Mother , at age 75 Hypertension Father , at age 87 Hypertension Denies family history of Lung disease Stroke Social History Second hand smoke exposure: No Alcohol intake: never Adopted: No Caregiver/support person: No Lives independently: Yes Household members: none Housing: Apartment Marital status: / Number of children: 8 Number of grandchildren: 14 Highest education level completed: Some College, No Degree service: No Current occupational status: disabled Pets and animals: Yes Pets & animals: dog(s) History of recent travel: No Leisure activites: art, music, reading and other Sexually active: No Current gender identity: Female Lilliam/Uatsdin: Yazidi Special lilliam needs: No Agree to transfusion: Yes Financial difficulty paying for basics: Not Very Hard Female Reproductive History: Para: 8 Spontaneous abortions: No Physical Exam Narrative: EXAM NARRATIVE: Patient appears very anxious on exam current heart rate is 180-200 with the appearence of svt Const: COMMON NORMALS: no acute distress, patient oriented x3 and healthy appearing HENMT: COMMON NORMALS: normocephalic and atraumatic HEAD & SCALP: normocephalic and atraumatic Eye: COMMON NORMALS: Equal, round and reactive pupils present and EOMs intact bilaterally PUPIL: Yes Equal, round and reactive pupils present Neck/C-Spine: COMMON NORMALS: full ROM, supple and no JVD Lymph: LYMPHATIC: no lymphadenopathy noted Chest: COMMONS NORMALS: normal inspection of the chest Resp: EFFORT & INSPECTION: Yes able to speak in complete sentences and Yes symmetric chest movement Cardio: COMMON NORMALS: no JVD and regular rate RATE: regular rate and tachycardic (Appears to be in SVT rate of 180 that resolved to a sinus tachycardia rate ) RHYTHM: abnormal rhythm GI: COMMON NORMALS: Normal to inspection, nondistended, normoactive bowel sounds present, Soft to palpation and non-tender INSPECTION: Yes normal to inspection PALPATION: Yes Soft to palpation : COMMON NORMALS: Yes no CVA tenderness BLADDER/KIDNEY EXAM: Yes no CVA tenderness Back/Pelvis: COMMON NORMALS: no CVA tenderness Extremity: COMMON NORMALS: normal to inspection and full ROM Neuro: COMMON NORMALS: patient oriented x3, CN's II-XII intact bilaterally, moves all extremities and no focal motor deficits Psych: COMMON NORMALS: mental status grossly normal, Normal thought process present, cooperative and normal affect THOUGHT PROCESS: Normal thought process present Skin: COMMON NORMALS: no rashes or lesions noted GENERAL SKIN EXAM: no rashes or lesions noted Course ED course: Due to the patient's symptoms and condition lab work and imaging will be obtained we will continue to follow patient has been intermittently in and out of both SVT/atrial flutter several times throughout her time here currently labs to return anticipate need for admission will need to see if we need to place the patient on insulin drip for the patient's rate control patient seems to be going in and out of atrial flutter. Spoke with Dr. Tolentino on for the hospitalist there is a great acceptance patient arash in stable condition at this time possible need for consultation with cardiology if needed. First cardiac troponins come back unremarkable slight elevation of reviewed bnp os suggestive of early heart failure potential. Vital Signs: Vital signs: Vital Signs Temperature 98.2 F 05/23/21 21:33 Pulse Rate 113 H 05/23/21 22:49 Respiratory Rate 16 05/23/21 22:49 Blood Pressure 137/105 05/23/21 22:49 Pulse Oximetry 94 05/23/21 22:49 MDM - Chest Pain Lab Data: Labs: Lab Results 05/23/21 05/23/21 05/23/21 21:30 21:30 21:30 WBC 11.8 10^3/uL H 10 ^3/uL (4.0-10.0) RBC 5.26 10^6/uL 10^6 /uL (4.1-5.3) Hgb 15.5 g/dL H g/dL (11.5-15.3) Hct 47.9 % H % (37.0-47.0) MCV 91.1 fl fl (81-99) MCH 29.5 pg pg (28.0-34.0) MCHC 32.4 g/dL g/dL (30.0-36.0) RDW 13.6 % % (12.1-15.1) Plt Count 249 10^3/cmm 10^3 /cmm (130-400) MPV 11.6 fL H fL (7.4-10.4) Neut % (Auto) 70.3 % % Lymph % (Auto) 22.2 % % [place] % (Auto) 5.4 % % Eos % (Auto) 1.3 % % Baso % (Auto) 0.4 % % Neut # (Auto) 8.31 10^3/uL H 10 ^3/uL (1.8-7.7) Lymph # (Auto) 2.6 10^3/uL 10^3/ uL (0.8-4.8) [place] # (Auto) 0.6 10^3/uL 10^3/ uL (0.2-0.9) Eos # (Auto) 0.2 10^3/uL 10^3/ uL (0.0-0.8) Baso # (Auto) 0.1 10^3/uL 10^3/ uL (0.0-0.1) Nucleated RBC % (a uto) 0 % % Nucleated RBCs # 0.0 /100WBC /100W BC PT 14.20 SECONDS SEC ONDS (12.1-14.9) INR 1.07 (0.8-1.2) APTT 30.3 SECONDS SECO NDS (23.9-36.7) Sodium 134 mmol/L L mmol /L (136-145) Potassium 4.3 mmol/L mmol/L (3.5-5.1) Chloride 95 mmol/L L mmol/ L (98-107) Carbon Dioxide 21 mmol/L L mmol/ L (22-29) Anion Gap 22.3 H (5-19) BUN 8 mg/dL mg/dL (8-23) Creatinine 0.5 mg/dL mg/dL (0.5-0.9) GFR Calculation 124.2 mL/min mL/m in (90-130) Glucose 147 mg/dL H mg/dL (65-115) Calculated Osmolal ity 279 mOsm/kg L mOs m/kg (285-295) Calcium 9.6 mg/dL mg/dL (8.5-10.5) Total Bilirubin 0.2 mg/dL mg/dL (0.15-1.2) AST 46 U/L H U/L (0-32) ALT 38 U/L H U/L (0-33) Alkaline Phosphata se 143 IU/L H IU/L (35-105) Troponin T Baselin e NT-Pro-B Natriuret Pep 543 pg/mL H pg/mL (0-125) Total Protein 7.6 g/dL g/dL (6.6-8.7) Albumin 4.0 g/dL g/dL (3.5-5.2) Globulin 3.6 g/dL g/dL (1.3-4.6) Lipase 25 U/L U/L (13-60) Urine Color Urine Appearance Urine pH Ur Specific Gravit y Urine Protein Urine Glucose (UA) Urine Ketones Urine Blood Urine Nitrate Urine Bilirubin Urine Urobilinogen Ur Leukocyte Yvonne ase Urine RBC Urine WBC Ur Squamous Epith Cells Amorphous Sediment Urine Bacteria 05/23/21 05/23/21 21:30 22:09 WBC RBC Hgb Hct MCV MCH MCHC RDW Plt Count MPV Neut % (Auto) Lymph % (Auto) [place] % (Auto) Eos % (Auto) Baso % (Auto) Neut # (Auto) Lymph # (Auto) [place] # (Auto) Eos # (Auto) Baso # (Auto) Nucleated RBC % (a uto) Nucleated RBCs # PT INR APTT Sodium Potassium Chloride Carbon Dioxide Anion Gap BUN Creatinine GFR Calculation Glucose Calculated Osmolal ity Calcium Total Bilirubin AST ALT Alkaline Phosphata se Troponin T Baselin e 12 ng/L H ng/L (0-10) NT-Pro-B Natriuret Pep Total Protein Albumin Globulin Lipase Urine Color Yellow (Yellow) Urine Appearance Sl hazy (CLEAR) Urine pH 6.5 (5-7) Ur Specific Gravit y 1.010 (1.005-1.030) Urine Protein Neg (Negative) Urine Glucose (UA) Trace H (Normal) Urine Ketones Negative (Negative) Urine Blood Neg (Negative) Urine Nitrate Negative (Negative) Urine Bilirubin Neg (Negative) Urine Urobilinogen Norm mg/dL mg/dL (Negative) Ur Leukocyte Yvonne ase Negative (Negative) Urine RBC 0-4 /hpf H /hpf (0-2) Urine WBC 0-4 /hpf H /hpf (0-5) Ur Squamous Epith Cells 10-15 /hpf H /hpf (0-5) Amorphous Sediment Not Reportable Urine Bacteria 4+ /hpf H /hpf (NONE) Discharge Plan Discharge Patient Disposition: Admitted As Inpatient Clinical Impression: Sustained SVT Condition: Stable Coding Level of Care Code ED Inspector Poising for Chg Fwd Exam Comprehensive
[2021-05-23] MEDS: sodium chloride 0.9% 500 ML 999 ML IV (22:33)
[2021-05-23] MEDS: ondansetron 2 mg/ML SDV 2 mL 4 MG IVP (22:33)
--- NOTE | 2021-05-23 22:42 | ECG_ITS ---
[facility] Test Date: 2021-05-23 Pat Name: Lin Henao Department: Room: Gender: Female Loading Supervisor: : 1955 Requested By: Adrian Muñoz Order Number: [id number] Tylor MD: Herber Benoit M.D. Measurements Intervals [place] Rate: 112 P: [place]: QRS: -22 QRSD: 93 T: 66 QT: 350 QTc: 479 Interpretive Statements ATRIAL FLUTTER/TACHYCARDIA WITH RAPID VENTRICULAR RESPONSE BORDERLINE LEFT AXIS DEVIATION [QRS AXIS < -20] ST DEPRESSION, CONSIDER SUBENDOCARDIAL INJURY [0.1+ mV ST DEPRESSION] Compared to ECG 04/25/2021 15:07:15 No significant changes Electronically Signed On 05-24-2021 20:03:44 MARKETING ANALYTICS MANAGER by Herber Benoit M.D. [id number]
[2021-05-23 22:49] VITALS: BP 137/105; PULSE 113; RESP 16; O2SAT 94
[2021-05-23 22:50] LABS: Add Urine Microscopic? YES; Bilirubin Urine Neg (Negative); Blood Urine Neg (Negative); Glucose Urine UA Trace (Normal); Ketones Urine Negative (Negative); Leukocyte Esterase Urine Negative (Negative); Nitrate Urine Negative (Negative); Protein Urine Neg (Negative); Urine Appearance SL Hazy (CLEAR); Urine Color Yellow (Yellow); Urobilinogen Urine Norm (Negative); pH Urine 6.5 (5-7)
[2021-05-23 22:51] LABS: Add Urine Culture? No; Bacteria Urine 4+ /hpf; WBC Urine 0-4 /hpf (0-5)
[2021-05-23 22:52] LABS: RBC Urine 0-4 /hpf (0-2)
--- NOTE | 2021-05-23 23:41 | ECG_ITS ---
[facility] Test Date: 2021-05-24 Pat Name: Lin Henao Department: Room: Gender: Female Inside Sales Account Executive: : 1955 Requested By: Adrian Muñoz Order Number: [id number] Tylor MD: Herber Beonit M.D. Measurements Intervals [place] Rate: 112 P: [place]: QRS: -23 QRSD: 101 T: 5 QT: 379 QTc: 520 Interpretive Statements ATRIAL FLUTTER/TACHYCARDIA WITH RAPID VENTRICULAR RESPONSE BORDERLINE LEFT AXIS DEVIATION [QRS AXIS < -20] MODERATE ST DEPRESSION [0.05+ mV ST DEPRESSION] Compared to ECG 05/23/2021 22:46:27 No significant changes Electronically Signed On 05-24-2021 20:13:39 DATABASE DEVELOPER by Herber Benoit M.D. [id number]
--- NOTE | 2021-05-23 23:47 | P.HP_ITS ---
Providers/Chief Complaint Primary Care Provider: Kristine Rodriguez MD Chief Complaint: CHEST PAIN History of Present Illness Lin Henao is a 66 year old female with past medical history of diabetes, COPD, paroxysmal A. fib / flutter , hypertension , obstructive sleep apnea came in with chief complaint of episodic chest discomfort and palpitation going on for the last 24 to 48 hours. She denies any, cough, fever, nausea , vomiting , dizziness. When she arrived in the ER she had 2 episodes of SVT which is spontaneously resolved, she was also found to be in atrial flutter with rate in the 110 to 115. she was worked up for above-mentioned complaints. EKG: Atrial flutter with a rate of 113 X-ray chest: No acute findings Pertinent labs: WBC 11.8, H&H 15.5/ 47.9 PLT : 249 , serum sodium 134 serum potassium 4.3, BUN serum creatinine 8/0.5 AST 46, ALT 38, ALP 143, baseline troponin 12 , proBNP 543, Patient has cardiac cath: Done last year which has shown nonocclusive coronary artery disease. 2D echo: Normal LV cavity and LV systolic function with EF of 60%, normal RV size and systolic function. Patient was given Cardizem 5 mg IV one-time dose in the ER, she was started on her home dose of metoprolol. Review of Systems Const: Denies: fever(s), chills, body aches, change in appetite or diaphoresis Card: Denies: edema, swelling of feet/ankles, orthopnea or leg pain with exertion Resp: Denies: productive cough, wheezing or pain on inspiration GI: Denies: abdominal pain, nausea, vomiting, diarrhea or constipation : Denies: flank pain Musc: Denies: back pain, extremity pain or extremity swelling Neuro: Denies: headache(s), difficulty walking or confusion Medications/Allergies Home Medications Medication Instructions Recorded Confirmed Last Taken Type albuterol sulfate 90 mcg/actuation 2 puff INHALATION Q6H PRN #8.5 g 08/25/20 05/21/21 Unknown Rx aerosol inhaler aspirin [Adult Aspirin Regimen] 81 mg PO DAILY@0800 09/08/20 05/21/21 10/14/20 History gemfibrozil 600 mg PO DAILY@199909/08/20 05/21/21 10/13/20 History loratadine 10 mg PO BEDTIME@1999 PRN 09/08/20 05/21/21 10/13/20 History One A Day 1 tab PO DAILY@199910/09/20 05/21/21 10/13/20 History Vitamin C 1 tab PO DAILY@199910/09/20 05/21/21 10/13/20 History albuterol sulfate 2 inh INHALATION Q4H PRN #18 gm 10/14/20 05/21/21 Unknown Rx melatonin 5 mg capsule 10 mg PO .at bedtime PRN cap 10/27/20 05/21/21 Unknown History miscellaneous medical supply See Rx Instructions MISCELLANEOUS 12/17/20 05/21/21 Unknown Rx .COMPLEX #1 ea metoprolol tartrate 100 mg tablet 100 mg PO Q12H 30 Days #60 tab 02/09/21 05/21/21 Unknown Rx famotidine 20 mg tablet See Rx Instructions .ROUTE 02/17/21 05/21/21 Unknown Rx .COMPLEX #180 tablet furosemide 40 mg tablet See Rx Instructions .ROUTE 02/17/21 05/21/21 Unknown Rx .COMPLEX #180 tablet diclofenac sodium 50 mg 50 mg PO BID PRN 30 Days #60 tab 02/26/21 05/21/21 Unknown Rx tablet,delayed release bupropion HCl 300 mg 24 hr tablet, See Rx Instructions .ROUTE 03/11/21 05/21/21 Unknown Rx extended release .COMPLEX #30 tablet buspirone 10 mg tablet See Rx Instructions .ROUTE 03/11/21 05/21/21 Unknown Rx .COMPLEX #90 tablet duloxetine 60 mg capsule,delayed See Rx Instructions .ROUTE 03/11/21 05/21/21 Unknown Rx release .COMPLEX #30 capsule cyclobenzaprine 5 mg tablet See Rx Instructions .ROUTE 03/17/21 05/21/21 Unknown Rx .COMPLEX #120 tablet docusate sodium 100 mg capsule 200 mg PO BID 30 Days #120 cap 03/17/21 05/21/21 Unknown Rx potassium chloride 20 mEq See Rx Instructions .ROUTE 03/17/21 05/21/21 Unknown R x tablet,extended release(part/cryst) .COMPLEX #180 tablet miscellaneous medical supply 1 ea MISCELLANEOUS ONCE #1 ea 03/23/21 05/21/21 Unknown Rx apixaban 5 mg tablet 5 mg PO BID 30 Days #60 tab 04/02/21 05/21/21 Unknown Rx blood sugar diagnostic #50 ea 04/02/21 05/21/21 Unknown Rx isosorbide mononitrate 30 mg See Rx Instructions .ROUTE 04/02/21 05/21/21 Unknown Rx tablet,extended release 24 hr .COMPLEX #30 tab oxybutynin chloride 15 mg 15 mg PO DAILY 90 Days #90 tab 04/02/21 05/21/21 Unknown Rx tablet,extended release 24 hr miscellaneous medical supply #1 ea 04/06/21 05/21/21 Unknown Rx diaper,brief,adult,disposable #360 ea 04/07/21 05/21/21 Unknown Rx pramipexole 0.25 mg tablet See Rx Instructions .ROUTE 04/13/21 05/21/21 Unknown Rx .COMPLEX #30 tab suvorexant 10 mg tablet 10 mg PO .at bedtime #30 tab 04/14/21 05/21/21 Unknown Rx clopidogrel 75 mg tablet 75 mg PO DAILY 05/08/21 05/21/21 Unknown History nitroglycerin 0.4 mg sublingual 0.4 mg SUBLINGUAL Q5M PRN #30 tab 05/08/21 05/21/21 Unknown Rx tablet cholecalciferol (vitamin D3) 1,250 50,000 unit PO .Weekly 60 Days #10 05/15/21 05/21/21 Unknown Rx mcg (50,000 unit) capsule cap empagliflozin 25 mg tablet 25 mg PO DAILY #90 tab 05/18/21 05/21/21 Unknown Rx empagliflozin 25 mg tablet 25 mg PO DAILY 05/21/21 05/21/21 Unknown History Allergies Allergy/AdvReac Type Severity Reaction Status Date / Time propoxyphene [From Darvon] Allergy Unknown Unknown Verified 05/21/21 10:18 fluoxetine [From Prozac] AdvReac Severe ADR-Halluci Verified 05/21/21 10:18 nating [facility] Acute PFSH: Medical History Atypical chest pain Bipolar depression CAD (coronary artery disease) Chest pain Chronic headache Chronic pain syndrome Due to her weight and other comorbidities I do not think that there is much that pain management would be able to do. They can do localized injections or treatments on specific joints but she would never be a surgical candidate. Constipation, chronic COPD (chronic obstructive pulmonary disease) Diabetes mellitus type 2 in obese Fibromyalgia Generalized anxiety disorder GERD (gastroesophageal reflux disease) Hyperlipemia Hypertension, benign Insomnia Major depressive disorder, recurrent, moderate Mixed stress and urge urinary incontinence Nicotine dependence, cigarettes, with other nicotine-induced disorders NONA (obstructive sleep apnea) Uses CPAP Overactive bladder Panic disorder [episodic paroxysmal anxiety] Paroxysmal A-fib Paroxysmal atrial fibrillation (~08/2020) Peripheral Vascular Disease RLS (restless legs syndrome) Surgical History H/O thyroidectomy H/O: hysterectomy Hx of cholecystectomy S/P appendectomy Family History Mother , at age 75 Hypertension Father , at age 87 Hypertension Denies family history of Lung disease Stroke Social History Second hand smoke exposure: No Alcohol intake: never Adopted: No Caregiver/support person: No Lives independently: Yes Household members: none Housing: Apartment Marital status: / Number of children: 8 Number of grandchildren: 14 Highest education level completed: Some College, No Degree service: No Current occupational status: disabled Pets and animals: Yes Pets & animals: dog(s) History of recent travel: No Leisure activites: art, music, reading and other Sexually active: No Current gender identity: Female Lilliam/Restorationist: Cheondoism Special lilliam needs: No Agree to transfusion: Yes Financial difficulty paying for basics: Not Very Hard Female Reproductive History: Para: 8 Spontaneous abortions: No Vitals/I&O/Wt Last Vital Signs Temp 98.2 F 05/23/21 21:33 Pulse 113 H 05/23/21 22:49 Resp 16 05/23/21 22:49 BP 137/105 05/23/21 22:49 Pulse Ox 94 05/23/21 22:49 Weight last 48 hrs Weight 113.398 kg Physical Exam Const: COMMON NORMALS: patient oriented x3 HENMT: COMMON NORMALS: normocephalic and atraumatic HEAD & SCALP: normocephalic and atraumatic Resp: COMMON NORMALS: clear to auscultation bilaterally AUSCULTATION: clear to auscultation bilaterally Cardio: COMMON NORMALS: regular rate, regular rhythm, S1 normal heart sound present, S2 normal heart sound present, No gallops present (Cardio), No murmurs present (Cardio), No rub (Cardio) and Peripheral pulses 2+ throughout RATE: regular rate RHYTHM: regular rhythm HEART SOUNDS: S1 normal heart sound present and S2 normal heart sound present PERIPHERAL PULSES: Peripheral pulses 2+ throughout GI: COMMON NORMALS: Normal to inspection, nondistended, normoactive bowel sounds present, Soft to palpation, non-tender, No hepatosplenomegaly present and no masses AUSCULTATION: Yes normoactive bowel sounds PALPATION: Yes Soft to palpation and Yes No hepatosplenomegaly present RECTAL EXAM: deferred Extremity: COMMON NORMALS: no clubbing, cyanosis or edema and no pedal edema Neuro: COMMON NORMALS: patient oriented x3 Data : 05/24/21 04:13 05/24/21 04:13 A&P Assessment and plan (1) Paroxysmal atrial fibrillation: Status: Acute (2) SVT (supraventricular tachycardia): Status: Acute (3) DM type 2 (diabetes mellitus, type 2): Status: Acute (4) Hypertension, benign: Status: Acute (5) COPD (chronic obstructive pulmonary disease): Status: Chronic Additional A&P Information Lin Henao is a 66 year old female with past medical history of diabetes, COPD, paroxysmal A. fib / flutter , hypertension obstructive sleep apnea came in with chief complaint of episodic chest discomfort and palpitation going on for the last 24 to 48 hours. She denies any, cough, fever, nausea , vomiting , dizziness. When she arrived in the ER she had 2 episodes of SVT which is spontaneously resolved, she was also found to be in atrial flutter with rate in the 110 to 115. #History of paroxysmal A. fib/flutter: Continue metoprolol tartrate 100 mg p.o. twice daily. We will likely plan to initiate antiarrhythmic possibly flecainide given paroxy smal A. fib / flutter now also having episodes of SVTs. Continue Eliquis #Symptomatic SVT: Patient has been taught vagal maneuvers If she continues to have similar episodes we will initiate antiarrhythmic preferably flecainide. #Diabetes: SSI , FSG , carbohydrate consistent #CODE STATUS: Full code #DVT prophylaxis: Not needed on Eliquis Attestations Medical Necessity Statement*: Patient needs to be in hospital for management of a symptomatic flutter with RVR, SVT. Anticipated length of stay greater than 2 midnights. Time Spent in Patient Care: Greater than 35 minutes (>than 50% of time spent in counselling and/or direct pt care on unit) . Coding Level of Care Code Acute Offender Employment Specialist for g Fwd Exam Detailed Diagnoses Paroxysmal atrial fibrillation I48.0 SVT (supraventricular tachycardia) I47.1 DM type 2 (diabetes mellitus, type 2) E11.9 Hypertension, benign I10 COPD (chronic obstructive pulmonary disease) J44.9
[2021-05-23 23:59] LABS: Troponin 5 2HR 12.46 ng/L (0-10); Troponin 5 2HR Delta 0.46 ABS# (0-10)
[2021-05-24] VITALS (21 sets, daily range): BP systolic 105–180; BP diastolic 58–101; PULSE 82–113; RESP 16–42; TEMP 36.1–36.8; O2SAT 91–95
[2021-05-24] MEDS: metoprolol tartrate 50 mg Tablet 100 MG PO (00:32)
[2021-05-24] MEDS: acetaminophen 325 mg Tablet 650 MG PO (02:55)
--- NOTE | 2021-05-24 03:41 | ECG_ITS ---
[facility] Test Date: 2021-05-24 Pat Name: Lin Henao Department: Room: Gender: Female General Engineer: : 1955 Requested By: Adrian Muñoz Order Number: [id number] Tylor MD: Herber Benoit M.D. Measurements Intervals [place] Rate: 92 P: [place]: QRS: -22 QRSD: 101 T: 7 QT: 372 QTc: 462 Interpretive Statements ATRIAL FLUTTER/TACHYCARDIA BORDERLINE LEFT AXIS DEVIATION [QRS AXIS < -20] ABNORMAL RHYTHM ECG Compared to ECG 05/24/2021 00:10:51 ST (T wave) deviation no longer present Electronically Signed On 05-24-2021 20:13:55 FIRE EXTINGUISHER MECHANIC by Herber Benoit M.D. [id number]
[2021-05-24] MEDS: morphine 4 mg/mL SDV 1 mL IVP ×3 (04:37→21:59)
[2021-05-24 04:40] LABS: Basophils % 0.3 %; Eosinophils # 0.2 10^3/uL (0.0-0.8); Hematocrit 41.4 % (37.0-47.0); Hemoglobin 13.1 g/dL (11.5-15.3); Lymphocytes % 32.4 %; Mean Corpuscular HGB Conc 31.6 g/dL (30.0-36.0); Mean Corpuscular Hemoglobin 29.2 pg (28.0-34.0); Mean Corpuscular Volume 92.4 fl (81-99); Mean Platelet Volume 11.9 fL (7.4-10.4); Monocytes # 0.6 10^3/uL (0.2-0.9); Monocytes % 6.3 %; Neutrophils # 5.39 10^3/uL (1.8-7.7); Neutrophils % 58.8 %; Nucleated Red Blood Cells % 0 %; Platelet Count 205 10^3/cmm (130-400); Red Blood Count 4.48 10^6/uL (4.1-5.3); Red Cell Distribution Width 13.5 % (12.1-15.1); White Blood Count 9.2 10^3/uL (4.0-10.0)
[2021-05-24 05:08] LABS: Alanine Aminotransferase 29 U/L (0-33); Albumin Level 3.4 g/dL (3.5-5.2); Alkaline Phosphatase 117 IU/L (35-105); Anion Gap 14.9 (5-19); Aspartate Amino Transferase 35 U/L (0-32); Blood Urea Nitrogen 10 mg/dL (8-23); Calcium 9.1 mg/dL (8.5-10.5); Carbon Dioxide 26 mmol/L (22-29); Chloride 100 mmol/L (98-107); Creatinine Clr Calc Pharmacy 140.2882; Globulin 2.7 g/dL (1.3-4.6); Glomerular Filtration Rate 124.2 mL/min (90-130); Glucose 158 mg/dL (65-115); Magnesium 1.9 mg/dL (1.7-2.3); Osmolality Calculated 286 mOsm/kg (285-295); Potassium 3.9 mmol/L (3.5-5.1); Sodium 137 mmol/L (136-145); Thyroid Stimulating Hormone 0.88 uIU/mL (0.27-4.20); Total Bilirubin 0.3 mg/dL (0.15-1.2); Total Protein 6.1 g/dL (6.6-8.7)
--- NOTE | 2021-05-24 07:24 | PC.NURSE ---
while at bedside pt is sitting in bed in nad. pt denies any further needs at this time.
[2021-05-24] MEDS: FUROsemide 40 mg Tablet PO (08:53)
[2021-05-24] MEDS: apixaban 5 mg Tablet PO ×2 (08:53→18:29)
[2021-05-24] MEDS: aspirin 81 mg EC Tablet PO (08:53)
[2021-05-24] MEDS: insulin lispro 100 unit/1 mL SUBCUT ×3 (08:59→21:58)
[2021-05-24 09:02] LABS: Glucose Point of Care 202 mg/dL (70-110)
--- NOTE | 2021-05-24 09:03 | PC.NURSE ---
pt is on continuous spo2, nibp, and cm.
--- NOTE | 2021-05-24 09:17 | P.PN_ITS ---
Subjective Subjective: Interval history: Patient was admitted last night secondary to 3 episodes of SVT with her A. fib. She has had issues with this in the past. Currently taking metoprolol 100 mg twice a day and Eliquis for this. She is not having chest pain. She is a bit nervous about going home today. Vitals/I&O/Wt Last Vital Signs Temp 98.2 F 05/23/21 21:33 Pulse 98 05/24/21 09:03 Resp 20 H 05/24/21 09:03 BP 110/78 05/24/21 09:03 Pulse Ox 92 05/24/21 09:03 05/23/21 05/24/21 05/24/21 22:59 06:59 14:59 Intake Total 500 / 500 Balance 500 / 500 Weight last 48 hrs Weight 250 lb Physical Exam Narrative: EXAM NARRATIVE: General: No acute distress, Alert. Well nourished. Heart: Regular rate and rhythm. No murmurs, rubs or gallops. Normal capillary refill. Lungs: Clear to auscultation. No wheezes, rhonchi or rales. Abdomen: Positive bowel sounds. Non-tender, non-distended. No hepatosplenomegaly. No gaurding. Extremities: No clubbing, cyanosis, or edema. Negative Tila's Data : 05/24/21 04:13 05/24/21 04:13 A&P Assessment and plan (1) SVT (supraventricular tachycardia): - This is a primary this is the primary concern for admission. She is stable currently. We will go ahead and increase her metoprolol to 150 mg twice a day and see how she does over the next 24 hours. If no more episodes we will proceed with discharge home tomorrow. However follow-up with cardiology as an outpatient. Status: Acute (2) Paroxysmal atrial fibrillation: Status: Acute (3) Generalized anxiety disorder: Status: Chronic Attestations Medical Necessity Statement*: Patient is 66-year-old female with SVT requiring continued inpatient monitoring and treatment. Coding Level of Care Code Acute [employer] Bug[employer] Operator for Urv[employer] Shaw Diagnoses SVT (supraventricular tachycardia) I47.1 Paroxysmal atrial fibrillation I48.0 Generalized anxiety disorder F41.1
--- NOTE | 2021-05-24 10:03 | PC.NURSE ---
PC TO PHARMACY FOR NEED OF PT MEDS THAT HAVE NOT BEEN MADE AVAILABLE SPOKE WITH ALBERTO THAT SAID MEDICATIONS WOULD BE MADE AVAILABLE.
[2021-05-24] MEDS: BuSPIRONE 10 mg Tablet 15 MG PO ×2 (10:36→18:30)
[2021-05-24] MEDS: buPROPion XL (24 HR) 300 mg Tablet PO (10:36)
[2021-05-24] MEDS: metoprolol tartrate 50 mg Tablet 150 MG PO ×2 (10:40→21:41)
[2021-05-24 12:16] LABS: Glucose Point of Care 190 mg/dL (70-110)
--- NOTE | 2021-05-24 14:45 | PC.NURSE ---
ATTEMPTED REPORT NURSE UNAVAILABLE
--- NOTE | 2021-05-24 15:33 | PC.NURSE ---
REPORT GIVEN TO CASSIE TALBERT
[2021-05-24 17:15] LABS: Glucose Point of Care 173 mg/dL (70-110)
[2021-05-24 20:37] LABS: Glucose Point of Care 205 mg/dL (70-110)
--- NOTE | 2021-05-24 21:25 | PC.NURSE ---
Around 2100: Patient requesting something to help with sleep. Notified Dr. Tolentino, Hospitalist. Orders received, see JUN.
[2021-05-24] MEDS: pramipexole 0.25 mg Tablet PO (21:40)
[2021-05-24] MEDS: gemfibrozil 600 mg Tablet PO (21:41)
[2021-05-25] VITALS (9 sets, daily range): BP systolic 132–136; BP diastolic 71–97; PULSE 80–98; RESP 14–27; TEMP 36.6; O2SAT 92–100
[2021-05-25] MEDS: zolpidem 5 mg Tablet PO (00:17)
[2021-05-25 04:57] LABS: Basophils % 0.3 %; Eosinophils # 0.2 10^3/uL (0.0-0.8); Hematocrit 45.3 % (37.0-47.0); Hemoglobin 14.2 g/dL (11.5-15.3); Lymphocytes # 2.8 10^3/uL (0.8-4.8); Lymphocytes % 30.8 %; Mean Corpuscular HGB Conc 31.3 g/dL (30.0-36.0); Mean Corpuscular Hemoglobin 29.9 pg (28.0-34.0); Mean Corpuscular Volume 95.4 fl (81-99); Mean Platelet Volume 11.6 fL (7.4-10.4); Monocytes # 0.6 10^3/uL (0.2-0.9); Monocytes % 6.3 %; Neutrophils # 5.38 10^3/uL (1.8-7.7); Neutrophils % 60.4 %; Nucleated Red Blood Cells % 0 %; Platelet Count 208 10^3/cmm (130-400); Red Blood Count 4.75 10^6/uL (4.1-5.3); Red Cell Distribution Width 13.6 % (12.1-15.1); White Blood Count 8.9 10^3/uL (4.0-10.0)
[2021-05-25] MEDS: morphine 4 mg/mL SDV 1 mL IVP (05:14)
[2021-05-25 05:17] LABS: Alanine Aminotransferase 35 U/L (0-33); Albumin Level 3.8 g/dL (3.5-5.2); Alkaline Phosphatase 135 IU/L (35-105); Anion Gap 15.4 (5-19); Aspartate Amino Transferase 48 U/L (0-32); Blood Urea Nitrogen 14 mg/dL (8-23); Calcium 8.5 mg/dL (8.5-10.5); Carbon Dioxide 27 mmol/L (22-29); Chloride 102 mmol/L (98-107); Globulin 2.7 g/dL (1.3-4.6); Glomerular Filtration Rate 100.6 mL/min (90-130); Glucose 142 mg/dL (65-115); Osmolality Calculated 293 mOsm/kg (285-295); Potassium 4.4 mmol/L (3.5-5.1); Sodium 140 mmol/L (136-145); Total Bilirubin 0.4 mg/dL (0.15-1.2); Total Protein 6.5 g/dL (6.6-8.7)
[2021-05-25 06:32] LABS: Glucose Point of Care 157 mg/dL (70-110)
--- NOTE | 2021-05-25 09:19 | PC.CHAP ---
Pastoral Care Encounter/Spiritual Assessment Type of Contact [] Declined wellness program manager visit [] Patient/Family/Request visit [] Outpatient visit [] Follow-up visit [] Physician referral [] Code/Alert [x] Routine visit [] Staff referral [] Actively dying [] Patient sleeping [] Family support [] [] Out of room [] Palliative care [] [] Receiving care in room [] Pre-surgical visit [] Trauma [] Long length of stay [] ICU visit [] Other: Relational/Emotional Strength [] Patient feels connected with others/family/visitors/staff [] Distress [] Loneliness/isolation [] Abandonment Spirituality of Patient [] Person of Lilliam [] Attends Uatsdin of their Lilliam [] Believes in Prayer [] Reads Bible or Yarsani materials [] There are Spiritual issues to be addressed Risk Compliance Manager Interventions [x] Prayer [x] Active listening [x] Non-anxious presence [x] Spiritual/emotional support [] Crisis/trauma care [] Spiritual counseling [] Bereavement support [] Provided bereavement packet [] Provided Bible/devotional materials [] Provided toy/stuffed animal, coloring book to patient or family member [] Provided Communion [] Anointing/[place] [] Salvation [x] Completed spiritual assessment [] Other: Impact on Illness or Injury [] Angry [] Fearful [] Anxious [] Often cries [] Exhaustion [] Unable to work [] Unable to attend christianity [] Unable to walk/stand [] Unable to read [] Unable to drive [] Unable to eat/drink [] Unable to sleep [] Unable to be with family [] Patient intubated [] Other: Summary resting well Time spent with patient 5 min
[2021-05-25] MEDS: FUROsemide 40 mg Tablet PO (09:28)
[2021-05-25] MEDS: aspirin 81 mg EC Tablet PO (09:28)
[2021-05-25] MEDS: apixaban 5 mg Tablet PO (09:28)
[2021-05-25] MEDS: BuSPIRONE 10 mg Tablet 15 MG PO (09:28)
[2021-05-25] MEDS: buPROPion XL (24 HR) 300 mg Tablet PO (09:28)
[2021-05-25] MEDS: insulin lispro 100 unit/1 mL SUBCUT ×2 (09:29→13:02)
[2021-05-25] MEDS: metoprolol tartrate 50 mg Tablet 150 MG PO (10:34)
[2021-05-25 11:35] LABS: Glucose Point of Care 197 mg/dL (70-110)
--- NOTE | 2021-05-25 14:40 | PM.DCS ---
Discharge Providers Date of Admission: 05/23/21 22:54 Date of Discharge: May 25, 2021 Attending Provider at Admission: Delvin Avery MD Attending Provider at Discharge: Char Diane MD Primary Care Provider: Kristine Rodriguez MD Diagnoses at Discharge Discharge Diagnosis (1) SVT (supraventricular tachycardia): Status: Acute (2) Paroxysmal atrial fibrillation: Status: Acute (3) Generalized anxiety disorder: Status: Chronic Reason for Visit Reason for Visit: CHEST PAIN Hospital Course Hospital Course Lin Henao is a 66 year old female with past medical history of diabetes, COPD, paroxysmal A. fib / flutter , hypertension , obstructive sleep apnea came in with chief complaint of episodic chest discomfort and palpitation going on for the last 24 to 48 hours. in the ER she had 2 episodes of SVT which is spontaneously resolved, she was also found to be in atrial flutter with rate in the 110 to 115. Her dose of metoprolol was increased 150 mg twice a day and see how she does over the next 24 hours. She has had no further episodes of SVT while in the hospital. EKg without acute ST-T wave changes. trop series without significant delta. At discharge HR is 86/min. She is saturating 96% on RA and eager to be discharged home today. Recommend follow up with Dr. Ramos in the next week. Physical Exam Narrative: EXAM NARRATIVE: GEN: Awake, alert and oriented, no acute distress CVS: S1S2 N RS: CTA B/L Abd: Soft, nt/nd , bs+ CODE ENFORCEMENT SUPERVISOR: no focal neuro deficits Discharge Data Data Completed and Pending: Completed Studies During Hospitalization Category Date Time Status XR chest 1V ruma ble [id number] Stat Exams 05/23/21 21:41 Completed Pending at discharge Category Date Time Status Complete Blood Co unt w/Auto AM LABS Lab 05/26/21 04:00 Ordered Comprehensive Met abolic Panel AM LA BS Lab 05/26/21 04:00 Ordered Labs from last 24 hours 05/25/21 05/25/21 05/25/21 11:30 06:25 04:15 WBC RBC Hgb Hct MCV MCH MCHC RDW Plt Count MPV Neut % (Auto) Lymph % (Auto) Divide % (Auto) Eos % (Auto) Baso % (Auto) Neut # (Auto) Lymph # (Auto) Divide # (Auto) Eos # (Auto) Baso # (Auto) Nucleated RBC % (a uto) Nucleated RBCs # Sodium 140 Potassium 4.4 Chloride 102 Carbon Dioxide 27 Anion Gap 15.4 BUN 14 Creatinine 0.6 GFR Calculation 100.6 Glucose 142 H POC Glucose 197 H 157 H Calculated Osmolal ity 293 Calcium 8.5 Total Bilirubin 0.4 AST 48 H ALT 35 H Alkaline Phosphata se 135 H Total Protein 6.5 L Albumin 3.8 Globulin 2.7 05/25/21 05/24/21 05/24/21 04:15 20:07 17:09 WBC 8.9 RBC 4.75 Hgb 14.2 Hct 45.3 MCV 95.4 MCH 29.9 MCHC 31.3 RDW 13.6 Plt Count 208 MPV 11.6 H Neut % (Auto) 60.4 Lymph % (Auto) 30.8 Divide % (Auto) 6.3 Eos % (Auto) 2.0 Baso % (Auto) 0.3 Neut # (Auto) 5.38 Lymph # (Auto) 2.8 Divide # (Auto) 0.6 Eos # (Auto) 0.2 Baso # (Auto) 0.0 Nucleated RBC % (a uto) 0 Nucleated RBCs # 0.0 Sodium Potassium Chloride Carbon Dioxide Anion Gap BUN Creatinine GFR Calculation Glucose POC Glucose 205 H 173 H Calculated Osmolal ity Calcium Total Bilirubin AST ALT Alkaline Phosphata se Total Protein Albumin Globulin Vitals: Last Vital Signs Temp 98 F 05/25/21 03:44 Pulse 98 05/25/21 09:49 Resp 18 05/25/21 05:14 BP 135/71 05/25/21 03:44 Pulse Ox 96 05/25/21 09:49 Discharge Plan Discharge Patient Disposition: Home Condition: Stable Prescriptions: Continued albuterol sulfate [Ventolin HFA] 90 mcg/actuation HFA aerosol inhaler 2 puff INHALATION Q6H PRN (Reason: shortness of breath or wheezing) Qty: 8.5 RF: 5 melatonin 5 mg capsule 10 mg PO BEDTIME PRN (Reason: insomnia) RF: 0 oxybutynin chloride 15 mg tablet extended release 24 hr 15 mg PO DAILY 90 Days Qty: 90 RF: 1 apixaban 5 mg tablet 5 mg PO BID 30 Days Qty: 60 RF: 5 (DME) Blood Glucose Test Strip See Rx Instructions .ROUTE .MEDSUPPLY Qty: 50 RF: 11 (DME) miscellaneous medical [place] [facility] [place] Rx Instructions .Route Qty: 1 RF: 0 cholecalciferol (vitamin D3) 1,250 mcg (50,000 unit) capsule 50,000 unit PO .Weekly 60 Days Qty: 10 RF: 0 Jardiance 25 mg tablet 25 mg PO DAILY Qty: 90 RF: 3 clopidogrel 75 mg tablet 75 mg PO DAILY RF: 0 nitroglycerin 0.4 mg tablet, sublingual 0.4 mg SUBLINGUAL Q5M PRN (Reason: Chest Pain) Qty: 30 RF: 2 diclofenac sodium 50 mg tablet,delayed release (DR/EC) 50 mg PO BID PRN (Reason: pain) 30 Days Qty: 60 RF: 2 buspirone 10 mg tablet See Rx Instructions .ROUTE .COMPLEX Qty: 90 RF: 3 pramipexole 0.25 mg tablet See Rx Instructions .ROUTE .COMPLEX Qty: 30 RF: 3 furosemide 40 mg tablet See Rx Instructions .ROUTE .COMPLEX Qty: 180 RF: 1 docusate sodium 100 mg capsule 200 mg PO BID 30 Days Qty: 120 RF: 2 cyclobenzaprine 5 mg tablet See Rx Instructions .ROUTE .COMPLEX Qty: 120 RF: 2 (DME) Depend Underwear For [facility] See Rx Instructions .Route Qty: 360 RF: 11 aspirin [Adult Aspirin Regimen] 81 mg tablet,delayed release (DR/EC) 81 mg PO DAILY@0800 RF: 0 loratadine 10 mg tablet 10 mg PO BEDTIME@2000 PRN (Reason: allergy symptoms) RF: 0 albuterol sulfate 90 mcg/actuation HFA aerosol inhaler 2 inh INHALATION Q4H PRN (Reason: shortness of breath or wheezing) Qty: 18 RF: 0 multivitamin Tablet 1 tab PO DAILY Qty: 0 RF: 0 ascorbic acid (vitamin C) [Vitamin C] 1,000 mg Tablet 1,000 mg PO DAILY Qty: 0 RF: 0 Wellbutrin XL 300 mg Tablet Extended Release 24 Hr 300 mg PO QAM RF: 0 isosorbide mononitrate 30 mg tablet extended release 24 hr 30 mg PO DAILY RF: 0 potassium chloride 20 mEq tablet,ER particles/crystals 20 meq PO BID RF: 0 famotidine 20 mg tablet 20 mg PO BID RF: 0 duloxetine 60 mg capsule,delayed release(DR/EC) 60 mg PO DAILY RF: 0 suvorexant 10 mg tablet 10 mg PO BEDTIME RF: 0 Changed metoprolol tartrate 100 mg tablet 150 mg PO Q12H 30 Days Qty: 60 RF: 5 Discharge Orders: Discharge Order (Routine); Ordered 05/25/21 Ordered By: Char Diane Referrals: Rehana Ramos MD [Physician] - 7-10 days Kristine Rodriguez MD [Primary Care Provider] - Discharge Diet: Usual diet Discharge Activity: Resume usual activity Patient Instructions: Opioid Safety Discharge Attestations Time Spent in Discharge Care*: less than 30 min Status at Discharge: Cognitive status at discharge: cognitively intact, Behavioral status at discharge: cooperative, Quality Metrics Clinical Quality Measures During this hospital stay, did patient experience: None Coding Level of Care Code Acute [facility] note Diagnoses SVT (supraventricular tachycardia) I47.1 Paroxysmal atrial fibrillation I48.0 Generalized anxiety disorder F41.1
--- NOTE | 2021-05-25 16:25 | PC.NURSE ---
Discharge Note Patient discharged to Home via private vehicle accompanied by ocular care aide. Discharge instructions reviewed with patient and/or apprenticeship representative. Mobile pharmacy medications and/or prescriptions provided. Belongings/home medications returned.
== END 2021-05-25 16:24 | disposition home or self-care (01) ==
LOC: ER 22:58 → ER IP 05-24 09:39 → CSU 05-24 23:38
PROVIDERS: Internal Medicine; Admitting Provider Family Medicine; Emergency Provider Emergency Medicine; PCP Family Medicine; Visit Provider Student in an Organized Health Care Education/Training Program
DX: I47.1 Supraventricular tachycardia (principal); I48.0 Paroxysmal atrial fibrillation; F41.1 Generalized anxiety disorder; E11.9 Type 2 diabetes mellitus without complications; J44.9 Chronic obstructive pulmonary disease, unspecified; G47.33 Obstructive sleep apnea (adult) (pediatric); Z79.82 Long term (current) use of aspirin; Z79.01 Long term (current) use of anticoagulants; I25.10 Atherosclerotic heart disease of native coronary artery without angina pectoris; M79.7 Fibromyalgia; I10 Essential (primary) hypertension; F17.210 Nicotine dependence, cigarettes, uncomplicated
CPT/HCPCS: 12345; 36415; 36416; 71045; 80053; 81001; 82962; 83690; 83735; 83880; 84443; 84484; 85025; 85610; 85730; 93005; 96372; G0378; J1815; J2270; J2405; J3490; J7040

== ENCOUNTER 2021-06-14 21:19 | Emergency (ER) | payer MEDICARE, MEDICAID, SELFPAY ==
[2021-05-07 14:34] VITALS: BP 146/84; BMI 43.9
[2021-06-14 21:38] VITALS: BP 111/67; PULSE 112; RESP 18; TEMP 37.3; O2SAT 96; BMI 42.9
--- NOTE | 2021-06-14 21:50 | CTR_ITS ---
PROCEDURE INFORMATION: Exam: CT Head Without Contrast Exam date and time: 06/14/2021 9:50 PM Age: 66 years old Clinical indication: Injury or trauma; Blunt trauma (contusions or hematomas); Without loss of consciousness; Injury details: Fall/hit back of head; Additional info: Fall and hit head. Headache, no loc. TECHNIQUE: Imaging protocol: Computed tomography of the head without contrast. Radiation optimization: All CT scans at this facility use at least one of these dose optimization techniques: automated exposure control; mA and/or kV adjustment per patient size (includes targeted exams where dose is matched to clinical indication); or iterative reconstruction. COMPARISON: US biopsy/FNA thyroid [id number] 05/12/2021 12:52 PM RADIATION DOSE METRICS: Total DLP (mGy-cm): 847.55 FINDINGS: Brain: Age appropriate atrophy and small vessel ischemic change. No evidence of intracranial hemorrhage, mass effect, midline shift or extra-axial fluid collections. Midline structures are normal. Brooks-white matter differentiation is normal. Cerebral ventricles: No ventriculomegaly. Paranasal sinuses: Mucosal thickening in the ethmoid and maxillary sinuses. Mastoid air cells: Visualized mastoid air cells are well aerated. Vasculature: Carotid atherosclerotic calcification. Bones/joints: Unremarkable. No acute fracture. Soft tissues: Unremarkable. CT/CT head wo con* [id number] IMPRESSION: No acute intracranial injury.
--- NOTE | 2021-06-14 21:50 | CTR_ITS ---
PROCEDURE INFORMATION: Exam: CT Cervical Spine Without Contrast Exam date and time: 06/14/2021 9:50 PM Age: 66 years old Clinical indication: Injury or trauma; Fall; Blunt trauma; Additional info: Fall at home, hit head, no loc, has neck pain. TECHNIQUE: Imaging protocol: Computed tomography images of the cervical spine without contrast. Radiation optimization: All CT scans at this facility use at least one of these dose optimization techniques: automated exposure control; mA and/or kV adjustment per patient size (includes targeted exams where dose is matched to clinical indication); or iterative reconstruction. COMPARISON: US biopsy/FNA thyroid [id number] 05/12/2021 12:52 PM RADIATION DOSE METRICS: Total DLP (mGy-cm): 963.06 FINDINGS: Vertebrae: No acute fracture. Normal alignment. C2-C3: No significant disc protrusion. No severe spinal canal stenosis. No significant neural foraminal narrowing. C3-C4: No significant disc protrusion. No severe spinal canal stenosis. No significant neural foraminal narrowing. C4-C5: No significant disc protrusion. No severe spinal canal stenosis. No significant neural foraminal narrowing. C5-C6: No significant disc protrusion. No severe spinal canal stenosis. No significant neural foraminal narrowing. C6-C7: No significant disc protrusion. No severe spinal canal stenosis. No significant neural foraminal narrowing. C7-T1: No significant disc protrusion. No severe spinal canal stenosis. No significant neural foraminal narrowing. Soft tissues: Unremarkable. Lungs: Lung apices are normal. CT/CT cervical spin wo con* [id number] IMPRESSION: No acute findings.
--- NOTE | 2021-06-14 21:52 | W.ED.FALL ---
HPI - Fall General: Chief Complaint: Fall Stated Complaint: FELL OFF COUCH Time Seen by Provider: 06/14/21 21:40 History of Present Illness: Patient is a 66-year-old female who comes to the ED via EMS after fall. Patient is on Eliquis. Patient currently uses an electric wheelchair due to chronic leg issues. Patient says she was transferring from her couch into her electric wheelchair she tripped and fell hitting her head on the hardwood floor. Denies any loss of consciousness or bleeding head injury. Since fall she has some dizziness, headache and neck pain. Denies any chest pain, shortness of breath, abdominal pain, acute bladder or bowel symptoms. Associated symptoms-after fall: Reports headache(s) and neck pain; Denies abdominal pain, chest pain or hematuria Review of Systems Const: Denies: fever(s), chills or fatigue Eyes: Denies: change in vision or eye discomfort ENMT: Denies: throat pain, odynophagia, nasal discharge or nasal congestion Card: Denies: chest pain, palpitations, edema, swelling of feet/ankles, dyspnea on exertion or orthopnea Resp: Denies: dyspnea, productive cough or non-productive cough GI: Denies: abdominal pain, nausea, vomiting, diarrhea, constipation or hematochezia : Denies: flank pain, dysuria or hematuria Musc: Reports: neck pain; Denies: back pain or extremity swelling Skin/Breast: Denies: rash or new lesions Neuro: Reports: headache(s) and dizziness; Denies: numbness in extremities or weakness in extremities [facility] ED PFSH: Medical History Atypical chest pain Bipolar depression CAD (coronary artery disease) Chest pain Chronic headache Chronic pain syndrome Due to her weight and other comorbidities I do not think that there is much that pain management would be able to do. They can do localized injections or treatments on specific joints but she would never be a surgical candidate. Constipation, chronic COPD (chronic obstructive pulmonary disease) Diabetes mellitus type 2 in obese DM type 2 (diabetes mellitus, type 2) Fibromyalgia Generalized anxiety disorder GERD (gastroesophageal reflux disease) Hyperlipemia Hypertension, benign Insomnia Major depressive disorder, recurrent, moderate Mixed stress and urge urinary incontinence Nicotine dependence, cigarettes, with other nicotine-induced disorders NONA (obstructive sleep apnea) Uses CPAP Overactive bladder Panic disorder [episodic paroxysmal anxiety] Paroxysmal A-fib Paroxysmal atrial fibrillation (~08/2020) Paroxysmal SVT (supraventricular tachycardia) Peripheral Vascular Disease RLS (restless legs syndrome) Surgical History H/O thyroidectomy H/O: hysterectomy Hx of cholecystectomy S/P appendectomy Family History Mother , at age 75 Hypertension Father , at age 87 Hypertension Denies family history of Lung disease Stroke Social History Smoking and tobacco status: current every day smoker cigarettes Packs smoked per day: 1 Years cigarettes smoked: 44 Second hand smoke exposure: No Alcohol intake: never Adopted: No Caregiver/support person: No Lives independently: Yes Household members: none Housing: Apartment Marital status: / Number of children: 8 Number of grandchildren: 14 Highest education level completed: Some College, No Degree service: No Current occupational status: disabled Pets and animals: Yes Pets & animals: dog(s) History of recent travel: No Leisure activites: art, music, reading and other Sexually active: No Current gender identity: Female Lilliam/Christianity: Spiritism Special lilliam needs: No Agree to transfusion: Yes Financial difficulty paying for basics: Not Very Hard Female Reproductive History: Para: 8 Spontaneous abortions: No Physical Exam Const: COMMON NORMALS: no acute distress, patient oriented x3 and alert GENERAL APPEARANCE: cooperative and comfortable HENMT: COMMON NORMALS: normocephalic HEAD & SCALP: normocephalic MOUTH: Normal oral and palatal mucosa present THROAT: posterior oropharynx normal and uvula midline Eye: COMMON NORMALS: Equal, round and reactive pupils present, EOMs intact bilaterally and conjunctivae normal CONJUNCTIVA: Yes conjunctivae normal PUPIL: Yes Equal, round and reactive pupils present Neck/C-Spine: COMMON NORMALS: supple GENERAL: Yes normal visual inspection CERVICAL SPINE: Yes pain with cervical ROM, Yes Paracervical muscle tenderness bilateral and Yes Trapezius muscle tenderness bilateral Resp: COMMON NORMALS: normal respiratory effort, No retractions, No use of accessory muscles and clear to auscultation bilaterally AUSCULTATION: clear to auscultation bilaterally Cardio: COMMON NORMALS: regular rate, regular rhythm, S1 normal heart sound present, S2 normal heart sound present, No gallops present (Cardio), No clicks present (Cardio), No murmurs present (Cardio) and Peripheral pulses 2+ throughout RATE: regular rate RHYTHM: regular rhythm HEART SOUNDS: S1 normal heart sound present and S2 normal heart sound present PERIPHERAL PULSES: Peripheral pulses 2+ throughout GI: COMMON NORMALS: Normal to inspection, nondistended, normoactive bowel sounds present, Soft to palpation, non-tender and no masses PALPATION: Yes Soft to palpation : COMMON NORMALS: Yes no CVA tenderness BLADDER/KIDNEY EXAM: Yes no CVA tenderness Back/Pelvis: COMMON NORMALS: no CVA tenderness Extremity: COMMON NORMALS: normal to inspection and no pedal edema Neuro: COMMON NORMALS: patient oriented x3, CN's II-XII intact bilaterally, moves all extremities, no focal motor deficits and no sensory deficits noted SENSORIUM/ORIENTATION: Yes alert SENSORY EXAM: Yes extremities (intact) MOTOR EXAM: 5/5 motor strength present throughout Skin: GENERAL SKIN EXAM: dry skin Course Reevaluation(s): Reevaluation #1: I went in to check on patient tell her about imaging reports. Patient said the hydrocodone she was given has helped her neck pain and headache and she is feeling better. Time: 11:05 Vital Signs: Vital signs: Vital Signs Temperature 99.2 F 06/14/21 21:38 Pulse Rate 117 H 06/14/21 22:05 Respiratory Rate 20 H 06/14/21 22:05 Blood Pressure 139/88 06/14/21 22:05 Pulse Oximetry 95 06/14/21 22:05 MDM - Fall Medical Decision Making Patient is a 66-year-old female comes to the ED after having a fall. Patient has chronic bilateral leg issues and currently uses an electric wheelchair. Patient fell transferring from couch into chair. Patient says she fell and hit her head but denies any loss of consciousness. she is having some neck pain, headache and dizziness. Denies any chest pain, shortness of breath. Patient is on Eliquis. Vitals stable. Exam is benign neuro exam shows no deficits. CT of cervical spine and head CT showed no acute fractures or findings. Patient was diagnosed with minor head trauma and cervical muscle pain. She was given dose of hydrocodone here in the ED and it helped with her symptoms. Patient discharged home and told to follow-up with PCP this week for reevaluation. Return to ED precautions given. Patient understood and agreed with plan. Lab Data Radiology Impressions Cervical Spine CT 06/14/21 21:50 IMPRESSION: No acute findings. Head CT 06/14/21 21:50 IMPRESSION: No acute intracranial injury. Discharge Plan Discharge Patient Disposition: Home Clinical Impression: Minor head trauma, Cervical muscle pain Condition: Stable Prescriptions: No Action albuterol sulfate [Ventolin HFA] 90 mcg/actuation HFA aerosol inhaler 2 puff INHALATION Q6H PRN (Reason: shortness of breath or wheezing) Qty: 8.5 5RF melatonin 5 mg capsule 10 mg PO BEDTIME PRN (Reason: insomnia) 0RF oxybutynin chloride 15 mg tablet extended release 24 hr 15 mg PO DAILY 90 Days Qty: 90 1RF apixaban 5 mg tablet 5 mg PO BID 30 Days Qty: 60 5RF (DME) Blood Glucose Test Strip See Rx Instructions .ROUTE .MEDSUPPLY Qty: 50 11RF Rx Instructions: Brand/type to go with meter per insurance coverage (DME) miscellaneous medical supply Misc See Rx Instructions .Route Qty: 1 0RF Rx Instructions: use 1-2l at night cholecalciferol (vitamin D3) 1,250 mcg (50,000 unit) capsule 50,000 unit PO .Weekly 60 Days Qty: 10 0RF Rx Instructions: ON MONDAYS Jardiance 25 mg tablet 25 mg PO DAILY Qty: 90 3RF Rx Instructions: Take one tablet by mouth daily. diltiazem HCl 120 mg capsule,extended release 12 hr 120 mg PO BID Qty: 60 3RF clopidogrel 75 mg tablet 75 mg PO DAILY 0RF nitroglycerin 0.4 mg tablet, sublingual 0.4 mg SUBLINGUAL Q5M PRN (Reason: Chest Pain) Qty: 30 2RF diclofenac sodium 50 mg tablet,delayed release (DR/EC) 50 mg PO BID PRN (Reason: pain) 30 Days Qty: 60 2RF Rx Instructions: WITH FOOD buspirone 10 mg tablet See Rx Instructions .ROUTE .COMPLEX Qty: 90 3RF Dose Instruction: TAKE 1 AND 1/2 TABLETS BY MOUTH TWICE A DAY Rx Instructions: TAKE 1 AND 1/2 TABLETS BY MOUTH TWICE A DAY pramipexole 0.25 mg tablet See Rx Instructions .ROUTE .COMPLEX Qty: 30 3RF Dose Instruction: TAKE ONE TABLET BY MOUTH DAILY AT BEDTIME Rx Instructions: TAKE ONE TABLET BY MOUTH DAILY AT BEDTIME naproxen sodium 220 mg tablet 440 mg PO .at bedtime 0RF suvorexant 15 mg tablet 15 mg PO BEDTIME Qty: 30 0RF furosemide 40 mg tablet See Rx Instructions .ROUTE .COMPLEX Qty: 180 1RF Dose Instruction: TAKE ONE TABLET BY MOUTH TWICE A DAY FOR 90 DAYS Rx Instructions: TAKE ONE TABLET BY MOUTH TWICE A DAY FOR 90 DAYS docusate sodium 100 mg capsule 200 mg PO BID 30 Days Qty: 120 2RF cyclobenzaprine 5 mg tablet See Rx Instructions .ROUTE .COMPLEX Qty: 120 2RF Dose Instruction: TAKE ONE TABLET BY MOUTH EVERY MORNING 1 TABLET BY MOUTH IN THE AFTERNOON AND TAKE 2 TABLETS BY MOUTH DAILY AT BEDTIME Rx Instructions: TAKE ONE TABLET BY MOUTH EVERY MORNING 1 TABLET BY MOUTH IN THE AFTERNOON AND TAKE 2 TABLETS BY MOUTH DAILY AT BEDTIME (DME) Depend Underwear For Women XL [facility] See Rx Instructions .Route Qty: 360 11RF Rx Instructions: As directed, 12 daily aspirin [Adult Aspirin Regimen] 81 mg tablet,delayed release (DR/EC) 81 mg PO DAILY@0800 0RF loratadine 10 mg tablet 10 mg PO BEDTIME@2000 PRN (Reason: allergy symptoms) 0RF albuterol sulfate 90 mcg/actuation HFA aerosol inhaler 2 inh INHALATION Q4H PRN (Reason: shortness of breath or wheezing) Qty: 18 0RF multivitamin Tablet 1 tab PO DAILY Qty: 0 0RF ascorbic acid (vitamin C) [Vitamin C] 1,000 mg Tablet 1,000 mg PO DAILY Qty: 0 0RF Wellbutrin XL 300 mg Tablet Extended Release 24 Hr 300 mg PO QAM 0RF isosorbide mononitrate 30 mg tablet extended release 24 hr 30 mg PO DAILY 0RF potassium chloride 20 mEq tablet,ER particles/crystals 20 meq PO BID 0RF famotidine 20 mg tablet 20 mg PO BID 0RF duloxetine 60 mg capsule,delayed release(DR/EC) 60 mg PO DAILY 0RF metoprolol tartrate 100 mg tablet 150 mg PO Q12H 30 Days Qty: 60 5RF Discharge Orders: Discharge ED (Routine); Ordered 06/14/21 Ordered By: Jamie Broderick Referrals: Kristine Rodriguez MD [Primary Care Provider] - Discharge Diet: Regular Discharge Activity: Increase activity as tolerated Activity Restrictions/Additional Instructions: Follow-up with medical provider as directed in the next 3 to 5 days for reevaluation. Continue taking all home medications as previously prescribed. Return to the ER or your medical provider if condition worsens. Please read and understand discharge instructions. Thank you for choosing [facility] for your healthcare needs today. Please realize this is an emergency room and that we are providing you with a medical screening exam and this may not be complete and all inclusive of all the testing and or work up that you may need to determine your ailment or severity of your illness. It is very important that you follow up as instructed or that you return to the Emergency Department should you have concerns or if your condition changes or worsens in any way. Coding Level of Care Code ED [employer] for Urvashi Shaw Exam Comprehensive
[2021-06-14] MEDS: HYDROcodone-acetaminophen 7.5-325 mg Tablet 1 TAB PO (22:04)
[2021-06-14 22:05] VITALS: BP 139/88; PULSE 117; RESP 20; O2SAT 95
== END 2021-06-14 23:41 | disposition home or self-care (01) ==
PROVIDERS: Emergency Provider Physician Assistant; PCP Family Medicine
DX: S09.8XXA Other specified injuries of head, initial encounter (principal); M79.18 Myalgia, other site; Z79.82 Long term (current) use of aspirin; Z79.02 Long term (current) use of antithrombotics/antiplatelets; I25.10 Atherosclerotic heart disease of native coronary artery without angina pectoris; J44.9 Chronic obstructive pulmonary disease, unspecified; E11.9 Type 2 diabetes mellitus without complications; E78.5 Hyperlipidemia, unspecified; I10 Essential (primary) hypertension; F17.210 Nicotine dependence, cigarettes, uncomplicated; W08.XXXA Fall from other furniture, initial encounter
CPT/HCPCS: 70450; 72125; 99283

== ENCOUNTER 2021-06-23 18:57 | Emergency (ER) | payer MEDICARE, MEDICAID, SELFPAY ==
[2021-05-07 14:34] VITALS: BP 146/84; BMI 43.9
--- NOTE | 2021-06-23 18:59 | XRR_ITS ---
PROCEDURE INFORMATION: Exam: XR Chest Exam date and time: 06/23/2021 6:59 PM Age: 66 years old Clinical indication: Pain; Chest pressure; Additional info: Cp TECHNIQUE: Imaging protocol: XR of the chest. Views: 1 view. COMPARISON: CR (CHEST, ) 05/23/2021 10:07 PM FINDINGS: Lungs: Lungs are clear bilaterally. Pleural spaces: No pleural effusion. No pneumothorax. Heart/Mediastinum: Stable mild enlargement of the cardiac silhouette. Mediastinal contours are unremarkable. Vasculature: Stable vascular calcifications in the aorta. Bones/joints: Unremarkable for age. XR/XR chest 1V portable [id number] IMPRESSION: 1. No acute cardiopulmonary process. 2. Incidental/nonacute findings are listed in the report.
[2021-06-23 19:08] VITALS: BP 160/101; PULSE 99; RESP 18; TEMP 36.3; O2SAT 93; BMI 42.9
[2021-06-23 19:14] LABS: Basophils % 0.4 %; Eosinophils # 0.2 10^3/uL (0.0-0.8); Eosinophils % 1.9 %; Hematocrit 45.9 % (37.0-47.0); Hemoglobin 14.7 g/dL (11.5-15.3); Lymphocytes % 32.8 %; Mean Corpuscular Hemoglobin 29.9 pg (28.0-34.0); Mean Corpuscular Volume 93.3 fl (81-99); Mean Platelet Volume 12.1 fL (7.4-10.4); Monocytes # 0.5 10^3/uL (0.2-0.9); Monocytes % 5.8 %; Neutrophils % 58.8 %; Nucleated Red Blood Cells % 0 %; Platelet Count 214 10^3/cmm (130-400); Red Blood Count 4.92 10^6/uL (4.1-5.3); Red Cell Distribution Width 14.1 % (12.1-15.1); White Blood Count 9.2 10^3/uL (4.0-10.0)
--- NOTE | 2021-06-23 19:17 | W.ED.ANXIETY ---
HPI - Anxiety General: Chief Complaint: Anxiety Stated Complaint: CHEST PAIN, ANXIETY Time Seen by Provider: 06/23/21 19:01 History of Present Illness: 66-year-old female comes in today with some complaints of chest discomfort intermittent for the last 2 days. Patient states that she was visiting at a friend's house and did not have her nitroglycerin with her and was not able to take a tablet. Her friend then called the ambulance for her to be evaluated. Patient reports some mild nausea. Patient is a tobacco smoker and a THC user. Patient has a history of diabetes and coronary artery disease. Patient has had a hysterectomy, gallbladder surgery, appendectomy, and 2 live births. Patient reports some depression but denies suicidality. Patient had an appointment scheduled for tomorrow with her primary care but it was rescheduled due to weather, the appointment now is scheduled to next Tuesday. Patient responds appropriately to questions. Associated symptoms: Reports chest pain and nausea Review of Systems General: Reports: 10 or more systems reviewed and unremarkable except in HPI and below Card: Reports: chest pain Resp: Denies: dyspnea GI: Reports: nausea and constipation Psych: Reports: anxiety and depression PFSH ED PFSH: Medical History Atypical chest pain Bipolar depression CAD (coronary artery disease) Chest pain Chronic headache Chronic pain syndrome Due to her weight and other comorbidities I do not think that there is much that pain management would be able to do. They can do localized injections or treatments on specific joints but she would never be a surgical candidate. Constipation, chronic COPD (chronic obstructive pulmonary disease) Diabetes mellitus type 2 in obese DM type 2 (diabetes mellitus, type 2) Fibromyalgia Generalized anxiety disorder GERD (gastroesophageal reflux disease) Hyperlipemia Hypertension, benign Insomnia Major depressive disorder, recurrent, moderate Mixed stress and urge urinary incontinence Nicotine dependence, cigarettes, with other nicotine-induced disorders NONA (obstructive sleep apnea) Uses CPAP Overactive bladder Panic disorder [episodic paroxysmal anxiety] Paroxysmal A-fib Paroxysmal atrial fibrillation (~08/2020) Paroxysmal SVT (supraventricular tachycardia) Peripheral Vascular Disease RLS (restless legs syndrome) Surgical History H/O thyroidectomy H/O: hysterectomy Hx of cholecystectomy S/P appendectomy Family History Mother , at age 75 Hypertension Father , at age 87 Hypertension Denies family history of Lung disease Stroke Social History Smoking and tobacco status: current every day smoker cigarettes Packs smoked per day: 1 Years cigarettes smoked: 44 Second hand smoke exposure: No Alcohol intake: never Adopted: No Caregiver/support person: No Lives independently: Yes Household members: none Housing: Apartment Marital status: / Number of children: 8 Number of grandchildren: 14 Highest education level completed: Some College, No Degree service: No Current occupational status: disabled Pets and animals: Yes Pets & animals: dog(s) History of recent travel: No Leisure activites: art, music, reading and other Sexually active: No Current gender identity: Female Lilliam/L[employer] Day: Pent[employer]ism Special lilliam needs: No Agree to transfusion: Yes Financial difficulty paying for basics: Not Very Hard Female Reproductive History: Para: 8 Spontaneous abortions: No Physical Exam Const: COMMON NORMALS: alert HENMT: COMMON NORMALS: atraumatic HEAD & SCALP: atraumatic Neck/C-Spine: COMMON NORMALS: full ROM Resp: COMMON NORMALS: normal respiratory effort and clear to auscultation bilaterally AUSCULTATION: clear to auscultation bilaterally Cardio: COMMON NORMALS: regular rate and regular rhythm RATE: regular rate RHYTHM: regular rhythm GI: COMMON NORMALS: Soft to palpation PALPATION: Yes Soft to palpation Extremity: COMMON NORMALS: no pedal edema Neuro: COMMON NORMALS: moves all extremities SENSORIUM/ORIENTATION: Yes alert SPEECH: speech normal Psych: COMMON NORMALS: cooperative MOOD & AFFECT: Yes depressed mood Skin: COMMON NORMALS: no rashes or lesions noted GENERAL SKIN EXAM: no rashes or lesions noted Course Vital Signs: Vital signs: Vital Signs Temperature 97.4 F L 06/23/21 19:08 Pulse Rate 99 06/23/21 19:08 Respiratory Rate 18 06/23/21 19:08 Blood Pressure 160/101 06/23/21 19:08 Pulse Oximetry 93 06/23/21 19:08 MDM - Anxiety Medical Decision Making 66-year-old female comes in today with complaints of chest discomfort. Patient reports no pain at this time in the ER. Patient reports that she is needing something to help her sleep at night. Patient also complains of chronic back and neck pain. On exam patient is obese. Lungs are clear to auscultation. No edema is noted in lower extremities. Abdomen soft nontender. Patient is tearful at times. Patient reports that her estranged significant other and her have been fighting. Patient denies any suicidal ideation. Vital signs were normal. Differential diagnosis includes anxiety, depression, pneumonia, ACS. Chest x-ray was normal. Laboratory values were unremarkable. I feel the patient probably came in today mainly looking for symptom control of her insomnia and probable chronic pain. I reviewed with patient that in the emergency room we could not handle her chronic pain she will need to follow-up with her primary care or pain customer care specialist for further evaluation. I did write for her 5 mg zolpidem to help with her insomnia for the next 7 days. Patient was agreeable to plan and need for follow-up. Lab Data : 06/23/21 Unknown 06/23/21 Unknown Radiology Impressions Chest X-Ray 06/23/21 18:59 IMPRESSION: 1. No acute cardiopulmonary process. 2. Incidental/nonacute findings are listed in the report. Laboratory Results WBC 9.2 10^3/uL (4.0-10.0) 06/23/21 Unknown RBC 4.92 10^6/uL (4.1-5.3) 06/23/21 Unknown Hgb 14.7 g/dL (11.5-15.3) 06/23/21 Unknown Hct 45.9 % (37.0-47.0) 06/23/21 Unknown MCV 93.3 fl (81-99) 06/23/21 Unknown MCH 29.9 pg (28.0-34.0) 06/23/21 Unknown MCHC 32.0 g/dL (30.0-36.0) 06/23/21 Unknown RDW 14.1 % (12.1-15.1) 06/23/21 Unknown Plt Count 214 10^3/cmm (130-400) 06/23/21 Unknown MPV 12.1 fL (7.4-10.4) H 06/23/21 Unknown Neut % (Auto) 58.8 % 06/23/21 Unknown Lymph % (Auto) 32.8 % 06/23/21 Unknown Woodson % (Auto) 5.8 % 06/23/21 Unknown Eos % (Auto) 1.9 % 06/23/21 Unknown Baso % (Auto) 0.4 % 06/23/21 Unknown Neut # (Auto) 5.40 10^3/uL (1.8-7.7) 06/23/21 Unknown Lymph # (Auto) 3.0 10^3/uL (0.8-4.8) 06/23/21 Unknown Woodson # (Auto) 0.5 10^3/uL (0.2-0.9) 06/23/21 Unknown Eos # (Auto) 0.2 10^3/uL (0.0-0.8) 06/23/21 Unknown Baso # (Auto) 0.0 10^3/uL (0.0-0.1) 06/23/21 Unknown Nucleated RBC % (auto) 0 % 06/23/21 Unknown Nucleated RBCs # 0.0 /100WBC 06/23/21 Unknown PT 14.00 SECONDS (12.1-14.9) 06/23/21 Unknown INR 1.05 (0.8-1.2) 06/23/21 Unknown Sodium 138 mmol/L (136-145) 06/23/21 Unknown Potassium 4.4 mmol/L (3.5-5.1) 06/23/21 Unknown Chloride 102 mmol/L (98-107) 06/23/21 Unknown Carbon Dioxide 24 mmol/L (22-29) 06/23/21 Unknown Anion Gap 16.4 (5-19) 06/23/21 Unknown BUN 10 mg/dL (8-23) 06/23/21 Unknown Creatinine 0.6 mg/dL (0.5-0.9) 06/23/21 Unknown GFR Calculation 100.6 mL/min (90-130) 06/23/21 Unknown Glucose 181 mg/dL (65-115) H 06/23/21 Unknown Calculated Osmolality 290 mOsm/kg (285-295) 06/23/21 Unknown Calcium 9.1 mg/dL (8.5-10.5) 06/23/21 Unknown Total Bilirubin 0.2 mg/dL (0.15-1.2) 06/23/21 Unknown AST 44 U/L (0-32) H 06/23/21 Unknown ALT 43 U/L (0-33) H 06/23/21 Unknown Alkaline Phosphatase 146 IU/L (35-105) H 06/23/21 Unknown Troponin T Baseline 12 ng/L (0-10) H 06/23/21 Unknown Total Protein 7.2 g/dL (6.6-8.7) 06/23/21 Unknown Albumin 4.3 g/dL (3.5-5.2) 06/23/21 Unknown Globulin 2.9 g/dL (1.3-4.6) 06/23/21 Unknown EKG Data EKG 1: EKG interpretation date: 06/23/21 EKG interpretation time: 19:39 Prior EKG tracings: available for review Interpretation: Chest X-Ray 06/23/21 18:59 IMPRESSION: 1. No acute cardiopulmonary process. 2. Incidental/nonacute findings are listed in the report. EKG shows a sinus rhythm with sinus arrhythmia. Slightly irregular rate at [address] elevation or ectopy is noted. When compared to prior exam atrial fibrillation is not present. Other EKG comments: Chest X-Ray 06/23/21 18:59 IMPRESSION: 1. No acute cardiopulmonary process. 2. Incidental/nonacute findings are listed in the report. Discharge Plan Discharge Patient Disposition: Home Clinical Impression: Atypical angina, Acute anxiety Insomnia Qualifiers: Insomnia type: unspecified Qualified Code(s): G47.00 - Insomnia, unspecified Condition: Stable Prescriptions: New Ambien 5 mg tablet 5 mg PO .HS PRN (Reason: insomnia) Qty: 7 0RF No Action albuterol sulfate [Ventolin HFA] 90 mcg/actuation HFA aerosol inhaler 2 puff INHALATION Q6H PRN (Reason: shortness of breath or wheezing) Qty: 8.5 5RF melatonin 5 mg capsule 10 mg PO BEDTIME PRN (Reason: insomnia) 0RF oxybutynin chloride 15 mg tablet extended release 24 hr 15 mg PO DAILY 90 Days Qty: 90 1RF apixaban 5 mg tablet 5 mg PO BID 30 Days Qty: 60 5RF (DME) Blood Glucose Test Strip See Rx Instructions .ROUTE .MEDSUPPLY Qty: 50 11RF Rx Instructions: Brand/type to go with meter per insurance coverage (DME) miscellaneous medical supply Misc See Rx Instructions .Route Qty: 1 0RF Rx Instructions: use 1-2l at night cholecalciferol (vitamin D3) 1,250 mcg (50,000 unit) capsule 50,000 unit PO .Weekly 60 Days Qty: 10 0RF Rx Instructions: ON MONDAYS Jardiance 25 mg tablet 25 mg PO DAILY Qty: 90 3RF Rx Instructions: Take one tablet by mouth daily. diltiazem HCl 120 mg capsule,extended release 12 hr 120 mg PO BID Qty: 60 3RF clopidogrel 75 mg tablet 75 mg PO DAILY 0RF nitroglycerin 0.4 mg tablet, sublingual 0.4 mg SUBLINGUAL Q5M PRN (Reason: Chest Pain) Qty: 30 2RF diclofenac sodium 50 mg tablet,delayed release (DR/EC) 50 mg PO BID PRN (Reason: pain) 30 Days Qty: 60 2RF Rx Instructions: WITH FOOD buspirone 10 mg tablet See Rx Instructions .ROUTE .COMPLEX Qty: 90 3RF Dose Instruction: TAKE 1 AND 1/2 TABLETS BY MOUTH TWICE A DAY Rx Instructions: TAKE 1 AND 1/2 TABLETS BY MOUTH TWICE A DAY pramipexole 0.25 mg tablet See Rx Instructions .ROUTE .COMPLEX Qty: 30 3RF Dose Instruction: TAKE ONE TABLET BY MOUTH DAILY AT BEDTIME Rx Instructions: TAKE ONE TABLET BY MOUTH DAILY AT BEDTIME naproxen sodium 220 mg tablet 440 mg PO .at bedtime 0RF furosemide 40 mg tablet See Rx Instructions .ROUTE .COMPLEX Qty: 180 1RF Dose Instruction: TAKE ONE TABLET BY MOUTH TWICE A DAY FOR 90 DAYS Rx Instructions: TAKE ONE TABLET BY MOUTH TWICE A DAY FOR 90 DAYS docusate sodium 100 mg capsule 200 mg PO BID 30 Days Qty: 120 2RF cyclobenzaprine 5 mg tablet See Rx Instructions .ROUTE .COMPLEX Qty: 120 2RF Dose Instruction: TAKE ONE TABLET BY MOUTH EVERY MORNING 1 TABLET BY MOUTH IN THE AFTERNOON AND TAKE 2 TABLETS BY MOUTH DAILY AT BEDTIME Rx Instructions: TAKE ONE TABLET BY MOUTH EVERY MORNING 1 TABLET BY MOUTH IN THE AFTERNOON AND TAKE 2 TABLETS BY MOUTH DAILY AT BEDTIME (DME) Depend Underwear For Women XL [facility] [place] See Rx Instructions .Route Qty: 360 11RF Rx Instructions: As directed, 12 daily suvorexant 15 mg tablet 15 mg PO BEDTIME Qty: 30 0RF aspirin [Adult Aspirin Regimen] 81 mg tablet,delayed release (DR/EC) 81 mg PO DAILY@0800 0RF loratadine 10 mg tablet 10 mg PO BEDTIME@2000 PRN (Reason: allergy symptoms) 0RF albuterol sulfate 90 mcg/actuation HFA aerosol inhaler 2 inh INHALATION Q4H PRN (Reason: shortness of breath or wheezing) Qty: 18 0RF multivitamin Tablet 1 tab PO DAILY Qty: 0 0RF ascorbic acid (vitamin C) [Vitamin C] 1,000 mg Tablet 1,000 mg PO DAILY Qty: 0 0RF Wellbutrin XL 300 mg Tablet Extended Release 24 Hr 300 mg PO QAM 0RF isosorbide mononitrate 30 mg tablet extended release 24 hr 30 mg PO DAILY 0RF potassium chloride 20 mEq tablet,ER particles/crystals 20 meq PO BID 0RF famotidine 20 mg tablet 20 mg PO BID 0RF duloxetine 60 mg capsule,delayed release(DR/EC) 60 mg PO DAILY 0RF metoprolol tartrate 100 mg tablet 150 mg PO Q12H 30 Days Qty: 60 5RF Discharge Orders: Discharge ED (Routine); Ordered 06/23/21 Ordered By: Tushar Mcnair Referrals: Kristine Rodriguez MD [Primary Care Provider] - Discharge Diet: Usual diet Discharge Activity: Increase activity as tolerated Patient Instructions: Chest Pain (ED) Activity Restrictions/Additional Instructions: Continue with routine care. Follow-up with primary care at next scheduled appointment. Drink plenty of water with medications. Return to emergency department for new concerns. Coding Level of Care Code ED Completion Supervisor for Urvashi Fwd Exam Comprehensive
[2021-06-23 19:36] LABS: INR 1.05 (0.8-1.2)
[2021-06-23 19:43] LABS: Troponin(5th) Baseline 12 ng/L (0-10)
[2021-06-23 20:18] LABS: Alanine Aminotransferase 43 U/L (0-33); Albumin Level 4.3 g/dL (3.5-5.2); Alkaline Phosphatase 146 IU/L (35-105); Aspartate Amino Transferase 44 U/L (0-32); Blood Urea Nitrogen 10 mg/dL (8-23); Calcium 9.1 mg/dL (8.5-10.5); Carbon Dioxide 24 mmol/L (22-29); Chloride 102 mmol/L (98-107); Globulin 2.9 g/dL (1.3-4.6); Glomerular Filtration Rate 100.6 mL/min (90-130); Glucose 181 mg/dL (65-115); Osmolality Calculated 290 mOsm/kg (285-295); Sodium 138 mmol/L (136-145); Total Bilirubin 0.2 mg/dL (0.15-1.2); Total Protein 7.2 g/dL (6.6-8.7)
[2021-06-23 20:20] LABS: Anion Gap 16.4 (5-19); Potassium 4.4 mmol/L (3.5-5.1)
--- NOTE | 2021-06-23 20:59 | ECG_ITS ---
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 Measurements Intervals Laie Rate: 96 P: 86 AK: 149 QRS: -14 QRSD: 104 T: -2 QT: 379 QTc: 481 Interpretive Statements ATRIAL FLUTTER Compared to ECG 05/24/2021 03:33:38 No significant change Electronically Signed On 06-23-2021 20:43:16 COSMETICIAN by Shahana Hernandez M.D. [email or web address]
[2021-06-23] MEDS: zolpidem 5 mg Tablet PO (21:04)
== END 2021-06-23 21:06 | disposition home or self-care (01) ==
PROVIDERS: Emergency Medicine; Emergency Provider Nurse Practitioner Family; PCP Family Medicine
DX: G47.00 Insomnia, unspecified (principal); F41.9 Anxiety disorder, unspecified; Z79.02 Long term (current) use of antithrombotics/antiplatelets; Z79.82 Long term (current) use of aspirin; I25.118 Atherosclerotic heart disease of native coronary artery with other forms of angina pectoris; J44.9 Chronic obstructive pulmonary disease, unspecified; E11.9 Type 2 diabetes mellitus without complications; E78.5 Hyperlipidemia, unspecified; I10 Essential (primary) hypertension; F17.210 Nicotine dependence, cigarettes, uncomplicated
CPT/HCPCS: 71045; 80053; 84484; 85025; 85610; 93005; 99283

== ENCOUNTER 2021-07-03 20:41 | Emergency (ER) | payer MEDICARE, MEDICAID, SELFPAY ==
[2021-05-07 14:34] VITALS: BP 146/84; BMI 43.9
[2021-07-03 21:14] VITALS: BP 143/87; PULSE 111; RESP 18; TEMP 36.6; O2SAT 97; BMI 42.9
--- NOTE | 2021-07-03 23:03 | W.ED.EXTPRO ---
HPI - Extremity Problem General: Chief complaint: Extremity Problem,Nontraumatic Stated complaint: RIGHT ARM/NECK PAIN X 3 WEEKS Time Seen by Provider: 07/03/21 22:43 History of Present Illness: Patient is a 66-year-old female who comes to the ED with right neck and right arm pain. Past medical history of arthritis, fibromyalgia, chronic pain syndrome. Symptoms have been going on now for over 2 months. Denies any injury or trauma wound to cause pain. Pain is rated a 10 out of 10. Says the pain starts in the right side of her neck and radiates down into her right shoulder. Any abduction with right arm causes pain. Associated symptoms: Deny chest pain, fever(s) or rash Review of Systems Const: Denies: fever(s), chills or fatigue Eyes: Denies: change in vision or eye discomfort ENMT: Denies: throat pain, odynophagia, nasal discharge or nasal congestion Card: Denies: chest pain, palpitations, edema, swelling of feet/ankles, dyspnea on exertion or orthopnea Resp: Denies: dyspnea, productive cough or non-productive cough GI: Denies: abdominal pain, nausea, vomiting, diarrhea, constipation or hematochezia : Denies: flank pain, dysuria or hematuria Musc: Reports: neck pain and extremity pain (right arm); Denies: back pain or extremity swelling Skin/Breast: Denies: rash or new lesions Neuro: Denies: headache(s), numbness in extremities or weakness in extremities PFS ED PFSH: Medical History Atypical chest pain Bipolar depression CAD (coronary artery disease) Chest pain Chronic headache Chronic pain syndrome Due to her weight and other comorbidities I do not think that there is much that pain management would be able to do. They can do localized injections or treatments on specific joints but she would never be a surgical candidate. Constipation, chronic COPD (chronic obstructive pulmonary disease) Diabetes mellitus type 2 in obese DM type 2 (diabetes mellitus, type 2) Fibromyalgia Generalized anxiety disorder GERD (gastroesophageal reflux disease) Hyperlipemia Hypertension, benign Insomnia Major depressive disorder, recurrent, moderate Mixed stress and urge urinary incontinence Nicotine dependence, cigarettes, with other nicotine-induced disorders NONA (obstructive sleep apnea) Uses CPAP Overactive bladder Panic disorder [episodic paroxysmal anxiety] Paroxysmal A-fib Paroxysmal atrial fibrillation (~08/2020) Paroxysmal SVT (supraventricular tachycardia) Peripheral Vascular Disease RLS (restless legs syndrome) Surgical History H/O thyroidectomy H/O: hysterectomy Hx of cholecystectomy S/P appendectomy Family History Mother , at age 75 Hypertension Father , at age 87 Hypertension Denies family history of Lung disease Stroke Social History Smoking and tobacco status: current every day smoker cigarettes Packs smoked per day: 1 Years cigarettes smoked: 44 Second hand smoke exposure: No Alcohol intake: never Adopted: No Caregiver/support person: No Lives independently: Yes Household members: none Housing: Apartment Marital status: / Number of children: 8 Number of grandchildren: 14 Highest education level completed: Some College, No Degree service: No Current occupational status: disabled Pets and animals: Yes Pets & animals: dog(s) History of recent travel: No Leisure activites: art, music, reading and other Sexually active: No Current gender identity: Female Lilliam/Hoahaoism: Protestant Special lilliam needs: No Agree to transfusion: Yes Financial difficulty paying for basics: Not Very Hard Female Reproductive History: Para: 8 Spontaneous abortions: No Physical Exam Const: COMMON NORMALS: no acute distress, patient oriented x3 and alert GENERAL APPEARANCE: cooperative and comfortable HENMT: COMMON NORMALS: normocephalic HEAD & SCALP: normocephalic MOUTH: Normal oral and palatal mucosa present THROAT: posterior oropharynx normal and uvula midline Neck/C-Spine: COMMON NORMALS: supple GENERAL: Yes normal visual inspection CERVICAL SPINE: Yes pain with cervical ROM, No Cervical spine tenderness, Yes Paracervical muscle tenderness right and Yes Trapezius muscle tenderness right Resp: COMMON NORMALS: normal respiratory effort, No retractions, No use of accessory muscles and clear to auscultation bilaterally AUSCULTATION: clear to auscultation bilaterally Cardio: COMMON NORMALS: regular rate, regular rhythm, S1 normal heart sound present, S2 normal heart sound present, No gallops present (Cardio), No clicks present (Cardio), No murmurs present (Cardio) and Peripheral pulses 2+ throughout RATE: regular rate RHYTHM: regular rhythm HEART SOUNDS: S1 normal heart sound present and S2 normal heart sound present PERIPHERAL PULSES: Peripheral pulses 2+ throughout GI: COMMON NORMALS: Normal to inspection, nondistended, normoactive bowel sounds present, Soft to palpation, non-tender and no masses PALPATION: Yes Soft to palpation : COMMON NORMALS: Yes no CVA tenderness BLADDER/KIDNEY EXAM: Yes no CVA tenderness Back/Pelvis: COMMON NORMALS: no CVA tenderness Extremity: COMMON NORMALS: normal to inspection NARRATIVE EXTREMITY EXAM: Patient endorsed having some pain in right shoulder with abduction of right arm. GENERAL: Yes normal exam except as noted Neuro: COMMON NORMALS: patient oriented x3 and moves all extremities SENSORIUM/ORIENTATION: Yes alert Skin: GENERAL SKIN EXAM: dry skin Course Vital Signs: Vital signs: Vital Signs Temperature 97.8 F 07/03/21 21:14 Pulse Rate 111 H 07/03/21 21:14 Respiratory Rate 18 07/03/21 21:14 Blood Pressure 143/87 07/03/21 21:14 Pulse Oximetry 97 07/03/21 21:14 MDM - Extremity (Nontraumatic) Medical Decision Making Patient is a 66-year-old female comes to the ED with chronic right sided neck and right arm pain. She has had this for months now. Denies any injury or trauma to cause pain. Pain starts at right-sided neck and radiates down into her right shoulder. Vitals are stable. Patient appears in no acute distress or pain. She has right sided neck tenderness along with right trapezius muscle tenderness. No cervical spine tenderness. She was given a dose of hydrocodone and Norflex while here in the ED and her symptoms improved. Patient diagnosed with neck and shoulder pain and discharged home with a prescription for muscle relaxer and pain medicine. She was told to follow-up with PCP in 7 to 10 days reevaluation. Return to ED precautions given. Patient stood agree with plan. Discharge Plan Discharge Patient Disposition: Home Clinical Impression: Neck and shoulder pain Condition: Stable Prescriptions: New methocarbamol 750 mg tablet 750 mg PO Q8H PRN (Reason: muscle spasm) Qty: 20 0RF No Action albuterol sulfate [Ventolin HFA] 90 mcg/actuation HFA aerosol inhaler 2 puff INHALATION Q6H PRN (Reason: shortness of breath or wheezing) Qty: 8.5 5RF melatonin 5 mg capsule 10 mg PO BEDTIME PRN (Reason: insomnia) 0RF oxybutynin chloride 15 mg tablet extended release 24 hr 15 mg PO DAILY 90 Days Qty: 90 1RF apixaban 5 mg tablet 5 mg PO BID 30 Days Qty: 60 5RF (DME) Blood Glucose Test Strip See Rx Instructions .ROUTE .MEDSUPPLY Qty: 50 11RF Rx Instructions: Brand/type to go with meter per insurance coverage (DME) miscellaneous medical supply Misc See Rx Instructions .Route Qty: 1 0RF Rx Instructions: use 1-2l at night cholecalciferol (vitamin D3) 1,250 mcg (50,000 unit) capsule 50,000 unit PO .Weekly 60 Days Qty: 10 0RF Rx Instructions: ON MONDAYS Jardiance 25 mg tablet 25 mg PO DAILY Qty: 90 3RF Rx Instructions: Take one tablet by mouth daily. diltiazem HCl 120 mg capsule,extended release 12 hr 120 mg PO BID Qty: 60 3RF cyclobenzaprine 5 mg tablet See Rx Instructions .ROUTE .COMPLEX Qty: 120 2RF Dose Instruction: TAKE ONE TABLET BY MOUTH EVERY MORNING 1 TABLET BY MOUTH IN THE AFTERNOON AND TAKE 2 TABLETS BY MOUTH DAILY AT BEDTIME Rx Instructions: TAKE ONE TABLET BY MOUTH EVERY MORNING 1 TABLET BY MOUTH IN THE AFTERNOON AND TAKE 2 TABLETS BY MOUTH DAILY AT BEDTIME clopidogrel 75 mg tablet 75 mg PO DAILY 0RF nitroglycerin 0.4 mg tablet, sublingual 0.4 mg SUBLINGUAL Q5M PRN (Reason: Chest Pain) Qty: 30 2RF diclofenac sodium 50 mg tablet,delayed release (DR/EC) 50 mg PO BID PRN (Reason: pain) 30 Days Qty: 60 2RF Rx Instructions: WITH FOOD pramipexole 0.25 mg tablet See Rx Instructions .ROUTE .COMPLEX Qty: 30 3RF Dose Instruction: TAKE ONE TABLET BY MOUTH DAILY AT BEDTIME Rx Instructions: TAKE ONE TABLET BY MOUTH DAILY AT BEDTIME naproxen sodium 220 mg tablet 440 mg PO .at bedtime 0RF duloxetine 60 mg capsule,delayed release(DR/EC) 60 mg PO DAILY Qty: 30 0RF duloxetine 30 mg capsule,delayed release(DR/EC) 30 mg PO DAILY Qty: 30 1RF Rx Instructions: in addition to 60mg daily furosemide 40 mg tablet See Rx Instructions .ROUTE .COMPLEX Qty: 180 1RF Dose Instruction: TAKE ONE TABLET BY MOUTH TWICE A DAY FOR 90 DAYS Rx Instructions: TAKE ONE TABLET BY MOUTH TWICE A DAY FOR 90 DAYS docusate sodium 100 mg capsule 200 mg PO BID 30 Days Qty: 120 2RF (DME) Depend Underwear For Women XL Misc See Rx Instructions .Route Qty: 360 11RF Rx Instructions: As directed, 12 daily suvorexant 15 mg tablet 15 mg PO BEDTIME Qty: 30 0RF buspirone 10 mg tablet See Rx Instructions .ROUTE .COMPLEX Qty: 90 3RF Dose Instruction: TAKE 1 AND 1/2 TABLETS BY MOUTH TWICE A DAY Rx Instructions: TAKE 1 AND 1/2 TABLETS BY MOUTH TWICE A DAY aspirin [Adult Aspirin Regimen] 81 mg tablet,delayed release (DR/EC) 81 mg PO DAILY@0800 0RF loratadine 10 mg tablet 10 mg PO BEDTIME@2000 PRN (Reason: allergy symptoms) 0RF multivitamin Tablet 1 tab PO DAILY Qty: 0 0RF ascorbic acid (vitamin C) [Vitamin C] 1,000 mg Tablet 1,000 mg PO DAILY Qty: 0 0RF Wellbutrin XL 300 mg Tablet Extended Release 24 Hr 300 mg PO QAM 0RF isosorbide mononitrate 30 mg tablet extended release 24 hr 30 mg PO DAILY 0RF potassium chloride 20 mEq tablet,ER particles/crystals 20 meq PO BID 0RF famotidine 20 mg tablet 20 mg PO BID 0RF metoprolol tartrate 100 mg tablet 150 mg PO Q12H 30 Days Qty: 60 5RF Discharge Orders: Discharge ED (Routine); Ordered 07/03/21 Ordered By: Jamie Broderick Referrals: Kristine Rodriguez MD [Primary Care Provider] - Discharge Diet: Regular Discharge Activity: Increase activity as tolerated Patient Instructions: Neck Pain (ED), Opioid Safety Activity Restrictions/Additional Instructions: Follow-up with medical provider as directed and 7 to 10 days for reevaluation. Take medications as prescribed. Methocarbamol is a muscle relaxer and can cause some drowsiness so take at night before going to bed. Return to the ER or your medical provider if condition worsens. Please read and understand discharge instructions. Thank you for choosing [facility] for your healthcare needs today. Please realize this is an emergency room and that we are providing you with a medical screening exam and this may not be complete and all inclusive of all the testing and or work up that you may need to determine your ailment or severity of your illness. It is very important that you follow up as instructed or that you return to the Emergency Department should you have concerns or if your condition changes or worsens in any way. Coding Level of Care Code ED [employer] for [employer] Exam Comprehensive
[2021-07-03] MEDS: HYDROcodone-acetaminophen 5-325 mg Tablet 1 TAB PO (23:20)
[2021-07-03] MEDS: orphenadrine 30 mg/mL Inj 2 mL 60 MG IM (23:21)
== END 2021-07-04 01:19 | disposition home or self-care (01) ==
PROVIDERS: Emergency Provider Physician Assistant; PCP Family Medicine
DX: M54.2 Cervicalgia (principal); M25.511 Pain in right shoulder; Z79.82 Long term (current) use of aspirin; Z79.02 Long term (current) use of antithrombotics/antiplatelets; I25.10 Atherosclerotic heart disease of native coronary artery without angina pectoris; J44.9 Chronic obstructive pulmonary disease, unspecified; E11.9 Type 2 diabetes mellitus without complications; E78.5 Hyperlipidemia, unspecified; I10 Essential (primary) hypertension; F17.210 Nicotine dependence, cigarettes, uncomplicated
CPT/HCPCS: 96372; 99283; J2360

== ENCOUNTER 2021-07-04 05:20 | Emergency (ER) | payer MEDICARE, MEDICAID, SELFPAY ==
[2021-05-07 14:34] VITALS: BP 146/84; BMI 43.9
[2021-07-04 05:23] VITALS: BP 133/103; PULSE 82; RESP 16; TEMP 36.4; O2SAT 96; BMI 42.9
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
[2021-07-04] MEDS: LORazepam 1 mg Tablet PO (06:01)
== END 2021-07-04 06:07 | disposition home or self-care (01) ==
PROVIDERS: Emergency Provider Emergency Medicine; PCP Family Medicine
DX: F41.0 Panic disorder [episodic paroxysmal anxiety] (principal); Z79.02 Long term (current) use of antithrombotics/antiplatelets; Z79.82 Long term (current) use of aspirin; I25.10 Atherosclerotic heart disease of native coronary artery without angina pectoris; J44.9 Chronic obstructive pulmonary disease, unspecified; E11.9 Type 2 diabetes mellitus without complications; E78.5 Hyperlipidemia, unspecified; I10 Essential (primary) hypertension; F17.210 Nicotine dependence, cigarettes, uncomplicated
CPT/HCPCS: 99283

== ENCOUNTER → 2021-07-09 15:37 | Outpatient (BNVA) | payer MEDICARE, MEDICAID, SELFPAY ==
[2021-05-07 14:34] VITALS: BP 146/84; BMI 43.9
== END ==
PROVIDERS: PCP Family Medicine; Visit Provider Family Medicine
DX: G89.4 Chronic pain syndrome (principal); M79.7 Fibromyalgia; M54.2 Cervicalgia; M54.9 Dorsalgia, unspecified
CPT/HCPCS: 72040; 72072; 73030

== ENCOUNTER 2021-07-24 21:39 | Emergency (ER) | payer MEDICARE, MEDICAID, SELFPAY ==
[2021-05-07 14:34] VITALS: BP 146/84; BMI 43.9
[2021-07-24 22:02] VITALS: BP 160/82; PULSE 100; RESP 22; TEMP 37.2; O2SAT 95
--- NOTE | 2021-07-25 00:14 | W.ED.NECK ---
Documented by User: JEROME Arreola 07/25/21 00:31 HPI - Neck Pain/Injury General: Chief Complaint: Neck Pain/Injury Stated Complaint: sob Time Seen by Provider: 07/25/21 00:14 History of Present Illness: 66-year-old female comes in today with neck discomfort. Patient also makes some complaint of sinus pressure and with cough and congestion. Patient reports that she had a concussion from hitting her head and since then her next been hurting her for the last 2 months. Patient was seen in the primary care clinic office and was treated with steroid injection for her neck discomfort. Patient comes in tonight due to pain in her neck and wanting something to help with her pain. Patient appears nontoxic. Patient appears in mild to moderate pain. Review of Systems General: Reports: 10 or more systems reviewed and unremarkable except in HPI and below Const: Denies: fever(s) ENMT: Reports: nasal congestion Card: Denies: chest pain Resp: Reports: non-productive cough; Denies: dyspnea Musc: Reports: neck pain Skin/Breast: Denies: rash PFSH ED PFSH: Medical History Atypical chest pain Bipolar depression CAD (coronary artery disease) Chest pain Chronic headache Chronic pain syndrome Due to her weight and other comorbidities I do not think that there is much that pain management would be able to do. They can do localized injections or treatments on specific joints but she would never be a surgical candidate. Constipation, chronic COPD (chronic obstructive pulmonary disease) Diabetes mellitus type 2 in obese DM type 2 (diabetes mellitus, type 2) Fibromyalgia Generalized anxiety disorder GERD (gastroesophageal reflux disease) Hyperlipemia Hypertension, benign Insomnia Major depressive disorder, recurrent, moderate Mixed stress and urge urinary incontinence Nicotine dependence, cigarettes, with other nicotine-induced disorders NONA (obstructive sleep apnea) Uses CPAP Overactive bladder Panic disorder [episodic paroxysmal anxiety] Paroxysmal A-fib Paroxysmal atrial fibrillation (~08/2020) Paroxysmal SVT (supraventricular tachycardia) Peripheral Vascular Disease RLS (restless legs syndrome) Surgical History H/O thyroidectomy H/O: hysterectomy Hx of cholecystectomy S/P appendectomy Family History Mother , at age 75 Hypertension Father , at age 87 Hypertension Denies family history of Lung disease Stroke Social History Smoking and tobacco status: current every day smoker cigarettes Packs smoked per day: 1 Years cigarettes smoked: 44 Second hand smoke exposure: No Alcohol intake: never Adopted: No Caregiver/support person: No Lives independently: Yes Household members: none Housing: Apartment Marital status: / Number of children: 8 Number of grandchildren: 14 Highest education level completed: Some College, No Degree service: No Current occupational status: disabled Pets and animals: Yes Pets & animals: dog(s) History of recent travel: No Leisure activites: art, music, reading and other Sexually active: No Current gender identity: Female Lilliam/Zoroastrian: [employer] Special lilliam needs: No Agree to transfusion: Yes Financial difficulty paying for basics: Not Very Hard Female Reproductive History: Para: 8 Spontaneous abortions: No Physical Exam Const: COMMON NORMALS: alert HENMT: COMMON NORMALS: normocephalic HEAD & SCALP: normocephalic FACE & SINUS: sinus tenderness NOSE: Nasal discharge present MOUTH: Normal oral and palatal mucosa present THROAT: posterior oropharynx abnormal (Mucopurulent sinus drainage) Neck/C-Spine: COMMON NORMALS: full ROM CERVICAL SPINE: No Cervical spine tenderness and Yes Paracervical muscle tenderness Resp: COMMON NORMALS: normal respiratory effort and clear to auscultation bilaterally AUSCULTATION: clear to auscultation bilaterally Cardio: COMMON NORMALS: regular rate and regular rhythm RATE: regular rate RHYTHM: regular rhythm GI: COMMON NORMALS: non-tender Extremity: GENERAL: Yes edema (Bilateral lower extremities) Neuro: SENSORIUM/ORIENTATION: Yes alert Skin: RASHES: rashes noted (bilateral lower extremity erythema) Course Vital Signs: Vital signs: Vital Signs Temperature 99.0 F 07/24/21 22:02 Pulse Rate 104 H 07/25/21 00:21 Respiratory Rate 20 H 07/25/21 00:21 Blood Pressure 122/85 07/25/21 00:21 Pulse Oximetry 96 07/25/21 00:21 MDM - Neck Pain/Injury Medical Decision Making 66-year-old female comes in today with complaints of neck discomfort and pain. On exam patient has some reproducible pain to the neck on palpation of muscles increased on the right versus the left. No midline tenderness was noted. Normal range of motion is noted. Patient has some nasal congestion and posterior pharynx has some mucopurulent drainage. Patient does have some chronic edema to bilateral lower extremities. Differential diagnosis includes but not limited to cervical radiculopathy, intervertebral disc disease, facet arthritis. Most likely patient has some intervertebral disc disease which is flared. Recommend that she continue her routine medications and treatment. We will give her a short course of hydrocodone acetaminophen 10 tablets to take every 8 hours for the next 2 to 3 days to help of her pain control. Also I believe patient probably has a sinus infection we will treat with doxycycline 1 tablet twice a day for the next 7 days. Encourage fluids rest and follow-up or return to the ER for worsening symptoms. Discharge Plan Discharge Patient Disposition: Home Clinical Impression: Cervical radiculopathy, Acute rhinosinusitis Condition: Stable Prescriptions: New doxycycline monohydrate 100 mg capsule 100 mg PO BID 7 Days Qty: 14 0RF hydrocodone-acetaminophen 5-325 mg tablet 1 tab PO Q8H PRN (Reason: pain, severe) Qty: 10 0RF No Action albuterol sulfate [Ventolin HFA] 90 mcg/actuation HFA aerosol inhaler 2 puff INHALATION Q6H PRN (Reason: shortness of breath or wheezing) Qty: 8.5 5RF melatonin 5 mg capsule 10 mg PO BEDTIME PRN (Reason: insomnia) 0RF oxybutynin chloride 15 mg tablet extended release 24 hr 15 mg PO DAILY 90 Days Qty: 90 1RF apixaban 5 mg tablet 5 mg PO BID 30 Days Qty: 60 5RF (DME) Blood Glucose Test Strip See Rx Instructions .ROUTE .MEDSUPPLY Qty: 50 11RF Rx Instructions: Brand/type to go with meter per insurance coverage (DME) miscellaneous medical supply Misc See Rx Instructions .Route Qty: 1 0RF Rx Instructions: use 1-2l at night cholecalciferol (vitamin D3) 1,250 mcg (50,000 unit) capsule 50,000 unit PO .Weekly 60 Days Qty: 10 0RF Rx Instructions: ON MONDAYS Jardiance 25 mg tablet 25 mg PO DAILY Qty: 90 3RF Rx Instructions: Take one tablet by mouth daily. diltiazem HCl 120 mg capsule,extended release 12 hr 120 mg PO BID Qty: 60 3RF cyclobenzaprine 5 mg tablet See Rx Instructions .ROUTE .COMPLEX Qty: 120 2RF Dose Instruction: TAKE ONE TABLET BY MOUTH EVERY MORNING 1 TABLET BY MOUTH IN THE AFTERNOON AND TAKE 2 TABLETS BY MOUTH DAILY AT BEDTIME Rx Instructions: TAKE ONE TABLET BY MOUTH EVERY MORNING 1 TABLET BY MOUTH IN THE AFTERNOON AND TAKE 2 TABLETS BY MOUTH DAILY AT BEDTIME risperidone 0.5 mg tablet 0.5 mg PO BID Qty: 60 1RF suvorexant 20 mg tablet 20 mg PO BEDTIME Qty: 30 0RF pregabalin 75 mg capsule 75 mg PO BID 30 Days Qty: 60 2RF methocarbamol 750 mg tablet 750 mg PO BID PRN (Reason: muscle spasm) 30 Days Qty: 60 2RF nitroglycerin 0.4 mg tablet, sublingual 0.4 mg SUBLINGUAL Q5M PRN (Reason: Chest Pain) Qty: 30 2RF diclofenac sodium 50 mg tablet,delayed release (DR/EC) 50 mg PO BID PRN (Reason: pain) 30 Days Qty: 60 2RF Rx Instructions: WITH FOOD naproxen sodium 220 mg tablet 440 mg PO .at bedtime 0RF duloxetine 30 mg capsule,delayed release(DR/EC) 30 mg PO DAILY Qty: 30 1RF Rx Instructions: in addition to 60mg daily (DME) Depend Underwear For Women XL Misc See Rx Instructions .Route Qty: 360 11RF Rx Instructions: As directed, 12 daily buspirone 10 mg tablet See Rx Instructions .ROUTE .COMPLEX Qty: 90 3RF Dose Instruction: TAKE 1 AND 1/2 TABLETS BY MOUTH TWICE A DAY Rx Instructions: TAKE 1 AND 1/2 TABLETS BY MOUTH TWICE A DAY clopidogrel 75 mg tablet See Rx Instructions .ROUTE .COMPLEX Qty: 90 1RF Dose Instruction: TAKE ONE TABLET BY MOUTH EVERY DAY Rx Instructions: TAKE ONE TABLET BY MOUTH EVERY DAY docusate sodium 100 mg capsule See Rx Instructions .ROUTE .COMPLEX Qty: 60 0RF Dose Instruction: TAKE TWO CAPSULES BY MOUTH TWICE A DAY FOR 30 DAYS Rx Instructions: TAKE TWO CAPSULES BY MOUTH TWICE A DAY FOR 30 DAYS potassium chloride 20 mEq tablet,ER particles/crystals See Rx Instructions .ROUTE .COMPLEX Qty: 180 0RF Dose Instruction: TAKE ONE TABLET BY MOUTH TWICE A DAY FOR 90 DAYS Rx Instructions: TAKE ONE TABLET BY MOUTH TWICE A DAY FOR 90 DAYS furosemide 40 mg tablet See Rx Instructions .ROUTE .COMPLEX Qty: 180 0RF Dose Instruction: TAKE ONE TABLET BY MOUTH TWICE A DAY FOR 90 DAYS Rx Instructions: TAKE ONE TABLET BY MOUTH TWICE A DAY FOR 90 DAYS duloxetine 60 mg capsule,delayed release(DR/EC) 60 mg PO DAILY Qty: 30 2RF pramipexole 0.25 mg tablet See Rx Instructions .ROUTE .COMPLEX Qty: 30 2RF Dose Instruction: TAKE ONE TABLET BY MOUTH DAILY AT BEDTIME Rx Instructions: TAKE ONE TABLET BY MOUTH DAILY AT BEDTIME miscellaneous medical supply Misc 1 ea miscellaneous ONCE Qty: 1 0RF Rx Instructions: Patient requests wheelchair repair aspirin [Adult Aspirin Regimen] 81 mg tablet,delayed release (DR/EC) 81 mg PO DAILY@0800 0RF loratadine 10 mg tablet 10 mg PO BEDTIME@2000 PRN (Reason: allergy symptoms) 0RF multivitamin Tablet 1 tab PO DAILY Qty: 0 0RF ascorbic acid (vitamin C) [Vitamin C] 1,000 mg Tablet 1,000 mg PO DAILY Qty: 0 0RF Wellbutrin XL 300 mg Tablet Extended Release 24 Hr 300 mg PO QAM 0RF isosorbide mononitrate 30 mg tablet extended release 24 hr 30 mg PO DAILY 0RF famotidine 20 mg tablet 20 mg PO BID 0RF metoprolol tartrate 100 mg tablet 150 mg PO Q12H 30 Days Qty: 60 5RF Discharge Orders: Discharge ED (Routine); Ordered 07/25/21 Ordered By: Tushar Mcnair Referrals: Kristine Rodriguez MD [Primary Care Provider] - Discharge Diet: Usual diet Patient Instructions: Neck Pain (ED), Opioid Safety Activity Restrictions/Additional Instructions: Drink plenty of fluids less restricted by your physician. Take antibiotic with a whole glass of water twice a day. Continue with routine medications as directed. Use acetaminophen to help control pain. Use hydrocodone for severe pain. Follow-up with primary care in 1 week for recheck. Return to ER for new concerns or worsening symptoms. Coding Level of Care Code ED [employer] for [employer] Fwd Exam Comprehensive Documented by User: Nils Glynn, 07/25/21 01:27 HPI - Neck Pain/Injury General: Chief Complaint: Neck Pain/Injury Stated Complaint: sob Time Seen by Provider: 07/25/21 00:14 [facility] ED PFSH: Medical History Atypical chest pain Bipolar depression CAD (coronary artery disease) Chest pain Chronic headache Chronic pain syndrome Due to her weight and other comorbidities I do not think that there is much that pain management would be able to do. They can do localized injections or treatments on specific joints but she would never be a surgical candidate. Constipation, chronic COPD (chronic obstructive pulmonary disease) Diabetes mellitus type 2 in obese DM type 2 (diabetes mellitus, type 2) Fibromyalgia Generalized anxiety disorder GERD (gastroesophageal reflux disease) Hyperlipemia Hypertension, benign Insomnia Major depressive disorder, recurrent, moderate Mixed stress and urge urinary incontinence Nicotine dependence, cigarettes, with other nicotine-induced disorders NONA (obstructive sleep apnea) Uses CPAP Overactive bladder Panic disorder [episodic paroxysmal anxiety] Paroxysmal A-fib Paroxysmal atrial fibrillation (~08/2020) Paroxysmal SVT (supraventricular tachycardia) Peripheral Vascular Disease RLS (restless legs syndrome) Surgical History H/O thyroidectomy H/O: hysterectomy Hx of cholecystectomy S/P appendectomy Family History Mother , at age 75 Hypertension Father , at age 87 Hypertension Denies family history of Lung disease Stroke Social History Smoking and tobacco status: current every day smoker cigarettes Packs smoked per day: 1 Years cigarettes smoked: 44 Second hand smoke exposure: No Alcohol intake: never Adopted: No Caregiver/support person: No Lives independently: Yes Household members: none Housing: Apartment Marital status: / Number of children: 8 Number of grandchildren: 14 Highest education level completed: Some College, No Degree service: No Current occupational status: disabled Pets and animals: Yes Pets & animals: dog(s) History of recent travel: No Leisure activites: art, music, reading and other Sexually active: No Current gender identity: Female Lilliam/Zoroastrian: [employer] lilliam needs: No Agree to transfusion: Yes Financial difficulty paying for basics: Not Very Hard Course Vital Signs: Vital signs: Vital Signs Temperature 99.0 F 07/24/21 22:02 Pulse Rate 104 H 07/25/21 00:21 Respiratory Rate 20 H 07/25/21 00:21 Blood Pressure 122/85 07/25/21 00:21 Pulse Oximetry 96 07/25/21 00:21 MDM - Neck Pain/Injury Medical Decision Making 66-year-old female comes in today with complaints of neck discomfort and pain. On exam patient has some reproducible pain to the neck on palpation of muscles increased on the right versus the left. No midline tenderness was noted. Normal range of motion is noted. Patient has some nasal congestion and posterior pharynx has some mucopurulent drainage. Patient does have some chronic edema to bilateral lower extremities. Differential diagnosis includes but not limited to cervical radiculopathy, intervertebral disc disease, facet arthritis. Most likely patient has some intervertebral disc disease which is flared. Recommend that she continue her routine medications and treatment. We will give her a short course of hydrocodone acetaminophen 10 tablets to take every 8 hours for the next 2 to 3 days to help of her pain control. Also I believe patient probably has a sinus infection we will treat with doxycycline 1 tablet twice a day for the next 7 days. Encourage fluids rest and follow-up or return to the ER for worsening symptoms. This patient was originally seen by JEROME Aragon.? I agree with his history, evaluation, and treatment. Discharge Plan Discharge Patient Disposition: Home Clinical Impression: Cervical radiculopathy, Acute rhinosinusitis Condition: Stable Prescriptions: New doxycycline monohydrate 100 mg capsule 100 mg PO BID 7 Days Qty: 14 0RF hydrocodone-acetaminophen 5-325 mg tablet 1 tab PO Q8H PRN (Reason: pain, severe) Qty: 10 0RF No Action albuterol sulfate [Ventolin HFA] 90 mcg/actuation HFA aerosol inhaler 2 puff INHALATION Q6H PRN (Reason: shortness of breath or wheezing) Qty: 8.5 5RF melatonin 5 mg capsule 10 mg PO BEDTIME PRN (Reason: insomnia) 0RF oxybutynin chloride 15 mg tablet extended release 24 hr 15 mg PO DAILY 90 Days Qty: 90 1RF apixaban 5 mg tablet 5 mg PO BID 30 Days Qty: 60 5RF (DME) Blood Glucose Test Strip See Rx Instructions .ROUTE .MEDSUPPLY Qty: 50 11RF Rx Instructions: Brand/type to go with meter per insurance coverage (DME) [place] medical [place] [facility] [place] .[place] Qty: 1 0RF Rx Instructions: use 1-2l at night cholecalciferol (vitamin D3) 1,250 mcg (50,000 unit) capsule 50,000 unit PO .Weekly 60 Days Qty: 10 0RF Rx Instructions: ON MONDAYS Jardiance 25 mg tablet 25 mg PO DAILY Qty: 90 3RF Rx Instructions: Take one tablet by mouth daily. diltiazem HCl 120 mg capsule,extended release 12 hr 120 mg PO BID Qty: 60 3RF cyclobenzaprine 5 mg tablet See Rx Instructions .ROUTE .COMPLEX Qty: 120 2RF Dose Instruction: TAKE ONE TABLET BY MOUTH EVERY MORNING 1 TABLET BY MOUTH IN THE AFTERNOON AND TAKE 2 TABLETS BY MOUTH DAILY AT BEDTIME Rx Instructions: TAKE ONE TABLET BY MOUTH EVERY MORNING 1 TABLET BY MOUTH IN THE AFTERNOON AND TAKE 2 TABLETS BY MOUTH DAILY AT BEDTIME risperidone 0.5 mg tablet 0.5 mg PO BID Qty: 60 1RF suvorexant 20 mg tablet 20 mg PO BEDTIME Qty: 30 0RF pregabalin 75 mg capsule 75 mg PO BID 30 Days Qty: 60 2RF methocarbamol 750 mg tablet 750 mg PO BID PRN (Reason: muscle spasm) 30 Days Qty: 60 2RF nitroglycerin 0.4 mg tablet, sublingual 0.4 mg SUBLINGUAL Q5M PRN (Reason: Chest Pain) Qty: 30 2RF diclofenac sodium 50 mg tablet,delayed release (DR/EC) 50 mg PO BID PRN (Reason: pain) 30 Days Qty: 60 2RF Rx Instructions: WITH FOOD naproxen sodium 220 mg tablet 440 mg PO .at bedtime 0RF duloxetine 30 mg capsule,delayed release(DR/EC) 30 mg PO DAILY Qty: 30 1RF Rx Instructions: in addition to 60mg daily (DME) Depend Underwear For Women [place] [facility] [place] Instructions .Route Qty: 360 11RF Rx Instructions: As directed, 12 daily buspirone 10 mg tablet See Rx Instructions .ROUTE .COMPLEX Qty: 90 3RF Dose Instruction: TAKE 1 AND 1/2 TABLETS BY MOUTH TWICE A DAY Rx Instructions: TAKE 1 AND 1/2 TABLETS BY MOUTH TWICE A DAY clopidogrel 75 mg tablet See Rx Instructions .ROUTE .COMPLEX Qty: 90 1RF Dose Instruction: TAKE ONE TABLET BY MOUTH EVERY DAY Rx Instructions: TAKE ONE TABLET BY MOUTH EVERY DAY docusate sodium 100 mg capsule See Rx Instructions .ROUTE .COMPLEX Qty: 60 0RF Dose Instruction: TAKE TWO CAPSULES BY MOUTH TWICE A DAY FOR 30 DAYS Rx Instructions: TAKE TWO CAPSULES BY MOUTH TWICE A DAY FOR 30 DAYS potassium chloride 20 mEq tablet,ER particles/crystals See Rx Instructions .ROUTE .COMPLEX Qty: 180 0RF Dose Instruction: TAKE ONE TABLET BY MOUTH TWICE A DAY FOR 90 DAYS Rx Instructions: TAKE ONE TABLET BY MOUTH TWICE A DAY FOR 90 DAYS furosemide 40 mg tablet See Rx Instructions .ROUTE .COMPLEX Qty: 180 0RF Dose Instruction: TAKE ONE TABLET BY MOUTH TWICE A DAY FOR 90 DAYS Rx Instructions: TAKE ONE TABLET BY MOUTH TWICE A DAY FOR 90 DAYS duloxetine 60 mg capsule,delayed release(DR/EC) 60 mg PO DAILY Qty: 30 2RF pramipexole 0.25 mg tablet See Rx Instructions .ROUTE .COMPLEX Qty: 30 2RF Dose Instruction: TAKE ONE TABLET BY MOUTH DAILY AT BEDTIME Rx Instructions: TAKE ONE TABLET BY MOUTH DAILY AT BEDTIME miscellaneous medical supply Misc 1 ea miscellaneous ONCE Qty: 1 0RF Rx Instructions: Patient requests wheelchair repair aspirin [Adult Aspirin Regimen] 81 mg tablet,delayed release (DR/EC) 81 mg PO DAILY@0800 0RF loratadine 10 mg tablet 10 mg PO BEDTIME@2000 PRN (Reason: allergy symptoms) 0RF multivitamin Tablet 1 tab PO DAILY Qty: 0 0RF ascorbic acid (vitamin C) [Vitamin C] 1,000 mg Tablet 1,000 mg PO DAILY Qty: 0 0RF Wellbutrin XL 300 mg Tablet Extended Release 24 Hr 300 mg PO QAM 0RF isosorbide mononitrate 30 mg tablet extended release 24 hr 30 mg PO DAILY 0RF famotidine 20 mg tablet 20 mg PO BID 0RF metoprolol tartrate 100 mg tablet 150 mg PO Q12H 30 Days Qty: 60 5RF Discharge Orders: Discharge ED (Routine); Ordered 07/25/21 Ordered By: Tushar Mcnair Referrals: Kristine Rodriguez MD [Primary Care Provider] - Discharge Diet: Usual diet Patient Instructions: Neck Pain (ED), Opioid Safety Activity Restrictions/Additional Instructions: Drink plenty of fluids less restricted by your physician. Take antibiotic with a whole glass of water twice a day. Continue with routine medications as directed. Use acetaminophen to help control pain. Use hydrocodone for severe pain. Follow-up with primary care in 1 week for recheck. Return to ER for new concerns or worsening symptoms. Coding Level of Care Code ED [employer] for [employer] Fwd Exam Comprehensive
[2021-07-25 00:21] VITALS: BP 122/85; PULSE 104; RESP 20; O2SAT 96
[2021-07-25] MEDS: doxycycline 100 mg Tablet PO (00:27)
[2021-07-25] MEDS: HYDROcodone-acetaminophen 5-325 mg Tablet 1 TAB PO (00:27)
== END 2021-07-25 00:30 | disposition home or self-care (01) ==
PROVIDERS: Emergency Provider Nurse Practitioner Family; PCP Family Medicine
DX: J01.90 Acute sinusitis, unspecified (principal); M54.12 Radiculopathy, cervical region; Z79.82 Long term (current) use of aspirin; Z79.02 Long term (current) use of antithrombotics/antiplatelets; I25.10 Atherosclerotic heart disease of native coronary artery without angina pectoris; J44.9 Chronic obstructive pulmonary disease, unspecified; E11.9 Type 2 diabetes mellitus without complications; E78.5 Hyperlipidemia, unspecified; I10 Essential (primary) hypertension; F17.210 Nicotine dependence, cigarettes, uncomplicated
CPT/HCPCS: 99283

== ENCOUNTER → 2021-08-27 09:56 | Outpatient (BNVA) | payer MEDICARE, MEDICAID, SELFPAY ==
[2021-08-26 17:10] VITALS: BP 146/84; BMI 43.9
== END ==
PROVIDERS: PCP Family Medicine; Visit Provider Family Medicine
DX: I48.0 Paroxysmal atrial fibrillation (principal); E11.69 Type 2 diabetes mellitus with other specified complication; E66.9 Obesity, unspecified; E11.9 Type 2 diabetes mellitus without complications; I10 Essential (primary) hypertension; F33.1 Major depressive disorder, recurrent, moderate; M79.7 Fibromyalgia; Z09 Encounter for follow-up examination after completed treatment for conditions other than malignant neoplasm
CPT/HCPCS: 80048; 83036

== ENCOUNTER → 2021-10-14 00:01 | Outpatient (BNVA) | payer MEDICARE, MEDICAID, SELFPAY ==
[2021-08-26 17:10] VITALS: BP 146/84; BMI 43.9
== END ==
PROVIDERS: PCP Family Medicine; Visit Provider Family Medicine
DX: R31.9 Hematuria, unspecified (principal); I48.0 Paroxysmal atrial fibrillation; Z79.01 Long term (current) use of anticoagulants; J44.9 Chronic obstructive pulmonary disease, unspecified; E11.69 Type 2 diabetes mellitus with other specified complication; E66.9 Obesity, unspecified; M54.2 Cervicalgia; M25.519 Pain in unspecified shoulder; N39.46 Mixed incontinence; G89.4 Chronic pain syndrome; M19.90 Unspecified osteoarthritis, unspecified site; M79.7 Fibromyalgia; R60.0 Localized edema; G47.00 Insomnia, unspecified; R35.0 Frequency of micturition; L97.911 Non-pressure chronic ulcer of unspecified part of right lower leg limited to breakdown of skin
CPT/HCPCS: 81000; 87077; 87086; 87184

== ENCOUNTER 2021-10-16 20:42 | Emergency (ER) | payer MEDICARE, MEDICAID, SELFPAY ==
[2021-08-26 17:10] VITALS: BP 146/84; BMI 43.9
[2021-10-16 20:45] VITALS: BP 139/72; PULSE 89; RESP 19; TEMP 37; O2SAT 95; BMI 44.6
--- NOTE | 2021-10-16 21:22 | W.ED.GENADLT ---
HPI - General Adult General: Chief complaint: General Medical Stated complaint: HIGH BLOOD SUGAR Time Seen by Provider: 10/16/21 20:59 History of Present Illness: 66-year-old female comes in today with complaints of weakness, shortness of breath, and not feeling well. Patient did not know if it was due to her getting out in the heat to walk her dog. Patient's blood sugar was elevated at home above 400 which made her become more concerned and she came to the ER for evaluation. Patient appears nontoxic. Patient appears in no pain. Associated symptoms: Reports dyspnea and malaise Review of Systems General: Reports: 10 or more systems reviewed and unremarkable except in HPI and below Const: Reports: malaise Resp: Reports: dyspnea PFSH ED PFSH: Medical History Atypical chest pain Bipolar depression CAD (coronary artery disease) Chest pain Chronic headache Chronic pain syndrome Due to her weight and other comorbidities I do not think that there is much that pain management would be able to do. They can do localized injections or treatments on specific joints but she would never be a surgical candidate. Constipation, chronic COPD (chronic obstructive pulmonary disease) Diabetes mellitus type 2 in obese DM type 2 (diabetes mellitus, type 2) Fibromyalgia Generalized anxiety disorder GERD (gastroesophageal reflux disease) Hyperlipemia Hypertension, benign Insomnia Major depressive disorder, recurrent, moderate Mixed stress and urge urinary incontinence Nicotine dependence, cigarettes, with other nicotine-induced disorders NONA (obstructive sleep apnea) Uses CPAP Overactive bladder Panic disorder [episodic paroxysmal anxiety] Paroxysmal A-fib Paroxysmal atrial fibrillation (~08/2020) Paroxysmal SVT (supraventricular tachycardia) Peripheral Vascular Disease RLS (restless legs syndrome) Surgical History H/O thyroidectomy H/O: hysterectomy Hx of cholecystectomy S/P appendectomy Family History Mother , at age 75 Hypertension Father , at age 87 Hypertension Denies family history of Lung disease Stroke Social History Smoking and tobacco status: current every day smoker (1/2 PPD) cigarettes Packs smoked per day: 1 Years cigarettes smoked: 44 Second hand smoke exposure: No Alcohol intake: never Adopted: No Caregiver/support person: No Lives independently: Yes Household members: none Housing: Apartment Marital status: / Number of children: 8 Number of grandchildren: 14 Highest education level completed: Some College, No Degree service: No Current occupational status: disabled Pets and animals: Yes Pets & animals: dog(s) History of recent travel: No Leisure activites: art, music, reading and other Sexually active: No Current gender identity: Female Lilliam/Religious: Nondenominational Special lilliam needs: No Agree to transfusion: Yes Financial difficulty paying for basics: Not Very Hard Female Reproductive History: Para: 8 Spontaneous abortions: No Physical Exam Const: COMMON NORMALS: alert HENMT: COMMON NORMALS: normocephalic HEAD & SCALP: normocephalic Neck/C-Spine: COMMON NORMALS: full ROM Resp: COMMON NORMALS: normal respiratory effort and clear to auscultation bilaterally AUSCULTATION: clear to auscultation bilaterally Cardio: COMMON NORMALS: regular rate and regular rhythm RATE: regular rate RHYTHM: regular rhythm Extremity: COMMON NORMALS: negative for no pedal edema Neuro: SENSORIUM/ORIENTATION: Yes alert Skin: NARRATIVE SKIN EXAM: Chronic stasis dermatitis bilateral lower extremities Course Vital Signs: Vital signs: Vital Signs Temperature 98.6 F 10/16/21 20:45 Pulse Rate 89 10/16/21 20:45 Respiratory Rate 19 H 10/16/21 20:45 Blood Pressure 139/72 10/16/21 20:45 Pulse Oximetry 95 10/16/21 20:45 MDM - General Adult Medical Decision Making 66-year-old female comes in today for evaluation due to feeling weak, and short of breath along with elevated blood sugar. On exam patient is obese. Lungs are clear to auscultation. Bilateral lower extremities has stasis dermatitis. Abdomen soft nontender. Vital signs are normal. Differential diagnosis includes but not limited to DKA, dehydration, UTI, pneumonia. Chest x-ray was normal. CBC was unremarkable. CMP noted a blood glucose of 306. Urinalysis was positive for nitrites with significant amounts of white blood cells. Review of the microbiology record noted that a recent urine on the was cultured and grew out E. coli that was resistant to most oral medications except Macrobid and doxycycline. Doxycycline appeared to have a better coverage for the infection. I reviewed this with patient with recommendations for drink plenty of fluids and take medication for the next 7 days and then following up with primary care for recheck of urine. Patient reported understanding and agreed to plan. Lab Data : 10/16/21 21:30 10/16/21 21: Laboratory Results WBC 8.1 10^3/uL (4.0-10.0) 10/16/21 21: RBC 4.62 10^6/uL (4.1-5.3) 10/16/21 21: Hgb 13.4 g/dL (11.5-15.3) 10/16/21 21: Hct 40.3 % (37.0-47.0) 10/16/21: MCV 87.2 fl (81-99) 10/16/21 21: MCH 29.0 pg (28.0-34.0) 10/16/21: MCHC 33.3 g/dL (30.0-36.0) 10/16/21: RDW 13.7 % (12.1-15.1) 10/16/21: Plt Count 172 10^3/cmm (130-400) 10/16/21 21: MPV 13.0 fL (7.4-10.4) H 10/16/21 21: Neut % (Auto) 58.5 % 10/16/21 21: Lymph % (Auto) 30.8 % 10/16/21 21: [place] % (Auto) 7.4 % 10/16/21: Eos % (Auto) 2.6 % 10/16/21: Baso % (Auto) 0.5 % 10/16/21: Neut # (Auto) 4.76 10^3/uL (1.8-7.7) 10/16/21: Lymph # (Auto) 2.5 10^3/uL (0.8-4.8) 10/16/21 21: [place] # (Auto) 0.6 10^3/uL (0.2-0.9) 10/16/21 21: Eos # (Auto) 0.2 10^3/uL (0.0-0.8) 10/16/21 21:30 Baso # (Auto) 0.0 10^3/uL (0.0-0.1) 10/16/21 21:30 Nucleated RBC % (auto) 0 % 10/16/21 21: Nucleated RBCs # 0.0 /100WBC 10/16/21 21:30 Sodium 139 mmol/L (136-145) 10/16/21 21:30 Potassium 4.7 mmol/L (3.5-5.1) 10/16/21: Chloride 103 mmol/L (98-107) 10/16/21 21:30 Carbon Dioxide 26 mmol/L (22-29) 10/16/21:30 Anion Gap 14.7 (5-19) 10/16/21:30 BUN 11 mg/dL (8-23) 10/16/21:30 Creatinine 0.8 mg/dL (0.5-0.9) 10/16/21 21:30 GFR Calculation 72.2 mL/min (90-130) L 10/16/21: Glucose 306 mg/dL (65-115) H 10/16/21 21:30 Calculated Osmolality 299 mOsm/kg (285-295) H 10/16/21: Calcium 8.7 mg/dL (8.5-10.5) 10/16/21:30 Total Bilirubin 0.2 mg/dL (0.15-1.2) 10/16/21 21:30 AST 38 U/L (0-32) H 10/16/21 21:30 ALT 42 U/L (0-33) H 10/16/21 21:30 Alkaline Phosphatase 142 IU/L (35-105) H 10/16/21 21:30 Total Protein 6.6 g/dL (6.6-8.7) 10/16/21 21: Albumin 3.8 g/dL (3.5-5.2) 10/16/21 21: Globulin 2.8 g/dL (1.3-4.6) 10/16/21 21:30 Urine Color Yellow (Yellow) 10/16/21 23:15 Urine Appearance Clear (CLEAR) 10/16/21 23:15 Urine pH 6 (5-7) 10/16/21 23:15 Ur Specific [place] 1.015 (1.005-1.030) 10/16/21 23:15 Urine Protein Neg (Negative) 10/16/21 23:15 Urine Glucose (UA) 4+ (Normal) H 10/16/21 23:15 Urine Ketones Negative (Negative) 10/16/21 23:15 Urine Blood Neg (Negative) 10/16/21 23:15 Urine Nitrate Positive (Negative) H 10/16/21 23:15 Urine Bilirubin Neg (Negative) 10/16/21 23:15 Urine Urobilinogen Norm mg/dL (Negative) 10/16/21 23:15 Ur Leukocyte Esterase Negative (Negative) 10/16/21 23:15 Urine RBC 0-4 /hpf (0-2) H 10/16/21 23:15 Urine WBC 5-10 /hpf (0-5) H 10/16/21 23:15 Ur Squamous Epith Cells 5-10 /hpf (0-5) H 10/16/21 23:15 Amorphous Sediment Not Reportable 10/16/21 23:15 Urine Bacteria 3+ /hpf (NONE) H 10/16/21 23:15 Urine Mucus Trace /hpf 10/16/21 23:15 Serum Ketones Negative (Negative) 10/16/21 21:30 Discharge Plan Discharge Patient Disposition: Home Clinical Impression: UTI (urinary tract infection) due to Enterococcus Condition: Stable Prescriptions: New doxycycline monohydrate 100 mg capsule 100 mg PO BID 7 Days Qty: 14 0RF No Action melatonin 5 mg capsule 10 mg PO BEDTIME PRN (Reason: insomnia) 0RF (DME) Blood Glucose Test Strip See Rx Instructions .ROUTE .MEDSUPPLY Qty: 50 11RF Rx Instructions: Brand/type to go with meter per insurance coverage (DME) miscellaneous medical supply Misc See Rx Instructions .Route Qty: 1 0RF Rx Instructions: use 1-2l at night nitroglycerin 0.4 mg tablet, sublingual 0.4 mg SUBLINGUAL Q5M PRN (Reason: Chest Pain) Qty: 30 2RF naproxen sodium 220 mg tablet 440 mg PO .at bedtime 0RF metoprolol tartrate 75 mg tablet 75 mg PO Q12H 30 Days Qty: 60 5RF Eliquis 5 mg tablet See Rx Instructions .ROUTE .COMPLEX Qty: 60 5RF Dose Instruction: Take one tablet by mouth twice daily Rx Instructions: Take one tablet by mouth twice daily albuterol sulfate [Ventolin HFA] 90 mcg/actuation HFA aerosol inhaler 2 puff INHALATION Q6H PRN (Reason: shortness of breath or wheezing) Qty: 8.5 5RF methocarbamol 750 mg tablet 750 mg PO BID PRN (Reason: muscle spasm) 30 Days Qty: 60 5RF oxybutynin chloride 15 mg tablet extended release 24hr See Rx Instructions .ROUTE .COMPLEX Qty: 30 5RF Dose Instruction: Take one tablet by mouth daily Rx Instructions: Take one tablet by mouth daily pregabalin 75 mg capsule 75 mg PO BID 30 Days Qty: 60 2RF furosemide 40 mg tablet See Rx Instructions .ROUTE .COMPLEX Qty: 30 5RF Dose Instruction: Take one tablet by mouth twice daily Rx Instructions: Take one tablet by mouth twice daily, 8AM and Noon suvorexant 20 mg tablet 20 mg PO BEDTIME Qty: 30 0RF (DME) Depend Underwear For Women XL [facility] See Rx Instructions .Route Qty: 360 11RF Rx Instructions: As directed, 12 daily clopidogrel 75 mg tablet See Rx Instructions .ROUTE .COMPLEX Qty: 90 1RF Dose Instruction: TAKE ONE TABLET BY MOUTH EVERY DAY Rx Instructions: TAKE ONE TABLET BY MOUTH EVERY DAY miscellaneous medical supply [facility] 1 ea miscellaneous ONCE Qty: 1 0RF Rx Instructions: Patient requests wheelchair repair loratadine 10 mg tablet See Rx Instructions .ROUTE .COMPLEX Qty: 90 3RF Dose Instruction: TAKE ONE TABLET BY MOUTH DAILY AT BEDTIME NEEDED FOR ALLERGY SYMPTOMS Rx Instructions: TAKE ONE TABLET BY MOUTH DAILY AT BEDTIME NEEDED FOR ALLERGY SYMPTOMS aspirin 81 mg tablet,delayed release (DR/EC) See Rx Instructions .ROUTE .COMPLEX Qty: 90 3RF Dose Instruction: TAKE ONE TABLET BY MOUTH EVERY DAY Rx Instructions: TAKE ONE TABLET BY MOUTH EVERY DAY docusate sodium 100 mg capsule See Rx Instructions .ROUTE .COMPLEX Qty: 360 0RF Dose Instruction: TAKE TWO CAPSULES BY MOUTH TWICE A DAY FOR 30 DAYS Rx Instructions: TAKE TWO CAPSULES BY MOUTH TWICE A DAY FOR 30 DAYS diltiazem HCl 120 mg capsule,extended release 12 hr See Rx Instructions .ROUTE .COMPLEX Qty: 60 0RF Dose Instruction: TAKE ONE CAPSULE BY MOUTH TWICE A DAY Rx Instructions: TAKE ONE CAPSULE BY MOUTH TWICE A DAY miscellaneous medical supply [facility] See Rx Instructions miscellaneous .COMPLEX Qty: 1 0RF Rx Instructions: wheelchair repair miscellaneous; duloxetine 60 mg capsule,delayed release(DR/EC) See Rx Instructions .ROUTE .COMPLEX Qty: 30 0RF Dose Instruction: Take one capsule by mouth daily Rx Instructions: Take one capsule by mouth daily (DME) pen needle, diabetic [BD Ultra-Fine Mini Pen Needle] 31 gauge x 3/16 needle See Rx Instructions .ROUTE .COMPLEX Qty: 100 0RF Dose Instruction: Needs Directions Rx Instructions: Needs Directions potassium chloride 20 mEq tablet,ER particles/crystals See Rx Instructions .ROUTE .COMPLEX Qty: 180 0RF Dose Instruction: TAKE ONE TABLET BY MOUTH TWICE A DAY FOR 90 DAYS Rx Instructions: TAKE ONE TABLET BY MOUTH TWICE A DAY FOR 90 DAYS bupropion HCl [Wellbutrin XL] 300 mg tablet extended release 24 hr 300 mg PO QAM 30 Days Qty: 30 1RF risperidone 0.5 mg tablet 0.5 mg PO BID Qty: 60 1RF pramipexole 0.25 mg tablet See Rx Instructions .ROUTE .COMPLEX Qty: 30 1RF Dose Instruction: TAKE ONE TABLET BY MOUTH DAILY AT BEDTIME Rx Instructions: TAKE ONE TABLET BY MOUTH DAILY AT BEDTIME buspirone 10 mg tablet See Rx Instructions .ROUTE .COMPLEX Qty: 90 1RF Dose Instruction: TAKE 1 AND 1/2 TABLETS BY MOUTH TWICE A DAY Rx Instructions: TAKE 1 AND 1/2 TABLETS BY MOUTH TWICE A DAY insulin lispro [Humalog KwikPen Insulin] 100 unit/mL insulin pen 6 unit .ROUTE TID Qty: 15 3RF Rx Instructions: Inject 6 units subcut three times daily 15 minutes before meals insulin glargine 100 unit/mL (3 mL) insulin pen 28 unit SUBCUT QAM 30 Days Qty: 27 3RF cholecalciferol (vitamin D3) 1,250 mcg (50,000 unit) capsule 50,000 unit PO .Weekly 60 Days Qty: 10 3RF Rx Instructions: ON MONDAYS metformin 1,000 mg tablet extended release 24hr 1,000 mg PO BID Qty: 180 3RF Rx Instructions: Take one tablet by mouth twice a day. cyclobenzaprine 5 mg tablet See Rx Instructions .ROUTE .COMPLEX Qty: 60 5RF Dose Instruction: Take two tablets by mouth nightly Rx Instructions: Take two tablets by mouth nightly famotidine 20 mg tablet See Rx Instructions .ROUTE .COMPLEX Qty: 60 5RF Dose Instruction: Take one tablet by mouth twice daily Rx Instructions: Take one tablet by mouth twice daily sulfamethoxazole-trimethoprim 800-160 mg tablet 1 tab PO BID 7 Days Qty: 14 0RF multivitamin Tablet 1 tab PO DAILY Qty: 0 0RF ascorbic acid (vitamin C) [Vitamin C] 1,000 mg Tablet 1,000 mg PO DAILY Qty: 0 0RF Discharge Orders: Discharge ED (Routine); Ordered 10/17/21 Ordered By: Tushar Mcnair Referrals: Kristine Rodriguez MD [Primary Care Provider] - Discharge Diet: Usual diet Discharge Activity: Increase activity as tolerated Patient Instructions: Urinary Tract Infection in Women (ED) Activity Restrictions/Additional Instructions: Stay out of the heat all day. Drink plenty of water and fluids. Continue with routine medications. Take doxycycline 100 mg 2 times a day for next 7 days for urinary tract infection. This medication was based off the urine culture done with your doctors office on the . Follow-up with primary care in 1 week. Return to ED for new concerns. Coding Level of Care Code ED Test Engine Operator for Urvashi Shaw
[2021-10-16 21:38] LABS: Basophils % 0.5 %; Eosinophils # 0.2 10^3/uL (0.0-0.8); Eosinophils % 2.6 %; Hematocrit 40.3 % (37.0-47.0); Hemoglobin 13.4 g/dL (11.5-15.3); Lymphocytes # 2.5 10^3/uL (0.8-4.8); Lymphocytes % 30.8 %; Mean Corpuscular HGB Conc 33.3 g/dL (30.0-36.0); Mean Corpuscular Volume 87.2 fl (81-99); Monocytes # 0.6 10^3/uL (0.2-0.9); Monocytes % 7.4 %; Neutrophils # 4.76 10^3/uL (1.8-7.7); Neutrophils % 58.5 %; Nucleated Red Blood Cells % 0 %; Platelet Count 172 10^3/cmm (130-400); Red Blood Count 4.62 10^6/uL (4.1-5.3); Red Cell Distribution Width 13.7 % (12.1-15.1); White Blood Count 8.1 10^3/uL (4.0-10.0)
[2021-10-16 21:48] LABS: Ketone (Acetest) Serum Negative (Negative)
[2021-10-16 21:58] LABS: Alanine Aminotransferase 42 U/L (0-33); Albumin Level 3.8 g/dL (3.5-5.2); Alkaline Phosphatase 142 IU/L (35-105); Anion Gap 14.7 (5-19); Aspartate Amino Transferase 38 U/L (0-32); Blood Urea Nitrogen 11 mg/dL (8-23); Calcium 8.7 mg/dL (8.5-10.5); Carbon Dioxide 26 mmol/L (22-29); Chloride 103 mmol/L (98-107); Globulin 2.8 g/dL (1.3-4.6); Glomerular Filtration Rate 72.2 mL/min (90-130); Glucose 306 mg/dL (65-115); Osmolality Calculated 299 mOsm/kg (285-295); Potassium 4.7 mmol/L (3.5-5.1); Sodium 139 mmol/L (136-145); Total Bilirubin 0.2 mg/dL (0.15-1.2); Total Protein 6.6 g/dL (6.6-8.7)
--- NOTE | 2021-10-16 23:05 | XRR_ITS ---
PROCEDURE INFORMATION: Exam: XR Chest Exam date and time: 10/16/2021 11:24 PM Age: 66 years old Clinical indication: Shortness of breath; Additional info: Dyspnea TECHNIQUE: Imaging protocol: Radiologic exam of the chest. Views: 1 view. COMPARISON: CR XR chest 1V portable [id number] 06/23/2021 7:31 PM FINDINGS: Tubes, catheters and devices: Monitor leads project over the chest. Lungs: No significant or acute findings. No consolidation. Pleural spaces: No costophrenic angle blunting. No pneumothorax. Heart/Mediastinum: Heart size is normal given the portable AP technique. Bones/joints: No acute osseous abnormality. XR/XR chest 1V portable [id number] IMPRESSION: No acute abnormality demonstrated.
[2021-10-16] MEDS: sodium chloride 0.9% 1,000 ML 999 ML IV (23:08)
[2021-10-16 23:39] LABS: Urine Appearance Clear (CLEAR); Urine Color Yellow (Yellow)
[2021-10-16 23:40] LABS: Add Urine Microscopic? YES; Bilirubin Urine Neg (Negative); Blood Urine Neg (Negative); Glucose Urine UA 4+ (Normal); Ketones Urine Negative (Negative); Leukocyte Esterase Urine Negative (Negative); Nitrate Urine Positive (Negative); Protein Urine Neg (Negative); Specific Gravity, Urine 1.015 (1.005-1.030); Urobilinogen Urine Norm (Negative); pH Urine 6 (5-7)
[2021-10-16 23:41] LABS: Add Urine Culture? Yes; Bacteria Urine 3+ /hpf; Mucus Urine TRACE /hpf; RBC Urine 0-4 /hpf (0-2)
[2021-10-17] MEDS: doxycycline 100 mg Tablet PO (00:32)
[2021-10-17 00:38] VITALS: BP 129/79; PULSE 94; RESP 22; TEMP 36.7; O2SAT 96
== END 2021-10-17 00:40 | disposition home or self-care (01) ==
PROVIDERS: Emergency Provider Nurse Practitioner Family; PCP Family Medicine
DX: N39.0 Urinary tract infection, site not specified (principal); B95.2 Enterococcus as the cause of diseases classified elsewhere; E66.9 Obesity, unspecified; Z68.41 Body mass index [BMI] 40.0-44.9, adult; F17.210 Nicotine dependence, cigarettes, uncomplicated
CPT/HCPCS: 71045; 80053; 81001; 82009; 85025; 87077; 87086; 87186; 96360; 96361; 99284; J7030

== ENCOUNTER 2021-10-21 18:16 | Emergency (ER) | payer MEDICARE, MEDICAID, SELFPAY ==
[2021-08-26 17:10] VITALS: BP 146/84; BMI 43.9
--- NOTE | 2021-10-21 18:27 | XRR_ITS ---
PROCEDURE INFORMATION: Exam: XR Chest Exam date and time: 10/21/2021 7:06 PM Age: 66 years old Clinical indication: Shortness of breath; Additional info: Dyspnea TECHNIQUE: Imaging protocol: Radiologic exam of the chest. Views: 1 view. COMPARISON: CR (CHEST, ) 10/16/2021 11:24 PM FINDINGS: Lungs: Unremarkable. No consolidation. Pleural spaces: Unremarkable. No pleural effusion. No pneumothorax. Heart/Mediastinum: Unremarkable. No cardiomegaly. Bones/joints: Unremarkable. XR/XR chest 1V portable [id number] IMPRESSION: No acute findings.
[2021-10-21 18:47] VITALS: BP 205/145; PULSE 108; RESP 18; TEMP 37.2; O2SAT 95; BMI 44.6
[2021-10-21 20:31] VITALS: BP 125/100; PULSE 106; RESP 17; O2SAT 93
--- NOTE | 2021-10-21 20:36 | ED_ITS ---
HPI - SOB/Dyspnea General: Chief Complaint: Shortness of Breath/Dyspnea Stated Complaint: SOB Time Seen by Provider: 10/21/21 20:04 Source: patient Mode of arrival: ambulatory Limitations: no limitations History of Present Illness: HPI Narrative: 66-year-old female who states she has been having chronic shortness of breath for months. States she does continue to be short of breath especially with activity. She denies any cough or fever. States she has pain everywhere but has chronic pain denies any new pain denies any chest pain. Patient is currently resting comfortably here. Associated symptoms: Deny abdominal pain, chest pain, fever(s), nausea or vomiting Review of Systems Const: Reports: body aches; Denies: fever(s), chills or change in appetite Eyes: Denies: blurry vision or eye discomfort ENMT: Denies: throat pain or dental pain Card: Denies: chest pain Resp: Denies: dyspnea GI: Denies: abdominal pain, nausea, vomiting or diarrhea : Denies: dysuria Musc: Denies: neck pain or back pain Skin/Breast: Denies: rash Neuro: Denies: headache(s) Psych: Denies: depression Jagjit/Lymph: Denies: easy bruising All/Imm: Denies: urticaria PFSH ED PFSH: Medical History Atypical chest pain Bipolar depression CAD (coronary artery disease) Chest pain Chronic headache Chronic pain syndrome Due to her weight and other comorbidities I do not think that there is much that pain management would be able to do. They can do localized injections or treatments on specific joints but she would never be a surgical candidate. Constipation, chronic COPD (chronic obstructive pulmonary disease) Diabetes mellitus type 2 in obese DM type 2 (diabetes mellitus, type 2) Fibromyalgia Generalized anxiety disorder GERD (gastroesophageal reflux disease) Hyperlipemia Hypertension, benign Insomnia Major depressive disorder, recurrent, moderate Mixed stress and urge urinary incontinence Nicotine dependence, cigarettes, with other nicotine-induced disorders NONA (obstructive sleep apnea) Uses CPAP Overactive bladder Panic disorder [episodic paroxysmal anxiety] Paroxysmal A-fib Paroxysmal atrial fibrillation (~08/2020) Paroxysmal SVT (supraventricular tachycardia) Peripheral Vascular Disease RLS (restless legs syndrome) Surgical History H/O thyroidectomy H/O: hysterectomy Hx of cholecystectomy S/P appendectomy Family History Mother , at age 75 Hypertension Father , at age 87 Hypertension Denies family history of Lung disease Stroke Social History Smoking and tobacco status: current every day smoker (1/2 PPD) cigarettes Packs smoked per day: 1 Years cigarettes smoked: 44 Second hand smoke exposure: No Alcohol intake: never Adopted: No Caregiver/support person: No Lives independently: Yes Household members: none Housing: Apartment Marital status: / Number of children: 8 Number of grandchildren: 14 Highest education level completed: Some College, No Degree service: No Current occupational status: disabled Pets and animals: Yes Pets & animals: dog(s) History of recent travel: No Leisure activites: art, music, reading and other Sexually active: No Current gender identity: Female Lilliam/Episcopalian: [employer] lilliam needs: No Agree to transfusion: Yes Financial difficulty paying for basics: Not Very Hard Female Reproductive History: Para: 8 Spontaneous abortions: No Physical Exam Const: COMMON NORMALS: no acute distress, patient oriented x3 and healthy appearing HENMT: COMMON NORMALS: normocephalic and atraumatic HEAD & SCALP: normocephalic and atraumatic Eye: COMMON NORMALS: Equal, round and reactive pupils present and EOMs intact bilaterally PUPIL: Yes Equal, round and reactive pupils present Neck/C-Spine: COMMON NORMALS: full ROM and supple Chest: COMMONS NORMALS: normal inspection of the chest and normal palpation of entire chest wall Resp: COMMON NORMALS: normal respiratory effort, No retractions, No use of accessory muscles and clear to auscultation bilaterally AUSCULTATION: clear to auscultation bilaterally Cardio: COMMON NORMALS: regular rate, regular rhythm and No murmurs present (Cardio) RATE: regular rate RHYTHM: regular rhythm GI: COMMON NORMALS: Normal to inspection, nondistended, normoactive bowel sounds present, Soft to palpation, non-tender and no masses PALPATION: Yes Soft to palpation Extremity: COMMON NORMALS: normal to inspection and full ROM Neuro: COMMON NORMALS: patient oriented x3, moves all extremities and no focal motor deficits Psych: COMMON NORMALS: mental status grossly normal, Normal thought process present and cooperative THOUGHT PROCESS: Normal thought process present Skin: COMMON NORMALS: no rashes or lesions noted and no wounds GENERAL SKIN EXAM: no rashes or lesions noted Course Vital Signs: Vital signs: Vital Signs Temperature 99 F 10/21/21 18:47 Pulse Rate 106 H 10/21/21 20:31 Respiratory Rate 18 10/21/21 20:59 Blood Pressure 125/100 10/21/21 20:31 Pulse Oximetry 93 10/21/21 20:31 MDM - SOB/Dyspnea Medical Decision Making Patient presents here with shortness of breath been chronic in nature she is well-appearing here no distress not requiring any oxygen patient's blood work and x-ray here are normal she has no signs of dissection or cardiac cause. She has no signs of pulm embolism she is to follow-up with her PCP in 2 to 4 days return if worsening. Lab Data : 10/21/21 20:21 10/21/21 20:21 Labs/Radiology: Radiology Impressions Chest X-Ray 10/21/21 18:27 IMPRESSION: No acute findings. Laboratory Results WBC 8.0 10^3/uL (4.0-10.0) 10/21/21 20:21 RBC 4.59 10^6/uL (4.1-5.3) 10/21/21 20:21 Hgb 13.5 g/dL (11.5-15.3) 10/21/21 20:21 Hct 40.6 % (37.0-47.0) 10/21/21 20:21 MCV 88.5 fl (81-99) 10/21/21 20:21 MCH 29.4 pg (28.0-34.0) 10/21/21 20:21 MCHC 33.3 g/dL (30.0-36.0) 10/21/21 20:21 RDW 13.8 % (12.1-15.1) 10/21/21 20:21 Plt Count 163 10^3/cmm (130-400) 10/21/21 20:21 MPV 12.3 fL (7.4-10.4) H 10/21/21 20:21 Neut % (Auto) 57.4 % 10/21/21 20:21 Lymph % (Auto) 30.9 % 10/21/21 20:21 [place] % (Auto) 8.1 % 10/21/21 20:21 Eos % (Auto) 2.9 % 10/21/21 20:21 Baso % (Auto) 0.4 % 10/21/21 20:21 Neut # (Auto) 4.59 10^3/uL (1.8-7.7) 10/21/21 20:21 Lymph # (Auto) 2.5 10^3/uL (0.8-4.8) 10/21/21 20:21 [place] # (Auto) 0.7 10^3/uL (0.2-0.9) 10/21/21 20:21 Eos # (Auto) 0.2 10^3/uL (0.0-0.8) 10/21/21 20:21 Baso # (Auto) 0.0 10^3/uL (0.0-0.1) 10/21/21 20:21 Nucleated RBC % (auto) 0 % 10/21/21 20:21 Nucleated RBCs # 0.0 /100WBC 10/21/21 20:21 PT 14.70 SECONDS (12.1-14.9) 10/21/21 21:18 INR 1.12 (0.8-1.2) 10/21/21 21:18 Sodium 133 mmol/L (136-145) L 10/21/21 20:21 Potassium 3.9 mmol/L (3.5-5.1) 10/21/21 20:21 Chloride 97 mmol/L (98-107) L 10/21/21 20:21 Carbon Dioxide 27 mmol/L (22-29) 10/21/21 20:21 Anion Gap 12.9 (5-19) 10/21/21 20:21 BUN 11 mg/dL (8-23) 10/21/21 20:21 Creatinine 0.5 mg/dL (0.5-0.9) 10/21/21 20:21 GFR Calculation 124.2 mL/min (90-130) 10/21/21 20:21 Glucose 242 mg/dL (65-115) H 10/21/21 20:21 Calculated Osmolality 283 mOsm/kg (285-295) L 10/21/21 20:21 Calcium 9.1 mg/dL (8.5-10.5) 10/21/21 20:21 Troponin T Baseline 10 ng/L (0-10) 10/21/21 20:21 NT-Pro-B Natriuret Pep 608 pg/mL (0-125) H 10/21/21 20:21 EKG Data EKG 1: I personally reviewed and interpreted this EKG as follows: EKG Interpretation Date: 10/21/21 EKG interpretation time: 20:32 Interpretation: atral tachycardia [address] or t wave abnormalities qrs 91 qtc 399 Discharge Plan Discharge Patient Disposition: Home Clinical Impression: Shortness of breath Condition: Stable Prescriptions: No Action melatonin 5 mg capsule 10 mg PO BEDTIME PRN (Reason: insomnia) 0RF (DME) Blood Glucose Test Strip See Rx Instructions .ROUTE .MEDSUPPLY Qty: 50 11RF Rx Instructions: Brand/type to go with meter per insurance coverage (DME) miscellaneous medical supply Misc See Rx Instructions .Route Qty: 1 0RF Rx Instructions: use 1-2l at night nitroglycerin 0.4 mg tablet, sublingual 0.4 mg SUBLINGUAL Q5M PRN (Reason: Chest Pain) Qty: 30 2RF naproxen sodium 220 mg tablet 440 mg PO .at bedtime 0RF insulin glargine 100 unit/mL (3 mL) insulin pen 30 unit SUBCUT QAM 0RF metoprolol tartrate 75 mg tablet 75 mg PO Q12H 30 Days Qty: 60 5RF Eliquis 5 mg tablet See Rx Instructions .ROUTE .COMPLEX Qty: 60 5RF Dose Instruction: Take one tablet by mouth twice daily Rx Instructions: Take one tablet by mouth twice daily albuterol sulfate [Ventolin HFA] 90 mcg/actuation HFA aerosol inhaler 2 puff INHALATION Q6H PRN (Reason: shortness of breath or wheezing) Qty: 8.5 5RF methocarbamol 750 mg tablet 750 mg PO BID PRN (Reason: muscle spasm) 30 Days Qty: 60 5RF oxybutynin chloride 15 mg tablet extended release 24hr See Rx Instructions .ROUTE .COMPLEX Qty: 30 5RF Dose Instruction: Take one tablet by mouth daily Rx Instructions: Take one tablet by mouth daily pregabalin 75 mg capsule 75 mg PO BID 30 Days Qty: 60 2RF furosemide 40 mg tablet See Rx Instructions .ROUTE .COMPLEX Qty: 30 5RF Dose Instruction: Take one tablet by mouth twice daily Rx Instructions: Take one tablet by mouth twice daily, 8AM and Noon suvorexant 20 mg tablet 20 mg PO BEDTIME Qty: 30 0RF (DME) Depend Underwear For Women [facility] See Rx Instructions .Route Qty: 360 11RF Rx Instructions: As directed, 12 daily clopidogrel 75 mg tablet See Rx Instructions .ROUTE .COMPLEX Qty: 90 1RF Dose Instruction: TAKE ONE TABLET BY MOUTH EVERY DAY Rx Instructions: TAKE ONE TABLET BY MOUTH EVERY DAY miscellaneous medical supply [facility] [place] [place] 1 ea miscellaneous ONCE Qty: 1 0RF Rx Instructions: Patient requests wheelchair repair loratadine 10 mg tablet See Rx Instructions .ROUTE .COMPLEX Qty: 90 3RF Dose Instruction: TAKE ONE TABLET BY MOUTH DAILY AT BEDTIME NEEDED FOR ALLERGY SYMPTOMS Rx Instructions: TAKE ONE TABLET BY MOUTH DAILY AT BEDTIME NEEDED FOR ALLERGY SYMPTOMS aspirin 81 mg tablet,delayed release (DR/EC) See Rx Instructions .ROUTE .COMPLEX Qty: 90 3RF Dose Instruction: TAKE ONE TABLET BY MOUTH EVERY DAY Rx Instructions: TAKE ONE TABLET BY MOUTH EVERY DAY docusate sodium 100 mg capsule See Rx Instructions .ROUTE .COMPLEX Qty: 360 0RF Dose Instruction: TAKE TWO CAPSULES BY MOUTH TWICE A DAY FOR 30 DAYS Rx Instructions: TAKE TWO CAPSULES BY MOUTH TWICE A DAY FOR 30 DAYS diltiazem HCl 120 mg capsule,extended release 12 hr See Rx Instructions .ROUTE .COMPLEX Qty: 60 0RF Dose Instruction: TAKE ONE CAPSULE BY MOUTH TWICE A DAY Rx Instructions: TAKE ONE CAPSULE BY MOUTH TWICE A DAY [facility] See Rx Instructions miscellaneous .COMPLEX Qty: 1 0RF Rx Instructions: wheelchair repair miscellaneous; duloxetine 60 mg capsule,delayed release(DR/EC) See Rx Instructions .ROUTE .COMPLEX Qty: 30 0RF Dose Instruction: Take one capsule by mouth daily Rx Instructions: Take one capsule by mouth daily (DME) pen needle, diabetic [BD Ultra-Fine Mini Pen Needle] 31 gauge x 3/16 needle See Rx Instructions .ROUTE .COMPLEX Qty: 100 0RF Dose Instruction: Needs Directions Rx Instructions: Needs Directions potassium chloride 20 mEq tablet,ER particles/crystals See Rx Instructions .ROUTE .COMPLEX Qty: 180 0RF Dose Instruction: TAKE ONE TABLET BY MOUTH TWICE A DAY FOR 90 DAYS Rx Instructions: TAKE ONE TABLET BY MOUTH TWICE A DAY FOR 90 DAYS bupropion HCl [Wellbutrin XL] 300 mg tablet extended release 24 hr 300 mg PO QAM 30 Days Qty: 30 1RF risperidone 0.5 mg tablet 0.5 mg PO BID Qty: 60 1RF pramipexole 0.25 mg tablet See Rx Instructions .ROUTE .COMPLEX Qty: 30 1RF Dose Instruction: TAKE ONE TABLET BY MOUTH DAILY AT BEDTIME Rx Instructions: TAKE ONE TABLET BY MOUTH DAILY AT BEDTIME buspirone 10 mg tablet See Rx Instructions .ROUTE .COMPLEX Qty: 90 1RF Dose Instruction: TAKE 1 AND 1/2 TABLETS BY MOUTH TWICE A DAY Rx Instructions: TAKE 1 AND 1/2 TABLETS BY MOUTH TWICE A DAY insulin lispro [Humalog KwikPen Insulin] 100 unit/mL insulin pen 6 unit .ROUTE TID Qty: 15 3RF Rx Instructions: Inject 6 units subcut three times daily 15 minutes before meals cholecalciferol (vitamin D3) 1,250 mcg (50,000 unit) capsule 50,000 unit PO .Weekly 60 Days Qty: 10 3RF Rx Instructions: ON MONDAYS metformin 1,000 mg tablet extended release 24hr 1,000 mg PO BID Qty: 180 3RF Rx Instructions: Take one tablet by mouth twice a day. cyclobenzaprine 5 mg tablet See Rx Instructions .ROUTE .COMPLEX Qty: 60 5RF Dose Instruction: Take two tablets by mouth nightly Rx Instructions: Take two tablets by mouth nightly famotidine 20 mg tablet See Rx Instructions .ROUTE .COMPLEX Qty: 60 5RF Dose Instruction: Take one tablet by mouth twice daily Rx Instructions: Take one tablet by mouth twice daily sulfamethoxazole-trimethoprim 800-160 mg tablet 1 tab PO BID 7 Days Qty: 14 0RF multivitamin Tablet 1 tab PO DAILY Qty: 0 0RF ascorbic acid (vitamin C) [Vitamin C] 1,000 mg Tablet 1,000 mg PO DAILY Qty: 0 0RF doxycycline monohydrate 100 mg capsule 100 mg PO BID 7 Days Qty: 14 0RF Discharge Orders: Discharge ED (Routine); Ordered 10/21/21 Ordered By: Claudia Ram Referrals: Kristine Rodriguez MD [Primary Care Provider] - Discharge Diet: Advance as tolerated Discharge Activity: Resume usual activity Patient Instructions: Dyspnea (ED) Coding Level of Care Code ED General Service Technician for Chg Fwd Exam Comprehensive
[2021-10-21 20:40] LABS: Basophils % 0.4 %; Eosinophils # 0.2 10^3/uL (0.0-0.8); Eosinophils % 2.9 %; Hematocrit 40.6 % (37.0-47.0); Hemoglobin 13.5 g/dL (11.5-15.3); Lymphocytes # 2.5 10^3/uL (0.8-4.8); Lymphocytes % 30.9 %; Mean Corpuscular HGB Conc 33.3 g/dL (30.0-36.0); Mean Corpuscular Hemoglobin 29.4 pg (28.0-34.0); Mean Corpuscular Volume 88.5 fl (81-99); Mean Platelet Volume 12.3 fL (7.4-10.4); Monocytes # 0.7 10^3/uL (0.2-0.9); Monocytes % 8.1 %; Neutrophils # 4.59 10^3/uL (1.8-7.7); Neutrophils % 57.4 %; Nucleated Red Blood Cells % 0 %; Platelet Count 163 10^3/cmm (130-400); Red Blood Count 4.59 10^6/uL (4.1-5.3); Red Cell Distribution Width 13.8 % (12.1-15.1)
[2021-10-21 20:59] VITALS: RESP 18
[2021-10-21] MEDS: morphine 4 mg/mL SDV 1 mL IVP (20:59)
[2021-10-21] MEDS: ondansetron 2 mg/ML SDV 2 mL 4 MG IVP (21:00)
[2021-10-21 21:01] LABS: Troponin(5th) Baseline 10 ng/L (0-10)
[2021-10-21 21:05] LABS: Anion Gap 12.9 (5-19); Blood Urea Nitrogen 11 mg/dL (8-23); Calcium 9.1 mg/dL (8.5-10.5); Carbon Dioxide 27 mmol/L (22-29); Chloride 97 mmol/L (98-107); Glomerular Filtration Rate 124.2 mL/min (90-130); Glucose 242 mg/dL (65-115); NT Pro B Type Natriuretic Pept 608 pg/mL (0-125); Osmolality Calculated 283 mOsm/kg (285-295); Potassium 3.9 mmol/L (3.5-5.1); Sodium 133 mmol/L (136-145)
[2021-10-21 22:07] LABS: INR 1.12 (0.8-1.2)
--- NOTE | 2021-10-21 22:16 | ECG_ITS ---
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 Measurements Intervals [place] Rate: 106 P: RI: QRS: -18 QRSD: 91 T: 37 QT: 337 QTc: 447 Interpretive Statements ATRIAL FLUTTER WITH RAPID VENTRICULAR RESPONSE LOW QRS VOLTAGE IN PRECORDIAL LEADS [QRS DEFLECTION < 1.0 mV IN CHEST LEADS] PATTERN CONSISTENT WITH PULMONARY DISEASE MODERATE ST DEPRESSION [0.05+ mV ST DEPRESSION] Compared to ECG 06/23/2021 19:19:30 Low QRS voltage now present ST (T wave) deviation now present Electronically Signed On 10-21-2021 22:28:26 CDT by Shahana Hernandez M.D. [id number]
[2021-10-21 22:40] VITALS: RESP 20
== END 2021-10-21 22:41 | disposition home or self-care (01) ==
PROVIDERS: Emergency Medicine; Emergency Provider Emergency Medicine; PCP Family Medicine
DX: R06.02 Shortness of breath (principal); Z79.01 Long term (current) use of anticoagulants; Z79.84 Long term (current) use of oral hypoglycemic drugs; Z79.02 Long term (current) use of antithrombotics/antiplatelets; Z79.82 Long term (current) use of aspirin; Z79.4 Long term (current) use of insulin; I25.10 Atherosclerotic heart disease of native coronary artery without angina pectoris; J44.9 Chronic obstructive pulmonary disease, unspecified; E11.9 Type 2 diabetes mellitus without complications; E78.5 Hyperlipidemia, unspecified; I10 Essential (primary) hypertension; F17.210 Nicotine dependence, cigarettes, uncomplicated
CPT/HCPCS: 71045; 80048; 83880; 84484; 85025; 85610; 93005; 96374; 96375; 99284; J2270; J2405

== ENCOUNTER → 2021-10-27 09:22 | Outpatient (BNVA) | payer MEDICARE, MEDICAID, SELFPAY ==
[2021-08-26 17:10] VITALS: BP 146/84; BMI 43.9
== END ==
PROVIDERS: PCP Family Medicine; Visit Provider Family Medicine
DX: E11.69 Type 2 diabetes mellitus with other specified complication (principal); E66.9 Obesity, unspecified; Z87.440 Personal history of urinary (tract) infections; N39.46 Mixed incontinence; R06.02 Shortness of breath; I47.1 Supraventricular tachycardia; R09.02 Hypoxemia
CPT/HCPCS: 81000; 87086

== ENCOUNTER 2021-12-14 02:20 | Emergency (ER) | payer MEDICARE, MEDICAID, SELFPAY ==
[2021-08-26 17:10] VITALS: BP 146/84; BMI 43.9
[2021-12-14] VITALS (8 sets, daily range): BP systolic 98–152; BP diastolic 52–99; PULSE 67–107; RESP 16–22; TEMP 36.9–37.5; O2SAT 93–98; BMI 46.0
--- NOTE | 2021-12-14 02:33 | ECG_ITS ---
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 Measurements Intervals [place] Rate: 106 P: MD: QRS: -14 QRSD: 93 T: 30 QT: 333 QTc: 442 Interpretive Statements ATRIAL FLUTTER/TACHYCARDIA WITH RAPID VENTRICULAR RESPONSE LOW QRS VOLTAGE IN PRECORDIAL LEADS [QRS DEFLECTION < 1.0 mV IN CHEST LEADS] PATTERN CONSISTENT WITH PULMONARY DISEASE MODERATE ST DEPRESSION [0.05+ mV ST DEPRESSION] Compared to ECG 10/21/2021 20:32:42 No significant changes Electronically Signed On 12-14-2021 13:12:47 CDT by Kevon Ge M.D. [id number]
--- NOTE | 2021-12-14 02:34 | XRR_ITS ---
PROCEDURE INFORMATION: Exam: XR Chest Exam date and time: 12/14/2021 3:00 AM Age: 66 years old Clinical indication: Shortness of breath; Additional info: SOB TECHNIQUE: Imaging protocol: Radiologic exam of the chest. Views: 1 view. COMPARISON: CR XR chest 1V portable [id number] 10/21/2021 7:06 PM FINDINGS: Lungs: Stable scarring in the left mid lung. Otherwise, negative examination. Pleural spaces: Unremarkable. No pleural effusion. No pneumothorax. Heart/Mediastinum: Unremarkable. No cardiomegaly. Bones/joints: Unremarkable. XR/XR chest 1V portable [id number] IMPRESSION: Stable scarring in the left mid lung. Otherwise, negative examination.
--- NOTE | 2021-12-14 02:38 | W.ED.CHESTPA ---
HPI - Chest Pain General: Chief Complaint: Chest Pain Stated Complaint: SOB/CP Time Seen by Provider: 12/14/21 02:21 Source: patient and EMS Mode of arrival: EMS Limitations: no limitations History of Present Illness: 66-year-old female who states over the last 2 to 3 days she has been having fever body aches along with increasing cough and dyspnea. Patient is on 2 L at baseline at home her pulse ox here is 97% on 2 L. She has a history of A. fib she denies any chest pain to me she states she has body aches all over. She has a low-grade fever here and denies any nausea or vomiting or diarrhea. Associated symptoms: Reports fever(s); Deny abdominal pain, nausea or vomiting Review of Systems Const: Reports: fever(s), chills and body aches Eyes: Denies: blurry vision or eye discomfort ENMT: Denies: throat pain or dental pain Card: Denies: chest pain Resp: Reports: non-productive cough GI: Denies: abdominal pain, nausea, vomiting or diarrhea : Denies: dysuria Musc: Denies: neck pain or back pain Skin/Breast: Denies: rash Neuro: Denies: headache(s) Psych: Denies: depression Jagjit/Lymph: Denies: easy bruising All/Imm: Denies: urticaria PFSH ED PFSH: Medical History Atypical chest pain Bipolar depression CAD (coronary artery disease) Chest pain Chronic headache Chronic pain syndrome Due to her weight and other comorbidities I do not think that there is much that pain management would be able to do. They can do localized injections or treatments on specific joints but she would never be a surgical candidate. Constipation, chronic COPD (chronic obstructive pulmonary disease) Diabetes mellitus type 2 in obese DM type 2 (diabetes mellitus, type 2) Fibromyalgia Generalized anxiety disorder GERD (gastroesophageal reflux disease) Hyperlipemia Hypertension, benign Insomnia Major depressive disorder, recurrent, moderate Mixed stress and urge urinary incontinence Nicotine dependence, cigarettes, with other nicotine-induced disorders NONA (obstructive sleep apnea) Uses CPAP Overactive bladder Panic disorder [episodic paroxysmal anxiety] Paroxysmal A-fib Paroxysmal atrial fibrillation (~08/2020) Paroxysmal SVT (supraventricular tachycardia) Peripheral Vascular Disease RLS (restless legs syndrome) Surgical History H/O thyroidectomy H/O: hysterectomy Hx of cholecystectomy S/P appendectomy Family History Mother , at age 75 Hypertension Father , at age 87 Hypertension Denies family history of Lung disease Stroke Social History Smoking and tobacco status: current every day smoker (1/2 PPD) cigarettes Packs smoked per day: 1 Years cigarettes smoked: 44 Second hand smoke exposure: No Alcohol intake: never Adopted: No Caregiver/support person: No Lives independently: Yes Household members: none Housing: Apartment Marital status: / Number of children: 8 Number of grandchildren: 14 Highest education level completed: Some College, No Degree service: No Current occupational status: disabled Pets and animals: Yes Pets & animals: dog(s) History of recent travel: No Leisure activites: art, music, reading and other Sexually active: No Current gender identity: Female Lilliam/Yazidi: Yazdanism Special lilliam needs: No Agree to transfusion: Yes Financial difficulty paying for basics: Not Very Hard Female Reproductive History: Para: 8 Spontaneous abortions: No Physical Exam Const: COMMON NORMALS: patient oriented x3 HENMT: COMMON NORMALS: normocephalic and atraumatic HEAD & SCALP: normocephalic and atraumatic Eye: COMMON NORMALS: Equal, round and reactive pupils present and EOMs intact bilaterally PUPIL: Yes Equal, round and reactive pupils present Neck/C-Spine: COMMON NORMALS: full ROM and supple Chest: COMMONS NORMALS: normal inspection of the chest and normal palpation of entire chest wall Resp: COMMON NORMALS: normal respiratory effort, No retractions and No use of accessory muscles AUSCULTATION: wheezes Cardio: COMMON NORMALS: No murmurs present (Cardio) RATE: tachycardic RHYTHM: abnormal rhythm irregularly irregular GI: COMMON NORMALS: Normal to inspection, nondistended, normoactive bowel sounds present, Soft to palpation, non-tender and no masses PALPATION: Yes Soft to palpation Extremity: COMMON NORMALS: normal to inspection and full ROM Neuro: COMMON NORMALS: patient oriented x3, moves all extremities and no focal motor deficits Psych: COMMON NORMALS: mental status grossly normal, Normal thought process present and cooperative THOUGHT PROCESS: Normal thought process present Skin: COMMON NORMALS: no rashes or lesions noted and no wounds GENERAL SKIN EXAM: no rashes or lesions noted Course Vital Signs: Vital signs: Vital Signs Temperature 98.5 F 12/14/21 03:14 Pulse Rate 105 H 12/14/21 03:45 Respiratory Rate 19 H 12/14/21 03:45 Blood Pressure 134/81 12/14/21 03:45 Pulse Oximetry 97 12/14/21 03:45 Oxygen Delivery Me thod 12/14/21 03:14 Oxygen Flow Rate 2 12/14/21 03:14 MDM - Chest Pain Medical Decision Making Patient presents with shortness of breath she feels much improved here after breathing treatment likely a bronchitis she has no signs of pneumonia white count here is normal she has had no pain when she has been here EKG per troponin are normal we will prescribe her steroids she has an inhaler at home she is to use she is to follow-up with PCP and return if worsening. Lab Data : 12/14/21 02:24 12/14/21 02:46 Radiology Impressions Chest X-Ray 12/14/21 02:34 IMPRESSION: Stable scarring in the left mid lung. Otherwise, negative examination. Laboratory Results WBC 8.7 10^3/uL (4.0-10.0) 12/14/21 02:24 RBC 4.88 10^6/uL (4.1-5.3) 12/14/21 02:24 Hgb 14.2 g/dL (11.5-15.3) 12/14/21 02:24 Hct 44.0 % (37.0-47.0) 12/14/21 02:24 MCV 90.2 fl (81-99) 12/14/21 02:24 MCH 29.1 pg (28.0-34.0) 12/14/21 02:24 MCHC 32.3 g/dL (30.0-36.0) 12/14/21 02:24 RDW 15.5 % (12.1-15.1) H 12/14/21 02:24 Plt Count 164 10^3/cmm (130-400) 12/14/21 02:24 MPV 12.7 fL (7.4-10.4) H 12/14/21 02:24 Neut % (Auto) 55.2 % 12/14/21 02:24 Lymph % (Auto) 32.0 % 12/14/21 02:24 [place] % (Auto) 10.5 % 12/14/21 02:24 Eos % (Auto) 1.8 % 12/14/21 02:24 Baso % (Auto) 0.3 % 12/14/21 02:24 Neut # (Auto) 4.81 10^3/uL (1.8-7.7) 12/14/21 02:24 Lymph # (Auto) 2.8 10^3/uL (0.8-4.8) 12/14/21 02:24 [place] # (Auto) 0.9 10^3/uL (0.2-0.9) 12/14/21 02:24 Eos # (Auto) 0.2 10^3/uL (0.0-0.8) 12/14/21 02:24 Baso # (Auto) 0.0 10^3/uL (0.0-0.1) 12/14/21 02:24 Nucleated RBC % (auto) 0 % 12/14/21 02:24 Nucleated RBCs # 0.0 /100WBC 12/14/21 02:24 Sodium 137 mmol/L (136-145) 12/14/21 02:46 Potassium 4.2 mmol/L (3.5-5.1) 12/14/21 02:46 Chloride 101 mmol/L (98-107) 12/14/21 02:46 Carbon Dioxide 27 mmol/L (22-29) 12/14/21 02:46 Anion Gap 13.2 (5-19) 12/14/21 02:46 BUN 12 mg/dL (8-23) 12/14/21 02:46 Creatinine 0.5 mg/dL (0.5-0.9) 12/14/21 02:46 GFR Calculation 124.2 mL/min (90-130) 12/14/21 02:46 Glucose 185 mg/dL (65-115) H 12/14/21 02:46 Calculated Osmolality 289 mOsm/kg (285-295) 12/14/21 02:46 Lactic Acid 1.5 mmol/L (0.5-2.2) 12/14/21 02:46 Calcium 8.2 mg/dL (8.5-10.5) L 12/14/21 02:46 Total Bilirubin 0.7 mg/dL (0.15-1.2) 12/14/21 02:46 AST 37 U/L (0-32) H 12/14/21 02:46 ALT 45 U/L (0-33) H 12/14/21 02:46 Alkaline Phosphatase 128 IU/L (35-105) H 12/14/21 02:46 Troponin T Baseline 11 ng/L (0-10) H 12/14/21 02:46 NT-Pro-B Natriuret Pep 884 pg/mL (0-125) H 12/14/21 02:46 Total Protein 5.9 g/dL (6.6-8.7) L 12/14/21 02:46 Albumin 3.1 g/dL (3.5-5.2) L 12/14/21 02:46 Globulin 2.8 g/dL (1.3-4.6) 12/14/21 02:46 SARS-CoV-2 Ag (Rapid) Negative (Negative) 12/14/21 02:24 EKG Data EKG 1: I personally reviewed and interpreted this EKG as follows: EKG interpretation date: 12/14/21 EKG interpretation time: 02:25 Interpretation: atrial fib hr [address] or t wave abnormalities qrs 93 qtc 395 Discharge Plan Discharge Patient Disposition: Home Clinical Impression: Atypical chest pain, Dyspnea Condition: Stable Prescriptions: New prednisone 50 mg tablet 50 mg PO DAILY Qty: 5 0RF No Action melatonin 5 mg capsule 10 mg PO BEDTIME PRN (Reason: insomnia) (DME) Blood Glucose Test Strip See Rx Instructions .ROUTE .MEDSUPPLY Qty: 50 11RF Rx Instructions: Brand/type to go with meter per insurance coverage (DME) miscellaneous medical supply Misc See Rx Instructions .Route Qty: 1 0RF Rx Instructions: use 1-2l at night nitroglycerin 0.4 mg tablet, sublingual 0.4 mg SUBLINGUAL Q5M PRN (Reason: Chest Pain) Qty: 30 2RF buspirone 10 mg tablet See Rx Instructions .ROUTE .COMPLEX Qty: 90 1RF Dose Instruction: TAKE 1 AND 1/2 TABLETS BY MOUTH TWICE A DAY Rx Instructions: TAKE 1 AND 1/2 TABLETS BY MOUTH TWICE A DAY insulin glargine 100 unit/mL (3 mL) insulin pen 32 unit SUBCUT QAM clopidogrel 75 mg tablet See Rx Instructions .ROUTE .COMPLEX Qty: 90 1RF Dose Instruction: TAKE ONE TABLET BY MOUTH EVERY DAY Rx Instructions: TAKE ONE TABLET BY MOUTH EVERY DAY oxybutynin chloride 15 mg tablet extended release 24hr See Rx Instructions .ROUTE .COMPLEX Qty: 90 1RF Dose Instruction: Take one tablet by mouth daily Rx Instructions: Take one tablet by mouth daily miscellaneous medical supply [facility] See Rx Instructions miscellaneous .COMPLEX Qty: 1 0RF Rx Instructions: 2L NC with activity miscellaneous; metoprolol tartrate 75 mg tablet 75 mg PO Q12H 30 Days Qty: 60 5RF Eliquis 5 mg tablet See Rx Instructions .ROUTE .COMPLEX Qty: 60 5RF Dose Instruction: Take one tablet by mouth twice daily Rx Instructions: Take one tablet by mouth twice daily albuterol sulfate [Ventolin HFA] 90 mcg/actuation HFA aerosol inhaler 2 puff INHALATION Q6H PRN (Reason: shortness of breath or wheezing) Qty: 8.5 5RF methocarbamol 750 mg tablet 750 mg PO BID PRN (Reason: muscle spasm) 30 Days Qty: 60 5RF pregabalin 75 mg capsule 75 mg PO BID 30 Days Qty: 60 2RF (DME) Depend Underwear For Women [facility] See Rx Instructions .Route Qty: 360 11RF Rx Instructions: As directed, 12 daily miscellaneous medical supply [facility] 1 ea miscellaneous ONCE Qty: 1 0RF Rx Instructions: Patient requests wheelchair repair loratadine 10 mg tablet See Rx Instructions .ROUTE .COMPLEX Qty: 90 3RF Dose Instruction: TAKE ONE TABLET BY MOUTH DAILY AT BEDTIME NEEDED FOR ALLERGY SYMPTOMS Rx Instructions: TAKE ONE TABLET BY MOUTH DAILY AT BEDTIME NEEDED FOR ALLERGY SYMPTOMS aspirin 81 mg tablet,delayed release (DR/EC) See Rx Instructions .ROUTE .COMPLEX Qty: 90 3RF Dose Instruction: TAKE ONE TABLET BY MOUTH EVERY DAY Rx Instructions: TAKE ONE TABLET BY MOUTH EVERY DAY docusate sodium 100 mg capsule See Rx Instructions .ROUTE .COMPLEX Qty: 360 0RF Dose Instruction: TAKE TWO CAPSULES BY MOUTH TWICE A DAY FOR 30 DAYS Rx Instructions: TAKE TWO CAPSULES BY MOUTH TWICE A DAY FOR 30 DAYS diltiazem HCl 120 mg capsule,extended release 12 hr See Rx Instructions .ROUTE .COMPLEX Qty: 60 0RF Dose Instruction: TAKE ONE CAPSULE BY MOUTH TWICE A DAY Rx Instructions: TAKE ONE CAPSULE BY MOUTH TWICE A DAY miscellaneous medical supply Misc See Rx Instructions miscellaneous .COMPLEX Qty: 1 0RF Rx Instructions: wheelchair repair miscellaneous; (DME) pen needle, diabetic [BD Ultra-Fine Mini Pen Needle] 31 gauge x 3/16 needle See Rx Instructions .ROUTE .COMPLEX Qty: 100 0RF Dose Instruction: Needs Directions Rx Instructions: Needs Directions potassium chloride 20 mEq tablet,ER particles/crystals See Rx Instructions .ROUTE .COMPLEX Qty: 180 0RF Dose Instruction: TAKE ONE TABLET BY MOUTH TWICE A DAY FOR 90 DAYS Rx Instructions: TAKE ONE TABLET BY MOUTH TWICE A DAY FOR 90 DAYS bupropion HCl [Wellbutrin XL] 300 mg tablet extended release 24 hr 300 mg PO QAM 30 Days Qty: 30 1RF risperidone 0.5 mg tablet 0.5 mg PO BID Qty: 60 1RF cholecalciferol (vitamin D3) 1,250 mcg (50,000 unit) capsule 50,000 unit PO .Weekly 60 Days Qty: 10 3RF Rx Instructions: ON MONDAYS metformin 1,000 mg tablet extended release 24hr 1,000 mg PO BID Qty: 180 3RF Rx Instructions: Take one tablet by mouth twice a day. cyclobenzaprine 5 mg tablet See Rx Instructions .ROUTE .COMPLEX Qty: 60 5RF Dose Instruction: Take two tablets by mouth nightly Rx Instructions: Take two tablets by mouth nightly famotidine 20 mg tablet See Rx Instructions .ROUTE .COMPLEX Qty: 60 5RF Dose Instruction: Take one tablet by mouth twice daily Rx Instructions: Take one tablet by mouth twice daily furosemide 40 mg tablet See Rx Instructions .ROUTE .COMPLEX Qty: 30 5RF Dose Instruction: Take one tablet by mouth twice daily Rx Instructions: Take one tablet by mouth twice daily, 8AM and Noon suvorexant 20 mg tablet 20 mg PO BEDTIME Qty: 30 2RF diclofenac sodium 50 mg tablet,delayed release (DR/EC) 50 mg PO BID PRN (Reason: pain) 30 Days Qty: 60 2RF Rx Instructions: with food duloxetine 60 mg capsule,delayed release(DR/EC) See Rx Instructions .ROUTE .COMPLEX Qty: 30 0RF Dose Instruction: Take one capsule by mouth daily Rx Instructions: Take one capsule by mouth daily pramipexole 0.25 mg tablet See Rx Instructions .ROUTE .COMPLEX Qty: 30 2RF Dose Instruction: TAKE ONE TABLET BY MOUTH DAILY AT BEDTIME Rx Instructions: TAKE ONE TABLET BY MOUTH DAILY AT BEDTIME insulin lispro [Humalog KwikPen Insulin] 100 unit/mL insulin pen See Rx Instructions .ROUTE .COMPLEX Qty: 15 2RF Dose Instruction: INJECT 6 UNITS THREE TIMES A DAY +SS 140-175 1UNIT,176-200 2 UNITS,201-250 3 UNITS,251-299-5 UNITS,300 7UNITS. MAX DAILY DOSE 39 UNITS Rx Instructions: INJECT 6 UNITS THREE TIMES A DAY +SS 140-175 1UNIT,176-200 2 UNITS,201-250 3 UNITS,251-299-5 UNITS,300 7UNITS. MAX DAILY DOSE 39 UNITS multivitamin Tablet 1 tab PO DAILY Qty: 0 ascorbic acid (vitamin C) [Vitamin C] 1,000 mg Tablet 1,000 mg PO DAILY Qty: 0 Discharge Orders: Discharge ED (Routine); Ordered 12/14/21 Ordered By: Claudia Ram Referrals: Kristine Rodriguez MD [Primary Care Provider] - Discharge Diet: Advance as tolerated Discharge Activity: Resume usual activity Patient Instructions: Dyspnea (ED) Coding Level of Care Code ED Refining Still Operator for Urvashi Fwd Exam Comprehensive
[2021-12-14 02:40] LABS: Basophils % 0.3 %; Eosinophils # 0.2 10^3/uL (0.0-0.8); Eosinophils % 1.8 %; Hemoglobin 14.2 g/dL (11.5-15.3); Lymphocytes # 2.8 10^3/uL (0.8-4.8); Mean Corpuscular HGB Conc 32.3 g/dL (30.0-36.0); Mean Corpuscular Hemoglobin 29.1 pg (28.0-34.0); Mean Corpuscular Volume 90.2 fl (81-99); Mean Platelet Volume 12.7 fL (7.4-10.4); Monocytes # 0.9 10^3/uL (0.2-0.9); Monocytes % 10.5 %; Neutrophils # 4.81 10^3/uL (1.8-7.7); Neutrophils % 55.2 %; Nucleated Red Blood Cells % 0 %; Platelet Count 164 10^3/cmm (130-400); Red Blood Count 4.88 10^6/uL (4.1-5.3); Red Cell Distribution Width 15.5 % (12.1-15.1); White Blood Count 8.7 10^3/uL (4.0-10.0)
[2021-12-14] MEDS: acetaminophen 325 mg Tablet 650 MG PO (02:50)
[2021-12-14] MEDS: ipratropium-albuterol 3 mL Neb INHALATION (03:05)
[2021-12-14 03:07] LABS: Lactic Sepsis W/Reflex 1.5 mmol/L (0.5-2.2)
[2021-12-14 03:08] LABS: SARS Covid-2 Antigen Negative (Negative)
[2021-12-14 03:24] LABS: Alanine Aminotransferase 45 U/L (0-33); Albumin Level 3.1 g/dL (3.5-5.2); Alkaline Phosphatase 128 IU/L (35-105); Anion Gap 13.2 (5-19); Aspartate Amino Transferase 37 U/L (0-32); Blood Urea Nitrogen 12 mg/dL (8-23); Calcium 8.2 mg/dL (8.5-10.5); Carbon Dioxide 27 mmol/L (22-29); Chloride 101 mmol/L (98-107); Globulin 2.8 g/dL (1.3-4.6); Glomerular Filtration Rate 124.2 mL/min (90-130); Glucose 185 mg/dL (65-115); NT Pro B Type Natriuretic Pept 884 pg/mL (0-125); Osmolality Calculated 289 mOsm/kg (285-295); Potassium 4.2 mmol/L (3.5-5.1); Sodium 137 mmol/L (136-145); Total Bilirubin 0.7 mg/dL (0.15-1.2); Total Protein 5.9 g/dL (6.6-8.7)
[2021-12-14 03:50] LABS: Troponin(5th) Baseline 11 ng/L (0-10)
--- NOTE | 2021-12-14 06:16 | ECG_ITS ---
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 Measurements Intervals [place] Rate: 103 P: 58 CT: 146 QRS: -9 QRSD: 145 T: 143 QT: 386 QTc: 508 Interpretive Statements SINUS TACHYCARDIA POSSIBLE LEFT ATRIAL ENLARGEMENT [-0.1mV P-WAVE IN V1/V2] LEFT BUNDLE BRANCH BLOCK [120+ ms QRS DURATION, 80+ ms Q/S IN V1/V2, 85+ ms R IN I/aVL/V5/V6] Compared to ECG 12/14/2021 02:25:53 Left bundle-branch block now present Atrial flutter no longer present ST (T wave) deviation no longer present Electronically Signed On 12-14-2021 17:44:01 CDT by Kevon Ge M.D. [id number]
== END 2021-12-14 06:32 | disposition home or self-care (01) ==
PROVIDERS: Emergency Provider Emergency Medicine; PCP Family Medicine
DX: R07.89 Other chest pain (principal); R06.00 Dyspnea, unspecified; Z79.01 Long term (current) use of anticoagulants; Z79.84 Long term (current) use of oral hypoglycemic drugs; Z79.02 Long term (current) use of antithrombotics/antiplatelets; Z79.82 Long term (current) use of aspirin; Z79.4 Long term (current) use of insulin; F17.210 Nicotine dependence, cigarettes, uncomplicated; I25.10 Atherosclerotic heart disease of native coronary artery without angina pectoris; J44.9 Chronic obstructive pulmonary disease, unspecified; E11.9 Type 2 diabetes mellitus without complications; E78.5 Hyperlipidemia, unspecified; I10 Essential (primary) hypertension; Z20.822 Contact with and (suspected) exposure to COVID-19
CPT/HCPCS: 71045; 80053; 83605; 83880; 84484; 85025; 87426; 93005; 94640; 94664; 96374; 99285; J2930

== ENCOUNTER → 2021-12-15 10:56 | Outpatient (BNVA) | payer MEDICARE, MEDICAID, SELFPAY ==
[2021-08-26 17:10] VITALS: BP 146/84; BMI 43.9
== END ==
PROVIDERS: PCP Family Medicine; Visit Provider Emergency Medicine
DX: R10.9 Unspecified abdominal pain (principal); R11.0 Nausea; R06.00 Dyspnea, unspecified; I25.10 Atherosclerotic heart disease of native coronary artery without angina pectoris; E11.9 Type 2 diabetes mellitus without complications; I50.9 Heart failure, unspecified; Z87.19 Personal history of other diseases of the digestive system
CPT/HCPCS: 83690; 85025

== ENCOUNTER 2021-12-16 17:18 | Inpatient (IN) | payer MEDICARE, MEDICAID, SELFPAY ==
[2021-08-26 17:10] VITALS: BP 146/84; BMI 43.9
[2021-12-16] VITALS (8 sets, daily range): BP systolic 131–180; BP diastolic 22–126; PULSE 77–115; RESP 16–18; TEMP 36.7–36.8; O2SAT 90–937; BMI 45.4
--- NOTE | 2021-12-16 17:49 | CTR_ITS ---
PROCEDURE INFORMATION: Exam: CT Abdomen And Pelvis Without Contrast Exam date and time: 12/16/2021 7:39 PM Age: 66 years old Clinical indication: Abdominal pain; Generalized; Prior surgery; Surgery date: 6+ months; Surgery type: Appx, hyst, pasquale; Additional info: Abd pain TECHNIQUE: Imaging protocol: Computed tomography of the abdomen and pelvis without contrast. Radiation optimization: All CT scans at this facility use at least one of these dose optimization techniques: automated exposure control; mA and/or kV adjustment per patient size (includes targeted exams where dose is matched to clinical indication); or iterative reconstruction. COMPARISON: CR XR pelvis 1-2V* [id number] 10/08/2020 9:39 AM RADIATION DOSE METRICS: Total DLP (mGy-cm): 1422.14 FINDINGS: Limitations: The absence of intravenous contrast lessens the sensitivity of this study for solid organ abnormalities. Liver: There is a diffuse decrease in hepatic parenchymal density, consistent with mild fatty infiltration. There is no focal abnormality within the liver. Gallbladder and bile ducts: The gallbladder is normal. Pancreas: The pancreas is normal. Spleen: The spleen is normal. Adrenal glands: The adrenal glands are normal. Kidneys and ureters: 2 cm simple cyst lower pole right kidney. The left kidney is normal. There is no evidence of hydronephrosis. There is no evidence of renal or ureteral calcifications. Stomach and bowel: There is no evidence of colitis/diverticulitis. There is moderate fluid distention of the stomach. There is fluid dilatation of multiple loops of proximal small bowel. Distal small bowel is nondilated. The exact point of transition is not identified. Findings are compatible with small bowel obstruction. Appendix: Not identified Intraperitoneal space: There is a small amount of free fluid in the mid abdomen. Vasculature: Unremarkable. No abdominal aortic aneurysm. Lymph nodes: Unremarkable. No enlarged lymph nodes. Urinary bladder: Unremarkable as visualized. Reproductive: There has been a hysterectomy. Bones/joints: There is decreased height of the L5-S1 disc space with grade 1 spondylolisthesis and bilateral L5 spondylolysis. Soft tissues: There is small umbilical hernia containing fat. CT/CT abdomen pelvis wo con [id number] IMPRESSION: Small bowel obstruction. COMMENTS: Consistent with the [employer] [place] [employer]'s Incidental Findings Committee white paper (J Am Dolores Radiol 2018): Any incidental renal lesion less than 1 cm or classified as too small to characterize, or any incidental cystic renal lesion characterized as simple-appearing, is likely benign. No follow-up imaging is recommended for these lesions per consensus recommendations based on imaging criteria.
[2021-12-16 18:25] LABS: Basophils % 0.4 %; Eosinophils # 0.1 10^3/uL (0.0-0.8); Eosinophils % 0.7 %; Hematocrit 46.9 % (37.0-47.0); Hemoglobin 15.2 g/dL (11.5-15.3); Lymphocytes # 1.9 10^3/uL (0.8-4.8); Lymphocytes % 20.9 %; Mean Corpuscular HGB Conc 32.4 g/dL (30.0-36.0); Mean Corpuscular Hemoglobin 29.5 pg (28.0-34.0); Mean Corpuscular Volume 91.1 fl (81-99); Mean Platelet Volume 11.9 fL (7.4-10.4); Monocytes % 10.9 %; Neutrophils % 66.7 %; Nucleated Red Blood Cells % 0 %; Platelet Count 235 10^3/cmm (130-400); Red Blood Count 5.15 10^6/uL (4.1-5.3); Red Cell Distribution Width 15.1 % (12.1-15.1); White Blood Count 9.2 10^3/uL (4.0-10.0)
--- NOTE | 2021-12-16 18:26 | ED_ITS ---
HPI - Nausea/Vomiting/Diarrhea General: Chief complaint: Nausea/Vomiting/Diarrhea Stated complaint: N/V/D Time Seen by Provider: 12/16/21 17:31 Source: patient Mode of arrival: ambulatory Limitations: no limitations History of Present Illness: 66-year female states she been having nausea vomiting diarrhea along with abdominal pain states the vomiting been on for 4 days with abdominal pain started today the pain is diffuse rates it a 2 out of 10 she denies any worsening proving factors. She denies any fever. Associated nausea: No Associated symtoms: Denies chest pain, dysuria, headache(s) or nausea Review of Systems Const: Denies: fever(s), chills, body aches or change in appetite Eyes: Denies: blurry vision or eye discomfort ENMT: Denies: throat pain or dental pain Card: Denies: chest pain Resp: Denies: dyspnea GI: Denies: abdominal pain, nausea, vomiting or diarrhea : Denies: dysuria Musc: Denies: neck pain or back pain Skin/Breast: Denies: rash Neuro: Denies: headache(s) Psych: Denies: depression Jagjit/Lymph: Denies: easy bruising All/Imm: Denies: urticaria PFSH ED PFSH: Medical History Atypical chest pain Bipolar depression CAD (coronary artery disease) Chest pain Chronic headache Chronic pain syndrome Due to her weight and other comorbidities I do not think that there is much that pain management would be able to do. They can do localized injections or treatments on specific joints but she would never be a surgical candidate. Congestive heart failure Constipation, chronic COPD (chronic obstructive pulmonary disease) Diabetes mellitus type 2 in obese DM type 2 (diabetes mellitus, type 2) Fibromyalgia Generalized anxiety disorder GERD (gastroesophageal reflux disease) History of colonic diverticulitis Hyperlipemia Hypertension, benign Insomnia Major depressive disorder, recurrent, moderate Mixed stress and urge urinary incontinence Nicotine dependence, cigarettes, with other nicotine-induced disorders NONA (obstructive sleep apnea) Uses CPAP Overactive bladder Panic disorder [episodic paroxysmal anxiety] Paroxysmal A-fib Paroxysmal atrial fibrillation (~08/2020) Paroxysmal SVT (supraventricular tachycardia) Peripheral Vascular Disease RLS (restless legs syndrome) Surgical History H/O thyroidectomy H/O: hysterectomy Hx of cholecystectomy S/P appendectomy Family History Mother , at age 75 Hypertension Father , at age 87 Hypertension Denies family history of Lung disease Stroke Social History Smoking and tobacco status: current every day smoker cigarettes Packs smoked per day: 1 Years cigarettes smoked: 44 Second hand smoke exposure: No Alcohol intake: never Adopted: No Caregiver/support person: No Lives independently: Yes Household members: none Housing: Apartment Marital status: / Number of children: 8 Number of grandchildren: 14 Highest education level completed: Some College, No Degree service: No Current occupational status: disabled Pets and animals: Yes Pets & animals: dog(s) History of recent travel: No Leisure activites: art, music, reading and other Sexually active: No Current gender identity: Female Lilliam/Latter-Day: Spiritism Special lilliam needs: No Agree to transfusion: Yes Financial difficulty paying for basics: Not Very Hard Female Reproductive History: Para: 8 Spontaneous abortions: No Physical Exam Const: COMMON NORMALS: no acute distress, patient oriented x3 and healthy a ppearing HENMT: COMMON NORMALS: normocephalic and atraumatic HEAD & SCALP: normocephalic and atraumatic Eye: COMMON NORMALS: Equal, round and reactive pupils present and EOMs intact bilaterally PUPIL: Yes Equal, round and reactive pupils present Neck/C-Spine: COMMON NORMALS: full ROM and supple Chest: COMMONS NORMALS: normal inspection of the chest and normal palpation of entire chest wall Resp: COMMON NORMALS: normal respiratory effort, No retractions, No use of accessory muscles and clear to auscultation bilaterally AUSCULTATION: clear to auscultation bilaterally Cardio: COMMON NORMALS: regular rate, regular rhythm and No murmurs present (Cardio) RATE: regular rate RHYTHM: regular rhythm GI: COMMON NORMALS: Normal to inspection, nondistended, normoactive bowel sounds present, Soft to palpation, non-tender and no masses PALPATION: Yes Soft to palpation Extremity: COMMON NORMALS: normal to inspection and full ROM Neuro: COMMON NORMALS: patient oriented x3, moves all extremities and no focal motor deficits Psych: COMMON NORMALS: mental status grossly normal, Normal thought process p resent and cooperative THOUGHT PROCESS: Normal thought process present Skin: COMMON NORMALS: no rashes or lesions noted and no wounds GENERAL SKIN EXAM: no rashes or lesions noted Course Vital Signs: Vital signs: Vital Signs Temperature 98.2 F 12/16/21 18:04 Pulse Rate 93 12/16/21 18:04 Respiratory Rate 16 12/16/21 18:34 Blood Pressure 180/85 12/16/21 18:04 Pulse Oximetry 96 12/16/21 18:34 Oxygen Delivery Me thod 12/16/21 18:04 MDM - Nausea/Vomiting/Diarrhea Medical Decision Making Patient presents here with a small bowel obstruction will place NG tube I spoke to hospitalist along with surgeon will admit at this time she has been stable while here. Lab Data : 12/16/21 18:20 12/16/21 18:20 Radiology Impressions Abdomen/Pelvis CT 12/16/21 17:49 IMPRESSION: Small bowel obstruction. COMMENTS: Consistent with the [employer]'s Incidental Findings Committee white paper (J Am Dolores Radiol 2018): Any incidental renal lesion less than 1 cm or classified as too small to characterize, or any incidental cystic renal lesion characterized as simple-appearing, is likely benign. No follow-up imaging is recommended for these lesions per consensus recommendations based on imaging criteria. ADDENDUM: 12/16/212019 Addendum: THIS REPORT CONTAINS FINDINGS THAT MAY BE CRITICAL TO PATIENT CARE. The findings were verbally communicated via telephone conference with KATRINA LI at 8:19 PM CDT on 12/16/2021. The findings were acknowledged and understood. Laboratory Results WBC 9.2 10^3/uL (4.0-10.0) 12/16/21 18:20 RBC 5.15 10^6/uL (4.1-5.3) 12/16/21 18:20 Hgb 15.2 g/dL (11.5-15.3) 12/16/21 18:20 Hct 46.9 % (37.0-47.0) 12/16/21 18:20 MCV 91.1 fl (81-99) 12/16/21 18:20 MCH 29.5 pg (28.0-34.0) 12/16/21 18:20 MCHC 32.4 g/dL (30.0-36.0) 12/16/21 18:20 RDW 15.1 % (12.1-15.1) 12/16/21 18:20 Plt Count 235 10^3/cmm (130-400) 12/16/21 18:20 MPV 11.9 fL (7.4-10.4) H 12/16/21 18:20 Neut % (Auto) 66.7 % 12/16/21 18:20 Lymph % (Auto) 20.9 % 12/16/21 18:20 [place] % (Auto) 10.9 % 12/16/21 18:20 Eos % (Auto) 0.7 % 12/16/21 18:20 Baso % (Auto) 0.4 % 12/16/21 18:20 Neut # (Auto) 6.10 10^3/uL (1.8-7.7) 12/16/21 18:20 Lymph # (Auto) 1.9 10^3/uL (0.8-4.8) 12/16/21 18:20 [place] # (Auto) 1.0 10^3/uL (0.2-0.9) H 12/16/21 18:20 Eos # (Auto) 0.1 10^3/uL (0.0-0.8) 12/16/21 18:20 Baso # (Auto) 0.0 10^3/uL (0.0-0.1) 12/16/21 18:20 Nucleated RBC % (auto) 0 % 12/16/21 18:20 Nucleated RBCs # 0.0 /100WBC 12/16/21 18:20 PT 13.80 SECONDS (12.1-14.9) 12/16/21 18:20 INR 1.03 (0.8-1.2) 12/16/21 18:20 Sodium 140 mmol/L (136-145) 12/16/21 18:20 Potassium 4.2 mmol/L (3.5-5.1) 12/16/21 18:20 Chloride 100 mmol/L (98-107) 12/16/21 18:20 Carbon Dioxide 29 mmol/L (22-29) 12/16/21 18:20 Anion Gap 15.2 (5-19) 12/16/21 18:20 BUN 15 mg/dL (8-23) 12/16/21 18:20 Creatinine 0.4 mg/dL (0.5-0.9) L 12/16/21 18:20 GFR Calculation 160.7 mL/min (90-130) H 12/16/21 18:20 Glucose 237 mg/dL (65-115) H 12/16/21 18:20 Calculated Osmolality 299 mOsm/kg (285-295) H 12/16/21 18:20 Calcium 9.6 mg/dL (8.5-10.5) 12/16/21 18:20 Total Bilirubin 0.6 mg/dL (0.15-1.2) 12/16/21 18:20 AST 33 U/L (0-32) H 12/16/21 18:20 ALT 41 U/L (0-33) H 12/16/21 18:20 Alkaline Phosphatase 138 U/L (35-105) H 12/16/21 18:20 Total Protein 6.5 g/dL (6.6-8.7) L 12/16/21 18:20 Albumin 3.9 g/dL (3.5-5.2) 12/16/21 18:20 Globulin 2.6 g/dL (1.3-4.6) 12/16/21 18:20 Lipase 17 U/L (13-60) 12/16/21 18:20 Discharge Plan Discharge Condition: Stable Prescriptions: No Action melatonin 5 mg capsule 10 mg PO BEDTIME PRN (Reason: insomnia) (DME) Blood Glucose Test Strip See Rx Instructions .ROUTE .MEDSUPPLY Qty: 50 11RF Rx Instructions: Brand/type to go with meter per insurance coverage (DME) miscellaneous medical supply Misc See Rx Instructions .Route Qty: 1 0RF Rx Instructions: use 1-2l at night nitroglycerin 0.4 mg tablet, sublingual 0.4 mg SUBLINGUAL Q5M PRN (Reason: Chest Pain) Qty: 30 2RF insulin glargine 100 unit/mL (3 mL) insulin pen 32 unit SUBCUT QAM metoprolol tartrate 75 mg tablet 75 mg PO Q12H 30 Days Qty: 60 5RF albuterol sulfate [Ventolin HFA] 90 mcg/actuation HFA aerosol inhaler 2 puff INHALATION Q6H PRN (Reason: shortness of breath or wheezing) Qty: 8.5 5RF methocarbamol 750 mg tablet 750 mg PO BID PRN (Reason: muscle spasm) 30 Days Qty: 60 5RF pregabalin 75 mg capsule 75 mg PO BID 30 Days Qty: 60 2RF ciprofloxacin HCl 500 mg tablet 500 mg PO BID 5 Days Qty: 10 0RF ondansetron 4 mg tablet,disintegrating 4 mg PO Q6H PRN (Reason: nausea and vomiting) Qty: 12 0RF Rx Instructions: 340b please (DME) Depend Underwear For Women XL Misc See Rx Instructions .Route Qty: 360 11RF Rx Instructions: As directed, 12 daily (DME) pen needle, diabetic [BD Ultra-Fine Mini Pen Needle] 31 gauge x 3/16 needle See Rx Instructions .ROUTE .COMPLEX Qty: 100 0RF Dose Instruction: Needs Directions Rx Instructions: Needs Directions bupropion HCl [Wellbutrin XL] 300 mg tablet extended release 24 hr 300 mg PO QAM 30 Days Qty: 30 1RF risperidone 0.5 mg tablet 0.5 mg PO BID Qty: 60 1RF cholecalciferol (vitamin D3) 1,250 mcg (50,000 unit) capsule 50,000 unit PO .Weekly 60 Days Qty: 10 3RF Rx Instructions: ON MONDAYS metformin 1,000 mg tablet extended release 24hr 1,000 mg PO BID Qty: 180 3RF suvorexant 20 mg tablet 20 mg PO BEDTIME Qty: 30 2RF diclofenac sodium 50 mg tablet,delayed release (DR/EC) 50 mg PO BID PRN (Reason: pain) 30 Days Qty: 60 2RF Rx Instructions: with food insulin lispro [Humalog KwikPen Insulin] 100 unit/mL insulin pen See Rx Instructions .ROUTE .COMPLEX Qty: 15 2RF Dose Instruction: INJECT 6 UNITS THREE TIMES A DAY +SS 140-175 1UNIT,176-200 2 UNITS,201-250 3 UNITS,251-299-5 UNITS,300 7UNITS. MAX DAILY DOSE 39 UNITS Rx Instructions: INJECT 6 UNITS THREE TIMES A DAY +SS 140-175 1UNIT,176-200 2 UNITS,201-250 3 UNITS,251-299-5 UNITS,300 7UNITS. MAX DAILY DOSE 39 UNITS multivitamin Tablet 1 tab PO DAILY Qty: 0 ascorbic acid (vitamin C) [Vitamin C] 1,000 mg Tablet 1,000 mg PO DAILY Qty: 0 furosemide 40 mg tablet 40 mg PO BID Rx Instructions: AT 8 AM AND NOON oxybutynin chloride 15 mg tablet extended release 24hr 15 mg PO DAILY clopidogrel 75 mg tablet 75 mg PO DAILY aspirin 81 mg tablet,delayed release (DR/EC) 81 mg PO DAILY potassium chloride 20 mEq tablet,ER particles/crystals 20 meq PO BID Rx Instructions: FOR 90 DAYS famotidine 20 mg tablet 20 mg PO BID buspirone 10 mg tablet 15 mg PO BID docusate sodium 100 mg capsule 200 mg PO BID pramipexole 0.25 mg tablet 0.25 mg PO BEDTIME loratadine 10 mg tablet 10 mg PO BEDTIME PRN (Reason: Allergy Symptoms) cyclobenzaprine 5 mg tablet 10 mg PO BEDTIME duloxetine 60 mg capsule,delayed release(DR/EC) 60 mg PO DAILY Eliquis 5 mg tablet 5 mg PO BID prednisone 50 mg tablet 50 mg PO DAILY Qty: 5 0RF Referrals: Kristine Rodriguez MD [Primary Care Provider] - Coding Level of Care Code ED [employer] for Chg Fwd Exam Comprehensive
[2021-12-16] MEDS: ondansetron 2 mg/ML SDV 2 mL 4 MG IVP (18:34)
[2021-12-16] MEDS: morphine 4 mg/mL SDV 1 mL IVP (18:34)
[2021-12-16 18:47] LABS: INR 1.03 (0.8-1.2)
[2021-12-16 18:51] LABS: Alanine Aminotransferase 41 U/L (0-33); Albumin Level 3.9 g/dL (3.5-5.2); Alkaline Phosphatase 138 U/L (35-105); Blood Urea Nitrogen 15 mg/dL (8-23); Calcium 9.6 mg/dL (8.5-10.5); Carbon Dioxide 29 mmol/L (22-29); Chloride 100 mmol/L (98-107); Globulin 2.6 g/dL (1.3-4.6); Glomerular Filtration Rate 160.7 mL/min (90-130); Glucose 237 mg/dL (65-115); Lipase 17 U/L (13-60); Osmolality Calculated 299 mOsm/kg (285-295); Sodium 140 mmol/L (136-145); Total Bilirubin 0.6 mg/dL (0.15-1.2); Total Protein 6.5 g/dL (6.6-8.7)
[2021-12-16 18:53] LABS: Anion Gap 15.2 (5-19); Aspartate Amino Transferase 33 U/L (0-32); Potassium 4.2 mmol/L (3.5-5.1)
--- NOTE | 2021-12-16 21:14 | P.HP_ITS ---
Providers/Chief Complaint Admitting Physician: Yonas Kelley MD Primary Care Provider: Kristine Rodriguez MD Chief Complaint: N/V/D History of Present Illness Lin Henao is a 66 year old female with a past medical treatment of insulin- dependent type 2 diabetes mellitus, paroxysmal atrial fibrillation on Eliquis, peripheral vascular disease, CAD, chronic pain, diabetic peripheral neuropathy, COPD, fibromyalgia, hyperlipidemia, hypertension, insomnia, major depressive disorder, restless leg syndrome, who presents [facility] due to abdominal pain, abdominal distention, lack of bowel movement since Tuesday. Patient tells me that since Tuesday she has had diffuse abdominal pain with abdominal distention, she tells that she did have 1 liquidy bowel movement a few days ago but it was fairly small. She is now passing gas from below, she feels very nauseous, having vomiting, inability to keep down solids and liquids. She does report multiple abdominal surgeries she had a appendectomy, hysterectomy, cholecystectomy,. Review of Systems Const: Denies: fever(s) Card: Denies: chest pain Resp: Denies: dyspnea GI: Reports: abdominal pain, nausea and vomiting Medications/Allergies Home Medications Medication Instructions Recorded Confirmed Last Taken Type ascorbic acid (vitamin C) 1,000 mg 1,000 mg PO DAILY ##0 10/09/20 12/16/21 12/16/21 History tablet (Vitamin C) multivitamin 1 tab PO DAILY ##0 10/09/20 12/16/21 12/16/21 History melatonin 5 mg capsule 10 mg PO BEDTIME PRN insomnia 10/27/20 12/16/21 12/15/21 History blood sugar diagnostic (Blood #50 ea 04/02/21 12/16/21 Unknown Rx Glucose Test) miscellaneous medical supply #1 ea 04/06/21 12/16/21 Unknown Rx diaper,brief,adult,disposable #360 ea 04/07/21 12/16/21 Unknown Rx (Depend Underwear For Women XL) nitroglycerin 0.4 mg sublingual 0.4 mg sublingual Q5M PRN Chest 05/08/21 12/16/21 Unknown Rx tablet Pain #30 tabs metoprolol tartrate 75 mg tablet 75 mg PO Q12H 30 days #60 tabs 08/27/21 12/16/21 12/16/21 Rx pen needle, diabetic 31 gauge x ##100 10/06/21 12/16/21 Unknown Rx 07/15 (BD Ultra-Fine Mini Pen Needle) bupropion HCl 300 mg 24 hr tablet, 300 mg PO QAM 30 days #30 tabs 10/09/21 12/16/21 12/16/21 Rx extended release (Wellbutrin XL) risperidone 0.5 mg tablet 0.5 mg PO BID #60 tabs 10/09/21 12/16/21 12/16/21 Rx albuterol sulfate 90 mcg/actuation 2 puff inhalation Q6H PRN 10/14/21 12/16/21 Unknown Rx aerosol inhaler (Ventolin HFA) shortness of breath or wheezing #8.5 grams methocarbamol 750 mg tablet 750 mg PO BID PRN muscle spasm 30 10/14/21 12/16/21 12/16/21 Rx days #60 tabs pregabalin 75 mg capsule 75 mg PO BID 30 days #60 caps 10/14/21 12/16/21 12/16/21 Rx cholecalciferol (vitamin D3) 1,250 50,000 unit PO .Weekly 2 months 10/16/21 12/16/21 12/14/21 Rx mcg (50,000 unit) capsule #10 caps metformin 1,000 mg tablet,extended 1,000 mg PO BID #180 tabs 10/16/21 12/16/21 12/16/21 Rx release 24hr insulin glargine 100 unit/mL (3 32 unit SUBCUT QAM 10/27/21 12/16/21 12/16/21 History mL) subcutaneous pen diclofenac sodium 50 mg 50 mg PO BID PRN pain 30 days #60 10/29/21 12/16/21 Unknown Rx tablet,delayed release tabs suvorexant 20 mg tablet 20 mg PO BEDTIME #30 tabs 10/29/21 12/16/21 12/15/21 Rx insulin lispro 100 unit/mL See Rx Instructions .Route 12/12/21 12/16/21 12/16/21 Rx subcutaneous pen (Humalog KwikPen .COMPLEX #15 mL (U-100) Insulin) prednisone 50 mg tablet 50 mg PO DAILY #5 tabs 12/14/21 12/16/21 12/16/21 Rx ciprofloxacin HCl 500 mg tablet 500 mg PO BID 5 days #10 tabs 12/15/21 12/16/21 Unknown Rx ondansetron 4 mg disintegrating 4 mg PO Q6H PRN nausea and 12/15/21 12/16/21 Unknown Rx tablet vomiting #12 tabs apixaban 5 mg tablet (Eliquis) 5 mg PO BID 12/16/21 12/16/21 12/16/21 History aspirin 81 mg tablet,delayed 81 mg PO DAILY 12/16/21 12/16/21 12/16/21 History release buspirone 10 mg tablet 15 mg PO BID 12/16/21 12/16/21 12/16/21 History clopidogrel 75 mg tablet 75 mg PO DAILY 12/16/21 12/16/21 12/16/21 History cyclobenzaprine 5 mg tablet 10 mg PO BEDTIME 12/16/21 12/16/21 12/15/21 History docusate sodium 100 mg capsule 200 mg PO BID 12/16/21 12/16/21 12/16/21 History duloxetine 60 mg capsule,delayed 60 mg PO DAILY 12/16/21 12/16/21 12/16/21 History release famotidine 20 mg tablet 20 mg PO BID 12/16/21 12/16/21 12/16/21 History furosemide 40 mg tablet 40 mg PO BID 12/16/21 12/16/21 12/16/21 History loratadine 10 mg tablet 10 mg PO BEDTIME PRN Allergy 12/16/21 12/16/21 12/15/21 History Symptoms oxybutynin chloride 15 mg 15 mg PO DAILY 12/16/21 12/16/21 12/16/21 History tablet,extended release 24 hr potassium chloride 20 mEq 20 meq PO BID 12/16/21 12/16/21 12/16/21 History tablet,extended release(part/cryst) pramipexole 0.25 mg tablet 0.25 mg PO BEDTIME 12/16/21 12/16/21 12/15/21 History Allergies Allergy/AdvReac Type Severity Reaction Status Date / Time propoxyphene [From Darvon] Allergy Unknown Unknown Verified 12/16/21 20:21 fluoxetine [From Prozac] AdvReac Severe ADR-Halluci Verified 12/16/21 20:[facility] PFS Acute PFSH: Medical History Atypical chest pain Bipolar depression CAD (coronary artery disease) Chest pain Chronic headache Chronic pain syndrome Due to her weight and other comorbidities I do not think that there is much that pain management would be able to do. They can do localized injections or treatments on specific joints but she would never be a surgical candidate. Congestive heart failure Constipation, chronic COPD (chronic obstructive pulmonary disease) Diabetes mellitus type 2 in obese DM type 2 (diabetes mellitus, type 2) Fibromyalgia Generalized anxiety disorder GERD (gastroesophageal reflux disease) History of colonic diverticulitis Hyperlipemia Hypertension, benign Insomnia Major depressive disorder, recurrent, moderate Mixed stress and urge urinary incontinence Nicotine dependence, cigarettes, with other nicotine-induced disorders NONA (obstructive sleep apnea) Uses CPAP Overactive bladder Panic disorder [episodic paroxysmal anxiety] Paroxysmal A-fib Paroxysmal atrial fibrillation (~08/2020) Paroxysmal SVT (supraventricular tachycardia) Peripheral Vascular Disease RLS (restless legs syndrome) Surgical History H/O thyroidectomy H/O: hysterectomy Hx of cholecystectomy S/P appendectomy Family History Mother , at age 75 Hypertension Father , at age 87 Hypertension Denies family history of Lung disease Stroke Social History Smoking and tobacco status: current every day smoker cigarettes Packs smoked per day: 1 Years cigarettes smoked: 44 Second hand smoke exposure: No Alcohol intake: never Adopted: No Caregiver/support person: No Lives independently: Yes Household members: none Housing: Apartment Marital status: / Number of children: 8 Number of grandchildren: 14 Highest education level completed: Some College, No Degree service: No Current occupational status: disabled Pets and animals: Yes Pets & animals: dog(s) History of recent travel: No Leisure activites: art, music, reading and other Sexually active: No Current gender identity: Female Lilliam/Shinto: Anabaptist Special lilliam needs: No Agree to transfusion: Yes Financial difficulty paying for basics: Not Very Hard Female Reproductive History: Para: 8 Spontaneous abortions: No Vitals/I&O/Wt Last Vital Signs Temp 98.2 F 12/16/21 18:04 Pulse 93 12/16/21 18:04 Resp 16 12/16/21 18:34 BP 180/85 12/16/21 18:04 Pulse Ox 96 12/16/21 18:34 O2 Del Method 12/16/21 18:04 Weight last 48 hrs Weight 120.202 kg Physical Exam Const: COMMON NORMALS: no acute distress and patient oriented x3 HENMT: COMMON NORMALS: normocephalic HEAD & SCALP: normocephalic Eye: COMMON NORMALS: Equal, round and reactive pupils present and EOMs intact bilaterally Neck/C-Spine: COMMON NORMALS: no JVD Resp: COMMON NORMALS: normal respiratory effort, No retractions, No use of accessory muscles and clear to auscultation bilaterally AUSCULTATION: clear to auscultation bilaterally Cardio: COMMON NORMALS: no JVD, regular rate, regular rhythm, S1 normal heart sound present and S2 normal heart sound present RATE: regular rate RHYTHM: regular rhythm HEART SOUNDS: S1 normal heart sound present and S2 normal heart sound present GI: OTHER: Abdominal distention, decreased bowel sounds in all quadrants, diffuse abdominal pain, no guarding, no rebound, no rigidity Extremity: COMMON NORMALS: no pedal edema Neuro: COMMON NORMALS: patient oriented x3 Psych: COMMON NORMALS: mental status grossly normal Data : 12/16/21 18:20 12/16/21 18:20 A&P Assessment and plan (1) Small bowel obstruction: Status: Acute (2) Congestive heart failure: Status: Acute (3) DM type 2 (diabetes mellitus, type 2): Status: Acute (4) Paroxysmal atrial fibrillation: Status: Acute (5) Hypertension, benign: Status: Acute (6) Chronic anticoagulation: Status: Chronic (7) Major depressive disorder, recurrent, moderate: Status: Chronic (8) Fibromyalgia: Status: Chronic (9) Insomnia: Status: Chronic Qualifiers: Insomnia type: unspecified Qualified Code(s): G47.00 - Insomnia, unspecified (10) Peripheral Vascular Disease: Status: Chronic (11) CAD (coronary artery disease): Status: Chronic Qualifiers: Coronary Disease-Associated Artery/Lesion type: [place] artery [place] vs. transplanted heart: [place] heart Associated angina: without angina Qualified Code(s): I25.10 - Atherosclerotic heart disease of [place] coronary artery without angina pectoris Plan Small bowel obstruction -Plan -N.p.o. -IV fluids -Pain control, morphine -Zofran for nausea -Serial abdominal exam -General surgery on consult -Full code -Lovenox for DVT prophylaxis Paroxysmal atrial fibrillation, on Eliquis, hold Eliquis just in case surgery might be required switch to therapeutic Lovenox CAD, no history of stenting that I could see, on aspirin which we will continue, hold Plavix just in case surgery is required, Peripheral vascular disease aspirin, Lovenox Type 2 diabetes mellitus, low-dose sliding scale Insomnia, continue home medications Fibromyalgia, chronic pain, continue home medications Attestations Medical Necessity Statement*: Patient requires hospitalization, inpatient, greater than 2 minutes, for small bowel obstruction Coding Level of Care Code Acute [place] Specialist for [facility] Fwd Diagnoses Small bowel obstruction K56.609 Congestive heart failure I50.9 DM type 2 (diabetes mellitus, type 2) E11.9 Paroxysmal atrial fibrillation I48.0 Hypertension, benign I10 Chronic anticoagulation Z79.01 Major depressive disorder, recurrent, moderate F33.1 Fibromyalgia M79.7 Insomnia G47.00 Insomnia type: unspecified Peripheral Vascular Disease I73.9 CAD (coronary artery disease) I25.10 Coronary Disease-Associated Artery/Lesion type: [place] artery [place] vs. transplanted heart: [place] heart Associated angina: without angina
[2021-12-16 21:35] LABS: Bilirubin Urine 1+ (Negative); Blood Urine Neg (Negative); Glucose Urine UA 4+ (Normal); Ketones Urine 1+ (Negative); Nitrate Urine Positive (Negative); Protein Urine Neg (Negative); Specific Gravity, Urine 1.015 (1.005-1.030); Urine Appearance SL Hazy (CLEAR); Urine Color Yellow (Yellow); pH Urine 6.5 (5-7)
[2021-12-16 21:36] LABS: Add Urine Microscopic? YES; Leukocyte Esterase Urine Negative (Negative); Urobilinogen Urine 4 mg/dL (Negative)
[2021-12-16 21:39] LABS: WBC Urine 0-4 /hpf (0-5)
[2021-12-16 21:40] LABS: Bacteria Urine 4+ /hpf
[2021-12-16 21:41] LABS: Add Urine Culture? Yes
[2021-12-16] MEDS: midazolam 1 mg/mL INJ 2 mL IVP (22:10)
--- NOTE | 2021-12-16 22:22 | XRR_ITS ---
PROCEDURE INFORMATION: Exam: XR Chest Exam date and time: 12/16/2021 10:36 PM Age: 66 years old Clinical indication: Device placement; Ng tube; Additional info: Ng tube placement TECHNIQUE: Imaging protocol: Radiologic exam of the chest. Views: 1 view. COMPARISON: CR (CHEST, ) 12/14/2021 3:00 AM FINDINGS: Tubes, catheters and devices: Nasogastric tube is in place with its tip in the stomach. Lungs: Visualized portions of the lungs are clear. Pleural spaces: Unremarkable. No pleural effusion. No pneumothorax. Heart/Mediastinum: Heart is within normal limits of size. Bones/joints: Unremarkable. XR/XR chest 1V portable [id number] IMPRESSION: 1. No acute infiltrate. 2. NG tube tip is in the stomach.
[2021-12-16] MEDS: cyclobenzaprine 10 mg Tablet PO (23:55)
[2021-12-16] MEDS: dextrose 5%-sod chloride 0.9% 1,000 ML 75 ML IV (23:56)
[2021-12-16] MEDS: pantoprazole 40 mg SDV IVP (23:56)
[2021-12-16] MEDS: pramipexole 0.25 mg Tablet PO (23:56)
[2021-12-16] MEDS: enoxaparin 120 mg/0.8 mL Syringe SUBCUT (23:56)
[2021-12-16] MEDS: metoprolol tartrate 25 mg Tablet 75 MG PO (23:56)
[2021-12-17] VITALS (12 sets, daily range): BP systolic 121–166; BP diastolic 22–99; PULSE 89–120; RESP 16–23; TEMP 36.6–37.1; O2SAT 93–98
[2021-12-17 00:03] LABS: Estmated Average Glucose 209; Hemoglobin A1C 8.9 % (4.0-6.0)
[2021-12-17 00:10] LABS: Thyroid Stimulating Hormone 0.95 uIU/mL (0.27-4.20)
[2021-12-17 04:28] LABS: Basophils % 0.3 %; Eosinophils # 0.1 10^3/uL (0.0-0.8); Eosinophils % 1.4 %; Hematocrit 44.9 % (37.0-47.0); Lymphocytes # 2.1 10^3/uL (0.8-4.8); Lymphocytes % 22.1 %; Mean Corpuscular HGB Conc 31.2 g/dL (30.0-36.0); Mean Corpuscular Hemoglobin 28.6 pg (28.0-34.0); Mean Corpuscular Volume 91.8 fl (81-99); Mean Platelet Volume 11.8 fL (7.4-10.4); Monocytes # 1.1 10^3/uL (0.2-0.9); Monocytes % 11.7 %; Neutrophils # 6.07 10^3/uL (1.8-7.7); Neutrophils % 64.3 %; Nucleated Red Blood Cells % 0 %; Platelet Count 206 10^3/cmm (130-400); Red Blood Count 4.89 10^6/uL (4.1-5.3); White Blood Count 9.5 10^3/uL (4.0-10.0)
[2021-12-17 04:45] LABS: INR 1.11 (0.8-1.2)
[2021-12-17 05:05] LABS: Alanine Aminotransferase 34 U/L (0-33); Albumin Level 3.3 g/dL (3.5-5.2); Alkaline Phosphatase 118 U/L (35-105); Anion Gap 9.9 (5-19); Aspartate Amino Transferase 26 U/L (0-32); Blood Urea Nitrogen 11 mg/dL (8-23); C Reactive Protein 18.1 mg/L (0.0-4.9); Calcium 8.5 mg/dL (8.5-10.5); Carbon Dioxide 31 mmol/L (22-29); Chloride 103 mmol/L (98-107); Globulin 2.4 g/dL (1.3-4.6); Glomerular Filtration Rate 124.2 mL/min (90-130); Glucose 228 mg/dL (65-115); Magnesium 1.7 mg/dL (1.7-2.3); NT Pro B Type Natriuretic Pept 1151 pg/mL (0-125); Osmolality Calculated 297 mOsm/kg (285-295); Potassium 3.9 mmol/L (3.5-5.1); Sodium 140 mmol/L (136-145); Total Bilirubin 0.5 mg/dL (0.15-1.2); Total Protein 5.7 g/dL (6.6-8.7)
[2021-12-17] MEDS: buPROPion XL (24 HR) 300 mg Tablet PO (05:44)
--- NOTE | 2021-12-17 06:37 | PM.CONSULT ---
Providers/Reason For Consult Consulting Physician/Specialty*: Rene Masterson MD Reason for Consult*: Bowel obstruction Requesting Physician: Dr. Ram Attending Physician: Yonas Kelley MD Primary Care Provider: Kristine Rodriguez MD History of Present Illness History of Present Illness Ms. Lin Henao is a 66 year old female morbidly obese with multiple medical comorbidities, and history of multiple abdominal surgeries in the past, presents to the ER with worsening abdominal pain for the past few days and further work-up was done including but not limited to CT of the abdomen and pelvis and was found to have small bowel obstruction; Stomach and bowel: There is no evidence of colitis/diverticulitis. There is moderate fluid distention of the stomach. There is fluid dilatation of multiple loops of proximal small bowel. Distal small bowel is nondilated. The exact point of transition is not identified. Findings are compatible with small bowel obstruction. Appendix: Not identified General surgery was consulted for further evaluation and management. Patient reports that she is passing gas and had a bowel movement day before yesterday Review of Systems General: Reports: 10 or more systems reviewed and unremarkable except in HPI and below Medications/Allergies Home Medications Medication Instructions Recorded Confirmed Last Taken Type ascorbic acid (vitamin C) 1,000 mg 1,000 mg PO DAILY ##0 10/09/20 12/16/21 12/16/21 History tablet (Vitamin C) multivitamin 1 tab PO DAILY ##0 10/09/20 12/16/21 12/16/21 History melatonin 5 mg capsule 10 mg PO BEDTIME PRN insomnia 10/27/20 12/16/21 12/15/21 History blood sugar diagnostic (Blood #50 ea 04/02/21 12/16/21 Unknown Rx Glucose Test) miscellaneous medical supply #1 ea 04/06/21 12/16/21 Unknown Rx diaper,brief,adult,disposable #360 ea 04/07/21 12/16/21 Unknown Rx (Depend Underwear For Women XL) nitroglycerin 0.4 mg sublingual 0.4 mg sublingual Q5M PRN Chest 05/08/21 12/16/21 Unknown Rx tablet Pain #30 tabs metoprolol tartrate 75 mg tablet 75 mg PO Q12H 30 days #60 tabs 08/27/21 12/16/21 12/16/21 Rx pen needle, diabetic 31 gauge x ##100 10/06/21 12/16/21 Unknown Rx 07/15 (BD Ultra-Fine Mini Pen Needle) bupropion HCl 300 mg 24 hr tablet, 300 mg PO QAM 30 days #30 tabs 10/09/21 12/16/21 12/16/21 Rx extended release (Wellbutrin XL) risperidone 0.5 mg tablet 0.5 mg PO BID #60 tabs 10/09/21 12/16/21 12/16/21 Rx albuterol sulfate 90 mcg/actuation 2 puff inhalation Q6H PRN 10/14/21 12/16/21 Unknown Rx aerosol inhaler (Ventolin HFA) shortness of breath or wheezing #8.5 grams methocarbamol 750 mg tablet 750 mg PO BID PRN muscle spasm 30 10/14/21 12/16/21 12/16/21 Rx days #60 tabs pregabalin 75 mg capsule 75 mg PO BID 30 days #60 caps 10/14/21 12/16/21 12/16/21 Rx cholecalciferol (vitamin D3) 1,250 50,000 unit PO .Weekly 2 months 10/16/21 12/16/21 12/14/21 Rx mcg (50,000 unit) capsule #10 caps metformin 1,000 mg tablet,extended 1,000 mg PO BID #180 tabs 10/16/21 12/16/21 12/16/21 Rx release 24hr insulin glargine 100 unit/mL (3 32 unit SUBCUT QAM 10/27/21 12/16/21 12/16/21 History mL) subcutaneous pen diclofenac sodium 50 mg 50 mg PO BID PRN pain 30 days #60 10/29/21 12/16/21 Unknown Rx tablet,delayed release tabs suvorexant 20 mg tablet 20 mg PO BEDTIME #30 tabs 10/29/21 12/16/21 12/15/21 Rx insulin lispro 100 unit/mL See Rx Instructions .Route 12/12/21 12/16/21 12/16/21 Rx subcutaneous pen (Humalog KwikPen .COMPLEX #15 mL (U-100) Insulin) prednisone 50 mg tablet 50 mg PO DAILY #5 tabs 12/14/21 12/16/21 12/16/21 Rx ciprofloxacin HCl 500 mg tablet 500 mg PO BID 5 days #10 tabs 12/15/21 12/16/21 Unknown Rx ondansetron 4 mg disintegrating 4 mg PO Q6H PRN nausea and 12/15/21 12/16/21 Unknown Rx tablet vomiting #12 tabs apixaban 5 mg tablet (Eliquis) 5 mg PO BID 12/16/21 12/16/21 12/16/21 History aspirin 81 mg tablet,delayed 81 mg PO DAILY 12/16/21 12/16/21 12/16/21 History release buspirone 10 mg tablet 15 mg PO BID 12/16/21 12/16/21 12/16/21 History clopidogrel 75 mg tablet 75 mg PO DAILY 12/16/21 12/16/21 12/16/21 History cyclobenzaprine 5 mg tablet 10 mg PO BEDTIME 12/16/21 12/16/21 12/15/21 History docusate sodium 100 mg capsule 200 mg PO BID 12/16/21 12/16/21 12/16/21 History duloxetine 60 mg capsule,delayed 60 mg PO DAILY 12/16/21 12/16/21 12/16/21 History release famotidine 20 mg tablet 20 mg PO BID 12/16/21 12/16/21 12/16/21 History furosemide 40 mg tablet 40 mg PO BID 12/16/21 12/16/21 12/16/21 History loratadine 10 mg tablet 10 mg PO BEDTIME PRN Allergy 12/16/21 12/16/21 12/15/21 History Symptoms oxybutynin chloride 15 mg 15 mg PO DAILY 12/16/21 12/16/21 12/16/21 History tablet,extended release 24 hr potassium chloride 20 mEq 20 meq PO BID 12/16/21 12/16/21 12/16/21 History tablet,extended release(part/cryst) pramipexole 0.25 mg tablet 0.25 mg PO BEDTIME 12/16/21 12/16/21 12/15/21 History Allergies Allergy/AdvReac Type Severity Reaction Status Date / Time propoxyphene [From Darvon] Allergy Unknown Unknown Verified 12/16/21 20:21 fluoxetine [From Prozac] AdvReac Severe ADR-Halluci Verified 12/16/21 20:21 nating Current Medications Generic Name Dose Route Start Last Admin Trade Name Freq PRN Reason Stop Dose Admin Bupropion HCl 300 mg 12/17/21 06:00 12/17/21 05:44 Bupropion Xl (24 Hr) 300 Mg Tablet PO 300 mg QAM LEORA Administration Cyclobenzaprine HCl 10 mg 12/16/21 23:11 12/16/21 23:55 Cyclobenzaprine 10 Mg Tablet PO 10 mg BEDTIME LEORA Administration Enoxaparin Sodium 120 mg 12/16/21 23:11 12/16/21 23:56 Enoxaparin 120 Mg/0.8 Ml Syringe SUBCUT 120 mg Q12H LEORA Administration Dextrose/Sodium Chloride 1,000 mls @ 75 mls/hr 12/16/21 23:11 12/16/21 23:56 Dextrose 5%-Sod Chloride 0.9% IV 75 mls/hr .[id number] LEORA Administration Metoprolol Tartrate 75 mg 12/16/21 23:11 12/16/21 23:56 Metoprolol Tartrate 25 Mg Tablet PO 75 mg Q12H LEORA Administration Non-Formulary Medication 20 mg 12/16/21 23:11 12/17/21 00:16 Suvorexant PO Not Given BEDTIME LEORA Pantoprazole Sodium 40 mg 12/16/21 23:11 12/16/21 23:56 Pantoprazole 40 Mg Sdv IVP 40 mg Q12H LEORA Administration Pramipexole Dihydrochloride 0.25 mg 12/16/21 23:11 12/16/21 23:56 Pramipexole 0.25 Mg Tablet PO 0.25 mg BEDTIME LEORA Administration PFSH Acute PFSH: Medical History Atypical chest pain Bipolar depression CAD (coronary artery disease) Chest pain Chronic headache Chronic pain syndrome Due to her weight and other comorbidities I do not think that there is much that pain management would be able to do. They can do localized injections or treatments on specific joints but she would never be a surgical candidate. Congestive heart failure Constipation, chronic COPD (chronic obstructive pulmonary disease) Diabetes mellitus type 2 in obese DM type 2 (diabetes mellitus, type 2) Fibromyalgia Generalized anxiety disorder GERD (gastroesophageal reflux disease) History of colonic diverticulitis Hyperlipemia Hypertension, benign Insomnia Major depressive disorder, recurrent, moderate Mixed stress and urge urinary incontinence Nicotine dependence, cigarettes, with other nicotine-induced disorders NONA (obstructive sleep apnea) Uses CPAP Overactive bladder Panic disorder [episodic paroxysmal anxiety] Paroxysmal A-fib Paroxysmal atrial fibrillation (~08/2020) Paroxysmal SVT (supraventricular tachycardia) Peripheral Vascular Disease RLS (restless legs syndrome) Surgical History H/O thyroidectomy H/O: hysterectomy Hx of cholecystectomy S/P appendectomy Family History Mother , at age 75 Hypertension Father , at age 87 Hypertension Denies family history of Lung disease Stroke Social History Smoking and tobacco status: current every day smoker cigarettes Packs smoked per day: 1 Years cigarettes smoked: 44 Second hand smoke exposure: No Alcohol intake: never Adopted: No Caregiver/support person: No Lives independently: Yes Household members: none Housing: Apartment Marital status: / Number of children: 8 Number of grandchildren: 14 Highest education level completed: Some College, No Degree service: No Current occupational status: disabled Pets and animals: Yes Pets & animals: dog(s) History of recent travel: No Leisure activites: art, music, reading and other Sexually active: No Current gender identity: Female Lilliam/Congregational: Episcopal Special lilliam needs: No Agree to transfusion: Yes Financial difficulty paying for basics: Not Very Hard Female Reproductive History: Para: 8 Spontaneous abortions: No Vitals/I&O/Wt Last Vital Signs Temp 98.5 F 12/17/21 04:00 Pulse 117 H 12/17/21 06:00 Resp 22 H 12/17/21 04:00 BP 166/99 12/17/21 04:00 Pulse Ox 95 12/17/21 04:00 O2 Del Method 12/17/21 01:44 O2 Flow Rate 2 12/17/21 01:44 12/16/21 12/16/21 12/17/21 14:59 22:59 06:59 Intake Total 50 / 50 Output Total 600 / 600 Balance -550 / -550 Weight last 48 hrs Weight 265 lb Physical Exam Const: COMMON NORMALS: no acute distress and patient oriented x3 GENERAL APPEARANCE: cooperative ORIENTATION/CONSCIOUSNESS: Yes awake, Yes oriented to person, Yes oriented to place and Yes oriented to time HENMT: COMMON NORMALS: normocephalic HEAD & SCALP: normocephalic OTHER: NG in place Eye: COMMON NORMALS: Equal, round and reactive pupils present and no scleral icterus PUPIL: Yes Equal, round and reactive pupils present Lymph: LYMPHATIC: no lymphadenopathy noted Chest: COMMONS NORMALS: normal inspection of the chest Resp: COMMON NORMALS: normal respiratory effort and clear to auscultation bilaterally AUSCULTATION: clear to auscultation bilaterally Cardio: COMMON NORMALS: S1 normal heart sound present and S2 normal heart sound present; negative for No murmurs present (Cardio) HEART SOUNDS: S1 normal heart sound present and S2 normal heart sound present GI: COMMON NORMALS: Soft to palpation; negative for No hepatosplenomegaly present INSPECTION: No normal to inspection and Yes scar (Right subcostal scar) PALPATION: Yes Soft to palpation, No Firmness to palpation present (GI), No Tenderness to palpation present (GI), No Guarding due to palpation present (GI), No Rigid due to palpation and No No hepatosplenomegaly present Neuro: COMMON NORMALS: patient oriented x3 SENSORIUM/ORIENTATION: Yes oriented to person, Yes oriented to place and Yes oriented to time Psych: COMMON NORMALS: mental status grossly normal Skin: COMMON NORMALS: no rashes or lesions noted GENERAL SKIN EXAM: no rashes or lesions noted Data : 12/17/21 04:10 12/17/21 04:10 A&P Assessment and plan (1) Small bowel obstruction: After history taking physical examination and reviewing the chart and images with my personal interpretation, patient does have an underlying partial small bowel obstruction likely adhesive in nature, I can appreciate gas and stool in the rectal vault. Continue NG to low intermittent wall suction IV fluid resuscitation Pharmacologic DVT prophylaxis Strict I's and O's Encourage ambulation if possible Repeated physical examination Assurance and education All questions have been answered and all concerns have been addressed to patient's satisfaction. 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
[2021-12-17 07:37] LABS: Glucose Point of Care 227 mg/dL (70-110)
[2021-12-17] MEDS: ipratropium-albuterol 3 mL Neb INHALATION ×2 (09:21→20:54)
[2021-12-17] MEDS: insulin lispro 100 unit/1 mL SUBCUT ×2 (10:26→17:39)
[2021-12-17] MEDS: FUROsemide 40 mg Tablet PO (10:27)
[2021-12-17] MEDS: potassium chloride ER 20 mEq Tablet PO ×2 (10:27→17:40)
[2021-12-17] MEDS: docusate sodium 100 mg Capsule 200 MG PO ×2 (10:27→17:40)
[2021-12-17] MEDS: BuSPIRONE 10 mg Tablet 15 MG PO ×2 (10:27→17:39)
[2021-12-17] MEDS: duloxetine 60 mg Capsule PO (10:27)
[2021-12-17] MEDS: pregabalin 75 mg Capsule PO ×2 (10:28→17:40)
[2021-12-17] MEDS: aspirin 81 mg EC Tablet PO (10:28)
[2021-12-17] MEDS: pantoprazole 40 mg SDV IVP ×2 (10:29→23:50)
[2021-12-17] MEDS: enoxaparin 120 mg/0.8 mL Syringe SUBCUT ×2 (10:29→23:01)
[2021-12-17] MEDS: metoprolol tartrate 25 mg Tablet 75 MG PO ×2 (10:29→23:15)
[2021-12-17] MEDS: oxybutynin 5 mg Tablet 15 MG PO (10:29)
[2021-12-17] MEDS: risperiDONE 0.25 mg Tablet 0.5 MG PO ×2 (10:29→17:40)
--- NOTE | 2021-12-17 11:24 | P.PN_ITS ---
Subjective Subjective: Patient is not endorsing abdominal pain She is endorsing use passage of flatus, no bowel movement yet NG to suction 600 mL bilious content Appreciate general surgery recommendations Continue IV fluid hydration In case we are not able to remove NG tube in next 24 hours we will start PPN Vitals/I&O/Wt Last Vital Signs Temp 98.7 F 12/17/21 08:00 Pulse 89 12/17/21 09:04 Resp 16 12/17/21 09:04 BP 157/84 12/17/21 08:00 Pulse Ox 95 12/17/21 09:04 O2 Del Method 12/17/21 08:00 O2 Flow Rate 2 12/17/21 09:04 12/16/21 12/17/21 12/17/21 22:59 06:59 14:59 Intake Total 50 / 50 Output Total 600 / 600 Balance -550 / -550 Weight last 48 hrs Weight 120.202 kg Physical Exam Narrative: Patient is awake and alert Pleasant cooperative Abdomen is soft nontender mild tenderness to deep palpation left lower quadrant Bowel sounds hypoactive and present NG to suction 600 and no noted today Awake and alert Saturating well on 2 L which is home requirement Nonfocal neuro exam Venous stasis dermatitis Data : 12/17/21 04:10 12/17/21 04:10 A&P Assessment and plan (1) Small bowel obstruction: Status: Acute (2) History of colonic diverticulitis: Status: Acute (3) Congestive heart failure: Status: Acute (4) DM type 2 (diabetes mellitus, type 2): Status: Acute (5) Paroxysmal atrial fibrillation: Status: Acute (6) Hypertension, benign: Status: Acute (7) Oxygen dependent: Status: Acute (8) Wheelchair bound: Status: Acute Plan SBO Patient not in any distress Conservative management NG to suction 600 mL bilious content noted Appreciate general surgery recommendations Continue IV fluids If you are not able to take NG tube out 4 hours, start PPN Patient has positive bowel sounds, passage of flatus positive Abdomen is soft No active discomfort Patient is full code DVT prophylaxis Patient is multiple anxiolytics and muscle relaxant I would hold a few of them and only continue which are really needed to keep her anxiety under control Continue Protonix, hold Lasix would recommend IV fluids gentle hydration Start DVT prophylaxis with Lovenox Patient is wheelchair-bound for fibromyalgia and bad knees Venous stasis dermatitis no active signs of congestive heart failure Patient uses 2 L of oxygen at baseline Attestations Medical Necessity Statement*: Continue medical management Time Spent in Patient Care: 30 Coding Level of Care Code Acute 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
[2021-12-17 13:07] LABS: Glucose Point of Care 233 mg/dL (70-110)
[2021-12-17] MEDS: dextrose 5%-sod chloride 0.45% 1,000 ML 30 ML IV (15:27)
[2021-12-17] MEDS: ondansetron 2 mg/ML SDV 2 mL 4 MG IVP (15:35)
[2021-12-17 17:29] LABS: Glucose Point of Care 202 mg/dL (70-110)
[2021-12-17] MEDS: pramipexole 0.25 mg Tablet PO (21:15)
[2021-12-17 21:41] LABS: Glucose Point of Care 198 mg/dL (70-110)
[2021-12-17] MEDS: acetaminophen 325 mg Tablet 650 MG PO (23:14)
[2021-12-18] VITALS (11 sets, daily range): BP systolic 119–146; BP diastolic 78–89; PULSE 74–120; RESP 16–20; TEMP 36.5–37.3; O2SAT 95–98
[2021-12-18 05:46] LABS: Basophils % 0.2 %; Eosinophils # 0.2 10^3/uL (0.0-0.8); Eosinophils % 1.9 %; Hemoglobin 13.5 g/dL (11.5-15.3); Lymphocytes # 2.3 10^3/uL (0.8-4.8); Lymphocytes % 28.1 %; Mean Corpuscular HGB Conc 31.4 g/dL (30.0-36.0); Mean Corpuscular Volume 92.3 fl (81-99); Mean Platelet Volume 11.6 fL (7.4-10.4); Monocytes # 0.7 10^3/uL (0.2-0.9); Monocytes % 8.8 %; Neutrophils # 4.98 10^3/uL (1.8-7.7); Neutrophils % 60.6 %; Nucleated Red Blood Cells % 0 %; Platelet Count 174 10^3/cmm (130-400); Red Blood Count 4.66 10^6/uL (4.1-5.3); Red Cell Distribution Width 14.7 % (12.1-15.1); White Blood Count 8.2 10^3/uL (4.0-10.0)
[2021-12-18] MEDS: buPROPion XL (24 HR) 300 mg Tablet PO (05:48)
[2021-12-18 05:51] LABS: Alanine Aminotransferase 42 U/L (0-33); Albumin Level 3.5 g/dL (3.5-5.2); Alkaline Phosphatase 128 U/L (35-105); Anion Gap 15.7 (5-19); Aspartate Amino Transferase 49 U/L (0-32); Blood Urea Nitrogen 7 mg/dL (8-23); C Reactive Protein 25.1 mg/L (0.0-4.9); Calcium 8.4 mg/dL (8.5-10.5); Carbon Dioxide 29 mmol/L (22-29); Chloride 101 mmol/L (98-107); Globulin 2.3 g/dL (1.3-4.6); Glomerular Filtration Rate 160.7 mL/min (90-130); Glucose 184 mg/dL (65-115); Osmolality Calculated 297 mOsm/kg (285-295); Potassium 3.7 mmol/L (3.5-5.1); Sodium 142 mmol/L (136-145); Total Bilirubin 0.6 mg/dL (0.15-1.2); Total Protein 5.8 g/dL (6.6-8.7)
--- NOTE | 2021-12-18 06:14 | XR_ITS ---
WS: [id number] KUB, AP view, 12/18/2021 Clinical Data: sbo Comparison: None. Findings: No abnormal intraabdominal masses or calcifications are seen. There is no dilatated small bowel or ev idence of obstruction. There are scattered central small bowel loops. There is fecal material in the colon. There is a nasog astric tube that ends in the fundus of the stomach. There are monitor leads on the abdominal wall. XR/XR KUB portable [id number] Impression: Moderate generalized ileus.
--- NOTE | 2021-12-18 06:15 | PM.PN ---
Subjective Subjective: Gastric content drainage yesterday was 600 mL No overnight events no Active emesis Passage of flatus Generalized ileus on recent KUB Minimal gastric content suctioned since yesterday Clamp NG tube, nurse updated Vitals/I&O/Wt Last Vital Signs Temp 97.7 F 12/18/21 04:00 Pulse 117 H 12/18/21 06:00 Resp 17 12/18/21 04:00 BP 137/88 12/18/21 04:00 Pulse Ox 95 12/18/21 04:00 O2 Del Method 12/17/21 15:45 O2 Flow Rate 2 12/17/21 20:55 12/17/21 12/17/21 12/18/21 14:59 22:59 06:59 Intake Total 0 / 0 Output Total 800 / 800 600 / 1400 Balance -800 / -800 -600 / -1400 Weight last 48 hrs Weight 120.202 kg Physical Exam Narrative: Pleasant elderly female NG to low intermittent suction, minimal contents suctioned since yesterday Abdomen is soft, bowel sounds present Patient looks euvolemic Awake and alert Nonfocal neuro exam saturating well on 2 L nasal cannula S1, S2 Data : 12/18/21 05:36 12/18/21 03:29 A&P Assessment and plan (1) Wheelchair bound: Status: Acute (2) Oxygen dependent: Status: Acute (3) Small bowel obstruction: Status: Acute (4) DM type 2 (diabetes mellitus, type 2): Status: Acute Plan SBO Today KUB showing generalized ileus Clamp NG tube Patient is passing flatus Will follow with general surgery recommendation Continue IV fluid hydration Replenish potassium Magnesium at goal Patient is full code DVT prophylaxis on board Chronic hypoxia without acute exacerbation History of Mor Marinelli on hold currently on therapeutic Lovenox, patient experiencing rebound tachycardia, will resume her AV ann blocking agents, for now I will give her IV regimen after NG tube was taken out we will do p.o. Attestations Medical Necessity Statement*: Continue medical management Time Spent in Patient Care: 30 Coding Level of Care Code Acute Campus Coordinator for [facility] Fwd Diagnoses Wheelchair bound Z99.3 Oxygen dependent Z99.81 Small bowel obstruction K56.609 DM type 2 (diabetes mellitus, type 2) E11.9
[2021-12-18 06:21] LABS: Glucose Point of Care 170 mg/dL (70-110)
[2021-12-18] MEDS: metoprolol tartrate 25 mg Tablet 75 MG PO ×2 (09:10→21:40)
[2021-12-18] MEDS: BuSPIRONE 10 mg Tablet 15 MG PO ×2 (09:11→19:51)
[2021-12-18] MEDS: potassium chloride ER 20 mEq Tablet PO ×2 (09:11→19:50)
[2021-12-18] MEDS: docusate sodium 100 mg Capsule 200 MG PO ×2 (09:11→19:50)
[2021-12-18] MEDS: risperiDONE 0.25 mg Tablet 0.5 MG PO ×2 (09:11→19:50)
[2021-12-18] MEDS: pregabalin 75 mg Capsule PO ×2 (09:12→19:52)
[2021-12-18] MEDS: insulin lispro 100 unit/1 mL SUBCUT ×2 (09:13→14:02)
[2021-12-18] MEDS: enoxaparin 120 mg/0.8 mL Syringe SUBCUT ×2 (09:14→21:39)
[2021-12-18] MEDS: pantoprazole 40 mg SDV IVP ×2 (09:14→21:40)
[2021-12-18 11:10] LABS: Glucose Point of Care 185 mg/dL (70-110)
--- NOTE | 2021-12-18 11:53 | P.PN_ITS ---
Subjective Subjective: Patient overall seems to be performing better and passing gas with minimal NG output Medications: Reviewed: Yes Vitals/I&O/Wt Last Vital Signs Temp 98.9 F 12/18/21 11:44 Pulse 113 H 12/18/21 11:44 Resp 19 H 12/18/21 11:44 BP 138/85 12/18/21 11:44 Pulse Ox 97 12/18/21 11:44 O2 Del Method 12/18/21 11:44 O2 Flow Rate 2 12/18/21 11:44 12/17/21 12/18/21 12/18/21 22:59 06:59 14:59 Intake Total 0 / 0 Output Total 800 / 800 600 / 1400 Balance -800 / -800 -600 / -1400 Weight last 48 hrs Weight 265 lb Physical Exam Narrative: Patient is conscious alert oriented X3 No apparent distress BMI 45.5 Head and neck examination PERRLA no masses no cervical lymphadenopathy no jaundice NG in place Abdomen nontender nondistended soft no organomegaly guarding or rigidity/no signs of peritonitis Morbidly obese Data : 12/18/21 05:36 12/18/21 03:29 Micro: Microbiology 12/16/21 21:19 Urine Culture - Preliminary Urine,Clean Catch Gram Negative Rods A&P Assessment and plan (1) Small bowel obstruction: We will plan to clamp NG tube for 2 hours and check residuals thereafter. If less than 200 mL will DC NG tube and start slowly clear liquid diet Pharmacologic DVT prophylaxis Strict I's and O's Encourage ambulation if possible Repeated physical examination Assurance and education All questions have been answered and all concerns have been addressed to patient's satisfaction. 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
[2021-12-18 17:05] LABS: Glucose Point of Care 135 mg/dL (70-110)
[2021-12-18] MEDS: ipratropium-albuterol 3 mL Neb INHALATION (20:35)
[2021-12-18] MEDS: pramipexole 0.25 mg Tablet PO (20:55)
[2021-12-18 21:25] LABS: Glucose Point of Care 170 mg/dL (70-110)
[2021-12-18] MEDS: zolpidem 5 mg Tablet PO (21:39)
[2021-12-18] MEDS: acetaminophen 325 mg Tablet 650 MG PO (21:45)
[2021-12-19] VITALS: BP 125/73; PULSE 113; RESP 13; TEMP 36.9; O2SAT 99
[2021-12-19] MEDS: dextrose 5%-sod chloride 0.45% 1,000 ML 30 ML IV (01:07)
[2021-12-19 04:00] VITALS: BP 149/79; PULSE 115; RESP 15; TEMP 36.9; O2SAT 97
[2021-12-19 04:52] LABS: Basophils % 0.2 %; Eosinophils # 0.2 10^3/uL (0.0-0.8); Eosinophils % 2.6 %; Hematocrit 43.8 % (37.0-47.0); Hemoglobin 13.6 g/dL (11.5-15.3); Lymphocytes # 1.9 10^3/uL (0.8-4.8); Lymphocytes % 22.4 %; Mean Corpuscular HGB Conc 31.1 g/dL (30.0-36.0); Mean Corpuscular Hemoglobin 28.9 pg (28.0-34.0); Mean Platelet Volume 11.7 fL (7.4-10.4); Monocytes # 0.6 10^3/uL (0.2-0.9); Monocytes % 7.5 %; Neutrophils # 5.73 10^3/uL (1.8-7.7); Neutrophils % 66.8 %; Nucleated Red Blood Cells % 0 %; Platelet Count 176 10^3/cmm (130-400); Red Blood Count 4.71 10^6/uL (4.1-5.3); Red Cell Distribution Width 14.3 % (12.1-15.1); White Blood Count 8.6 10^3/uL (4.0-10.0)
[2021-12-19] MEDS: buPROPion XL (24 HR) 300 mg Tablet PO (05:02)
[2021-12-19 05:24] LABS: Blood Urea Nitrogen 5 mg/dL (8-23); Carbon Dioxide 30 mmol/L (22-29); Chloride 102 mmol/L (98-107); Glomerular Filtration Rate 160.7 mL/min (90-130); Sodium 139 mmol/L (136-145)
[2021-12-19 05:25] LABS: Alanine Aminotransferase 39 U/L (0-33); Albumin Level 3.4 g/dL (3.5-5.2); Alkaline Phosphatase 130 U/L (35-105); Aspartate Amino Transferase 45 U/L (0-32); Calcium 8.4 mg/dL (8.5-10.5); Globulin 2.1 g/dL (1.3-4.6); Glucose 228 mg/dL (65-115); Magnesium 2.1 mg/dL (1.7-2.3); Osmolality Calculated 292 mOsm/kg (285-295); Total Bilirubin 0.5 mg/dL (0.15-1.2); Total Protein 5.5 g/dL (6.6-8.7)
[2021-12-19 05:27] LABS: Anion Gap 11.1 (5-19); Potassium 4.1 mmol/L (3.5-5.1)
[2021-12-19 06:14] LABS: Glucose Point of Care 221 mg/dL (70-110)
[2021-12-19 08:00] VITALS: BP 151/91; PULSE 155; PULSE 89; RESP 18; TEMP 37.1; O2SAT 96; O2SAT 98
[2021-12-19] MEDS: insulin lispro 100 unit/1 mL SUBCUT ×2 (08:47→13:08)
[2021-12-19] MEDS: enoxaparin 120 mg/0.8 mL Syringe SUBCUT (08:48)
[2021-12-19] MEDS: pantoprazole 40 mg SDV IVP (08:50)
[2021-12-19] MEDS: risperiDONE 0.25 mg Tablet 0.5 MG PO (08:51)
[2021-12-19] MEDS: metoprolol tartrate 25 mg Tablet 75 MG PO (08:51)
[2021-12-19] MEDS: BuSPIRONE 10 mg Tablet 15 MG PO (08:51)
[2021-12-19] MEDS: pregabalin 75 mg Capsule PO (08:51)
[2021-12-19] MEDS: potassium chloride ER 20 mEq Tablet PO (08:52)
[2021-12-19] MEDS: docusate sodium 100 mg Capsule 200 MG PO (08:52)
--- NOTE | 2021-12-19 10:02 | PC.SOCIAL ---
Pg 2 IMM Explained to pt Pg 2 IMM. No questions voiced. Provided pt a copy. Initialed, dated, & timed a copy & placed in chart.
--- NOTE | 2021-12-19 10:19 | PM.PN ---
Subjective Subjective: Patient seen and examined. Denies abdominal pain nausea or emesis. Bowel movements x3 Vitals/I&O/Wt Last Vital Signs Temp 98.7 F 12/19/21 08:00 Pulse 155 H 12/19/21 08:00 Resp 18 12/19/21 08:00 BP 151/91 12/19/21 08:00 Pulse Ox 98 12/19/21 08:00 O2 Del Method 12/19/21 08:00 O2 Flow Rate 2 12/19/21 08:00 12/18/21 12/19/21 12/19/21 22:59 06:59 14:59 Intake Total 340 / 340 1000 / 1340 400 / 400 Balance 340 / 340 1000 / 1340 400 / 400 Physical Exam Narrative: Patient is conscious alert oriented X3 No apparent distress BMI 45.5 Head and neck examination PERRLA no masses no cervical lymphadenopathy no jaundice NG in place Abdomen nontender nondistended soft no organomegaly guarding or rigidity/no signs of peritonitis Morbidly obese Data : 12/19/21 04:25 12/19/21 04:25 Micro: Microbiology 12/16/21 21:19 Urine Culture - Preliminary Urine,Clean Catch Gram Negative Rods A&P Assessment and plan (1) Small bowel obstruction: Advance to soft diet. 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
--- NOTE | 2021-12-19 11:51 | PM.DCS ---
Discharge Providers Date of Admission: 12/16/21 20:20 Date of Discharge: December 19, 2021 Attending Provider at Admission: Yonas Kelley MD Attending Provider at Discharge: Rehana Szymanski MD Primary Care Provider: Kristine Rodriguez MD Diagnoses at Discharge Discharge Diagnosis (1) Small bowel obstruction: Status: Acute Reason for Visit Reason for Visit: N/V/D Hospital Course Hospital Course 66 YO female who has had multiple abdominal surgeries in the past presented with chief complaint of recurrent nausea vomiting she was diagnosed with bowel obstruction. She was managed conservatively with NG tube low intermittent suction, initially 600 mL bilious content was obtained however in next 24 hours there was no output, NG was clamped and discontinued. She had 3 bowel movements, she was able to tolerate her diet, she be discharged home with antibiotics for her UTI and stool softeners. At baseline she requires 2 L of oxygen, oxygen, and has not worsened. Dr. Masterson was consulted for her bowel obstruction. Abnormal liver enzymes gallbladder is normal, no CBD dilation, No sign of colitis/ diverticulitis , umbilical hernia without obstruction L5-S1 disc degeneration She can continue her medications for A. fib. Physical Exam Narrative: Awake and alert Currently on 2 L Satting well Abdomen soft Bowel sound present Euvolemic Venous stasis dermatitis Awake and alert Nonfocal neuro exam Pleasant cooperative Discharge Data Studies Completed and Pending Completed Studies During Hospitalization Category Date Time Status CT abdomen pelvis wo con [id number] Stat Cat Scan 12/16/21 17:49 Completed CXRP [XR chest 1V portable [id number]] Stat Exams 12/16/21 22:22 Completed XR KUB portable [id number] Routine Exams 12/18/21 06:14 Completed Pending at discharge Category Date Time Status Urine Culture Stat Lab 12/16/21 21:19 Results Radiology Impressions Abdomen/Pelvis CT 12/16/21 17:49 IMPRESSION: Small bowel obstruction. COMMENTS: Consistent with the [employer]'s Incidental Findings Committee white paper (J Am Dolores Radiol 2018): Any incidental renal lesion less than 1 cm or classified as too small to characterize, or any incidental cystic renal lesion characterized as simple-appearing, is likely benign. No follow-up imaging is recommended for these lesions per consensus recommendations based on imaging criteria. ADDENDUM: 12/16/212019 Addendum: THIS REPORT CONTAINS FINDINGS THAT MAY BE CRITICAL TO PATIENT CARE. The findings were verbally communicated via telephone conference with KATRINA LI at 8:19 PM CDT on 12/16/2021. The findings were acknowledged and understood. Chest X-Ray 12/16/21 22:22 IMPRESSION: 1. No acute infiltrate. 2. NG tube tip is in the stomach. KUB X-Ray 12/18/21 06:14 Impression: Moderate generalized ileus. Laboratory Results WBC 8.6 10^3/uL (4.0-10.0) 12/19/21 04:25 RBC 4.71 10^6/uL (4.1-5.3) 12/19/21 04:25 Hgb 13.6 g/dL (11.5-15.3) 12/19/21 04:25 Hct 43.8 % (37.0-47.0) 12/19/21 04:25 MCV 93.0 fl (81-99) 12/19/21 04:25 MCH 28.9 pg (28.0-34.0) 12/19/21 04:25 MCHC 31.1 g/dL (30.0-36.0) 12/19/21 04:25 RDW 14.3 % (12.1-15.1) 12/19/21 04:25 Plt Count 176 10^3/cmm (130-400) 12/19/21 04:25 MPV 11.7 fL (7.4-10.4) H 12/19/21 04:25 Neut % (Auto) 66.8 % 12/19/21 04:25 Lymph % (Auto) 22.4 % 12/19/21 04:25 [place] % (Auto) 7.5 % 12/19/21 04:25 Eos % (Auto) 2.6 % 12/19/21 04:25 Baso % (Auto) 0.2 % 12/19/21 04:25 Neut # (Auto) 5.73 10^3/uL (1.8-7.7) 12/19/21 04:25 Lymph # (Auto) 1.9 10^3/uL (0.8-4.8) 12/19/21 04:25 [place] # (Auto) 0.6 10^3/uL (0.2-0.9) 12/19/21 04:25 Eos # (Auto) 0.2 10^3/uL (0.0-0.8) 12/19/21 04:25 Baso # (Auto) 0.0 10^3/uL (0.0-0.1) 12/19/21 04:25 Nucleated RBC % (auto) 0 % 12/19/21 04:25 Nucleated RBCs # 0.0 /100WBC 12/19/21 04:25 PT 14.70 SECONDS (12.1-14.9) 12/17/21 04:10 INR 1.11 (0.8-1.2) 12/17/21 04:10 Sodium 139 mmol/L (136-145) 12/19/21 04:25 Potassium 4.1 mmol/L (3.5-5.1) 12/19/21 04:25 Chloride 102 mmol/L (98-107) 12/19/21 04:25 Carbon Dioxide 30 mmol/L (22-29) H 12/19/21 04:25 Anion Gap 11.1 (5-19) 12/19/21 04:25 BUN 5 mg/dL (8-23) L 12/19/21 04:25 Creatinine 0.4 mg/dL (0.5-0.9) L 12/19/21 04:25 GFR Calculation 160.7 mL/min (90-130) H 12/19/21 04:25 Glucose 228 mg/dL (65-115) H 12/19/21 04:25 POC Glucose 221 mg/dL (70-110) H 12/19/21 06:03 Estimat Average Glucose 209 12/16/21 18:20 Hemoglobin A1c 8.9 % (4.0-6.0) H 12/16/21 18:20 Calculated Osmolality 292 mOsm/kg (285-295) 12/19/21 04:25 Calcium 8.4 mg/dL (8.5-10.5) L 12/19/21 04:25 Phosphorus 3.0 mg/dL (2.5-4.5) 12/17/21 04:10 Magnesium 2.1 mg/dL (1.7-2.3) 12/19/21 04:25 Total Bilirubin 0.5 mg/dL (0.15-1.2) 12/19/21 04:25 AST 45 U/L (0-32) H 12/19/21 04:25 ALT 39 U/L (0-33) H 12/19/21 04:25 Alkaline Phosphatase 130 U/L (35-105) H 12/19/21 04:25 C-Reactive Protein 17.0 mg/L (0.0-4.9) H 12/19/21 04:25 NT-Pro-B Natriuret Pep 1151 pg/mL (0-125) H 12/17/21 04:10 Total Protein 5.5 g/dL (6.6-8.7) L 12/19/21 04:25 Albumin 3.4 g/dL (3.5-5.2) L 12/19/21 04:25 Globulin 2.1 g/dL (1.3-4.6) 12/19/21 04:25 Lipase 17 U/L (13-60) 12/16/21 18:20 TSH 0.95 uIU/mL (0.27-4.20) 12/16/21 18:20 Urine Color Yellow (Yellow) 12/16/21 21:19 Urine Appearance Sl hazy (CLEAR) 12/16/21 21:19 Urine pH 6.5 (5-7) 12/16/21 21:19 Ur Specific [place] 1.015 (1.005-1.030) 12/16/21 21:19 Urine Protein Neg (Negative) 12/16/21 21:19 Urine Glucose (UA) 4+ (Normal) H 12/16/21 21:19 Urine Ketones 1+ (Negative) H 12/16/21 21:19 Urine Blood Neg (Negative) 12/16/21 21:19 Urine Nitrate Positive (Negative) H 12/16/21 21:19 Urine Bilirubin 1+ (Negative) H 12/16/21 21:19 Urine Urobilinogen 4 mg/dL (Negative) H 12/16/21 21:19 Ur Leukocyte Esterase Negative (Negative) 12/16/21 21:19 Urine RBC 5-10 /hpf (0-2) H 12/16/21 21:19 Urine WBC 0-4 /hpf (0-5) H 12/16/21 21:19 Ur Squamous Epith Cells 5-10 /hpf (0-5) H 12/16/21 21:19 Amorphous Sediment Not Reportable 08/17/22 21:19 Urine Bacteria 4+ /hpf (NONE) H 12/16/21 21:19 Urine Yeast Trace /hpf 12/16/21 21:19 Vitals Last Vital Signs Temp 98.7 F 12/19/21 08:00 Pulse 155 H 12/19/21 08:00 Resp 18 12/19/21 08:00 BP 151/91 12/19/21 08:00 Pulse Ox 98 12/19/21 08:00 O2 Del Method 12/19/21 08:00 O2 Flow Rate 2 12/19/21 08:00 Discharge Plan Discharge Patient Disposition: Home Health Service Condition: Stable Prescriptions: New amoxicillin-pot clavulanate 875-125 mg tablet 1 tab PO BID Qty: 10 0RF sennosides-docusate sodium [Senna-S] 8.6-50 mg tablet 1 tab-cap PO DAILY Qty: 20 0RF Continued melatonin 5 mg capsule 10 mg PO BEDTIME PRN (Reason: insomnia) (DME) Blood Glucose Test Strip See Rx Instructions .ROUTE .MEDSUPPLY Qty: 50 11RF Rx Instructions: Brand/type to go with meter per insurance coverage (DME) miscellaneous medical supply [facility] [place] See Rx Instructions .Route Qty: 1 0RF Rx Instructions: use 1-2l at night nitroglycerin 0.4 mg tablet, sublingual 0.4 mg SUBLINGUAL Q5M PRN (Reason: Chest Pain) Qty: 30 2RF insulin glargine 100 unit/mL (3 mL) insulin pen 32 unit SUBCUT QAM metoprolol tartrate 75 mg tablet 75 mg PO Q12H 30 Days Qty: 60 5RF albuterol sulfate [Ventolin HFA] 90 mcg/actuation HFA aerosol inhaler 2 puff INHALATION Q6H PRN (Reason: shortness of breath or wheezing) Qty: 8.5 5RF methocarbamol 750 mg tablet 750 mg PO BID PRN (Reason: muscle spasm) 30 Days Qty: 60 5RF pregabalin 75 mg capsule 75 mg PO BID 30 Days Qty: 60 2RF ondansetron 4 mg tablet,disintegrating 4 mg PO Q6H PRN (Reason: nausea and vomiting) Qty: 12 0RF Rx Instructions: 340b please (DME) [facility] See Rx Instructions .Route Qty: 360 11RF Rx Instructions: As directed, 12 daily (DME) pen needle, diabetic [BD Ultra-Fine Mini Pen Needle] 31 gauge x 3/16 needle See Rx Instructions .ROUTE .COMPLEX Qty: 100 0RF Dose Instruction: Needs Directions Rx Instructions: Needs Directions bupropion HCl [Wellbutrin XL] 300 mg tablet extended release 24 hr 300 mg PO QAM 30 Days Qty: 30 1RF risperidone 0.5 mg tablet 0.5 mg PO BID Qty: 60 1RF cholecalciferol (vitamin D3) 1,250 mcg (50,000 unit) capsule 50,000 unit PO .Weekly 60 Days Qty: 10 3RF Rx Instructions: ON MONDAYS metformin 1,000 mg tablet extended release 24hr 1,000 mg PO BID Qty: 180 3RF suvorexant 20 mg tablet 20 mg PO BEDTIME Qty: 30 2RF diclofenac sodium 50 mg tablet,delayed release (DR/EC) 50 mg PO BID PRN (Reason: pain) 30 Days Qty: 60 2RF Rx Instructions: with food insulin lispro [Humalog KwikPen Insulin] 100 unit/mL insulin pen See Rx Instructions .ROUTE .COMPLEX Qty: 15 2RF Dose Instruction: INJECT 6 UNITS THREE TIMES A DAY +SS 140-175 1UNIT,176-200 2 UNITS,201-250 3 UNITS,251-299-5 UNITS,300 7UNITS. MAX DAILY DOSE 39 UNITS Rx Instructions: INJECT 6 UNITS THREE TIMES A DAY +SS 140-175 1UNIT,176-200 2 UNITS,201-250 3 UNITS,251-299-5 UNITS,300 7UNITS. MAX DAILY DOSE 39 UNITS multivitamin Tablet 1 tab PO DAILY Qty: 0 ascorbic acid (vitamin C) [Vitamin C] 1,000 mg Tablet 1,000 mg PO DAILY Qty: 0 furosemide 40 mg tablet 40 mg PO BID Rx Instructions: AT 8 AM AND NOON oxybutynin chloride 15 mg tablet extended release 24hr 15 mg PO DAILY clopidogrel 75 mg tablet 75 mg PO DAILY aspirin 81 mg tablet,delayed release (DR/EC) 81 mg PO DAILY potassium chloride 20 mEq tablet,ER particles/crystals 20 meq PO BID Rx Instructions: FOR 90 DAYS famotidine 20 mg tablet 20 mg PO BID buspirone 10 mg tablet 15 mg PO BID docusate sodium 100 mg capsule 200 mg PO BID pramipexole 0.25 mg tablet 0.25 mg PO BEDTIME loratadine 10 mg tablet 10 mg PO BEDTIME PRN (Reason: Allergy Symptoms) cyclobenzaprine 5 mg tablet 10 mg PO BEDTIME duloxetine 60 mg capsule,delayed release(DR/EC) 60 mg PO DAILY Eliquis 5 mg tablet 5 mg PO BID prednisone 50 mg tablet 50 mg PO DAILY Qty: 5 0RF Discontinued ciprofloxacin HCl 500 mg tablet 500 mg PO BID 5 Days Qty: 10 0RF Discharge Orders: Discharge Order (Routine); Ordered 12/19/21 Ordered By: Rehana Szymanski Referrals: [facility] [Other] Kristine Rodriguez MD [Primary Care Provider] - (Please call for an follow-up appointment with Kristine Rodriguez in 4 to 7 days. ) Patient Instructions: Opioid Safety Discharge Attestations Time Spent in Discharge Care*: less than 30 min Status at Discharge: Cognitive status at discharge: cognitively intact, Behavioral status at discharge: cooperative, Quality Metrics Clinical Quality Measures [ No reported AMI, CVA or VTE this stay] Coding Level of Care Code Acute Chg FLY GARCIA note Diagnoses Small bowel obstruction K56.609
[2021-12-19 12:47] LABS: Glucose Point of Care 228 mg/dL (70-110)
== END 2021-12-19 15:29 | disposition home or self-care (01) | DRG 389 ==
LOC: ER 18:27 → MEDSURG 20:32
PROVIDERS: Admitting Provider Family Medicine; Emergency Provider Emergency Medicine; PCP Family Medicine; Visit Provider Internal Medicine
DX: K56.609 Unspecified intestinal obstruction, unspecified as to partial versus complete obstruction (principal); F33.1 Major depressive disorder, recurrent, moderate; Z68.42 Body mass index [BMI] 45.0-49.9, adult; E11.42 Type 2 diabetes mellitus with diabetic polyneuropathy; E11.51 Type 2 diabetes mellitus with diabetic peripheral angiopathy without gangrene; I48.0 Paroxysmal atrial fibrillation; I25.10 Atherosclerotic heart disease of native coronary artery without angina pectoris; G89.29 Other chronic pain; J44.9 Chronic obstructive pulmonary disease, unspecified; M79.7 Fibromyalgia; E78.5 Hyperlipidemia, unspecified; I50.9 Heart failure, unspecified; I11.0 Hypertensive heart disease with heart failure; G25.81 Restless legs syndrome; E66.01 Morbid (severe) obesity due to excess calories; F17.210 Nicotine dependence, cigarettes, uncomplicated; G47.33 Obstructive sleep apnea (adult) (pediatric); Z79.01 Long term (current) use of anticoagulants; Z79.82 Long term (current) use of aspirin; Z79.02 Long term (current) use of antithrombotics/antiplatelets; Z79.84 Long term (current) use of oral hypoglycemic drugs; Z79.51 Long term (current) use of inhaled steroids; Z79.4 Long term (current) use of insulin; K56.7 Ileus, unspecified; Z99.3 Dependence on wheelchair; I87.2 Venous insufficiency (chronic) (peripheral); G47.00 Insomnia, unspecified; E89.0 Postprocedural hypothyroidism
CPT/HCPCS: 36415; 36416; 71045; 74018; 74176; 80053; 81001; 82962; 83036; 83605; 83690; 83735; 83880; 84100; 84443; 84484; 85025; 85610; 86140; 87077; 87086; 87186; 87426; 93005; 94640; 94664; 96372; 96374; 96375; 99285; C9113; J1650; J1815; J2250; J2270; J2405; J2930; J7799

== ENCOUNTER 2021-12-21 23:32 | Emergency (ER) | payer MEDICARE, MEDICAID, SELFPAY ==
[2021-08-26 17:10] VITALS: BP 146/84; BMI 43.9
[2021-12-21 23:34] VITALS: BP 154/69; PULSE 117; RESP 20; TEMP 37.2; O2SAT 96; BMI 45.4
--- NOTE | 2021-12-21 23:41 | CTR_ITS ---
PROCEDURE INFORMATION: Exam: CT Abdomen And Pelvis Without Contrast Exam date and time: 12/22/2021 12:02 AM Age: 66 years old Clinical indication: Abdominal pain; Generalized; Additional info: Abd pain TECHNIQUE: Imaging protocol: Computed tomography of the abdomen and pelvis without contrast. Radiation optimization: All CT scans at this facility use at least one of these dose optimization techniques: automated exposure control; mA and/or kV adjustment per patient size (includes targeted exams where dose is matched to clinical indication); or iterative reconstruction. COMPARISON: CT abdomen pelvis [facility] [id number] 12/16/2021 7:39 PM RADIATION DOSE METRICS: Total DLP (mGy-cm): 1186.13 FINDINGS: Heart: Moderate calcified coronary artery disease. Liver: Normal. No mass. Gallbladder and bile ducts: Normal. No calcified stones. No ductal dilation. Pancreas: Normal. No ductal dilation. Spleen: Normal. No splenomegaly. Adrenal glands: Normal. No mass. Kidneys and ureters: Normal. No hydronephrosis. Stomach and bowel: Periampullary duodenal diverticulum. Dilated loops of small bowel up to the 4.4 cm in diameter with decompressed distal small bowel with no obvious transition point suggesting proximal enteritis/ileus. Appendix: No evidence of appendicitis. Intraperitoneal space: Unremarkable. No free air. No significant fluid collection. Vasculature: Calcification of the abdominal aorta and/or iliac arteries consistent with atherosclerotic vessel disease. Lymph nodes: Unremarkable. No enlarged lymph nodes. Urinary bladder: Unremarkable as visualized. Reproductive: Stable hysterectomy. 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 Severe L5-S1 degenerative disc disease and spondylosis with [place] type III sclerotic endplate degenerative changes. Soft tissues: Unremarkable. CT/CT abdomen pelvis [facility] [id number] IMPRESSION: Dilated loops of small bowel up to the 4.4 cm in diameter with decompressed distal small bowel with no obvious transition point suggesting proximal enteritis/ileus.
--- NOTE | 2021-12-21 23:42 | W.ED.ABDPA2 ---
HPI - Abdominal Pain General: Chief Complaint: Abdominal Pain Stated Complaint: abdomen pain Time Seen by Provider: 12/21/21 23:32 Source: patient and EMS Mode of arrival: EMS Limitations: no limitations History of Present Illness: 66-year-old female who was recently admitted here for small bowel obstruction she was discharged on the she states that today she has been having nausea vomiting along with abdominal pain states she has had no bowel movements concerned that she has another bowel obstruction. She denies any fever she rates her pain a 6 out of 10 she denies any worsening improving factors denies any chest pain. Associated Symptoms: Reports nausea and vomiting; Denies chills, dysuria and fever(s) Review of Systems Const: Denies: fever(s), chills, body aches or change in appetite Eyes: Denies: blurry vision or eye discomfort ENMT: Denies: throat pain or dental pain Card: Denies: chest pain Resp: Denies: dyspnea GI: Reports: abdominal pain, nausea and vomiting : Denies: dysuria Musc: Denies: neck pain or back pain Skin/Breast: Denies: rash Neuro: Denies: headache(s) Psych: Denies: depression Jagjit/Lymph: Denies: easy bruising All/Imm: Denies: urticaria PFSH ED PFSH: Medical History Atypical chest pain Bipolar depression CAD (coronary artery disease) Chest pain Chronic anticoagulation initiated apixaban 08/2020 for paroxysmal atrial fibrillation Chronic headache Chronic pain syndrome Due to her weight and other comorbidities I do not think that there is much that pain management would be able to do. They can do localized injections or treatments on specific joints but she would never be a surgical candidate. Congestive heart failure Constipation, chronic COPD (chronic obstructive pulmonary disease) Diabetes mellitus type 2 in obese DM type 2 (diabetes mellitus, type 2) Fibromyalgia Generalized anxiety disorder GERD (gastroesophageal reflux disease) History of colonic diverticulitis Hyperlipemia Hypertension, benign Insomnia Major depressive disorder, recurrent, moderate Mixed stress and urge urinary incontinence Nicotine dependence, cigarettes, with other nicotine-induced disorders ONNA (obstructive sleep apnea) Uses CPAP Overactive bladder Oxygen dependent 2 L at home Panic disorder [episodic paroxysmal anxiety] Paroxysmal A-fib Paroxysmal atrial fibrillation (~08/2020) Paroxysmal SVT (supraventricular tachycardia) Peripheral Vascular Disease RLS (restless legs syndrome) Small bowel obstruction Wheelchair bound Surgical History H/O thyroidectomy H/O: hysterectomy Hx of cholecystectomy S/P appendectomy Family History Mother , at age 75 Hypertension Father , at age 87 Hypertension Denies family history of Lung disease Stroke Social History Smoking and tobacco status: current every day smoker cigarettes Packs smoked per day: 1 Years cigarettes smoked: 44 Second hand smoke exposure: No Alcohol intake: never Adopted: No Caregiver/support person: No Lives independently: Yes Household members: none Housing: Apartment Marital status: / Number of children: 8 Number of grandchildren: 14 Highest education level completed: Some College, No Degree service: No Current occupational status: disabled Pets and animals: Yes Pets & animals: dog(s) History of recent travel: No Leisure activites: art, music, reading and other Sexually active: No Current gender identity: Female Lilliam/Christianity: Mormonism Special lilliam needs: No Agree to transfusion: Yes Financial difficulty paying for basics: Not Very Hard Female Reproductive History: Para: 8 Spontaneous abortions: No Physical Exam Const: COMMON NORMALS: patient oriented x3 HENMT: COMMON NORMALS: normocephalic and atraumatic HEAD & SCALP: normocephalic and atraumatic Eye: COMMON NORMALS: Equal, round and reactive pupils present and EOMs intact bilaterally PUPIL: Yes Equal, round and reactive pupils present Neck/C-Spine: COMMON NORMALS: full ROM and supple Chest: COMMONS NORMALS: normal inspection of the chest and normal palpation of entire chest wall Resp: COMMON NORMALS: normal respiratory effort, No retractions, No use of accessory muscles and clear to auscultation bilaterally AUSCULTATION: clear to auscultation bilaterally Cardio: COMMON NORMALS: regular rhythm and No murmurs present (Cardio) RATE: tachycardic RHYTHM: regular rhythm GI: COMMON NORMALS: Normal to inspection, nondistended, normoactive bowel sounds present, Soft to palpation, non-tender and no masses PALPATION: Yes Soft to palpation Extremity: COMMON NORMALS: normal to inspection and full ROM Neuro: COMMON NORMALS: patient oriented x3, moves all extremities and no focal motor deficits Psych: COMMON NORMALS: mental status grossly normal, Normal thought process present and cooperative THOUGHT PROCESS: Normal thought process present Skin: COMMON NORMALS: no rashes or lesions noted and no wounds GENERAL SKIN EXAM: no rashes or lesions noted Course Vital Signs: Vital signs: Vital Signs Temperature 98.0 F 12/22/21 02:55 Pulse Rate 113 H 12/22/21 02:55 Respiratory Rate 19 H 12/22/21 02:55 Blood Pressure 145/76 12/22/21 02:55 Pulse Oximetry 97 12/22/21 02:55 Oxygen Delivery Me thod 12/22/21 02:00 Oxygen Flow Rate 2 12/22/21 02:00 MDM - Abdominal Pain Medical Decision Making Patient presents with a fever likely from urinary tract infection CT abdomen today shows no bowel obstruction is normal otherwise she feels much improved here we will prescribe her Zofran for home along with Keflex she is to follow-up with PCP and return if worsening she understands agrees to plan. Lab Data : 12/21/21 23:51 12/22/21 00:57 Labs/Radiology: Radiology Impressions Abdomen/Pelvis CT 12/21/21 23:41 IMPRESSION: Dilated loops of small bowel up to the 4.4 cm in diameter with decompressed distal small bowel with no obvious transition point suggesting proximal enteritis/ileus. Chest X-Ray 12/22/21 01:15 IMPRESSION: No acute findings. Laboratory Results WBC 14.5 10^3/uL (4.0-10.0) H 12/21/21 23:51 RBC 5.15 10^6/uL (4.1-5.3) 12/21/21 23:51 Hgb 15.1 g/dL (11.5-15.3) 12/21/21 23:51 Hct 46.0 % (37.0-47.0) 12/21/21 23:51 MCV 89.3 fl (81-99) 12/21/21 23:51 MCH 29.3 pg (28.0-34.0) 12/21/21 23:51 MCHC 32.8 g/dL (30.0-36.0) 12/21/21 23:51 RDW 14.9 % (12.1-15.1) 12/21/21 23:51 Plt Count 202 10^3/cmm (130-400) 12/21/21 23:51 MPV 11.4 fL (7.4-10.4) H 12/21/21 23:51 Neut % (Auto) 80.3 % 12/21/21 23:51 Lymph % (Auto) 12.0 % 12/21/21 23:51 [place] % (Auto) 6.4 % 12/21/21 23:51 Eos % (Auto) 0.7 % 12/21/21 23:51 Baso % (Auto) 0.3 % 12/21/21 23:51 Neut # (Auto) 11.62 10^3/uL (1.8-7.7) H 12/21/21 23:51 Lymph # (Auto) 1.7 10^3/uL (0.8-4.8) 12/21/21 23:51 [place] # (Auto) 0.9 10^3/uL (0.2-0.9) 12/21/21 23:51 Eos # (Auto) 0.1 10^3/uL (0.0-0.8) 12/21/21 23:51 Baso # (Auto) 0.1 10^3/uL (0.0-0.1) 12/21/21 23:51 Nucleated RBC % (auto) 0 % 12/21/21 23:51 Nucleated RBCs # 0.0 /100WBC 12/21/21 23:51 Sodium 137 mmol/L (136-145) 12/22/21 00:57 Potassium 3.8 mmol/L (3.5-5.1) 12/22/21 00:57 Chloride 98 mmol/L (98-107) 12/22/21 00:57 Carbon Dioxide 29 mmol/L (22-29) 12/22/21 00:57 Anion Gap 13.8 (5-19) 12/22/21 00:57 BUN 8 mg/dL (8-23) 12/22/21 00:57 Creatinine 0.5 mg/dL (0.5-0.9) 12/22/21 00:57 GFR Calculation 124.2 mL/min (90-130) 12/22/21 00:57 Glucose 213 mg/dL (65-115) H 12/22/21 00:57 Calculated Osmolality 289 mOsm/kg (285-295) 12/22/21 00:57 Calcium 9.0 mg/dL (8.5-10.5) 12/22/21 00:57 Total Bilirubin 0.5 mg/dL (0.15-1.2) 12/22/21 00:57 AST 35 U/L (0-32) H 12/22/21 00:57 ALT 38 U/L (0-33) H 12/22/21 00:57 Alkaline Phosphatase 152 U/L (35-105) H 12/22/21 00:57 Total Protein 6.4 g/dL (6.6-8.7) L 12/22/21 00:57 Albumin 3.6 g/dL (3.5-5.2) 12/22/21 00:57 Globulin 2.8 g/dL (1.3-4.6) 12/22/21 00:57 Lipase 19 U/L (13-60) 12/22/21 00:57 Urine Color Yellow (Yellow) 12/22/21 00:23 Urine Appearance Clear (CLEAR) 12/22/21 00:23 Urine pH 5 (5-7) 12/22/21 00:23 Ur Specific [place] 1.020 (1.005-1.030) 12/22/21 00:23 Urine Protein Trace (Negative) 12/22/21 00:23 Urine Glucose (UA) 2+ (Normal) H 12/22/21 00:23 Urine Ketones 1+ (Negative) H 12/22/21 00:23 Urine Blood Trace (Negative) H 12/22/21 00:23 Urine Nitrate Positive (Negative) H 12/22/21 00:23 Urine Bilirubin 1+ (Negative) H 12/22/21 00:23 Urine Urobilinogen 4 mg/dL (Negative) H 12/22/21 00:23 Ur Leukocyte Esterase Negative (Negative) 12/22/21 00:23 Urine RBC 5-10 /hpf (0-2) H 12/22/21 00:23 Urine WBC 0-4 /hpf (0-5) H 12/22/21 00:23 Ur Squamous Epith Cells 10-15 /hpf (0-5) H 12/22/21 00:23 Amorphous Sediment Not Reportable 12/22/21 00:23 Urine Bacteria 4+ /hpf (NONE) H 12/22/21 00:23 Discharge Plan Discharge Patient Disposition: Home Clinical Impression: Abdominal pain, Acute cystitis Condition: Stable Prescriptions: New cephalexin 500 mg capsule 500 mg PO TID 7 Days Qty: 21 0RF ondansetron 4 mg tablet,disintegrating 4 mg PO Q6H PRN (Reason: nausea and vomiting) Qty: 14 0RF No Action melatonin 5 mg capsule 10 mg PO BEDTIME PRN (Reason: insomnia) (DME) Blood Glucose Test Strip See Rx Instructions .ROUTE .MEDSUPPLY Qty: 50 11RF Rx Instructions: Brand/type to go with meter per insurance coverage (DME) miscellaneous medical supply [facility] [place] See Rx Instructions .Route Qty: 1 0RF Rx Instructions: use 1-2l at night nitroglycerin 0.4 mg tablet, sublingual 0.4 mg SUBLINGUAL Q5M PRN (Reason: Chest Pain) Qty: 30 2RF insulin glargine 100 unit/mL (3 mL) insulin pen 32 unit SUBCUT QAM metoprolol tartrate 75 mg tablet 75 mg PO Q12H 30 Days Qty: 60 5RF albuterol sulfate [Ventolin HFA] 90 mcg/actuation HFA aerosol inhaler 2 puff INHALATION Q6H PRN (Reason: shortness of breath or wheezing) Qty: 8.5 5RF methocarbamol 750 mg tablet 750 mg PO BID PRN (Reason: muscle spasm) 30 Days Qty: 60 5RF pregabalin 75 mg capsule 75 mg PO BID 30 Days Qty: 60 2RF ondansetron 4 mg tablet,disintegrating 4 mg PO Q6H PRN (Reason: nausea and vomiting) Qty: 12 0RF Rx Instructions: 340b please (DME) Depend Underwear For Women XL [facility] See Rx Instructions .Route Qty: 360 11RF Rx Instructions: As directed, 12 daily (DME) pen needle, diabetic [BD Ultra-Fine Mini Pen Needle] 31 gauge x 3/16 needle See Rx Instructions .ROUTE .COMPLEX Qty: 100 0RF Dose Instruction: Needs Directions Rx Instructions: Needs Directions risperidone 0.5 mg tablet 0.5 mg PO BID Qty: 60 1RF cholecalciferol (vitamin D3) 1,250 mcg (50,000 unit) capsule 50,000 unit PO .Weekly 60 Days Qty: 10 3RF Rx Instructions: ON MONDAYS metformin 1,000 mg tablet extended release 24hr 1,000 mg PO BID Qty: 180 3RF suvorexant 20 mg tablet 20 mg PO BEDTIME Qty: 30 2RF diclofenac sodium 50 mg tablet,delayed release (DR/EC) 50 mg PO BID PRN (Reason: pain) 30 Days Qty: 60 2RF Rx Instructions: with food insulin lispro [Humalog KwikPen Insulin] 100 unit/mL insulin pen See Rx Instructions .ROUTE .COMPLEX Qty: 15 2RF Dose Instruction: INJECT 6 UNITS THREE TIMES A DAY +SS 140-175 1UNIT,176-200 2 UNITS,201-250 3 UNITS,251-299-5 UNITS,300 7UNITS. MAX DAILY DOSE 39 UNITS Rx Instructions: INJECT 6 UNITS THREE TIMES A DAY +SS 140-175 1UNIT,176-200 2 UNITS,201-250 3 UNITS,251-299-5 UNITS,300 7UNITS. MAX DAILY DOSE 39 UNITS bupropion HCl [Wellbutrin XL] 300 mg tablet extended release 24 hr 300 mg PO QAM 30 Days Qty: 30 2RF multivitamin Tablet 1 tab PO DAILY Qty: 0 ascorbic acid (vitamin C) [Vitamin C] 1,000 mg Tablet 1,000 mg PO DAILY Qty: 0 furosemide 40 mg tablet 40 mg PO BID Rx Instructions: AT 8 AM AND NOON oxybutynin chloride 15 mg tablet extended release 24hr 15 mg PO DAILY clopidogrel 75 mg tablet 75 mg PO DAILY aspirin 81 mg tablet,delayed release (DR/EC) 81 mg PO DAILY potassium chloride 20 mEq tablet,ER particles/crystals 20 meq PO BID Rx Instructions: FOR 90 DAYS famotidine 20 mg tablet 20 mg PO BID buspirone 10 mg tablet 15 mg PO BID docusate sodium 100 mg capsule 200 mg PO BID pramipexole 0.25 mg tablet 0.25 mg PO BEDTIME loratadine 10 mg tablet 10 mg PO BEDTIME PRN (Reason: Allergy Symptoms) cyclobenzaprine 5 mg tablet 10 mg PO BEDTIME duloxetine 60 mg capsule,delayed release(DR/EC) 60 mg PO DAILY Eliquis 5 mg tablet 5 mg PO BID amoxicillin-pot clavulanate 875-125 mg tablet 1 tab PO BID Qty: 10 0RF Senna-S 8.6-50 mg tablet 1 tab-cap PO DAILY Qty: 20 0RF prednisone 50 mg tablet 50 mg PO DAILY Qty: 5 0RF Discharge Orders: Discharge ED (Routine); Ordered 12/22/21 Ordered By: Claudia Ram Referrals: Kristine Rodriguez MD [Primary Care Provider] - 1-3 days Discharge Diet: Advance as tolerated Discharge Activity: Resume usual activity Patient Instructions: Urinary Tract Infection in Women (ED), Acute Nausea and Vomiting (ED) Coding Level of Care Code ED [employer] Safety Engineer for Chg Fwd Exam Comprehensive
[2021-12-21 23:54] VITALS: RESP 20
[2021-12-21] MEDS: morphine 4 mg/mL SDV 1 mL IVP (23:54)
[2021-12-21] MEDS: ondansetron 2 mg/ML SDV 2 mL 4 MG IVP (23:54)
[2021-12-21 23:56] VITALS: BP 154/69; PULSE 117; RESP 13; O2SAT 97
[2021-12-21 23:58] LABS: Basophils # 0.1 10^3/uL (0.0-0.1); Basophils % 0.3 %; Eosinophils # 0.1 10^3/uL (0.0-0.8); Eosinophils % 0.7 %; Hemoglobin 15.1 g/dL (11.5-15.3); Lymphocytes # 1.7 10^3/uL (0.8-4.8); Mean Corpuscular HGB Conc 32.8 g/dL (30.0-36.0); Mean Corpuscular Hemoglobin 29.3 pg (28.0-34.0); Mean Corpuscular Volume 89.3 fl (81-99); Mean Platelet Volume 11.4 fL (7.4-10.4); Monocytes # 0.9 10^3/uL (0.2-0.9); Monocytes % 6.4 %; Neutrophils # 11.62 10^3/uL (1.8-7.7); Neutrophils % 80.3 %; Nucleated Red Blood Cells % 0 %; Platelet Count 202 10^3/cmm (130-400); Red Blood Count 5.15 10^6/uL (4.1-5.3); Red Cell Distribution Width 14.9 % (12.1-15.1); White Blood Count 14.5 10^3/uL (4.0-10.0)
--- NOTE | 2021-12-22 | PC.NURSE ---
Patient here with c/o of abd pain, reports she has a history of bowel obstructions and feels this is what is going on now. Patient a/o, vss
--- NOTE | 2021-12-22 00:15 | ECG_ITS ---
[facility] Test Date: 2021-12-22 Pat Name: Lin Henao Department: Room: Gender: Female Direct Support Professional Caregiver: : 1955 Requested By: Claudia Rma Order Number: [id number] Tylor MD: Kevon Ge M.D. Measurements Intervals [place] Rate: 115 P: [place]: QRS: -18 QRSD: 94 T: 58 QT: 331 QTc: 459 Interpretive Statements ATRIAL FLUTTER WITH RAPID VENTRICULAR RESPONSE MODERATE ST DEPRESSION [0.05+ mV ST DEPRESSION] Compared to ECG 12/14/2021 06:16:28 ST (T wave) deviation now present Sinus tachycardia no longer present Left bundle-branch block no longer present Electronically Signed On 12-22-2021 17:50:56 CDT by Kevon Ge M.D. [id number]
[2021-12-22] MEDS: labetalol 5 mg/mL SDV 20mL 10 MG IVP (00:36)
[2021-12-22 00:38] VITALS: BP 145/71; PULSE 115; RESP 15; O2SAT 96
[2021-12-22] MEDS: dilTIAZem 5 mg/mL SDV 5 mL 10 MG IVP (01:07)
[2021-12-22 01:09] VITALS: BP 129/65; PULSE 114; RESP 17; O2SAT 96
--- NOTE | 2021-12-22 01:15 | XRR_ITS ---
PROCEDURE INFORMATION: Exam: XR Chest Exam date and time: 12/22/2021 1:21 AM Age: 66 years old Clinical indication: Shortness of breath; Additional info: Abd pain TECHNIQUE: Imaging protocol: Radiologic exam of the chest. Views: 1 view. COMPARISON: CR (CHEST, ) 12/16/2021 10:36 PM FINDINGS: Lungs: Unremarkable. No consolidation. Pleural spaces: Unremarkable. No pleural effusion. No pneumothorax. Heart/Mediastinum: Unremarkable. No cardiomegaly. Bones/joints: Unremarkable. XR/XR chest 1V portable [id number] IMPRESSION: No acute findings.
[2021-12-22 01:26] LABS: Alanine Aminotransferase 38 U/L (0-33); Albumin Level 3.6 g/dL (3.5-5.2); Alkaline Phosphatase 152 U/L (35-105); Anion Gap 13.8 (5-19); Aspartate Amino Transferase 35 U/L (0-32); Blood Urea Nitrogen 8 mg/dL (8-23); Carbon Dioxide 29 mmol/L (22-29); Chloride 98 mmol/L (98-107); Globulin 2.8 g/dL (1.3-4.6); Glomerular Filtration Rate 124.2 mL/min (90-130); Glucose 213 mg/dL (65-115); Lipase 19 U/L (13-60); Osmolality Calculated 289 mOsm/kg (285-295); Potassium 3.8 mmol/L (3.5-5.1); Sodium 137 mmol/L (136-145); Total Bilirubin 0.5 mg/dL (0.15-1.2); Total Protein 6.4 g/dL (6.6-8.7)
[2021-12-22 01:28] LABS: Bilirubin Urine 1+ (Negative); Blood Urine Trace (Negative); Glucose Urine UA 2+ (Normal); Ketones Urine 1+ (Negative); Protein Urine Trace (Negative); Urine Appearance Clear (CLEAR); Urine Color Yellow (Yellow); Urobilinogen Urine 4 mg/dL (Negative); pH Urine 5 (5-7)
[2021-12-22 01:29] LABS: Leukocyte Esterase Urine Negative (Negative); Nitrate Urine Positive (Negative)
[2021-12-22 01:30] LABS: Add Urine Microscopic? YES
[2021-12-22 01:31] LABS: Add Urine Culture? Yes; Bacteria Urine 4+ /hpf; WBC Urine 0-4 /hpf (0-5)
[2021-12-22] MEDS: cefTRIAXone 1,000 MG in sodium chloride 0.9% (plus) 50 ML 100 MG IV (01:56)
[2021-12-22 02:00] VITALS: BP 146/90; PULSE 115; RESP 19; O2SAT 98
[2021-12-22] MEDS: sodium chloride 0.9% 500 ML 999 ML IV (02:14)
[2021-12-22] MEDS: diphenhydrAMINE 50 mg/mL SDV 1mL 25 MG IVP (02:16)
[2021-12-22] MEDS: metoclopramide 5 mg/mL SDV 2 mL IVP (02:16)
--- NOTE | 2021-12-22 02:53 | PC.NURSE ---
Patient given a 500 IV bolus with benadryl and reglan after vomiting, patient responded well and feels ready to go home.
[2021-12-22 02:55] VITALS: BP 145/76; PULSE 113; RESP 19; TEMP 36.7; O2SAT 97
== END 2021-12-22 03:20 | disposition home or self-care (01) ==
PROVIDERS: Emergency Provider Emergency Medicine; PCP Family Medicine
DX: R10.9 Unspecified abdominal pain (principal); N30.00 Acute cystitis without hematuria; Z79.01 Long term (current) use of anticoagulants; Z79.84 Long term (current) use of oral hypoglycemic drugs; Z79.02 Long term (current) use of antithrombotics/antiplatelets; Z79.82 Long term (current) use of aspirin; Z79.4 Long term (current) use of insulin; F17.210 Nicotine dependence, cigarettes, uncomplicated; I25.10 Atherosclerotic heart disease of native coronary artery without angina pectoris; I11.0 Hypertensive heart disease with heart failure; I50.9 Heart failure, unspecified; J44.9 Chronic obstructive pulmonary disease, unspecified; E11.9 Type 2 diabetes mellitus without complications; E78.5 Hyperlipidemia, unspecified; Z99.81 Dependence on supplemental oxygen
CPT/HCPCS: 71045; 74176; 80053; 81001; 83690; 85025; 87077; 87086; 87186; 93005; 96365; 96375; 99285; J0696; J1200; J2270; J2405; J2765; J3490; J7040

== ENCOUNTER → 2022-01-27 11:24 | Outpatient (BNVA) | payer MEDICARE, MEDICAID, OTHER, SELFPAY ==
[2021-08-26 17:10] VITALS: BP 146/84; BMI 43.9
== END ==
PROVIDERS: PCP Family Medicine; Visit Provider Family Medicine
DX: M19.90 Unspecified osteoarthritis, unspecified site (principal); M54.2 Cervicalgia; M25.569 Pain in unspecified knee; Z23 Encounter for immunization; G89.4 Chronic pain syndrome; M79.7 Fibromyalgia; I50.9 Heart failure, unspecified
CPT/HCPCS: 72040

== ENCOUNTER → 2022-02-16 09:15 | Outpatient (BNVA) | payer MEDICARE, MEDICAID, SELFPAY ==
[2021-08-26 17:10] VITALS: BP 146/84; BMI 43.9
== END ==
PROVIDERS: PCP Family Medicine; Visit Provider Anesthesiology Pain Medicine
DX: G89.4 Chronic pain syndrome (principal); M47.812 Spondylosis without myelopathy or radiculopathy, cervical region; I50.9 Heart failure, unspecified; M19.011 Primary osteoarthritis, right shoulder; M67.911 Unspecified disorder of synovium and tendon, right shoulder; F17.210 Nicotine dependence, cigarettes, uncomplicated
CPT/HCPCS: 99204

== ENCOUNTER 2022-04-08 07:46 | Outpatient (CLI) | payer MEDICARE, MEDICAID, SELFPAY ==
[2021-08-26 17:10] VITALS: BP 146/84; BMI 43.9
--- NOTE | 2022-04-08 08:00 | MR_ITS ---
WS: [id number] MRI RIGHT SHOULDER NONCONTRAST TECHNIQUE: Sagittal T2, coronal T1, T2 and proton density imaging. Axial gradient PDE imaging. CLINICAL INFORMATION: M19.019 - Primary osteoarthritis, unspecified shoulder COMPARISON: None. FINDINGS: Images degraded by patient motion. Moderate degenerative arthritis AC joint. Subacromial space is preserved. Advanced degenerative arthr itis at the AC joint with edema and fluid. Slight subacromial spurring. Subacromial space is preserve d. Mild impingement on the distal supraspinatus. Tendinopathy distal supraspinatus. Small insertional tear and undersurface tears distal supraspinatus with chronic thinning of the supraspinatus tendon. No tendon retraction. Tiny joint effusion. Edema infraspinatus muscle belly with tendinopathy. Chronic thinning of the distal infraspinatus with undersurface tear at the insertion. Normal teres minor. Distal subscapularis appears intact. Medial subluxation of the biceps tendon from the bicipital groove proximally. Images degraded in this area due to motion artifact. Tendinopathy i ntra-articular biceps tendon. Advanced degenerative narrowing at the glenohumeral joint. Subchondral cystic change along the greater tuberosity. Fluid in the subcoracoid bursa with loose body. MR/MR shoulder RT wo con* [id number] IMPRESSION: 1. Advanced arthritis AC joint with fluid and edema. 2. Chronic thinning of the distal supraspinatus and infraspinatus with tendino edie. Undersurface insertional tear at the supraspinatus and infraspinatus ins ertions. No tendon retraction. Chronic thinning. 3. Edema infraspinatus muscle belly. 4. Medial subluxation/dislocation of the biceps tendon from the bicipital groo ve proximally. Images in this area degraded by motion. Tendinopathy intra-artic ular biceps tendon. 5. Advanced degenerative arthritis glenohumeral articulation with small joint effusion. 6. Small subcoracoid bursa effusion with ossified loose body.
== END 2022-04-08 07:47 | disposition home or self-care (01) ==
LOC: RAD 07:48
PROVIDERS: PCP Family Medicine; Visit Provider Anesthesiology Pain Medicine
DX: M19.019 Primary osteoarthritis, unspecified shoulder (principal)
CPT/HCPCS: 73221

== ENCOUNTER → 2022-04-13 09:57 | Outpatient (BNVA) | payer MEDICARE, MEDICAID, SELFPAY ==
[2021-08-26 17:10] VITALS: BP 146/84; BMI 43.9
== END ==
PROVIDERS: PCP Family Medicine; Visit Provider Anesthesiology Pain Medicine
DX: Z09 Encounter for follow-up examination after completed treatment for conditions other than malignant neoplasm (principal); G89.4 Chronic pain syndrome; M47.812 Spondylosis without myelopathy or radiculopathy, cervical region; I50.9 Heart failure, unspecified; M79.601 Pain in right arm; M79.602 Pain in left arm
CPT/HCPCS: 99214

== ENCOUNTER → 2022-04-15 11:39 | Outpatient (BNVA) | payer MEDICARE, MEDICAID, SELFPAY ==
[2021-08-26 17:10] VITALS: BP 146/84; BMI 43.9
== END ==
PROVIDERS: PCP Family Medicine; Visit Provider Registered Nurse
DX: Z79.899 Other long term (current) drug therapy (principal); E11.69 Type 2 diabetes mellitus with other specified complication; E66.9 Obesity, unspecified; I50.9 Heart failure, unspecified
CPT/HCPCS: 80053; 80061; 83036; 83735

== ENCOUNTER → 2022-05-06 13:57 | Outpatient (BNVA) | payer MEDICARE, MEDICAID, SELFPAY ==
[2021-08-26 17:10] VITALS: BP 146/84; BMI 43.9
== END ==
PROVIDERS: PCP Family Medicine; Visit Provider Anesthesiology Pain Medicine
DX: M19.011 Primary osteoarthritis, right shoulder (principal)
CPT/HCPCS: 20610; J1030; J3490

== ENCOUNTER → 2022-06-22 08:10 | Outpatient (BNVA) | payer OTHER, MEDICAID, SELFPAY ==
[2021-08-26 17:10] VITALS: BP 146/84; BMI 43.9
== END ==
PROVIDERS: PCP Family Medicine; Referring Provider Anesthesiology Pain Medicine; Visit Provider Orthopaedic Surgery
DX: M19.011 Primary osteoarthritis, right shoulder (principal)
CPT/HCPCS: 73030

== ENCOUNTER → 2022-07-19 10:05 | Outpatient (BNVA) | payer OTHER, MEDICAID, SELFPAY ==
[2021-08-26 17:10] VITALS: BP 146/84; BMI 43.9
== END ==
PROVIDERS: PCP Family Medicine; Visit Provider Family Medicine
DX: C73 Malignant neoplasm of thyroid gland (principal); R79.89 Other specified abnormal findings of blood chemistry; E11.9 Type 2 diabetes mellitus without complications; E78.5 Hyperlipidemia, unspecified
CPT/HCPCS: 80053; 80061; 83036; 84439; 84443

== ENCOUNTER → 2022-08-09 10:45 | Outpatient (BNVA) | payer MEDICARE, MEDICAID, SELFPAY ==
[2021-08-26 17:10] VITALS: BP 146/84; BMI 43.9
== END ==
PROVIDERS: PCP Family Medicine; Visit Provider Internal Medicine
DX: E11.9 Type 2 diabetes mellitus without complications (principal); R79.89 Other specified abnormal findings of blood chemistry; C73 Malignant neoplasm of thyroid gland; Z79.84 Long term (current) use of oral hypoglycemic drugs; Z79.4 Long term (current) use of insulin
CPT/HCPCS: 99214

== ENCOUNTER → 2022-08-30 10:58 | Outpatient (BNVA) | payer MEDICARE, MEDICAID, SELFPAY ==
[2021-08-26 17:10] VITALS: BP 146/84; BMI 43.9
== END ==
PROVIDERS: PCP Family Medicine; Visit Provider Internal Medicine Cardiovascular Disease
DX: M79.7 Fibromyalgia (principal); I25.10 Atherosclerotic heart disease of native coronary artery without angina pectoris; F17.218 Nicotine dependence, cigarettes, with other nicotine-induced disorders; E11.69 Type 2 diabetes mellitus with other specified complication; E66.9 Obesity, unspecified; I47.1 Supraventricular tachycardia; G89.4 Chronic pain syndrome; Z79.01 Long term (current) use of anticoagulants; I48.0 Paroxysmal atrial fibrillation; Z79.4 Long term (current) use of insulin; I11.0 Hypertensive heart disease with heart failure; I50.9 Heart failure, unspecified; Z68.42 Body mass index [BMI] 45.0-49.9, adult
CPT/HCPCS: 99214

== ENCOUNTER 2022-09-30 14:57 | Outpatient (CLI) | payer MEDICARE, MEDICAID, SELFPAY ==
[2021-08-26 17:10] VITALS: BP 146/84; BMI 43.9
--- NOTE | 2022-09-30 15:30 | US_ITS ---
WS: [id number] Exam: US thyroid [id number] Date/Time of Exam: 09/30/2022 3:32 PM Reason For Exam: thyroid cancer Comparison 03/31/2021 The right thyroid lobe is surgically absent. There is goitrous enlargement of the left thyroid lobe m easuring 5.67 x 2.48 x 2.47. The left lobe is somewhat heterogeneous. A hypoechoic nodule noted in th e inferior pole the left thyroid lobe measures 1.08 x 1.13 x 0.86 cm. This is an apparent indetermina te nodule not definitely seen on the last exam of 03/31/2021. There is also a benign-appearing nodule in the upper pole of the left thyroid lobe containing coarse calcification that measures 1.15 x 0.67 x 0.88 cm. The thyroid isthmus is thickened measuring 6.2 mm at greatest thickness. No nodules are n oted in the isthmus. US/US thyroid [id number] IMPRESSION: 1. New hypoechoic solid nodule in the lower pole of the left thyroid lobe. This measures slightly over 1 cm at greatest diameter and represents an indetermina te lesion. Needle biopsy is recommended. 2. Goitrous enlargement of the left thyroid lobe. The right lobe is surgically absent. 3. Benign-appearing nodule containing coarse calcification in the upper pole of the left thyroid lobe measuring 1.15 cm at greatest diameter.
== END 2022-09-30 14:58 | disposition home or self-care (01) ==
PROVIDERS: PCP Family Medicine; Visit Provider Internal Medicine
DX: C73 Malignant neoplasm of thyroid gland (principal); R79.89 Other specified abnormal findings of blood chemistry; E04.1 Nontoxic single thyroid nodule
CPT/HCPCS: 76536

== ENCOUNTER → 2022-10-11 09:10 | Outpatient (BNVA) | payer MEDICARE, OTHER, SELFPAY ==
[2021-08-26 17:10] VITALS: BP 146/84; BMI 43.9
== END ==
PROVIDERS: PCP Family Medicine; Visit Provider Family Medicine
DX: C73 Malignant neoplasm of thyroid gland (principal); R79.89 Other specified abnormal findings of blood chemistry; K59.09 Other constipation
CPT/HCPCS: 80053; 80061; 82043; 83036; 84439; 84443; 84480

== ENCOUNTER 2022-10-22 09:33 | Outpatient (CLI) | payer MEDICARE, MEDICAID, SELFPAY ==
[2021-08-26 17:10] VITALS: BP 146/84; BMI 43.9
--- NOTE | 2022-10-22 12:45 | US_ITS ---
WS: [id number] THYROID ULTRASOUND HISTORY: thyroid nodule COMPARISON: 09/30/2022, 03/31/2021. Patient presents for possible biopsy of a RIGHT thyroid nodule. Hypoechoic but cystic appearing nodule noted within the inferior RIGHT thyroid. This is a very small thyroid nodule of less than 10 mm. No increased vascularity. Benign in appearance. There is no solid mass or echogenic foci for which biopsy should be targeted. US/US thyroid [id number] IMPRESSION: 1. No thyroid biopsy will be performed today. 2. The cystic nodule in the inferior RIGHT thyroid is 9 mm. There is no solid nodule for which biopsy should be attempted at this time. Recommend 6-12 month ultrasound follow-up of the LEFT thyroid. If this nodule or any additional nodu le becomes larger or more suspicious based upon imaging characteristics ultraso und biopsy can be performed at that time. This was explained in detail to the p atient.
== END 2022-10-22 09:34 | disposition home or self-care (01) ==
PROVIDERS: PCP Family Medicine; Visit Provider Internal Medicine
DX: E04.1 Nontoxic single thyroid nodule (principal)
CPT/HCPCS: 10005; 76536; 99213

== ENCOUNTER → 2022-12-02 07:53 | Outpatient (BNVA) | payer MEDICARE, MEDICAID, SELFPAY ==
[2021-08-26 17:10] VITALS: BP 146/84; BMI 43.9
== END ==
PROVIDERS: PCP Family Medicine; Visit Provider Internal Medicine
DX: C73 Malignant neoplasm of thyroid gland (principal); R79.89 Other specified abnormal findings of blood chemistry; E11.9 Type 2 diabetes mellitus without complications; Z79.4 Long term (current) use of insulin; Z79.84 Long term (current) use of oral hypoglycemic drugs
CPT/HCPCS: 99214

== ENCOUNTER → 2022-12-13 08:58 | Outpatient (BNVA) | payer MEDICARE, MEDICAID, SELFPAY ==
[2021-08-26 17:10] VITALS: BP 146/84; BMI 43.9
== END ==
PROVIDERS: PCP Family Medicine; Visit Provider Internal Medicine
DX: C73 Malignant neoplasm of thyroid gland (principal); R79.89 Other specified abnormal findings of blood chemistry
CPT/HCPCS: 99214

== ENCOUNTER → 2022-12-23 09:29 | Outpatient (BNVA) | payer MEDICARE, MEDICAID, SELFPAY ==
[2021-08-26 17:10] VITALS: BP 146/84; BMI 43.9
== END ==
PROVIDERS: PCP Family Medicine; Referring Provider Internal Medicine; Visit Provider Internal Medicine
DX: E04.1 Nontoxic single thyroid nodule (principal)
CPT/HCPCS: 84439; 84443

== ENCOUNTER → 2023-01-04 07:58 | Outpatient (BNVA) | payer MEDICARE, MEDICAID, SELFPAY ==
[2021-08-26 17:10] VITALS: BP 146/84; BMI 43.9
== END ==
PROVIDERS: PCP Family Medicine; Visit Provider Student in an Organized Health Care Education/Training Program
DX: M19.011 Primary osteoarthritis, right shoulder (principal); M25.311 Other instability, right shoulder
CPT/HCPCS: 20610; 73030; 99204; J3301

== ENCOUNTER 2023-01-04 17:29 | Emergency (ER) | payer MEDICARE, MEDICAID, SELFPAY ==
[2021-08-26 17:10] VITALS: BP 146/84; BMI 43.9
--- NOTE | 2023-01-04 17:29 | XRR_ITS ---
PROCEDURE INFORMATION: Exam: XR Chest Exam date and time: 01/04/2023 5:40 PM Age: 67 years old Clinical indication: Pain; Chest pressure; Additional info: Cp TECHNIQUE: Imaging protocol: Radiologic exam of the chest. Views: 1 view. COMPARISON: CR XR chest 1V portable [id number] 12/22/2021 1:21 AM FINDINGS: Lungs: Unremarkable. No consolidation. Pleural spaces: Unremarkable. No pleural effusion. No pneumothorax. Heart/Mediastinum: Unremarkable. No cardiomegaly. Bones/joints: Unremarkable. XR/XR chest 1V portable [id number] IMPRESSION: No acute findings.
[2023-01-04 17:30] VITALS: BMI 46.3
[2023-01-04 17:33] VITALS: BP 130/71; PULSE 156; RESP 26; TEMP 37.1; O2SAT 96
--- NOTE | 2023-01-04 17:34 | ECG_ITS ---
[facility] Test Date: 2023-01-04 Pat Name: Lin Henao Department: Room: Gender: Female Billing Clinician: : 1955 Requested By: Claudia Ram Order Number: [id number] Tylor MD: Kevon Ge M.D. Measurements Intervals [place] Rate: 150 P: 252 VT: 171 QRS: -18 QRSD: 81 T: -51 QT: 229 QTc: 362 Interpretive Statements ECTOPIC ATRIAL TACHYCARDIA, POSSIBLE ATRIAL FLUTTER LOW QRS VOLTAGE IN PRECORDIAL LEADS [QRS DEFLECTION < 1.0 mV IN CHEST LEADS] PATTERN CONSISTENT WITH PULMONARY DISEASE ST DEVIATION AND MODERATE T-WAVE ABNORMALITY, CONSIDER ANTEROLATERAL ISCHEMIA [-0.1+ mV T-WAVE IN V3-V6] ST DEVIATION AND MODERATE T-WAVE ABNORMALITY, CONSIDER INFERIOR ISCHEMIA [-0.1+ mV T-WAVE IN II/aVF] Compared to ECG 12/22/2021 00:34:22 Possible ischemia now present ST (T wave) deviation no longer present Electronically Signed On 01-04-2023 18:39:58 CDT by Kevon Ge M.D. [id number]
[2023-01-04 17:36] VITALS: O2SAT 97
--- NOTE | 2023-01-04 18:01 | W.ED.ARRPALP ---
HPI - Arrhythmia/Palpitations General: Chief Complaint: Arrhythmia/Palpitations Stated Complaint: A-FIB/ RVR, SOB Time Seen by Provider: 01/04/23 17:56 History of Present Illness: Patient presents to the ER by EMS for overheating and shortness of breath. When patient called EMS and they arrived there they found the patient in a very rapid heart rate. Patient has a history of A-fib but she does not have a squirrel man this time. Patient is on metoprolol 75 mg twice daily and also diltiazem ER 120 mg p.o. twice daily. Patient also takes Plavix and Eliquis. Patient denies any chest pain at this time. Review of Systems General: Reports: 10 or more systems reviewed and unremarkable except in HPI and below PFSH ED PFSH: Medical History Atypical chest pain Bipolar depression CAD (coronary artery disease) Chest pain Chronic anticoagulation initiated apixaban 08/2020 for paroxysmal atrial fibrillation Chronic headache Chronic pain syndrome Due to her weight and other comorbidities I do not think that there is much that pain management would be able to do. They can do localized injections or treatments on specific joints but she would never be a surgical candidate. Congestive heart failure Constipation, chronic COPD (chronic obstructive pulmonary disease) Diabetes mellitus type 2 in obese DM type 2 (diabetes mellitus, type 2) Fibromyalgia Generalized anxiety disorder GERD (gastroesophageal reflux disease) History of colonic diverticulitis Hyperlipemia Hypertension, benign Insomnia Major depressive disorder, recurrent, moderate Mixed stress and urge urinary incontinence Nicotine dependence, cigarettes, with other nicotine-induced disorders NONA (obstructive sleep apnea) Uses CPAP Overactive bladder Oxygen dependent 2 L at home Panic disorder [episodic paroxysmal anxiety] Paroxysmal A-fib Paroxysmal atrial fibrillation (~08/2020) Paroxysmal SVT (supraventricular tachycardia) Peripheral Vascular Disease RLS (restless legs syndrome) Small bowel obstruction Wheelchair bound Surgical History H/O thyroidectomy H/O: hysterectomy Hx of cholecystectomy S/P appendectomy Family History Mother , at age 75 Hypertension Father , at age 87 Hypertension Denies family history of Lung disease Stroke Social History Smoking and tobacco status: current every day smoker (1 PPD 45 year history) cigarettes Packs smoked per day: 1 Years cigarettes smoked: 44 Alcohol intake: never Substance/Drug Use: never Adopted: No Caregiver/support person: No Lives independently: Yes Household members: none Housing: Apartment Marital status: / Number of children: 8 Number of grandchildren: 14 Highest education level completed: Some College, No Degree service: No Current occupational status: disabled Pets and animals: Yes Pets & animals: dog(s) Leisure activites: art, music, reading and other Sexually active: No Do you think of yourself as: Straight/Heterosexual Current gender identity: Female Lilliam/Adventism: Hoahaoism Special lilliam needs: No Agree to transfusion: Yes Financial difficulty paying for basics: Not Very Hard Female Reproductive History: Para: 8 Spontaneous abortions: No Physical Exam Const: COMMON NORMALS: no acute distress, average body habitus, patient oriented x3, no limitations, healthy appearing, alert and well nourished HENMT: COMMON NORMALS: normocephalic, atraumatic, hearing grossly normal bilaterally, external ears normal, Normal external nose present and moist oral mucous membranes HEAD & SCALP: normocephalic and atraumatic NOSE: Normal external nose present EXTERNAL EAR: Yes external ears normal Eye: COMMON NORMALS: Equal, round and reactive pupils present, EOMs intact bilaterally, conjunctivae normal and no scleral icterus CONJUNCTIVA: Yes conjunctivae normal PUPIL: Yes Equal, round and reactive pupils present Neck/C-Spine: COMMON NORMALS: full ROM, no lymphadenopathy, supple, no meningeal signs, no JVD and Thyroid normal THYROID: Thyroid normal Chest: COMMONS NORMALS: normal inspection of the chest and normal palpation of entire chest wall Resp: COMMON NORMALS: normal respiratory effort, No retractions, No use of accessory muscles and clear to auscultation bilaterally AUSCULTATION: clear to auscultation bilaterally Cardio: COMMON NORMALS: no JVD; negative for regular rate (Irregularly irregular rhythm and tachycardia) RATE: abnormal rate (Irregularly irregular rhythm and tachycardia) GI: COMMON NORMALS: Normal to inspection, nondistended, normoactive bowel sounds present, Soft to palpation, non-tender, No hepatosplenomegaly present and no masses PALPATION: Yes Soft to palpation and Yes No hepatosplenomegaly present Neuro: COMMON NORMALS: patient oriented x3 SENSORIUM/ORIENTATION: Yes alert MENINGEAL SIGNS: Yes no meningeal signs Course Vital Signs: Vital signs: Vital Signs Temperature 98.8 F 01/04/23 17:33 Pulse Rate 101 H 01/04/23 20:02 Respiratory Rate 26 H 01/04/23 17:33 Blood Pressure 140/74 01/04/23 20:02 Pulse Oximetry 97 01/04/23 20:02 Oxygen Delivery Me thod Room Air 01/04/23 20:02 Oxygen Flow Rate 2 01/04/23 17:36 MDM - Arrhythmia/Palpitations Medical Decision Making Patient presents to the ER with complaints of fast heart rate and shortness of breath. An EKG was performed which showed she was in A-fib with RVR. Patient does have a history of A-fib and is currently treated with metoprolol and Cardizem. Patient was given 10 mg dose of Cardizem and dropped her heart rate from 150s down to 100s. Patient said she felt much better patient was watched for several hours lab work was obtained as well as serial EKGs and patient will be discharged home to follow-up with her PCP on an as-needed basis. Differential Diagnosis Likely artial fibrillation and WPW; Unlikely palpitations, anxiety, sinus tachycardia, artial flutter, ventricular premature beats, supraventricular tachycardia or ventricular tachycardia Medical Records I reviewed the patient's medical records. Lab Data I reviewed the patient's lab results. 01/04/23 18:00 01/04/23 18:00 Radiology Impressions Chest X-Ray 01/04/23 17:29 IMPRESSION: No acute findings. Laboratory Results WBC 8.48 10^3/uL (3.29-11.43) 01/04/23 18:00 RBC 4.50 10^6/uL (3.85-5.65) 01/04/23 18:00 Hgb 12.00 g/dL (11.27-16.99) 01/04/23 18:00 Hct 39.0 % (36-47) 01/04/23 18:00 MCV 86.7 fl (85-98) 01/04/23 18:00 MCH 26.7 pg (27-33) L 01/04/23 18:00 MCHC 30.8 g/dL (30-55) 01/04/23 18:00 RDW 15.3 % (12.1-15.1) H 01/04/23 18:00 Plt Count 195 10^3/cmm (157-399) 01/04/23 18:00 MPV 12.3 fL (7.4-10.4) H 01/04/23 18:00 Neut % (Auto) 77.9 % 01/04/23 18:00 Lymph % (Auto) 16.7 % 01/04/23 18:00 [place] % (Auto) 4.6 % 01/04/23 18:00 Eos % (Auto) 0.4 % 01/04/23 18:00 Baso % (Auto) 0.2 % 01/04/23 18:00 Neut # (Auto) 6.60 10^3/uL (1.8-7.7) 01/04/23 18:00 Lymph # (Auto) 1.4 10^3/uL (0.8-4.8) 01/04/23 18:00 [place] # (Auto) 0.4 10^3/uL (0.2-0.9) 01/04/23 18:00 Eos # (Auto) 0.0 10^3/uL (0.0-0.8) 01/04/23 18:00 Baso # (Auto) 0.0 10^3/uL (0.0-0.1) 01/04/23 18:00 Nucleated RBC % (auto) 0 % 01/04/23 18:00 Nucleated RBCs # 0.0 /100WBC 01/04/23 18:00 PT 14.00 SECONDS (12.1-14.9) 01/04/23 18:00 INR 1.04 (0.8-1.2) 01/04/23 18:00 Sodium 137 mmol/L (136-145) 01/04/23 18:00 Potassium 4.9 mmol/L (3.5-5.1) 01/04/23 18:00 Chloride 99 mmol/L (98-107) 01/04/23 18:00 Carbon Dioxide 27 mmol/L (22-29) 01/04/23 18:00 Anion Gap 15.9 (5-19) 01/04/23 18:00 BUN 12 mg/dL (8-23) 01/04/23 18:00 Creatinine 0.6 mg/dL (0.5-0.9) 01/04/23 18:00 GFR Calculation 100.3 mL/min (90-130) 01/04/23 18:00 Glucose 282 mg/dL (65-115) H 01/04/23 18:00 Calculated Osmolality 294 mOsm/kg (285-295) 01/04/23 18:00 Calcium 9.4 mg/dL (8.5-10.5) 01/04/23 18:00 Magnesium 1.9 mg/dL (1.7-2.3) 01/04/23 18:00 Troponin T Baseline 11 ng/L (0-10) H 01/04/23 18:00 Troponin T 120 Minute 10.85 ng/L (0-10) H 01/04/23 19:57 Delta Troponin T -0.15 ABS# (0-10) L 01/04/23 19:57 EKG Data EKG 1: I personally reviewed and interpreted this EKG as follows: EKG interpretation date: 01/04/23 EKG interpretation time: 17:34 Prior EKG tracings: not available for review Interpretation: EKG shows ventricular rate 150 bpm, IA interval 171, QRS duration 81, QTc of 315, ectopic atrial tachycardia possible atrial flutter, pattern consistent with pulmonary disease, moderate T wave abnormality with negative T waves in V3 456 and 2 and aVF. Other EKG comments: Chest X-Ray 01/04/23 17:29 IMPRESSION: No acute findings. EKG 2: I personally reviewed and interpreted this EKG as follows: EKG interpretation date: 01/04/23 EKG interpretation time: 19:36 Prior EKG tracings: available for review Interpretation: EKG shows ventricular rate 100 beats minute, QRS duration 90, QTc 399, atrial flutter/tachycardia with RVR, ST segment deviation with moderate T wave abnormalities consider inferior ischemia negative T waves in 2 and aVF. Other EKG comments: Chest X-Ray 01/04/23 17:29 IMPRESSION: No acute findings. Discharge Plan Discharge Patient Disposition: Home Clinical Impression: Shortness of breath Atrial fibrillation Qualifiers: Atrial fibrillation type: longstanding persistent Qualified Code(s): I48.11 - Longstanding persistent atrial fibrillation Condition: Stable Prescriptions: No Action melatonin 5 mg capsule 10 mg PO BEDTIME PRN (Reason: insomnia) (DME) miscellaneous medical supply [facility] [place] See Rx Instructions .Route Qty: 1 0RF Rx Instructions: use 1-2l at night (DME) Depend Underwear For Women XL [facility] [place] See Rx Instructions .Route Qty: 360 11RF Rx Instructions: As directed, 12 daily albuterol sulfate [ProAir HFA] 90 mcg/actuation HFA aerosol inhaler 2 puff INHALATION Q6H PRN (Reason: shortness of breath or wheezing) Qty: 8.5 5RF Eliquis 5 mg tablet 5 mg PO BID 30 Days Qty: 60 5RF docusate sodium 100 mg capsule See Rx Instructions .ROUTE .COMPLEX Qty: 360 1RF Dose Instruction: TAKE TWO CAPSULES BY MOUTH TWICE A DAY FOR 30 DAYS Rx Instructions: TAKE TWO CAPSULES BY MOUTH TWICE A DAY FOR 30 DAYS diltiazem HCl 120 mg capsule,extended release 12 hr 120 mg PO BID 90 Days Qty: 180 1RF metoprolol tartrate 75 mg tablet 75 mg PO Q12H 90 Days Qty: 180 1RF duloxetine 60 mg capsule,delayed release(DR/EC) 120 mg PO DAILY Qty: 60 1RF buspirone 15 mg tablet See Rx Instructions .ROUTE .COMPLEX Qty: 90 5RF Dose Instruction: TAKE ONE TABLET BY MOUTH THREE TIMES DAILY FOR ANXIETY Rx Instructions: TAKE ONE TABLET BY MOUTH THREE TIMES DAILY FOR ANXIETY risperidone 0.5 mg tablet See Rx Instructions .ROUTE .COMPLEX Qty: 60 5RF Dose Instruction: TAKE ONE TABLET BY MOUTH TWICE A DAY Rx Instructions: TAKE ONE TABLET BY MOUTH TWICE A DAY cyclobenzaprine 5 mg tablet See Rx Instructions .ROUTE .COMPLEX Qty: 60 5RF Dose Instruction: TAKE TWO TABLETS BY MOUTH NIGHTLY Rx Instructions: TAKE TWO TABLETS BY MOUTH NIGHTLY diclofenac sodium 50 mg tablet,delayed release (DR/EC) 50 mg PO BID PRN (Reason: pain) 30 Days Qty: 60 5RF Rx Instructions: with food furosemide 40 mg tablet 40 mg PO BID 90 Days Qty: 180 1RF Rx Instructions: AT 8 AM AND NOON insulin lispro [Humalog KwikPen Insulin] 100 unit/mL insulin pen See Rx Instructions .ROUTE .COMPLEX Qty: 15 2RF Dose Instruction: INJECT 6 UNITS THREE TIMES A DAY +SS 140-175 1UNIT,176-200 2 UNITS,201-250 3 UNITS,251-299-5 UNITS,300 7UNITS. MAX DAILY DOSE 39 UNITS Rx Instructions: INJECT 6 UNITS THREE TIMES A DAY +SS 140-175 1UNIT,176-200 2 UNITS,201-250 3 UNITS,251-299-5 UNITS,300 7UNITS. MAX DAILY DOSE 39 UNITS nitroglycerin 0.4 mg tablet, sublingual 0.4 mg SUBLINGUAL Q5M PRN (Reason: Chest Pain) Qty: 25 2RF potassium chloride 20 mEq tablet,ER particles/crystals 20 meq PO BID 90 Days Qty: 180 1RF Rx Instructions: FOR 90 DAYS (DME) Dexcom G6 Sensor Device See Rx Instructions .ROUTE .MEDSUPPLY Qty: 9 3RF Rx Instructions: change every 10 days (DME) Dexcom G6 [employer] Misc See Rx Instructions .ROUTE .MEDSUPPLY Qty: 1 1RF Rx Instructions: change every year (DME) Dexcom G6 Transmitter Device See Rx Instructions .ROUTE .MEDSUPPLY Qty: 2 3RF Rx Instructions: change every 3 months pramipexole 0.5 mg tablet 0.5 mg PO .at bedtime 90 Days Qty: 90 0RF oxybutynin chloride 15 mg tablet extended release 24hr See Rx Instructions .ROUTE .COMPLEX Qty: 90 0RF Dose Instruction: TAKE ONE TABLET BY MOUTH DAILY Rx Instructions: TAKE ONE TABLET BY MOUTH DAILY methocarbamol 750 mg tablet 750 mg PO BID PRN (Reason: muscle spasm) 30 Days Qty: 60 5RF pregabalin 75 mg capsule 75 mg PO BID 30 Days Qty: 60 2RF (DME) OneTouch Ultra Test Strip See Rx Instructions .ROUTE .COMPLEX Qty: 50 11RF Dose Instruction: TEST BLOOD SUGAR DAILY Rx Instructions: TEST BLOOD SUGAR DAILY aspirin 81 mg tablet,delayed release (DR/EC) 81 mg PO DAILY 90 Days Qty: 90 3RF polyethylene glycol 3350 [Miralax] 17 gram/dose powder 17 g PO DAILY PRN (Reason: constipation) 30 Days Qty: 510 2RF cholecalciferol (vitamin D3) 1,250 mcg (50,000 unit) capsule 50,000 unit PO .Weekly 60 Days Qty: 10 3RF Rx Instructions: ON MONDAYS hydrocodone-acetaminophen 5-325 mg tablet 1 tab PO DAILY 23 Days Qty: 23 0RF loratadine 10 mg tablet See Rx Instructions .ROUTE .COMPLEX Qty: 90 3RF Dose Instruction: TAKE ONE TABLET BY MOUTH DAILY AT BEDTIME NEEDED FOR ALLERGY SYMPTOMS Rx Instructions: TAKE ONE TABLET BY MOUTH DAILY AT BEDTIME NEEDED FOR ALLERGY SYMPTOMS metformin 1,000 mg tablet See Rx Instructions .ROUTE .COMPLEX Qty: 180 0RF Dose Instruction: TAKE ONE TABLET BY MOUTH TWICE A DAY Rx Instructions: TAKE ONE TABLET BY MOUTH TWICE A DAY clopidogrel 75 mg tablet See Rx Instructions .ROUTE .COMPLEX Qty: 90 1RF Dose Instruction: TAKE ONE TABLET BY MOUTH EVERY DAY Rx Instructions: TAKE ONE TABLET BY MOUTH EVERY DAY suvorexant 20 mg tablet 20 mg PO BEDTIME Qty: 30 5RF miscellaneous medical supply Misc See Rx Instructions miscellaneous .COMPLEX Qty: 1 0RF Rx Instructions: Wheelchair repair as directed; insulin glargine [Lantus Solostar U-100 Insulin] 100 unit/mL (3 mL) insulin pen See Rx Instructions .ROUTE .COMPLEX Qty: 30 1RF Dose Instruction: INJECT 32 UNIT (0.32 ML) SUBCUTANEOUSLY EVERY MORNING Rx Instructions: INJECT 32 UNIT (0.32 ML) SUBCUTANEOUSLY EVERY MORNING bupropion HCl 300 mg tablet extended release 24 hr See Rx Instructions .ROUTE .COMPLEX Qty: 30 5RF Dose Instruction: TAKE ONE TABLET BY MOUTH EVERY MORNING Rx Instructions: TAKE ONE TABLET BY MOUTH EVERY MORNING (DME) pen needle, diabetic [TechLITE Pen Needle] 31 gauge x 5/16 needle See Rx Instructions .ROUTE .COMPLEX Qty: 100 0RF Dose Instruction: TO USE WITH INSULIN 4 TIMES DAILY Rx Instructions: TO USE WITH INSULIN 4 TIMES DAILY famotidine 20 mg tablet 20 mg PO BID 90 Days Qty: 180 0RF multivitamin Tablet 1 tab PO DAILY Qty: 0 ascorbic acid (vitamin C) [Vitamin C] 1,000 mg Tablet 1,000 mg PO DAILY Qty: 0 Discharge Orders: Discharge ED (Routine); Ordered 01/04/23 Ordered By: Juan Del Toro Referrals: Kristine Rodriguez MD [Primary Care Provider] - 1 week Patient Instructions: Atrial Fibrillation Activity Restrictions/Additional Instructions: Please continue take all your medicine as directed. Please follow-up with your family practice doctor in the next 7 days or sooner as needed. If your symptoms return please feel free to return to the ER for further evaluation. Coding Level of Care Code ED Rack Cleaner for Urvashi Shaw
[2023-01-04 18:07] LABS: Basophils % 0.2 %; Eosinophils % 0.4 %; Lymphocytes # 1.4 10^3/uL (0.8-4.8); Lymphocytes % 16.7 %; Mean Corpuscular HGB Conc 30.8 g/dL (30-55); Mean Corpuscular Hemoglobin 26.7 pg (27-33); Mean Corpuscular Volume 86.7 fl (85-98); Mean Platelet Volume 12.3 fL (7.4-10.4); Monocytes # 0.4 10^3/uL (0.2-0.9); Monocytes % 4.6 %; Neutrophils % 77.9 %; Nucleated Red Blood Cells % 0 %; Platelet Count 195 10^3/cmm (157-399); Red Cell Distribution Width 15.3 % (12.1-15.1); White Blood Count 8.48 10^3/uL (3.29-11.43)
[2023-01-04] MEDS: dilTIAZem 5 mg/mL SDV 5 mL 10 MG IVP (18:17)
[2023-01-04 18:19] LABS: INR 1.04 (0.8-1.2)
[2023-01-04 18:25] LABS: Anion Gap 15.9 (5-19); Blood Urea Nitrogen 12 mg/dL (8-23); Calcium 9.4 mg/dL (8.5-10.5); Carbon Dioxide 27 mmol/L (22-29); Chloride 99 mmol/L (98-107); Glomerular Filtration Rate 100.3 mL/min (90-130); Glucose 282 mg/dL (65-115); Osmolality Calculated 294 mOsm/kg (285-295); Potassium 4.9 mmol/L (3.5-5.1); Sodium 137 mmol/L (136-145)
[2023-01-04 18:36] LABS: Troponin(5th) Baseline 11 ng/L (0-10)
--- NOTE | 2023-01-04 19:30 | ECG_ITS ---
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 Measurements Intervals [place] Rate: 100 P: 0 FL: 0 QRS: -10 QRSD: 90 T: -25 QT: 342 QTc: 442 Interpretive Statements ATRIAL FLUTTER/TACHYCARDIA WITH RAPID VENTRICULAR RESPONSE LOW QRS VOLTAGE IN PRECORDIAL LEADS [QRS DEFLECTION < 1.0 mV IN CHEST LEADS] PATTERN CONSISTENT WITH PULMONARY DISEASE ST DEVIATION AND MODERATE T-WAVE ABNORMALITY, CONSIDER INFERIOR ISCHEMIA [-0.1+ mV T-WAVE IN II/aVF] Compared to ECG 01/04/2023 17:34:23 No significant changes Electronically Signed On 01-04-2023 23:16:04 CDT by Kevon Ge M.D. [id number]
[2023-01-04 20:02] VITALS: BP 140/74; PULSE 101; O2SAT 97
[2023-01-04 20:09] LABS: Magnesium 1.9 mg/dL (1.7-2.3)
[2023-01-04 20:29] LABS: Troponin 5 2HR 10.85 ng/L (0-10)
[2023-01-04 20:32] LABS: Troponin 5 2HR Delta -0.15 ABS# (0-10)
[2023-01-04 21:31] VITALS: BP 154/93; PULSE 90; RESP 18; O2SAT 96
--- NOTE | 2023-01-04 21:36 | PC.NURSE ---
Pt on chronic O2 at home. Did not bring O2 tank and states that family is almost already here to lease picker patient and does not have O2 tank either. Pt refusing to call family to grab another O2 tank at this time. Pt verbalized understanding with nurse that pt would be going home to [place] without O2 tank, stating I take responsibility.
== END 2023-01-04 21:53 | disposition home or self-care (01) ==
PROVIDERS: Emergency Medicine; Emergency Provider Emergency Medicine; PCP Family Medicine
DX: I48.11 Longstanding persistent atrial fibrillation (principal); Z79.01 Long term (current) use of anticoagulants; Z79.4 Long term (current) use of insulin; Z79.82 Long term (current) use of aspirin; Z79.02 Long term (current) use of antithrombotics/antiplatelets; Z79.84 Long term (current) use of oral hypoglycemic drugs; F17.210 Nicotine dependence, cigarettes, uncomplicated; I25.10 Atherosclerotic heart disease of native coronary artery without angina pectoris; I11.0 Hypertensive heart disease with heart failure; I50.9 Heart failure, unspecified; J44.9 Chronic obstructive pulmonary disease, unspecified; E11.9 Type 2 diabetes mellitus without complications; E78.5 Hyperlipidemia, unspecified; Z99.81 Dependence on supplemental oxygen; Z99.3 Dependence on wheelchair
CPT/HCPCS: 36415; 71045; 80048; 83735; 84484; 85025; 85610; 93005; 96374; 99285; J3490

== ENCOUNTER 2023-01-05 11:31 | Emergency (ER) | payer MEDICARE, MEDICAID, SELFPAY ==
[2021-08-26 17:10] VITALS: BP 146/84; BMI 43.9
[2023-01-05] VITALS (31 sets, daily range): BP systolic 111–156; BP diastolic 60–97; PULSE 90–173; RESP 14–29; O2SAT 94–99; BMI 46.3
--- NOTE | 2023-01-05 11:38 | XRR_ITS ---
PROCEDURE INFORMATION: Exam: XR Chest Exam date and time: 01/05/2023 11:45 AM Age: 67 years old Clinical indication: Cough and dyspnea; Additional info: Dyspnea/cough TECHNIQUE: Imaging protocol: Radiologic exam of the chest. Views: 1 view. COMPARISON: CR (CHEST, ) 01/04/2023 5:40 PM FINDINGS: Lungs: There is no consolidation. Pleural spaces: There is no pleural effusion or pneumothorax. Heart/Mediastinum: There is mild enlargement of the cardiac silhouette. Bones/joints: Bones are unremarkable. XR/XR chest 1V portable [id number] IMPRESSION: No acute findings.
--- NOTE | 2023-01-05 11:38 | ECG_ITS ---
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 Measurements Intervals [place] Rate: 155 P: 0 NC: 0 QRS: -18 QRSD: 89 T: -69 QT: 241 QTc: 388 Interpretive Statements ATRIAL FLUTTER/TACHYCARDIA WITH RAPID VENTRICULAR RESPONSE LOW QRS VOLTAGE IN PRECORDIAL LEADS [QRS DEFLECTION < 1.0 mV IN CHEST LEADS] PATTERN CONSISTENT WITH PULMONARY DISEASE ST DEVIATION AND MODERATE T-WAVE ABNORMALITY, CONSIDER ANTEROLATERAL ISCHEMIA [-0.1+ mV T-WAVE IN V3-V6] ST DEVIATION AND MODERATE T-WAVE ABNORMALITY, CONSIDER INFERIOR ISCHEMIA [-0.1+ mV T-WAVE IN II/aVF] CRITICAL TEST RESULT Compared to ECG 01/04/2023 19:36:21 No significant changes Electronically Signed On 01-05-2023 15:46:47 CDT by Devyn De La Rosa M.D. [id number]
[2023-01-05 11:49] LABS: Basophils % 0.3 %; Eosinophils % 0.1 %; Hematocrit 38.8 % (36-47); Lymphocytes # 1.7 10^3/uL (0.8-4.8); Lymphocytes % 16.9 %; Mean Corpuscular HGB Conc 31.4 g/dL (30-55); Mean Corpuscular Volume 85.8 fl (85-98); Mean Platelet Volume 12.4 fL (7.4-10.4); Monocytes # 0.6 10^3/uL (0.2-0.9); Monocytes % 5.9 %; Neutrophils # 7.68 10^3/uL (1.8-7.7); Neutrophils % 76.5 %; Nucleated Red Blood Cells % 0 %; Platelet Count 194 10^3/cmm (157-399); Red Blood Count 4.52 10^6/uL (3.85-5.65); Red Cell Distribution Width 15.6 % (12.1-15.1); White Blood Count 10.04 10^3/uL (3.29-11.43)
[2023-01-05] MEDS: metoprolol tartrate 50 mg Tablet 75 MG PO (11:50)
[2023-01-05] MEDS: dilTIAZem ER (24HR) 120 mg Capsule PO (11:51)
[2023-01-05] MEDS: dilTIAZem 5 mg/mL SDV 5 mL 10 MG IVP (11:51)
[2023-01-05 12:07] LABS: Alanine Aminotransferase 28 U/L (0-33); Albumin Level 4.1 g/dL (3.5-5.2); Alkaline Phosphatase 156 U/L (35-105); Anion Gap 16.6 (5-19); Aspartate Amino Transferase 37 U/L (0-32); Blood Urea Nitrogen 12 mg/dL (8-23); Calcium 9.6 mg/dL (8.5-10.5); Carbon Dioxide 25 mmol/L (22-29); Chloride 101 mmol/L (98-107); Globulin 3.5 g/dL (1.3-4.6); Glomerular Filtration Rate 100.3 mL/min (90-130); Glucose 384 mg/dL (65-115); Osmolality Calculated 302 mOsm/kg (285-295); Potassium 4.6 mmol/L (3.5-5.1); Sodium 138 mmol/L (136-145); Total Bilirubin 0.4 mg/dL (0.15-1.2); Total Protein 7.6 g/dL (6.6-8.7)
--- NOTE | 2023-01-05 13:08 | W.ED.ARRPALP ---
HPI - Arrhythmia/Palpitations General: Chief Complaint: Arrhythmia/Palpitations Stated Complaint: A FIB, RVR, SOB Time Seen by Provider: 01/05/23 11:37 Source: patient Mode of arrival: EMS History of Present Illness: 67-year-old female with a known history of atrial fibrillation who unfortunately missed a couple doses of her medications this morning and she is in A-fib with RVR. She not having any chest pain she normally takes diltiazem 120 mg daily as well as metoprolol 75 mg daily in addition to this if she is on Eliquis. She has a history of diabetes mellitus she denies any chest pain or shortness of breath. She states she was on her way driving home she began to feel overheated felt a rapid heart rate she went inside to rest noted her rapid heart rate was causing some shortness of breath. She was given metoprolol in route IV 10 mg but had no improvement of her rate. MD complaint: rapid heart beat and heart racing Duration: constant Severity: mild Associated symptoms: Deny anxiety, cough, diaphoresis, muscle cramps, nausea, paresthesias, pre-syncope, sense of impending doom, short of breath, syncope or vomiting Review of Systems Const: Denies: diaphoresis Card: Denies: syncope or pre-syncope GI: Denies: nausea or vomiting Musc: Denies: muscle cramps Psych: Denies: anxiety PFSH ED PFSH: Medical History Atypical chest pain Bipolar depression CAD (coronary artery disease) Chest pain Chronic anticoagulation initiated apixaban 08/2020 for paroxysmal atrial fibrillation Chronic headache Chronic pain syndrome Due to her weight and other comorbidities I do not think that there is much that pain management would be able to do. They can do localized injections or treatments on specific joints but she would never be a surgical candidate. Congestive heart failure Constipation, chronic COPD (chronic obstructive pulmonary disease) Diabetes mellitus type 2 in obese DM type 2 (diabetes mellitus, type 2) Fibromyalgia Generalized anxiety disorder GERD (gastroesophageal reflux disease) History of colonic diverticulitis Hyperlipemia Hypertension, benign Insomnia Major depressive disorder, recurrent, moderate Mixed stress and urge urinary incontinence Nicotine dependence, cigarettes, with other nicotine-induced disorders NONA (obstructive sleep apnea) Uses CPAP Overactive bladder Oxygen dependent 2 L at home Panic disorder [episodic paroxysmal anxiety] Paroxysmal A-fib Paroxysmal atrial fibrillation (~08/2020) Paroxysmal SVT (supraventricular tachycardia) Peripheral Vascular Disease RLS (restless legs syndrome) Small bowel obstruction Wheelchair bound Surgical History H/O thyroidectomy H/O: hysterectomy Hx of cholecystectomy S/P appendectomy Family History Mother , at age 75 Hypertension Father , at age 87 Hypertension Denies family history of Lung disease Stroke Social History Smoking and tobacco status: current every day smoker (1 PPD 45 year history) cigarettes Packs smoked per day: 1 Years cigarettes smoked: 44 Alcohol intake: never Substance/Drug Use: never Adopted: No Caregiver/support person: No Lives independently: Yes Household members: none Housing: Apartment Marital status: / Number of children: 8 Number of grandchildren: 14 Highest education level completed: Some College, No Degree service: No Current occupational status: disabled Pets and animals: Yes Pets & animals: dog(s) Leisure activites: art, music, reading and other Sexually active: No Do you think of yourself as: Straight/Heterosexual Current gender identity: Female Lilliam/Amish: Yazdanism Special lilliam needs: No Agree to transfusion: Yes Financial difficulty paying for basics: Not Very Hard Female Reproductive History: Para: 8 Spontaneous abortions: No Course Vital Signs: Vital signs: Vital Signs Pulse Rate 102 H 01/05/23 14:07 Respiratory Rate 21 H 01/05/23 13:55 Blood Pressure 156/82 01/05/23 14:07 Pulse Oximetry 96 01/05/23 14:07 Oxygen Delivery Me thod Nasal Cannula 01/05/23 11:50 Oxygen Flow Rate 2 01/05/23 11:50 MDM - Arrhythmia/Palpitations Medical Decision Making Patient was in yesterday with stable issues. Will treat here her symptoms resolved she would prefer to go home. We will go ahead and discharge her home we monitored her for a time her rate remained controlled. If she has recurrence of this again she may need to be admitted for adjustments to her rate control regimen. Return if has further problems. Medical Records I reviewed the patient's medical records. Lab Data I reviewed the patient's lab results. 01/05/23 11:35 01/05/23 11:35 Radiology Impressions Chest X-Ray 01/05/23 11:38 IMPRESSION: No acute findings. Laboratory Results WBC 10.04 10^3/uL (3.29-11.43) 01/05/23 11:35 RBC 4.52 10^6/uL (3.85-5.65) 01/05/23 11:35 Hgb 12.20 g/dL (11.27-16.99) 01/05/23 11:35 Hct 38.8 % (36-47) 01/05/23 11:35 MCV 85.8 fl (85-98) 01/05/23 11:35 MCH 27.0 pg (27-33) 01/05/23 11:35 MCHC 31.4 g/dL (30-55) 01/05/23 11:35 RDW 15.6 % (12.1-15.1) H 01/05/23 11:35 Plt Count 194 10^3/cmm (157-399) 01/05/23 11:35 MPV 12.4 fL (7.4-10.4) H 01/05/23 11:35 Neut % (Auto) 76.5 % 01/05/23 11:35 Lymph % (Auto) 16.9 % 01/05/23 11:35 Greene % (Auto) 5.9 % 01/05/23 11:35 Eos % (Auto) 0.1 % 01/05/23 11:35 Baso % (Auto) 0.3 % 01/05/23 11:35 Neut # (Auto) 7.68 10^3/uL (1.8-7.7) 01/05/23 11:35 Lymph # (Auto) 1.7 10^3/uL (0.8-4.8) 01/05/23 11:35 Greene # (Auto) 0.6 10^3/uL (0.2-0.9) 01/05/23 11:35 Eos # (Auto) 0.0 10^3/uL (0.0-0.8) 01/05/23 11:35 Baso # (Auto) 0.0 10^3/uL (0.0-0.1) 01/05/23 11:35 Nucleated RBC % (auto) 0 % 01/05/23 11:35 Nucleated RBCs # 0.0 /100WBC 01/05/23 11:35 Sodium 138 mmol/L (136-145) 01/05/23 11:35 Potassium 4.6 mmol/L (3.5-5.1) 01/05/23 11:35 Chloride 101 mmol/L (98-107) 01/05/23 11:35 Carbon Dioxide 25 mmol/L (22-29) 01/05/23 11:35 Anion Gap 16.6 (5-19) 01/05/23 11:35 BUN 12 mg/dL (8-23) 01/05/23 11:35 Creatinine 0.6 mg/dL (0.5-0.9) 01/05/23 11:35 GFR Calculation 100.3 mL/min (90-130) 01/05/23 11:35 Glucose 384 mg/dL (65-115) H 01/05/23 11:35 Calculated Osmolality 302 mOsm/kg (285-295) H 01/05/23 11:35 Calcium 9.6 mg/dL (8.5-10.5) 01/05/23 11:35 Total Bilirubin 0.4 mg/dL (0.15-1.2) 01/05/23 11:35 AST 37 U/L (0-32) H 01/05/23 11:35 ALT 28 U/L (0-33) 01/05/23 11:35 Alkaline Phosphatase 156 U/L (35-105) H 01/05/23 11:35 Total Protein 7.6 g/dL (6.6-8.7) 01/05/23 11:35 Albumin 4.1 g/dL (3.5-5.2) 01/05/23 11:35 Globulin 3.5 g/dL (1.3-4.6) 01/05/23 11:35 Discharge Plan Discharge Patient Disposition: Home Clinical Impression: Atrial fibrillation Condition: Stable Prescriptions: No Action melatonin 5 mg capsule 10 mg PO BEDTIME PRN (Reason: insomnia) (DME) miscellaneous medical supply Misc See Rx Instructions .Route Qty: 1 0RF Rx Instructions: use 1-2l at night (DME) Depend Underwear For Women XL Misc See Rx Instructions .Route Qty: 360 11RF Rx Instructions: As directed, 12 daily albuterol sulfate [ProAir HFA] 90 mcg/actuation HFA aerosol inhaler 2 puff INHALATION Q6H PRN (Reason: shortness of breath or wheezing) Qty: 8.5 5RF Eliquis 5 mg tablet 5 mg PO BID 30 Days Qty: 60 5RF diltiazem HCl 120 mg capsule,extended release 12 hr 120 mg PO BID 90 Days Qty: 180 1RF metoprolol tartrate 75 mg tablet 75 mg PO Q12H 90 Days Qty: 180 1RF duloxetine 60 mg capsule,delayed release(DR/EC) 120 mg PO DAILY Qty: 60 1RF diclofenac sodium 50 mg tablet,delayed release (DR/EC) 50 mg PO BID PRN (Reason: pain) 30 Days Qty: 60 5RF Rx Instructions: with food furosemide 40 mg tablet 40 mg PO BID 90 Days Qty: 180 1RF Rx Instructions: AT 8 AM AND NOON insulin lispro [Humalog KwikPen Insulin] 100 unit/mL insulin pen See Rx Instructions .ROUTE .COMPLEX Qty: 15 2RF Dose Instruction: INJECT 6 UNITS THREE TIMES A DAY +SS 140-175 1UNIT,176-200 2 UNITS,201-250 3 UNITS,251-299-5 UNITS,300 7UNITS. MAX DAILY DOSE 39 UNITS Rx Instructions: INJECT 6 UNITS THREE TIMES A DAY +SS 140-175 1UNIT,176-200 2 UNITS,201-250 3 UNITS,251-299-5 UNITS,300 7UNITS. MAX DAILY DOSE 39 UNITS nitroglycerin 0.4 mg tablet, sublingual 0.4 mg SUBLINGUAL Q5M PRN (Reason: Chest Pain) Qty: 25 2RF potassium chloride 20 mEq tablet,ER particles/crystals 20 meq PO BID 90 Days Qty: 180 1RF (DME) Dexcom G6 Sensor Device See Rx Instructions .ROUTE .MEDSUPPLY Qty: 9 3RF Rx Instructions: change every 10 days (DME) Dexcom G6 Machine Sorter Misc See Rx Instructions .ROUTE .MEDSUPPLY Qty: 1 1RF Rx Instructions: change every year (DME) Dexcom G6 Transmitter Device See Rx Instructions .ROUTE .MEDSUPPLY Qty: 2 3RF Rx Instructions: change every 3 months methocarbamol 750 mg tablet 750 mg PO BID PRN (Reason: muscle spasm) 30 Days Qty: 60 5RF pregabalin 75 mg capsule 75 mg PO BID 30 Days Qty: 60 2RF (DME) OneTouch Ultra Test Strip See Rx Instructions .ROUTE .COMPLEX Qty: 50 11RF Dose Instruction: TEST BLOOD SUGAR DAILY Rx Instructions: TEST BLOOD SUGAR DAILY aspirin 81 mg tablet,delayed release (DR/EC) 81 mg PO DAILY 90 Days Qty: 90 3RF polyethylene glycol 3350 [Miralax] 17 gram/dose powder 17 g PO DAILY PRN (Reason: constipation) 30 Days Qty: 510 2RF cholecalciferol (vitamin D3) 1,250 mcg (50,000 unit) capsule 50,000 unit PO .Weekly 60 Days Qty: 10 3RF Rx Instructions: ON MONDAYS suvorexant 20 mg tablet 20 mg PO BEDTIME Qty: 30 5RF insulin glargine [Lantus Solostar U-100 Insulin] 100 unit/mL (3 mL) insulin pen See Rx Instructions .ROUTE .COMPLEX Qty: 30 1RF Dose Instruction: INJECT 32 UNIT (0.32 ML) SUBCUTANEOUSLY EVERY MORNING Rx Instructions: INJECT 45 UNIT (0.32 ML) SUBCUTANEOUSLY EVERY MORNING (DME) pen needle, diabetic [TechLITE Pen Needle] 31 gauge x 5/16 needle See Rx Instructions .ROUTE .COMPLEX Qty: 100 0RF Dose Instruction: TO USE WITH INSULIN 4 TIMES DAILY Rx Instructions: TO USE WITH INSULIN 4 TIMES DAILY famotidine 20 mg tablet 20 mg PO BID 90 Days Qty: 180 0RF multivitamin Tablet 1 tab PO DAILY Qty: 0 ascorbic acid (vitamin C) [Vitamin C] 1,000 mg Tablet 1,000 mg PO DAILY Qty: 0 duloxetine 30 mg capsule,delayed release(DR/EC) 30 mg PO DAILY oxybutynin chloride 15 mg tablet extended release 24hr 15 mg PO DAILY clopidogrel 75 mg tablet 75 mg PO DAILY pramipexole 0.5 mg tablet 0.5 mg PO BEDTIME metformin 1,000 mg tablet 1,000 mg PO BID docusate sodium 100 mg capsule 200 mg PO BID loratadine 10 mg tablet 10 mg PO BEDTIME PRN (Reason: Allergy Symptoms) risperidone 0.5 mg tablet 0.5 mg PO BID buspirone 15 mg tablet 15 mg PO TID cyclobenzaprine 5 mg tablet 10 mg PO QPM bupropion HCl 300 mg tablet extended release 24 hr 300 mg PO DAILY Discharge Orders: Discharge ED (Routine); Ordered 01/05/23 Ordered By: Kirby Julien Referrals: Kristine Rodriguez MD [Primary Care Provider] - Discharge Diet: Usual diet Discharge Activity: Resume usual activity Patient Instructions: Opioid Safety, Pain Management Activity Restrictions/Additional Instructions: You were seen today for atrial fibrillation. This was likely caused by the delay in your regular medications. Your heart rate improved when we gave you your regular home medications. If you experience this in the future would recommend taking your medications as soon as you realize you have missed a dose. If you have persistent symptoms return to the emergency room. Coding Level of Care Code ED Oil Burner Mechanic for Urvashi Shaw
== END 2023-01-05 14:14 | disposition home or self-care (01) ==
PROVIDERS: Emergency Provider Family Medicine; PCP Family Medicine
DX: I48.91 Unspecified atrial fibrillation (principal); Z79.01 Long term (current) use of anticoagulants; Z79.02 Long term (current) use of antithrombotics/antiplatelets; Z79.82 Long term (current) use of aspirin; Z79.4 Long term (current) use of insulin; I25.10 Atherosclerotic heart disease of native coronary artery without angina pectoris; I11.0 Hypertensive heart disease with heart failure; I50.9 Heart failure, unspecified; J44.9 Chronic obstructive pulmonary disease, unspecified; E78.5 Hyperlipidemia, unspecified; Z99.81 Dependence on supplemental oxygen; F17.210 Nicotine dependence, cigarettes, uncomplicated
CPT/HCPCS: 71045; 80053; 85025; 93005; 96374; 99285; 99291; J3490

== ENCOUNTER → 2023-01-11 09:06 | Outpatient (BNVA) | payer MEDICARE, MEDICAID, SELFPAY ==
[2021-08-26 17:10] VITALS: BP 146/84; BMI 43.9
== END ==
PROVIDERS: PCP Family Medicine; Visit Provider Family Medicine
DX: E11.69 Type 2 diabetes mellitus with other specified complication; E66.9 Obesity, unspecified
CPT/HCPCS: 80048; 83036

== ENCOUNTER 2023-01-31 06:00 | Outpatient (RCR) | payer MEDICARE, MEDICAID, SELFPAY ==
[2021-08-26 17:10] VITALS: BP 146/84; BMI 43.9
== END 2023-03-01 23:59 | disposition home or self-care (01) ==
LOC: MPT 06:00
PROVIDERS: PCP Family Medicine; Visit Provider Student in an Organized Health Care Education/Training Program
DX: M25.511 Pain in right shoulder (principal)
CPT/HCPCS: 97110; 97140; 97162; G0283

== ENCOUNTER → 2023-02-21 09:04 | Outpatient (BNVA) | payer MEDICARE, MEDICAID, SELFPAY ==
[2021-08-26 17:10] VITALS: BP 146/84; BMI 43.9
== END ==
PROVIDERS: PCP Family Medicine; Visit Provider Internal Medicine
DX: C73 Malignant neoplasm of thyroid gland (principal); R79.89 Other specified abnormal findings of blood chemistry; E11.9 Type 2 diabetes mellitus without complications; Z79.4 Long term (current) use of insulin; Z79.84 Long term (current) use of oral hypoglycemic drugs
CPT/HCPCS: 99214

== ENCOUNTER 2023-03-02 06:00 | Outpatient (RCR) | payer MEDICARE, MEDICAID, SELFPAY ==
[2021-08-26 17:10] VITALS: BP 146/84; BMI 43.9
== END 2023-03-31 23:59 | disposition home or self-care (01) ==
LOC: MPT 06:00
PROVIDERS: PCP Family Medicine; Visit Provider Student in an Organized Health Care Education/Training Program
DX: M25.511 Pain in right shoulder (principal)
CPT/HCPCS: 97110; G0283

== ENCOUNTER → 2023-03-05 16:34 | Outpatient (BNVA) | payer MEDICARE, MEDICAID, SELFPAY ==
[2021-08-26 17:10] VITALS: BP 146/84; BMI 43.9
== END ==
PROVIDERS: PCP Family Medicine; Visit Provider Nurse Practitioner Family
DX: L03.116 Cellulitis of left lower limb (principal); L02.416 Cutaneous abscess of left lower limb
CPT/HCPCS: 87070; 87075; 87077; 87184; 87205

== ENCOUNTER → 2023-03-10 11:46 | Outpatient (BNVA) | payer MEDICARE, MEDICAID, SELFPAY ==
[2021-08-26 17:10] VITALS: BP 146/84; BMI 43.9
== END ==
PROVIDERS: PCP Family Medicine; Visit Provider Internal Medicine
DX: R21 Rash and other nonspecific skin eruption (principal); C73 Malignant neoplasm of thyroid gland; R79.89 Other specified abnormal findings of blood chemistry; E11.9 Type 2 diabetes mellitus without complications; Z79.4 Long term (current) use of insulin
CPT/HCPCS: 99214

== ENCOUNTER 2023-04-01 06:00 | Outpatient (RCR) | payer MEDICARE, MEDICAID, SELFPAY ==
[2021-08-26 17:10] VITALS: BP 146/84; BMI 43.9
== END 2023-05-01 23:59 | disposition home or self-care (01) ==
LOC: MPT 06:00
PROVIDERS: PCP Family Medicine; Visit Provider Student in an Organized Health Care Education/Training Program
DX: M25.511 Pain in right shoulder (principal)
CPT/HCPCS: 97110; 97140; G0283

== ENCOUNTER → 2023-04-08 09:47 | Outpatient (BNVA) | payer MEDICARE, MEDICAID, SELFPAY ==
[2021-08-26 17:10] VITALS: BP 146/84; BMI 43.9
== END ==
PROVIDERS: PCP Family Medicine; Visit Provider Internal Medicine Cardiovascular Disease
DX: L03.116 Cellulitis of left lower limb (principal); L02.416 Cutaneous abscess of left lower limb; F33.1 Major depressive disorder, recurrent, moderate; M19.019 Primary osteoarthritis, unspecified shoulder; Z79.01 Long term (current) use of anticoagulants; M79.7 Fibromyalgia; I48.0 Paroxysmal atrial fibrillation; I11.0 Hypertensive heart disease with heart failure; I50.9 Heart failure, unspecified; F17.218 Nicotine dependence, cigarettes, with other nicotine-induced disorders; E11.69 Type 2 diabetes mellitus with other specified complication; E66.9 Obesity, unspecified; Z79.4 Long term (current) use of insulin
CPT/HCPCS: 99214

== ENCOUNTER → 2023-04-12 09:04 | Outpatient (BNVA) | payer MEDICARE, MEDICAID, SELFPAY ==
[2021-08-26 17:10] VITALS: BP 146/84; BMI 43.9
== END ==
PROVIDERS: PCP Family Medicine; Visit Provider Family Medicine
DX: M19.011 Primary osteoarthritis, right shoulder (principal); G89.4 Chronic pain syndrome; M19.90 Unspecified osteoarthritis, unspecified site; M79.7 Fibromyalgia; G25.81 Restless legs syndrome; M54.2 Cervicalgia; M25.519 Pain in unspecified shoulder; E11.69 Type 2 diabetes mellitus with other specified complication; E66.9 Obesity, unspecified; C73 Malignant neoplasm of thyroid gland; R79.89 Other specified abnormal findings of blood chemistry; Z79.899 Other long term (current) drug therapy
CPT/HCPCS: 80053; 80061; 82043; 83036; 84439; 84443

== ENCOUNTER 2023-05-02 06:00 | Outpatient (RCR) | payer MEDICARE, MEDICAID, SELFPAY ==
[2023-05-02 01:43] VITALS: BP 135/71; BMI 46.3
== END 2023-06-01 23:59 | disposition home or self-care (01) ==
LOC: MPT 06:00
PROVIDERS: PCP Family Medicine; Visit Provider Student in an Organized Health Care Education/Training Program
DX: M25.511 Pain in right shoulder (principal)
CPT/HCPCS: 97110; 97140; G0283

== ENCOUNTER 2023-06-02 06:00 | Outpatient (RCR) | payer MEDICARE, MEDICAID, SELFPAY | END 2023-06-30 23:59 | disposition home or self-care (01) | LOC: MPT 06:00 | PROVIDERS: PCP Family Medicine; Visit Provider Student in an Organized Health Care Education/Training Program | DX: M25.511 Pain in right shoulder (principal) | CPT/HCPCS: 97110; 97140; G0283 ==

== ENCOUNTER → 2023-06-07 07:59 | Outpatient (BNVA) | payer MEDICARE, MEDICAID, SELFPAY ==
[2023-06-10 11:38] VITALS: BP 135/71; BMI 46.3
== END ==
PROVIDERS: PCP Family Medicine; Visit Provider Nurse Practitioner Family
DX: D17.21 Benign lipomatous neoplasm of skin and subcutaneous tissue of right arm (principal); L85.3 Xerosis cutis; L57.0 Actinic keratosis; S00.80XA Unspecified superficial injury of other part of head, initial encounter; S00.501A Unspecified superficial injury of lip, initial encounter; X58.XXXA Exposure to other specified factors, initial encounter; L60.8 Other nail disorders; I87.2 Venous insufficiency (chronic) (peripheral)
CPT/HCPCS: 17000; 99204

== ENCOUNTER → 2023-06-09 07:41 | Outpatient (BNVA) | payer MEDICARE, MEDICAID, SELFPAY ==
[2023-06-07 09:25] VITALS: BP 135/71; BMI 46.3
== END ==
PROVIDERS: PCP Family Medicine; Visit Provider Physician Assistant
DX: M25.311 Other instability, right shoulder (principal); M19.011 Primary osteoarthritis, right shoulder
CPT/HCPCS: 20610; 99213; J3301

== ENCOUNTER → 2023-06-10 10:22 | Outpatient (BNVA) | payer MEDICARE, MEDICAID, SELFPAY ==
[2023-06-10 11:38] VITALS: BP 135/71; BMI 46.3
== END ==
PROVIDERS: PCP Family Medicine; Visit Provider Internal Medicine
DX: R79.89 Other specified abnormal findings of blood chemistry (principal); I50.9 Heart failure, unspecified; C73 Malignant neoplasm of thyroid gland; E11.9 Type 2 diabetes mellitus without complications; Z79.84 Long term (current) use of oral hypoglycemic drugs; Z79.4 Long term (current) use of insulin
CPT/HCPCS: 99214

== ENCOUNTER 2023-07-01 06:00 | Outpatient (RCR) | payer MEDICARE, MEDICAID, SELFPAY ==
[2023-06-10 11:38] VITALS: BP 135/71; BMI 46.3
== END 2023-07-31 23:59 | disposition home or self-care (01) ==
LOC: MPT 06:00
PROVIDERS: PCP Family Medicine; Visit Provider Student in an Organized Health Care Education/Training Program
DX: M25.511 Pain in right shoulder (principal)
CPT/HCPCS: 97110; 97140; G0283

== ENCOUNTER 2023-07-04 19:35 | Emergency (ER) | payer MEDICARE, MEDICAID, SELFPAY ==
[2023-06-10 11:38] VITALS: BP 135/71; BMI 46.3
[2023-07-04 19:41] VITALS: BP 153/73; PULSE 63; RESP 16; TEMP 36.7; O2SAT 96; BMI 47.2
--- NOTE | 2023-07-04 19:49 | XRR_ITS ---
PROCEDURE INFORMATION: Exam: XR Right Foot Exam date and time: 07/04/2023 7:59 PM Age: 68 years old Clinical indication: Injury or trauma; Fall; Blunt trauma; Foot; Right TECHNIQUE: Imaging protocol: Radiologic exam of the right foot. Views: 3 or more views. COMPARISON: CR XR foot RT min 3V* [id number] 02/26/2021 9:58 AM FINDINGS: Bones/joints: There is mild scattered degenerative changes of the interphalangeal joints and 1st tarsometatarsal joint. Tiny inferior calcaneal spur. Tiny Achilles enthesophyte. Dorsal osteophytes of the midfoot joints. Soft tissues: There soft swelling at the dorsum foot. XR/XR foot RT min 3V* [id number] IMPRESSION: No acute fracture or dislocation.
--- NOTE | 2023-07-04 19:49 | XRR_ITS ---
PROCEDURE INFORMATION: Exam: XR Right Ankle Exam date and time: 07/04/2023 8:02 PM Age: 68 years old Clinical indication: Injury or trauma; Fall; Blunt trauma; Ankle; Right TECHNIQUE: Imaging protocol: Radiologic exam of the right ankle. Views: 3 or more views. COMPARISON: CR (LOW EXM, ) 07/04/2023 7:59 PM FINDINGS: Bones/joints: Mild degenerative disease of the ankle joint. No acute fracture or dislocation. Tiny inferior calcaneal spur. Tiny Achilles enthesophyte. No ankle joint effusion. Soft tissues: There is soft tissue swelling around the ankle joint. Soft swelling at the dorsum of the foot. XR/XR ankle RT min 3V* [id number] IMPRESSION: No acute fracture or dislocation.
--- NOTE | 2023-07-04 20:12 | W.ED.EXTPRO ---
HPI - Extremity Problem General: Chief complaint: Extremity Injury, Lower Stated complaint: Right foot pain Time Seen by Provider: 07/04/23 19:37 Source: patient Mode of arrival: ambulatory Limitations: no limitations History of Present Illness: 68-year-old female who states that she fell at home on Tuesday she states that she did twist her foot she has pain to the dorsum of her right foot states that was the only injury from the fall she denies hitting her head denies any neck pain denies any knee pain. Associated symptoms: Deny chest pain, fever(s) or rash Review of Systems Const: Denies: fever(s), chills, body aches or change in appetite ENMT: Denies: throat pain or dental pain Card: Denies: chest pain Resp: Denies: dyspnea GI: Denies: abdominal pain, nausea, vomiting or diarrhea Musc: Reports: extremity pain; Denies: neck pain or back pain Skin/Breast: Denies: rash Neuro: Denies: headache(s) PFSH ED PFSH: Medical History Insomnia Wheelchair bound Oxygen dependent 2 L at home Small bowel obstruction History of colonic diverticulitis Congestive heart failure Paroxysmal SVT (supraventricular tachycardia) Nicotine dependence, cigarettes, with other nicotine-induced disorders DM type 2 (diabetes mellitus, type 2) Chest pain Atypical chest pain Paroxysmal A-fib Chronic anticoagulation initiated apixaban 08/2020 for paroxysmal atrial fibrillation Paroxysmal atrial fibrillation (~08/2020) NONA (obstructive sleep apnea) Uses CPAP Fibromyalgia Peripheral Vascular Disease Mixed stress and urge urinary incontinence Chronic pain syndrome Due to her weight and other comorbidities I do not think that there is much that pain management would be able to do. They can do localized injections or treatments on specific joints but she would never be a surgical candidate. Bipolar depression Hypertension, benign Overactive bladder RLS (restless legs syndrome) Constipation, chronic COPD (chronic obstructive pulmonary disease) GERD (gastroesophageal reflux disease) CAD (coronary artery disease) Diabetes mellitus type 2 in obese Hyperlipemia Chronic headache Panic disorder [episodic paroxysmal anxiety] Generalized anxiety disorder Major depressive disorder, recurrent, moderate Surgical History H/O: hysterectomy Hx of cholecystectomy S/P appendectomy H/O thyroidectomy Family History Mother , at age 75 Hypertension Father , at age 87 Hypertension Denies family history of Lung disease Stroke Social History Smoking and tobacco/nicotine status: current every day tobacco/nicotine user cigarettes Packs smoked per day: 1 Years cigarettes smoked: 44 Alcohol intake: never Substance/Drug Use: never Adopted: No Caregiver/support person: No Lives independently: Yes Household members: none Housing: Apartment Marital status: / Number of children: 8 Number of grandchildren: 14 Highest education level completed: Some College, No Degree service: No Current occupational status: disabled Pets and animals: Yes Pets & animals: dog(s) Leisure activites: art, music, reading and other Sexually active: No Do you think of yourself as: Straight/Heterosexual Current gender identity: Female Lilliam/Moravian: Restorationist Special lilliam needs: No Agree to transfusion: Yes Female Reproductive History: Para: 8 Spontaneous abortions: No Physical Exam Const: COMMON NORMALS: no acute distress HENMT: COMMON NORMALS: normocephalic and atraumatic HEAD & SCALP: normocephalic and atraumatic Eye: COMMON NORMALS: conjunctivae normal CONJUNCTIVA: Yes conjunctivae normal Chest: COMMONS NORMALS: normal inspection of the chest Resp: COMMON NORMALS: normal respiratory effort Extremity: NARRATIVE EXTREMITY EXAM: Bruising noted to right foot no obvious deformity Psych: COMMON NORMALS: mental status grossly normal Skin: COMMON NORMALS: no rashes or lesions noted GENERAL SKIN EXAM: no rashes or lesions noted Course Vital Signs: Vital signs: Vital Signs Temperature 98.1 F 07/04/23 19:41 Pulse Rate 62 07/04/23 20:23 Respiratory Rate 18 07/04/23 20:23 Blood Pressure 153/73 07/04/23 19:41 Pulse Oximetry 95 07/04/23 20:23 Oxygen Delivery Me thod Room Air 07/04/23 19:41 MDM - Extremity (Nontraumatic) Medical Decision Making Patient presents here with foot contusion from a fall x-ray shows no fracture patient uses a electric wheelchair at home she only bears weight to transition herself she is stable for discharge back home XR interpretation done by ED provider, pending radiology final review ED provider radiology interpretation(s): xr foot and ankle: no fx Discharge Plan Discharge Patient Disposition: Home Clinical Impression: Contusion of foot, right Qualifiers: Encounter type: initial encounter Qualified Code(s): S90.31XA - Contusion of right foot, initial encounter Condition: Stable Prescriptions: No Action melatonin 5 mg capsule 10 mg PO BEDTIME PRN (Reason: insomnia) (DME) miscellaneous medical supply Misc See Rx Instructions .Route Qty: 1 0RF Rx Instructions: use 1-2l at night Eliquis 5 mg tablet 5 mg PO BID 30 Days Qty: 60 5RF albuterol sulfate [ProAir HFA] 90 mcg/actuation HFA aerosol inhaler 2 puff INHALATION Q6H PRN (Reason: shortness of breath or wheezing) Qty: 8.5 5RF clopidogrel 75 mg tablet 75 mg PO DAILY 90 Days Qty: 90 1RF cyclobenzaprine 5 mg tablet 10 mg PO QPM 90 Days Qty: 180 1RF diclofenac sodium 50 mg tablet,delayed release (DR/EC) 50 mg PO BID PRN (Reason: pain) 30 Days Qty: 60 5RF Rx Instructions: with food famotidine 20 mg tablet 20 mg PO BID 90 Days Qty: 180 1RF potassium chloride 20 mEq tablet,ER particles/crystals 20 meq PO BID 90 Days Qty: 180 1RF oxybutynin chloride 15 mg tablet extended release 24hr 15 mg PO DAILY 90 Days Qty: 90 1RF furosemide 40 mg tablet 40 mg PO BID 90 Days Qty: 180 1RF Rx Instructions: AT 8 AM AND NOON metoprolol tartrate 100 mg tablet 100 mg PO Q12H 90 Days Qty: 180 1RF nitroglycerin 0.4 mg tablet, sublingual 0.4 mg SUBLINGUAL Q5M PRN (Reason: Chest Pain) Qty: 25 2RF hydrocodone-acetaminophen 5-325 mg tablet 1 tab PO DAILY 30 Days Qty: 30 0RF pregabalin 75 mg capsule 75 mg PO BID 30 Days Qty: 60 3RF pramipexole 0.5 mg tablet See Rx Instructions .ROUTE .COMPLEX Qty: 90 0RF Dose Instruction: TAKE ONE TABLET BY MOUTH AT BEDTIME FOR 90 DAYS Rx Instructions: TAKE ONE TABLET BY MOUTH AT BEDTIME FOR 90 DAYS methocarbamol 750 mg tablet 750 mg PO BID PRN (Reason: muscle spasm) 30 Days Qty: 60 5RF metformin 1,000 mg tablet 1,000 mg PO BID 90 Days Qty: 180 1RF insulin glargine [Lantus Solostar U-100 Insulin] 100 unit/mL (3 mL) insulin pen 64 unit SUBCUT QAM atorvastatin 40 mg tablet 40 mg PO DAILY Qty: 90 0RF polyethylene glycol 3350 [Miralax] 17 gram/dose powder 17 g PO DAILY PRN (Reason: constipation) 30 Days Qty: 510 2RF buspirone 15 mg tablet See Rx Instructions .ROUTE .COMPLEX Qty: 90 5RF Dose Instruction: TAKE ONE TABLET BY MOUTH THREE TIMES DAILY FOR ANXIETY Rx Instructions: TAKE ONE TABLET BY MOUTH THREE TIMES DAILY FOR ANXIETY (DME) OneTouch Ultra Test Strip See Rx Instructions .ROUTE .COMPLEX Qty: 50 11RF Dose Instruction: TEST BLOOD SUGAR DAILY Rx Instructions: TEST BLOOD SUGAR 4 times a day (DME) [facility] See Rx Instructions .Route Qty: 360 11RF Rx Instructions: As directed, 12 daily (DME) blood-glucose meter [Blood Glucose Monitoring] Kit See Rx Instructions .Route Qty: 1 0RF Rx Instructions: Use to test blood sugar 4 times daily (DME) Dexcom G7 Sensor Device See Rx Instructions .Route Qty: 1 2RF Rx Instructions: As directed (DME) Dexcom G7 Mail Technician [facility] See Rx Instructions .Route Qty: 1 0RF Rx Instructions: As directed miscellaneous medical supply [facility] See Rx Instructions miscellaneous .COMPLEX Qty: 1 0RF Rx Instructions: Wheelchair repair as directed; diltiazem HCl 120 mg capsule,extended release 12 hr 120 mg PO BID Qty: 180 1RF (DME) pen needle, diabetic [TechLITE Pen Needle] 31 gauge x 5/16 needle See Rx Instructions .ROUTE .COMPLEX Qty: 100 2RF Dose Instruction: TO USE WITH INSULIN 4 TIMES DAILY Rx Instructions: TO USE WITH INSULIN 4 TIMES DAILY docusate sodium 100 mg capsule See Rx Instructions .ROUTE .COMPLEX Qty: 360 1RF Dose Instruction: TAKE TWO CAPSULES BY MOUTH TWICE A DAY FOR 30 DAYS Rx Instructions: TAKE TWO CAPSULES BY MOUTH TWICE A DAY FOR 30 DAYS cholecalciferol (vitamin D3) 1,250 mcg (50,000 unit) capsule See Rx Instructions .ROUTE .COMPLEX Qty: 4 3RF Dose Instruction: TAKE ONE CAPSULE BY MOUTH WEEKLY ON MONDAYS FOR 2 MONTHS Rx Instructions: TAKE ONE CAPSULE BY MOUTH WEEKLY ON MONDAYS FOR 2 MONTHS Belsomra 20 mg tablet 20 mg PO .qhs PRN (Reason: insomnia) 30 Days Qty: 30 3RF insulin lispro [Humalog KwikPen Insulin] 100 unit/mL insulin pen See Rx Instructions .ROUTE .COMPLEX Qty: 15 1RF Dose Instruction: INJECT 6 UNITS SUB-Q THREE TIMES A DAY 15 MINUTES BEFORE MEALS Rx Instructions: INJECT 6 UNITS SUB-Q THREE TIMES A DAY 15 MINUTES BEFORE MEALS insulin glargine [Lantus Solostar U-100 Insulin] 100 unit/mL (3 mL) insulin pen 68 unit SUBCUT DAILY 90 Days Qty: 65 0RF duloxetine 60 mg capsule,delayed release(DR/EC) 120 mg PO DAILY Qty: 60 0RF aspirin 81 mg tablet,delayed release (DR/EC) 81 mg PO DAILY 90 Days Qty: 90 0RF multivitamin Tablet 1 tab PO DAILY Qty: 0 ascorbic acid (vitamin C) [Vitamin C] 1,000 mg Tablet 1,000 mg PO DAILY Qty: 0 loratadine 10 mg tablet 10 mg PO BEDTIME PRN (Reason: Allergy Symptoms) risperidone 0.5 mg tablet 0.5 mg PO BID bupropion HCl 300 mg tablet extended release 24 hr 300 mg PO DAILY Discharge Orders: Discharge ED (Routine); Ordered 07/04/23 Ordered By: Claudia Ram Referrals: Kristine Rodriguez MD [Primary Care Provider] - 4-7 days Discharge Diet: Advance as tolerated Discharge Activity: Resume usual activity Patient Instructions: Foot Contusion (ED) Coding Level of Care Code ED Computer System Validation Specialist for Urvashi Shaw
[2023-07-04] MEDS: naproxen 500 mg Tablet PO (20:16)
[2023-07-04 20:23] VITALS: PULSE 62; RESP 18; O2SAT 95
== END 2023-07-04 20:25 | disposition home or self-care (01) ==
PROVIDERS: Emergency Provider Emergency Medicine; PCP Family Medicine
DX: S90.31XA Contusion of right foot, initial encounter (principal); Z79.01 Long term (current) use of anticoagulants; Z79.02 Long term (current) use of antithrombotics/antiplatelets; Z79.84 Long term (current) use of oral hypoglycemic drugs; Z79.4 Long term (current) use of insulin; Z79.82 Long term (current) use of aspirin; F17.210 Nicotine dependence, cigarettes, uncomplicated; Z99.81 Dependence on supplemental oxygen; I11.0 Hypertensive heart disease with heart failure; I50.9 Heart failure, unspecified; E11.9 Type 2 diabetes mellitus without complications; J44.9 Chronic obstructive pulmonary disease, unspecified; I25.10 Atherosclerotic heart disease of native coronary artery without angina pectoris; E78.5 Hyperlipidemia, unspecified; W19.XXXA Unspecified fall, initial encounter
CPT/HCPCS: 73610; 73630; 99283

== ENCOUNTER → 2023-07-05 09:26 | Outpatient (BNVA) | payer MEDICARE, MEDICAID, SELFPAY ==
[2023-06-10 11:38] VITALS: BP 135/71; BMI 46.3
== END ==
PROVIDERS: PCP Family Medicine; Visit Provider Psychiatry & Neurology Psychiatry
DX: R79.89 Other specified abnormal findings of blood chemistry; E11.9 Type 2 diabetes mellitus without complications
CPT/HCPCS: 80053; 80061; 83036; 84439; 84443

== ENCOUNTER → 2023-07-18 09:05 | Outpatient (BNVA) | payer MEDICARE, MEDICAID, SELFPAY ==
[2023-06-10 11:38] VITALS: BP 135/71; BMI 46.3
== END ==
PROVIDERS: PCP Family Medicine; Visit Provider Family Medicine
DX: I50.9 Heart failure, unspecified
CPT/HCPCS: 82043

== ENCOUNTER 2023-08-01 06:00 | Outpatient (RCR) | payer MEDICARE, MEDICAID, SELFPAY ==
[2023-06-10 11:38] VITALS: BP 135/71; BMI 46.3
== END 2023-08-04 23:59 | disposition home or self-care (01) ==
LOC: MPT 06:00
PROVIDERS: PCP Family Medicine; Visit Provider Student in an Organized Health Care Education/Training Program
DX: M25.511 Pain in right shoulder (principal)
CPT/HCPCS: 97110; G0283

== ENCOUNTER → 2023-09-07 08:48 | Outpatient (BNVA) | payer MEDICARE, MEDICAID, SELFPAY ==
[2023-06-10 11:38] VITALS: BP 135/71; BMI 46.3
== END ==
PROVIDERS: PCP Family Medicine; Visit Provider Dermatology
DX: L60.8 Other nail disorders (principal); L81.4 Other melanin hyperpigmentation
CPT/HCPCS: 99213

== ENCOUNTER → 2023-09-27 11:31 | Outpatient (BNVA) | payer MEDICARE, MEDICAID, SELFPAY ==
[2023-09-27 12:37] VITALS: BP 135/71; BMI 46.3
== END ==
PROVIDERS: PCP Family Medicine; Visit Provider Internal Medicine
DX: R79.89 Other specified abnormal findings of blood chemistry (principal); C73 Malignant neoplasm of thyroid gland; F33.1 Major depressive disorder, recurrent, moderate; E11.9 Type 2 diabetes mellitus without complications; Z79.4 Long term (current) use of insulin; Z79.84 Long term (current) use of oral hypoglycemic drugs
CPT/HCPCS: 99214

== ENCOUNTER → 2023-10-03 09:35 | Outpatient (BNVA) | payer MEDICARE, MEDICAID, SELFPAY ==
[2023-09-27 12:37] VITALS: BP 135/71; BMI 46.3
== END ==
PROVIDERS: PCP Family Medicine; Visit Provider Nurse Practitioner Family
DX: D17.21 Benign lipomatous neoplasm of skin and subcutaneous tissue of right arm (principal); L85.3 Xerosis cutis; L60.8 Other nail disorders; I87.2 Venous insufficiency (chronic) (peripheral); L81.4 Other melanin hyperpigmentation
CPT/HCPCS: 99214

== ENCOUNTER → 2023-10-13 09:09 | Outpatient (BNVA) | payer MEDICARE, MEDICAID, SELFPAY ==
[2023-09-27 12:37] VITALS: BP 135/71; BMI 46.3
== END ==
PROVIDERS: PCP Family Medicine; Visit Provider Family Medicine
DX: H10.10 Acute atopic conjunctivitis, unspecified eye (principal); R79.89 Other specified abnormal findings of blood chemistry; I50.9 Heart failure, unspecified; M19.011 Primary osteoarthritis, right shoulder
CPT/HCPCS: 80053; 80061; 83036

== ENCOUNTER 2023-10-28 15:02 | Observation (INO) | payer MEDICARE, MEDICAID, SELFPAY ==
[2023-10-28] VITALS (15 sets, daily range): BP systolic 104–143; BP diastolic 65–91; PULSE 91–194; RESP 16–32; TEMP 37–37.3; O2SAT 92–97; BMI 51.5; BMI 44.6; BMI 56.4
--- NOTE | 2023-10-28 15:02 | ECG_ITS ---
[facility] Test Date: 2023-10-28 Pat Name: Lin Henao Department: Room: Gender: Female Dining Room Busser: : [id number] Requested By: Kirby Ceja Order Number: [id number] Tylor MD: Herber Benoit M.D. Measurements Intervals [place] Rate: 63 P: 236 TN: 164 QRS: -14 QRSD: 75 T: -37 QT: 435 QTc: 446 Interpretive Statements Atrial fibrillation with rapid ventricular of around 130 bpm LOW QRS VOLTAGE IN PRECORDIAL LEADS [QRS DEFLECTION < 1.0 mV IN CHEST LEADS] POSSIBLE ANTERIOR MYOCARDIAL INFARCTION , OF INDETERMINATE AGE [30 ms Q WAVE IN V3/V4, OR R < 0.2 mV IN V4] ST DEVIATION AND MODERATE T-WAVE ABNORMALITY, CONSIDER LATERAL ISCHEMIA [-0.1+ mV T-WAVE IN I/aVL/V5/V6] ST DEVIATION AND MODERATE T-WAVE ABNORMALITY, CONSIDER INFERIOR ISCHEMIA [-0.1+ mV T-WAVE IN II/aVF] Compared to ECG 01/05/2023 11:35:50 Myocardial infarct finding now present T-wave abnormality still present Possible ischemia still present Electronically Signed On 10-28-2023 20:44:08 CDT by Herber Benoit M.D. [email or web address]
--- NOTE | 2023-10-28 15:09 | XR_ITS ---
WS: [id number] Exam: XR chest 1V portable [id number] Date/Time of Exam: 10/28/2023 3:25 PM Reason For Exam: dyspnea/cough Comparison 01/05/2023. Lungs are clear and fully inflated. Normal cardiomediastinal silhouette and inderjit onal bony elements. No pleural effusions. XR/XR chest 1V portable [id number] IMPRESSION: 1. No acute cardiopulmonary finding.
[2023-10-28 15:34] LABS: Basophils % 0.5 %; Eosinophils # 0.1 10^3/uL (0.0-0.8); Eosinophils % 1.4 %; Lymphocytes # 1.7 10^3/uL (0.8-4.8); Lymphocytes % 21.2 %; Mean Corpuscular HGB Conc 27.3 g/dL (30-55); Mean Corpuscular Hemoglobin 22.3 pg (27-33); Mean Corpuscular Volume 81.7 fl (85-98); Mean Platelet Volume 12.6 fL (7.4-10.4); Monocytes # 0.6 10^3/uL (0.2-0.9); Monocytes % 7.9 %; Neutrophils # 5.42 10^3/uL (1.8-7.7); Neutrophils % 68.7 %; Nucleated Red Blood Cells % 0 %; Platelet Count 153 10^3/cmm (157-399); Red Blood Count 3.67 10^6/uL (3.85-5.65); Red Cell Distribution Width 16.3 % (12.1-15.1); White Blood Count 7.88 10^3/uL (3.29-11.43)
--- NOTE | 2023-10-28 15:35 | W.ED.ARRPALP ---
HPI - Arrhythmia/Palpitations General: Chief Complaint: Arrhythmia/Palpitations Stated Complaint: elevated hr Time Seen by Provider: 10/28/23 15:07 Source: patient Mode of arrival: ambulatory History of Present Illness: Six 8-year-old female presents emergency room complaining of rapid heart rate. She states she has intermittently had this for the last week she has a known history of atrial fibrillation. She is on apixaban as well as diltiazem and metoprolol. She states at home her heart rate has been up to the 180s to even to the 200s. Patient denies any change in medications recently. Time I seen patient she is resting comfortably heart rate is in the 60s and she denies any symptoms at this time. MD complaint: rapid heart beat and heart racing Associated symptoms: Deny anxiety, cough, diaphoresis, muscle cramps, nausea, paresthesias, pre-syncope, sense of impending doom, short of breath, syncope or vomiting Treatments prior to arrival: beta-richy and calcium channel richy Review of Systems Const: Denies: fever(s), chills or diaphoresis Card: Denies: chest pain, syncope or pre-syncope Resp: Denies: dyspnea GI: Denies: abdominal pain, nausea, vomiting, hematemesis, coffee ground emesis, change in stool character, hematochezia or melena : Denies: dysuria, urinary frequency or urinary urgency Musc: Denies: neck pain, back pain or muscle cramps Skin/Breast: Denies: rash Psych: Denies: anxiety [facility] ED PFSH: Medical History Insomnia Wheelchair bound Oxygen dependent 2 L at home Small bowel obstruction History of colonic diverticulitis Congestive heart failure Paroxysmal SVT (supraventricular tachycardia) Nicotine dependence, cigarettes, with other nicotine-induced disorders DM type 2 (diabetes mellitus, type 2) Chest pain Atypical chest pain Paroxysmal A-fib Chronic anticoagulation initiated apixaban 08/2020 for paroxysmal atrial fibrillation Paroxysmal atrial fibrillation (~08/2020) NONA (obstructive sleep apnea) Uses CPAP Fibromyalgia Peripheral Vascular Disease Mixed stress and urge urinary incontinence Chronic pain syndrome Due to her weight and other comorbidities I do not think that there is much that pain management would be able to do. They can do localized injections or treatments on specific joints but she would never be a surgical candidate. Bipolar depression Hypertension, benign Overactive bladder RLS (restless legs syndrome) Constipation, chronic COPD (chronic obstructive pulmonary disease) GERD (gastroesophageal reflux disease) CAD (coronary artery disease) Diabetes mellitus type 2 in obese Hyperlipemia Chronic headache Panic disorder [episodic paroxysmal anxiety] Generalized anxiety disorder Major depressive disorder, recurrent, moderate Surgical History H/O: hysterectomy Hx of cholecystectomy S/P appendectomy H/O thyroidectomy Family History Mother , at age 75 Hypertension Father , at age 87 Hypertension Denies family history of Lung disease Stroke Social History Smoking and tobacco/nicotine status: current every day tobacco/nicotine user cigarettes Packs smoked per day: 1 Years cigarettes smoked: 44 Alcohol intake: never Substance/Drug Use: never Adopted: No Caregiver/support person: No Lives independently: Yes Household members: none Housing: Apartment Marital status: / Number of children: 8 Number of grandchildren: 14 Highest education level completed: Some College, No Degree service: No Current occupational status: disabled Pets and animals: Yes Pets & animals: dog(s) Leisure activites: art, music, reading and other Sexually active: No Do you think of yourself as: Straight/Heterosexual Current gender identity: Female Lilliam/Judaism: Latter Day Special lilliam needs: No Agree to transfusion: Yes Female Reproductive History: Para: 8 Spontaneous abortions: No Physical Exam Const: GENERAL APPEARANCE: cooperative and comfortable ORIENTATION/CONSCIOUSNESS: Yes awake, Yes oriented to person, Yes oriented to place and Yes oriented to time HENMT: COMMON NORMALS: normocephalic, atraumatic and hearing grossly normal bilaterally HEAD & SCALP: normocephalic and atraumatic Resp: COMMON NORMALS: normal respiratory effort, No retractions, No use of accessory muscles and clear to auscultation bilaterally AUSCULTATION: clear to auscultation bilaterally Cardio: COMMON NORMALS: No murmurs present (Cardio) RATE: bradycardic RHYTHM: abnormal rhythm irregularly irregular GI: COMMON NORMALS: Soft to palpation and No hepatosplenomegaly present AUSCULTATION: Yes normoactive bowel sounds PALPATION: Yes Soft to palpation, No Tenderness to palpation present (GI), No Guarding due to palpation present (GI) and Yes No hepatosplenomegaly present Extremity: COMMON NORMALS: normal to inspection, capillary refill normal, no clubbing, cyanosis or edema, no calf tenderness and no pedal edema Neuro: SENSORIUM/ORIENTATION: Yes oriented to person, Yes oriented to place and Yes oriented to time Skin: COMMON NORMALS: no rashes or lesions noted GENERAL SKIN EXAM: no rashes or lesions noted Course Vital Signs: Vital signs: Vital Signs Temperature 97.7 F 10/29/23 02:30 Pulse Rate 92 10/29/23 05:44 Respiratory Rate 16 10/29/23 04:00 Blood Pressure 136/92 10/29/23 04:00 Pulse Oximetry 100 10/29/23 04:00 Oxygen Delivery Me thod Nasal Cannula 10/29/23 04:00 Oxygen Flow Rate 4 10/29/23 04:00 MDM - Arrhythmia/Palpitations Medical Decision Making Patient is having tachybradycardia syndrome while at rest or even with minimal exertion of sitting up or moving to a bedside commode she will go from heart rate of low 60s to the 150s and 60s which she will be symptomatic with. No significant chest pain associated with EKGs done when rhythm changes were noted. She is already on metoprolol and diltiazem. I ordered amiodarone bolus and drip by the time the amiodarone bolus and a drip arrived from pharmacy she had returned back to a rate of the 60s. We monitored her for a bit her rapid rate recurred and the amiodarone was started. Will admit her to the hospitalist service on amiodarone drip. Medical Records I reviewed the patient's medical records. Lab Data I reviewed the patient's lab results. 10/29/23 03:24 10/29/23 03:24 Radiology Impressions Chest X-Ray 10/29/23 02:13 IMPRESSION: Moderate interstitial coarsening which appears slightly worsened when compared to prior study may be related to differences in technique. Pulmonary edema could also account for short interval change of interstitial appearance. Laboratory Results WBC 7.88 10^3/uL (3.29-11.43) 10/28/23 15:28 RBC 3.67 10^6/uL (3.85-5.65) L 10/28/23 15: Hgb 8.20 g/dL (11.27-16.99) L 10/28/23 15: Hct 30.0 % (36-47) L 10/28/23 15: MCV 81.7 fl (85-98) L 10/28/23 15: MCH 22.3 pg (27-33) L 10/28/23 15: MCHC 27.3 g/dL (30-55) L 10/28/23 15:28 RDW 16.3 % (12.1-15.1) H 10/28/23 15: Plt Count 153 10^3/cmm (157-399) L 10/28/23 15: MPV 12.6 fL (7.4-10.4) H 10/28/23: Neut % (Auto) 68.7 % 10/28/23 15: Lymph % (Auto) 21.2 % 10/28/23: Putnam % (Auto) 7.9 % 10/28/23 15: Eos % (Auto) 1.4 % 10/28/23: Baso % (Auto) 0.5 % 10/28/23: Neut # (Auto) 5.42 10^3/uL (1.8-7.7) 10/28/23: Lymph # (Auto) 1.7 10^3/uL (0.8-4.8) 10/28/23: [place]nam # (Auto) 0.6 10^3/uL (0.2-0.9) 10/28/23: Eos # (Auto) 0.1 10^3/uL (0.0-0.8) 10/28/23: Baso # (Auto) 0.0 10^3/uL (0.0-0.1) 10/28/23: Nucleated RBC % (auto) 0 % 10/28/23: Nucleated RBCs # 0.0 /100WBC 10/28/23 15: Sodium 138 mmol/L (136-145) 10/28/23 15: Potassium 4.4 mmol/L (3.5-5.1) 10/28/23 15:28 Chloride 102 mmol/L (98-107) 10/28/23 15:28 Carbon Dioxide 23 mmol/L (22-29) 10/28/23 15:28 Anion Gap 17.4 (5-19) 10/28/23 15:28 BUN 13 mg/dL (8-23) 10/28/23 15:28 Creatinine 0.5 mg/dL (0.5-0.9) 10/28/23 15:28 GFR Calculation 123.4 mL/min (90-130) 10/28/23 15:28 Glucose 273 mg/dL (65-115) H 10/28/23 15:28 Calculated Osmolality 296 mOsm/kg (285-295) H 10/28/23 15:28 Calcium 8.7 mg/dL (8.5-10.5) 10/28/23 15:28 Iron 23 ug/dL (37-145) L 10/28/23 15:28 TIBC 460 mcg/dl 10/28/23 15:28 % Saturation 5.0 % (20-50) L 10/28/23 15:28 Unsat Iron Binding 437 ug/dL (112-347) H 10/28/23 15:28 Ferritin 15 ng/mL (15-150) 10/28/23 15:28 Total Bilirubin 0.3 mg/dL (0.15-1.2) 10/28/23 15:28 AST 39 U/L (0-32) H 10/28/23 15:28 ALT 16 U/L (0-33) 10/28/23 15:28 Alkaline Phosphatase 155 U/L (35-105) H 10/28/23 15:28 Troponin T Baseline 17 ng/L (0-10) H 10/28/23 15:28 Troponin T 120 Minute 19.65 ng/L (0-10) H 10/28/23 17:12 Delta Troponin T 2.65 ABS# (0-10) 10/28/23 17:12 Total Protein 7.3 g/dL (6.6-8.7) 10/28/23 15:28 Albumin 3.6 g/dL (3.5-5.2) 10/28/23 15:28 Globulin 3.7 g/dL (1.3-4.6) 10/28/23 15:28 TSH 0.94 uIU/mL (0.27-4.20) 10/28/23 15:28 TSH Cancelled 10/28/23 15:28 All radiology interpretation(s) finalized by discharge Discharge Plan Discharge Patient Disposition: Admitted As Inpatient Admit Provider: Rehana Szymanski Clinical Impression: Tachy-andra syndrome, Acute anemia, Atrial flutter Condition: Stable Coding Level of Care Code ED Assistant Professor Of Surgery for Urvashi Shaw
[2023-10-28 15:52] LABS: Troponin(5th) Baseline 17 ng/L (0-10)
--- NOTE | 2023-10-28 16:05 | ECG_ITS ---
[facility] Test Date: 2023-10-28 Pat Name: Lin Henao Department: Room: Gender: Female Sinker Puller: : 1955 Requested By: Kirby Ceja Order Number: [id number] Tylor MD: Herber Benoit M.D. Measurements Intervals [place] Rate: 143 P: 248 ND: 152 QRS: -2 QRSD: 90 T: -9 QT: 272 QTc: 420 Interpretive Statements Atrial fibrillation with rapid ventricular rate LOW QRS VOLTAGE IN PRECORDIAL LEADS [QRS DEFLECTION < 1.0 mV IN CHEST LEADS] POSSIBLE ANTERIOR MYOCARDIAL INFARCTION , OF INDETERMINATE AGE [30 ms Q WAVE IN V3/V4, OR R < 0.2 mV IN V4] MODERATE T-WAVE ABNORMALITY, CONSIDER INFERIOR ISCHEMIA [-0.1+ mV T-WAVE IN II/aVF] Compared to ECG 10/28/2023 15:02:00 Ectopic atrial rhythm no longer present Myocardial infarct finding still present T-wave abnormality still present Possible ischemia still present Electronically Signed On 10-29-2023 19:14:59 CDT by Herber Benoit M.D. [id number]
[2023-10-28 16:58] LABS: Alanine Aminotransferase 16 U/L (0-33); Albumin Level 3.6 g/dL (3.5-5.2); Alkaline Phosphatase 155 U/L (35-105); Aspartate Amino Transferase 39 U/L (0-32); Blood Urea Nitrogen 13 mg/dL (8-23); Calcium 8.7 mg/dL (8.5-10.5); Carbon Dioxide 23 mmol/L (22-29); Creatinine Clr Calc Pharmacy 87.3541; Globulin 3.7 g/dL (1.3-4.6); Glomerular Filtration Rate 123.4 mL/min (90-130); Glucose 273 mg/dL (65-115); Thyroid Stimulating Hormone 0.94 uIU/mL (0.27-4.20); Total Bilirubin 0.3 mg/dL (0.15-1.2); Total Protein 7.3 g/dL (6.6-8.7)
[2023-10-28] MEDS: amiodarone 150 MG/100 ML PREMIX 400 MG IV (17:02)
[2023-10-28 17:11] LABS: Anion Gap 17.4 (5-19); Chloride 102 mmol/L (98-107); Osmolality Calculated 296 mOsm/kg (285-295); Potassium 4.4 mmol/L (3.5-5.1); Sodium 138 mmol/L (136-145)
[2023-10-28 17:35] LABS: Troponin 5 2HR 19.65 ng/L (0-10); Troponin 5 2HR Delta 2.65 ABS# (0-10)
--- NOTE | 2023-10-28 18:14 | P.HP_ITS ---
Providers/Chief Complaint 2 Admitting Physician: Rehana Szymanski MD Primary Care Provider: Kristine Rodriguez MD Chief Complaint: elevated hr History of Present Illness Lin Henao is a 68 year old female who lives in apartment the dog has multiple comorbid conditions take more than 20 medications, has history of chronic A-fib takes aspirin Plavix and Eliquis presented to hospital for not feeling well. She describes her not feeling well as feeling hot. She is not describing any chest pain but stating that her stool color is like dark liquefied she, she has been falling in the past but nothing recently, she only has taken diltiazem in the morning, she is due for second dose of diltiazem and metoprolol in the ER she was diagnosed with A-fib RVR which could worsen ambulation, she was put on amiodarone drip at the time evaluation heart rate is in low 60s with stable blood pressure. I have started on clear liquid diet discontinue aspirin Plavix and Eliquis requested call blood repeat H&H started on Protonix Decided to discontinue amiodarone drip If she is FOBT positive she may need EGD in the morning She is endorsing weight gain and shortness of breath Review of Systems 2 Const: Denies: fever(s) Eyes: Denies: change in vision ENMT: Denies: throat pain Card: Reports: swelling of feet/ankles; Denies: chest pain Resp: Reports: dyspnea GI: Denies: abdominal pain Medications/Allergies Home Medications Medication Instructions Recorded Confirmed Last Taken Type ascorbic acid (vitamin C) 1,000 mg 1,000 mg PO DAILY ##0 10/09/20 10/13/23 01/04/23 History tablet (Vitamin C) multivitamin 1 tab PO DAILY ##0 10/09/20 10/13/23 01/04/23 History melatonin 5 mg capsule 10 mg PO BEDTIME PRN insomnia 10/27/20 10/13/23 12/15/21 History miscellaneous medical supply #1 ea 04/06/21 10/13/23 Unknown Rx polyethylene glycol 3350 17 17 g PO DAILY PRN constipation 30 03/22/22 10/13/23 Unknown Rx gram/dose oral powder (Miralax) days #510 grams nitroglycerin 0.4 mg sublingual 0.4 mg sublingual Q5M PRN Chest 04/15/22 10/13/23 Unknown Rx tablet Pain #25 tabs blood sugar diagnostic (OneTouch #50 strips 01/28/23 10/13/23 Unknown Rx Ultra Test strips) diaper,brief,adult,disposable #360 ea 01/31/23 10/13/23 Unknown Rx (Depend Underwear For Women XL) blood-glucose meter (Blood Glucose #1 ea 02/08/23 10/13/23 Unknown Rx Monitoring kit) blood-glucose meter,continuous #1 ea 02/08/23 10/13/23 Unknown Rx (Dexcom G7 Brooch Maker Novelty) miscellaneous medical supply See Rx Instructions miscellaneous 02/21/23 10/13/23 Unknown Rx .COMPLEX #1 ea pen needle, diabetic 31 gauge x #100 ea 04/18/23 10/13/23 Unknown Rx 5/16 (TechLITE Pen Needle) docusate sodium 100 mg capsule See Rx Instructions .Route 04/23/23 10/13/23 Unknown Rx .COMPLEX #360 caps suvorexant 20 mg tablet (Belsomra) 20 mg PO .qhs PRN insomnia 30 days 05/31/23 10/13/23 Unknown Rx #30 tabs insulin lispro 100 unit/mL See Rx Instructions .Route 06/15/23 10/13/23 Unknown Rx subcutaneous pen (Humalog KwikPen .COMPLEX #15 mL (U-100) Insulin) bupropion HCl 300 mg 24 hr tablet, 300 mg PO DAILY #30 tabs 07/05/23 10/13/23 Unknown Rx extended release buspirone 15 mg tablet See Rx Instructions .Route 07/05/23 10/13/23 Unknown Rx .COMPLEX #90 tabs duloxetine 60 mg capsule,delayed 120 mg (2 x 60 mg) PO DAILY #60 07/05/23 10/13/23 Unknown Rx release caps albuterol sulfate 90 mcg/actuation 2 puff inhalation Q6H PRN 07/18/23 10/13/23 Unknown Rx aerosol inhaler (ProAir HFA) shortness of breath or wheezing #8.5 grams apixaban 5 mg tablet (Eliquis) 5 mg PO BID 30 days #60 tabs 07/18/23 10/13/23 Unknown Rx clopidogrel 75 mg tablet 75 mg PO DAILY 90 days #90 tabs 07/18/23 10/13/23 Unknown Rx famotidine 20 mg tablet 20 mg PO BID 90 days #180 tabs 07/18/23 10/13/23 Unknown Rx furosemide 40 mg tablet 40 mg PO BID 90 days #180 tabs 07/18/23 10/13/23 Unknown Rx metformin 1,000 mg tablet 1,000 mg PO BID 90 days #180 tabs 07/18/23 10/13/23 Unknown Rx methocarbamol 750 mg tablet 750 mg PO BID PRN muscle spasm 30 07/18/23 10/13/23 Unknown Rx days #60 tabs metoprolol tartrate 100 mg tablet 100 mg PO Q12H 90 days #180 tabs 07/18/23 10/13/23 Unknown Rx oxybutynin chloride 15 mg 15 mg PO DAILY 90 days #90 tabs 07/18/23 10/13/23 Unknown Rx tablet,extended release 24 hr potassium chloride 20 mEq 20 meq PO BID 90 days #180 tabs 07/18/23 10/13/23 Unknown Rx tablet,extended release(part/cryst) pramipexole 0.5 mg tablet See Rx Instructions .Route 07/18/23 10/13/23 Unknown Rx .COMPLEX #90 tabs atorvastatin 40 mg tablet 40 mg PO DAILY #90 tabs 08/10/23 10/13/23 Unknown Rx cholecalciferol (vitamin D3) 1,250 See Rx Instructions .Route 08/16/23 10/13/23 Unknown Rx mcg (50,000 unit) capsule .COMPLEX #4 caps blood-glucose sensor (Dexcom G7 #3 ea 08/19/23 10/13/23 Unknown Rx Sensor device) cyclobenzaprine 5 mg tablet 10 mg (2 x 5 mg) PO QPM 90 days 08/29/23 10/13/23 Unknown Rx #180 tabs miscellaneous medical supply See Rx Instructions miscellaneous 09/08/23 10/13/23 Unknown Rx .COMPLEX #1 ea insulin glargine 100 unit/mL (3 68 unit (0.68 mL) SUBCUT DAILY 90 09/13/23 10/13/23 Unknown Rx mL) subcutaneous pen (Lantus days #65 mL Solostar U-100 Insulin) loratadine 10 mg tablet (Allergy See Rx Instructions .Route 09/20/23 10/13/23 Unknown Rx Relief (loratadine)) .COMPLEX #90 tabs aspirin 81 mg tablet,delayed See Rx Instructions .Route 09/28/23 10/13/23 Unknown Rx release .COMPLEX #90 tabs diltiazem HCl 120 mg 120 mg PO BID #180 caps 10/04/23 10/13/23 Unknown Rx capsule,extended release 12 hr azelastine 0.05 % eye drops 1 drp ophthalmic (eye) BID 1 week 10/13/23 10/13/23 Unknown Rx #6 mL risperidone 0.5 mg tablet 0.5 mg PO .qhs #30 tabs 10/13/23 10/13/23 Unknown Rx diclofenac sodium 50 mg 50 mg PO BID PRN pain 30 days #60 10/17/23 10/17/23 Unknown Rx tablet,delayed release tabs hydrocodone 5 mg-acetaminophen 325 1 tab PO DAILY pain, severe 30 10/17/23 10/17/23 Unknown Rx mg tablet days #30 tabs miscellaneous medical supply See Rx Instructions miscellaneous 10/17/23 10/17/23 Unknown Rx .COMPLEX #1 ea pregabalin 75 mg capsule 75 mg PO BID 30 days #60 caps 10/17/23 10/17/23 Unknown Rx Allergies Allergy/AdvReac Type Severity Reaction Status Date / Time propoxyphene [From Darvon] Allergy Unknown Unknown Verified 10/13/23 07:48 fluoxetine [From Prozac] AdvReac Severe ADR-Halluci Verified 10/13/23 07:48 nating PFSH Acute 2 PFSH: Medical History Insomnia Wheelchair bound Oxygen dependent 2 L at home Small bowel obstruction History of colonic diverticulitis Congestive heart failure Paroxysmal SVT (supraventricular tachycardia) Nicotine dependence, cigarettes, with other nicotine-induced disorders DM type 2 (diabetes mellitus, type 2) Chest pain Atypical chest pain Paroxysmal A-fib Chronic anticoagulation initiated apixaban 08/2020 for paroxysmal atrial fibrillation Paroxysmal atrial fibrillation (~08/2020) NONA (obstructive sleep apnea) Uses CPAP Fibromyalgia Peripheral Vascular Disease Mixed stress and urge urinary incontinence Chronic pain syndrome Due to her weight and other comorbidities I do not think that there is much that pain management would be able to do. They can do localized injections or treatments on specific joints but she would never be a surgical candidate. Bipolar depression Hypertension, benign Overactive bladder RLS (restless legs syndrome) Constipation, chronic COPD (chronic obstructive pulmonary disease) GERD (gastroesophageal reflux disease) CAD (coronary artery disease) Diabetes mellitus type 2 in obese Hyperlipemia Chronic headache Panic disorder [episodic paroxysmal anxiety] Generalized anxiety disorder Major depressive disorder, recurrent, moderate Surgical History H/O: hysterectomy Hx of cholecystectomy S/P appendectomy H/O thyroidectomy Family History Mother , at age 75 Hypertension Father , at age 87 Hypertension Denies family history of Lung disease Stroke Social History Smoking and tobacco/nicotine status: current every day tobacco/nicotine user cigarettes Packs smoked per day: 1 Years cigarettes smoked: 44 Alcohol intake: never Substance/Drug Use: never Adopted: No Caregiver/support person: No Lives independently: Yes Household members: none Housing: Apartment Marital status: / Number of children: 8 Number of grandchildren: 14 Highest education level completed: Some College, No Degree service: No Current occupational status: disabled Pets and animals: Yes Pets & animals: dog(s) Leisure activites: art, music, reading and other Sexually active: No Do you think of yourself as: Straight/Heterosexual Current gender identity: Female Lilliam/Caodaism: Restoration Special lilliam needs: No Agree to transfusion: Yes Female Reproductive History: Para: 8 Spontaneous abortions: No Vitals/I&O/Wt Last Vital Signs Temp 98.6 F 10/28/23 15:06 Pulse 194 H 10/28/23 17:00 Resp 18 10/28/23 15:06 BP 143/91 10/28/23 17:00 Pulse Ox 93 10/28/23 17:00 O2 Del Method Nasal Cannula 10/28/23 17:00 O2 Flow Rate 2.5 10/28/23 17:00 10/28/23 10/28/23 10/28/23 06:59 14:59 22:59 Intake Total 100 / 100 Balance 100 / 100 Weight last 48 hrs Weight 117.934 kg Physical Exam 2 Narrative: Uses 2 L of oxygen at baseline CHF without acute exacerbation Venous's dermatitis Morbidly obese A-fib without RVR Hemodynamic stable Pleasant and cooperative No acute discomfort Pleasant cooperative Data 10/28/23 15:28 10/28/23 15:28 A&P Assessment and plan (1) Congestive heart failure: Qualifiers: Heart failure type: unspecified Heart failure chronicity: chronic Qualified Code(s): I50.9 - Heart failure, unspecified (2) Paroxysmal A-fib: (3) Chronic anticoagulation: (4) Diabetes mellitus type 2 in obese: (5) GERD (gastroesophageal reflux disease): Qualifiers: Esophagitis presence: without esophagitis Qualified Code(s): K21.9 - Gastro-esophageal reflux disease without esophagitis (6) Constipation, chronic: (7) Rotator cuff dysfunction: (8) Acute anemia: Plan A-fib RVR Discontinue amiodarone drip Hold off on Eliquis Plavix and aspirin Concern for GI bleed Requested Protonix Clear liquid diet for now May need EGD by tomorrow Repeat H&H I will continue Cardizem and metoprolol for now Acute microcytic anemia Hemoglobin has dropped significantly no hemodynamic instability Patient endorsing dark-colored stool Start Protonix Clear liquid diet N.p.o. after midnight General surgery consult Full code Type 2 diabetes patient takes 108 units of Lantus I will do low-dose for now Check A1c TSH B12 Patient lives in an apartment with her dog CHF without acute exacerbation Continue Lasix with potassium supplementation Attestations 2 Medical Necessity Statement*: Anticipating discharge within 48 hours Diagnoses Chronic congestive heart failure, unspecified heart failure type I50.9 Heart failure type: unspecified Heart failure chronicity: chronic Paroxysmal A-fib I48.0 Chronic anticoagulation Z79.01 Diabetes mellitus type 2 in obese E11.69; E66.9 Gastroesophageal reflux disease without esophagitis K21.9 Esophagitis presence: without esophagitis Constipation, chronic K59.09 Rotator cuff dysfunction M67.919 Acute anemia D64.9
[2023-10-28 18:49] LABS: Hematocrit 29.9 % (36-47)
[2023-10-28 19:11] LABS: Ferritin 15 ng/mL (15-150); Iron 23 ug/dL (37-145); Total Iron Binding Capacity 460 mcg/dl; Unsaturated Iron Binding 437 ug/dL (112-347)
[2023-10-28] MEDS: lactulose oral liq 20 gm/30 mL UDC 30 GM PO (19:19)
[2023-10-28] MEDS: pantoprazole 40 mg SDV IVP (19:20)
[2023-10-28] MEDS: metoprolol tartrate 50 mg Tablet 100 MG PO (19:20)
[2023-10-28] MEDS: risperiDONE 0.25 mg Tablet 0.5 MG PO (20:57)
[2023-10-28 21:07] LABS: Glucose Point of Care 261 mg/dL (70-110)
--- NOTE | 2023-10-28 21:09 | ECG_ITS ---
[facility] Test Date: 2023-10-28 Pat Name: Lin Henao Department: Room: Gender: Female Hot Shot: : 1955 Requested By: Kirby Ceja Order Number: [id number] Tylor MD: Herber Benoit M.D. Measurements Intervals [place] Rate: 149 P: 228 NM: 171 QRS: 1 QRSD: 74 T: -59 QT: 253 QTc: 399 Interpretive Statements Atrial fibrillation with rapid ventricular rate LOW QRS VOLTAGE IN PRECORDIAL LEADS [QRS DEFLECTION < 1.0 mV IN CHEST LEADS] POSSIBLE ANTERIOR MYOCARDIAL INFARCTION , OF INDETERMINATE AGE [30 ms Q WAVE IN V3/V4, OR R < 0.2 mV IN V4] MODERATE T-WAVE ABNORMALITY, CONSIDER INFERIOR ISCHEMIA [-0.1+ mV T-WAVE IN II/aVF] Compared to ECG 10/28/2023 16:05:35 No significant changes Electronically Signed On 10-29-2023 19:15:25 CDT by Herber Benoit M.D. [id number]
[2023-10-29] VITALS (54 sets, daily range): BP systolic 100–158; BP diastolic 59–110; PULSE 90–123; RESP 11–29; TEMP 36.3–37.1; O2SAT 85–100; BMI 55.5
--- NOTE | 2023-10-29 02:07 | ECG_ITS ---
[facility] Test Date: 2023-10-29 Pat Name: Lin Henao Department: Room: [facility] Gender: Female Talent Analyst: : 1955 Requested By: Char Diane Order Number: [id number] Tylor MD: Herber Benoit M.D. Measurements Intervals [place] Rate: 139 P: 0 NE: 0 QRS: 0 QRSD: 72 T: -12 QT: 262 QTc: 399 Interpretive Statements ATRIAL FIBRILLATION WITH RAPID VENTRICULAR RESPONSE LOW QRS VOLTAGE IN PRECORDIAL LEADS [QRS DEFLECTION < 1.0 mV IN CHEST LEADS] POSSIBLE ANTERIOR MYOCARDIAL INFARCTION , OF INDETERMINATE AGE [30 ms Q WAVE IN V3/V4, OR R < 0.2 mV IN V4] MODERATE T-WAVE ABNORMALITY, CONSIDER LATERAL ISCHEMIA [-0.1+ mV T-WAVE IN I/aVL/V5/V6] Compared to ECG 10/28/2023 17:00:51 No significant changes Electronically Signed On 10-29-2023 19:06:59 CDT by Herber Benoit M.D. [email or web address] Global Holdingspatient's choice medical center of smith countySIL4 Systemsholzer medical center – [email or web address]/store/[id number]
--- NOTE | 2023-10-29 02:13 | XRR_ITS ---
PROCEDURE INFORMATION: Exam: XR Chest Exam date and time: 10/29/2023 2:24 AM Age: 68 years old Clinical indication: Shortness of breath; Patient HX: C/O SOB TECHNIQUE: Imaging protocol: Radiologic exam of the chest. Views: 1 view. COMPARISON: CR XR chest 1V portable [id number] 10/28/2023 3:27 PM FINDINGS: Lungs: Moderate interstitial coarsening, similar compared to prior study, likely chronic. Pleural spaces: No pleural effusion or pneumothorax. Heart/Mediastinum: Heart size is within normal limits. Bones/joints: Abnormality of the left humeral head likely related to overlying artifact. No acute osseous abnormalities are seen. XR/XR chest 1V portable [id number] IMPRESSION: Moderate interstitial coarsening which appears slightly worsened when compared to prior study may be related to differences in technique. Pulmonary edema could also account for short interval change of interstitial appearance.
[2023-10-29] MEDS: metoprolol tartrate 1 mg/1 mL SDV 5 mL 2.5 MG IVP (02:21)
[2023-10-29 02:38] LABS: ABG PCO2 47.3 mmHg (35-45); ABG PH Result 7.35 (7.35-7.45); Alveolar-Arterial Oxygen Gradi 3.3 mmHg (5-10); Arterial Blood Gas Hematocrit 26.7 % (37-47); Base Excess ABG 0.5 mmol/L (-2.0-2.0); Blood Gas Allen Test Pos; Blood Gas Operator Identificat JB; Blood Gas Sample Site Brachial, right; Blood Gas Sample Type Arterial; Carboxyhemoglobin 1.6 %THgb (0.4-20.1); HCO3 ABG 26.3 mmol/L (22-26); HGB O2 Sat 89.8 % (95-100); Ionized Calcium Level - ABG 1.2 mmol/L (1.1-1.4); Methemoglobin 0.5 % (0.4-1.5); Oxygen Device NC; Oxygen Saturation ABG 91.8; PO2 ABG 65.6 mmHg (80.0-100.0); Potassium Level - ABG 3.9 mmol/L (3.5-5.0); Total Hemoglobin 8.7 g/dL (12-16)
--- NOTE | 2023-10-29 02:58 | PC.NURSE ---
This nurse came into the room to start an IV when the patient started getting short of breath and having respiratory distress. Heart rate went up to 120 and patient's heart rhythm went into A-fib with RVR. EKG was obtained and Dr. Diane was called. She ordered to get an chest X-ray, ABG, and give 2.5 mg of Metoprolol IVP.
[2023-10-29 03:58] LABS: Basophils % 0.3 %; Eosinophils # 0.1 10^3/uL (0.0-0.8); Eosinophils % 1.6 %; Hematocrit 29.7 % (36-47); Lymphocytes # 1.5 10^3/uL (0.8-4.8); Lymphocytes % 19.5 %; Mean Corpuscular HGB Conc 27.6 g/dL (30-55); Mean Corpuscular Hemoglobin 22.8 pg (27-33); Mean Corpuscular Volume 82.5 fl (85-98); Mean Platelet Volume 12.5 fL (7.4-10.4); Monocytes # 0.6 10^3/uL (0.2-0.9); Monocytes % 8.2 %; Neutrophils # 5.24 10^3/uL (1.8-7.7); Nucleated Red Blood Cells % 0 %; Platelet Count 145 10^3/cmm (157-399); Red Cell Distribution Width 16.4 % (12.1-15.1); White Blood Count 7.48 10^3/uL (3.29-11.43)
[2023-10-29 04:23] LABS: Blood Urea Nitrogen 9 mg/dL (8-23); Calcium 8.7 mg/dL (8.5-10.5); Carbon Dioxide 25 mmol/L (22-29); Chloride 103 mmol/L (98-107); Creatinine Clr Calc Pharmacy 101.0056; Glomerular Filtration Rate 123.4 mL/min (90-130); Glucose 245 mg/dL (65-115); Magnesium 1.9 mg/dL (1.7-2.3); Osmolality Calculated 293 mOsm/kg (285-295); Sodium 138 mmol/L (136-145)
[2023-10-29 04:33] LABS: Anion Gap 14.5 (5-19); Potassium 4.5 mmol/L (3.5-5.1)
[2023-10-29] MEDS: metoprolol tartrate 50 mg Tablet 100 MG PO ×2 (06:05→18:14)
[2023-10-29] MEDS: pantoprazole 40 mg SDV IVP ×2 (06:05→17:40)
[2023-10-29 07:18] LABS: Glucose Point of Care 270 mg/dL (70-110)
--- NOTE | 2023-10-29 07:54 | P.CONIM_ITS ---
Providers/Reason For Consult 2 Consulting Physician/Specialty*: General surgery Reason for Consult*: Ablation for EGD Attending Physician: Rehana Szymanski MD Primary Care Provider: Kristine Rodriguez MD History of Present Illness History of Present Illness Lin Henao is a 68 year old female with multiple medical comorbidities who was admitted with heart failure and also noted to have worsening iron deficiency anemia. Patient has reported dark stools and therefore I was consulted for evaluation for possible EGD. In addition patient has noted some bleeding from her hemorrhoids but other than that has no other symptoms of GI bleeding. Currently no abdominal pain, appears hemodynamically stable. Review of Systems 2 General: Reports: 10 or more systems reviewed and unremarkable except in HPI and below Medications/Allergies Home Medications Medication Instructions Recorded Confirmed Last Taken Type ascorbic acid (vitamin C) 1,000 mg 1,000 mg PO DAILY ##0 10/09/20 10/29/23 01/04/23 History tablet (Vitamin C) multivitamin 1 tab PO DAILY ##0 10/09/20 10/29/23 10/28/23 08:00 History melatonin 5 mg capsule 10 mg PO BEDTIME PRN insomnia 10/27/20 10/29/23 12/15/21 History miscellaneous medical supply #1 ea 04/06/21 10/29/23 Unknown Rx polyethylene glycol 3350 17 17 g PO DAILY PRN constipation 30 03/22/22 10/29/23 10/27/23 21:00 Rx gram/dose oral powder (Miralax) days #510 grams nitroglycerin 0.4 mg sublingual 0.4 mg sublingual Q5M PRN Chest 04/15/22 10/29/23 Unknown Rx tablet Pain #25 tabs blood sugar diagnostic (OneTouch #50 strips 01/28/23 10/29/23 Unknown Rx Ultra Test strips) diaper,brief,adult,disposable #360 ea 01/31/23 10/29/23 Unknown Rx (Depend Underwear For Women XL) blood-glucose meter (Blood Glucose #1 ea 02/08/23 10/29/23 Unknown Rx Monitoring kit) blood-glucose meter,continuous #1 ea 02/08/23 10/29/23 Unknown Rx (Dexcom G7 Senior Brand Manager) miscellaneous medical supply See Rx Instructions miscellaneous 10/23/23 06/29/24 06/27/24 Rx .COMPLEX #1 ea pen needle, diabetic 31 gauge x #100 ea 04/18/23 10/29/23 Unknown Rx 5/16 (TechLITE Pen Needle) docusate sodium 100 mg capsule See Rx Instructions .Route 04/23/23 10/29/23 10/28/23 08:00 Rx .COMPLEX #360 caps suvorexant 20 mg tablet (Belsomra) 20 mg PO .qhs PRN insomnia 30 days 05/31/23 10/29/23 Unknown Rx #30 tabs insulin lispro 100 unit/mL See Rx Instructions .Route 06/15/23 10/29/23 10/28/23 Rx subcutaneous pen (Humalog KwikPen .COMPLEX #15 mL (U-100) Insulin) bupropion HCl 300 mg 24 hr tablet, 300 mg PO DAILY #30 tabs 07/05/23 10/29/23 10/28/23 08:00 Rx extended release buspirone 15 mg tablet See Rx Instructions .Route 07/05/23 10/29/23 10/28/23 08:00 Rx .COMPLEX #90 tabs duloxetine 60 mg capsule,delayed 120 mg (2 x 60 mg) PO DAILY #60 07/05/23 10/29/23 10/28/23 08:00 Rx release caps albuterol sulfate 90 mcg/actuation 2 puff inhalation Q6H PRN 07/18/23 10/29/23 10/28/23 08:00 Rx aerosol inhaler (ProAir HFA) shortness of breath or wheezing #8.5 grams apixaban 5 mg tablet (Eliquis) 5 mg PO BID 30 days #60 tabs 07/18/23 10/29/23 10/28/23 08:00 Rx clopidogrel 75 mg tablet 75 mg PO DAILY 90 days #90 tabs 07/18/23 10/29/23 10/28/23 08:00 Rx famotidine 20 mg tablet 20 mg PO BID 90 days #180 tabs 07/18/23 10/29/23 10/28/23 08:00 Rx furosemide 40 mg tablet 40 mg PO BID 90 days #180 tabs 07/18/23 10/29/23 10/28/23 08:00 Rx metformin 1,000 mg tablet 1,000 mg PO BID 90 days #180 tabs 07/18/23 10/29/23 Unknown Rx methocarbamol 750 mg tablet 750 mg PO BID PRN muscle spasm 30 07/18/23 10/29/23 10/27/23 21:00 Rx days #60 tabs metoprolol tartrate 100 mg tablet 100 mg PO Q12H 90 days #180 tabs 07/18/23 10/29/23 10/28/23 Rx oxybutynin chloride 15 mg 15 mg PO DAILY 90 days #90 tabs 07/18/23 10/29/23 10/28/23 08:00 Rx tablet,extended release 24 hr potassium chloride 20 mEq 20 meq PO BID 90 days #180 tabs 07/18/23 10/29/23 10/28/23 08:00 Rx tablet,extended release(part/cryst) pramipexole 0.5 mg tablet See Rx Instructions .Route 07/18/23 10/29/23 Unknown Rx .COMPLEX #90 tabs atorvastatin 40 mg tablet 40 mg PO DAILY #90 tabs 08/10/23 10/29/23 10/28/23 08:00 Rx cholecalciferol (vitamin D3) 1,250 See Rx Instructions .Route 08/16/23 10/29/23 10/24/23 08:00 Rx mcg (50,000 unit) capsule .COMPLEX #4 caps blood-glucose sensor (Dexcom G7 #3 ea 08/19/23 10/29/23 Unknown Rx Sensor device) cyclobenzaprine 5 mg tablet 10 mg (2 x 5 mg) PO QPM 90 days 08/29/23 10/29/23 10/28/23 08:00 Rx #180 tabs miscellaneous medical supply See Rx Instructions miscellaneous 09/08/23 10/29/23 10/27/23 Rx .COMPLEX #1 ea insulin glargine 100 unit/mL (3 68 unit (0.68 mL) SUBCUT DAILY 90 09/13/23 10/29/23 10/28/23 08:00 Rx mL) subcutaneous pen (Lant days #65 mL Solostar U-100 Insulin) loratadine 10 mg tablet (Allergy See Rx Instructions .Route 09/20/23 10/29/23 10/28/23 Rx Relief (loratadine)) .COMPLEX #90 tabs aspirin 81 mg tablet,delayed See Rx Instructions .Route 09/28/23 10/29/23 10/28/23 08:00 Rx release .COMPLEX #90 tabs diltiazem HCl 120 mg 120 mg PO BID #180 caps 10/04/23 10/29/23 10/28/23 08:00 Rx capsule,extended release 12 hr azelastine 0.05 % eye drops 1 drp ophthalmic (eye) BID 1 week 10/13/23 10/29/23 10/27/23 Rx #6 mL risperidone 0.5 mg tablet 0.5 mg PO .qhs #30 tabs 10/13/23 10/29/23 Unknown Rx diclofenac sodium 50 mg 50 mg PO BID PRN pain 30 days #60 10/17/23 10/29/23 10/27/23 21:00 Rx tablet,delayed release tabs hydrocodone 5 mg-acetaminophen 325 1 tab PO DAILY pain, severe 30 10/17/23 10/29/23 Unknown Rx mg tablet days #30 tabs miscellaneous medical supply See Rx Instructions miscellaneous 10/17/23 10/29/23 10/27/23 Rx .COMPLEX #1 ea pregabalin 75 mg capsule 75 mg PO BID 30 days #60 caps 10/17/23 10/29/23 10/28/23 08:00 Rx Allergies Allergy/AdvReac Type Severity Reaction Status Date / Time propoxyphene [From Darvon] Allergy Unknown Unknown Verified 10/13/23 07:48 fluoxetine [From Prozac] AdvReac Severe ADR-Halluci Verified 10/13/23 07:48 nating Current Medications Generic Name Dose Route Start Last Admin Trade Name Freq PRN Reason Stop Dose Admin Metoprolol Tartrate 100 mg 10/28/23 19:00 10/29/23 06:05 Metoprolol Tartrate 50 Mg Tablet PO 100 mg Q12H LEORA Administration Pantoprazole Sodium 40 mg 10/28/23 18:45 10/29/23 06:05 Pantoprazole 40 Mg Sdv IVP 40 mg Q12H LEORA Administration Risperidone 0.5 mg 10/28/23 21:00 10/28/23 20:57 Risperidone 0.25 Mg Tablet PO 0.5 mg BEDTIME LEORA Administration PFSH Acute 2 PFSH: Medical History Insomnia Wheelchair bound Oxygen dependent 2 L at home Small bowel obstruction History of colonic diverticulitis Congestive heart failure Paroxysmal SVT (supraventricular tachycardia) Nicotine dependence, cigarettes, with other nicotine-induced disorders DM type 2 (diabetes mellitus, type 2) Chest pain Atypical chest pain Paroxysmal A-fib Chronic anticoagulation initiated apixaban 08/2020 for paroxysmal atrial fibrillation Paroxysmal atrial fibrillation (~08/2020) NONA (obstructive sleep apnea) Uses CPAP Fibromyalgia Peripheral Vascular Disease Mixed stress and urge urinary incontinence Chronic pain syndrome Due to her weight and other comorbidities I do not think that there is much that pain management would be able to do. They can do localized injections or treatments on specific joints but she would never be a surgical candidate. Bipolar depression Hypertension, benign Overactive bladder RLS (restless legs syndrome) Constipation, chronic COPD (chronic obstructive pulmonary disease) GERD (gastroesophageal reflux disease) CAD (coronary artery disease) Diabetes mellitus type 2 in obese Hyperlipemia Chronic headache Panic disorder [episodic paroxysmal anxiety] Generalized anxiety disorder Major depressive disorder, recurrent, moderate Surgical History H/O: hysterectomy Hx of cholecystectomy S/P appendectomy H/O thyroidectomy Family History Mother , at age 75 Hypertension Father , at age 87 Hypertension Denies family history of Lung disease Stroke Social History Smoking and tobacco/nicotine status: current every day tobacco/nicotine user cigarettes Packs smoked per day: 1 Years cigarettes smoked: 44 Alcohol intake: never Substance/Drug Use: never Adopted: No Caregiver/support person: No Lives independently: Yes Household members: none Housing: Apartment Marital status: / Number of children: 8 Number of grandchildren: 14 Highest education level completed: Some College, No Degree service: No Current occupational status: disabled Pets and animals: Yes Pets & animals: dog(s) Leisure activites: art, music, reading and other Sexually active: No Do you think of yourself as: Straight/Heterosexual Current gender identity: Female Lilliam/Gnosticism: Hindu Special lilliam needs: No Agree to transfusion: Yes Female Reproductive History: Para: 8 Spontaneous abortions: No Vitals/I&O/Wt Last Vital Signs Temp 97.7 F 10/29/23 02:30 Pulse 105 H 10/29/23 06:00 Resp 16 10/29/23 06:00 BP 127/81 10/29/23 06:00 Pulse Ox 95 10/29/23 06:00 O2 Del Method Nasal Cannula 10/29/23 06:00 O2 Flow Rate 4 10/29/23 04:00 10/28/23 10/29/23 10/29/23 22:59 06:59 14:59 Intake Total 161.661 / 161.661 Output Total 250 / 250 Balance 161.661 / 161.661 -250 / -88.339 Weight last 48 hrs Weight 323 lb 4 oz Weight 328 lb 14.4 oz Weight 260 lb Physical Exam 2 GI: OTHER: Abdomen is soft, nontender nondistended to palpation. Rectal examination was deferred, I offered the patient to do a rectal examination while she is under anesthesia for the EGD Data 10/29/23 03:24 10/29/23 03:24 Micro: Microbiology 10/28/23 22:05 Occult Blood (FIT) - Final Stool - Stool Aspirate A&P Assessment and plan (1) GERD (gastroesophageal reflux disease): Qualifiers: Esophagitis presence: without esophagitis Qualified Code(s): K21.9 - Gastro-esophageal reflux disease without esophagitis (2) Chronic anticoagulation: Plan After complete history, physical examination and review of all available clinical data the following is my assessment. Patient appears to probably have a upper GI bleeding in the setting of chronic anticoagulation use. I agree with proceeding with upper endoscopy since patient was in 3 different blood thinners I think it would be appropriate at least to wait until tomorrow morning to allow the Eliquis to wear off before proceeding. In the interim patient can continue resuscitation as needed IV PPI and blood transfusion if required. Plan is to proceed with upper endoscopy tomorrow morning. I have discussed all the risk and benefits with the patient including the risk of perforation of the esophagus stomach or duodenum requiring surgical intervention transfer to higher level of care, patient agrees. In the case of no evidence of an actual source of bleeding I will still recommend that the patient holds the Eliquis for least amount to prevent further episodes of bleeding. -For EGD tomorrow Consult Attestations 2 Medical Necessity Statement: Per medical team Coding Level of Care Code Acute Code for Chg Fwd Diagnoses Gastroesophageal reflux disease without esophagitis K21.9 Esophagitis presence: without esophagitis Chronic anticoagulation Z79.01
[2023-10-29] MEDS: perflutren protein-a microsphr 0.22 mg/mL SDV 3 mL IV (08:04)
[2023-10-29] MEDS: FUROsemide 40 mg Tablet PO (08:25)
[2023-10-29] MEDS: dilTIAZem ER (24HR) 120 mg Capsule PO (08:25)
[2023-10-29] MEDS: buPROPion XL (24 HR) 150 mg Tablet 300 MG PO (08:25)
[2023-10-29] MEDS: insulin lispro 100 unit/1 mL SUBCUT ×3 (08:25→17:40)
[2023-10-29] MEDS: atorvastatin 40 mg Tablet PO (08:25)
[2023-10-29] MEDS: potassium chloride ER 20 mEq Tablet PO (08:25)
[2023-10-29] MEDS: HYDROcodone-acetaminophen 5-325 mg Tablet 1 TAB PO (08:25)
[2023-10-29] MEDS: insulin glargine 100 units/1 mL 50 UNIT SUBCUT (08:57)
--- NOTE | 2023-10-29 10:39 | P.PN_ITS ---
Subjective 2 Subjective: Applicable 1 unit PRBC hemoglobin 8.2, patient has been getting A-fib RVR on minimal exertion I will change her Cardizem dose to 90 mg every 6 hours Continue metoprolol Discontinue aspirin Plavix and Eliquis N.p.o. after midnight Plan for EGD tomorrow Convert to inpatient Patient has iron-deficiency as well, ferritin 15 low normal Vitals/I&O/Wt Last Vital Signs Temp 98.8 F 10/29/23 09:30 Pulse 91 10/29/23 09:30 Resp 18 10/29/23 07:55 BP 128/74 10/29/23 09:30 Pulse Ox 96 10/29/23 09:30 O2 Del Method Nasal Cannula 10/29/23 09:00 O2 Flow Rate 3 10/29/23 09:30 10/28/23 10/29/23 10/29/23 22:59 06:59 14:59 Intake Total 161.661 / 161.661 380 / 380 Output Total 250 / 250 700 / 700 Balance 161.661 / 161.661 -250 / -88.339 -320 / -320 Weight last 48 hrs Weight 146.624 kg Weight 149.187 kg Weight 117.934 kg Physical Exam 2 Narrative: Awake and alert Euvolemic GCS 15 Nonfocal neuroexam Venous's dermatitis, currently on 4 L Nonfocal neuroexam No stigmata signs of fluid overload S1, S2 Data 10/29/23 03:24 10/29/23 03:24 Micro: Microbiology 10/28/23 22:05 Occult Blood (FIT) - Final Stool - Stool Aspirate A&P Assessment and plan (1) Congestive heart failure: Qualifiers: Heart failure type: unspecified Heart failure chronicity: chronic Qualified Code(s): I50.9 - Heart failure, unspecified (2) Paroxysmal SVT (supraventricular tachycardia): (3) Atrial flutter: (4) Paroxysmal A-fib: (5) Chronic anticoagulation: (6) Diabetes mellitus type 2 in obese: (7) GERD (gastroesophageal reflux disease): Qualifiers: Esophagitis presence: without esophagitis Qualified Code(s): K21.9 - Gastro-esophageal reflux disease without esophagitis (8) Constipation, chronic: (9) Acute anemia: (10) RLS (restless legs syndrome): (11) NONA (obstructive sleep apnea): (12) Smoking addiction: (13) Tachy-andra syndrome: Plan A-fib without RVR Patient gets tachycardic with minimal exertion, yesterday her heart rate was in 60s on amiodarone was discontinued yesterday Today we have increased the dose of Cardizem continue metoprolol Anticoagulation antiplatelets on hold Sick sinus syndrome tachybradycardia syndrome? Diastolic CHF: No acute exacerbation Acute GI blood loss anemia Will give 1 unit PRBC Iron transfusion Will start her on p.o. iron supplement Patient should not take aspirin Plavix and Eliquis which I think is the culprit to cause bleeding at this point She lives in apartment with her dog Takes multiple medications she at least has more than 20 medications on her JUN Full code Clear liquid diet Protonix and sucralfate on board N.p.o. after midnight Appreciate general surgery recommendation for EGD tomorrow Attestations 2 Medical Necessity Statement*: Continue medical management Diagnoses Chronic congestive heart failure, unspecified heart failure type I50.9 Heart failure type: unspecified Heart failure chronicity: chronic Paroxysmal SVT (supraventricular tachycardia) I47.1 Atrial flutter I48.92 Paroxysmal A-fib I48.0 Chronic anticoagulation Z79.01 Diabetes mellitus type 2 in obese E11.69; E66.9 Gastroesophageal reflux disease without esophagitis K21.9 Esophagitis presence: without esophagitis Constipation, chronic K59.09 Acute anemia D64.9 RLS (restless legs syndrome) G25.81 NONA (obstructive sleep apnea) G47.33 Smoking addiction F17.200 Tachy-andra syndrome I49.5
--- NOTE | 2023-10-29 11:02 | PC.NURSE ---
Patient refuses blood and blood products. Dr. Szymanski notified, Lab staff notified.
[2023-10-29] MEDS: dilTIAZem 60 mg Tablet 90 MG PO ×3 (11:32→22:43)
[2023-10-29] MEDS: iron complex forte Capsule 1 EACH PO (11:32)
[2023-10-29 11:36] LABS: Glucose Point of Care 228 mg/dL (70-110)
[2023-10-29 16:57] LABS: Glucose Point of Care 204 mg/dL (70-110)
--- NOTE | 2023-10-29 18:43 | USCV_ITS ---
Lin Henao Age: 68 Gender: F : 1955 Exam Date: 10/29/2023 07:11 Ordering Phys: Rehana Szymanski MD Technologist: Exam [place] [facility] [place]: afib BP: 156 / 83 HR: 121 Rhythm: Sinus Technical Quality: Adequate MEASUREMENTS (Male / Female) Normal Values 2D ECHO LV Diastolic Diameter PLAX 4.2 cm 4.2 - 5.9 / 3.9 - 5.3 cm IVS Diastolic Thickness 1.3 cm 0.6 - 1.0 / 0.6 - 0.9 cm IVS Systolic Thickness 1.6 cm LVPW Diastolic Thickness 1.4 cm 0.6 - 1.0 / 0.6 - 0.9 cm LVPW Systolic Thickness 1.7 cm LV Ejection Fraction 2D Teich 58.7 % LA Diameter 2.5 cm M-MODE LA Ao Ratio MM 1.5 AV Cusp Separation MM 1.8 cm DOPPLER AV Peak Velocity 115.0 cm/s LVOT Peak Velocity 84.0 cm/s MV Area PHT 5.2 cm squared Mitral E to A Ratio 1.9 TR Peak Velocity 311.0 cm/s TR Peak Gradient 38.7 mmHg TV Peak E Velocity 125.0 cm/s Right Atrial Pressure 3.0 mmHg Pulmonary Artery Systolic Pressu 41.7 mmHg FINDINGS Left Ventricle Technically extremely difficult study. (Echo contrast - Optison was used to delineate the endocardium and to estimate the LV ejection fraction). Even with echo contrast, it was difficult to delineate the endocardium. The LV ejection fraction appears to be normal, calculated to be 58%. Possibly normal LV size. Other details could not be obtained. Right Ventricle Right ventricle not well visualized. Right Atrium Right atrium not well visualized. Left Atrium Mitral Valve Could not be visualized Aortic Valve Could not be visualized Tricuspid Valve Could not be visualized Pulmonic Valve Could not be visualized Pericardium No pericardial effusion. Aorta Aorta not well visualized. IVC Inferior vena cava not visualized. CONCLUSIONS Technically extremely difficult study due to very poor ultrasonic window. (Echo contrast - Optison was used to delineate the endocardium and to estimate the LV ejection fraction). Even with echo contrast, it was difficult to delineate the endocardium The LV ejection fraction appears to be normal, calculated to be 58%. Possibly normal LV size. No pericardial effusion. Other details could not be obtained. Dr Herber Benoit MD FAC (Electronically Signed) Final Date: 29 October 2023 11:27 S
[2023-10-29] MEDS: ALPRAZolam 0.5 mg Tablet PO (20:08)
[2023-10-29] MEDS: FUROsemide 10 mg/mL SDV 4mL 40 MG IVP (20:08)
[2023-10-29] MEDS: risperiDONE 0.25 mg Tablet 0.5 MG PO (20:08)
--- NOTE | 2023-10-29 20:21 | XRR_ITS ---
PROCEDURE INFORMATION: Exam: XR Chest Exam date and time: 10/29/2023 8:48 PM Age: 68 years old Clinical indication: Dyspnea; Additional info: Shortness of breath TECHNIQUE: Imaging protocol: Radiologic exam of the chest. Views: 1 view. COMPARISON: CR (CHEST, ) 10/29/2023 2:24 AM FINDINGS: Lungs: Low lung volumes. Diffuse vascular congestion. No consolidation. Pleural spaces: Trace right effusion likely present. No pneumothorax. Heart/Mediastinum: Mildly enlarged cardiac silhouette. No mediastinal widening. Bones/joints: Unremarkable. XR/XR chest 1V portable [id number] IMPRESSION: Findings most consistent with [id number] CHF. Coarsened lung markings without focal consolidation at this time.
[2023-10-29] MEDS: ipratropium-albuterol 3 mL Neb INHALATION (20:30)
[2023-10-29 20:39] LABS: ABG PCO2 50.9 mmHg (35-45); ABG PH Result 7.32 (7.35-7.45); Alveolar-Arterial Oxygen Gradi 4.4 mmHg (5-10); Arterial Blood Gas Hematocrit 29.2 % (37-47); Blood Gas Allen Test Pos; Blood Gas Sample Site Brachial, left; Blood Gas Sample Type Arterial; Carboxyhemoglobin 1.4 %THgb (0.4-20.1); HCO3 ABG 26.4 mmol/L (22-26); HGB O2 Sat 83.4 % (95-100); Ionized Calcium Level - ABG 1.2 mmol/L (1.1-1.4); Methemoglobin 0.4 % (0.4-1.5); Oxygen Device NRB; Oxygen Saturation ABG 84.9; Total Hemoglobin 9.5 g/dL (12-16)
[2023-10-29 21:48] LABS: Glucose Point of Care 228 mg/dL (70-110)
--- NOTE | 2023-10-29 22:39 | PC.NURSE ---
Patient started to become very anxious and agitated stating that they could not breath.Oxygen saturation fell to 81% on 6 L Nasal Cannula. Patient started to to get out of bed but was easily redirected. Patient stated that the wore a cpap at home. Dr. Oconnor was contacted and He ordered 0.5mg of Xanax PO and 40 mg of lasix IVP to be given. He ordered for an ABG and a Stat chest X-ray to be taken. The lasix and Xanax were given and patient was put on a Cpap. Patient became more relaxed and was able to rest. Oxygen saturation came back up to 98% on Cpap.
[2023-10-30] VITALS (35 sets, daily range): BP systolic 108–148; BP diastolic 62–94; PULSE 91–92; RESP 13–32; TEMP 36.7–36.8; O2SAT 90–100; BMI 54.5
[2023-10-30 04:07] LABS: Basophils % 0.2 %; Eosinophils # 0.1 10^3/uL (0.0-0.8); Eosinophils % 0.6 %; Hematocrit 27.9 % (36-47); Lymphocytes # 1.8 10^3/uL (0.8-4.8); Lymphocytes % 18.7 %; Mean Corpuscular Volume 82.3 fl (85-98); Mean Platelet Volume 13.2 fL (7.4-10.4); Monocytes # 0.7 10^3/uL (0.2-0.9); Monocytes % 7.2 %; Neutrophils # 7.08 10^3/uL (1.8-7.7); Nucleated Red Blood Cells % 0 %; Platelet Count 183 10^3/cmm (157-399); Red Blood Count 3.39 10^6/uL (3.85-5.65); Red Cell Distribution Width 16.7 % (12.1-15.1); White Blood Count 9.71 10^3/uL (3.29-11.43)
[2023-10-30 04:31] LABS: Anion Gap 10.5 (5-19); Blood Urea Nitrogen 8 mg/dL (8-23); Calcium 8.5 mg/dL (8.5-10.5); Carbon Dioxide 29 mmol/L (22-29); Chloride 104 mmol/L (98-107); Creatinine Clr Calc Pharmacy 99.8861; Glucose 218 mg/dL (65-115); Osmolality Calculated 293 mOsm/kg (285-295); Potassium 4.5 mmol/L (3.5-5.1); Sodium 139 mmol/L (136-145)
--- NOTE | 2023-10-30 05:58 | P.HP_ITS ---
Same Day Surgery H&P Indication for Procedure/HPI DATE OF PROCEDURE: October 30, 2023 CHIEF COMPLAINT/INDICATIONFOR SURGICAL PROCEDURE: GI Bleeding PREOP DIAGNOSIS: GI BLeeding PLANNED PROCEDURE: Operation Date: 10/30/23 07:00 Proposed Procedures p EGD(Not Applicable) - Jamey Mota MD Medications/Allergies* Home Medications Medication Instructions Recorded Confirmed Type ascorbic acid (vitamin C) 1,000 mg 1,000 mg PO DAILY ##0 10/09/20 10/29/23 History tablet (Vitamin C) multivitamin 1 tab PO DAILY ##0 10/09/20 10/29/23 History melatonin 5 mg capsule 10 mg PO BEDTIME PRN insomnia 10/27/20 10/29/23 History Allergies/Adverse Reactions Allergy/AdvReac Type Severity Reaction Status Date / Time propoxyphene [From Darvon] Allergy Unknown Unknown Verified 10/13/23 07:48 fluoxetine [From Prozac] AdvReac Severe ADR-Halluci Verified 10/13/23 07:48 nating Current Medications: Generic Name Dose Route Start Last Admin Trade Name Freq PRN Reason Stop Dose Admin Hydrocodone Bitart/Acetaminophen 1 tab 10/29/23 09:00 10/29/23 08:25 Hydrocodone-Acetaminophen 5-325 Mg Tablet PO 1 tab DAILY LEORA Administration Albuterol/Ipratropium 3 ml 10/28/23 18:43 10/29/23 20:30 Ipratropium-Albuterol 3 Ml Neb INHALATION 3 ml Q6H PRN Administration SHORTNESS OF BREATH Atorvastatin Calcium 40 mg 10/29/23 09:00 10/29/23 08:25 Atorvastatin 40 Mg Tablet PO 40 mg DAILY LEORA Administration Bupropion HCl 300 mg 10/29/23 09:00 10/29/23 08:25 Bupropion Xl (24 Hr) 150 Mg Tablet PO 300 mg DAILY LEORA Administration Diltiazem HCl 90 mg 10/29/23 11:00 10/29/23 22:43 Diltiazem 60 Mg Tablet PO 90 mg Q6H LEORA Administration Folic Acid/Iron/Vitamin B12 1 each 10/29/23 11:00 10/29/23 11:32 Iron Complex Forte Capsule PO 1 each DAILY LEORA Administration Furosemide 40 mg 10/29/23 08:00 10/29/23 08:25 Furosemide 40 Mg Tablet PO 40 mg DAILY@0800 LEORA Administration Insulin Glargine 50 unit 10/29/23 09:00 10/29/23 08:57 Insulin Glargine 100 Units/1 Ml SUBCUT 50 unit DAILY LEORA Administration Insulin Human Lispro 0 unit 10/29/23 08:00 10/29/23 17:40 Insulin Lispro 100 Unit/1 Ml SUBCUT 6 unit TIDWM LEORA Administration Protocol Metoprolol Tartrate 100 mg 10/28/23 19:00 10/29/23 18:14 Metoprolol Tartrate 50 Mg Tablet PO 100 mg Q12H LEORA Administration Pantoprazole Sodium 40 mg 10/28/23 18:45 10/29/23 17:40 Pantoprazole 40 Mg Sdv IVP 40 mg Q12H LEORA Administration Potassium Chloride 20 meq 10/29/23 09:00 10/29/23 08:25 Potassium Chloride Er 20 Meq Tablet PO 20 meq DAILY LEORA Administration Risperidone 0.5 mg 10/28/23 21:00 10/29/23 20:08 Risperidone 0.25 Mg Tablet PO 0.5 mg BEDTIME LEORA Administration Pertinent History/Comorbid Conditions* Medical History (Updated 10/29/23 @ 06:02 by Kirby Julien DO) Insomnia Wheelchair bound Oxygen dependent 2 L at home Small bowel obstruction History of colonic diverticulitis Congestive heart failure Paroxysmal SVT (supraventricular tachycardia) Nicotine dependence, cigarettes, with other nicotine-induced disorders DM type 2 (diabetes mellitus, type 2) Chest pain Atypical chest pain Paroxysmal A-fib Chronic anticoagulation initiated apixaban 08/2020 for paroxysmal atrial fibrillation Paroxysmal atrial fibrillation (~08/2020) NONA (obstructive sleep apnea) Uses CPAP Fibromyalgia Peripheral Vascular Disease Mixed stress and urge urinary incontinence Chronic pain syndrome Due to her weight and other comorbidities I do not think that there is much that pain management would be able to do. They can do localized injections or treatments on specific joints but she would never be a surgical candidate. Bipolar depression Hypertension, benign Overactive bladder RLS (restless legs syndrome) Constipation, chronic COPD (chronic obstructive pulmonary disease) GERD (gastroesophageal reflux disease) CAD (coronary artery disease) Diabetes mellitus type 2 in obese Hyperlipemia Chronic headache Panic disorder [episodic paroxysmal anxiety] Generalized anxiety disorder Major depressive disorder, recurrent, moderate Surgical History (Updated 02/05/20 @ 12:28 by Kristine Rodriguez MD) H/O: hysterectomy Hx of cholecystectomy S/P appendectomy H/O thyroidectomy Family History (Updated 05/23/19 @ 13:10 by Yessy Ramírez RN) Father, at age 87 Mother, at age 75 Hypertension Mother Father Denies family history of Lung disease Stroke Social History Smoking and tobacco/nicotine status: current every day tobacco/nicotine user cigarettes Packs smoked per day: 1 Years cigarettes smoked: 44 Alcohol intake: never Substance/Drug Use: never Adopted: No Caregiver/support person: No Lives independently: Yes Household members: none Housing: Apartment Marital status: / Number of children: 8 Number of grandchildren: 14 Highest education level completed: Some College, No Degree service: No Current occupational status: disabled Pets and animals: Yes Pets & animals: dog(s) Leisure activites: art, music, reading and other Sexually active: No Do you think of yourself as: Straight/Heterosexual Current gender identity: Female Lilliam/Roman Catholic: Episcopalian Special lilliam needs: No Agree to transfusion: Yes Pertinent Exam Findings alert, oriented x 3, clear to auscultation bilaterally and regular rate & rhythm Recommendations Surgery/Procedure today Coding Level of Care Code Acute Code for Chg Fwheaven
[2023-10-30] MEDS: metoprolol tartrate 50 mg Tablet 100 MG PO (06:09)
[2023-10-30] MEDS: pantoprazole 40 mg SDV IVP ×2 (06:10→18:05)
[2023-10-30] MEDS: dilTIAZem 60 mg Tablet 90 MG PO ×4 (06:10→23:04)
[2023-10-30] MEDS: sodium chloride 0.9% 1,000 ML 30 ML IV (06:46)
--- NOTE | 2023-10-30 06:57 | ANES.PREANE2 ---
Pre-Anesthetic Assessment Height/Weight: Height 1.63 m Weight 144 kg Temp Pulse Resp BP Pulse Ox O2 Del Method O2 Flow Rate 98.2 F 92 22 H 134/88 92 Nasal Cannula 4 10/30/23 04:00 10/30/23 06:47 10/30/23 06:47 10/30/23 06:47 10/30/23 06:47 10/30/23 06:47 10/30/23 06:47 FiO2 55 10/29/23 23:38 Preop Diagnosis: GI BLeeding Operation Date: 10/30/23 07:00 Proposed Procedures p EGD(Not Applicable) - Jamey Mota MD Familial anesthetic complications: None Was Beta Jessica taken within 24 hours: Yes Was Clonidine taken within 24 hours: N/A Last intake: > 8 hrs Social Tobacco and No alcohol Exam alert, oriented x 3, clear to auscultation bilaterally and regular rate & rhythm Airway Mallampati: Class IV Pulmonary Chronic Obstructive Pulmonary Disease and Sleep Apnea CV/HEM Atrial Fibrillation, Arrythmia, Coronary Artery Disease and Hypertension Metabolic Diabetes Mellitus, Hyperlipidemia, Morbid Obesity and Thyroid Disease Anesthetic Plan ASA status: 4 Anesthesia: MAC Risk of > 500 ml blood loss (7ml/kg in children): No Medications/Allergies Home Medications Medication Instructions Recorded Confirmed Last Taken Type ascorbic acid (vitamin C) 1,000 mg 1,000 mg PO DAILY ##0 10/09/20 10/29/23 01/04/23 History tablet (Vitamin C) multivitamin 1 tab PO DAILY ##0 10/09/20 10/29/23 10/28/23 08:00 History melatonin 5 mg capsule 10 mg PO BEDTIME PRN insomnia 10/27/20 10/29/23 12/15/21 History miscellaneous medical supply #1 ea 04/06/21 10/29/23 Unknown Rx polyethylene glycol 3350 17 17 g PO DAILY PRN constipation 30 03/22/22 10/29/23 10/27/23 21:00 Rx gram/dose oral powder (Miralax) days #510 grams nitroglycerin 0.4 mg sublingual 0.4 mg sublingual Q5M PRN Chest 04/15/22 10/29/23 Unknown Rx tablet Pain #25 tabs blood sugar diagnostic (OneTouch #50 strips 01/28/23 10/29/23 Unknown Rx Ultra Test strips) diaper,brief,adult,disposable #360 ea 01/31/23 10/29/23 Unknown Rx (Depend Underwear For Women XL) blood-glucose meter (Blood Glucose #1 ea 02/08/23 10/29/23 Unknown Rx Monitoring kit) blood-glucose meter,continuous #1 ea 02/08/23 10/29/23 Unknown Rx (Dexcom G7 Front End Java Developer) miscellaneous medical supply See Rx Instructions miscellaneous 02/21/23 10/29/23 10/27/23 Rx .COMPLEX #1 ea pen needle, diabetic 31 gauge x #100 ea 04/18/23 10/29/23 Unknown Rx 5/16 (TechLITE Pen Needle) docusate sodium 100 mg capsule See Rx Instructions .Route 04/23/23 10/29/23 10/28/23 08:00 Rx .COMPLEX #360 caps suvorexant 20 mg tablet (Belsomra) 20 mg PO .qhs PRN insomnia 30 days 05/31/23 10/29/23 Unknown Rx #30 tabs insulin lispro 100 unit/mL See Rx Instructions .Route 06/15/23 10/29/23 10/28/23 Rx subcutaneous pen (Humalog KwikPen .COMPLEX #15 mL (U-100) Insulin) bupropion HCl 300 mg 24 hr tablet, 300 mg PO DAILY #30 tabs 07/05/23 10/29/23 10/28/23 08:00 Rx extended release buspirone 15 mg tablet See Rx Instructions .Route 07/05/23 10/29/23 10/28/23 08:00 Rx .COMPLEX #90 tabs duloxetine 60 mg capsule,delayed 120 mg (2 x 60 mg) PO DAILY #60 07/05/23 10/29/23 10/28/23 08:00 Rx release caps albuterol sulfate 90 mcg/actuation 2 puff inhalation Q6H PRN 07/18/23 10/29/23 10/28/23 08:00 Rx aerosol inhaler (ProAir HFA) shortness of breath or wheezing #8.5 grams apixaban 5 mg tablet (Eliquis) 5 mg PO BID 30 days #60 tabs 07/18/23 10/29/23 10/28/23 08:00 Rx clopidogrel 75 mg tablet 75 mg PO DAILY 90 days #90 tabs 07/18/23 10/29/23 10/28/23 08:00 Rx famotidine 20 mg tablet 20 mg PO BID 90 days #180 tabs 07/18/23 10/29/23 10/28/23 08:00 Rx furosemide 40 mg tablet 40 mg PO BID 90 days #180 tabs 07/18/23 10/29/23 10/28/23 08:00 Rx metformin 1,000 mg tablet 1,000 mg PO BID 90 days #180 tabs 07/18/23 10/29/23 Unknown Rx methocarbamol 750 mg tablet 750 mg PO BID PRN muscle spasm 30 07/18/23 10/29/23 10/27/23 21:00 Rx days #60 tabs metoprolol tartrate 100 mg tablet 100 mg PO Q12H 90 days #180 tabs 07/18/23 10/29/23 10/28/23 Rx oxybutynin chloride 15 mg 15 mg PO DAILY 90 days #90 tabs 07/18/23 10/29/23 10/28/23 08:00 Rx tablet,extended release 24 hr potassium chloride 20 mEq 20 meq PO BID 90 days #180 tabs 07/18/23 10/29/23 10/28/23 08:00 Rx tablet,extended release(part/cryst) pramipexole 0.5 mg tablet See Rx Instructions .Route 07/18/23 10/29/23 Unknown Rx .COMPLEX #90 tabs atorvastatin 40 mg tablet 40 mg PO DAILY #90 tabs 08/10/23 10/29/23 10/28/23 08:00 Rx cholecalciferol (vitamin D3) 1,250 See Rx Instructions .Route 08/16/23 10/29/23 10/24/23 08:00 Rx mcg (50,000 unit) capsule .COMPLEX #4 caps blood-glucose sensor (Dexcom G7 #3 ea 08/19/23 10/29/23 Unknown Rx Sensor device) cyclobenzaprine 5 mg tablet 10 mg (2 x 5 mg) PO QPM 90 days 08/29/23 10/29/23 10/28/23 08:00 Rx #180 tabs miscellaneous medical supply See Rx Instructions miscellaneous 09/08/23 10/29/23 10/27/23 Rx .COMPLEX #1 ea insulin glargine 100 unit/mL (3 68 unit (0.68 mL) SUBCUT DAILY 90 09/13/23 10/29/23 10/28/23 08:00 Rx mL) subcutaneous pen (Lantus days #65 mL Solostar U-100 Insulin) loratadine 10 mg tablet (Allergy See Rx Instructions .Route 09/20/23 10/29/23 10/28/23 Rx Relief (loratadine)) .COMPLEX #90 tabs aspirin 81 mg tablet,delayed See Rx Instructions .Route 09/28/23 10/29/23 10/28/23 08:00 Rx release .COMPLEX #90 tabs diltiazem HCl 120 mg 120 mg PO BID #180 caps 10/04/23 10/29/23 10/28/23 08:00 Rx capsule,extended release 12 hr azelastine 0.05 % eye drops 1 drp ophthalmic (eye) BID 1 week 10/13/23 10/29/23 10/27/23 Rx #6 mL risperidone 0.5 mg tablet 0.5 mg PO .qhs #30 tabs 10/13/23 10/29/23 Unknown Rx diclofenac sodium 50 mg 50 mg PO BID PRN pain 30 days #60 10/17/23 10/29/23 10/27/23 21:00 Rx tablet,delayed release tabs hydrocodone 5 mg-acetaminophen 325 1 tab PO DAILY pain, severe 30 10/17/23 10/29/23 Unknown Rx mg tablet days #30 tabs miscellaneous medical supply See Rx Instructions miscellaneous 10/17/23 10/29/23 10/27/23 Rx .COMPLEX #1 ea pregabalin 75 mg capsule 75 mg PO BID 30 days #60 caps 10/17/23 10/29/23 10/28/23 08:00 Rx Allergies Allergy/AdvReac Type Severity Reaction Status Date / Time propoxyphene [From Darvon] Allergy Unknown Unknown Verified 10/13/23 07:48 fluoxetine [From Prozac] AdvReac Severe ADR-Halluci Verified 10/13/23 07:48 nating Current Medications Generic Name Dose Route Start Last Admin Trade Name Freq PRN Reason Stop Dose Admin Hydrocodone Bitart/Acetaminophen 1 tab 10/29/23 09:00 10/29/23 08:25 Hydrocodone-Acetaminophen 5-325 Mg Tablet PO 1 tab DAILY LEORA Administration Albuterol/Ipratropium 3 ml 10/28/23 18:43 10/29/23 20:30 Ipratropium-Albuterol 3 Ml Neb INHALATION 3 ml Q6H PRN Administration SHORTNESS OF BREATH Atorvastatin Calcium 40 mg 10/29/23 09:00 10/29/23 08:25 Atorvastatin 40 Mg Tablet PO 40 mg DAILY LEORA Administration Bupropion HCl 300 mg 10/29/23 09:00 10/29/23 08:25 Bupropion Xl (24 Hr) 150 Mg Tablet PO 300 mg DAILY LEORA Administration Diltiazem HCl 90 mg 10/29/23 11:00 10/30/23 06:10 Diltiazem 60 Mg Tablet PO 90 mg Q6H LEORA Administration Folic Acid/Iron/Vitamin B12 1 each 10/29/23 11:00 10/29/23 11:32 Iron Complex Forte Capsule PO 1 each DAILY LEORA Administration Furosemide 40 mg 10/29/23 08:00 10/29/23 08:25 Furosemide 40 Mg Tablet PO 40 mg DAILY@0800 LEORA Administration Sodium Chloride 1,000 mls @ 30 mls/hr 10/29/23 07:58 10/30/23 06:46 Sodium Chloride 0.9% IV 10/30/23 07:57 30 mls/hr .Q24H ONE Administration Insulin Glargine 50 unit 10/29/23 09:00 10/29/23 08:57 Insulin Glargine 100 Units/1 Ml SUBCUT 50 unit DAILY LEORA Administration Insulin Human Lispro 0 unit 10/29/23 08:00 10/29/23 17:40 Insulin Lispro 100 Unit/1 Ml SUBCUT 6 unit TIDWM LEORA Administration Protocol Metoprolol Tartrate 100 mg 10/28/23 19:00 10/30/23 06:09 Metoprolol Tartrate 50 Mg Tablet PO 100 mg Q12H LEORA Administration Pantoprazole Sodium 40 mg 10/28/23 18:45 10/30/23 06:10 Pantoprazole 40 Mg Sdv IVP 40 mg Q12H LEORA Administration Potassium Chloride 20 meq 10/29/23 09:00 10/29/23 08:25 Potassium Chloride Er 20 Meq Tablet PO 20 meq DAILY LEORA Administration Risperidone 0.5 mg 10/28/23 21:00 10/29/23 20:08 Risperidone 0.25 Mg Tablet PO 0.5 mg BEDTIME LEORA Administration [facility] Anesthesia Medical History Insomnia Wheelchair bound Oxygen dependent 2 L at home Small bowel obstruction History of colonic diverticulitis Congestive heart failure Paroxysmal SVT (supraventricular tachycardia) Nicotine dependence, cigarettes, with other nicotine-induced disorders DM type 2 (diabetes mellitus, type 2) Chest pain Atypical chest pain Paroxysmal A-fib Chronic anticoagulation initiated apixaban 08/2020 for paroxysmal atrial fibrillation Paroxysmal atrial fibrillation (~08/2020) NONA (obstructive sleep apnea) Uses CPAP Fibromyalgia Peripheral Vascular Disease Mixed stress and urge urinary incontinence Chronic pain syndrome Due to her weight and other comorbidities I do not think that there is much that pain management would be able to do. They can do localized injections or treatments on specific joints but she would never be a surgical candidate. Bipolar depression Hypertension, benign Overactive bladder RLS (restless legs syndrome) Constipation, chronic COPD (chronic obstructive pulmonary disease) GERD (gastroesophageal reflux disease) CAD (coronary artery disease) Diabetes mellitus type 2 in obese Hyperlipemia Chronic headache Panic disorder [episodic paroxysmal anxiety] Generalized anxiety disorder Major depressive disorder, recurrent, moderate Surgical History H/O: hysterectomy Hx of cholecystectomy S/P appendectomy H/O thyroidectomy Family History Mother , at age 75 Hypertension Father , at age 87 Hypertension Denies family history of Lung disease Stroke Social History Smoking and tobacco/nicotine status: current every day tobacco/nicotine user cigarettes Packs smoked per day: 1 Years cigarettes smoked: 44 Alcohol intake: never Substance/Drug Use: never Adopted: No Caregiver/support person: No Lives independently: Yes Household members: none Housing: Apartment Marital status: / Number of children: 8 Number of grandchildren: 14 Highest education level completed: Some College, No Degree service: No Current occupational status: disabled Pets and animals: Yes Pets & animals: dog(s) Leisure activites: art, music, reading and other Sexually active: No Do you think of yourself as: Straight/Heterosexual Current gender identity: Female Lilliam/Yarsanism: Adventism Special lilliam needs: No Agree to transfusion: Yes Female Reproductive History Para: 8 Spontaneous abortions: No Data Anesthesia 10/30/23 03:37 10/30/23 03:37 Short CBC 10/28/23 10/28/23 10/29/23 Range/Units 15:28 18:38 03:24 WBC 7.88 7.48 (3.29-11.43) 10^3/uL Hgb 8.20 L 8.50 L 8.20 L (11.27-16.99) g/dL Hct 30.0 L 29.9 L 29.7 L (36-47) % MCV 81.7 L 82.5 L (85-98) fl Plt Count 153 L 145 L (157-399) 10^3/cmm Neut % (Auto) 68.7 70.0 % Neut # (Auto) 5.42 5.24 (1.8-7.7) 10^3/uL 10/30/23 Range/Units 03:37 WBC 9.71 (3.29-11.43) 10^3/uL Hgb 7.80 L (11.27-16.99) g/dL Hct 27.9 L (36-47) % MCV 82.3 L (85-98) fl Plt Count 183 (157-399) 10^3/cmm Neut % (Auto) 73.0 % Neut # (Auto) 7.08 (1.8-7.7) 10^3/uL BMP 10/28/23 10/29/23 10/30/23 15:28 03:24 03:37 Sodium 138 138 139 Potassium 4.4 4.5 4.5 Chloride 102 103 104 Carbon Dioxide 23 25 29 BUN 13 9 8 Creatinine 0.5 0.5 0.6 Glucose 273 H 245 H 218 H Calcium 8.7 8.7 8.5 Cardiac Enzymes 10/28/23 10/28/23 10/28/23 Range/Units 15:28 17:12 21:36 Troponin T Baseline 17 H (0-10) ng/L Troponin T 120 Minute 19.65 H (0-10) ng/L Delta Troponin T 2.65 (0-10) ABS# Troponin T Hi Sens 6Hr 20.40 H (0-10) ng/L Troponin T Hi Sens 6Hr Delta 3.40 (0-12) ng/L Liver Function 10/28/23 Range/Units 15:28 Total Bilirubin 0.3 (0.15-1.2) mg/dL AST 39 H (0-32) U/L ALT 16 (0-33) U/L Alkaline Phosphatase 155 H (35-105) U/L Albumin 3.6 (3.5-5.2) g/dL ABG 10/29/23 10/29/23 02:24 20:30 Specimen Type Arterial Arterial Sample Site Brachial, right Brachial, left ABG pH 7.35 7.32 L ABG pCO2 47.3 H 50.9 H ABG pO2 65.6 L 54.0 L ABG HCO3 26.3 H 26.4 H ABG O2 Saturation 91.8 84.9 ABG Base Excess 0.5 0.0 A-a O2 Gradient 3.3 L 4.4 L O2 Delivery Device Nc Nrb O2 Liters/Min 15.0 Cardiac Studies: Echocardiogram 10/29/23 Echocardiogram Limited Views 09/09/20 Sestamibi Stress Test (Cardiology) 09/23/20
--- NOTE | 2023-10-30 07:17 | PM.MISC ---
Miscellaneous Note Purpose of Documentation: Update on patient care Note: Upper endoscopy was done today. There is no evidence of acute upper GI bleeding. I did not see any evidence of residual blood in the stomach or duodenum, there was gastritis and some small erosions but there were none that send normal endoscopy, no biopsies were taken as patient is still under the effects of the Plavix. Rectal examination was also done, there is no evidence of active bleeding no blood in the glove, patient has external hemorrhoids at the moment they are not inflamed. Per patient report she has seen some bleeding from the hemorrhoids in the past. If there is a continues downtrend of hemoglobin I may recommend that we proceed with a CT abdomen and pelvis with contrast to evaluate for any possible active source of bleeding, in the interim I think will be appropriate to hold anticoagulation. I will plan to offer colonoscopy to the patient in the outpatient setting as anticoagulation needs to be held for this procedure.
[2023-10-30 07:28] LABS: Glucose Point of Care 223 mg/dL (70-110)
--- NOTE | 2023-10-30 07:44 | ANE.PACU2 ---
Inpatient post-anesthesia follow up: Airway intact: Yes Vital signs: Temperature 98.2 F Pulse Rate 92 Respiratory Rate 22 Blood Pressure 134/88 Pulse Oximetry 92 Oxygen Delivery Me thod Nasal Cannula Oxygen Flow Rate 4 Fraction of Inspir ed Oxygen 55 Hydration adequate: Yes Nausea and vomiting: No Pain level: 1 Mental status: Baseline
[2023-10-30] MEDS: HYDROcodone-acetaminophen 5-325 mg Tablet 1 TAB PO (08:40)
[2023-10-30] MEDS: potassium chloride ER 20 mEq Tablet PO (08:40)
[2023-10-30] MEDS: iron complex forte Capsule 1 EACH PO (08:40)
[2023-10-30] MEDS: atorvastatin 40 mg Tablet PO (08:40)
[2023-10-30] MEDS: buPROPion XL (24 HR) 150 mg Tablet 300 MG PO (08:40)
[2023-10-30] MEDS: FUROsemide 40 mg Tablet PO (08:40)
[2023-10-30] MEDS: insulin glargine 100 units/1 mL 50 UNIT SUBCUT (08:45)
[2023-10-30] MEDS: insulin lispro 100 unit/1 mL SUBCUT ×3 (08:45→17:14)
[2023-10-30] MEDS: nystatin powder 15 gm Btl 1 APPLIC TOPICAL ×2 (08:48→17:14)
[2023-10-30 11:31] LABS: Glucose Point of Care 208 mg/dL (70-110)
--- NOTE | 2023-10-30 12:10 | P.PN_ITS ---
Subjective 2 Subjective: seen this am pt s/p egd, gastritis seen, no active bleeding she wears cpap at home says she will be going home tomorrow no actue complaints at this time vitals stable at 2L NC at home, now on 3L talked with dr. villar regarding egd results hb 7.80 this am no more episodes of dark stool Vitals/I&O/Wt Last Vital Signs Temp 98.2 F 10/30/23 04:00 Pulse 92 10/30/23 12:00 Resp 21 H 10/30/23 12:00 BP 120/82 10/30/23 12:00 Pulse Ox 97 10/30/23 12:00 O2 Del Method CPAP 10/30/23 08:01 O2 Flow Rate 4 10/30/23 06:47 FiO2 40 10/30/23 08:01 10/29/23 10/30/23 10/30/23 22:59 06:59 14:59 Intake Total 240 / 860 200 / 200 Output Total 925 / 1625 250 / 1875 50 / 50 Balance -685 / -765 -250 / -1015 150 / 150 Weight last 48 hrs Weight 144 kg Weight 146.624 kg Weight 149.187 kg Weight 117.934 kg Physical Exam 2 Narrative: Awake and alert Euvolemic GCS 15 Nonfocal neuroexam Venous's dermatitis, currently on 3 L Nonfocal neuroexam No stigmata signs of fluid overload S1, S2 Urinary Catheter Management: Wolfe: Cath Placed During This Visit: yes Reason for Continuing Indwelling Catheter: Accurate Measurement of Urinary Output in Critically Ill Patients Urinary Catheter Date of Insertion: 10/29/23 Urinary Catheter Time of Insertion: 10:49 Data 10/30/23 03:37 10/30/23 03:37 A&P Assessment and plan (1) Congestive heart failure: Qualifiers: Heart failure type: unspecified Heart failure chronicity: chronic Qualified Code(s): I50.9 - Heart failure, unspecified (2) Paroxysmal SVT (supraventricular tachycardia): (3) Atrial flutter: (4) Paroxysmal A-fib: (5) Chronic anticoagulation: (6) Diabetes mellitus type 2 in obese: (7) GERD (gastroesophageal reflux disease): Qualifiers: Esophagitis presence: without esophagitis Qualified Code(s): K21.9 - Gastro-esophageal reflux disease without esophagitis (8) Constipation, chronic: (9) Acute anemia: (10) RLS (restless legs syndrome): (11) NONA (obstructive sleep apnea): (12) Smoking addiction: (13) Tachy-andra syndrome: Plan A-fib without RVR Patient gets tachycardic with minimal exertion, yesterday her heart rate was in 60s on amiodarone was discontinued yesterday Today we have increased the dose of Cardizem continue metoprolol Anticoagulation antiplatelets on hold Sick sinus syndrome tachybradycardia syndrome? Diastolic CHF: No acute exacerbation Acute GI blood loss anemia Will give 1 unit PRBC Iron transfusion Will start her on p.o. iron supplement Patient should not take aspirin Plavix and Eliquis which I think is the culprit to cause bleeding at this point She lives in apartment with her dog Takes multiple medications she at least has more than 20 medications on her JUN Full code Clear liquid diet Protonix and sucralfate on board N.p.o. after midnight Appreciate general surgery recommendation for EGD tomorrow Todays plan 10/29 - uo 1225 - EGD completed today. gastritis seen, official report pending - start on GI soft diet, - continue to monitor on telemetry, no bradycardic events reported - pt on cardizem and metoprolol - if pt continues to be stable in AM, may dc home. - continue to hold aspirin, plavix and eliquis. - May transfer to [facility] today Attestations 2 Medical Necessity Statement*: requries continued hospitalization for observation s/p EGD. Diagnoses Chronic congestive heart failure, unspecified heart failure type I50.9 Heart failure type: unspecified Heart failure chronicity: chronic Paroxysmal SVT (supraventricular tachycardia) I47.1 Atrial flutter I48.92 Paroxysmal A-fib I48.0 Chronic anticoagulation Z79.01 Diabetes mellitus type 2 in obese E11.69; E66.9 Gastroesophageal reflux disease without esophagitis K21.9 Esophagitis presence: without esophagitis Constipation, chronic K59.09 Acute anemia D64.9 RLS (restless legs syndrome) G25.81 NONA (obstructive sleep apnea) G47.33 Smoking addiction F17.200 Tachy-andra syndrome I49.5
--- NOTE | 2023-10-30 13:55 | PC.NURSE ---
This nurse assumed care of pt at 1336 from GALI Garcia in ICU.
[2023-10-30 16:44] LABS: Glucose Point of Care 294 mg/dL (70-110)
[2023-10-30] MEDS: sucralfate 1 gm Tablet PO (17:15)
[2023-10-30 17:18] LABS: Basophils % 0.1 %; Eosinophils # 0.1 10^3/uL (0.0-0.8); Lymphocytes # 1.5 10^3/uL (0.8-4.8); Lymphocytes % 16.3 %; Mean Corpuscular HGB Conc 27.2 g/dL (30-55); Mean Corpuscular Hemoglobin 22.7 pg (27-33); Mean Corpuscular Volume 83.3 fl (85-98); Mean Platelet Volume 12.5 fL (7.4-10.4); Monocytes # 0.6 10^3/uL (0.2-0.9); Monocytes % 6.9 %; Neutrophils # 6.85 10^3/uL (1.8-7.7); Neutrophils % 75.5 %; Nucleated Red Blood Cells % 0 %; Platelet Count 167 10^3/cmm (157-399); Red Blood Count 3.48 10^6/uL (3.85-5.65); Red Cell Distribution Width 16.8 % (12.1-15.1); White Blood Count 9.08 10^3/uL (3.29-11.43)
[2023-10-30] MEDS: risperiDONE 0.25 mg Tablet 0.5 MG PO (20:11)
[2023-10-30 20:25] LABS: Glucose Point of Care 283 mg/dL (70-110)
[2023-10-31] VITALS (11 sets, daily range): BP systolic 117–151; BP diastolic 61–79; PULSE 88–93; RESP 16–20; TEMP 36.6–36.9; O2SAT 95–100; BMI 54.9
[2023-10-31] MEDS: dilTIAZem 60 mg Tablet 90 MG PO ×3 (05:44→17:03)
[2023-10-31] MEDS: pantoprazole 40 mg SDV IVP (05:45)
[2023-10-31 05:58] LABS: Basophils % 0.2 %; Eosinophils # 0.2 10^3/uL (0.0-0.8); Eosinophils % 1.8 %; Hematocrit 27.1 % (36-47); Lymphocytes # 1.5 10^3/uL (0.8-4.8); Lymphocytes % 18.9 %; Mean Corpuscular Hemoglobin 23.1 pg (27-33); Mean Corpuscular Volume 82.4 fl (85-98); Mean Platelet Volume 12.3 fL (7.4-10.4); Monocytes # 0.7 10^3/uL (0.2-0.9); Monocytes % 8.4 %; Neutrophils # 5.72 10^3/uL (1.8-7.7); Neutrophils % 70.5 %; Nucleated Red Blood Cells % 0 %; Platelet Count 215 10^3/cmm (157-399); Red Blood Count 3.29 10^6/uL (3.85-5.65); Red Cell Distribution Width 16.8 % (12.1-15.1); White Blood Count 8.13 10^3/uL (3.29-11.43)
[2023-10-31] MEDS: metoprolol tartrate 50 mg Tablet 100 MG PO (06:09)
[2023-10-31] MEDS: sucralfate 1 gm Tablet PO ×2 (06:09→17:03)
[2023-10-31 06:19] LABS: Anion Gap 11.1 (5-19); Blood Urea Nitrogen 9 mg/dL (8-23); Calcium 8.4 mg/dL (8.5-10.5); Carbon Dioxide 28 mmol/L (22-29); Chloride 103 mmol/L (98-107); Creatinine Clr Calc Pharmacy 99.2619; Glomerular Filtration Rate 123.4 mL/min (90-130); Glucose 212 mg/dL (65-115); Magnesium 1.9 mg/dL (1.7-2.3); Osmolality Calculated 291 mOsm/kg (285-295); Potassium 4.1 mmol/L (3.5-5.1); Sodium 138 mmol/L (136-145)
[2023-10-31 06:32] LABS: Glucose Point of Care 228 mg/dL (70-110)
[2023-10-31] MEDS: iron complex forte Capsule 1 EACH PO (07:53)
[2023-10-31] MEDS: buPROPion XL (24 HR) 150 mg Tablet 300 MG PO (07:54)
[2023-10-31] MEDS: potassium chloride ER 20 mEq Tablet PO (07:54)
[2023-10-31] MEDS: FUROsemide 40 mg Tablet PO (07:54)
[2023-10-31] MEDS: HYDROcodone-acetaminophen 5-325 mg Tablet 1 TAB PO (07:54)
[2023-10-31] MEDS: atorvastatin 40 mg Tablet PO (07:54)
[2023-10-31] MEDS: nystatin powder 15 gm Btl 1 APPLIC TOPICAL (07:54)
[2023-10-31] MEDS: insulin lispro 100 unit/1 mL SUBCUT ×3 (07:55→17:02)
[2023-10-31] MEDS: insulin glargine 100 units/1 mL 50 UNIT SUBCUT (09:05)
[2023-10-31 11:11] LABS: Glucose Point of Care 331 mg/dL (70-110)
--- NOTE | 2023-10-31 11:13 | PC.SOCIAL ---
IMM Updated Updated pt on IMM. No questions voiced. Provided pt a copy. Initialed, dated, & timed a copy & placed in chart.
--- NOTE | 2023-10-31 11:26 | PM.DCS ---
Discharge Providers Date of Admission: 10/29/23 10:37 Date of Discharge: October 31, 2023 Attending Provider at Admission: Rehana Szymanski MD Attending Provider at Discharge: Rehana Szymanski MD Primary Care Provider: Kristine Rodriguez MD Diagnoses at Discharge Discharge Diagnosis (1) Congestive heart failure: Status: Acute Qualifiers: Heart failure type: unspecified Heart failure chronicity: chronic Qualified Code(s): I50.9 - Heart failure, unspecified (2) Paroxysmal SVT (supraventricular tachycardia): Status: Acute (3) Atrial flutter: Status: Acute (4) Paroxysmal A-fib: Status: Acute (5) Chronic anticoagulation: Status: Acute Permanent problem details: initiated apixaban 08/2020 for paroxysmal atrial fibrillation (6) Diabetes mellitus type 2 in obese: Status: Acute (7) GERD (gastroesophageal reflux disease): Status: Chronic Qualifiers: Esophagitis presence: without esophagitis Qualified Code(s): K21.9 - Gastro-esophageal reflux disease without esophagitis (8) Constipation, chronic: Status: Chronic (9) Acute anemia: Status: Acute (10) RLS (restless legs syndrome): Status: Acute (11) NONA (obstructive sleep apnea): Status: Acute Permanent problem details: Uses CPAP (12) Smoking addiction: Status: Acute (13) Tachy-andra syndrome: Status: Acute Reason for Visit Reason for Visit: elevated hr Hospital Course Hospital Course 68-year female was admitted to the hospital for management evaluation of A-fib RVR, her Cardizem dose was increased to 360 mg daily instead of 240 mg she was continued on her home dose of metoprolol 100 mg every 12 hours, she was initially put in ICU with amiodarone drip which I discontinue within an hour because her heart rate was in 60s at the time of evaluation, at this point would not seem typical signs of sick sinus syndrome. Echo showed preserved action fraction, during hospitalization patient required EGD for melanotic stools her hemoglobin dropped down to 7.6. Patient initially refused blood transfusion for 2 days because she thought she will get worsening of her hemorrhoids however with counseling she decided to except 1 unit PRBC. EGD showed gastritis without active bleeding ulcer. Please note patient was taking aspirin Plavix and Eliquis she was on Eliquis for previous history of A-fib and DVT I have counseled patient not to take all 3 for now we will ask her to hold Eliquis for at least 2 weeks before resuming it she should not be on aspirin Plavix she is not endorsing any history of stents in her heart. Catheterization in the past revealed normal coronary vessels. She uses 2 L of oxygen at baseline for her COPD. She lives in an apartment with her dog. Patient uses a walker and a wheelchair at baseline Physical Exam Narrative: Awake and alert Nonfocal neuroexam GCS 15 Abdomen distended nontender Urinary Catheter Management: Wolfe: Cath Placed During This Visit: yes Reason for Continuing Indwelling Catheter: Other Urinary Catheter Date of Insertion: 10/29/23 Urinary Catheter Time of Insertion: 10:49 Discharge Data Studies Completed and Pending Completed Studies During Hospitalization Category Date Time Status XR chest 1V portable [id number] Stat Exams 10/28/23 15:09 Completed XR chest 1V portable [id number] Stat Exams 10/29/23 02:13 Completed XR chest 1V portable [id number] Stat Exams 10/29/23 20:21 Completed CV. echo wo/w contrast [id number] Routine Ultrasound 10/29/23 18:43 Completed Pending at discharge Category Date Time Status PRBC [Leukocyte Reduced RBC] Routine Lab 10/31/23 10:44 Ordered Type and Screen Routine Lab 10/31/23 10:44 Ordered Radiology Impressions Chest X-Ray 10/29/23 20:21 IMPRESSION: Findings most consistent with qday-nm-sthwilen CHF. Coarsened lung markings without focal consolidation at this time. Laboratory Results WBC 8.13 10^3/uL (3.29-11.43) 10/31/23 05:31 RBC 3.29 10^6/uL (3.85-5.65) L 10/31/23 05:31 Hgb 7.60 g/dL (11.27-16.99) L 10/31/23 05:31 Hct 27.1 % (36-47) L 10/31/23 05:31 MCV 82.4 fl (85-98) L 10/31/23 05:31 MCH 23.1 pg (27-33) L 10/31/23 05:31 MCHC 28.0 g/dL (30-55) L 10/31/23 05:31 RDW 16.8 % (12.1-15.1) H 10/31/23 05:31 Plt Count 215 10^3/cmm (157-399) 10/31/23 05:31 MPV 12.3 fL (7.4-10.4) H 10/31/23 05:31 Neut % (Auto) 70.5 % 10/31/23 05:31 Lymph % (Auto) 18.9 % 10/31/23 05:31 Canadian % (Auto) 8.4 % 10/31/23 05:31 Eos % (Auto) 1.8 % 10/31/23 05:31 Baso % (Auto) 0.2 % 10/31/23 05:31 Neut # (Auto) 5.72 10^3/uL (1.8-7.7) 10/31/23 05:31 Lymph # (Auto) 1.5 10^3/uL (0.8-4.8) 10/31/23 05:31 Canadian # (Auto) 0.7 10^3/uL (0.2-0.9) 10/31/23 05:31 Eos # (Auto) 0.2 10^3/uL (0.0-0.8) 10/31/23 05:31 Baso # (Auto) 0.0 10^3/uL (0.0-0.1) 10/31/23 05:31 Nucleated RBC % (auto) 0 % 10/31/23 05:31 Nucleated RBCs # 0.0 /100WBC 10/31/23 05:31 Specimen Type Arterial 10/29/23 20:30 Sample Site Brachial, left 10/29/23 20:30 ABG pH 7.32 (7.35-7.45) L 10/29/23 20:30 ABG pCO2 50.9 mmHg (35-45) H 10/29/23 20:30 ABG pO2 54.0 mmHg (80.0-100.0) L 10/29/23 20:30 ABG HCO3 26.4 mmol/L (22-26) H 10/29/23 20:30 ABG O2 Saturation 84.9 10/29/23 20:30 ABG Base Excess 0.0 mmol/L (-2.0-2.0) 10/29/23 20:30 Robert Test Pos 10/29/23 20:30 A-a O2 Gradient 4.4 mmHg (5-10) L 10/29/23 20:30 Hematocrit 29.2 % (37-47) L 10/29/23 20:30 Hgb O2 Saturation 83.4 % (95-100) L 10/29/23 20:30 Carboxyhemoglobin 1.4 %THgb (0.4-20.1) 10/29/23 20:30 Methemoglobin 0.4 % (0.4-1.5) 10/29/23 20:30 Total Hemoglobin 9.5 g/dL (12-16) L 10/29/23 20:30 Sodium 142.0 mmol/L (131-143) 10/29/23 20:30 Potassium 4.0 mmol/L (3.5-5.0) 10/29/23 20:30 Glucose 235.0 mg/dL (70-115) H 10/29/23 20:30 Ionized Calcium 1.2 mmol/L (1.1-1.4) 10/29/23 20:30 O2 Delivery Device Nrb 10/29/23 20:30 O2 Liters/Min 15.0 % 10/29/23 20:30 Public Health Staff Nurse ID [email or web address] 10/29/23 20:30 Sodium 138 mmol/L (136-145) 10/31/23 05:31 Potassium 4.1 mmol/L (3.5-5.1) 10/31/23 05:31 Chloride 103 mmol/L (98-107) 10/31/23 05:31 Carbon Dioxide 28 mmol/L (22-29) 10/31/23 05:31 Anion Gap 11.1 (5-19) 10/31/23 05:31 BUN 9 mg/dL (8-23) 10/31/23 05:31 Creatinine 0.5 mg/dL (0.5-0.9) 10/31/23 05:31 GFR Calculation 123.4 mL/min (90-130) 10/31/23 05:31 Glucose 212 mg/dL (65-115) H 10/31/23 05:31 POC Glucose 331 mg/dL (70-110) H 10/31/23 10:58 Calculated Osmolality 291 mOsm/kg (285-295) 10/31/23 05:31 Calcium 8.4 mg/dL (8.5-10.5) L 10/31/23 05:31 Magnesium 1.9 mg/dL (1.7-2.3) 10/31/23 05:31 Iron 23 ug/dL (37-145) L 10/28/23 15:28 TIBC 460 mcg/dl 10/28/23 15:28 % Saturation 5.0 % (20-50) L 10/28/23 15:28 Unsat Iron Binding 437 ug/dL (112-347) H 10/28/23 15:28 Ferritin 15 ng/mL (15-150) 10/28/23 15:28 Total Bilirubin 0.3 mg/dL (0.15-1.2) 10/28/23 15:28 AST 39 U/L (0-32) H 10/28/23 15:28 ALT 16 U/L (0-33) 10/28/23 15:28 Alkaline Phosphatase 155 U/L (35-105) H 10/28/23 15:28 Troponin T Baseline 17 ng/L (0-10) H 10/28/23 15:28 Troponin T 120 Minute 19.65 ng/L (0-10) H 10/28/23 17:12 Delta Troponin T 2.65 ABS# (0-10) 10/28/23 17:12 Troponin T Hi Sens 6Hr 20.40 ng/L (0-10) H 10/28/23 21:36 Troponin T Hi Sens 6Hr Delta 3.40 ng/L (0-12) 10/28/23 21:36 Total Protein 7.3 g/dL (6.6-8.7) 10/28/23 15:28 Albumin 3.6 g/dL (3.5-5.2) 10/28/23 15:28 Globulin 3.7 g/dL (1.3-4.6) 10/28/23 15:28 TSH 0.94 uIU/mL (0.27-4.20) 10/28/23 15:28 TSH Cancelled 10/28/23 15:28 Vitals Last Vital Signs Temp 97.8 F 10/31/23 07:40 Pulse 93 10/31/23 08:29 Resp 16 10/31/23 08:29 BP 117/61 10/31/23 07:40 Pulse Ox 96 10/31/23 08:29 O2 Del Method Nasal Cannula 10/31/23 08:29 O2 Flow Rate 2 07/01/24 08:29 FiO2 40 10/31/23 04:00 Discharge Plan Discharge Patient Disposition: Home Condition: Stable Prescriptions: New diltiazem HCl [Cardizem LA] 360 mg tablet extended release 24 hr 360 mg PO DAILY Qty: 30 5RF pantoprazole [Protonix] 40 mg tablet,delayed release (DR/EC) 40 mg PO BID 56 Days Qty: 112 3RF sucralfate 1 gram tablet 1 g PO BID 56 Days Qty: 112 0RF Continued melatonin 5 mg capsule 10 mg PO BEDTIME PRN (Reason: insomnia) (DME) miscellaneous medical supply Misc See Rx Instructions .Route Qty: 1 0RF Rx Instructions: use 1-2l at night bupropion HCl 300 mg tablet extended release 24 hr 300 mg PO DAILY Qty: 30 5RF buspirone 15 mg tablet See Rx Instructions .ROUTE .COMPLEX Qty: 90 5RF Dose Instruction: TAKE ONE TABLET BY MOUTH THREE TIMES DAILY FOR ANXIETY Rx Instructions: TAKE ONE TABLET BY MOUTH THREE TIMES DAILY FOR ANXIETY duloxetine 60 mg capsule,delayed release(DR/EC) 120 mg PO DAILY Qty: 60 5RF albuterol sulfate [ProAir HFA] 90 mcg/actuation HFA aerosol inhaler 2 puff INHALATION Q6H PRN (Reason: shortness of breath or wheezing) Qty: 8.5 5RF famotidine 20 mg tablet 20 mg PO BID 90 Days Qty: 180 1RF furosemide 40 mg tablet 40 mg PO BID 90 Days Qty: 180 1RF Rx Instructions: AT 8 AM AND NOON metformin 1,000 mg tablet 1,000 mg PO BID 90 Days Qty: 180 1RF methocarbamol 750 mg tablet 750 mg PO BID PRN (Reason: muscle spasm) 30 Days Qty: 60 5RF metoprolol tartrate 100 mg tablet 100 mg PO Q12H 90 Days Qty: 180 1RF oxybutynin chloride 15 mg tablet extended release 24hr 15 mg PO DAILY 90 Days Qty: 90 1RF potassium chloride 20 mEq tablet,ER particles/crystals 20 meq PO BID 90 Days Qty: 180 1RF risperidone 0.5 mg tablet 0.5 mg PO .qhs Qty: 30 3RF nitroglycerin 0.4 mg tablet, sublingual 0.4 mg SUBLINGUAL Q5M PRN (Reason: Chest Pain) Qty: 25 2RF [place] [facility] [place] miscellaneous .COMPLEX Qty: 1 0RF Rx Instructions: Motorized wheelchair as directed; azelastine 0.05 % drops 1 drp ophthalmic (eye) BID 7 Days Qty: 6 0RF Rx Instructions: to both eyes hydrocodone-acetaminophen 5-325 mg tablet 1 tab PO DAILY 30 Days Qty: 30 0RF pregabalin 75 mg capsule 75 mg PO BID 30 Days Qty: 60 3RF miscellaneous medical [place] [facility] [place] Rx Instructions miscellaneous .COMPLEX Qty: 1 0RF Rx Instructions: Recliner lift chair as directed; polyethylene glycol 3350 [Miralax] 17 gram/dose powder 17 g PO DAILY PRN (Reason: constipation) 30 Days Qty: 510 2RF (DME) OneTouch Ultra Test Strip See Rx Instructions .ROUTE .COMPLEX Qty: 50 11RF Dose Instruction: TEST BLOOD SUGAR DAILY Rx Instructions: TEST BLOOD SUGAR 4 times a day (DME) Depend Underwear For Women XL [facility] [place] Rx Instructions .Route Qty: 360 11RF Rx Instructions: As directed, 12 daily (DME) blood-glucose meter [Blood Glucose Monitoring] Kit See Rx Instructions .Route Qty: 1 0RF Rx Instructions: Use to test blood sugar 4 times daily (DME) Dexcom G7 [employer] [facility] [place] Instructions .Route Qty: 1 0RF Rx Instructions: As directed miscellaneous medical supply [facility] [place] Rx Instructions miscellaneous .COMPLEX Qty: 1 0RF Rx Instructions: Wheelchair repair as directed; (DME) pen needle, diabetic [TechLITE Pen Needle] 31 gauge x 5/16 needle See Rx Instructions .ROUTE .COMPLEX Qty: 100 2RF Dose Instruction: TO USE WITH INSULIN 4 TIMES DAILY Rx Instructions: TO USE WITH INSULIN 4 TIMES DAILY docusate sodium 100 mg capsule See Rx Instructions .ROUTE .COMPLEX Qty: 360 1RF Dose Instruction: TAKE TWO CAPSULES BY MOUTH TWICE A DAY FOR 30 DAYS Rx Instructions: TAKE TWO CAPSULES BY MOUTH TWICE A DAY FOR 30 DAYS Belsomra 20 mg tablet 20 mg PO .qhs PRN (Reason: insomnia) 30 Days Qty: 30 3RF Patient Comments: Patient states that it has been discontinued. insulin lispro [Humalog KwikPen Insulin] 100 unit/mL insulin pen See Rx Instructions .ROUTE .COMPLEX Qty: 15 1RF Dose Instruction: INJECT 6 UNITS SUB-Q THREE TIMES A DAY 15 MINUTES BEFORE MEALS Rx Instructions: INJECT 6 UNITS SUB-Q THREE TIMES A DAY 15 MINUTES BEFORE MEALS atorvastatin 40 mg tablet 40 mg PO DAILY Qty: 90 0RF cholecalciferol (vitamin D3) 1,250 mcg (50,000 unit) capsule See Rx Instructions .ROUTE .COMPLEX Qty: 4 3RF Dose Instruction: TAKE ONE CAPSULE BY MOUTH WEEKLY ON MONDAYS FOR 2 MONTHS Rx Instructions: TAKE ONE CAPSULE BY MOUTH WEEKLY ON MONDAYS FOR 2 MONTHS (DME) DexKOTURA G7 Sensor Device See Rx Instructions .Route Qty: 3 0RF Rx Instructions: As directed cyclobenzaprine 5 mg tablet 10 mg PO QPM 90 Days Qty: 180 0RF insulin glargine [Lantus Solostar U-100 Insulin] 100 unit/mL (3 mL) insulin pen 68 unit SUBCUT DAILY 90 Days Qty: 65 0RF loratadine [Allergy Relief (loratadine)] 10 mg tablet See Rx Instructions .ROUTE .COMPLEX Qty: 90 0RF Dose Instruction: TAKE ONE TABLET BY MOUTH DAILY AT BEDTIME NEEDED FOR ALLERGY SYMPTOMS Rx Instructions: TAKE ONE TABLET BY MOUTH DAILY AT BEDTIME NEEDED FOR ALLERGY SYMPTOMS diltiazem HCl 120 mg capsule,extended release 12 hr 120 mg PO BID Qty: 180 1RF multivitamin Tablet 1 tab PO DAILY Qty: 0 ascorbic acid (vitamin C) [Vitamin C] 1,000 mg Tablet 1,000 mg PO DAILY Qty: 0 Discontinued clopidogrel 75 mg tablet 75 mg PO DAILY 90 Days Qty: 90 1RF pramipexole 0.5 mg tablet See Rx Instructions .ROUTE .COMPLEX Qty: 90 1RF Dose Instruction: TAKE ONE TABLET BY MOUTH AT BEDTIME FOR 90 DAYS Rx Instructions: TAKE ONE TABLET BY MOUTH AT BEDTIME FOR 90 DAYS diclofenac sodium 50 mg tablet,delayed release (DR/EC) 50 mg PO BID PRN (Reason: pain) 30 Days Qty: 60 5RF Rx Instructions: with food aspirin 81 mg tablet,delayed release (DR/EC) See Rx Instructions .ROUTE .COMPLEX Qty: 90 0RF Dose Instruction: TAKE ONE TABLET BY MOUTH DAILY Rx Instructions: TAKE ONE TABLET BY MOUTH DAILY No Action Eliquis 5 mg tablet 5 mg PO BID 30 Days Qty: 60 5RF Discharge Orders: Discharge Order (Routine); Ordered 10/31/23 Ordered By: Rehana Szymanski Other Ambulatory Orders: Complete Blood Count w/Auto (Routine) Timeframe: 2 Weeks Location: Determined by Patient Ordered By: Rehana Szymanski Referrals: Kristine Rodriguez MD [Primary Care Provider] - 2 weeks Discharge Diet: Cardiac Patient Instructions: GI Discharge Instructions, Opioid Safety Activity Restrictions/Additional Instructions: Please take Eliquis after 3 weeks I am giving you Protonix and sucralfate because of gastritis Do not take aspirin or Plavix you do not have any coronary artery disease For history of A-fib and DVT you may resume Eliquis if your hemoglobin stays stable please follow-up with your PCP for another H&H/CBC Discharge Attestations Time Spent in Discharge Care*: greater than 30 min Status at Discharge: Cognitive status at discharge: cognitively intact, Behavioral status at discharge: cooperative, Quality Metrics Clinical Quality Measures [ No reported AMI, CVA or VTE this stay] Coding Level of Care Code Acute Code for Chg Fwd Diagnoses Chronic congestive heart failure, unspecified heart failure type I50.9 Heart failure type: unspecified Heart failure chronicity: chronic Paroxysmal SVT (supraventricular tachycardia) I47.1 Atrial flutter I48.92 Paroxysmal A-fib I48.0 Chronic anticoagulation Z79.01 Diabetes mellitus type 2 in obese E11.69; E66.9 Gastroesophageal reflux disease without esophagitis K21.9 Esophagitis presence: without esophagitis Constipation, chronic K59.09 Acute anemia D64.9 RLS (restless legs syndrome) G25.81 NONA (obstructive sleep apnea) G47.33 Smoking addiction F17.200 Tachy-andra syndrome I49.5
--- NOTE | 2023-10-31 12:46 | PC.NURSE ---
D/c pending blood transfusion.
[2023-10-31 16:58] LABS: Glucose Point of Care 249 mg/dL (70-110)
== END 2023-10-31 18:45 | disposition home or self-care (01) ==
LOC: ER 15:37 → ICU 18:26 → MEDSURG 10-30 19:02 → ICU 11-09 14:28
PROVIDERS: Internal Medicine; Student in an Organized Health Care Education/Training Program; Surgery; Admitting Provider Internal Medicine; Emergency Provider Family Medicine; PCP Family Medicine; Visit Provider Internal Medicine
PROC: 0DJ08ZZ Inspection of Upper Intestinal Tract, Via Natural or Artificial Opening Endoscopic (ICD-10-PCS; CPT 43235; principal; 2023-10-30 07:00)
DX: I48.0 Paroxysmal atrial fibrillation (principal); I50.30 Unspecified diastolic (congestive) heart failure; I50.9 Heart failure, unspecified; I47.19 Other supraventricular tachycardia; I48.92 Unspecified atrial flutter; Z79.01 Long term (current) use of anticoagulants; E11.69 Type 2 diabetes mellitus with other specified complication; E66.9 Obesity, unspecified; Z68.43 Body mass index [BMI] 50.0-59.9, adult; K21.9 Gastro-esophageal reflux disease without esophagitis; K59.09 Other constipation; D64.9 Anemia, unspecified; G25.81 Restless legs syndrome; G47.33 Obstructive sleep apnea (adult) (pediatric); I49.5 Sick sinus syndrome; Z79.02 Long term (current) use of antithrombotics/antiplatelets; Z79.82 Long term (current) use of aspirin; Z99.81 Dependence on supplemental oxygen; J44.9 Chronic obstructive pulmonary disease, unspecified; Z86.718 Personal history of other venous thrombosis and embolism; Z99.3 Dependence on wheelchair; M79.7 Fibromyalgia; F17.210 Nicotine dependence, cigarettes, uncomplicated; K29.70 Gastritis, unspecified, without bleeding
CPT/HCPCS: 36415; 36416; 36430; 36600; 43235; 51702; 71045; 80048; 80051; 80053; 82274; 82330; 82728; 82805; 82962; 83540; 83550; 83735; 84443; 84484; 85014; 85018; 85025; 86850; 86900; 86920; 93005; 94640; 94660; 96365; 96366; 96372; 96374; 96376; 99285; A4222; C8929; C9113; G0378; J0283; J1815; J1940; J2704; J3490; J7030; P9040; Q9956

== ENCOUNTER → 2023-11-18 09:44 | Outpatient (BNVA) | payer MEDICARE, MEDICAID, SELFPAY ==
[2023-10-28 15:02] VITALS: BP 115/72; BMI 51.5
== END ==
PROVIDERS: PCP Family Medicine; Visit Provider Nurse Practitioner
DX: R39.9 Unspecified symptoms and signs involving the genitourinary system (principal); R10.9 Unspecified abdominal pain
CPT/HCPCS: 87077; 87086; 87184

== ENCOUNTER 2023-11-18 14:50 | Inpatient (IN) | payer MEDICARE, MEDICAID, SELFPAY ==
[2023-10-28 15:02] VITALS: BP 115/72; BMI 51.5
[2023-11-18] VITALS (9 sets, daily range): BP systolic 129–207; BP diastolic 71–109; PULSE 80–89; RESP 18–20; TEMP 36.6–36.9; O2SAT 89–98; BMI 59.2
--- NOTE | 2023-11-18 15:20 | XRR_ITS ---
PROCEDURE INFORMATION: Exam: XR Chest Exam date and time: 11/18/2023 3:27 PM Age: 68 years old Clinical indication: Cough and shortness of breath TECHNIQUE: Imaging protocol: Radiologic exam of the chest. Views: 1 view. COMPARISON: CR (CHEST, ) 10/29/2023 8:48 PM FINDINGS: Lungs: Small amount of scarring, atelectasis, and/or pneumonitis in both lung bases. Otherwise, unremarkable. Pleural spaces: Unremarkable. No pleural effusion. No pneumothorax. Heart/Mediastinum: Mild cardiomegaly. Bones/joints: Nothing acute. XR/XR chest 1V portable [id number] IMPRESSION: 1. Small amount of scarring, atelectasis, and/or pneumonitis in both lung bases. 2. Mild cardiomegaly.
--- NOTE | 2023-11-18 15:20 | CT_ITS ---
WS: [id number] CT HEAD TECHNIQUE: Noncontrast CT of the head obtained from the skullbase to the vertex. CLINICAL INFORMATION: trauma COMPARISON: 2021 DLP: 1172.[address] scans at [facility] use at least one of these dose optimization techniques: automated e xposure control; mA and/or kV adjustment per patient size (includes targeted exams where dose is matc hed to clinical indication); or iterative reconstruction. FINDINGS: No evidence of intracranial hemorrhage or mass effect. Ventricular system and basal cisterns are pringle nt. Mild small vessel changes with Mild parenchymal volume loss. No extra-axial fluid collections. No evidence of mass or mass effect. Paranasal sinuses and mastoid air cells are well aerated. .Normal visualized soft tissues. CT/CT head wo con* [id number] IMPRESSION: 1. No evidence of intracranial hemorrhage or mass effect. 2. No acute intracranial findings.
--- NOTE | 2023-11-18 15:22 | ED_ITS ---
HPI - Weakness 2 General: Chief complaint: Weakness Stated complaint: fall Time Seen by Provider: 11/18/23 14:57 History of Present Illness: Patient comes in by EMS with concerns for altered mental status and multiple falls. Patient states that she is fallen multiple times over the last couple of days. States it is from generalized weakness. States she has had a low-grade fever and a cough for the last 2 to 3 days. Denies nausea, vomiting, or diarrhea. States she was diagnosed with a urinary tract infection 3 days ago and started on antibiotics. She thinks she was also diagnosed with pneumonia a week ago. Review of Systems 2 General: Reports: 10 or more systems reviewed and unremarkable except in HPI and below PFSH ED 2 PFSH: Medical History Atrial flutter Tachy-andra syndrome Acute anemia Rotator cuff dysfunction Smoking addiction Insomnia Wheelchair bound Oxygen dependent 2 L at home Small bowel obstruction History of colonic diverticulitis Congestive heart failure Paroxysmal SVT (supraventricular tachycardia) Nicotine dependence, cigarettes, with other nicotine-induced disorders DM type 2 (diabetes mellitus, type 2) Chest pain Atypical chest pain Paroxysmal A-fib Chronic anticoagulation initiated apixaban 08/2020 for paroxysmal atrial fibrillation Paroxysmal atrial fibrillation (~08/2020) NONA (obstructive sleep apnea) Uses CPAP Fibromyalgia Peripheral Vascular Disease Mixed stress and urge urinary incontinence Chronic pain syndrome Due to her weight and other comorbidities I do not think that there is much that pain management would be able to do. They can do localized injections or treatments on specific joints but she would never be a surgical candidate. Bipolar depression Hypertension, benign Overactive bladder RLS (restless legs syndrome) Constipation, chronic COPD (chronic obstructive pulmonary disease) GERD (gastroesophageal reflux disease) CAD (coronary artery disease) Diabetes mellitus type 2 in obese Hyperlipemia Chronic headache Panic disorder [episodic paroxysmal anxiety] Generalized anxiety disorder Major depressive disorder, recurrent, moderate Surgical History H/O: hysterectomy Hx of cholecystectomy S/P appendectomy H/O thyroidectomy Family History Mother , at age 75 Hypertension Father , at age 87 Hypertension Denies family history of Lung disease Stroke Social History (Reviewed 11/18/23 @ 09:36 by DANIEL Banegas Smoking and tobacco/nicotine status: former use of tobacco/nicotine Alcohol intake: never Substance/Drug Use: never Adopted: No Caregiver/support person: No Lives independently: Yes Household members: none Housing: Apartment Marital status: / Number of children: 8 Number of grandchildren: 14 Highest education level completed: Some College, No Degree service: No Current occupational status: disabled Pets and animals: Yes Pets & animals: dog(s) Leisure activites: art, music, reading and other Sexually active: No Do you think of yourself as: Straight/Heterosexual Current gender identity: Female Lilliam/Cheondoism: Yarsani Special lilliam needs: No Agree to transfusion: Yes Female Reproductive History: Para: 8 Spontaneous abortions: No Physical Exam 2 Const: COMMON NORMALS: no acute distress, patient oriented x3, healthy appearing and alert HENMT: COMMON NORMALS: normocephalic and atraumatic HEAD & SCALP: n ormocephalic and atraumatic Eye: COMMON NORMALS: Equal, round and reactive pupils present and EOMs intact bilaterally PUPIL: Yes Equal, round and reactive pupils present Neck/C-Spine: COMMON NORMALS: full ROM and supple Resp: COMMON NORMALS: normal respiratory effort, No retractions and No use of accessory muscles Cardio: COMMON NORMALS: regular rate and regular rhythm RATE: regular rate RHYTHM: regular rhythm GI: COMMON NORMALS: Soft to palpation and non-tender PALPATION: Yes Soft to palpation Extremity: COMMON NORMALS: full ROM OTHER: Chronic venous stasis changes of bilateral lower extremities Neuro: COMMON NORMALS: patient oriented x3 SENSORIUM/ORIENTATION: Yes alert Psych: COMMON NORMALS: mental status grossly normal and cooperative Course 2 Vital Signs: Vital signs: Vital Signs Temperature 97.8 F 11/18/23 14:55 Pulse Rate 89 11/18/23 15:31 Respiratory Rate 18 11/18/23 15:31 Blood Pressure 207/109 11/18/23 19:05 Pulse Oximetry 92 11/18/23 15:31 Oxygen Delivery Me thod Room Air 11/18/23 15:31 MDM - Weakness Medical Decision Making Patient comes in by EMS with concerns for altered mental status and multiple falls. Patient states that she is fallen multiple times over the last couple of days. States it is from generalized weakness. States she has had a low-grade fever and a cough for the last 2 to 3 days. Denies nausea, vomiting, or diarrhea. States she was diagnosed with a urinary tract infection 3 days ago and started on antibiotics. She thinks she was also diagnosed with pneumonia a week ago. On physical exam she is alert and oriented x 3. She is not currently requiring oxygen. Her saturations are 93% on room air. Per EMS she was given 1 mg of Narcan without any change. They were gone before I was able to speak with them. The patient states that she is having pain all over but that this is normal for her given her chronic pain. Will check labs, x-ray, give IV fluids, and reassess. On reassessment the patient is confused. She no longer is oriented to time. She accidentally pulled her IV out and appears confused/encephalopathic. So far her labs do not show a cause. Her white blood cell count was normal at 8.22. Her hemoglobin is slightly low at 10.4. Her sodium, potassium, creatinine are all within normal limits. Her blood glucose was 307. Her urine shows no infection. Her x-ray chest shows possible bibasilar pneumonia. Will check ammonia level, UDS, ethanol, and reassess. On reassessment the patient's ammonia level is 55 which is barely above normal. Her alcohol is negative. Her drug screen is negative. Her CT chest is unremarkable. I do not have a good explanation for her mental status alteration/encephalopathy. I discussed the case with the hospitalist, we will admit for further workup and treatment. Lab Data 11/18/23 15:36 11/18/23 15:36 Radiology Impressions Chest X-Ray 11/18/23 15:20 IMPRESSION: 1. Small amount of scarring, atelectasis, and/or pneumonitis in both lung bases. 2. Mild cardiomegaly. Head CT 11/18/23 15:20 IMPRESSION: 1. No evidence of intracranial hemorrhage or mass effect. 2. No acute intracranial findings. Chest CT 11/18/23 17:53 IMPRESSION: 1. Mild interstitial pulmonary edema and small bilateral pleural effusions. 2. Multinodular left thyroid gland. Consider correlation with thyroid function tests and follow-up outpatient thyroid ultrasound. Laboratory Results WBC 8.22 10^3/uL (3.29-11.43) 11/18/23 15:36 RBC 4.47 10^6/uL (3.85-5.65) 11/18/23 15:36 Hgb 10.40 g/dL (11.27-16.99) L 11/18/23 15:36 Hct 36.1 % (36-47) 11/18/23 15:36 MCV 80.8 fl (85-98) L 11/18/23 15:36 MCH 23.3 pg (27-33) L 11/18/23 15:36 MCHC 28.8 g/dL (30-55) L 11/18/23 15:36 RDW 20.0 % (12.1-15.1) H 11/18/23 15:36 Plt Count 168 10^3/cmm (157-399) 11/18/23 15:36 MPV 11.3 fL (7.4-10.4) H 11/18/23 15:36 Neut % (Auto) 69.3 % 11/18/23 15:36 Lymph % (Auto) 20.8 % 11/18/23 15:36 Dent % (Auto) 7.9 % 11/18/23 15:36 Eos % (Auto) 1.3 % 11/18/23 15:36 Baso % (Auto) 0.5 % 11/18/23 15:36 Neut # (Auto) 5.69 10^3/uL (1.8-7.7) 11/18/23 15:36 Lymph # (Auto) 1.7 10^3/uL (0.8-4.8) 11/18/23 15:36 Dent # (Auto) 0.7 10^3/uL (0.2-0.9) 11/18/23 15:36 Eos # (Auto) 0.1 10^3/uL (0.0-0.8) 11/18/23 15:36 Baso # (Auto) 0.0 10^3/uL (0.0-0.1) 11/18/23 15:36 Nucleated RBC % (auto) 0 % 11/18/23 15:36 Nucleated RBCs # 0.0 /100WBC 11/18/23 15:36 Specimen Type Arterial 11/18/23 15:52 Sample Site Radial, left 11/18/23 15:52 ABG pH 7.45 (7.35-7.45) 11/18/23 15:52 ABG pCO2 45.6 mmHg (35-45) H 11/18/23 15:52 ABG pO2 58.4 mmHg (80.0-100.0) L 11/18/23 15:52 ABG PO2/FiO2 Ratio 278 11/18/23 15:52 ABG HCO3 31.9 mmol/L (22-26) H 11/18/23 15:52 ABG Base Excess 7.1 mmol/L (-2.0-2.0) H 11/18/23 15:52 Robert Test Pos 11/18/23 15:52 Hematocrit 32.0 % (37-47) L 11/18/23 15:52 O2 Delivery Device Room air 11/18/23 15:52 FiO2 21.0 % 11/18/23 15:52 Relationship Assoc ID Cak 11/18/23 15:52 Sodium 136 mmol/L (136-145) 11/18/23 15:36 Potassium 4.0 mmol/L (3.5-5.1) 11/18/23 15:36 Chloride 94 mmol/L (98-107) L 11/18/23 15:36 Carbon Dioxide 29 mmol/L (22-29) 11/18/23 15:36 Anion Gap 17.0 (5-19) 11/18/23 15:36 BUN 8 mg/dL (8-23) 11/18/23 15:36 Creatinine 0.6 mg/dL (0.5-0.9) 11/18/23 15:36 GFR Calculation 100.0 mL/min (90-130) 11/18/23 15:36 Glucose 307 mg/dL (65-115) H 11/18/23 15:36 Calculated Osmolality 292 mOsm/kg (285-295) 11/18/23 15:36 Lactic Acid 2.1 mmol/L (0.5-2.2) 11/18/23 15:36 Lactic Acid (Sepsis) 2.1 mmol/L (0.5-2.2) 11/18/23 18:02 Calcium 9.1 mg/dL (8.5-10.5) 11/18/23 15:36 Magnesium 1.5 mg/dL (1.7-2.3) L 11/18/23 15:36 Total Bilirubin 0.6 mg/dL (0.15-1.2) 11/18/23 15:36 AST 22 U/L (0-32) 11/18/23 15:36 ALT 16 U/L (0-33) 11/18/23 15:36 Alkaline Phosphatase 165 U/L (35-105) H 11/18/23 15:36 Ammonia 55 umol/L (11-51) H 11/18/23 18:02 Total Protein 8.2 g/dL (6.6-8.7) 11/18/23 15:36 Albumin 4.1 g/dL (3.5-5.2) 11/18/23 15:36 Globulin 4.1 g/dL (1.3-4.6) 11/18/23 15:36 Urine Color Yellow (Yellow) 11/18/23 16:25 Urine Appearance Clear (CLEAR) 11/18/23 16:25 Urine pH 7 (5-7) 11/18/23 16:25 Ur Specific Cornelia 1.010 (1.005-1.030) 11/18/23 16:25 Urine Protein Neg (Negative) 11/18/23 16:25 Urine Glucose (UA) 4+ (Normal) H 11/18/23 16:25 Urine Ketones Negative (Negative) 11/18/23 16:25 Urine Blood Trace (Negative) H 11/18/23 16:25 Urine Nitrate Negative (Negative) 11/18/23 16:25 Urine Bilirubin Neg (Negative) 11/18/23 16:25 Urine Urobilinogen Norm mg/dL (Negative) 11/18/23 16:25 Ur Leukocyte Esterase Negative (Negative) 11/18/23 16:25 Urine RBC 0-4 /hpf (0-2) H 11/18/23 16:25 Urine WBC 0-4 /hpf (0-5) H 11/18/23 16:25 Ur Squamous Epith Cells 0-4 /hpf (0-5) H 11/18/23 16:25 Amorphous Sediment Not Reportable 11/18/23 16:25 Urine Bacteria 1+ /hpf (NONE) H 11/18/23 16:25 Urine Opiates Screen Negative ng/mL (Negative) 11/18/23 16:25 Ur Barbiturates Screen Negative ng/mL (Negative) 11/18/23 16:25 Ur Phencyclidine Scrn Negative ng/mL (Negative) 11/18/23 16:25 Ur Amphetamines Screen Negative ng/mL (Negative) 11/18/23 16:25 U Benzodiazepines Scrn Negative ng/mL (Negative) 11/18/23 16:25 Urine Cocaine Screen Negative ng/mL (Negative) 11/18/23 16:25 U Marijuana (THC) Screen Negative ng/mL (Negative) 11/18/23 16:25 Ethyl Alcohol < 10 mg/dL (0-10) 11/18/23 18:02 All radiology interpretation(s) finalized by discharge Discharge Plan Discharge Condition: Stable Prescriptions: No Action melatonin 5 mg capsule 10 mg PO BEDTIME PRN (Reason: insomnia) (DME) miscellaneous medical supply Misc See Rx Instructions .Route Qty: 1 0RF Rx Instructions: use 1-2l at night bupropion HCl 300 mg tablet extended release 24 hr 300 mg PO DAILY Qty: 30 5RF buspirone 15 mg tablet See Rx Instructions .ROUTE .COMPLEX Qty: 90 5RF Dose Instruction: TAKE ONE TABLET BY MOUTH THREE TIMES DAILY FOR ANXIETY Rx Instructions: TAKE ONE TABLET BY MOUTH THREE TIMES DAILY FOR ANXIETY duloxetine 60 mg capsule,delayed release(DR/EC) 120 mg PO DAILY Qty: 60 5RF albuterol sulfate [ProAir HFA] 90 mcg/actuation HFA aerosol inhaler 2 puff INHALATION Q6H PRN (Reason: shortness of breath or wheezing) Qty: 8.5 5RF Eliquis 5 mg tablet 5 mg PO BID 30 Days Qty: 60 5RF Hold Instructions: Resume on 11/21/23. famotidine 20 mg tablet 20 mg PO BID 90 Days Qty: 180 1RF metformin 1,000 mg tablet 1,000 mg PO BID 90 Days Qty: 180 1RF methocarbamol 750 mg tablet 750 mg PO BID PRN (Reason: muscle spasm) 30 Days Qty: 60 5RF metoprolol tartrate 100 mg tablet 100 mg PO Q12H 90 Days Qty: 180 1RF oxybutynin chloride 15 mg tablet extended release 24hr 15 mg PO DAILY 90 Days Qty: 90 1RF risperidone 0.5 mg tablet 0.5 mg PO .qhs Qty: 30 3RF aspirin [Adult Aspirin Regimen] 81 mg tablet,delayed release (DR/EC) 81 mg PO DAILY pramipexole 0.5 mg tablet 0.5 mg PO DAILY Rx Instructions: at bedtime diclofenac potassium 50 mg tablet 50 mg PO BID nitroglycerin 0.4 mg tablet, sublingual 0.4 mg SUBLINGUAL Q5M PRN (Reason: Chest Pain) Qty: 25 2RF miscellaneous medical supply [facility] [place] See Rx Instructions miscellaneous .COMPLEX Qty: 1 0RF Rx Instructions: Motorized wheelchair as directed; azelastine 0.05 % drops 1 drp ophthalmic (eye) BID 7 Days Qty: 6 0RF Rx Instructions: to both eyes hydrocodone-acetaminophen 5-325 mg tablet 1 tab PO DAILY 30 Days Qty: 30 0RF pregabalin 75 mg capsule 75 mg PO BID 30 Days Qty: 60 3RF miscellaneous medical supply [facility] [place] See Rx Instructions miscellaneous .COMPLEX Qty: 1 0RF Rx Instructions: Recliner lift chair as directed; polyethylene glycol 3350 [Miralax] 17 gram/dose powder 17 g PO DAILY PRN (Reason: constipation) 30 Days Qty: 510 2RF (DME) OneTouch Ultra Test Strip See Rx Instructions .ROUTE .COMPLEX Qty: 50 11RF Dose Instruction: TEST BLOOD SUGAR DAILY Rx Instructions: TEST BLOOD SUGAR 4 times a day (DME) Depend Underwear For Women XL [facility] [place] See Rx Instructions .Route Qty: 360 11RF Rx Instructions: As directed, 12 daily (DME) blood-glucose meter [Blood Glucose Monitoring] Kit See Rx Instructions .Route Qty: 1 0RF Rx Instructions: Use to test blood sugar 4 times daily (DME) Dexcom G7 Lead Portfolio Manager [facility] [place] See Rx Instructions .Route Qty: 1 0RF Rx Instructions: As directed miscellaneous medical supply [facility] [place] See Rx Instructions miscellaneous .COMPLEX Qty: 1 0RF Rx Instructions: Wheelchair repair as directed; (DME) pen needle, diabetic [TechLITE Pen Needle] 31 gauge x 5/16 needle See Rx Instructions .ROUTE .COMPLEX Qty: 100 2RF Dose Instruction: TO USE WITH INSULIN 4 TIMES DAILY Rx Instructions: TO USE WITH INSULIN 4 TIMES DAILY docusate sodium 100 mg capsule See Rx Instructions .ROUTE .COMPLEX Qty: 360 1RF Dose Instruction: TAKE TWO CAPSULES BY MOUTH TWICE A DAY FOR 30 DAYS Rx Instructions: TAKE TWO CAPSULES BY MOUTH TWICE A DAY FOR 30 DAYS Belsomra 20 mg tablet 20 mg PO .qhs PRN (Reason: insomnia) 30 Days Qty: 30 3RF Patient Comments: Patient states that it has been discontinued. insulin lispro [Humalog KwikPen Insulin] 100 unit/mL insulin pen See Rx Instructions .ROUTE .COMPLEX Qty: 15 1RF Dose Instruction: INJECT 6 UNITS SUB-Q THREE TIMES A DAY 15 MINUTES BEFORE MEALS Rx Instructions: INJECT 6 UNITS SUB-Q THREE TIMES A DAY 15 MINUTES BEFORE MEALS atorvastatin 40 mg tablet 40 mg PO DAILY Qty: 90 0RF cholecalciferol (vitamin D3) 1,250 mcg (50,000 unit) capsule See Rx Instructions .ROUTE .COMPLEX Qty: 4 3RF Dose Instruction: TAKE ONE CAPSULE BY MOUTH WEEKLY ON MONDAYS FOR 2 MONTHS Rx Instructions: TAKE ONE CAPSULE BY MOUTH WEEKLY ON MONDAYS FOR 2 MONTHS (DME) Dexcom G7 Sensor Device See Rx Instructions .Route Qty: 3 0RF Rx Instructions: As directed cyclobenzaprine 5 mg tablet 10 mg PO QPM 90 Days Qty: 180 0RF insulin glargine [Lantus Solostar U-100 Insulin] 100 unit/mL (3 mL) insulin pen 68 unit SUBCUT DAILY 90 Days Qty: 65 0RF loratadine [Allergy Relief (loratadine)] 10 mg tablet See Rx Instructions .ROUTE .COMPLEX Qty: 90 0RF Dose Instruction: TAKE ONE TABLET BY MOUTH DAILY AT BEDTIME NEEDED FOR ALLERGY SYMPTOMS Rx Instructions: TAKE ONE TABLET BY MOUTH DAILY AT BEDTIME NEEDED FOR ALLERGY SYMPTOMS multivitamin Tablet 1 tab PO DAILY Qty: 0 ascorbic acid (vitamin C) [Vitamin C] 1,000 mg Tablet 1,000 mg PO DAILY Qty: 0 Cardizem LA 360 mg tablet extended release 24 hr 360 mg PO DAILY Qty: 30 5RF Protonix 40 mg tablet,delayed release (DR/EC) 40 mg PO BID 56 Days Qty: 112 3RF sucralfate 1 gram tablet 1 g PO BID 56 Days Qty: 112 0RF furosemide 40 mg tablet 40 mg PO BID PRN (Reason: weight gain or shortness breath) 90 Days Qty: 180 1RF Rx Instructions: AT 8 AM AND NOON potassium chloride 20 mEq tablet,ER particles/crystals 20 meq PO BID PRN (Reason: with lasix only) 90 Days Qty: 180 1RF Referrals: Kristine Rodriguez MD [Primary Care Provider] - Coding Level of Care Code ED Associate Publisher for Urvashi Shaw
[2023-11-18] MEDS: sodium chloride 0.9% 500 ML IV (15:38)
[2023-11-18 15:46] LABS: Basophils % 0.5 %; Eosinophils # 0.1 10^3/uL (0.0-0.8); Eosinophils % 1.3 %; Hematocrit 36.1 % (36-47); Lymphocytes # 1.7 10^3/uL (0.8-4.8); Lymphocytes % 20.8 %; Mean Corpuscular HGB Conc 28.8 g/dL (30-55); Mean Corpuscular Hemoglobin 23.3 pg (27-33); Mean Corpuscular Volume 80.8 fl (85-98); Mean Platelet Volume 11.3 fL (7.4-10.4); Monocytes # 0.7 10^3/uL (0.2-0.9); Monocytes % 7.9 %; Neutrophils # 5.69 10^3/uL (1.8-7.7); Neutrophils % 69.3 %; Nucleated Red Blood Cells % 0 %; Platelet Count 168 10^3/cmm (157-399); Red Blood Count 4.47 10^6/uL (3.85-5.65); White Blood Count 8.22 10^3/uL (3.29-11.43)
[2023-11-18 16:03] LABS: ABG PCO2 45.6 mmHg (35-45); ABG PH Result 7.45 (7.35-7.45); Base Excess ABG 7.1 mmol/L (-2.0-2.0); Blood Gas Allen Test Pos; Blood Gas Operator Identificat CAK; Blood Gas Sample Site Radial, left; Blood Gas Sample Type Arterial; HCO3 ABG 31.9 mmol/L (22-26); Oxygen Device ROOM AIR; PO2 ABG 58.4 mmHg (80.0-100.0); PO2 FiO2 Ratio Arterial Blood 278
[2023-11-18 16:05] LABS: Lactic Sepsis W/Reflex 2.1 mmol/L (0.5-2.2)
[2023-11-18 16:07] LABS: Alanine Aminotransferase 16 U/L (0-33); Albumin Level 4.1 g/dL (3.5-5.2); Alkaline Phosphatase 165 U/L (35-105); Aspartate Amino Transferase 22 U/L (0-32); Blood Urea Nitrogen 8 mg/dL (8-23); Calcium 9.1 mg/dL (8.5-10.5); Carbon Dioxide 29 mmol/L (22-29); Chloride 94 mmol/L (98-107); Creatinine Clr Calc Pharmacy 104.1952; Globulin 4.1 g/dL (1.3-4.6); Glucose 307 mg/dL (65-115); Magnesium 1.5 mg/dL (1.7-2.3); Osmolality Calculated 292 mOsm/kg (285-295); Sodium 136 mmol/L (136-145); Total Bilirubin 0.6 mg/dL (0.15-1.2); Total Protein 8.2 g/dL (6.6-8.7)
[2023-11-18 17:29] LABS: Reflex Lactate Order REFLEX LACTIC ORDERD
[2023-11-18 17:44] LABS: Add Urine Microscopic? YES; Bacteria Urine 1+ /hpf; Bilirubin Urine Neg (Negative); Blood Urine Trace (Negative); Glucose Urine UA 4+ (Normal); Ketones Urine Negative (Negative); Leukocyte Esterase Urine Negative (Negative); Nitrate Urine Negative (Negative); Protein Urine Neg (Negative); RBC Urine 0-4 /hpf (0-2); Squamous Epithelial Cell Urine 0-4 /hpf (0-5); Urine Appearance Clear (CLEAR); Urine Color Yellow (Yellow); Urobilinogen Urine Norm (Negative); WBC Urine 0-4 /hpf (0-5); pH Urine 7 (5-7)
--- NOTE | 2023-11-18 17:53 | CTR_ITS ---
PROCEDURE INFORMATION: Exam: CT Chest With Contrast; Diagnostic Exam date and time: 11/18/2023 6:33 PM Age: 68 years old Clinical indication: Shortness of breath; Prior surgery; Surgery date: 6+ months; Surgery type: Thyroidectomy. Gb. Patient HX: SOB with hypoxia; Additional info: Possible pneumonia TECHNIQUE: Imaging protocol: Diagnostic computed tomography of the chest with contrast. Radiation optimization: All CT scans at this facility use at least one of these dose optimization techniques: automated exposure control; mA and/or kV adjustment per patient size (includes targeted exams where dose is matched to clinical indication); or iterative reconstruction. Contrast material: OMNI 350; Contrast volume: 71 ml; Contrast route: INTRAVENOUS (IV); COMPARISON: CT angio chest PE protcl [id number] 10/14/2020 11:44 AM RADIATION DOSE METRICS: Total DLP (mGy-cm): 993.87 FINDINGS: Thyroid: The right thyroid gland is absent. Multinodular left thyroid gland. Consider correlation with thyroid function tests and follow-up outpatient thyroid ultrasound. Lungs: No focal consolidation. Mild interstitial edema. Pleural spaces: Small bilateral pleural effusions. Evaluation of the density of the effusions is limited by beam hardening artifact. No pneumothorax. Heart: Borderline cardiomegaly. No pericardial effusion. Mediastinal space: Trachea and central airways are grossly patent. No evidence of mediastinal mass or hematoma. Lymph nodes: No evidence of mediastinal or hilar adenopathy. Vasculature: No aneurysmal dilatation of the thoracic aorta. No evidence of dissection. Though this study is not tailored to evaluate for pulmonary thromboembolism, there is no evidence of PE within limitations of respiratory motion. Bones/joints: No evidence of acute fracture or aggressive osseous lesion. Soft tissues: No fluid collection or hematoma in the superficial soft tissues. Other findings: No evidence of acute abnormality in the upper abdomen. CT/CT chest w con* [id number] IMPRESSION: 1. Mild interstitial pulmonary edema and small bilateral pleural effusions. 2. Multinodular left thyroid gland. Consider correlation with thyroid function tests and follow-up outpatient thyroid ultrasound.
[2023-11-18] MEDS: magnesium sulfate premix 2 GM/50 ML PIGGYBACK IV (18:12)
[2023-11-18 18:22] LABS: Ammonia 55 umol/L (11-51); Lactic Acid level (Lactate) 2.1 mmol/L (0.5-2.2)
[2023-11-18] MEDS: iohexol 350 mg/mL 500 mL Btl (per mL) IV (18:35)
[2023-11-18 18:37] LABS: Alcohol Level < 10 mg/dL (0-10)
[2023-11-18 18:52] LABS: Amphetamines Screen Urine Negative (Negative); Barbiturates Screen Urine Negative (Negative); Benzodiazepines Screen Urine Negative (Negative); Cocaine Screen Urine Negative (Negative); Opiate Screen Urine Negative (Negative); PCP Screen Urine Negative (Negative); THC Screen Urine Negative (Negative)
--- NOTE | 2023-11-18 20:02 | P.HP_ITS ---
Providers/Chief Complaint 2 Admitting Physician: Rehana Szymanski MD Primary Care Provider: Kristine Rodriguez MD Chief Complaint: fall History of Present Illness Lin Henao is a 68 year old female presenting today with chief complaint of altered mental status. Workup in the ER unremarkable, potassium, ammonia level slightly high, calcium normal. ABG unremarkable, patient is not showing any sign of stroke, drug screen negative, she is hyperglycemic without signs of DKA, hypomagnesemic.CT chest unremarkable. CT head unremarkable. Review of records revealed that patient was recently discharged from the hospital after management of A-fib RVR patient was on Eliquis aspirin and Plavix EGD showed gastritis without active bleeding ulcer, she was instructed to take only Eliquis, she lives in an apartment with her dog, uses 2 L at baseline Patient was seen at the clinic for possible UTI she was hallucinating, she was confused as well. She has been complaining of lower abdominal pain and constipation. As per the caregiver she has been having visual hallucination she has been seeing her children and . At the time of evaluation NIH 0, patient is awake and alert GCS 15 Nonfocal neuroexam Clinically looks dehydrated Multiple bruises on legs Patient wants to go back to her apartment by tomorrow Stating that she her daughter just returned back home Patient is stating that she uses 2 L of oxygen only at nighttime and during the day she can only stay off oxygen for about 3 to 4 hours She does not prefer to go to SNF She is denying shortness of breath chest pain fever chills endorsing dark- colored stool Hemoglobin stable Review of Systems 2 Const: Denies: fever(s) Eyes: Denies: change in vision ENMT: Denies: throat pain Card: Denies: chest pain Resp: Denies: dyspnea GI: Denies: abdominal pain : Denies: flank pain Medications/Allergies Home Medications Medication Instructions Recorded Confirmed Last Taken Type ascorbic acid (vitamin C) 1,000 mg 1,000 mg PO DAILY ##0 10/09/20 11/18/23 01/04/23 History tablet (Vitamin C) multivitamin 1 tab PO DAILY ##0 10/09/20 11/18/23 10/28/23 08:00 History melatonin 5 mg capsule 10 mg PO BEDTIME PRN insomnia 10/27/20 11/18/23 12/15/21 History miscellaneous medical supply #1 ea 12/06/21 07/19/24 Unknown Rx polyethylene glycol 3350 17 17 g PO DAILY PRN constipation 30 03/22/22 11/18/23 10/27/23 21:00 Rx gram/dose oral powder (Miralax) days #510 grams nitroglycerin 0.4 mg sublingual 0.4 mg sublingual Q5M PRN Chest 04/15/22 11/18/23 Unknown Rx tablet Pain #25 tabs blood sugar diagnostic (OneTouch #50 strips 01/28/23 11/18/23 Unknown Rx Ultra Test strips) diaper,brief,adult,disposable #360 ea 01/31/23 11/18/23 Unknown Rx (Depend Underwear For Women XL) blood-glucose meter (Blood Glucose #1 ea 02/08/23 11/18/23 Unknown Rx Monitoring kit) blood-glucose meter,continuous #1 ea 02/08/23 11/18/23 Unknown Rx (Dexcom G7 [employer]) miscellaneous medical supply See Rx Instructions miscellaneous 02/21/23 11/18/23 10/27/23 Rx .COMPLEX #1 ea pen needle, diabetic 31 gauge x #100 ea 04/18/23 11/18/23 Unknown Rx 5/16 (TechLITE Pen Needle) insulin lispro 100 unit/mL See Rx Instructions .Route 06/15/23 11/18/23 10/28/23 Rx subcutaneous pen (Humalog KwikPen .COMPLEX #15 mL (U-100) Insulin) bupropion HCl 300 mg 24 hr tablet, 300 mg PO DAILY #30 tabs 07/05/23 11/18/23 10/28/23 08:00 Rx extended release buspirone 15 mg tablet See Rx Instructions .Route 07/05/23 11/18/23 10/28/23 08:00 Rx .COMPLEX #90 tabs albuterol sulfate 90 mcg/actuation 2 puff inhalation Q6H PRN 07/18/23 11/18/23 10/28/23 08:00 Rx aerosol inhaler (ProAir HFA) shortness of breath or wheezing #8.5 grams apixaban 5 mg tablet (Eliquis) 5 mg PO BID 30 days #60 tabs 07/18/23 11/18/23 10/28/23 08:00 Rx famotidine 20 mg tablet 20 mg PO BID 90 days #180 tabs 07/18/23 11/18/23 10/28/23 08:00 Rx methocarbamol 750 mg tablet 750 mg PO BID PRN muscle spasm 30 07/18/23 11/18/23 10/27/23 21:00 Rx days #60 tabs oxybutynin chloride 15 mg 15 mg PO DAILY 90 days #90 tabs 07/18/23 11/18/23 10/28/23 08:00 Rx tablet,extended release 24 hr atorvastatin 40 mg tablet 40 mg PO DAILY #90 tabs 08/10/23 11/18/23 10/28/23 08:00 Rx blood-glucose sensor (Dexcom G7 #3 ea 08/19/23 11/18/23 Unknown Rx Sensor device) cyclobenzaprine 5 mg tablet 10 mg (2 x 5 mg) PO QPM 90 days 08/29/23 11/18/23 10/28/23 08:00 Rx #180 tabs miscellaneous medical supply See Rx Instructions miscellaneous 09/08/23 11/18/23 10/27/23 Rx .COMPLEX #1 ea insulin glargine 100 unit/mL (3 68 unit (0.68 mL) SUBCUT DAILY 90 09/13/23 11/18/23 10/28/23 08:00 Rx mL) subcutaneous pen ( #65 mL Solostar U-100 Insulin) loratadine 10 mg tablet (Allergy See Rx Instructions .Route 09/20/23 11/18/23 10/28/23 Rx Relief (loratadine)) .COMPLEX #90 tabs risperidone 0.5 mg tablet 0.5 mg PO .qhs #30 tabs 10/13/23 11/18/23 Unknown Rx hydrocodone 5 mg-acetaminophen 325 1 tab PO DAILY pain, severe 30 10/17/23 11/18/23 Unknown Rx mg tablet days #30 tabs miscellaneous medical supply See Rx Instructions miscellaneous 10/17/23 11/18/23 10/27/23 Rx .COMPLEX #1 ea pregabalin 75 mg capsule 75 mg PO BID 30 days #60 caps 10/17/23 11/18/23 10/28/23 08:00 Rx diltiazem HCl 360 mg 360 mg PO DAILY #30 tabs 10/31/23 11/18/23 Unknown Rx tablet,extended release 24 hr (Cardizem LA) furosemide 40 mg tablet 40 mg PO BID PRN weight gain or 10/31/23 11/18/23 10/28/23 08:00 Rx shortness breath 90 days #180 tabs pantoprazole 40 mg tablet,delayed 40 mg PO BID 8 weeks #112 tabs 10/31/23 11/18/23 Unknown Rx release (Protonix) potassium chloride 20 mEq 20 meq PO BID PRN with lasix only 10/31/23 11/18/23 10/28/23 08:00 Rx tablet,extended release(part/cryst) 90 days #180 tabs sucralfate 1 gram tablet 1 g PO BID 8 weeks #112 tabs 10/31/23 11/18/23 Unknown Rx aspirin 81 mg tablet,delayed 81 mg PO DAILY 11/18/23 11/18/23 Unknown History release (Adult Aspirin Regimen) diclofenac potassium 50 mg tablet 50 mg PO BID 11/18/23 11/18/23 Unknown History metoprolol tartrate 100 mg tablet 150 mg PO Q12H 11/18/23 11/18/23 Unknown History pramipexole 0.5 mg tablet 0.5 mg PO DAILY 11/18/23 11/18/23 Unknown History Allergies Allergy/AdvReac Type Severity Reaction Status Date / Time propoxyphene [From Darvon] Allergy Unknown Unknown Verified 11/18/23 09:06 fluoxetine [From Prozac] AdvReac Severe ADR-Halluci Verified 11/18/23 09:06 nating PFS Acute 2 PFSH: Medical History Atrial flutter Tachy-andra syndrome Acute anemia Rotator cuff dysfunction Smoking addiction Insomnia Wheelchair bound Oxygen dependent 2 L at home Small bowel obstruction History of colonic diverticulitis Congestive heart failure Paroxysmal SVT (supraventricular tachycardia) Nicotine dependence, cigarettes, with other nicotine-induced disorders DM type 2 (diabetes mellitus, type 2) Chest pain Atypical chest pain Paroxysmal A-fib Chronic anticoagulation initiated apixaban 08/2020 for paroxysmal atrial fibrillation Paroxysmal atrial fibrillation (~08/2020) NONA (obstructive sleep apnea) Uses CPAP Fibromyalgia Peripheral Vascular Disease Mixed stress and urge urinary incontinence Chronic pain syndrome Due to her weight and other comorbidities I do not think that there is much that pain management would be able to do. They can do localized injections or treatments on specific joints but she would never be a surgical candidate. Bipolar depression Hypertension, benign Overactive bladder RLS (restless legs syndrome) Constipation, chronic COPD (chronic obstructive pulmonary disease) GERD (gastroesophageal reflux disease) CAD (coronary artery disease) Diabetes mellitus type 2 in obese Hyperlipemia Chronic headache Panic disorder [episodic paroxysmal anxiety] Generalized anxiety disorder Major depressive disorder, recurrent, moderate Surgical History H/O: hysterectomy Hx of cholecystectomy S/P appendectomy H/O thyroidectomy Family History Mother , at age 75 Hypertension Father , at age 87 Hypertension Denies family history of Lung disease Stroke Social History Smoking and tobacco/nicotine status: former use of tobacco/nicotine Alcohol intake: never Substance/Drug Use: never Adopted: No Caregiver/support person: No Lives independently: Yes Household members: none Housing: Apartment Marital status: / Number of children: 8 Number of grandchildren: 14 Highest education level completed: Some College, No Degree service: No Current occupational status: disabled Pets and animals: Yes Pets & animals: dog(s) Leisure activites: art, music, reading and other Sexually active: No Do you think of yourself as: Straight/Heterosexual Current gender identity: Female Lilliam/Latter Day: Shinto Special lilliam needs: No Agree to transfusion: Yes Female Reproductive History: Para: 8 Spontaneous abortions: No Vitals/I&O/Wt Last Vital Signs Temp 97.8 F 11/18/23 14:55 Pulse 89 11/18/23 15:31 Resp 18 11/18/23 15:31 BP 207/109 11/18/23 19:05 Pulse Ox 92 11/18/23 15:31 O2 Del Method Room Air 11/18/23 15:31 11/18/23 11/18/23 11/18/23 06:59 14:59 22:59 Intake Total 500 / 500 Balance 500 / 500 Weight last 48 hrs Weight 156.489 kg Physical Exam 2 Narrative: Awake alert Morbidly obese Clinically dehydrated Multiple bruises all lower extremity Pleasant cooperative Currently on 2 L Hemodynamic stable Nonfocal neuroexam AOx3 GCS 15 Abdomen soft Intertrigo S1, S2 bradycardia without RVR Data 11/18/23 15:36 11/18/23 15:36 A&P Assessment and plan (1) Polypharmacy: (2) Encephalopathy acute: Plan Metabolic encephalopathy Related to polypharmacy No sign of stroke Ammonia slightly high ABG unremarkable TSH requested Free T4 normal Unremarkable UA, CT head CT chest unremarkable Drug screen negative No sign of serotonin syndrome I do believe this is combination of polypharmacy and sleep apnea, will discontinue antipsychotics and sedatives at the time of discharge Recent history of GI bleed EGD showed gastritis status post 1 unit PRBC hemoglobin stable continue Mor Patient lives in an apartment with her dog Does not want to go to SNF After physical therapy tomorrow she should be able to go back to her apartment Clinically dry I would not give her Lasix for now A-fib without RVR Continue AV ann blocking agent metoprolol and [facility] also has history of hemorrhoids Chronic hypoxia uses 2 L at baseline Most likely patient will need outpatient sleep study Full code Cardiac consistent carb diet DVT prophylaxis: Continue Eliqu Attestations 2 Medical Necessity Statement*: Possible discharge in next 48 hours Diagnoses Polypharmacy Z79.899 Encephalopathy acute G93.40
[2023-11-18 20:16] LABS: Free T4 Free Thyroxine 1.64 ng/dL (0.82-1.77); Thyroid Stimulating Hormone 0.84 uIU/mL (0.27-4.20)
--- NOTE | 2023-11-18 20:31 | PC.NURSE ---
this nurse assumed pt care at 1930.
[2023-11-18] MEDS: metoprolol tartrate 50 mg Tablet 100 MG PO (21:10)
[2023-11-18 21:58] LABS: Thyroid Stimulating Hormone 0.93 uIU/mL (0.27-4.20)
[2023-11-19] VITALS (8 sets, daily range): BP systolic 129–158; BP diastolic 71–88; PULSE 86–93; RESP 16–18; TEMP 36.6–36.9; O2SAT 90–99
[2023-11-19 03:21] LABS: Basophils % 0.2 %; Eosinophils # 0.2 10^3/uL (0.0-0.8); Eosinophils % 1.8 %; Hematocrit 32.8 % (36-47); Lymphocytes # 1.9 10^3/uL (0.8-4.8); Lymphocytes % 23.5 %; Mean Corpuscular HGB Conc 28.4 g/dL (30-55); Mean Corpuscular Hemoglobin 23.4 pg (27-33); Mean Corpuscular Volume 82.4 fl (85-98); Mean Platelet Volume 12.3 fL (7.4-10.4); Monocytes # 0.7 10^3/uL (0.2-0.9); Monocytes % 8.4 %; Neutrophils % 65.9 %; Nucleated Red Blood Cells % 0 %; Platelet Count 172 10^3/cmm (157-399); Red Blood Count 3.98 10^6/uL (3.85-5.65); White Blood Count 8.21 10^3/uL (3.29-11.43)
[2023-11-19 03:38] LABS: Anion Gap 14.7 (5-19); Blood Urea Nitrogen 7 mg/dL (8-23); Calcium 8.7 mg/dL (8.5-10.5); Carbon Dioxide 29 mmol/L (22-29); Chloride 98 mmol/L (98-107); Creatinine Clr Calc Pharmacy 92.9142; Glucose 228 mg/dL (65-115); Magnesium 1.6 mg/dL (1.7-2.3); Osmolality Calculated 291 mOsm/kg (285-295); Potassium 3.7 mmol/L (3.5-5.1); Sodium 138 mmol/L (136-145)
[2023-11-19] MEDS: bumetanide 1 mg Tablet 2 MG PO (06:10)
[2023-11-19] MEDS: insulin lispro 100 unit/1 mL SUBCUT ×3 (08:30→17:32)
[2023-11-19] MEDS: pantoprazole DR 40 mg Tablet PO ×2 (08:31→17:32)
[2023-11-19] MEDS: amoxicillin-clav 875-125 mg Tablet 1 TAB PO ×2 (08:31→17:32)
[2023-11-19] MEDS: apixaban 5 mg Tablet PO ×2 (08:32→17:32)
[2023-11-19] MEDS: sucralfate 1 gm Tablet PO ×2 (08:32→17:32)
[2023-11-19] MEDS: dilTIAZem ER (24HR) 180 mg Capsule 360 MG PO (08:32)
[2023-11-19] MEDS: metoprolol tartrate 50 mg Tablet 100 MG PO ×2 (08:32→20:11)
[2023-11-19] MEDS: insulin glargine 100 units/1 mL 40 UNIT SUBCUT (08:32)
--- NOTE | 2023-11-19 11:38 | P.PN_ITS ---
Subjective 2 Subjective: Remains confused this morning. Says that she thinks she is at school. Spoke with family who says that she has been more confused for the last couple of days and has been having some hallucinations. She did receive first dose of antibiotic this morning. She is able to tell me her name, Birthdate, but thinks that year is 20[birth year]. She had difficulty telling me where she lived, but was able to come up with an answer after a few minutes of thought. She expressed concerned about her dog at home. Medications: Reviewed: Yes Vitals/I&O/Wt Last Vital Signs Temp 98.1 F 11/19/23 07:00 Pulse 86 11/19/23 08:12 Resp 16 11/19/23 08:12 BP 158/84 11/19/23 07:00 Pulse Ox 92 11/19/23 08:12 O2 Del Method Room Air 11/19/23 08:12 O2 Flow Rate 2 11/18/23 20:00 11/18/23 11/19/23 11/19/23 22:59 06:59 14:59 Intake Total 550 / 550 150 / 700 Output Total 300 / 300 200 / 500 Balance 250 / 250 -50 / 200 Weight last 48 hrs Weight 287 lb 11.2 oz Weight 288 lb 1 oz Weight 345 lb Physical Exam 2 Narrative: General: Cooperative patient in no apparent distress. Well developed. HEENT: Normocephalic, Atraumatic. External ears normal. Nasal passages patent without drainage. MMM. Heart: RRR. Resp: Mild rales at the lung bases. Otherwise clear to auscultation. Abd: Soft, non-tender. Non-distended. Extremities: No edema. Skin: No rash or lesions on exposed areas. Neuro: No focal motor or sensory loss. Requires assist with transfers, moderate assist to transfer from commode to bed. Data 11/19/23 02:50 11/19/23 02:50 A&P Assessment and plan (1) Polypharmacy: (2) Encephalopathy acute: (3) GERD without esophagitis: (4) Diabetes type 2, uncontrolled: Qualifiers: Glycemic state: with hyperglycemia Qualified Code(s): E11.65 - Type 2 diabetes mellitus with hyperglycemia (5) NONA (obstructive sleep apnea): (6) Chronic respiratory failure with hypoxia: (7) Pleural effusion: Plan 68 y.o. F admitted for encephalopathy. Consider metabolic vs. Infectious vs. polypharmacy. No sign of stroke or ICH based on CT. Ammonia slightly high to 55. ABG unremarkable Thyroid panel normal. CT head with multinodular thyroid with normal thyroid panel. CT chest showed mild pulm edema and small B pleural effusions. Drug screen negative No sign of serotonin syndrome UA equivocal, UCx is pending. Has history of recurrent UTI's and ESBL. Started on Augmentin this morning given her last culture results. Will see if she improves with Abx. Can have PCP re-evaluate home medications. Hold sedating and antipsychotic medications for now. Recent history of GI bleed EGD showed gastritis status post 1 unit PRBC hemoglobin stable. Continue Eliquis for history of A-fib/fluttier. Declines to go to SNF at this time. Hold Lasix for now, but may need if she begins to have clinical signs of volume overload. BP and HR currently stable. Chronic hypoxia uses 2 L oxygen all times. Sat at 99% on 3L, which we will titrate her oxygen back to baseline oxygen supplementation. Most likely patient will need outpatient sleep study. Code Status: Full IVF: none DVT PPx: Eliquis GI PPx: Protonix ABx: Augmentin Diet: Cardiac, CC Discharge plan: Home when appropriate. Attestations 2 Medical Necessity Statement*: Will need continued monitoring for encephalopathy workup, physical therapy, discharge planning, oxygen titration. Coding Level of Care Code Acute Code for Chg Fwd Moderate MDM includes number and complexity of problems actively addressed during encounter, amount and/or complexity of data reviewed/ordered and described risk of complication, morbidity or mortality of management as documented Diagnoses Polypharmacy Z79.899 Encephalopathy acute G93.40 GERD without esophagitis K21.9 Uncontrolled type 2 diabetes mellitus with hyperglycemia E11.65 Glycemic state: with hyperglycemia NONA (obstructive sleep apnea) G47.33 Chronic respiratory failure with hypoxia J96.11 Pleural effusion J90
[2023-11-20] VITALS (7 sets, daily range): BP systolic 133–142; BP diastolic 67–97; PULSE 88–89; RESP 16–20; TEMP 36.8–37.1; O2SAT 96–98
[2023-11-20] MEDS: ipratropium-albuterol 3 mL Neb INHALATION (01:00)
--- NOTE | 2023-11-20 02:39 | P.PN_ITS ---
Subjective 2 Subjective: Seen this morning. No acute events overnight. Feels slightly better. Still confused and hallucinating. Vitals/I&O/Wt Last Vital Signs Temp 98.4 F 11/19/23 23:00 Pulse 88 11/20/23 01:00 Resp 18 11/20/23 01:00 BP 135/75 11/19/23 23:00 Pulse Ox 98 11/20/23 01:00 O2 Del Method Nasal Cannula 11/20/23 01:00 O2 Flow Rate 2 11/20/23 01:00 11/19/23 11/19/23 11/20/23 14:59 22:59 06:59 Intake Total 240 / 240 Output Total 500 / 500 Balance -260 / -260 Weight last 48 hrs Weight 130.499 kg Weight 130.663 kg Weight 156.489 kg Physical Exam 2 Narrative: General: Cooperative patient in no apparent distress. Well developed. HEENT: Normocephalic, Atraumatic. External ears normal. Heart: RRR. Normal S1-S2 Resp: Mild rales at the lung bases. Otherwise clear to auscultation. Abd: Soft, non-tender. Non-distended. Extremities: No edema. Skin: No rash or lesions on exposed areas. Neuro: No focal motor or sensory loss. Requires assist with transfers, moderate assist to transfer from commode to bed. Data 11/19/23 02:50 11/19/23 02:50 A&P Assessment and plan (1) Polypharmacy: (2) Encephalopathy acute: (3) GERD without esophagitis: (4) Diabetes type 2, uncontrolled: Qualifiers: Glycemic state: with hyperglycemia Qualified Code(s): E11.65 - Type 2 diabetes mellitus with hyperglycemia (5) NONA (obstructive sleep apnea): (6) Chronic respiratory failure with hypoxia: (7) Pleural effusion: Plan 68 y.o. F admitted for encephalopathy. Consider metabolic vs. Infectious vs. polypharmacy. No sign of stroke or ICH based on CT. Ammonia slightly high to 55. ABG unremarkable Thyroid panel normal. CT head with multinodular thyroid with normal thyroid panel. CT chest showed mild pulm edema and small B pleural effusions. Drug screen negative No sign of serotonin syndrome UA equivocal, UCx is pending. Has history of recurrent UTI's and ESBL. Started on Augmentin this morning given her last culture results. Will see if she improves with Abx. Can have PCP re-evaluate home medications. Hold sedating and antipsychotic medications for now. Recent history of GI bleed EGD showed gastritis status post 1 unit PRBC hemoglobin stable. Continue Eliquis for history of A-fib/fluttier. Declines to go to SNF at this time. Hold Lasix for now, but may need if she begins to have clinical signs of volume overload. BP and HR currently stable. Chronic hypoxia uses 2 L oxygen all times. Sat at 99% on 3L, which we will titrate her oxygen back to baseline oxygen supplementation. Most likely patient will need outpatient sleep study. I will order MRI brain for a.m. Code Status: Full IVF: none DVT PPx: Eliquis GI PPx: Protonix ABx: Augmentin Diet: Cardiac, CC Discharge plan: Home when appropriate. Attestations 2 Medical Necessity Statement*: Will need continued monitoring for encephalopathy workup, physical therapy, discharge planning, oxygen titration. Diagnoses Polypharmacy Z79.899 Encephalopathy acute G93.40 GERD without esophagitis K21.9 Uncontrolled type 2 diabetes mellitus with hyperglycemia E11.65 Glycemic state: with hyperglycemia NONA (obstructive sleep apnea) G47.33 Chronic respiratory failure with hypoxia J96.11 Pleural effusion J90
[2023-11-20 04:06] LABS: Basophils % 0.4 %; Eosinophils # 0.2 10^3/uL (0.0-0.8); Eosinophils % 2.3 %; Lymphocytes # 1.8 10^3/uL (0.8-4.8); Lymphocytes % 24.4 %; Mean Corpuscular HGB Conc 28.8 g/dL (30-55); Mean Corpuscular Hemoglobin 23.6 pg (27-33); Mean Corpuscular Volume 82.1 fl (85-98); Mean Platelet Volume 12.1 fL (7.4-10.4); Monocytes # 0.7 10^3/uL (0.2-0.9); Monocytes % 9.9 %; Neutrophils # 4.54 10^3/uL (1.8-7.7); Neutrophils % 62.7 %; Nucleated Red Blood Cells % 0 %; Platelet Count 174 10^3/cmm (157-399); Red Blood Count 4.02 10^6/uL (3.85-5.65); White Blood Count 7.25 10^3/uL (3.29-11.43)
[2023-11-20 04:27] LABS: Alanine Aminotransferase 15 U/L (0-33); Albumin Level 3.6 g/dL (3.5-5.2); Alkaline Phosphatase 143 U/L (35-105); Aspartate Amino Transferase 26 U/L (0-32); Blood Urea Nitrogen 6 mg/dL (8-23); C Reactive Protein 4.8 mg/L (0.0-4.9); Calcium 8.8 mg/dL (8.5-10.5); Carbon Dioxide 29 mmol/L (22-29); Chloride 99 mmol/L (98-107); Creatinine Clr Calc Pharmacy 92.8426; Globulin 3.4 g/dL (1.3-4.6); Glucose 224 mg/dL (65-115); Magnesium 1.8 mg/dL (1.7-2.3); Osmolality Calculated 295 mOsm/kg (285-295); Sodium 140 mmol/L (136-145); Total Bilirubin 0.5 mg/dL (0.15-1.2)
[2023-11-20 04:28] LABS: Anion Gap 15.8 (5-19); Potassium 3.8 mmol/L (3.5-5.1)
[2023-11-20 04:38] LABS: Procalcitonin 0.06 ng/mL (0-0.5); Vitamin B12 570 pg/mL (232-1245)
[2023-11-20 04:40] LABS: Folate Level 13.2 ng/mL (4.8-37.3)
[2023-11-20] MEDS: bumetanide 1 mg Tablet 2 MG PO (06:15)
[2023-11-20] MEDS: amoxicillin-clav 875-125 mg Tablet 1 TAB PO (08:19)
[2023-11-20] MEDS: pantoprazole DR 40 mg Tablet PO ×2 (08:19→18:43)
[2023-11-20] MEDS: metoprolol tartrate 50 mg Tablet 100 MG PO ×2 (08:20→21:45)
[2023-11-20] MEDS: apixaban 5 mg Tablet PO ×2 (08:21→18:43)
[2023-11-20] MEDS: sucralfate 1 gm Tablet PO ×2 (08:21→18:43)
[2023-11-20] MEDS: dilTIAZem ER (24HR) 180 mg Capsule 360 MG PO (08:21)
[2023-11-20] MEDS: insulin lispro 100 unit/1 mL SUBCUT ×3 (08:27→18:43)
[2023-11-20] MEDS: insulin glargine 100 units/1 mL 40 UNIT SUBCUT (08:28)
--- NOTE | 2023-11-20 13:25 | PM.DCS ---
Discharge Providers Date of Admission: 11/19/23 19:41 Date of Discharge: November 20, 2023 Attending Provider at Admission: Rehana Szymanski MD Attending Provider at Discharge: Angeline Hendricks MD Primary Care Provider: Kristine Rodriguez MD Diagnoses at Discharge Discharge Diagnosis (1) Polypharmacy: Status: Inactive (2) Encephalopathy acute: Status: Inactive (3) GERD without esophagitis: Status: Acute (4) Diabetes type 2, uncontrolled: Status: Acute Qualifiers: Glycemic state: with hyperglycemia Qualified Code(s): E11.65 - Type 2 diabetes mellitus with hyperglycemia (5) NONA (obstructive sleep apnea): Status: Acute (6) Chronic respiratory failure with hypoxia: Status: Acute (7) Pleural effusion: Status: Acute Reason for Visit Reason for Visit: fall Brief History: Lin Henao is a 68 year old female presenting today with chief complaint of altered mental status. Workup in the ER unremarkable, potassium, ammonia level slightly high, calcium normal. ABG unremarkable, patient is not showing any sign of stroke, drug screen negative, she is hyperglycemic without signs of DKA, hypomagnesemic.CT chest unremarkable. CT head unremarkable. Review of records revealed that patient was recently discharged from the hospital after management of A-fib RVR patient was on Eliquis aspirin and Plavix EGD showed gastritis without active bleeding ulcer, she was instructed to take only Eliquis, she lives in an apartment with her dog, uses 2 L at baseline Patient was seen at the clinic for possible UTI she was hallucinating, she was confused as well. She has been complaining of lower abdominal pain and constipation. As per the caregiver she has been having visual hallucination she has been seeing her children and . At the time of evaluation NIH 0, patient is awake and alert GCS 15 Nonfocal neuroexam Clinically looks dehydrated Multiple bruises on legs Patient wants to go back to her apartment by tomorrow Stating that she her daughter just returned back home Patient is stating that she uses 2 L of oxygen only at nighttime and during the day she can only stay off oxygen for about 3 to 4 hours She does not prefer to go to SNF She is denying shortness of breath chest pain fever chills endorsing dark-colored stool Hemoglobin stable Hospital Course Hospital Course Presented to the hospital with hallucinations and confusion which was most likely secondary to polypharmacy and possible UTI. No stroke or ICH based on CT. ammonia slightly elevated. Urinalysis equivocal. Patient does have a history of recurrent UTIs and ESBL. She was placed on Augmentin initially which i have switched to nitrofurantoin at discharge. UCx positive for gram negative rods. Pt declined to go to SNF. At baseline she is on 4L NC hoever at this time she is on 3L and doing well. After medication adjustments pt feels better and no longer having hallucinations. Pt will need ambulance ride to go home and feels well enough to go home. I told her we have adjusted her home medications. Physical Exam Narrative: General: Cooperative patient in no apparent distress. Well developed. HEENT: Normocephalic, Atraumatic. External ears normal. Nasal passages patent without drainage. MMM. Heart: RRR. Resp: clear to auscultation b/l Abd: Soft, non-tender. Non-distended. Extremities: No edema. Skin: No rash or lesions on exposed areas. Neuro: No focal motor or sensory loss. Requires assist with transfers, moderate assist to transfer from commode to bed. Discharge Data Studies Completed and Pending Completed Studies During Hospitalization Category Date Time Status CT chest w con* [id number] Stat Cat Scan 11/18/23 17:[address] head wo con* [id number] Stat Cat Scan 11/18/23 15:20 Completed XR chest 1V portable [id number] Stat Exams 11/18/23 15:20 Completed Pending at discharge Category Date Time Status Basic Metabolic Panel AM LABS Lab 11/21/23 04:00 Ordered Complete Blood Count w/Auto AM LABS Lab 11/21/23 04:00 Ordered Radiology Impressions Chest X-Ray 11/18/23 15:20 IMPRESSION: 1. Small amount of scarring, atelectasis, and/or pneumonitis in both lung bases. 2. Mild cardiomegaly. Head CT 11/18/23 15:20 IMPRESSION: 1. No evidence of intracranial hemorrhage or mass effect. 2. No acute intracranial findings. Chest CT 11/18/23 17:53 IMPRESSION: 1. Mild interstitial pulmonary edema and small bilateral pleural effusions. 2. Multinodular left thyroid gland. Consider correlation with thyroid function tests and follow-up outpatient thyroid ultrasound. Laboratory Results WBC 7.25 10^3/uL (3.29-11.43) 11/20/23 03:10 RBC 4.02 10^6/uL (3.85-5.65) 11/20/23 03:10 Hgb 9.50 g/dL (11.27-16.99) L 11/20/23 03:10 Hct 33.0 % (36-47) L 11/20/23 03:10 MCV 82.1 fl (85-98) L 11/20/23 03:10 MCH 23.6 pg (27-33) L 11/20/23 03:10 MCHC 28.8 g/dL (30-55) L 11/20/23 03:10 RDW 20.0 % (12.1-15.1) H 11/20/23 03:10 Plt Count 174 10^3/cmm (157-399) 11/20/23 03:10 MPV 12.1 fL (7.4-10.4) H 11/20/23 03:10 Neut % (Auto) 62.7 % 11/20/23 03:10 Lymph % (Auto) 24.4 % 11/20/23 03:10 [place] % (Auto) 9.9 % 11/20/23 03:10 Eos % (Auto) 2.3 % 11/20/23 03:10 Baso % (Auto) 0.4 % 11/20/23 03:10 Neut # (Auto) 4.54 10^3/uL (1.8-7.7) 11/20/23 03:10 Lymph # (Auto) 1.8 10^3/uL (0.8-4.8) 11/20/23 03:10 [place] # (Auto) 0.7 10^3/uL (0.2-0.9) 11/20/23 03:10 Eos # (Auto) 0.2 10^3/uL (0.0-0.8) 11/20/23 03:10 Baso # (Auto) 0.0 10^3/uL (0.0-0.1) 11/20/23 03:10 Nucleated RBC % (auto) 0 % 11/20/23 03:10 Nucleated RBCs # 0.0 /100WBC 11/20/23 03:10 Specimen Type Arterial 11/18/23 15:52 Sample Site Radial, left 11/18/23 15:52 ABG pH 7.45 (7.35-7.45) 11/18/23 15:52 ABG pCO2 45.6 mmHg (35-45) H 11/18/23 15:52 ABG pO2 58.4 mmHg (80.0-100.0) L 11/18/23 15:52 ABG PO2/FiO2 Ratio 278 11/18/23 15:52 ABG HCO3 31.9 mmol/L (22-26) H 11/18/23 15:52 ABG Base Excess 7.1 mmol/L (-2.0-2.0) H 11/18/23 15:52 Robert Test Pos 11/18/23 15:52 Hematocrit 32.0 % (37-47) L 11/18/23 15:52 O2 Delivery Device Room air 11/18/23 15:52 FiO2 21.0 % 11/18/23 15:52 Enrollment Coordinator ID Cak 11/18/23 15:52 Sodium 140 mmol/L (136-145) 11/20/23 03:10 Potassium 3.8 mmol/L (3.5-5.1) 11/20/23 03:10 Chloride 99 mmol/L (98-107) 11/20/23 03:10 Carbon Dioxide 29 mmol/L (22-29) 11/20/23 03:10 Anion Gap 15.8 (5-19) 11/20/23 03:10 BUN 6 mg/dL (8-23) L 11/20/23 03:10 Creatinine 0.6 mg/dL (0.5-0.9) 11/20/23 03:10 GFR Calculation 100.0 mL/min (90-130) 11/20/23 03:10 Glucose 224 mg/dL (65-115) H 11/20/23 03:10 Calculated Osmolality 295 mOsm/kg (285-295) 11/20/23 03:10 Lactic Acid 2.1 mmol/L (0.5-2.2) 11/18/23 15:36 Lactic Acid (Sepsis) 2.1 mmol/L (0.5-2.2) 11/18/23 18:02 Calcium 8.8 mg/dL (8.5-10.5) 11/20/23 03:10 Magnesium 1.8 mg/dL (1.7-2.3) 11/20/23 03:10 Total Bilirubin 0.5 mg/dL (0.15-1.2) 11/20/23 03:10 AST 26 U/L (0-32) 11/20/23 03:10 ALT 15 U/L (0-33) 11/20/23 03:10 Alkaline Phosphatase 143 U/L (35-105) H 11/20/23 03:10 Ammonia 55 umol/L (11-51) H 11/18/23 18:02 C-Reactive Protein 4.8 mg/L (0.0-4.9) 11/20/23 03:10 Total Protein 7.0 g/dL (6.6-8.7) 11/20/23 03:10 Albumin 3.6 g/dL (3.5-5.2) 11/20/23 03:10 Globulin 3.4 g/dL (1.3-4.6) 11/20/23 03:10 Vitamin B12 570 pg/mL (232-1245) 11/20/23 03:10 Folate 13.2 ng/mL (4.8-37.3) 11/20/23 03:10 Procalcitonin 0.06 ng/mL (0-0.5) 11/20/23 03:10 TSH 0.93 uIU/mL (0.27-4.20) 11/18/23 21:13 Free T4 1.64 ng/dL (0.82-1.77) 11/18/23 15:26 Urine Color Yellow (Yellow) 11/18/23 16:25 Urine Appearance Clear (CLEAR) 11/18/23 16:25 Urine pH 7 (5-7) 11/18/23 16:25 Ur Specific [place] 1.010 (1.005-1.030) 11/18/23 16:25 Urine Protein Neg (Negative) 11/18/23 16:25 Urine Glucose (UA) 4+ (Normal) H 11/18/23 16:25 Urine Ketones Negative (Negative) 11/18/23 16:25 Urine Blood Trace (Negative) H 11/18/23 16:25 Urine Nitrate Negative (Negative) 11/18/23 16:25 Urine Bilirubin Neg (Negative) 11/18/23 16:25 Urine Urobilinogen Norm mg/dL (Negative) 11/18/23 16:25 Ur Leukocyte Esterase Negative (Negative) 11/18/23 16:25 Urine RBC 0-4 /hpf (0-2) H 11/18/23 16:25 Urine WBC 0-4 /hpf (0-5) H 11/18/23 16:25 Ur Squamous Epith Cells 0-4 /hpf (0-5) H 11/18/23 16:25 Amorphous Sediment Not Reportable 11/18/23 16:25 Urine Bacteria 1+ /hpf (NONE) H 11/18/23 16:25 Urine Opiates Screen Negative ng/mL (Negative) 11/18/23 16:25 Ur Barbiturates Screen Negative ng/mL (Negative) 11/18/23 16:25 Ur Phencyclidine Scrn Negative ng/mL (Negative) 11/18/23 16:25 Ur Amphetamines Screen Negative ng/mL (Negative) 11/18/23 16:25 U Benzodiazepines Scrn Negative ng/mL (Negative) 11/18/23 16:25 Urine Cocaine Screen Negative ng/mL (Negative) 11/18/23 16:25 U Marijuana (THC) Screen Negative ng/mL (Negative) 11/18/23 16:25 Ethyl Alcohol < 10 mg/dL (0-10) 11/18/23 18:02 Vitals Last Vital Signs Temp 98.7 F 11/20/23 11:00 Pulse 89 11/20/23 11:00 Resp 18 11/20/23 11:00 BP 133/73 11/20/23 11:00 Pulse Ox 97 11/20/23 11:00 O2 Del Method Nasal Cannula 11/20/23 11:00 O2 Flow Rate 2 11/20/23 09:54 Discharge Plan Discharge Patient Disposition: Home Condition: Stable Prescriptions: New amoxicillin-pot clavulanate 875-125 mg Tablet 1 tab PO BID Qty: 10 0RF Continued (DME) miscellaneous medical supply Misc See Rx Instructions .Route Qty: 1 0RF Rx Instructions: use 1-2l at night albuterol sulfate [ProAir HFA] 90 mcg/actuation HFA aerosol inhaler 2 puff INHALATION Q6H PRN (Reason: shortness of breath or wheezing) Qty: 8.5 5RF Eliquis 5 mg tablet 5 mg PO BID 30 Days Qty: 60 5RF Hold Instructions: Resume on 11/21/23. famotidine 20 mg tablet 20 mg PO BID 90 Days Qty: 180 1RF oxybutynin chloride 15 mg tablet extended release 24hr 15 mg PO DAILY 90 Days Qty: 90 1RF aspirin [Adult Aspirin Regimen] 81 mg tablet,delayed release (DR/EC) 81 mg PO DAILY nitroglycerin 0.4 mg tablet, sublingual 0.4 mg SUBLINGUAL Q5M PRN (Reason: Chest Pain) Qty: 25 2RF miscellaneous medical supply Misc See Rx Instructions miscellaneous .COMPLEX Qty: 1 0RF Rx Instructions: Motorized wheelchair as directed; hydrocodone-acetaminophen 5-325 mg tablet 1 tab PO DAILY 30 Days Qty: 30 0RF pregabalin 75 mg capsule 75 mg PO BID 30 Days Qty: 60 3RF miscellaneous medical supply Misc See Rx Instructions miscellaneous .COMPLEX Qty: 1 0RF Rx Instructions: Recliner lift chair as directed; polyethylene glycol 3350 [Miralax] 17 gram/dose powder 17 g PO DAILY PRN (Reason: constipation) 30 Days Qty: 510 2RF (DME) OneTouch Ultra Test Strip See Rx Instructions .ROUTE .COMPLEX Qty: 50 11RF Dose Instruction: TEST BLOOD SUGAR DAILY Rx Instructions: TEST BLOOD SUGAR 4 times a day (DME) Depend Underwear For Women XL Misc See Rx Instructions .Route Qty: 360 11RF Rx Instructions: As directed, 12 daily (DME) blood-glucose meter [Blood Glucose Monitoring] Kit See Rx Instructions .Route Qty: 1 0RF Rx Instructions: Use to test blood sugar 4 times daily (DME) Dexcom G7 Planning Feeder Misc See Rx Instructions .Route Qty: 1 0RF Rx Instructions: As directed miscellaneous medical supply Misc See Rx Instructions miscellaneous .COMPLEX Qty: 1 0RF Rx Instructions: Wheelchair repair as directed; (DME) pen needle, diabetic [TechLITE Pen Needle] 31 gauge x 5/16 needle See Rx Instructions .ROUTE .COMPLEX Qty: 100 2RF Dose Instruction: TO USE WITH INSULIN 4 TIMES DAILY Rx Instructions: TO USE WITH INSULIN 4 TIMES DAILY insulin lispro [Humalog KwikPen Insulin] 100 unit/mL insulin pen See Rx Instructions .ROUTE .COMPLEX Qty: 15 1RF Dose Instruction: INJECT 6 UNITS SUB-Q THREE TIMES A DAY 15 MINUTES BEFORE MEALS Rx Instructions: INJECT 6 UNITS SUB-Q THREE TIMES A DAY 15 MINUTES BEFORE MEALS atorvastatin 40 mg tablet 40 mg PO DAILY Qty: 90 0RF (DME) Dexcom G7 Sensor Device See Rx Instructions .Route Qty: 3 0RF Rx Instructions: As directed cyclobenzaprine 5 mg tablet 10 mg PO QPM 90 Days Qty: 180 0RF insulin glargine [Lantus Solostar U-100 Insulin] 100 unit/mL (3 mL) insulin pen 68 unit SUBCUT DAILY 90 Days Qty: 65 0RF multivitamin Tablet 1 tab PO DAILY Qty: 0 ascorbic acid (vitamin C) [Vitamin C] 1,000 mg Tablet 1,000 mg PO DAILY Qty: 0 diltiazem HCl [Cardizem LA] 360 mg tablet extended release 24 hr 360 mg PO DAILY Qty: 30 5RF pantoprazole [Protonix] 40 mg tablet,delayed release (DR/EC) 40 mg PO BID 56 Days Qty: 112 3RF sucralfate 1 gram tablet 1 g PO BID 56 Days Qty: 112 0RF furosemide 40 mg tablet 40 mg PO BID PRN (Reason: weight gain or shortness breath) 90 Days Qty: 180 1RF Rx Instructions: AT 8 AM AND NOON potassium chloride 20 mEq tablet,ER particles/crystals 20 meq PO BID PRN (Reason: with lasix only) 90 Days Qty: 180 1RF metoprolol tartrate 100 mg tablet 150 mg PO Q12H Held risperidone 0.5 mg tablet 0.5 mg PO .qhs Qty: 30 3RF Hold Instructions: see pcp Discontinued melatonin 5 mg capsule 10 mg PO BEDTIME PRN (Reason: insomnia) bupropion HCl 300 mg tablet extended release 24 hr 300 mg PO DAILY Qty: 30 5RF buspirone 15 mg tablet See Rx Instructions .ROUTE .COMPLEX Qty: 90 5RF Dose Instruction: TAKE ONE TABLET BY MOUTH THREE TIMES DAILY FOR ANXIETY Rx Instructions: TAKE ONE TABLET BY MOUTH THREE TIMES DAILY FOR ANXIETY methocarbamol 750 mg tablet 750 mg PO BID PRN (Reason: muscle spasm) 30 Days Qty: 60 5RF pramipexole 0.5 mg tablet 0.5 mg PO DAILY Rx Instructions: at bedtime diclofenac potassium 50 mg tablet 50 mg PO BID loratadine [Allergy Relief (loratadine)] 10 mg tablet See Rx Instructions .ROUTE .COMPLEX Qty: 90 0RF Dose Instruction: TAKE ONE TABLET BY MOUTH DAILY AT BEDTIME NEEDED FOR ALLERGY SYMPTOMS Rx Instructions: TAKE ONE TABLET BY MOUTH DAILY AT BEDTIME NEEDED FOR ALLERGY SYMPTOMS Discharge Orders: Discharge Order (Routine); Ordered 11/20/23 Ordered By: Angeline Hendricks Other Ambulatory Orders: Sleep Oximetry Study (Routine) Timeframe: 1 Week Facility: [facility] - Location: [facility] Ordered By: Rehana Szymanski Referrals: Kristine Rodriguez MD [Primary Care Provider] - 4-7 days Discharge Diet: Cardiac and Diabetic Patient Instructions: Opioid Safety Discharge Attestations Time Spent in Discharge Care*: greater than 30 min Status at Discharge: Cognitive status at discharge: cognitively intact, Behavioral status at discharge: cooperative, Coding Level of Care Code 10993 Total time (in minutes) for Discharge: 35 Diagnoses Polypharmacy Z79.899 Encephalopathy acute G93.40 GERD without esophagitis K21.9 Uncontrolled type 2 diabetes mellitus with hyperglycemia E11.65 Glycemic state: with hyperglycemia NONA (obstructive sleep apnea) G47.33 Chronic respiratory failure with hypoxia J96.11 Pleural effusion J90
--- NOTE | 2023-11-20 13:57 | P.PN_ITS ---
Subjective 2 Subjective: seen this am urine culture pending pt starting to feel better urine postive for gram neg rods, pt has hx of esbl no longer having hallucinations Vitals/I&O/Wt Last Vital Signs Temp 98.7 F 11/20/23 11:00 Pulse 89 11/20/23 11:00 Resp 18 11/20/23 11:00 BP 133/73 11/20/23 11:00 Pulse Ox 97 11/20/23 11:00 O2 Del Method Nasal Cannula 11/20/23 11:00 O2 Flow Rate 2 11/20/23 09:54 11/19/23 11/20/23 11/20/23 22:59 06:59 14:59 Intake Total 240 / 240 0 / 240 600 / 600 Output Total 500 / 500 0 / 500 500 / 500 Balance -260 / -260 0 / -260 100 / 100 Weight last 48 hrs Weight 129.455 kg Weight 130.499 kg Weight 130.663 kg Weight 156.489 kg Physical Exam 2 Narrative: General: Cooperative patient in no apparent distress. Well developed. HEENT: Normocephalic, Atraumatic. External ears normal. Nasal passages patent without drainage. MMM. Heart: RRR. Resp: clear to auscultation b/l Abd: Soft, non-tender. Non-distended. Extremities: No edema. Skin: No rash or lesions on exposed areas. Neuro: No focal motor or sensory loss. Requires assist with transfers, moderate assist to transfer from commode to bed. Data 11/20/23 03:10 11/20/23 03:10 A&P Assessment and plan (1) Polypharmacy: (2) Encephalopathy acute: (3) GERD without esophagitis: (4) Diabetes type 2, uncontrolled: Qualifiers: Glycemic state: with hyperglycemia Qualified Code(s): E11.65 - Type 2 diabetes mellitus with hyperglycemia (5) NONA (obstructive sleep apnea): (6) Chronic respiratory failure with hypoxia: (7) Pleural effusion: Plan 68 y.o. F admitted for encephalopathy. Consider metabolic vs. Infectious vs. polypharmacy. No sign of stroke or ICH based on CT. Ammonia slightly high to 55. ABG unremarkable Thyroid panel normal. CT head with multinodular thyroid with normal thyroid panel. CT chest showed mild pulm edema and small B pleural effusions. Drug screen negative No sign of serotonin syndrome UA equivocal, UCx is pending. Has history of recurrent UTI's and ESBL. Started on Augmentin this morning given her last culture results. Will see if she improves with Abx. Can have PCP re-evaluate home medications. Hold sedating and antipsychotic medications for now. Recent history of GI bleed EGD showed gastritis status post 1 unit PRBC hemoglobin stable. Continue Eliquis for history of A-fib/fluttier. Declines to go to SNF at this time. Hold Lasix for now, but may need if she begins to have clinical signs of volume overload. BP and HR currently stable. Chronic hypoxia uses 2 L oxygen all times. Sat at 99% on 3L, which we will titrate her oxygen back to baseline oxygen supplementation. Most likely patient will need outpatient sleep study. urine culture positive for gram neg rods, will results in am has hx of esbl uti will continue to monitor pt at this time. continue on zosyn Code Status: Full IVF: none DVT PPx: Eliquis GI PPx: Protonix ABx: Augmentin Diet: Cardiac, CC Discharge plan: Home when appropriate. Attestations 2 Medical Necessity Statement*: dc after urine culture results in next 24-48 hours Diagnoses Polypharmacy Z79.899 Encephalopathy acute G93.40 GERD without esophagitis K21.9 Uncontrolled type 2 diabetes mellitus with hyperglycemia E11.65 Glycemic state: with hyperglycemia NONA (obstructive sleep apnea) G47.33 Chronic respiratory failure with hypoxia J96.11 Pleural effusion J90
[2023-11-20] MEDS: piperacillin-tazobactam 3.375 GM in sodium chloride 0.9% (plus) 50 ML IV ×2 (14:32→21:45)
[2023-11-21] VITALS (7 sets, daily range): BP systolic 130–155; BP diastolic 77–89; PULSE 73–92; RESP 18–19; TEMP 36.6–37.2; O2SAT 93–100
--- NOTE | 2023-11-21 00:08 | PC.NURSE ---
blood glucose 137
[2023-11-21 04:35] LABS: Basophils % 0.3 %; Eosinophils # 0.1 10^3/uL (0.0-0.8); Eosinophils % 1.7 %; Lymphocytes # 1.4 10^3/uL (0.8-4.8); Lymphocytes % 20.8 %; Mean Corpuscular HGB Conc 28.2 g/dL (30-55); Mean Corpuscular Hemoglobin 23.3 pg (27-33); Mean Corpuscular Volume 82.5 fl (85-98); Mean Platelet Volume 12.4 fL (7.4-10.4); Monocytes # 0.5 10^3/uL (0.2-0.9); Monocytes % 8.1 %; Neutrophils % 68.8 %; Nucleated Red Blood Cells % 0 %; Platelet Count 176 10^3/cmm (157-399); Red Cell Distribution Width 19.9 % (12.1-15.1); White Blood Count 6.54 10^3/uL (3.29-11.43)
[2023-11-21 04:53] LABS: Anion Gap 13.7 (5-19); Blood Urea Nitrogen 7 mg/dL (8-23); Calcium 9.1 mg/dL (8.5-10.5); Carbon Dioxide 32 mmol/L (22-29); Chloride 99 mmol/L (98-107); Creatinine Clr Calc Pharmacy 92.3866; Glomerular Filtration Rate 83.7 mL/min (90-130); Glucose 268 mg/dL (65-115); Osmolality Calculated 299 mOsm/kg (285-295); Potassium 3.7 mmol/L (3.5-5.1); Sodium 141 mmol/L (136-145)
[2023-11-21] MEDS: bumetanide 1 mg Tablet 2 MG PO (06:11)
[2023-11-21] MEDS: piperacillin-tazobactam 3.375 GM in sodium chloride 0.9% (plus) 50 ML IV ×3 (06:11→23:04)
[2023-11-21 07:05] LABS: Glucose Point of Care 308 mg/dL (70-110)
[2023-11-21 07:32] LABS: Glucose Point of Care 280 mg/dL (70-110)
[2023-11-21 07:32] LABS: Glucose Point of Care 262 mg/dL (70-110)
[2023-11-21 07:32] LABS: Glucose Point of Care 247 mg/dL (70-110)
[2023-11-21 07:33] LABS: Glucose Point of Care 270 mg/dL (70-110)
[2023-11-21 07:40] LABS: Glucose Point of Care 243 mg/dL (70-110)
[2023-11-21 07:40] LABS: Glucose Point of Care 304 mg/dL (70-110)
[2023-11-21] MEDS: insulin glargine 100 units/1 mL 40 UNIT SUBCUT (09:07)
[2023-11-21] MEDS: insulin lispro 100 unit/1 mL SUBCUT ×3 (09:07→17:12)
[2023-11-21] MEDS: pantoprazole DR 40 mg Tablet PO ×2 (09:08→17:11)
[2023-11-21] MEDS: metoprolol tartrate 50 mg Tablet 100 MG PO ×2 (09:08→20:09)
[2023-11-21] MEDS: sucralfate 1 gm Tablet PO ×2 (09:08→17:11)
[2023-11-21] MEDS: apixaban 5 mg Tablet PO ×2 (09:08→17:11)
[2023-11-21] MEDS: dilTIAZem ER (24HR) 180 mg Capsule 360 MG PO (09:08)
--- NOTE | 2023-11-21 10:21 | PC.SOCIAL ---
IMM Update pg 2 of IMM updated and reviewed w/ patient. Copy provided and copy dated, initialed and placed in chart.
--- NOTE | 2023-11-21 15:38 | P.PN_ITS ---
Subjective 2 Subjective: Patient states she is feeling much better compared to admission. She is afebrile and hemodynamically stable. Fingersticks are uncontrolled. Medications: Reviewed: Yes Vitals/I&O/Wt Last Vital Signs Temp 98.6 F 11/21/23 12:00 Pulse 91 11/21/23 12:00 Resp 18 11/21/23 12:00 BP 131/77 11/21/23 12:00 Pulse Ox 96 11/21/23 12:00 O2 Del Method Nasal Cannula 11/21/23 12:00 O2 Flow Rate 2 11/21/23 09:16 11/21/23 11/21/23 11/21/23 06:59 14:59 22:59 Intake Total 170 / 1420 650 / 650 Output Total 600 / 1800 450 / 450 Balance -430 / -380 200 / 200 Weight last 48 hrs Weight 125.69 kg Weight 129.455 kg Physical Exam 2 Narrative: General: No acute distress, AO x3 HEENT: PERRLA, pupils bilaterally equal and reactive, pallors not present Chest: Normal vesicular breath sounds, no added sounds, equal good air entry bilaterally CVS: S1-S2 regular, no murmurs, no tachycardia, no gallops, no rubs Abdomen: Soft, nontender, no organomegaly, bowel sounds present Neuro: No focal deficits, no facial deformity, AO x3, power 5/5 in all limbs Data 11/21/23 03:45 11/21/23 03:45 A&P Assessment and plan (1) Polypharmacy: (2) Encephalopathy acute: (3) GERD without esophagitis: (4) Diabetes type 2, uncontrolled: Qualifiers: Glycemic state: with hyperglycemia Qualified Code(s): E11.65 - Type 2 diabetes mellitus with hyperglycemia (5) NONA (obstructive sleep apnea): (6) Chronic respiratory failure with hypoxia: (7) Pleural effusion: Plan 68 y.o. F admitted for encephalopathy. Consider metabolic vs. Infectious vs. polypharmacy. No sign of stroke or ICH based on CT. Ammonia slightly high to 55. ABG unremarkable Thyroid panel normal. CT head with multinodular thyroid with normal thyroid panel. CT chest showed mild pulm edema and small B pleural effusions. Drug screen negative No sign of serotonin syndrome UA equivocal, UCx is pending. Has history of recurrent UTI's and ESBL. Started on Augmentin this morning given her last culture results. Will see if she improves with Abx. Can have PCP re-evaluate home medications. Hold sedating and antipsychotic medications for now. Recent history of GI bleed EGD showed gastritis status post 1 unit PRBC hemoglobin stable. Continue Eliquis for history of A-fib/fluttier. Declines to go to SNF at this time. Hold Lasix for now, but may need if she begins to have clinical signs of volume overload. BP and HR currently stable. Chronic hypoxia uses 2 L oxygen all times. Sat at 99% on 3L, which we will titrate her oxygen back to baseline oxygen supplementation. Most likely patient will need outpatient sleep study. urine culture positive for gram neg rods, will results in am has hx of esbl uti will continue to monitor pt at this time. continue on zosyn Code Status: Full IVF: none DVT PPx: Eliquis GI PPx: Protonix ABx: Augmentin Diet: Cardiac, CC Discharge plan: Home when appropriate. November 21, 2023. Urine culture identified as ESBL E. coli. Continue piperacillin/tazobactam. Will need IV ertapenem 1 g daily at discharge. We are trying to coordinate this for outpatient infusion at [facility]. Hopefully will be able to discharge tomorrow once this is set up as outpatient. Adjust insulin. Increase glargine to 45 units at nighttime. Change medium dose sliding scale to high-dose insulin sliding scale. Check blood cultures as not previously checked during admission course. Attestations 2 Medical Necessity Statement*: Need for IV antibiotics given resistant E. coli, transition to IV ertapenem, outpatient antibiotic infusion arrangements being made. Coding Level of Care Code Acute Code for Chg Fwd Moderate MDM includes number and complexity of problems actively addressed during encounter, amount and/or complexity of data reviewed/ordered and described risk of complication, morbidity or mortality of management as documented Diagnoses Polypharmacy Z79.899 Encephalopathy acute G93.40 GERD without esophagitis K21.9 Uncontrolled type 2 diabetes mellitus with hyperglycemia E11.65 Glycemic state: with hyperglycemia NONA (obstructive sleep apnea) G47.33 Chronic respiratory failure with hypoxia J96.11 Pleural effusion J90
[2023-11-21 22:14] LABS: Glucose Point of Care 249 mg/dL (70-110)
[2023-11-21 22:14] LABS: Glucose Point of Care 260 mg/dL (70-110)
[2023-11-21 22:14] LABS: Glucose Point of Care 292 mg/dL (70-110)
[2023-11-22] VITALS (7 sets, daily range): BP systolic 105–140; BP diastolic 66–87; PULSE 65–93; RESP 16–18; TEMP 36.7–36.9; O2SAT 90–97
[2023-11-22] MEDS: bumetanide 1 mg Tablet 2 MG PO (06:14)
[2023-11-22] MEDS: piperacillin-tazobactam 3.375 GM in sodium chloride 0.9% (plus) 50 ML IV (06:15)
[2023-11-22 06:34] LABS: Glucose Point of Care 259 mg/dL (70-110)
[2023-11-22] MEDS: insulin lispro 100 unit/1 mL SUBCUT ×2 (09:07→11:42)
[2023-11-22] MEDS: metoprolol tartrate 50 mg Tablet 100 MG PO (09:08)
[2023-11-22] MEDS: pantoprazole DR 40 mg Tablet PO (09:08)
[2023-11-22] MEDS: apixaban 5 mg Tablet PO (09:08)
[2023-11-22] MEDS: dilTIAZem ER (24HR) 180 mg Capsule 360 MG PO (09:08)
[2023-11-22] MEDS: sucralfate 1 gm Tablet PO (09:08)
[2023-11-22] MEDS: insulin glargine 100 units/1 mL 45 UNIT SUBCUT (09:19)
[2023-11-22] MEDS: ertapenem 1,000 MG in sodium chloride 0.9% (plus) 100 ML 200 MG IV (11:13)
[2023-11-22 11:31] LABS: Glucose Point of Care 290 mg/dL (70-110)
--- NOTE | 2023-11-22 15:10 | PC.NURSE ---
This nurse called patients friend, Agustín, to inform him that pt is leaving our facility now so that he can meet her at her appt with her wheelchair per her request.
--- NOTE | 2023-11-22 15:49 | PM.DCS ---
Discharge Providers Date of Admission: 11/19/23 19:41 Date of Discharge: November 22, 2023 Attending Provider at Admission: Rehana Szymanski MD Attending Provider at Discharge: Char Diane MD Primary Care Provider: Kristine Rodriguez MD Diagnoses at Discharge Discharge Diagnosis (1) Polypharmacy: Status: Inactive (2) Encephalopathy acute: Status: Inactive (3) GERD without esophagitis: Status: Acute (4) Diabetes type 2, uncontrolled: Status: Acute Qualifiers: Glycemic state: with hyperglycemia Qualified Code(s): E11.65 - Type 2 diabetes mellitus with hyperglycemia (5) NONA (obstructive sleep apnea): Status: Acute (6) Chronic respiratory failure with hypoxia: Status: Acute (7) Pleural effusion: Status: Acute Reason for Visit Reason for Visit: fall Hospital Course Hospital Course Ms. Henao is a 68-year-old lady that presented to the hospital with hallucinations and confusion which was most likely multifactorial secondary to polypharmacy and UTI. No stroke or ICH based on CT. UCx positive for gram negative rods, identified as ESBL E. coli. Patient received treatment with IV piperacillin/tazobactam during course of her hospital stay. This was transitioned to IV ertapenem 1 g IV daily at the time of discharge. Patient will receive 4 remaining days of treatment at [facility] as an outpatient which is closer to her home. Her mental status improved with treatment of UTI in the hospital. Her lower abdominal pain was resolved at the time of discharge. TSH was within normal range. Incidental note made of multinodular goiter on CT of the chest. Please follow-up with primary care physician regarding the same. She has chronic bilateral lower extremity edema, Lasix was briefly held at the time of admission as patient appeared to be clinically dehydrated. This has been resumed at discharge. Chest x-ray made a note of pneumonitis, however no clinical correlate for the same. Less likely pneumonia. Physical Exam Narrative: General: No acute distress, AO x3 HEENT: PERRLA, pupils bilaterally equal and reactive, pallors not present Chest: Normal vesicular breath sounds, no added sounds, equal good air entry bilaterally CVS: S1-S2 regular, no murmurs, no tachycardia, no gallops, no rubs Abdomen: Soft, nontender, no organomegaly, bowel sounds present Neuro: No focal deficits, no facial deformity, AO x3, power 5/5 in all limbs Extremities: Bilateral chronic lower extremity chronic edema with changes of stasis dermatitis. Discharge Data Studies Completed and Pending Completed Studies During Hospitalization Category Date Time Status CT chest w con* [id number] Stat Cat Scan 11/18/23 17:[address] head wo con* [id number] Stat Cat Scan 11/18/23 15:20 Completed XR chest 1V portable [id number] Stat Exams 11/18/23 15:20 Completed Pending at discharge Category Date Time Status Blood Culture Routine Lab 11/21/23 15:42 Results Radiology Impressions Chest X-Ray 11/18/23 15:20 IMPRESSION: 1. Small amount of scarring, atelectasis, and/or pneumonitis in both lung bases. 2. Mild cardiomegaly. Head CT 11/18/23 15:20 IMPRESSION: 1. No evidence of intracranial hemorrhage or mass effect. 2. No acute intracranial findings. Chest CT 11/18/23 17:53 IMPRESSION: 1. Mild interstitial pulmonary edema and small bilateral pleural effusions. 2. Multinodular left thyroid gland. Consider correlation with thyroid function tests and follow-up outpatient thyroid ultrasound. Laboratory Results WBC 6.54 10^3/uL (3.29-11.43) 11/21/23 03:45 RBC 4.00 10^6/uL (3.85-5.65) 11/21/23 03:45 Hgb 9.30 g/dL (11.27-16.99) L 11/21/23 03:45 Hct 33.0 % (36-47) L 11/21/23 03:45 MCV 82.5 fl (85-98) L 11/21/23 03:45 MCH 23.3 pg (27-33) L 11/21/23 03:45 MCHC 28.2 g/dL (30-55) L 11/21/23 03:45 RDW 19.9 % (12.1-15.1) H 11/21/23 03:45 Plt Count 176 10^3/cmm (157-399) 11/21/23 03:45 MPV 12.4 fL (7.4-10.4) H 11/21/23 03:45 Neut % (Auto) 68.8 % 11/21/23 03:45 Lymph % (Auto) 20.8 % 11/21/23 03:45 [place] % (Auto) 8.1 % 11/21/23 03:45 Eos % (Auto) 1.7 % 11/21/23 03:45 Baso % (Auto) 0.3 % 11/21/23 03:45 Neut # (Auto) 4.50 10^3/uL (1.8-7.7) 11/21/23 03:45 Lymph # (Auto) 1.4 10^3/uL (0.8-4.8) 11/21/23 03:45 [place] # (Auto) 0.5 10^3/uL (0.2-0.9) 11/21/23 03:45 Eos # (Auto) 0.1 10^3/uL (0.0-0.8) 11/21/23 03:45 Baso # (Auto) 0.0 10^3/uL (0.0-0.1) 11/21/23 03:45 Nucleated RBC % (auto) 0 % 11/21/23 03:45 Nucleated RBCs # 0.0 /100WBC 11/21/23 03:45 Specimen Type Arterial 11/18/23 15:52 Sample Site Radial, left 11/18/23 15:52 ABG pH 7.45 (7.35-7.45) 11/18/23 15:52 ABG pCO2 45.6 mmHg (35-45) H 11/18/23 15:52 ABG pO2 58.4 mmHg (80.0-100.0) L 11/18/23 15:52 ABG PO2/FiO2 Ratio 278 11/18/23 15:52 ABG HCO3 31.9 mmol/L (22-26) H 11/18/23 15:52 ABG Base Excess 7.1 mmol/L (-2.0-2.0) H 11/18/23 15:52 Robert Test Pos 11/18/23 15:52 Hematocrit 32.0 % (37-47) L 11/18/23 15:52 O2 Delivery Device Room air 11/18/23 15:52 FiO2 21.0 % 11/18/23 15:52 Employment Office Clerk ID Cak 11/18/23 15:52 Sodium 141 mmol/L (136-145) 11/21/23 03:45 Potassium 3.7 mmol/L (3.5-5.1) 11/21/23 03:45 Chloride 99 mmol/L (98-107) 11/21/23 03:45 Carbon Dioxide 32 mmol/L (22-29) H 11/21/23 03:45 Anion Gap 13.7 (5-19) 11/21/23 03:45 BUN 7 mg/dL (8-23) L 11/21/23 03:45 Creatinine 0.7 mg/dL (0.5-0.9) 11/21/23 03:45 GFR Calculation 83.7 mL/min (90-130) L 11/21/23 03:45 Glucose 268 mg/dL (65-115) H 11/21/23 03:45 POC Glucose 290 mg/dL (70-110) H 11/22/23 11:27 Calculated Osmolality 299 mOsm/kg (285-295) H 11/21/23 03:45 Lactic Acid 2.1 mmol/L (0.5-2.2) 11/18/23 15:36 Lactic Acid (Sepsis) 2.1 mmol/L (0.5-2.2) 11/18/23 18:02 Calcium 9.1 mg/dL (8.5-10.5) 11/21/23 03:45 Magnesium 1.8 mg/dL (1.7-2.3) 11/20/23 03:10 Total Bilirubin 0.5 mg/dL (0.15-1.2) 11/20/23 03:10 AST 26 U/L (0-32) 11/20/23 03:10 ALT 15 U/L (0-33) 11/20/23 03:10 Alkaline Phosphatase 143 U/L (35-105) H 11/20/23 03:10 Ammonia 55 umol/L (11-51) H 11/18/23 18:02 C-Reactive Protein 4.8 mg/L (0.0-4.9) 11/20/23 03:10 Total Protein 7.0 g/dL (6.6-8.7) 11/20/23 03:10 Albumin 3.6 g/dL (3.5-5.2) 11/20/23 03:10 Globulin 3.4 g/dL (1.3-4.6) 11/20/23 03:10 Vitamin B12 570 pg/mL (232-1245) 11/20/23 03:10 Folate 13.2 ng/mL (4.8-37.3) 11/20/23 03:10 Procalcitonin 0.06 ng/mL (0-0.5) 11/20/23 03:10 TSH 0.93 uIU/mL (0.27-4.20) 11/18/23 21:13 Free T4 1.64 ng/dL (0.82-1.77) 11/18/23 15:26 Urine Color Yellow (Yellow) 11/18/23 16:25 Urine Appearance Clear (CLEAR) 11/18/23 16:25 Urine pH 7 (5-7) 11/18/23 16:25 Ur Specific [place] 1.010 (1.005-1.030) 11/18/23 16:25 Urine Protein Neg (Negative) 11/18/23 16:25 Urine Glucose (UA) 4+ (Normal) H 11/18/23 16:25 Urine Ketones Negative (Negative) 11/18/23 16:25 Urine Blood Trace (Negative) H 11/18/23 16:25 Urine Nitrate Negative (Negative) 11/18/23 16:25 Urine Bilirubin Neg (Negative) 11/18/23 16:25 Urine Urobilinogen Norm mg/dL (Negative) 11/18/23 16:25 Ur Leukocyte Esterase Negative (Negative) 11/18/23 16:25 Urine RBC 0-4 /hpf (0-2) H 11/18/23 16:25 Urine WBC 0-4 /hpf (0-5) H 11/18/23 16:25 Ur Squamous Epith Cells 0-4 /hpf (0-5) H 11/18/23 16:25 Amorphous Sediment Not Reportable 11/18/23 16:25 Urine Bacteria 1+ /hpf (NONE) H 11/18/23 16:25 Urine Opiates Screen Negative ng/mL (Negative) 11/18/23 16:25 Ur Barbiturates Screen Negative ng/mL (Negative) 11/18/23 16:25 Ur Phencyclidine Scrn Negative ng/mL (Negative) 11/18/23 16:25 Ur Amphetamines Screen Negative ng/mL (Negative) 11/18/23 16:25 U Benzodiazepines Scrn Negative ng/mL (Negative) 11/18/23 16:25 Urine Cocaine Screen Negative ng/mL (Negative) 11/18/23 16:25 U Marijuana (THC) Screen Negative ng/mL (Negative) 11/18/23 16:25 Ethyl Alcohol < 10 mg/dL (0-10) 11/18/23 18:02 Vitals Last Vital Signs Temp 98.3 F 11/22/23 11:25 Pulse 90 11/22/23 11:25 Resp 16 11/22/23 11:25 BP 105/71 11/22/23 11:25 Pulse Ox 97 11/22/23 11:25 O2 Del Method Nasal Cannula 11/22/23 11:25 O2 Flow Rate 2 11/22/23 11:25 Discharge Plan Discharge Patient Disposition: Home Condition: Stable Prescriptions: New bupropion HCl 300 mg tablet extended release 24 hr 300 mg PO DAILY 30 Days Qty: 30 0RF Continued (DME) miscellaneous medical supply Misc See Rx Instructions .Route Qty: 1 0RF Rx Instructions: use 1-2l at night albuterol sulfate [ProAir HFA] 90 mcg/actuation HFA aerosol inhaler 2 puff INHALATION Q6H PRN (Reason: shortness of breath or wheezing) Qty: 8.5 5RF Eliquis 5 mg tablet 5 mg PO BID 30 Days Qty: 60 5RF Hold Instructions: Resume on 11/21/23. famotidine 20 mg tablet 20 mg PO BID 90 Days Qty: 180 1RF oxybutynin chloride 15 mg tablet extended release 24hr 15 mg PO DAILY 90 Days Qty: 90 1RF risperidone 0.5 mg tablet 0.5 mg PO .qhs Qty: 30 3RF Hold Instructions: see pcp aspirin [Adult Aspirin Regimen] 81 mg tablet,delayed release (DR/EC) 81 mg PO DAILY nitroglycerin 0.4 mg tablet, sublingual 0.4 mg SUBLINGUAL Q5M PRN (Reason: Chest Pain) Qty: 25 2RF miscellaneous medical supply Misc See Rx Instructions miscellaneous .COMPLEX Qty: 1 0RF Rx Instructions: Motorized wheelchair as directed; hydrocodone-acetaminophen 5-325 mg tablet 1 tab PO DAILY 30 Days Qty: 30 0RF pregabalin 75 mg capsule 75 mg PO BID 30 Days Qty: 60 3RF miscellaneous medical supply Misc See Rx Instructions miscellaneous .COMPLEX Qty: 1 0RF Rx Instructions: Recliner lift chair as directed; polyethylene glycol 3350 [Miralax] 17 gram/dose powder 17 g PO DAILY PRN (Reason: constipation) 30 Days Qty: 510 2RF (DME) OneTouch Ultra Test Strip See Rx Instructions .ROUTE .COMPLEX Qty: 50 11RF Dose Instruction: TEST BLOOD SUGAR DAILY Rx Instructions: TEST BLOOD SUGAR 4 times a day (DME) Depend Underwear For Women [facility] See Rx Instructions .Route Qty: 360 11RF Rx Instructions: As directed, 12 daily (DME) blood-glucose meter [Blood Glucose Monitoring] Kit See Rx Instructions .Route Qty: 1 0RF Rx Instructions: Use to test blood sugar 4 times daily (DME) Dexcom G7 Informatics Educator Misc See Rx Instructions .Route Qty: 1 0RF Rx Instructions: As directed miscellaneous medical supply [facility] See Rx Instructions miscellaneous .COMPLEX Qty: 1 0RF Rx Instructions: Wheelchair repair as directed; (DME) pen needle, diabetic [TechLITE Pen Needle] 31 gauge x 5/16 needle See Rx Instructions .ROUTE .COMPLEX Qty: 100 2RF Dose Instruction: TO USE WITH INSULIN 4 TIMES DAILY Rx Instructions: TO USE WITH INSULIN 4 TIMES DAILY insulin lispro [Humalog KwikPen Insulin] 100 unit/mL insulin pen See Rx Instructions .ROUTE .COMPLEX Qty: 15 1RF Dose Instruction: INJECT 6 UNITS SUB-Q THREE TIMES A DAY 15 MINUTES BEFORE MEALS Rx Instructions: INJECT 6 UNITS SUB-Q THREE TIMES A DAY 15 MINUTES BEFORE MEALS atorvastatin 40 mg tablet 40 mg PO DAILY Qty: 90 0RF (DME) Dexcom G7 Sensor Device See Rx Instructions .Route Qty: 3 0RF Rx Instructions: As directed cyclobenzaprine 5 mg tablet 10 mg PO QPM 90 Days Qty: 180 0RF insulin glargine [Lantus Solostar U-100 Insulin] 100 unit/mL (3 mL) insulin pen 68 unit SUBCUT DAILY 90 Days Qty: 65 0RF multivitamin Tablet 1 tab PO DAILY Qty: 0 ascorbic acid (vitamin C) [Vitamin C] 1,000 mg Tablet 1,000 mg PO DAILY Qty: 0 diltiazem HCl [Cardizem LA] 360 mg tablet extended release 24 hr 360 mg PO DAILY Qty: 30 5RF pantoprazole [Protonix] 40 mg tablet,delayed release (DR/EC) 40 mg PO BID 56 Days Qty: 112 3RF sucralfate 1 gram tablet 1 g PO BID 56 Days Qty: 112 0RF furosemide 40 mg tablet 40 mg PO BID PRN (Reason: weight gain or shortness breath) 90 Days Qty: 180 1RF Rx Instructions: AT 8 AM AND NOON potassium chloride 20 mEq tablet,ER particles/crystals 20 meq PO BID PRN (Reason: with lasix only) 90 Days Qty: 180 1RF metoprolol tartrate 100 mg tablet 150 mg PO Q12H Discontinued melatonin 5 mg capsule 10 mg PO BEDTIME PRN (Reason: insomnia) bupropion HCl 300 mg tablet extended release 24 hr 300 mg PO DAILY Qty: 30 5RF buspirone 15 mg tablet See Rx Instructions .ROUTE .COMPLEX Qty: 90 5RF Dose Instruction: TAKE ONE TABLET BY MOUTH THREE TIMES DAILY FOR ANXIETY Rx Instructions: TAKE ONE TABLET BY MOUTH THREE TIMES DAILY FOR ANXIETY methocarbamol 750 mg tablet 750 mg PO BID PRN (Reason: muscle spasm) 30 Days Qty: 60 5RF pramipexole 0.5 mg tablet 0.5 mg PO DAILY Rx Instructions: at bedtime diclofenac potassium 50 mg tablet 50 mg PO BID loratadine [Allergy Relief (loratadine)] 10 mg tablet See Rx Instructions .ROUTE .COMPLEX Qty: 90 0RF Dose Instruction: TAKE ONE TABLET BY MOUTH DAILY AT BEDTIME NEEDED FOR ALLERGY SYMPTOMS Rx Instructions: TAKE ONE TABLET BY MOUTH DAILY AT BEDTIME NEEDED FOR ALLERGY SYMPTOMS Discharge Orders: Discharge Order (Routine); Ordered 11/22/23 Ordered By: Char Diane Other Ambulatory Orders: Sleep Oximetry Study (Routine) Timeframe: 1 Week Facility: [facility] - Location: [facility] Ordered By: Rehana Szymanski Referrals: Kristine Rodriguez MD [Primary Care Provider] - 11/28/23 11:15 am Discharge Diet: Cardiac and Diabetic Patient Instructions: COPD (Chronic Obstructive Pulmonary Disease) (GEN), Opioid Safety Discharge Attestations Time Spent in Discharge Care*: greater than 30 min Status at Discharge: Cognitive status at discharge: cognitively intact, Behavioral status at discharge: cooperative, Quality Metrics Clinical Quality Measures [ No reported AMI, CVA or VTE this stay] Coding Level of Care Code Acute Code for Chg Fwd Diagnoses Polypharmacy Z79.899 Encephalopathy acute G93.40 GERD without esophagitis K21.9 Uncontrolled type 2 diabetes mellitus with hyperglycemia E11.65 Glycemic state: with hyperglycemia NONA (obstructive sleep apnea) G47.33 Chronic respiratory failure with hypoxia J96.11 Pleural effusion J90
== END 2023-11-22 15:09 | disposition home or self-care (01) | DRG 71 ==
LOC: ER 16:41 → MEDSURG 19:51
PROVIDERS: Family Medicine; Internal Medicine; Admitting Provider Internal Medicine; Emergency Provider Emergency Medicine; PCP Family Medicine; Visit Provider Student in an Organized Health Care Education/Training Program
DX: G93.40 Encephalopathy, unspecified (principal); J90 Pleural effusion, not elsewhere classified; N39.0 Urinary tract infection, site not specified; Z16.12 Extended spectrum beta lactamase (ESBL) resistance; J96.11 Chronic respiratory failure with hypoxia; R29.6 Repeated falls; E11.65 Type 2 diabetes mellitus with hyperglycemia; I48.0 Paroxysmal atrial fibrillation; Z79.01 Long term (current) use of anticoagulants; G47.33 Obstructive sleep apnea (adult) (pediatric); Z99.81 Dependence on supplemental oxygen; G47.00 Insomnia, unspecified; E11.51 Type 2 diabetes mellitus with diabetic peripheral angiopathy without gangrene; K21.9 Gastro-esophageal reflux disease without esophagitis; J44.9 Chronic obstructive pulmonary disease, unspecified; I25.10 Atherosclerotic heart disease of native coronary artery without angina pectoris; E78.5 Hyperlipidemia, unspecified; G25.81 Restless legs syndrome; Z87.891 Personal history of nicotine dependence; Z87.440 Personal history of urinary (tract) infections; B96.20 Unspecified Escherichia coli [E. coli] as the cause of diseases classified elsewhere; I11.0 Hypertensive heart disease with heart failure; I50.9 Heart failure, unspecified
CPT/HCPCS: 36415; 36416; 36600; 70450; 71045; 71260; 80048; 80053; 80306; 80307; 81000; 81001; 82140; 82607; 82746; 82803; 82962; 83605; 83735; 84145; 84439; 84443; 85025; 86140; 87040; 87086; 94640; 94660; 96365; 96372; 97161; 97530; 99285; 99291; G0378; J1335; J1815; J2543; J3475; J7040; Q9967

== ENCOUNTER → 2023-12-13 08:28 | Outpatient (BNVA) | payer MEDICARE, MEDICAID, SELFPAY ==
[2023-10-28 15:02] VITALS: BP 115/72; BMI 51.5
== END ==
PROVIDERS: PCP Family Medicine; Visit Provider Physician Assistant
DX: M19.011 Primary osteoarthritis, right shoulder (principal); M25.311 Other instability, right shoulder
CPT/HCPCS: 20610; 73030; 99213; J3301

== ENCOUNTER 2023-12-19 16:09 | Emergency (ER) | payer MEDICARE, MEDICAID, SELFPAY ==
[2023-10-28 15:02] VITALS: BP 115/72; BMI 51.5
[2023-12-19 16:13] VITALS: BP 165/76; PULSE 72; RESP 18; O2SAT 97; BMI 46.3
--- NOTE | 2023-12-19 16:17 | XRR_ITS ---
PROCEDURE INFORMATION: Exam: XR Chest Exam date and time: 12/19/2023 4:21 PM Age: 68 years old Clinical indication: Shortness of breath; Additional info: SOB TECHNIQUE: Imaging protocol: Radiologic exam of the chest. Views: 1 view. COMPARISON: CT chest w con* [id number] 11/18/2023 6:33 PM FINDINGS: Lungs: Mild diffuse interstitial prominence. No focal airspace consolidation. Pleural spaces: Unremarkable. No pleural effusion. No pneumothorax. Heart/Mediastinum: Stable cardiomediastinal contours. Vasculature: Atherosclerotic aortic calcifications. Bones/joints: Unremarkable. XR/XR chest 1V portable [id number] IMPRESSION: 1. Mild diffuse interstitial prominence may reflect atelectasis. Mild pulmonary edema and/or atypical infection also possible. 2. Stable mild cardiomegaly.
--- NOTE | 2023-12-19 16:17 | ECG_ITS ---
[facility] Test Date: 2023-12-19 Pat Name: Lin Henao Department: Room: Gender: Female Slot Key Person: : 1955 Requested By: Claudia Ram Order Number: [id number] Tylor MD: Kevon Ge M.D. Measurements Intervals [place] Rate: 65 P: -20 ID: [id number] QRS: 1 QRSD: 98 T: 10 QT: 418 QTc: 437 Interpretive Statements SINUS RHYTHM LOW QRS VOLTAGE IN PRECORDIAL LEADS [QRS DEFLECTION < 1.0 mV IN CHEST LEADS] PATTERN CONSISTENT WITH PULMONARY DISEASE INCOMPLETE RIGHT BUNDLE BRANCH BLOCK [90+ ms QRS DURATION, TERMINAL R IN V1/V2, 40+ ms S IN I/aVL/V4/V5/V6] Compared to ECG 10/29/2023 02:07:49 Incomplete right bundle-branch block now present Atrial fibrillation no longer present Myocardial infarct finding no longer present T-wave abnormality no longer present Possible ischemia no longer present Electronically Signed On 12-19-2023 17:03:27 CDT by Kevon Ge M.D. [id number]
--- NOTE | 2023-12-19 16:29 | ED_ITS ---
HPI - SOB/Dyspnea 2 General: Chief Complaint: Shortness of Breath/Dyspnea Stated Complaint: SOB Time Seen by Provider: 12/19/23 16:18 Source: patient and EMS Mode of arrival: EMS Limitations: no limitations History of Present Illness: HPI Narrative: 68-year-old female has a history of COPD CHF she is on 3 L oxygen chronically. States she had ran out of her Lasix over the last 5 to 6 days has not been taking it she is seen at the clinic today had it refilled but is not went and got her medicine said she had some increasing shortness of breath last 2 days and slight cough. Patient here is in no distress able to talk full sentences she is 98% on her 3 L. She denies any fever Associated symptoms: Deny abdominal pain, chest pain, fever(s), nausea or vomiting Related Data Home Medications Medication Instructions Recorded Confirmed aspirin 81 mg tablet,delayed 81 mg PO DAILY 11/18/23 12/19/23 release (Adult Aspirin Regimen) buspirone 15 mg tablet 15 mg PO TID 12/07/23 12/19/23 clopidogrel 75 mg tablet 75 mg PO DAILY 12/07/23 12/19/23 fluticasone furoate 100 1 inh inhalation DAILY 12/07/23 12/19/23 mcg-vilanterol 25 mcg/dose inhalation powder (Breo Ellipta) lactulose 20 gram/30 mL oral 20 g PO BID 12/07/23 12/19/23 solution metformin 1,000 mg tablet 1,000 mg PO BIDWMEAL 12/07/23 12/19/23 pramipexole 0.5 mg tablet 0.5 mg PO .at bedtime 12/07/23 12/19/23 sennosides 8.6 mg-docusate sodium 2 tab-cap PO BID 12/07/23 12/19/23 50 mg tablet Previous Rx's Medication Instructions Recorded nitroglycerin 0.4 mg sublingual 0.4 mg sublingual Q5M PRN Chest 04/15/22 tablet Pain #25 tabs diaper,brief,adult,disposable #360 ea 01/31/23 (Depend Underwear For Women XL) blood-glucose meter,continuous #1 ea 02/08/23 (Dexcom G7 Calibration Tester) insulin lispro 100 unit/mL See Rx Instructions .Route 06/15/23 subcutaneous pen (Humalog KwikPen .COMPLEX #15 mL (U-100) Insulin) blood-glucose sensor (Dexcom G7 #3 ea 08/19/23 Sensor device) insulin glargine 100 unit/mL (3 68 unit (0.68 mL) SUBCUT DAILY 90 09/13/23 mL) subcutaneous pen (Lantus #65 mL Solostar U-100 Insulin) risperidone 0.5 mg tablet 0.5 mg PO .qhs #30 tabs 10/13/23 hydrocodone 5 mg-acetaminophen 325 1 tab PO DAILY pain, severe 30 10/17/23 mg tablet days #30 tabs pregabalin 75 mg capsule 75 mg PO BID 30 days #60 caps 10/17/23 diltiazem HCl 360 mg 360 mg PO DAILY #30 tabs 10/31/23 tablet,extended release 24 hr (Cardizem LA) pantoprazole 40 mg tablet,delayed 40 mg PO BID 8 weeks #112 tabs 10/31/23 release (Protonix) bupropion HCl 300 mg 24 hr tablet, 300 mg PO DAILY 30 days #30 tabs 11/22/23 extended release pen needle, diabetic 31 gauge x #100 ea 11/24/2309/14 (BD Ultra-Fine Short Pen Needle) albuterol sulfate 90 mcg/actuation 2 puff inhalation Q6H PRN 12/06/23 aerosol inhaler shortness of breath or wheezing #8.5 grams apixaban 5 mg tablet (Eliquis) 5 mg PO BID 30 days #60 tabs 12/06/23 atorvastatin 40 mg tablet 40 mg PO DAILY #90 tabs 12/06/23 famotidine 20 mg tablet 20 mg PO BID 90 days #180 tabs 12/06/23 metoprolol tartrate 100 mg tablet 150 mg (1.5 x 100 mg) PO Q12H 90 12/06/23 days #270 tabs furosemide 40 mg tablet 40 mg PO BID PRN weight gain or 12/19/23 shortness breath 90 days #180 tabs potassium chloride 20 mEq 20 meq PO BID PRN with lasix only 12/19/23 tablet,extended release(part/cryst) 90 days #180 tabs Allergies Allergy/AdvReac Type Severity Reaction Status Date / Time propoxyphene [From Darvon] Allergy Unknown Unknown Verified 12/19/23 10:46 fluoxetine [From Prozac] AdvReac Severe ADR-Halluci Verified 12/19/23 10:46 [facility] Review of Systems 2 Const: Denies: fever(s), chills, body aches or change in appetite ENMT: Denies: throat pain or dental pain Card: Denies: chest pain Resp: Reports: dyspnea GI: Denies: abdominal pain, nausea, vomiting or diarrhea Musc: Denies: neck pain or back pain Skin/Breast: Denies: rash Neuro: Denies: headache(s) PFSH ED 2 PFSH: Medical History Congestive heart failure Encephalopathy acute Polypharmacy Atrial flutter Tachy-andra syndrome Acute anemia Rotator cuff dysfunction Smoking addiction Insomnia Wheelchair bound Oxygen dependent 2 L at home Small bowel obstruction History of colonic diverticulitis Paroxysmal SVT (supraventricular tachycardia) Nicotine dependence, cigarettes, with other nicotine-induced disorders DM type 2 (diabetes mellitus, type 2) Chest pain Atypical chest pain Paroxysmal A-fib Chronic anticoagulation initiated apixaban 08/2020 for paroxysmal atrial fibrillation Paroxysmal atrial fibrillation (~08/2020) NONA (obstructive sleep apnea) Uses CPAP Fibromyalgia Peripheral Vascular Disease Mixed stress and urge urinary incontinence Chronic pain syndrome Due to her weight and other comorbidities I do not think that there is much that pain management would be able to do. They can do localized injections or treatments on specific joints but she would never be a surgical candidate. Bipolar depression Hypertension, benign Overactive bladder RLS (restless legs syndrome) Constipation, chronic COPD (chronic obstructive pulmonary disease) GERD (gastroesophageal reflux disease) CAD (coronary artery disease) Diabetes mellitus type 2 in obese Hyperlipemia Chronic headache Panic disorder [episodic paroxysmal anxiety] Generalized anxiety disorder Major depressive disorder, recurrent, moderate Surgical History H/O: hysterectomy Hx of cholecystectomy S/P appendectomy H/O thyroidectomy Family History Mother , at age 75 Hypertension Father , at age 87 Hypertension Denies family history of Lung disease Stroke Social History Smoking and tobacco/nicotine status: never used tobacco/nicotine Alcohol intake: never Substance/Drug Use: never Adopted: No Caregiver/support person: No Lives independently: Yes Household members: none Housing: Apartment Marital status: / Number of children: 8 Number of grandchildren: 14 Highest education level completed: Some College, No Degree service: No Current occupational status: disabled Pets and animals: Yes Pets & animals: dog(s) Leisure activites: art, music, reading and other Sexually active: No Do you think of yourself as: Straight/Heterosexual Current gender identity: Female Lilliam/Rastafari: Orthodoxy Special lilliam needs: No Agree to transfusion: Yes Female Reproductive History: Para: 8 Spontaneous abortions: No Physical Exam 2 Const: COMMON NORMALS: no acute distress, patient oriented x3 and healthy appearing HENMT: COMMON NORMALS: normocephalic and atraumatic HEAD & SCALP: n ormocephalic and atraumatic Eye: COMMON NORMALS: Equal, round and reactive pupils present and EOMs intact bilaterally PUPIL: Yes Equal, round and reactive pupils present Neck/C-Spine: COMMON NORMALS: full ROM and supple Chest: COMMONS NORMALS: normal inspection of the chest and normal palpation of entire chest wall Resp: COMMON NORMALS: normal respiratory effort, No retractions, No use of accessory muscles and clear to auscultation bilaterally AUSCULTATION: clear to auscultation bilaterally Cardio: COMMON NORMALS: regular rate, regular rhythm and No murmurs present (Cardio) RATE: regular rate RHYTHM: regular rhythm GI: COMMON NORMALS: Normal to inspection, nondistended, normoactive bowel sounds present, Soft to palpation, non-tender and no masses PALPATION: Yes Soft to palpation Extremity: COMMON NORMALS: normal to inspection and full ROM Neuro: COMMON NORMALS: patient oriented x3, moves all extremities and no focal motor deficits Psych: COMMON NORMALS: mental status grossly normal, Normal thought process present and cooperative THOUGHT PROCESS: Normal thought process present Skin: COMMON NORMALS: no rashes or lesions noted and no wounds GENERAL SKIN EXAM: no rashes or lesions noted Course 2 Vital Signs: Vital signs: Vital Signs Pulse Rate 64 12/19/23 17:00 Respiratory Rate 18 12/19/23 16:13 Blood Pressure 155/77 12/19/23 17:00 Pulse Oximetry 98 12/19/23 17:00 Oxygen Delivery Me thod Room Air 12/19/23 17:00 Oxygen Flow Rate 3 08/19/24 16:13 MDM - SOB/Dyspnea Medical Decision Making Patient presents here with shortness of breath likely from her CHF she is well- appearing here she has no signs of pneumonia did give her Lasix she is feeling improved she is not requiring any increased oxygen she is to fill the Lasix she had prescribed today she stable for discharge follow-up with PCP return if worsening. Medical Records I reviewed the patient's medical records. Lab Data I reviewed the patient's lab results. 12/19/23 16:30 12/19/23 16:30 Labs/Radiology: Radiology Impressions Chest X-Ray 12/19/23 16:17 IMPRESSION: 1. Mild diffuse interstitial prominence may reflect atelectasis. Mild pulmonary edema and/or atypical infection also possible. 2. Stable mild cardiomegaly. Laboratory Results WBC 14.40 10^3/uL (3.29-11.43) H 12/19/23 16:30 RBC 4.05 10^6/uL (3.85-5.65) 12/19/23 16:30 Hgb 9.30 g/dL (11.27-16.99) L 12/19/23 16:30 Hct 31.5 % (36-47) L 12/19/23 16:30 MCV 77.8 fl (85-98) L 12/19/23 16:30 MCH 23.0 pg (27-33) L 12/19/23 16:30 MCHC 29.5 g/dL (30-55) L 12/19/23 16:30 RDW 19.0 % (12.1-15.1) H 12/19/23 16:30 Plt Count 222 10^3/cmm (157-399) 12/19/23 16:30 MPV 12.1 fL (7.4-10.4) H 12/19/23 16:30 Neut % (Auto) 76.3 % 12/19/23 16:30 Lymph % (Auto) 13.2 % 12/19/23 16:30 [place] % (Auto) 9.0 % 12/19/23 16:30 Eos % (Auto) 0.9 % 12/19/23 16:30 Baso % (Auto) 0.3 % 12/19/23 16:30 Neut # (Auto) 11.00 10^3/uL (1.8-7.7) H 12/19/23 16:30 Lymph # (Auto) 1.9 10^3/uL (0.8-4.8) 12/19/23 16:30 [place] # (Auto) 1.3 10^3/uL (0.2-0.9) H 12/19/23 16:30 Eos # (Auto) 0.1 10^3/uL (0.0-0.8) 12/19/23 16:30 Baso # (Auto) 0.0 10^3/uL (0.0-0.1) 12/19/23 16:30 Nucleated RBC % (auto) 0 % 12/19/23 16:30 Nucleated RBCs # 0.0 /100WBC 12/19/23 16:30 PT 15.30 SECONDS (12.1-14.9) H 12/19/23 16:30 INR 1.17 (0.8-1.2) 12/19/23 16:30 Sodium 137 mmol/L (136-145) 12/19/23 16:30 Potassium 4.0 mmol/L (3.5-5.1) 12/19/23 16:30 Chloride 97 mmol/L (98-107) L 12/19/23 16:30 Carbon Dioxide 25 mmol/L (22-29) 12/19/23 16:30 Anion Gap 19.0 (5-19) 12/19/23 16:30 BUN 23 mg/dL (8-23) 12/19/23 16:30 Creatinine 0.9 mg/dL (0.5-0.9) 12/19/23 16:30 GFR Calculation 62.6 mL/min (90-130) L 12/19/23 16:30 Glucose 254 mg/dL (65-115) H 12/19/23 16:30 Calculated Osmolality 296 mOsm/kg (285-295) H 12/19/23 16:30 Calcium 9.6 mg/dL (8.5-10.5) 12/19/23 16:30 Total Bilirubin 0.4 mg/dL (0.15-1.2) 12/19/23 16:30 AST 31 U/L (0-32) 12/19/23 16:30 ALT 22 U/L (0-33) 12/19/23 16:30 Alkaline Phosphatase 179 U/L (35-105) H 12/19/23 16:30 NT-Pro-B Natriuret Pep 445 pg/mL (0-125) H 12/19/23 16:30 Total Protein 7.7 g/dL (6.6-8.7) 12/19/23 16:30 Albumin 4.1 g/dL (3.5-5.2) 12/19/23 16:30 Globulin 3.6 g/dL (1.3-4.6) 12/19/23 16:30 All radiology interpretation(s) finalized by discharge Discharge Plan Discharge Patient Disposition: Home Clinical Impression: Congestive heart failure Qualifiers: Heart failure type: unspecified Heart failure chronicity: chronic Qualified Code(s): I50.9 - Heart failure, unspecified Condition: Stable Prescriptions: No Action risperidone 0.5 mg tablet 0.5 mg PO .qhs Qty: 30 3RF Hold Instructions: see pcp aspirin [Adult Aspirin Regimen] 81 mg tablet,delayed release (DR/EC) 81 mg PO DAILY Hold Instructions: bleeding albuterol sulfate 90 mcg/actuation HFA aerosol inhaler 2 puff INHALATION Q6H PRN (Reason: shortness of breath or wheezing) Qty: 8.5 5RF Eliquis 5 mg tablet 5 mg PO BID 30 Days Qty: 60 5RF Hold Instructions: Resume on 11/21/23. atorvastatin 40 mg tablet 40 mg PO DAILY Qty: 90 2RF famotidine 20 mg tablet 20 mg PO BID 90 Days Qty: 180 1RF metoprolol tartrate 100 mg tablet 150 mg PO Q12H 90 Days Qty: 270 1RF clopidogrel 75 mg tablet 75 mg PO DAILY pramipexole 0.5 mg tablet 0.5 mg PO .at bedtime buspirone 15 mg tablet 15 mg PO TID fluticasone furoate-vilanterol [Breo Ellipta] 100-25 mcg/dose blister with device 1 inh inhalation DAILY metformin 1,000 mg tablet 1,000 mg PO BIDWMEAL sennosides-docusate sodium 8.6-50 mg tablet 2 tab-cap PO BID lactulose 20 gram/30 mL solution 20 g PO BID nitroglycerin 0.4 mg tablet, sublingual 0.4 mg SUBLINGUAL Q5M PRN (Reason: Chest Pain) Qty: 25 2RF hydrocodone-acetaminophen 5-325 mg tablet 1 tab PO DAILY 30 Days Qty: 30 0RF pregabalin 75 mg capsule 75 mg PO BID 30 Days Qty: 60 3RF potassium chloride 20 mEq tablet,ER particles/crystals 20 meq PO BID PRN (Reason: with lasix only) 90 Days Qty: 180 1RF furosemide 40 mg tablet 40 mg PO BID PRN (Reason: weight gain or shortness breath) 90 Days Qty: 180 1RF (DME) Depend Underwear For Women XL Misc See Rx Instructions .Route Qty: 360 11RF Rx Instructions: As directed, 12 daily (DME) Dexcom G7 Calibration Tester Misc See Rx Instructions .Route Qty: 1 0RF Rx Instructions: As directed insulin lispro [Humalog KwikPen Insulin] 100 unit/mL insulin pen See Rx Instructions .ROUTE .COMPLEX Qty: 15 1RF Dose Instruction: INJECT 6 UNITS SUB-Q THREE TIMES A DAY 15 MINUTES BEFORE MEALS Rx Instructions: INJECT 6 UNITS SUB-Q THREE TIMES A DAY 15 MINUTES BEFORE MEALS (DME) Dexcom G7 Sensor Device See Rx Instructions .Route Qty: 3 0RF Rx Instructions: As directed insulin glargine [Lantus Solostar U-100 Insulin] 100 unit/mL (3 mL) insulin pen 68 unit SUBCUT DAILY 90 Days Qty: 65 0RF (DME) pen needle, diabetic [BD Ultra-Fine Short Pen Needle] 31 gauge x 5/16 needle See Rx Instructions .ROUTE .COMPLEX Qty: 100 2RF Dose Instruction: TO USE WITH INSULIN 4 TIMES DAILY Rx Instructions: TO USE WITH INSULIN 4 TIMES DAILY diltiazem HCl [Cardizem LA] 360 mg tablet extended release 24 hr 360 mg PO DAILY Qty: 30 5RF Hold Instructions: stopped in hospital pantoprazole [Protonix] 40 mg tablet,delayed release (DR/EC) 40 mg PO BID 56 Days Qty: 112 3RF bupropion HCl 300 mg tablet extended release 24 hr 300 mg PO DAILY 30 Days Qty: 30 0RF Discharge Orders: Discharge ED (Routine); Ordered 12/19/23 Ordered By: Claudia Ram Referrals: Kristine Rodriguez MD [Primary Care Provider] - 4-7 days Discharge Diet: Advance as tolerated Discharge Activity: Resume usual activity Patient Instructions: Heart Failure (ED) Coding Level of Care Code ED Flow Worker for Urvashi Shaw
[2023-12-19 16:37] LABS: Basophils % 0.3 %; Eosinophils # 0.1 10^3/uL (0.0-0.8); Eosinophils % 0.9 %; Hematocrit 31.5 % (36-47); Lymphocytes # 1.9 10^3/uL (0.8-4.8); Lymphocytes % 13.2 %; Mean Corpuscular HGB Conc 29.5 g/dL (30-55); Mean Corpuscular Volume 77.8 fl (85-98); Mean Platelet Volume 12.1 fL (7.4-10.4); Monocytes # 1.3 10^3/uL (0.2-0.9); Neutrophils % 76.3 %; Nucleated Red Blood Cells % 0 %; Platelet Count 222 10^3/cmm (157-399); Red Blood Count 4.05 10^6/uL (3.85-5.65)
[2023-12-19 16:47] LABS: INR 1.17 (0.8-1.2)
[2023-12-19] MEDS: FUROsemide 10 mg/mL SDV 10mL 60 MG IVP (16:52)
[2023-12-19 17:00] VITALS: BP 155/77; PULSE 64; O2SAT 98
[2023-12-19 17:03] LABS: Alanine Aminotransferase 22 U/L (0-33); Albumin Level 4.1 g/dL (3.5-5.2); Alkaline Phosphatase 179 U/L (35-105); Aspartate Amino Transferase 31 U/L (0-32); Blood Urea Nitrogen 23 mg/dL (8-23); Calcium 9.6 mg/dL (8.5-10.5); Carbon Dioxide 25 mmol/L (22-29); Chloride 97 mmol/L (98-107); Creatinine Clr Calc Pharmacy 79.4093; Globulin 3.6 g/dL (1.3-4.6); Glomerular Filtration Rate 62.6 mL/min (90-130); Glucose 254 mg/dL (65-115); NT Pro B Type Natriuretic Pept 445 pg/mL (0-125); Osmolality Calculated 296 mOsm/kg (285-295); Sodium 137 mmol/L (136-145); Total Bilirubin 0.4 mg/dL (0.15-1.2); Total Protein 7.7 g/dL (6.6-8.7)
[2023-12-19 18:00] VITALS: BP 137/66; PULSE 71; O2SAT 100
== END 2023-12-19 18:11 | disposition home or self-care (01) ==
PROVIDERS: Emergency Provider Emergency Medicine; PCP Family Medicine
DX: I50.9 Heart failure, unspecified (principal); Z99.81 Dependence on supplemental oxygen; E11.9 Type 2 diabetes mellitus without complications; I10 Essential (primary) hypertension; I48.0 Paroxysmal atrial fibrillation; I25.10 Atherosclerotic heart disease of native coronary artery without angina pectoris; Z79.82 Long term (current) use of aspirin; Z79.84 Long term (current) use of oral hypoglycemic drugs
CPT/HCPCS: 36415; 71045; 80053; 83880; 85025; 85610; 93005; 96374; 99285; J1940

== ENCOUNTER → 2023-12-28 09:56 | Outpatient (BNVA) | payer MEDICARE, MEDICAID, SELFPAY ==
[2023-12-28 11:19] VITALS: BP 115/72; BMI 51.5
== END ==
PROVIDERS: PCP Family Medicine; Visit Provider Internal Medicine
DX: E11.65 Type 2 diabetes mellitus with hyperglycemia (principal); C73 Malignant neoplasm of thyroid gland; R79.89 Other specified abnormal findings of blood chemistry; Z79.4 Long term (current) use of insulin; Z79.84 Long term (current) use of oral hypoglycemic drugs; L03.116 Cellulitis of left lower limb
CPT/HCPCS: 99214

== ENCOUNTER → 2024-02-15 10:51 | Outpatient (BNVA) | payer MEDICARE, MEDICAID, SELFPAY ==
[2023-12-28 11:19] VITALS: BP 115/72; BMI 51.5
== END ==
PROVIDERS: PCP Family Medicine; Visit Provider Surgery
DX: D50.0 Iron deficiency anemia secondary to blood loss (chronic); K21.9 Gastro-esophageal reflux disease without esophagitis; D50.9 Iron deficiency anemia, unspecified
CPT/HCPCS: 99214

== ENCOUNTER → 2024-02-21 15:17 | Outpatient (BNVA) | payer MEDICARE, MEDICAID, SELFPAY ==
[2023-12-28 11:19] VITALS: BP 115/72; BMI 51.5
== END ==
PROVIDERS: PCP Family Medicine; Visit Provider Internal Medicine Cardiovascular Disease
DX: I48.0 Paroxysmal atrial fibrillation (principal); I50.9 Heart failure, unspecified; F17.218 Nicotine dependence, cigarettes, with other nicotine-induced disorders; E11.65 Type 2 diabetes mellitus with hyperglycemia; R79.89 Other specified abnormal findings of blood chemistry; F17.210 Nicotine dependence, cigarettes, uncomplicated; Z79.01 Long term (current) use of anticoagulants; Z79.82 Long term (current) use of aspirin; Z79.4 Long term (current) use of insulin
CPT/HCPCS: 99214

== ENCOUNTER 2024-03-09 19:35 | Emergency (ER) | payer MEDICARE, MEDICAID, SELFPAY ==
[2023-12-28 11:19] VITALS: BP 115/72; BMI 51.5
[2024-03-09 19:42] VITALS: BP 125/52; PULSE 65; RESP 18; TEMP 36.6; O2SAT 98; BMI 48.5
[2024-03-09 19:53] VITALS: BP 125/52; PULSE 66; RESP 16; O2SAT 98
--- NOTE | 2024-03-09 20:07 | W.ED.SOB ---
HPI - SOB/Dyspnea General: Chief Complaint: Shortness of Breath/Dyspnea Stated Complaint: SOB Time Seen by Provider: 03/09/24 19:41 History of Present Illness: HPI Narrative: Patient presents to the ER by EMS with complaints of increased shortness of breath times a day. Patient tried her albuterol at home with no relief so then she called EMS. Patient is has COPD and CHF is normally on 2 and half liters of oxygen per nasal cannula. EMS gave her breathing treatment on route. Upon arrival patient's O2 sat was 98% on 2.5 L and patient is feeling much better. Patient actually stated she did not need any lab work done and she is ready to go home. She is calling her ride while doing my exam. Related Data Home Medications Medication Instructions Recorded Confirmed aspirin 81 mg tablet,delayed 81 mg PO DAILY 11/18/23 03/07/24 release (Adult Aspirin Regimen) clopidogrel 75 mg tablet (Plavix) 75 mg PO DAILY 12/07/23 03/07/24 diltiazem HCl 180 mg capsule,24 180 mg PO QAM 02/06/24 03/07/24 hr,extended release lactulose 10 gram/15 mL oral syrup 10 g PO BID 02/23/24 03/07/24 cholecalciferol (vitamin D3) 1,250 1,250 mcg PO .WEEKLY 03/07/24 03/07/24 mcg (50,000 unit) capsule docusate sodium 100 mg capsule 200 mg PO BID 03/07/24 03/07/24 insulin glargine 100 unit/mL (3 35 unit SUBCUT DAILY 03/07/24 03/07/24 mL) subcutaneous pen (Lantus Solostar U-100 Insulin) metformin 1,000 mg tablet 1,000 mg PO BID 03/07/24 03/07/24 pramipexole 0.5 mg tablet 0.5 mg PO BEDTIME 03/07/24 03/07/24 Previous Rx's Medication Instructions Recorded nitroglycerin 0.4 mg sublingual 0.4 mg sublingual Q5M PRN Chest 04/15/22 tablet Pain #25 tabs blood-glucose meter,continuous #1 ea 02/08/23 (Dexcom G7 Environmental Services Floor Tech) pregabalin 75 mg capsule 75 mg PO BID 30 days #60 caps 10/17/23 diltiazem HCl 360 mg 360 mg PO DAILY #30 tabs 10/31/23 tablet,extended release 24 hr (Cardizem LA) pantoprazole 40 mg tablet,delayed 40 mg PO BID 8 weeks #112 tabs 10/31/23 release (Protonix) pen needle, diabetic 31 gauge x #100 ea 11/24/23/16 (BD Ultra-Fine Short Pen Needle) albuterol sulfate 90 mcg/actuation 2 puff inhalation Q6H PRN 12/06/23 aerosol inhaler shortness of breath or wheezing #8.5 grams apixaban 5 mg tablet (Eliquis) 5 mg PO BID 30 days #60 tabs 12/06/23 atorvastatin 40 mg tablet 40 mg PO DAILY #90 tabs 12/06/23 famotidine 20 mg tablet 20 mg PO BID 90 days #180 tabs 12/06/23 metoprolol tartrate 100 mg tablet 150 mg (1.5 x 100 mg) PO Q12H 90 12/06/23 days #270 tabs potassium chloride 20 mEq 20 meq PO BID PRN with lasix only 12/19/23 tablet,extended release(part/cryst) 90 days #180 tabs insulin aspart U-100 100 unit/mL 14 unit (0.14 mL) SUBCUT TID #15 mL 12/28/23 (3 mL) subcutaneous pen (Novolog FlexPen U-100 Insulin aspart) loratadine 10 mg tablet (Allergy 10 mg PO DAILY #90 tabs 12/28/23 Relief (loratadine)) furosemide 40 mg tablet 120 mg (3 x 40 mg) PO DAILY PRN 02/06/24 weight gain or shortness breath 90 days #180 tabs sucralfate 1 gram tablet (Carafate) 1 g PO BID #60 tabs 02/06/24 diaper,brief,adult,disposable #360 ea 02/14/24 (Depend Underwear For Women XL) risperidone 0.25 mg tablet 0.25 mg PO .qhs #30 tabs 02/23/24 blood-glucose sensor (Dexcom G7 #1 ea 02/27/24 Sensor device) Allergies Allergy/AdvReac Type Severity Reaction Status Date / Time propoxyphene [From Darvon] Allergy Unknown Unknown Verified 03/07/24 12:10 fluoxetine [From Prozac] AdvReac Severe ADR-Halluci Verified 03/07/24 12:10 nating Review of Systems General: Reports: 10 or more systems reviewed and unremarkable except in HPI and below PFSH ED PFSH: Medical History Chronic anticoagulation initiated apixaban 08/2020 for paroxysmal atrial fibrillation Hypertension, benign Paroxysmal atrial fibrillation (~08/2020) Congestive heart failure Encephalopathy acute Polypharmacy Atrial flutter Tachy-andra syndrome Acute anemia Rotator cuff dysfunction Smoking addiction Insomnia Wheelchair bound Oxygen dependent 2 L at home Small bowel obstruction History of colonic diverticulitis Paroxysmal SVT (supraventricular tachycardia) Nicotine dependence, cigarettes, with other nicotine-induced disorders DM type 2 (diabetes mellitus, type 2) Chest pain Atypical chest pain Paroxysmal A-fib NONA (obstructive sleep apnea) Uses CPAP Fibromyalgia Peripheral Vascular Disease Mixed stress and urge urinary incontinence Chronic pain syndrome Due to her weight and other comorbidities I do not think that there is much that pain management would be able to do. They can do localized injections or treatments on specific joints but she would never be a surgical candidate. Bipolar depression Overactive bladder RLS (restless legs syndrome) Constipation, chronic COPD (chronic obstructive pulmonary disease) GERD (gastroesophageal reflux disease) CAD (coronary artery disease) Diabetes mellitus type 2 in obese Hyperlipemia Chronic headache Panic disorder [episodic paroxysmal anxiety] Generalized anxiety disorder Major depressive disorder, recurrent, moderate Surgical History H/O: hysterectomy Hx of cholecystectomy S/P appendectomy H/O thyroidectomy Family History Mother , at age 75 Hypertension Father , at age 87 Hypertension Denies family history of Lung disease Stroke Social History Smoking and tobacco/nicotine status: light tobacco/nicotine user cigarettes Packs smoked per day: 1 Years cigarettes smoked: 44 Alcohol intake: never Substance/Drug Use: never Adopted: No Caregiver/support person: No Lives independently: Yes Household members: none Housing: Apartment Marital status: / Number of children: 8 Number of grandchildren: 14 Highest education level completed: Some College, No Degree service: No Current occupational status: disabled Pets and animals: Yes Pets & animals: dog(s) Leisure activites: art, music, reading and other Sexually active: No Do you think of yourself as: Straight/Heterosexual Current gender identity: Female Lilliam/Hoahaoism: Pentecostalism Special lilliam needs: No Agree to transfusion: Yes Female Reproductive History: Para: 8 Spontaneous abortions: No Physical Exam Const: COMMON NORMALS: no acute distress, average body habitus, patient oriented x3, no limitations, healthy appearing, alert and well nourished HENMT: COMMON NORMALS: normocephalic, atraumatic, hearing grossly normal bilaterally, external ears normal, Normal external nose present and moist oral mucous membranes HEAD & SCALP: normocephalic and atraumatic NOSE: Normal external nose present EXTERNAL EAR: Yes external ears normal Neck/C-Spine: COMMON NORMALS: no JVD Chest: COMMONS NORMALS: normal inspection of the chest and normal palpation of entire chest wall Resp: COMMON NORMALS: normal respiratory effort, No retractions, No use of accessory muscles and clear to auscultation bilaterally AUSCULTATION: clear to auscultation bilaterally Cardio: COMMON NORMALS: no JVD, regular rate, regular rhythm, S1 normal heart sound present, S2 normal heart sound present, No gallops present (Cardio), No clicks present (Cardio), No murmurs present (Cardio) and No rub (Cardio) RATE: regular rate RHYTHM: regular rhythm HEART SOUNDS: S1 normal heart sound present and S2 normal heart sound present GI: COMMON NORMALS: Normal to inspection, nondistended, normoactive bowel sounds present, Soft to palpation, non-tender, No hepatosplenomegaly present and no masses PALPATION: Yes Soft to palpation and Yes No hepatosplenomegaly present Neuro: COMMON NORMALS: patient oriented x3 SENSORIUM/ORIENTATION: Yes alert Course Vital Signs: Vital signs: Vital Signs Temperature 98 F 03/09/24 19:42 Pulse Rate 66 03/09/24 19:53 Respiratory Rate 16 03/09/24 19:53 Blood Pressure 125/52 03/09/24 19:53 Pulse Oximetry 98 03/09/24 19:53 Oxygen Delivery Me thod Nasal Cannula 03/09/24 19:53 Oxygen Flow Rate 2.5 03/09/24 19:53 MDM - SOB/Dyspnea Medical Decision Making Patient arrived after breathing treatment by EMS feeling significantly better with an O2 sat of 98% on her standard 2.5 L. Patient will be discharged home. Medical Records I reviewed the patient's medical records. Lab Data I reviewed the patient's lab results. No radiology studies performed this visit Discharge Plan Discharge Patient Disposition: Home Clinical Impression: COPD (chronic obstructive pulmonary disease) Qualifiers: COPD type: unspecified COPD Qualified Code(s): J44.9 - Chronic obstructive pulmonary disease, unspecified Condition: Stable Prescriptions: No Action insulin aspart U-100 [Novolog FlexPen U-100 Insulin] 100 unit/mL (3 mL) insulin pen 14 unit SUBCUT TID Qty: 15 3RF Rx Instructions: May substitute for formulary aspirin [Adult Aspirin Regimen] 81 mg tablet,delayed release (DR/EC) 81 mg PO DAILY Hold Instructions: bleeding albuterol sulfate 90 mcg/actuation HFA aerosol inhaler 2 puff INHALATION Q6H PRN (Reason: shortness of breath or wheezing) Qty: 8.5 5RF Eliquis 5 mg tablet 5 mg PO BID 30 Days Qty: 60 5RF Hold Instructions: Resume on 11/21/23. atorvastatin 40 mg tablet 40 mg PO DAILY Qty: 90 2RF famotidine 20 mg tablet 20 mg PO BID 90 Days Qty: 180 1RF metoprolol tartrate 100 mg tablet 150 mg PO Q12H 90 Days Qty: 270 1RF clopidogrel [Plavix] 75 mg tablet 75 mg PO DAILY furosemide 40 mg tablet 120 mg PO DAILY PRN (Reason: weight gain or shortness breath) 90 Days Qty: 180 1RF Rx Instructions: 2 in AM, 1 @ noon, pt may hold 1-2 tabs if needed sucralfate [Carafate] 1 gram tablet 1 g PO BID Qty: 60 2RF diltiazem HCl 180 mg capsule,extended release 24 hr 180 mg PO QAM (DME) Depend Underwear For Women XL Misc See Rx Instructions .Route Qty: 360 11RF Rx Instructions: As directed, 12 daily nitroglycerin 0.4 mg tablet, sublingual 0.4 mg SUBLINGUAL Q5M PRN (Reason: Chest Pain) Qty: 25 2RF pregabalin 75 mg capsule 75 mg PO BID 30 Days Qty: 60 3RF lactulose 10 gram/15 mL syrup 10 g PO BID risperidone 0.25 mg tablet 0.25 mg PO .qhs Qty: 30 3RF Hold Instructions: see pcp potassium chloride 20 mEq tablet,ER particles/crystals 20 meq PO BID PRN (Reason: with lasix only) 90 Days Qty: 180 1RF loratadine [Allergy Relief (loratadine)] 10 mg tablet 10 mg PO DAILY Qty: 90 0RF (DME) Dexcom G7 Environmental Services Floor Tech Misc See Rx Instructions .Route Qty: 1 0RF Rx Instructions: As directed (DME) pen needle, diabetic [BD Ultra-Fine Short Pen Needle] 31 gauge x 5/16 needle See Rx Instructions .ROUTE .COMPLEX Qty: 100 2RF Dose Instruction: TO USE WITH INSULIN 4 TIMES DAILY Rx Instructions: TO USE WITH INSULIN 4 TIMES DAILY (DME) Dexcom G7 Sensor Device See Rx Instructions .ROUTE .COMPLEX Qty: 1 3RF Dose Instruction: USE TO MONITOR BLOOD SUGAR DIRECTED BY DOCTOR CHANGE SENSOR EVERY 10 DAYS Rx Instructions: USE TO MONITOR BLOOD SUGAR DIRECTED BY DOCTOR CHANGE SENSOR EVERY 10 DAYS diltiazem HCl [Cardizem LA] 360 mg tablet extended release 24 hr 360 mg PO DAILY Qty: 30 5RF Hold Instructions: Home Medication placed on hold at Doctor's office pantoprazole [Protonix] 40 mg tablet,delayed release (DR/EC) 40 mg PO BID 56 Days Qty: 112 3RF pramipexole 0.5 mg tablet 0.5 mg PO BEDTIME Rx Instructions: TAKE ONE TABLET BY MOUTH AT BEDTIME FOR 90 DAYS metformin 1,000 mg tablet 1,000 mg PO BID Rx Instructions: TAKE ONE TABLET BY MOUTH TWICE A DAY FOR 90 DAYS docusate sodium 100 mg capsule 200 mg PO BID Rx Instructions: TAKE TWO CAPSULES BY MOUTH TWICE A DAY cholecalciferol (vitamin D3) 1,250 mcg (50,000 unit) capsule 1,250 mcg PO .WEEKLY Rx Instructions: TAKE ONE CAPSULE BY MOUTH WEEKLY ON MONDAYS NEED VITAMIN D LEVEL BEFORE NEXT DR VISIT insulin glargine [Lantus Solostar U-100 Insulin] 100 unit/mL (3 mL) insulin pen 35 unit SUBCUT DAILY Discharge Orders: Discharge ED (Routine); Ordered 03/09/24 Ordered By: Juan Del Toro Referrals: Kristine Rodriguez MD [Primary Care Provider] - 1 week Patient Instructions: COPD (Chronic Obstructive Pulmonary Disease) (ED) Activity Restrictions/Additional Instructions: Thank you for choosing [facility] for your healthcare needs today. Please realize that you were seen in the emergency department and that we are providing you with an emergency medical screening exam and this may not be a complete and all exclusive of all testing and/or medical workup we may need to determine your element or severity of your illness. It is very important that you follow-up as instructed with your primary care provider or specialist for the additional evaluation and to discuss your medical treatment plan. You may return to the emergency department should you have concerns or if your condition changes or worsens in any way. Coding Level of Care Code ED Facility Maintenance Technician for Urvashi Shaw
[2024-03-09 20:56] VITALS: BP 127/59; PULSE 65; RESP 17; O2SAT 98
== END 2024-03-09 20:54 | disposition home or self-care (01) ==
PROVIDERS: Emergency Provider Emergency Medicine; PCP Family Medicine
DX: J44.9 Chronic obstructive pulmonary disease, unspecified (principal); Z79.4 Long term (current) use of insulin; Z79.82 Long term (current) use of aspirin; Z79.01 Long term (current) use of anticoagulants; F17.210 Nicotine dependence, cigarettes, uncomplicated; E11.9 Type 2 diabetes mellitus without complications; I10 Essential (primary) hypertension; I25.10 Atherosclerotic heart disease of native coronary artery without angina pectoris
CPT/HCPCS: 99283

== ENCOUNTER 2024-03-13 06:08 | Day surgery (SDC) | payer MEDICARE, MEDICAID, SELFPAY ==
[2023-12-28 11:19] VITALS: BP 115/72; BMI 51.5
--- NOTE | 2024-03-13 06:07 | W.PM.OPSUD ---
Surgery/Procedure H&P Update DATE OF PROCEDURE: March 13, 2024 DATE H&P PERFORMED: 02/15/24 H&P UPDATE INFORMATION: I have reviewed H&P completed within last 30 days, I have examined patient prior to procedure, No changes to prior documentation and [place] in [facility] [place] indicated PLANNED PROCEDURE: Operation Date: 03/13/24 07:40 Proposed Procedures p EGD 52806, 07980, G0105, K92.1, D50.0(Not Applicable) - Jamey Mota MD s Colonoscopy(Not Applicable) - Jamey Mota MD
[2024-03-13 06:28] VITALS: BP 145/73; PULSE 64; RESP 20; TEMP 36.4; O2SAT 97; BMI 48.5
[2024-03-13] MEDS: sodium chloride 0.9% 1,000 ML 30 ML IV (06:33)
[2024-03-13 06:43] LABS: Glucose Point of Care 159 mg/dL (70-110)
--- NOTE | 2024-03-13 07:34 | ANES.PREANE2 ---
Pre-Anesthetic Assessment Height/Weight: Height 5 ft 4 in Weight 283 lb Temp Pulse Resp BP Pulse Ox O2 Del Method O2 Flow Rate 97.5 F L 64 20 H 145/73 97 Nasal Cannula 3 03/13/24 06:28 03/13/24 06:28 03/13/24 06:28 03/13/24 06:28 03/13/24 06:28 03/13/24 06:28 03/13/24 06:28 Preop Diagnosis: Colonoscopy screening Operation Date: 03/13/24 07:40 Proposed Procedures p EGD 18640, 32123, G0105, K92.1, D50.0(Not Applicable) - Jamey Mota MD s Colonoscopy(Not Applicable) - Jamey Mota MD Last intake: Intake Last Liquid Date 03/12/24 Last Liquid Time 21:30 Last Solid Date 03/12/24 Last Solid Time 11:00 Social Tobacco and No alcohol Exam alert, oriented x 3, clear to auscultation bilaterally and regular rate & rhythm Airway Submandibular: within normal limits Cervical ROM: within normal limits Mallampati: Class III Dentition: other (Edentulous) Anesthetic Plan ASA status: 3 Anesthesia: MAC Other: No prior issues with anesthesia NPO since yesterday, ate chips yesterday morning but states she completed bowel prep. Few sips of propel at 4 AM Patient has COPD on home O2 2-1/2-3 L at baseline. Recently went to the ED with SOB was given a breathing treatment and sent home. She states that she is on her baseline oxygen and feeling good GERD on Protonix Type 2 diabetes on insulin, BS 159 this a.m. EKG showing sinus rhythm with right bundle branch block On chronic Plavix, taken 03/07/2024 Plan for MAC anesthetic Medications/Allergies Home Medications Medication Instructions Recorded Confirmed Last Taken Type nitroglycerin 0.4 mg sublingual 0.4 mg sublingual Q5M PRN Chest 04/15/22 03/07/24 Unknown Rx tablet Pain #25 tabs blood-glucose meter,continuous #1 ea 02/08/23 02/23/24 Unknown Rx (Dexcom G7 Humidifier Attendant) pregabalin 75 mg capsule 75 mg PO BID 30 days #60 caps 10/17/23 03/07/24 03/12/24 Rx diltiazem HCl 360 mg 360 mg PO DAILY #30 tabs 10/31/23 03/07/24 03/06/24 Rx tablet,extended release 24 hr (Cardizem LA) pantoprazole 40 mg tablet,delayed 40 mg PO BID 8 weeks #112 tabs 10/31/23 03/07/24 03/12/24 Rx release (Protonix) aspirin 81 mg tablet,delayed 81 mg PO DAILY 11/18/23 03/07/24 03/07/24 History release (Adult Aspirin Regimen) pen needle, diabetic 31 gauge x #100 ea 11/24/23 02/23/24 Unknown Rx /16 (BD Ultra-Fine Short Pen Needle) albuterol sulfate 90 mcg/actuation 2 puff inhalation Q6H PRN 12/06/23 03/07/24 03/06/24 Rx aerosol inhaler shortness of breath or wheezing #8.5 grams apixaban 5 mg tablet (Eliquis) 5 mg PO BID 30 days #60 tabs 12/06/23 03/07/24 03/07/24 Rx atorvastatin 40 mg tablet 40 mg PO DAILY #90 tabs 12/06/23 03/07/24 03/12/24 Rx famotidine 20 mg tablet 20 mg PO BID 90 days #180 tabs 12/06/23 03/07/24 03/12/24 Rx metoprolol tartrate 100 mg tablet 150 mg (1.5 x 100 mg) PO Q12H 90 12/06/23 03/07/24 03/12/24 Rx days #270 tabs clopidogrel 75 mg tablet (Plavix) 75 mg PO DAILY 12/07/23 03/07/24 03/07/24 History potassium chloride 20 mEq 20 meq PO BID PRN with lasix only 12/19/23 03/07/24 03/12/24 Rx tablet,extended release(part/cryst) 90 days #180 tabs insulin aspart U-100 100 unit/mL 14 unit (0.14 mL) SUBCUT TID #15 mL 12/28/23 03/07/24 03/12/24 Rx (3 mL) subcutaneous pen (Novolog FlexPen U-100 Insulin aspart) loratadine 10 mg tablet (Allergy 10 mg PO DAILY #90 tabs 12/28/23 03/07/24 03/12/24 Rx Relief (loratadine)) diltiazem HCl 180 mg capsule,24 180 mg PO QAM 02/06/24 03/07/24 03/12/24 History hr,extended release sucralfate 1 gram tablet (Carafate) 1 g PO BID #60 tabs 02/06/24 03/07/24 03/12/24 Rx diaper,brief,adult,disposable #360 ea 02/14/24 02/23/24 Unknown Rx (Depend Underwear For Women XL) lactulose 10 gram/15 mL oral syrup 10 g PO BID 02/23/24 03/07/24 03/12/24 History risperidone 0.25 mg tablet 0.25 mg PO .qhs #30 tabs 02/23/24 03/07/24 03/12/24 Rx blood-glucose sensor (Dexcom G7 #1 ea 02/27/24 Unknown Rx Sensor device) cholecalciferol (vitamin D3) 1,250 1,250 mcg PO .WEEKLY 03/07/24 03/07/24 03/12/24 History mcg (50,000 unit) capsule docusate sodium 100 mg capsule 200 mg PO BID 03/07/24 03/07/24 03/12/24 History insulin glargine 100 unit/mL (3 35 unit SUBCUT DAILY 03/07/24 03/07/24 03/12/24 History mL) subcutaneous pen (Lantus Solostar U-100 Insulin) metformin 1,000 mg tablet 1,000 mg PO BID 03/07/24 03/07/24 03/12/24 History pramipexole 0.5 mg tablet 0.5 mg PO BEDTIME 03/07/24 03/07/24 03/12/24 History furosemide 40 mg tablet 120 mg PO DAILY weight gain or 03/13/24 03/07/24 03/12/24 History shortness breath Allergies Allergy/AdvReac Type Severity Reaction Status Date / Time propoxyphene [From Darvon] Allergy Unknown Unknown Verified 03/07/24 12:10 fluoxetine [From Prozac] AdvReac Severe ADR-Halluci Verified 03/07/24 12:10 nating Current Medications Generic Name Dose Route Start Last Admin Trade Name Freq PRN Reason Stop Dose Admin Sodium Chloride 1,000 mls @ 30 mls/hr 03/13/24 06:30 03/13/24 06:33 Sodium Chloride 0.9% IV 03/14/24 06:29 30 mls/hr .Q24H LEORA Administration PFSH Anesthesia Medical History Chronic anticoagulation initiated apixaban 08/2020 for paroxysmal atrial fibrillation Hypertension, benign Paroxysmal atrial fibrillation (~08/2020) Congestive heart failure Encephalopathy acute Polypharmacy Atrial flutter Tachy-andra syndrome Acute anemia Rotator cuff dysfunction Smoking addiction Insomnia Wheelchair bound Oxygen dependent 2 L at home Small bowel obstruction History of colonic diverticulitis Paroxysmal SVT (supraventricular tachycardia) Nicotine dependence, cigarettes, with other nicotine-induced disorders DM type 2 (diabetes mellitus, type 2) Chest pain Atypical chest pain Paroxysmal A-fib NONA (obstructive sleep apnea) Uses CPAP Fibromyalgia Peripheral Vascular Disease Mixed stress and urge urinary incontinence Chronic pain syndrome Due to her weight and other comorbidities I do not think that there is much that pain management would be able to do. They can do localized injections or treatments on specific joints but she would never be a surgical candidate. Bipolar depression Overactive bladder RLS (restless legs syndrome) Constipation, chronic COPD (chronic obstructive pulmonary disease) GERD (gastroesophageal reflux disease) CAD (coronary artery disease) Diabetes mellitus type 2 in obese Hyperlipemia Chronic headache Panic disorder [episodic paroxysmal anxiety] Generalized anxiety disorder Major depressive disorder, recurrent, moderate Surgical History H/O: hysterectomy Hx of cholecystectomy S/P appendectomy H/O thyroidectomy Family History Mother , at age 75 Hypertension Father , at age 87 Hypertension Denies family history of Lung disease Stroke Social History Smoking and tobacco/nicotine status: light tobacco/nicotine user cigarettes Packs smoked per day: 1 Years cigarettes smoked: 44 Alcohol intake: never Substance/Drug Use: never Adopted: No Caregiver/support person: No Lives independently: Yes Household members: none Housing: Apartment Marital status: / Number of children: 8 Number of grandchildren: 14 Highest education level completed: Some College, No Degree service: No Current occupational status: disabled Pets and animals: Yes Pets & animals: dog(s) Leisure activites: art, music, reading and other Sexually active: No Do you think of yourself as: Straight/Heterosexual Current gender identity: Female Lilliam/Buddhist: Moravian Special lilliam needs: No Agree to transfusion: Yes Female Reproductive History Para: 8 Spontaneous abortions: No Data Anesthesia Cardiac Studies: Echocardiogram 10/29/23 Echocardiogram Limited Views 09/09/20 Sestamibi Stress Test (Cardiology) 09/23/20
[2024-03-13 08:13] VITALS: BP 106/63; PULSE 64; RESP 18; TEMP 36.3; O2SAT 93
[2024-03-13 08:19] VITALS: BP 137/90; PULSE 67; RESP 18; TEMP 36.2; O2SAT 97
--- NOTE | 2024-03-13 08:36 | ANE.PACU2 ---
Inpatient post-anesthesia follow up: Airway intact: Yes Vital signs: Temperature 97.1 F Pulse Rate 67 Respiratory Rate 18 Blood Pressure 137/90 Pulse Oximetry 97 Oxygen Delivery Me thod Nasal Cannula Oxygen Flow Rate 2 Fraction of Inspir ed Oxygen Hydration adequate: Yes Nausea and vomiting: No Pain level: 1 Mental status: Baseline
== END 2024-03-13 08:37 | disposition home or self-care (01) ==
PROVIDERS: PCP Family Medicine; Visit Provider Surgery
PROC: 0DJ08ZZ Inspection of Upper Intestinal Tract, Via Natural or Artificial Opening Endoscopic (ICD-10-PCS; CPT 43235; principal; 2024-03-13 07:40)
PROC: 0DJD8ZZ Inspection of Lower Intestinal Tract, Via Natural or Artificial Opening Endoscopic (ICD-10-PCS; CPT 45378; 2024-03-13 07:40)
DX: K92.1 Melena (principal); D50.0 Iron deficiency anemia secondary to blood loss (chronic); K29.50 Unspecified chronic gastritis without bleeding; D12.2 Benign neoplasm of ascending colon; J44.9 Chronic obstructive pulmonary disease, unspecified; Z99.81 Dependence on supplemental oxygen; K21.9 Gastro-esophageal reflux disease without esophagitis; E11.9 Type 2 diabetes mellitus without complications; Z79.02 Long term (current) use of antithrombotics/antiplatelets; Z79.82 Long term (current) use of aspirin; Z99.3 Dependence on wheelchair; G47.33 Obstructive sleep apnea (adult) (pediatric); I48.0 Paroxysmal atrial fibrillation; F17.210 Nicotine dependence, cigarettes, uncomplicated
CPT/HCPCS: 36416; 43239; 45380; 82962; 88305; 88342; J2704; J7030

== ENCOUNTER → 2024-03-14 09:34 | Outpatient (BNVA) | payer MEDICARE, MEDICAID, SELFPAY ==
[2023-12-28 11:19] VITALS: BP 115/72; BMI 51.5
== END ==
PROVIDERS: PCP Family Medicine; Visit Provider Emergency Medicine
DX: J96.11 Chronic respiratory failure with hypoxia (principal); E11.65 Type 2 diabetes mellitus with hyperglycemia; D50.0 Iron deficiency anemia secondary to blood loss (chronic); K92.1 Melena; F17.200 Nicotine dependence, unspecified, uncomplicated
CPT/HCPCS: 80053; 80061; 83036; 85025

== ENCOUNTER → 2024-03-21 09:09 | Outpatient (BNVA) | payer MEDICARE, MEDICAID, SELFPAY ==
[2024-03-15 13:57] VITALS: BP 121/48; BMI 48.4
== END ==
PROVIDERS: PCP Family Medicine; Visit Provider Surgery
DX: K21.9 Gastro-esophageal reflux disease without esophagitis (principal); K63.5 Polyp of colon
CPT/HCPCS: 99213

== ENCOUNTER 2024-03-29 23:52 | Observation (INO) | payer MEDICARE, MEDICAID, SELFPAY ==
[2024-03-15 13:57] VITALS: BP 121/48; BMI 48.4
[2024-03-29 23:57] VITALS: PULSE 81; RESP 20; TEMP 36.8; O2SAT 97; BMI 48.5
--- NOTE | 2024-03-29 23:57 | XRR_ITS ---
PROCEDURE INFORMATION: Exam: XR Chest Exam date and time: 03/30/2024 12:01 AM Age: 68 years old Clinical indication: Shortness of breath; Prior surgery; Surgery date: 6+ months; Surgery type: Thyroid. Gb; Patient HX: C/O SOB TECHNIQUE: Imaging protocol: Radiologic exam of the chest. Views: 1 view. COMPARISON: CR XR chest 1V portable [id number] 12/19/2023 4:21 PM FINDINGS: Lungs: Mild central vascular prominence. Lungs are free of consolidation Pleural spaces: Unremarkable. No pleural effusion. No pneumothorax. Heart/Mediastinum: Cardiomegaly. Bones/joints: Unremarkable. XR/XR chest 1V portable [id number] IMPRESSION: Cardiomegaly with central vascular prominence
--- NOTE | 2024-03-29 23:58 | ECG_ITS ---
[employer] ehealthtracker Test Date: 2024-03-30 Pat Name: Lin Henao Department: Room: 256 Gender: Female Calender Let Off Helper: : 1955 Requested By: Brianna Ceja Order Number: [id number] Tylor MD: Kevon Ge M.D. Measurements Intervals [place] Rate: 58 P: 0 IA: 0 QRS: -1 QRSD: 89 T: 22 QT: 452 QTc: 447 Interpretive Statements ATRIAL FIBRILLATION WITH SLOW VENTRICULAR RESPONSE LOW QRS VOLTAGE IN PRECORDIAL LEADS [QRS DEFLECTION < 1.0 mV IN CHEST LEADS] POSSIBLE ANTERIOR MYOCARDIAL INFARCTION , PROBABLY OLD [30 ms Q WAVE IN V3/V4, OR R < 0.2 mV IN V4] Compared to ECG 12/19/2023 16:26:03 Myocardial infarct finding now present Sinus rhythm no longer present Incomplete right bundle-branch block no longer present Electronically Signed On 04-01-2024 18:56:49 INSTALLER by Kevon Ge M.D. [email or web address]
[2024-03-30] VITALS (41 sets, daily range): BP systolic 95–189; BP diastolic 46–81; PULSE 57–80; RESP 14–25; TEMP 36.4–36.8; O2SAT 90–100; BMI 52.4
--- NOTE | 2024-03-30 00:03 | ED_ITS ---
HPI - SOB/Dyspnea 2 General: Chief Complaint: Shortness of Breath/Dyspnea Stated Complaint: sob Time Seen by Provider: 03/29/24 23:52 History of Present Illness: HPI Narrative: 68-year-old female with a history of mor bid obesity, venous stasis and venous stasis dermatitis, COPD, chronic hypoxemic respiratory failure on 3 L nasal cannula at all times, tobacco dependence atrial fibrillation with chronic anticoagulation on Eliquis, bipolar disorder, chronic pain syndrome, coronary artery disease, diabetes, who presents to the emergency room by ambulance with shortness of breath that started today. Some increased cough. No chest pain. No increase in the swelling in her legs. No increased oxygen requirement. No altered mental status. No nausea or vomiting. No abdominal pain. Related Data Home Medications Medication Instructions Recorded Confirmed aspirin 81 mg tablet,delayed 81 mg PO DAILY 11/18/23 03/30/24 release (Adult Aspirin Regimen) clopidogrel 75 mg tablet (Plavix) 75 mg PO DAILY 12/07/23 03/30/24 diltiazem HCl 180 mg capsule,24 180 mg PO QAM 02/06/24 03/30/24 hr,extended release lactulose 10 gram/15 mL oral syrup 10 g PO BID 02/23/24 03/30/24 cholecalciferol (vitamin D3) 1,250 1,250 mcg PO .WEEKLY 03/07/24 03/30/24 mcg (50,000 unit) capsule docusate sodium 100 mg capsule 200 mg PO BID 03/07/24 03/30/24 insulin glargine 100 unit/mL (3 35 unit SUBCUT DAILY 03/07/24 03/30/24 mL) subcutaneous pen (Lantus Solostar U-100 Insulin) metformin 1,000 mg tablet 1,000 mg PO BID 03/07/24 03/30/24 pramipexole 0.5 mg tablet 0.5 mg PO BEDTIME 03/07/24 03/30/24 Previous Rx's Medication Instructions Recorded nitroglycerin 0.4 mg sublingual 0.4 mg sublingual Q5M PRN Chest 04/15/22 tablet Pain #25 tabs blood-glucose meter,continuous #1 ea 02/08/23 (Dexcom G7 Merchandising Lead) diltiazem HCl 360 mg 360 mg PO DAILY #30 tabs 10/31/23 tablet,extended release 24 hr (Cardizem [place]) pantoprazole 40 mg tablet,delayed 40 mg PO BID 8 weeks #112 tabs 10/31/23 release (Protonix) pen needle, diabetic 31 gauge x #100 ea 11/24/23/16 (BD Ultra-Fine Short Pen Needle) apixaban 5 mg tablet (Eliquis) 5 mg PO BID 30 days #60 tabs 12/06/23 atorvastatin 40 mg tablet 40 mg PO DAILY #90 tabs 12/06/23 metoprolol tartrate 100 mg tablet 150 mg (1.5 x 100 mg) PO Q12H 90 12/06/23 days #270 tabs insulin aspart U-100 100 unit/mL 14 unit (0.14 mL) SUBCUT TID #15 mL 12/28/23 (3 mL) subcutaneous pen (Novolog FlexPen U-100 Insulin aspart) loratadine 10 mg tablet (Allergy 10 mg PO DAILY #90 tabs 12/28/23 Relief (loratadine)) sucralfate 1 gram tablet (Carafate) 1 g PO BID #60 tabs 02/06/24 risperidone 0.25 mg tablet 0.25 mg PO .qhs #30 tabs 02/23/24 blood-glucose sensor (Dexcom G7 #1 ea 02/27/24 Sensor device) budesonide 1 mg/2 mL suspension 0.5 mg inhalation BID #60 mL 03/14/24 for nebulization nebulizers #1 ea 03/14/24 diaper,brief,adult,disposable #360 ea 03/25/24 (Depend Underwear For Women XL) albuterol sulfate 2.5 mg/3 mL 2.5 mg (3 mL) inhalation Q6H #150 03/27/24 (0.083 %) solution for nebulization vials albuterol sulfate 90 mcg/actuation 2 puff inhalation Q6H PRN 03/27/24 aerosol inhaler shortness of breath or wheezing #8.5 grams famotidine 20 mg tablet 20 mg PO BID 90 days #180 tabs 03/27/24 furosemide 40 mg tablet 80 mg (2 x 40 mg) PO BID weight 03/27/24 gain or shortness breath #120 tabs potassium chloride 20 mEq 20 meq PO BID PRN with lasix only 03/27/24 tablet,extended release(part/cryst) 90 days #180 tabs pregabalin 75 mg capsule 75 mg PO BID 30 days #60 caps 03/27/24 Allergies Allergy/AdvReac Type Severity Reaction Status Date / Time propoxyphene [From Darvon] Allergy Unknown Unknown Verified 03/27/24 14:01 fluoxetine [From Prozac] AdvReac Severe ADR-Halluci Verified 03/27/24 14:01 duke Review of Systems 2 Narrative: Constitutional symptoms: Negative except as documented in HPI. Skin symptoms: Negative except as documented in HPI. Eye symptoms: Negative except as documented in HPI. ENMT symptoms: Negative except as documented in HPI. Respiratory symptoms: Negative except as documented in HPI. Cardiovascular symptoms: Negative except as documented in HPI. Gastrointestinal symptoms: Negative except as documented in HPI. Genitourinary symptoms: Negative except as documented in HPI. Musculoskeletal symptoms: Negative except as documented in HPI. Neurologic symptoms: Negative except as documented in HPI. Psychiatric symptoms: Negative except as documented in HPI. Endocrine symptoms: Negative except as documented in HPI. PFSH ED 2 PFSH: Medical History Smoking Chronic anticoagulation initiated apixaban 08/2020 for paroxysmal atrial fibrillation Hypertension, benign Paroxysmal atrial fibrillation (~08/2020) Congestive heart failure Encephalopathy acute Polypharmacy Atrial flutter Tachy-andra syndrome Acute anemia Rotator cuff dysfunction Smoking addiction Insomnia Wheelchair bound Oxygen dependent 2 L at home Small bowel obstruction History of colonic diverticulitis Paroxysmal SVT (supraventricular tachycardia) Nicotine dependence, cigarettes, with other nicotine-induced disorders DM type 2 (diabetes mellitus, type 2) Chest pain Atypical chest pain Paroxysmal A-fib NONA (obstructive sleep apnea) Uses CPAP Fibromyalgia Peripheral Vascular Disease Mixed stress and urge urinary incontinence Chronic pain syndrome Due to her weight and other comorbidities I do not think that there is much that pain management would be able to do. They can do localized injections or treatments on specific joints but she would never be a surgical candidate. Bipolar depression Overactive bladder RLS (restless legs syndrome) Constipation, chronic COPD (chronic obstructive pulmonary disease) GERD (gastroesophageal reflux disease) CAD (coronary artery disease) Diabetes mellitus type 2 in obese Hyperlipemia Chronic headache Panic disorder [episodic paroxysmal anxiety] Generalized anxiety disorder Major depressive disorder, recurrent, moderate Surgical History H/O: hysterectomy Hx of cholecystectomy S/P appendectomy H/O thyroidectomy Family History Mother , at age 75 Hypertension Father , at age 87 Hypertension Denies family history of Lung disease Stroke Social History Smoking and tobacco/nicotine status: never used tobacco/nicotine Alcohol intake: never Substance/Drug Use: never Adopted: No Caregiver/support person: No Lives independently: Yes Household members: none Housing: Apartment Marital status: / Number of children: 8 Number of grandchildren: 14 Highest education level completed: Some College, No Degree service: No Current occupational status: disabled Pets and animals: Yes Pets & animals: dog(s) Leisure activites: art, music, reading and other Sexually active: No Do you think of yourself as: Straight/Heterosexual Current gender identity: Female Lilliam/Orthodox: Rastafari Special lilliam needs: No Agree to transfusion: Yes Female Reproductive History: Para: 8 Spontaneous abortions: No Physical Exam 2 Narrative: EXAM NARRATIVE: General: Alert, no acute distress. Skin: Warm, dry. Head: Normocephalic, atraumatic. Neck: Supple, trachea midline. Eye: Extraocular movements are intact. Ears, nose, mouth and throat: mucosa moist. Cardiovascular: Regular, Normal peripheral perfusion. Respiratory: Lungs are clear to auscultation, respirations are non-labored, breath sounds are equal, Symmetrical chest wall expansion. Gastrointestinal: Soft, Nontender, Non distended Musculoskeletal: Normal ROM, no deformity. Neurological: Alert and oriented, No focal neurological deficit observed. Psychiatric: Cooperative, appropriate mood & affect. Course 2 Vital Signs: Vital signs: Vital Signs Temperature 98.2 F 03/30/24 04:45 Pulse Rate 60 03/30/24 04:45 Respiratory Rate 18 03/30/24 04:45 Blood Pressure 126/71 03/30/24 04:45 Pulse Oximetry 99 03/30/24 04:45 Oxygen Delivery Me thod Nasal Cannula 03/30/24 04:00 Oxygen Flow Rate 3 03/30/24 00:21 MDM - SOB/Dyspnea Medical Decision Making Differential diagnosis for patient with shortness of breath includes but is not limited to and based on the above HPI, review of systems and physical exam: Pneumonia. Bronchitis. Asthma or COPD with acute exacerbation. Acute coronary syndrome / LA. Pulmonary embolism. Anxiety. Congestive heart failure. Viral infections including influenza and Covid-19. Atrial fibrillation. Anxiety. Pleural effusion. Pneumothorax. Orders placed to evaluate differential diagnosis based on the above differential, HPI and physical exam AB.37/42/118. This is on 3 L nasal cannula. O2 sat is 96% EKG: Time 12:18 AM. Rate 58. Atrial fibrillation with slow ventricular response, No ST-T changes, no ectopy, This was reviewed and interpreted by myself the ER physician at 12:20 AM Lab Review: Patient has a significant anemia. Hemoglobin 6.6. Her blood pressure soft but her proBNP is elevated over baseline. I feel like she needs to be admitted to observation and reevaluated after blood rather than just an outpatient blood transfusion. Assessment and plan: Anemia Congestive heart failure ?2 units PRBCs ordered in the emergency room. -I discussed the patient with the hospitalist on-call who is admitting the patient. - Discussed findings and plan with patient. Answered any questions. - All laboratory values were reviewed and interpreted personally by myself, the ER physician - All imaging was reviewed and interpreted personally by myself, the ER physician. - Evaluation and treatment of this problem were appropriate in the emergency setting Lab Data 03/30/24 01:06 03/30/24 01:06 Labs/Radiology: Radiology Impressions Chest X-Ray 03/29/24 23:57 IMPRESSION: Cardiomegaly with central vascular prominence Laboratory Results WBC 9.39 10^3/uL (3.29-11.43) 03/30/24 01:06 RBC 3.31 10^6/uL (3.85-5.65) L 03/30/24 01:06 Hgb 6.60 g/dL (11.27-16.99) L 03/30/24 01:06 Hct 25.0 % (36-47) L 03/30/24 01:06 MCV 75.5 fl (85-98) L 03/30/24 01:06 MCH 19.9 pg (27-33) L 03/30/24 01:06 MCHC 26.4 g/dL (30-55) L 03/30/24 01:06 RDW 17.2 % (12.1-15.1) H 03/30/24 01:06 Plt Count 191 10^3/cmm (157-399) 03/30/24 01:06 MPV 12.1 fL (7.4-10.4) H 03/30/24 01:06 Neut % (Auto) 69.8 % 03/30/24 01:06 Lymph % (Auto) 19.6 % 03/30/24 01:06 [place] % (Auto) 8.6 % 03/30/24 01:06 Eos % (Auto) 1.3 % 03/30/24 01:06 Baso % (Auto) 0.4 % 03/30/24 01:06 Neut # (Auto) 6.55 10^3/uL (1.8-7.7) 03/30/24 01:06 Lymph # (Auto) 1.8 10^3/uL (0.8-4.8) 03/30/24 01:06 [place] # (Auto) 0.8 10^3/uL (0.2-0.9) 03/30/24 01:06 Eos # (Auto) 0.1 10^3/uL (0.0-0.8) 03/30/24 01:06 Baso # (Auto) 0.0 10^3/uL (0.0-0.1) 03/30/24 01:06 Nucleated RBC % (auto) 0 % 03/30/24 01:06 Nucleated RBCs # 0.0 /100WBC 03/30/24 01:06 Specimen Type Arterial 03/30/24 00:14 Sample Site Radial, right 03/30/24 00:14 ABG pH 7.37 (7.35-7.45) 03/30/24 00:14 ABG pCO2 41.7 mmHg (35-45) 03/30/24 00:14 ABG pO2 118.0 mmHg (80.0-100.0) H 03/30/24 00:14 ABG PO2/FiO2 Ratio 368 03/30/24 00:14 ABG HCO3 24.3 mmol/L (22-26) 03/30/24 00:14 ABG O2 Saturation 98.7 03/30/24 00:14 ABG Base Excess -0.9 mmol/L (-2.0-2.0) 03/30/24 00:14 Robert Test Pos 03/30/24 00:14 A-a O2 Gradient 7.7 mmHg (5-10) 03/30/24 00:14 Hematocrit 21.0 % (37-47) L 03/30/24 00:14 Hgb O2 Saturation 95.9 % (95-100) 03/30/24 00:14 Carboxyhemoglobin 1.0 %THgb (0.4-20.1) 03/30/24 00:14 Methemoglobin 1.8 % (0.4-1.5) H 03/30/24 00:14 Total Hemoglobin 6.9 g/dL (12-16) L 03/30/24 00:14 Sodium 143.0 mmol/L (131-143) 03/30/24 00:14 Potassium 4.1 mmol/L (3.5-5.0) 03/30/24 00:14 Glucose 114.0 mg/dL (70-115) 03/30/24 00:14 Ionized Calcium 1.2 mmol/L (1.1-1.4) 03/30/24 00:14 O2 Delivery Device Nc 03/30/24 00:14 O2 Liters/Min 3.0 % 03/30/24 00:14 FiO2 32.0 % 03/30/24 00:14 Baseball Inspector ID Ed 03/30/24 00:14 Sodium 142 mmol/L (136-145) 03/30/24 01:06 Potassium 4.5 mmol/L (3.5-5.1) 03/30/24 01:06 Chloride 104 mmol/L (98-107) 03/30/24 01:06 Carbon Dioxide 25 mmol/L (22-29) 03/30/24 01:06 Anion Gap 17.5 (5-19) 03/30/24 01:06 BUN 23 mg/dL (8-23) 03/30/24 01:06 Creatinine 1.3 mg/dL (0.5-0.9) H 03/30/24 01:06 GFR Calculation 41.0 mL/min (90-130) L 03/30/24 01:06 Glucose 116 mg/dL (65-115) H 03/30/24 01:06 Calculated Osmolality 299 mOsm/kg (285-295) H 03/30/24 01:06 Lactic Acid 3.2 mmol/L (0.5-2.2) H 03/30/24 01:06 Calcium 9.0 mg/dL (8.5-10.5) 03/30/24 01:06 Total Bilirubin 0.4 mg/dL (0.15-1.2) 03/30/24 01:06 AST 19 U/L (0-32) 03/30/24 01:06 ALT 9 U/L (0-33) 03/30/24 01:06 Alkaline Phosphatase 127 U/L (35-105) H 03/30/24 01:06 Troponin T Baseline 38 ng/L (0-10) H 03/30/24 01:06 NT-Pro-B Natriuret Pep 3016 pg/mL (0-125) H 03/30/24 01:06 Total Protein 7.1 g/dL (6.6-8.7) 03/30/24 01:06 Albumin 4.1 g/dL (3.5-5.2) 03/30/24 01:06 Globulin 3.0 g/dL (1.3-4.6) 03/30/24 01:06 Coronavirus (PCR) Negative (Negative) 03/30/24 00:13 Influenza A (PCR) Negative (Negative) 03/30/24 00:13 Influenza Type B (PCR) Negative (Negative) 03/30/24 00:13 RSV (PCR) Negative (Negative) 03/30/24 00:13 Blood Type A Positive 03/30/24 01:37 Rho(D) Type Rh positive 03/30/24 01:37 Antibody Screen Negative 03/30/24 01:37 Crossmatch See Detail 03/30/24 01:37 All radiology interpretation(s) finalized by discharge Discharge Plan Discharge Patient Disposition: Placed in Observation Admit Provider: Char Diane Clinical Impression: Anemia Congestive heart failure Qualifiers: Heart failure type: unspecified Heart failure chronicity: chronic Qualified Code(s): I50.9 - Heart failure, unspecified Coding Level of Care Code ED Dental Ceramist Helper for Krysta Valeria
[2024-03-30] MEDS: albuterol 2.5 mg/3 mL Neb INHALATION ×4 (00:20→21:09)
[2024-03-30 00:25] LABS: ABG PCO2 41.7 mmHg (35-45); ABG PH Result 7.37 (7.35-7.45); Alveolar-Arterial Oxygen Gradi 7.7 mmHg (5-10); Base Excess ABG -0.9 mmol/L (-2.0-2.0); Blood Gas Allen Test Pos; Blood Gas Operator Identificat ED; Blood Gas Sample Site Radial, right; Blood Gas Sample Type Arterial; HCO3 ABG 24.3 mmol/L (22-26); HGB O2 Sat 95.9 % (95-100); Ionized Calcium Level - ABG 1.2 mmol/L (1.1-1.4); Methemoglobin 1.8 % (0.4-1.5); Oxygen Device NC; Oxygen Saturation ABG 98.7; PO2 FiO2 Ratio Arterial Blood 368; Potassium Level - ABG 4.1 mmol/L (3.5-5.0); Total Hemoglobin 6.9 g/dL (12-16)
[2024-03-30 01:16] LABS: Basophils % 0.4 %; Eosinophils # 0.1 10^3/uL (0.0-0.8); Eosinophils % 1.3 %; Lymphocytes # 1.8 10^3/uL (0.8-4.8); Lymphocytes % 19.6 %; Mean Corpuscular HGB Conc 26.4 g/dL (30-55); Mean Corpuscular Hemoglobin 19.9 pg (27-33); Mean Corpuscular Volume 75.5 fl (85-98); Mean Platelet Volume 12.1 fL (7.4-10.4); Monocytes # 0.8 10^3/uL (0.2-0.9); Monocytes % 8.6 %; Neutrophils # 6.55 10^3/uL (1.8-7.7); Neutrophils % 69.8 %; Nucleated Red Blood Cells % 0 %; Platelet Count 191 10^3/cmm (157-399); Red Blood Count 3.31 10^6/uL (3.85-5.65); Red Cell Distribution Width 17.2 % (12.1-15.1); White Blood Count 9.39 10^3/uL (3.29-11.43)
[2024-03-30 01:18] LABS: Covid PCR NEGATIVE (Negative); Influenza A NEGATIVE (Negative); Influenza B NEGATIVE (Negative); Respiratory Syncytial Virus Ce NEGATIVE (Negative)
[2024-03-30 01:31] LABS: Lactic Sepsis W/Reflex 3.2 mmol/L (0.5-2.2)
[2024-03-30 01:34] LABS: Troponin(5th) Baseline 38 ng/L (0-10)
[2024-03-30 01:44] LABS: Alanine Aminotransferase 9 U/L (0-33); Albumin Level 4.1 g/dL (3.5-5.2); Alkaline Phosphatase 127 U/L (35-105); Anion Gap 17.5 (5-19); Aspartate Amino Transferase 19 U/L (0-32); Blood Urea Nitrogen 23 mg/dL (8-23); Carbon Dioxide 25 mmol/L (22-29); Chloride 104 mmol/L (98-107); Creatinine Clr Calc Pharmacy 56.5608; Glucose 116 mg/dL (65-115); NT Pro B Type Natriuretic Pept 3016 pg/mL (0-125); Osmolality Calculated 299 mOsm/kg (285-295); Potassium 4.5 mmol/L (3.5-5.1); Sodium 142 mmol/L (136-145); Total Bilirubin 0.4 mg/dL (0.15-1.2); Total Protein 7.1 g/dL (6.6-8.7)
[2024-03-30 03:00] LABS: Reflex Lactate Order REFLEX LACTIC ORDERD
--- NOTE | 2024-03-30 05:15 | PM.HP ---
Providers/Chief Complaint Admitting Physician: Char Diane MD Primary Care Provider: Kristine Rodriguez MD Chief Complaint: sob History of Present Illness Lin Henao is a 68 year old female with multiple comorbid conditions including diabetic with lower extremity ulcers, peripheral arterial disease, super morbid obesity, chronic headaches, chronic pain, tobacco abuse, oxygen dependent COPD, anticoagulation for paroxysmal atrial fibrillation and a history of DVT. Has history of chronic A-fib takes aspirin Plavix and Eliquis. I am uncertain why she is on dual antiplatelet therapy, has a history of nonobstructive CAD, last cardiac catheterization 2 to 3 years ago was with normal coronaries. She has a recent history of melanotic schools for which she underwent EGD and colonoscopy which found a polyp. Pathology showed adenoma for which she has been referred to [facility]. Additionally was noted some gastritis on the EGD. The melena appears to have since resolved. Her hemoglobin as checked on the 13th of this month was around 6.5. She does not recall having had any Blood transfusion She presents today with progressively increasing fatigue and dyspnea. Hemoglobin continues to be at 6.6 today and is likely contributing to her symptoms. She has chronic lower extremity edema but does not appear to be worse than at baseline. Review of Systems General: Reports: 10 or more systems reviewed and unremarkable except in HPI and below Const: Denies: fever(s), chills or body aches Eyes: Denies: change in vision, blurry vision or photophobia ENMT: Reports: hoarseness; Denies: throat pain, enlarged tonsils, odynophagia or nasal congestion Card: Denies: chest pain, palpitations, irregular heart rhythm, edema, swelling of feet/ankles, lightheadedness, pre-syncope, dyspnea on exertion or orthopnea Resp: Denies: dyspnea, productive cough, non-productive cough, wheezing, stridor, pain on inspiration, change in phlegm color, hemoptysis or chest congestion GI: Denies: abdominal pain, nausea, vomiting, hematemesis, coffee ground emesis, dysphagia, heartburn, diarrhea, constipation, GI cramping, change in stool character, hematochezia or melena : Denies: flank pain, difficulty voiding, dysuria, urinary frequency, urinary urgency, urinary hesitancy or hematuria Musc: Denies: neck pain, back pain, extremity pain, joint swelling, joint warmth or deformity Neuro: Denies: headache(s), numbness in extremities, weakness in extremities, sensory changes, difficulty walking, frequent falls, dizziness, vertigo, behavioral changes, Slurred speech present or seizure-like activity Psych: Denies: anxiety, depression, suicidal ideation or homicidal ideation Endo: Denies: polyuria, polydipsia, tired all the time, cold intolerance or hot flashes Jagjit/Lymph: Denies: easy bruising or easy bleeding Medications/Allergies Home Medications Medication Instructions Recorded Confirmed Last Taken Type nitroglycerin 0.4 mg sublingual 0.4 mg sublingual Q5M PRN Chest 04/15/22 03/30/24 Unknown Rx tablet Pain #25 tabs blood-glucose meter,continuous #1 ea 02/08/23 03/30/24 Unknown Rx (Dexcom G7 Assistant Front Office Manager) diltiazem HCl 360 mg 360 mg PO DAILY #30 tabs 10/31/23 03/30/24 03/29/24 Rx tablet,extended release 24 hr (Cardizem LA) pantoprazole 40 mg tablet,delayed 40 mg PO BID 8 weeks #112 tabs 10/31/23 03/30/24 03/29/24 Rx release (Protonix) aspirin 81 mg tablet,delayed 81 mg PO DAILY 11/18/23 03/30/24 03/29/24 History release (Adult Aspirin Regimen) pen needle, diabetic 31 gauge x #100 ea 11/24/23 03/30/24 Unknown Rx 5/16 (BD Ultra-Fine Short Pen Needle) apixaban 5 mg tablet (Eliquis) 5 mg PO BID 30 days #60 tabs 12/06/23 03/30/24 03/29/24 Rx atorvastatin 40 mg tablet 40 mg PO DAILY #90 tabs 12/06/23 03/30/24 03/29/24 Rx metoprolol tartrate 100 mg tablet 150 mg (1.5 x 100 mg) PO Q12H 90 12/06/23 03/30/24 03/29/24 Rx days #270 tabs clopidogrel 75 mg tablet (Plavix) 75 mg PO DAILY 12/07/23 03/30/24 03/29/24 History insulin aspart U-100 100 unit/mL 14 unit (0.14 mL) SUBCUT TID #15 mL 12/28/23 03/30/24 03/25/24 Rx (3 mL) subcutaneous pen (Novolog FlexPen U-100 Insulin aspart) loratadine 10 mg tablet (Allergy 10 mg PO DAILY #90 tabs 12/28/23 03/30/24 03/29/24 Rx Relief (loratadine)) diltiazem HCl 180 mg capsule,24 180 mg PO QAM 02/06/24 03/30/24 03/29/24 History hr,extended release sucralfate 1 gram tablet (Carafate) 1 g PO BID #60 tabs 02/06/24 03/30/24 03/29/24 Rx lactulose 10 gram/15 mL oral syrup 10 g PO BID 02/23/24 03/30/24 03/29/24 History risperidone 0.25 mg tablet 0.25 mg PO .qhs #30 tabs 02/23/24 03/30/24 03/29/24 Rx blood-glucose sensor (Dexcom G7 #1 ea 02/27/24 03/30/24 Unknown Rx Sensor device) cholecalciferol (vitamin D3) 1,250 1,250 mcg PO .WEEKLY 03/07/24 03/30/24 03/26/24 History mcg (50,000 unit) capsule docusate sodium 100 mg capsule 200 mg PO BID 03/07/24 03/30/24 03/29/24 History insulin glargine 100 unit/mL (3 35 unit SUBCUT DAILY 03/07/24 03/30/24 03/29/24 History mL) subcutaneous pen (Lantus Solostar U-100 Insulin) metformin 1,000 mg tablet 1,000 mg PO BID 03/07/24 03/30/24 03/29/24 History pramipexole 0.5 mg tablet 0.5 mg PO BEDTIME 03/07/24 03/30/24 03/29/24 History budesonide 1 mg/2 mL suspension 0.5 mg inhalation BID #60 mL 03/14/24 03/30/24 03/29/24 Rx for nebulization nebulizers #1 ea 03/14/24 03/30/24 Unknown Rx diaper,brief,adult,disposable #360 ea 03/25/24 03/30/24 Unknown Rx (Depend Underwear For Women XL) albuterol sulfate 2.5 mg/3 mL 2.5 mg (3 mL) inhalation Q6H #150 03/27/24 03/30/24 03/29/24 Rx (0.083 %) solution for nebulization vials albuterol sulfate 90 mcg/actuation 2 puff inhalation Q6H PRN 03/27/24 03/30/24 03/29/24 Rx aerosol inhaler shortness of breath or wheezing #8.5 grams famotidine 20 mg tablet 20 mg PO BID 90 days #180 tabs 03/27/24 03/30/24 03/29/24 Rx furosemide 40 mg tablet 80 mg (2 x 40 mg) PO BID weight 03/27/24 03/30/24 03/29/24 Rx gain or shortness breath #120 tabs potassium chloride 20 mEq 20 meq PO BID PRN with lasix only 03/27/24 03/30/24 03/29/24 Rx tablet,extended release(part/cryst) 90 days #180 tabs pregabalin 75 mg capsule 75 mg PO BID 30 days #60 caps 03/27/24 03/30/24 03/29/24 Rx Allergies Allergy/AdvReac Type Severity Reaction Status Date / Time propoxyphene [From Darvon] Allergy Unknown Unknown Verified 03/27/24 14:01 fluoxetine [From Prozac] AdvReac Severe ADR-Halluci Verified 03/27/24 14:01 [facility] Acute PFSH: Medical History Smoking Chronic anticoagulation initiated apixaban 08/2020 for paroxysmal atrial fibrillation Hypertension, benign Paroxysmal atrial fibrillation (~08/2020) Congestive heart failure Encephalopathy acute Polypharmacy Atrial flutter Tachy-andra syndrome Acute anemia Rotator cuff dysfunction Smoking addiction Insomnia Wheelchair bound Oxygen dependent 2 L at home Small bowel obstruction History of colonic diverticulitis Paroxysmal SVT (supraventricular tachycardia) Nicotine dependence, cigarettes, with other nicotine-induced disorders DM type 2 (diabetes mellitus, type 2) Chest pain Atypical chest pain Paroxysmal A-fib NONA (obstructive sleep apnea) Uses CPAP Fibromyalgia Peripheral Vascular Disease Mixed stress and urge urinary incontinence Chronic pain syndrome Due to her weight and other comorbidities I do not think that there is much that pain management would be able to do. They can do localized injections or treatments on specific joints but she would never be a surgical candidate. Bipolar depression Overactive bladder RLS (restless legs syndrome) Constipation, chronic COPD (chronic obstructive pulmonary disease) GERD (gastroesophageal reflux disease) CAD (coronary artery disease) Diabetes mellitus type 2 in obese Hyperlipemia Chronic headache Panic disorder [episodic paroxysmal anxiety] Generalized anxiety disorder Major depressive disorder, recurrent, moderate Surgical History H/O: hysterectomy Hx of cholecystectomy S/P appendectomy H/O thyroidectomy Family History Mother , at age 75 Hypertension Father , at age 87 Hypertension Denies family history of Lung disease Stroke Social History Smoking and tobacco/nicotine status: never used tobacco/nicotine Alcohol intake: never Substance/Drug Use: never Adopted: No Caregiver/support person: No Lives independently: Yes Household members: none Housing: Apartment Marital status: / Number of children: 8 Number of grandchildren: 14 Highest education level completed: Some College, No Degree service: No Current occupational status: disabled Pets and animals: Yes Pets & animals: dog(s) Leisure activites: art, music, reading and other Sexually active: No Do you think of yourself as: Straight/Heterosexual Current gender identity: Female Lilliam/Shinto: Caodaism Special lilliam needs: No Agree to transfusion: Yes Female Reproductive History: Para: 8 Spontaneous abortions: No Vitals/I&O/Wt Last Vital Signs Temp 98.2 F 03/30/24 04:45 Pulse 60 03/30/24 04:45 Resp 18 03/30/24 04:45 BP 126/71 03/30/24 04:45 Pulse Ox 99 03/30/24 04:45 O2 Del Method Nasal Cannula 03/30/24 04:00 O2 Flow Rate 3 03/30/24 00:21 03/29/24 03/29/24 03/30/24 14:59 22:59 06:59 Intake Total 0 / 0 Balance 0 / 0 Weight last 48 hrs Weight 138.572 kg Weight 138.516 kg Weight 128.367 kg Physical Exam Narrative: General: No acute distress, AO x3 HEENT: PERRLA, pupils bilaterally equal and reactive, pallors not present Chest: Normal vesicular breath sounds, no added sounds, equal good air entry bilaterally CVS: S1-S2 regular, no murmurs, no tachycardia, no gallops, no rubs Abdomen: Soft, nontender, no organomegaly, bowel sounds present Neuro: No focal deficits, no facial deformity, AO x3, power 5/5 in all limbs Extremities: B/L LE edema and shallow ulcers, stasis dermatitis ,patient reports unchanged over baseline. Data 03/30/24 14:02 03/30/24 01:06 A&P Assessment and plan (1) Severe anemia: Hb 6.6, likely from recent GI bleed Symptomatic with dyspnea transfuse 1PRBC , trend H&H post trasfusion denies active ginger (2) Chronic anticoagulation: patient on a/c with Eliquis Reviewing inpatient notes from October, she was supposed to have stopped ASA and Plavix and continued only Eliquis, however it appears patient is taking DAPT + eliquis which will put her at high risk of bleeding. Will hold a/c and antiplatelets for now at discharge likely resume eliquis if no active bleeding +/- plavix and stop ASA (3) Atrial fibrillation: patient does not know dose of diltiazem that she takes at home mostrecent prescription from PCP is that of 180 cardizem + 150 BID metoprolol HR currently 57-68, will start only metorpolol for now as inpatient and then add cardizem if needed Attestations Medical Necessity Statement*: less than 2 midnight stay anticipated currently Coding Level of Care Code Acute Code for Chg Fwd Moderate MDM includes number and complexity of problems actively addressed during encounter, amount and/or complexity of data reviewed/ordered and described risk of complication, morbidity or mortality of management as documented Diagnoses Severe anemia D64.9 Chronic anticoagulation Z79.01 Atrial fibrillation I48.91
[2024-03-30] MEDS: metoprolol tartrate 50 mg Tablet 150 MG PO (05:41)
[2024-03-30] MEDS: budesonide 0.5 mg/2 mL Neb INHALATION ×2 (08:16→21:09)
[2024-03-30 08:29] LABS: Troponin 5 6HR 34.84 ng/L (0-10)
[2024-03-30 08:32] LABS: Lactic Acid level (Lactate) 2.3 mmol/L (0.5-2.2)
[2024-03-30 08:34] LABS: Troponin 5 6HR Delta -3.16 ng/L (0-12)
[2024-03-30] MEDS: insulin lispro 100 unit/1 mL 14 UNIT SUBCUT ×2 (09:13→12:59)
[2024-03-30] MEDS: lactulose oral liq 20 gm/30 mL UDC 10 GM PO (09:13)
[2024-03-30] MEDS: FUROsemide 40 mg Tablet 80 MG PO ×2 (09:14→18:39)
[2024-03-30] MEDS: pantoprazole DR 40 mg Tablet PO ×2 (09:14→18:39)
[2024-03-30] MEDS: sucralfate 1 gm Tablet PO ×2 (09:14→18:39)
[2024-03-30] MEDS: atorvastatin 40 mg Tablet PO (09:14)
[2024-03-30] MEDS: pregabalin 75 mg Capsule PO ×2 (09:14→18:39)
[2024-03-30] MEDS: sodium chloride 0.9% 100 mL Bag 50 ML IV (09:55)
[2024-03-30 10:52] LABS: Glucose Point of Care 150 mg/dL (70-110)
[2024-03-30 10:52] LABS: Glucose Point of Care 230 mg/dL (70-110)
[2024-03-30 14:18] LABS: Hematocrit 28.3 % (36-47)
[2024-03-30] MEDS: insulin glargine 100 units/1 mL 35 UNIT SUBCUT (15:38)
[2024-03-30 17:11] LABS: Glucose Point of Care 96 mg/dL (70-110)
[2024-03-30] MEDS: risperiDONE 0.25 mg Tablet PO (20:12)
[2024-03-30] MEDS: pramipexole 0.25 mg Tablet 0.5 MG PO (20:12)
[2024-03-31] VITALS (10 sets, daily range): BP systolic 117–134; BP diastolic 54–68; PULSE 54–71; RESP 16–18; TEMP 36.4–37.7; O2SAT 95–99
[2024-03-31 02:20] LABS: Glucose Point of Care 103 mg/dL (70-110)
[2024-03-31] MEDS: albuterol 2.5 mg/3 mL Neb INHALATION ×3 (02:32→13:58)
[2024-03-31 04:57] LABS: Basophils % 0.4 %; Eosinophils # 0.2 10^3/uL (0.0-0.8); Eosinophils % 1.9 %; Hematocrit 29.7 % (36-47); Lymphocytes # 1.8 10^3/uL (0.8-4.8); Lymphocytes % 19.7 %; Mean Corpuscular HGB Conc 27.6 g/dL (30-55); Mean Corpuscular Hemoglobin 21.2 pg (27-33); Mean Corpuscular Volume 76.7 fl (85-98); Mean Platelet Volume 11.2 fL (7.4-10.4); Monocytes # 0.9 10^3/uL (0.2-0.9); Monocytes % 9.8 %; Neutrophils # 6.17 10^3/uL (1.8-7.7); Neutrophils % 68.1 %; Nucleated Red Blood Cells % 0 %; Platelet Count 165 10^3/cmm (157-399); Red Blood Count 3.87 10^6/uL (3.85-5.65); Red Cell Distribution Width 17.2 % (12.1-15.1); White Blood Count 9.07 10^3/uL (3.29-11.43)
[2024-03-31 05:20] LABS: Alanine Aminotransferase 9 U/L (0-33); Albumin Level 3.7 g/dL (3.5-5.2); Alkaline Phosphatase 127 U/L (35-105); Anion Gap 15.9 (5-19); Aspartate Amino Transferase 23 U/L (0-32); Blood Urea Nitrogen 20 mg/dL (8-23); Calcium 8.7 mg/dL (8.5-10.5); Carbon Dioxide 26 mmol/L (22-29); Chloride 104 mmol/L (98-107); Creatinine Clr Calc Pharmacy 70.0417; Globulin 3.5 g/dL (1.3-4.6); Glomerular Filtration Rate 49.7 mL/min (90-130); Glucose 109 mg/dL (65-115); Osmolality Calculated 297 mOsm/kg (285-295); Potassium 3.9 mmol/L (3.5-5.1); Sodium 142 mmol/L (136-145); Total Bilirubin 0.7 mg/dL (0.15-1.2); Total Protein 7.2 g/dL (6.6-8.7)
[2024-03-31 07:08] LABS: Glucose Point of Care 106 mg/dL (70-110)
[2024-03-31 08:00] LABS: Glucose Point of Care 128 mg/dL (70-110)
[2024-03-31] MEDS: lactulose oral liq 20 gm/30 mL UDC 10 GM PO (09:09)
[2024-03-31] MEDS: atorvastatin 40 mg Tablet PO (09:10)
[2024-03-31] MEDS: pantoprazole DR 40 mg Tablet PO (09:10)
[2024-03-31] MEDS: sucralfate 1 gm Tablet PO (09:10)
[2024-03-31] MEDS: FUROsemide 40 mg Tablet 80 MG PO (09:10)
[2024-03-31] MEDS: pregabalin 75 mg Capsule PO (09:10)
[2024-03-31] MEDS: budesonide 0.5 mg/2 mL Neb INHALATION (09:21)
[2024-03-31 11:52] LABS: Glucose Point of Care 180 mg/dL (70-110)
--- NOTE | 2024-03-31 12:00 | PC.NURSE ---
pt refused scheduled insulin stating she was concerned that her blood sugar would drop too low.
[2024-03-31 13:14] LABS: Bilirubin Urine Negative (Negative); Blood Urine Negative (Negative); Glucose Urine UA Negative (Normal); Ketones Urine Negative (Negative); Leukocyte Esterase Urine Negative (Negative); Nitrate Urine Positive (Negative); Protein Urine 1+ (Negative); Specific Gravity, Urine 1.011 (1.005-1.030); Urine Appearance Cloudy (CLEAR); Urine Color Yellow (Yellow)
[2024-03-31 13:17] LABS: Add Urine Microscopic? YES; Bacteria Urine 4+ /hpf; Hyaline Casts Urine 20.27 /lpf; RBC Urine 0-2 /hpf (0-2); WBC Urine 0-5 /hpf (0-5)
[2024-03-31 13:34] LABS: UA Slide Review UA Slide Review Perf
--- NOTE | 2024-03-31 13:55 | PM.DCS ---
Discharge Providers Date of Admission: 03/30/24 02:34 Date of Discharge: March 31, 2024 Attending Provider at Admission: Char Diane MD Attending Provider at Discharge: Bladimir Oconnor MD Primary Care Provider: Kristine Rodriguez MD Diagnoses at Discharge Discharge Diagnosis (1) Severe anemia: Status: Acute (2) Chronic anticoagulation: Status: Acute Permanent problem details: initiated apixaban 08/2020 for paroxysmal atrial fibrillation (3) Atrial fibrillation: Status: Inactive Reason for Visit Reason for Visit: sob Brief History: History as per HPI: Lin Henao is a 68 year old female with multiple comorbid conditions including diabetic with lower extremity ulcers, peripheral arterial disease, super morbid obesity, chronic headaches, chronic pain, tobacco abuse, oxygen dependent COPD, anticoagulation for paroxysmal atrial fibrillation and a history of DVT. Has history of chronic A-fib takes aspirin Plavix and Eliquis. I am uncertain why she is on dual antiplatelet therapy, has a history of nonobstructive CAD, last cardiac catheterization 2 to 3 years ago was with normal coronaries. She has a recent history of melanotic schools for which she underwent EGD and colonoscopy which found a polyp. Pathology showed adenoma for which she has been referred to [place]. Additionally was noted some gastritis on the EGD. The melena appears to have since resolved. Her hemoglobin as checked on the 13th of this month was around 6.5. She does not recall having had any blood transfusions. She presents today with progressively increasing fatigue and dyspnea. Hemoglobin continues to be at 6.6 today and is likely contributing to her symptoms. She has chronic lower extremity edema but does not appear to be worse than at baseline. Hospital Course Hospital Course Patient was admitted to the hospital further evaluation and management of tiredness and fatigue in setting of severe anemia due to recent GI bleed. Infectious causes were ruled out with a normal white count, no dysuria, no consolidation on chest imaging. She received 2 unit of blood transfusion. There was concern for polypharmacy during hospitalization. Her home medications were reconciled. Patient symptoms of fatigue and tiredness resolved after blood transfusion and her shortness of breath also resolved. She remained stable on her baseline oxygen supplementation. She has been discharged in hemodynamically stable condition back home with advised to follow-up with a primary care provider within next 1 week for repeat CBC. Physical Exam Narrative: General: No acute distress, AO x3 HEENT: PERRLA, pupils bilaterally equal and reactive, pallors not present Chest: Normal vesicular breath sounds, no added sounds, equal good air entry bilaterally CVS: S1-S2 regular, no murmurs, no tachycardia, no gallops, no rubs Abdomen: Soft, nontender, no organomegaly, bowel sounds present Neuro: No focal deficits, no facial deformity, AO x3, power 5/5 in all limbs Extremities: B/L LE edema and shallow ulcers, stasis dermatitis ,patient reports unchanged over baseline. Discharge Data Studies Completed and Pending Completed Studies During Hospitalization Category Date Time Status XR chest 1V portable [id number] Stat Exams 03/29/24 23:57 Completed Pending at discharge Category Date Time Status Respiratory Panel 2 Routine Lab 03/31/24 12:55 Received Radiology Impressions Chest X-Ray 03/29/24 23:57 IMPRESSION: Cardiomegaly with central vascular prominence Laboratory Results WBC 9.07 10^3/uL (3.29-11.43) 03/31/24 04:40 RBC 3.87 10^6/uL (3.85-5.65) 03/31/24 04:40 Hgb 8.20 g/dL (11.27-16.99) L 03/31/24 04:40 Hct 29.7 % (36-47) L 03/31/24 04:40 MCV 76.7 fl (85-98) L 03/31/24 04:40 MCH 21.2 pg (27-33) L 03/31/24 04:40 MCHC 27.6 g/dL (30-55) L 03/31/24 04:40 RDW 17.2 % (12.1-15.1) H 03/31/24 04:40 Plt Count 165 10^3/cmm (157-399) 03/31/24 04:40 MPV 11.2 fL (7.4-10.4) H 03/31/24 04:40 Neut % (Auto) 68.1 % 03/31/24 04:40 Lymph % (Auto) 19.7 % 03/31/24 04:40 [place] % (Auto) 9.8 % 03/31/24 04:40 Eos % (Auto) 1.9 % 03/31/24 04:40 Baso % (Auto) 0.4 % 03/31/24 04:40 Neut # (Auto) 6.17 10^3/uL (1.8-7.7) 03/31/24 04:40 Lymph # (Auto) 1.8 10^3/uL (0.8-4.8) 03/31/24 04:40 [place] # (Auto) 0.9 10^3/uL (0.2-0.9) 03/31/24 04:40 Eos # (Auto) 0.2 10^3/uL (0.0-0.8) 03/31/24 04:40 Baso # (Auto) 0.0 10^3/uL (0.0-0.1) 03/31/24 04:40 Nucleated RBC % (auto) 0 % 03/31/24 04:40 Nucleated RBCs # 0.0 /100WBC 03/31/24 04:40 Specimen Type Arterial 03/30/24 00:14 Sample Site Radial, right 03/30/24 00:14 ABG pH 7.37 (7.35-7.45) 03/30/24 00:14 ABG pCO2 41.7 mmHg (35-45) 03/30/24 00:14 ABG pO2 118.0 mmHg (80.0-100.0) H 03/30/24 00:14 ABG PO2/FiO2 Ratio 368 03/30/24 00:14 ABG HCO3 24.3 mmol/L (22-26) 03/30/24 00:14 ABG O2 Saturation 98.7 03/30/24 00:14 ABG Base Excess -0.9 mmol/L (-2.0-2.0) 03/30/24 00:14 Robert Test Pos 03/30/24 00:14 A-a O2 Gradient 7.7 mmHg (5-10) 03/30/24 00:14 Hematocrit 21.0 % (37-47) L 03/30/24 00:14 Hgb O2 Saturation 95.9 % (95-100) 03/30/24 00:14 Carboxyhemoglobin 1.0 %THgb (0.4-20.1) 03/30/24 00:14 Methemoglobin 1.8 % (0.4-1.5) H 03/30/24 00:14 Total Hemoglobin 6.9 g/dL (12-16) L 03/30/24 00:14 Sodium 143.0 mmol/L (131-143) 03/30/24 00:14 Potassium 4.1 mmol/L (3.5-5.0) 03/30/24 00:14 Glucose 114.0 mg/dL (70-115) 03/30/24 00:14 Ionized Calcium 1.2 mmol/L (1.1-1.4) 03/30/24 00:14 O2 Delivery Device Nc 03/30/24 00:14 O2 Liters/Min 3.0 % 03/30/24 00:14 FiO2 32.0 % 03/30/24 00:14 Manager Lan ID Ed 03/30/24 00:14 Sodium 142 mmol/L (136-145) 03/31/24 04:40 Potassium 3.9 mmol/L (3.5-5.1) 03/31/24 04:40 Chloride 104 mmol/L (98-107) 03/31/24 04:40 Carbon Dioxide 26 mmol/L (22-29) 03/31/24 04:40 Anion Gap 15.9 (5-19) 03/31/24 04:40 BUN 20 mg/dL (8-23) 03/31/24 04:40 Creatinine 1.1 mg/dL (0.5-0.9) H 03/31/24 04:40 GFR Calculation 49.7 mL/min (90-130) L 03/31/24 04:40 Glucose 109 mg/dL (65-115) 03/31/24 04:40 POC Glucose 180 mg/dL (70-110) H 03/31/24 11:47 Calculated Osmolality 297 mOsm/kg (285-295) H 03/31/24 04:40 Lactic Acid 3.2 mmol/L (0.5-2.2) H 03/30/24 01:06 Lactic Acid (Sepsis) 2.3 mmol/L (0.5-2.2) H 03/30/24 07:47 Calcium 8.7 mg/dL (8.5-10.5) 03/31/24 04:40 Total Bilirubin 0.7 mg/dL (0.15-1.2) 03/31/24 04:40 AST 23 U/L (0-32) 03/31/24 04:40 ALT 9 U/L (0-33) 03/31/24 04:40 Alkaline Phosphatase 127 U/L (35-105) H 03/31/24 04:40 Troponin T Baseline 38 ng/L (0-10) H 03/30/24 01:06 Troponin T Hi Sens 6Hr 34.84 ng/L (0-10) H 03/30/24 07:47 Troponin T Hi Sens 6Hr Delta -3.16 ng/L (0-12) L 03/30/24 07:47 NT-Pro-B Natriuret Pep 3016 pg/mL (0-125) H 03/30/24 01:06 Total Protein 7.2 g/dL (6.6-8.7) 03/31/24 04:40 Albumin 3.7 g/dL (3.5-5.2) 03/31/24 04:40 Globulin 3.5 g/dL (1.3-4.6) 03/31/24 04:40 Urine Color Yellow (Yellow) 03/31/24 13:02 Urine Appearance Cloudy (CLEAR) A 03/31/24 13:02 Urine pH 5.0 (5-7) 03/31/24 13:02 Ur Specific [place] 1.011 (1.005-1.030) 03/31/24 13:02 Urine Protein 1+ (Negative) A 03/31/24 13:02 Urine Glucose (UA) Negative (Normal) 03/31/24 13:02 Urine Ketones Negative (Negative) 03/31/24 13:02 Urine Blood Negative (Negative) 03/31/24 13:02 Urine Nitrate Positive (Negative) A 03/31/24 13:02 Urine Bilirubin Negative (Negative) 03/31/24 13:02 Urine Urobilinogen 1.0 mg/dL (Negative) 03/31/24 13:02 Ur Leukocyte Esterase Negative (Negative) 03/31/24 13:02 Urine RBC 0-2 /hpf (0-2) 03/31/24 13:02 Urine WBC 0-5 /hpf (0-5) 03/31/24 13:02 Ur Squamous Epith Cells 6-10 /hpf (0-5) 03/31/24 13:02 Amorphous Sediment Not Reportable 03/31/24 13:02 Urine Bacteria 4+ /hpf (NONE) H 03/31/24 13:02 Hyaline Casts 20.27 /lpf 03/31/24 13:02 Coronavirus (PCR) Negative (Negative) 03/30/24 00:13 Influenza A (PCR) Negative (Negative) 03/30/24 00:13 Influenza Type B (PCR) Negative (Negative) 03/30/24 00:13 RSV (PCR) Negative (Negative) 03/30/24 00:13 Blood Type A Positive 03/30/24 01:37 Rho(D) Type Rh positive 03/30/24 01:37 Antibody Screen Negative 03/30/24 01:37 Crossmatch See Detail 03/30/24 01:37 Vitals Last Vital Signs Temp 98.0 F 03/31/24 11:45 Pulse 71 03/31/24 11:45 Resp 17 03/31/24 11:45 BP 117/55 03/31/24 11:45 Pulse Ox 95 03/31/24 11:45 O2 Del Method Nasal Cannula 03/31/24 11:45 O2 Flow Rate 2 03/31/24 11:45 Discharge Plan Discharge Patient Disposition: Home Condition: Stable Prescriptions: New Jardiance 10 mg tablet 10 mg PO DAILY Qty: 30 0RF ferrous gluconate 324 mg (37.5 mg iron) tablet 324 mg PO BID Qty: 60 3RF Continued insulin aspart U-100 [Novolog FlexPen U-100 Insulin] 100 unit/mL (3 mL) insulin pen 14 unit SUBCUT TID Qty: 15 3RF Rx Instructions: May substitute for formulary aspirin [Adult Aspirin Regimen] 81 mg tablet,delayed release (DR/EC) 81 mg PO DAILY Hold Instructions: bleeding Eliquis 5 mg tablet 5 mg PO BID 30 Days Qty: 60 5RF Hold Instructions: Resume on 11/21/23. atorvastatin 40 mg tablet 40 mg PO DAILY Qty: 90 2RF metoprolol tartrate 100 mg tablet 150 mg PO Q12H 90 Days Qty: 270 1RF sucralfate [Carafate] 1 gram tablet 1 g PO BID Qty: 60 2RF nitroglycerin 0.4 mg tablet, sublingual 0.4 mg SUBLINGUAL Q5M PRN (Reason: Chest Pain) Qty: 25 2RF lactulose 10 gram/15 mL syrup 10 g PO BID risperidone 0.25 mg tablet 0.25 mg PO .qhs Qty: 30 3RF Hold Instructions: see pcp loratadine [Allergy Relief (loratadine)] 10 mg tablet 10 mg PO DAILY Qty: 90 0RF pregabalin 75 mg capsule 75 mg PO BID 30 Days Qty: 60 3RF furosemide 40 mg tablet 80 mg PO BID Qty: 120 5RF Rx Instructions: 2 in AM, 2 @ noon albuterol sulfate 90 mcg/actuation HFA aerosol inhaler 2 puff INHALATION Q6H PRN (Reason: shortness of breath or wheezing) Qty: 8.5 5RF albuterol sulfate 2.5 mg /3 mL (0.083 %) solution for nebulization 2.5 mg inhalation Q6H Qty: 150 1RF famotidine 20 mg tablet 20 mg PO BID 90 Days Qty: 180 1RF potassium chloride 20 mEq tablet,ER particles/crystals 20 meq PO BID PRN (Reason: with lasix only) 90 Days Qty: 180 1RF (DME[place] [facility] [place] .MEDSUPPLY Qty: 1 0RF Rx Instructions: As directed budesonide 1 mg/2 mL suspension for nebulization 0.5 mg inhalation BID Qty: 60 1RF (DME) Dexcom G7 Calculator Operator Misc See Rx Instructions .Route Qty: 1 0RF Rx Instructions: As directed (DME) pen needle, diabetic [BD Ultra-Fine Short Pen Needle] 31 gauge x 5/16 needle See Rx Instructions .ROUTE .COMPLEX Qty: 100 2RF Dose Instruction: TO USE WITH INSULIN 4 TIMES DAILY Rx Instructions: TO USE WITH INSULIN 4 TIMES DAILY (DME) Dexcom G7 Sensor Device See Rx Instructions .ROUTE .COMPLEX Qty: 1 3RF Dose Instruction: USE TO MONITOR BLOOD SUGAR DIRECTED BY DOCTOR CHANGE SENSOR EVERY 10 DAYS Rx Instructions: USE TO MONITOR BLOOD SUGAR DIRECTED BY DOCTOR CHANGE SENSOR EVERY 10 DAYS (DME) Depend [employer] For [employer] XL [facility] [place] Instructions .Route Qty: 360 11RF Rx Instructions: As directed, 12 daily T4528 diltiazem HCl [Cardizem LA] 360 mg tablet extended release 24 hr 360 mg PO DAILY Qty: 30 5RF Hold Instructions: Home Medication placed on hold at Doctor's office pantoprazole [Protonix] 40 mg tablet,delayed release (DR/EC) 40 mg PO BID 56 Days Qty: 112 3RF pramipexole 0.5 mg tablet 0.5 mg PO BEDTIME Rx Instructions: TAKE ONE TABLET BY MOUTH AT BEDTIME FOR 90 DAYS docusate sodium 100 mg capsule 200 mg PO BID Rx Instructions: TAKE TWO CAPSULES BY MOUTH TWICE A DAY cholecalciferol (vitamin D3) 1,250 mcg (50,000 unit) capsule 1,250 mcg PO .WEEKLY Rx Instructions: TAKE ONE CAPSULE BY MOUTH WEEKLY ON MONDAYS NEED VITAMIN D LEVEL BEFORE NEXT DR VISIT insulin glargine [Lantus Solostar U-100 Insulin] 100 unit/mL (3 mL) insulin pen 35 unit SUBCUT DAILY Discontinued clopidogrel [Plavix] 75 mg tablet 75 mg PO DAILY diltiazem HCl 180 mg capsule,extended release 24 hr 180 mg PO QAM metformin 1,000 mg tablet 1,000 mg PO BID Rx Instructions: TAKE ONE TABLET BY MOUTH TWICE A DAY FOR 90 DAYS Discharge Orders: Discharge Order (Routine); Ordered 03/31/24 Ordered By: Bladimir Oconnor Referrals: Kristine Rodriguez MD [Primary Care Provider] - (We have notified your physician's clinic of the need for a follow-up appointment to be scheduled. If you have not heard from them within the next 2 business days, please call them directly. ) Discharge Diet: Cardiac and Diabetic Discharge Activity: Resume usual activity and Increase activity as tolerated Patient Instructions: Opioid Safety, Pain Management Activity Restrictions/Additional Instructions: Going forward do not take Plavix. Only take aspirin and Eliquis. Do not take metformin instead take Jardiance daily. Take metoprolol at home dose of 150 mg twice daily along with Cardizem 360 mg 1 time a day only. Take ferrous sulfate twice daily. Follow-up with a primary care provider within next 1 week for repeat CBC. Discharge Attestations Time Spent in Discharge Care*: greater than 30 min Specific Discharge Activities: educating patient, discussing with pcp/other providers, discussing with heel caser/social workers/dc planners, documenting/other paperwork and evaluating patient/reviewing data Status at Discharge: Cognitive status at discharge: cognitively intact, Behavioral status at discharge: cooperative, Functional status at discharge: other assisted ambulation, Overall status at discharge: patient is back to baseline Quality Metrics Clinical Quality Measures [ No reported AMI, CVA or VTE this stay] Coding Level of Care Code 95230 Total time (in minutes) for Discharge: 60 Diagnoses Severe anemia D64.9 Chronic anticoagulation Z79.01 Atrial fibrillation I48.91
[2024-03-31 15:01] LABS: Adenovirus Not Detected (NOT DETECT); Chlamydia Pneumoniae Not Detected (NOT DETECT); Coronavirus 229E,HKU1,NL63,OC4 Not Detected (NOT DETECT); Human Metapneumovirus Not Detected (NOT DETECT); Human Rhinovirus/Enterovirus Not Detected (NOT DETECT); Influenza A Not Detected (NOT DETECT); Influenza A H1 Not Detected (NOT DETECT); Influenza A H1-2009 Not Detected (NOT DETECT); Influenza A H3 Not Detected (NOT DETECT); Influenza B Not Detected (NOT DETECT); Mycoplasma Pneumoniae Not Detected (NOT DETECT); Parainfluenza Virus Type 1 Not Detected (NOT DETECT); Parainfluenza Virus Type 2 Not Detected (NOT DETECT); Parainfluenza Virus Type 3 Not Detected (NOT DETECT); Parainfluenza Virus Type 4 Not Detected (NOT DETECT); Respiratory Syncytial Virus A Not Detected (NOT DETECT); Respiratory Syncytial Virus B Not Detected (NOT DETECT); SARS-COV-2 Not Detected (NOT DETECT)
== END 2024-03-31 15:55 | disposition home or self-care (01) ==
LOC: ER 03-30 02:06 → MEDSURG 03-30 03:31
PROVIDERS: Admitting Provider Student in an Organized Health Care Education/Training Program; Emergency Provider Emergency Medicine; PCP Family Medicine; Visit Provider Student in an Organized Health Care Education/Training Program
DX: D64.9 Anemia, unspecified (principal); I48.0 Paroxysmal atrial fibrillation; Z79.01 Long term (current) use of anticoagulants; I73.9 Peripheral vascular disease, unspecified; E66.01 Morbid (severe) obesity due to excess calories; Z68.43 Body mass index [BMI] 50.0-59.9, adult; J44.9 Chronic obstructive pulmonary disease, unspecified; Z99.81 Dependence on supplemental oxygen; Z86.718 Personal history of other venous thrombosis and embolism; Z79.02 Long term (current) use of antithrombotics/antiplatelets; Z79.82 Long term (current) use of aspirin; I25.10 Atherosclerotic heart disease of native coronary artery without angina pectoris; Z99.3 Dependence on wheelchair; K21.9 Gastro-esophageal reflux disease without esophagitis; Z79.84 Long term (current) use of oral hypoglycemic drugs; E78.5 Hyperlipidemia, unspecified; G47.33 Obstructive sleep apnea (adult) (pediatric); Z99.89 Dependence on other enabling machines and devices; E11.622 Type 2 diabetes mellitus with other skin ulcer
CPT/HCPCS: 0241U; 36415; 36416; 36430; 36600; 71045; 80051; 80053; 81001; 82330; 82805; 82962; 83605; 83880; 84484; 85014; 85018; 85025; 86850; 86900; 86920; 87486; 87581; 87633; 93005; 94640; 96372; 99285; G0378; J1815; J7613; J7626; P9016; P9040

== ENCOUNTER 2024-04-09 10:55 | Emergency (ER) | payer MEDICARE, MEDICAID, SELFPAY ==
[2024-03-15 13:57] VITALS: BP 121/48; BMI 48.4
[2024-04-09 10:56] VITALS: BP 149/56; PULSE 61; RESP 24; TEMP 36.8; O2SAT 97; BMI 51.5
--- NOTE | 2024-04-09 10:57 | XR_ITS ---
WS: [id number] Exam: XR chest 1V portable [id number] Date/Time of Exam: 04/09/2024 10:58 AM Reason For Exam: sob Comparison 03/30/2024. The lungs are fully expanded and clear. Heart size top limits normal. No pleural effusion. Bony struc tures are intact. The mediastinum is normal in contour. XR/XR chest 1V portable [id number] IMPRESSION: 1. No acute cardiopulmonary finding.
--- NOTE | 2024-04-09 11:02 | ECG_ITS ---
[email or web address] Test Date: 2024-04-09 Pat Name: Lin Henao Department: Room: Gender: Female [employer]oth Seconds Sorter: : 1955 Requested By: Claudia Ram Order Number: [id number] Reading MD: BIJAL PARK Measurements Intervals [place] Rate: 67 P: -88 DE: 116 QRS: -15 QRSD: 89 T: -2 QT: 407 QTc: 431 Interpretive Statements JUNCTIONAL RHYTHM LOW QRS VOLTAGE IN PRECORDIAL LEADS [QRS DEFLECTION < 1.0 mV IN CHEST LEADS] POSSIBLE ANTERIOR MYOCARDIAL INFARCTION , OF INDETERMINATE AGE [30 ms Q WAVE IN V3/V4, OR R < 0.2 mV IN V4] Compared to ECG 03/30/2024 00:18:04 Junctional rhythm now present Atrial fibrillation no longer present Myocardial infarct finding still present Electronically Signed On 04-09-2024 16:07:07 CONSUMER MARKETING MANAGER by BIJAL PARK [email or web address]
--- NOTE | 2024-04-09 11:07 | W.ED.SOB ---
HPI - SOB/Dyspnea General: Chief Complaint: Shortness of Breath/Dyspnea Stated Complaint: sob, chf Time Seen by Provider: 04/09/24 10:57 Source: patient Mode of arrival: ambulatory Limitations: no limitations History of Present Illness: HPI Narrative: 68-year-old female history of obesity along with congestive heart failure COPD states she has been having increasing shortness of breath over the last 2 to 3 days. She wears oxygen at home as needed patient's pulse ox here is 98% on room air. States she has had increased swelling to her lower extremities. Denies any fevers. Associated symptoms: Deny abdominal pain, chest pain, fever(s), nausea or vomiting Related Data Home Medications Medication Instructions Recorded Confirmed aspirin 81 mg tablet,delayed 81 mg PO DAILY 11/18/23 04/05/24 release (Adult Aspirin Regimen) lactulose 10 gram/15 mL oral syrup 10 g PO BID 02/23/24 04/05/24 docusate sodium 100 mg capsule 200 mg PO BID 03/07/24 04/05/24 insulin glargine 100 unit/mL (3 35 unit SUBCUT DAILY 03/07/24 04/05/24 mL) subcutaneous pen (Lantus Solostar U-100 Insulin) pramipexole 0.5 mg tablet 0.5 mg PO BEDTIME 03/07/24 04/05/24 Previous Rx's Medication Instructions Recorded nitroglycerin 0.4 mg sublingual 0.4 mg sublingual Q5M PRN Chest 04/15/22 tablet Pain #25 tabs blood-glucose meter,continuous #1 ea 02/08/23 (Dexcom G7 Group Burner Machine) diltiazem HCl 360 mg 360 mg PO DAILY #30 tabs 10/31/23 tablet,extended release 24 hr (Cardizem LA) pantoprazole 40 mg tablet,delayed 40 mg PO BID 8 weeks #112 tabs 10/31/23 release (Protonix) apixaban 5 mg tablet (Eliquis) 5 mg PO BID 30 days #60 tabs 12/06/23 atorvastatin 40 mg tablet 40 mg PO DAILY #90 tabs 12/06/23 metoprolol tartrate 100 mg tablet 150 mg (1.5 x 100 mg) PO Q12H 90 12/06/23 days #270 tabs insulin aspart U-100 100 unit/mL 14 unit (0.14 mL) SUBCUT TID #15 mL 12/28/23 (3 mL) subcutaneous pen (Novolog FlexPen U-100 Insulin aspart) loratadine 10 mg tablet (Allergy 10 mg PO DAILY #90 tabs 12/28/23 Relief (loratadine)) sucralfate 1 gram tablet (Carafate) 1 g PO BID #60 tabs 02/06/24 risperidone 0.25 mg tablet 0.25 mg PO .qhs #30 tabs 02/23/24 blood-glucose sensor (Dexcom G7 #1 ea 02/27/24 Sensor device) budesonide 1 mg/2 mL suspension 0.5 mg inhalation BID #60 mL 03/14/24 for nebulization nebulizers #1 ea 03/14/24 diaper,brief,adult,disposable #360 ea 03/25/24 (Depend Underwear For Women XL) albuterol sulfate 2.5 mg/3 mL 2.5 mg (3 mL) inhalation Q6H #150 03/27/24 (0.083 %) solution for nebulization vials albuterol sulfate 90 mcg/actuation 2 puff inhalation Q6H PRN 03/27/24 aerosol inhaler shortness of breath or wheezing #8.5 grams famotidine 20 mg tablet 20 mg PO BID 90 days #180 tabs 03/27/24 furosemide 40 mg tablet 80 mg (2 x 40 mg) PO BID weight 03/27/24 gain or shortness breath #120 tabs potassium chloride 20 mEq 20 meq PO BID PRN with lasix only 03/27/24 tablet,extended release(part/cryst) 90 days #180 tabs pregabalin 75 mg capsule 75 mg PO BID 30 days #60 caps 03/27/24 ferrous gluconate 324 mg (37.5 mg 324 mg PO BID #60 tabs 03/31/24 iron) tablet pen needle, diabetic 31 gauge x #100 ea 04/03/2409/14 (BD Ultra-Fine Short Pen Needle) cholecalciferol (vitamin D3) 1,250 See Rx Instructions .Route 04/04/24 mcg (50,000 unit) capsule .COMPLEX #4 caps empagliflozin 10 mg tablet 10 mg PO DAILY 30 days #30 tabs 04/05/24 (Jardiance) Allergies Allergy/AdvReac Type Severity Reaction Status Date / Time propoxyphene [From Darvon] Allergy Unknown Unknown Verified 04/05/24 10:57 fluoxetine [From Prozac] AdvReac Severe ADR-Halluci Verified 04/05/24 10:57 duke Review of Systems Const: Denies: fever(s), chills, body aches or change in appetite ENMT: Denies: throat pain or dental pain Card: Denies: chest pain Resp: Reports: dyspnea GI: Denies: abdominal pain, nausea, vomiting or diarrhea Musc: Reports: extremity swelling; Denies: neck pain or back pain Skin/Breast: Denies: rash Neuro: Denies: headache(s) PFSH ED PFSH: Medical History Smoking Chronic anticoagulation initiated apixaban 08/2020 for paroxysmal atrial fibrillation Hypertension, benign Paroxysmal atrial fibrillation (~08/2020) Congestive heart failure Encephalopathy acute Polypharmacy Atrial flutter Tachy-andra syndrome Acute anemia Rotator cuff dysfunction Smoking addiction Insomnia Wheelchair bound Oxygen dependent 2 L at home Small bowel obstruction History of colonic diverticulitis Paroxysmal SVT (supraventricular tachycardia) Nicotine dependence, cigarettes, with other nicotine-induced disorders DM type 2 (diabetes mellitus, type 2) Chest pain Atypical chest pain Paroxysmal A-fib NONA (obstructive sleep apnea) Uses CPAP Fibromyalgia Peripheral Vascular Disease Mixed stress and urge urinary incontinence Chronic pain syndrome Due to her weight and other comorbidities I do not think that there is much that pain management would be able to do. They can do localized injections or treatments on specific joints but she would never be a surgical candidate. Bipolar depression Overactive bladder RLS (restless legs syndrome) Constipation, chronic COPD (chronic obstructive pulmonary disease) GERD (gastroesophageal reflux disease) CAD (coronary artery disease) Diabetes mellitus type 2 in obese Hyperlipemia Chronic headache Panic disorder [episodic paroxysmal anxiety] Generalized anxiety disorder Major depressive disorder, recurrent, moderate Surgical History H/O: hysterectomy Hx of cholecystectomy S/P appendectomy H/O thyroidectomy Family History Mother , at age 75 Hypertension Father , at age 87 Hypertension Denies family history of Lung disease Stroke Social History Smoking and tobacco/nicotine status: never used tobacco/nicotine Alcohol intake: never Substance/Drug Use: never Adopted: No Caregiver/support person: No Lives independently: Yes Household members: none Housing: Apartment Marital status: / Number of children: 8 Number of grandchildren: 14 Highest education level completed: Some College, No Degree service: No Current occupational status: disabled Pets and animals: Yes Pets & animals: dog(s) Leisure activites: art, music, reading and other Sexually active: No Do you think of yourself as: Straight/Heterosexual Current gender identity: Female Lilliam/Latter-Day: Oriental Orthodox Special lilliam needs: No Agree to transfusion: Yes Female Reproductive History: Para: 8 Spontaneous abortions: No Physical Exam Const: COMMON NORMALS: patient oriented x3 HENMT: COMMON NORMALS: normocephalic and atraumatic HEAD & SCALP: normocephalic and atraumatic Eye: COMMON NORMALS: Equal, round and reactive pupils present and EOMs intact bilaterally PUPIL: Yes Equal, round and reactive pupils present Neck/C-Spine: COMMON NORMALS: full ROM and supple Chest: COMMONS NORMALS: normal inspection of the chest Resp: COMMON NORMALS: normal respiratory effort, No retractions, No use of accessory muscles and clear to auscultation bilaterally AUSCULTATION: clear to auscultation bilaterally Cardio: COMMON NORMALS: regular rate, regular rhythm and No murmurs present (Cardio) RATE: regular rate RHYTHM: regular rhythm GI: COMMON NORMALS: Normal to inspection, nondistended, normoactive bowel sounds present, Soft to palpation, non-tender and no masses PALPATION: Yes Soft to palpation Extremity: COMMON NORMALS: full ROM NARRATIVE EXTREMITY EXAM: lower ext edema Neuro: COMMON NORMALS: patient oriented x3, moves all extremities and no focal motor deficits Psych: COMMON NORMALS: mental status grossly normal, Normal thought process present and cooperative THOUGHT PROCESS: Normal thought process present Skin: COMMON NORMALS: no rashes or lesions noted and no wounds GENERAL SKIN EXAM: no rashes or lesions noted Course Vital Signs: Vital signs: Vital Signs Temperature 98.2 F 04/09/24 10:56 Pulse Rate 64 04/09/24 12:00 Respiratory Rate 24 H 04/09/24 11:16 Blood Pressure 141/49 04/09/24 12:00 Pulse Oximetry 94 12/09/24 12:00 Oxygen Delivery Me thod Nasal Cannula 04/09/24 12:00 Oxygen Flow Rate 3 04/09/24 12:00 MDM - SOB/Dyspnea Medical Decision Making Patient presents here with lower extremity edema from her CHF patient's pulse ox here has been normal x-ray shows no pulm edema did give her an IV dose of Lasix she is stable for discharge follow-up PCP return if worsening. Medical Records I reviewed the patient's medical records. Lab Data I reviewed the patient's lab results. 04/09/24 11:10 04/09/24 11:10 Labs/Radiology: Radiology Impressions Chest X-Ray 04/09/24 10:57 IMPRESSION: 1. No acute cardiopulmonary finding. Laboratory Results WBC 8.97 10^3/uL (3.29-11.43) 04/09/24 11:10 RBC 4.04 10^6/uL (3.85-5.65) 04/09/24 11:10 Hgb 8.70 g/dL (11.27-16.99) L 04/09/24 11:10 Hct 31.0 % (36-47) L 04/09/24 11:10 MCV 76.7 fl (85-98) L 04/09/24 11:10 MCH 21.5 pg (27-33) L 04/09/24 11:10 MCHC 28.1 g/dL (30-55) L 04/09/24 11:10 RDW 20.5 % (12.1-15.1) H 04/09/24 11:10 Plt Count 184 10^3/cmm (157-399) 04/09/24 11:10 MPV 12.1 fL (7.4-10.4) H 04/09/24 11:10 Neut % (Auto) 70.8 % 04/09/24 11:10 Lymph % (Auto) 16.1 % 04/09/24 11:10 [place] % (Auto) 12.0 % 04/09/24 11:10 Eos % (Auto) 0.6 % 04/09/24 11:10 Baso % (Auto) 0.3 % 04/09/24 11:10 Neut # (Auto) 6.35 10^3/uL (1.8-7.7) 04/09/24 11:10 Lymph # (Auto) 1.4 10^3/uL (0.8-4.8) 04/09/24 11:10 [place] # (Auto) 1.1 10^3/uL (0.2-0.9) H 04/09/24 11:10 Eos # (Auto) 0.1 10^3/uL (0.0-0.8) 04/09/24 11:10 Baso # (Auto) 0.0 10^3/uL (0.0-0.1) 04/09/24 11:10 Nucleated RBC % (auto) 0 % 04/09/24 11:10 Nucleated RBCs # 0.0 /100WBC 04/09/24 11:10 Sodium 143 mmol/L (136-145) 04/09/24 11:10 Potassium 3.6 mmol/L (3.5-5.1) 04/09/24 11:10 Chloride 105 mmol/L (98-107) 04/09/24 11:10 Carbon Dioxide 27 mmol/L (22-29) 04/09/24 11:10 Anion Gap 14.6 (5-19) 04/09/24 11:10 BUN 11 mg/dL (8-23) 04/09/24 11:10 Creatinine 1.1 mg/dL (0.5-0.9) H 04/09/24 11:10 GFR Calculation 49.7 mL/min (90-130) L 04/09/24 11:10 Glucose 156 mg/dL (65-115) H 04/09/24 11:10 Calculated Osmolality 299 mOsm/kg (285-295) H 04/09/24 11:10 Calcium 8.5 mg/dL (8.5-10.5) 04/09/24 11:10 Total Bilirubin 0.7 mg/dL (0.15-1.2) 04/09/24 11:10 AST 32 U/L (0-32) 04/09/24 11:10 ALT 9 U/L (0-33) 04/09/24 11:10 Alkaline Phosphatase 154 U/L (35-105) H 04/09/24 11:10 NT-Pro-B Natriuret Pep 1755 pg/mL (0-125) H 04/09/24 11:10 Total Protein 6.9 g/dL (6.6-8.7) 04/09/24 11:10 Albumin 3.6 g/dL (3.5-5.2) 04/09/24 11:10 Globulin 3.3 g/dL (1.3-4.6) 04/09/24 11:10 All radiology interpretation(s) finalized by discharge EKG Data EKG 1: I personally reviewed and interpreted this EKG as follows: EKG Interpretation Date: 04/09/24 EKG interpretation time: 11:02 Interpretation: nsr hr [address] elevation qrs 89 qtc 422 Discharge Plan Discharge Patient Disposition: Home Clinical Impression: Bilateral lower extremity edema Condition: Stable Prescriptions: No Action insulin aspart U-100 [Novolog FlexPen U-100 Insulin] 100 unit/mL (3 mL) insulin pen 14 unit SUBCUT TID Qty: 15 3RF Rx Instructions: May substitute for formulary aspirin [Adult Aspirin Regimen] 81 mg tablet,delayed release (DR/EC) 81 mg PO DAILY Hold Instructions: bleeding Eliquis 5 mg tablet 5 mg PO BID 30 Days Qty: 60 5RF Hold Instructions: Resume on 11/21/23. atorvastatin 40 mg tablet 40 mg PO DAILY Qty: 90 2RF metoprolol tartrate 100 mg tablet 150 mg PO Q12H 90 Days Qty: 270 1RF sucralfate [Carafate] 1 gram tablet 1 g PO BID Qty: 60 2RF nitroglycerin 0.4 mg tablet, sublingual 0.4 mg SUBLINGUAL Q5M PRN (Reason: Chest Pain) Qty: 25 2RF lactulose 10 gram/15 mL syrup 10 g PO BID risperidone 0.25 mg tablet 0.25 mg PO .qhs Qty: 30 3RF Hold Instructions: see pcp loratadine [Allergy Relief (loratadine)] 10 mg tablet 10 mg PO DAILY Qty: 90 0RF pregabalin 75 mg capsule 75 mg PO BID 30 Days Qty: 60 3RF furosemide 40 mg tablet 80 mg PO BID Qty: 120 5RF Rx Instructions: 2 in AM, 2 @ noon albuterol sulfate 90 mcg/actuation HFA aerosol inhaler 2 puff INHALATION Q6H PRN (Reason: shortness of breath or wheezing) Qty: 8.5 5RF albuterol sulfate 2.5 mg /3 mL (0.083 %) solution for nebulization 2.5 mg inhalation Q6H Qty: 150 1RF famotidine 20 mg tablet 20 mg PO BID 90 Days Qty: 180 1RF potassium chloride 20 mEq tablet,ER particles/crystals 20 meq PO BID PRN (Reason: with lasix only) 90 Days Qty: 180 1RF (DME) nebulizers Misc See Rx Instructions .MEDSUPPLY Qty: 1 0RF Rx Instructions: As directed budesonide 1 mg/2 mL suspension for nebulization 0.5 mg inhalation BID Qty: 60 1RF Jardiance 10 mg tablet 10 mg PO DAILY 30 Days Qty: 30 5RF (DME) Dexcom G7 Group Burner Machine Misc See Rx Instructions .Route Qty: 1 0RF Rx Instructions: As directed (DME) Dexcom G7 Sensor Device See Rx Instructions .ROUTE .COMPLEX Qty: 1 3RF Dose Instruction: USE TO MONITOR BLOOD SUGAR DIRECTED BY DOCTOR CHANGE SENSOR EVERY 10 DAYS Rx Instructions: USE TO MONITOR BLOOD SUGAR DIRECTED BY DOCTOR CHANGE SENSOR EVERY 10 DAYS (DME) Depend Underwear For Women XL Misc See Rx Instructions .Route Qty: 360 11RF Rx Instructions: As directed, 12 daily T4528 (DME) pen needle, diabetic [BD Ultra-Fine Short Pen Needle] 31 gauge x 5/16 needle See Rx Instructions .ROUTE .COMPLEX Qty: 100 2RF Dose Instruction: TO USE WITH INSULIN 4 TIMES DAILY Rx Instructions: TO USE WITH INSULIN 4 TIMES DAILY cholecalciferol (vitamin D3) 1,250 mcg (50,000 unit) capsule See Rx Instructions .ROUTE .COMPLEX Qty: 4 0RF Dose Instruction: TAKE ONE CAPSULE BY MOUTH WEEKLY ON MONDAYS NEED VITAMIN D LEVEL BEFORE NEXT DR VISIT Rx Instructions: TAKE ONE CAPSULE BY MOUTH WEEKLY ON MONDAYS NEED VITAMIN D LEVEL BEFORE NEXT DR VISIT diltiazem HCl [Cardizem LA] 360 mg tablet extended release 24 hr 360 mg PO DAILY Qty: 30 5RF Hold Instructions: Home Medication placed on hold at Doctor's office pantoprazole [Protonix] 40 mg tablet,delayed release (DR/EC) 40 mg PO BID 56 Days Qty: 112 3RF pramipexole 0.5 mg tablet 0.5 mg PO BEDTIME Rx Instructions: TAKE ONE TABLET BY MOUTH AT BEDTIME FOR 90 DAYS docusate sodium 100 mg capsule 200 mg PO BID Rx Instructions: TAKE TWO CAPSULES BY MOUTH TWICE A DAY insulin glargine [Lantus Solostar U-100 Insulin] 100 unit/mL (3 mL) insulin pen 35 unit SUBCUT DAILY ferrous gluconate 324 mg (37.5 mg iron) tablet 324 mg PO BID Qty: 60 3RF Discharge Orders: Discharge ED (Routine); Ordered 04/09/24 Ordered By: Claudia Ram Referrals: Kristine Rodriguez MD [Primary Care Provider] - 4-7 days Discharge Diet: Advance as tolerated Discharge Activity: Resume usual activity Patient Instructions: Leg Edema (ED) Coding Level of Care Code ED 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
[2024-04-09] MEDS: FUROsemide 10 mg/mL SDV 10mL 60 MG IVP (11:14)
[2024-04-09 11:16] VITALS: BP 136/74; PULSE 60; RESP 24; O2SAT 100
[2024-04-09 11:37] LABS: Basophils % 0.3 %; Eosinophils # 0.1 10^3/uL (0.0-0.8); Eosinophils % 0.6 %; Lymphocytes # 1.4 10^3/uL (0.8-4.8); Lymphocytes % 16.1 %; Mean Corpuscular HGB Conc 28.1 g/dL (30-55); Mean Corpuscular Hemoglobin 21.5 pg (27-33); Mean Corpuscular Volume 76.7 fl (85-98); Mean Platelet Volume 12.1 fL (7.4-10.4); Monocytes # 1.1 10^3/uL (0.2-0.9); Neutrophils # 6.35 10^3/uL (1.8-7.7); Neutrophils % 70.8 %; Nucleated Red Blood Cells % 0 %; Platelet Count 184 10^3/cmm (157-399); Red Blood Count 4.04 10^6/uL (3.85-5.65); Red Cell Distribution Width 20.5 % (12.1-15.1); White Blood Count 8.97 10^3/uL (3.29-11.43)
[2024-04-09 11:58] LABS: Alanine Aminotransferase 9 U/L (0-33); Albumin Level 3.6 g/dL (3.5-5.2); Alkaline Phosphatase 154 U/L (35-105); Anion Gap 14.6 (5-19); Aspartate Amino Transferase 32 U/L (0-32); Blood Urea Nitrogen 11 mg/dL (8-23); Calcium 8.5 mg/dL (8.5-10.5); Carbon Dioxide 27 mmol/L (22-29); Chloride 105 mmol/L (98-107); Creatinine Clr Calc Pharmacy 69.2942; Globulin 3.3 g/dL (1.3-4.6); Glomerular Filtration Rate 49.7 mL/min (90-130); Glucose 156 mg/dL (65-115); NT Pro B Type Natriuretic Pept 1755 pg/mL (0-125); Osmolality Calculated 299 mOsm/kg (285-295); Potassium 3.6 mmol/L (3.5-5.1); Slide Review Slide Review Perform; Sodium 143 mmol/L (136-145); Total Bilirubin 0.7 mg/dL (0.15-1.2); Total Protein 6.9 g/dL (6.6-8.7)
[2024-04-09 12:00] VITALS: BP 141/49; PULSE 64; O2SAT 94
[2024-04-09 14:22] VITALS: BP 142/72; PULSE 65; O2SAT 100
== END 2024-04-09 14:23 | disposition home or self-care (01) ==
PROVIDERS: Emergency Provider Emergency Medicine; PCP Family Medicine
DX: R60.0 Localized edema (principal); I50.9 Heart failure, unspecified; I10 Essential (primary) hypertension
CPT/HCPCS: 71045; 80053; 83880; 85025; 93005; 96374; 99285; J1940

== ENCOUNTER 2024-04-11 00:32 | Emergency (ER) | payer MEDICARE, MEDICAID, SELFPAY ==
[2024-03-15 13:57] VITALS: BP 121/48; BMI 48.4
[2024-04-11] VITALS (7 sets, daily range): BP systolic 129–134; BP diastolic 64–68; PULSE 56–67; RESP 18–22; TEMP 36.7; O2SAT 92–100; BMI 48.0
--- NOTE | 2024-04-11 00:36 | XRR_ITS ---
PROCEDURE INFORMATION: Exam: XR Chest Exam date and time: 04/11/2024 1:07 AM Age: 68 years old Clinical indication: Shortness of breath; Additional info: Dyspnea covid positive TECHNIQUE: Imaging protocol: Radiologic exam of the chest. Views: 1 view. COMPARISON: CR XR chest 1V portable [id number] 04/09/2024 11:04 AM FINDINGS: Lungs: Unremarkable. No consolidation. Pleural spaces: Costophrenic angles are not optimally visualized and small pleural effusions cannot be excluded. Heart/Mediastinum: Cardiomegaly. Bones/joints: Unremarkable. XR/XR chest 1V portable [id number] IMPRESSION: Cardiomegaly.
[2024-04-11 00:54] LABS: Basophils % 0.6 %; Eosinophils % 0.2 %; Lymphocytes # 1.6 10^3/uL (0.8-4.8); Lymphocytes % 23.9 %; Mean Corpuscular HGB Conc 27.9 g/dL (30-55); Mean Corpuscular Hemoglobin 21.3 pg (27-33); Mean Corpuscular Volume 76.3 fl (85-98); Monocytes % 15.1 %; Neutrophils # 3.93 10^3/uL (1.8-7.7); Nucleated Red Blood Cells % 0 %; Platelet Count 145 10^3/cmm (157-399); Red Blood Count 3.67 10^6/uL (3.85-5.65); Red Cell Distribution Width 20.5 % (12.1-15.1); White Blood Count 6.54 10^3/uL (3.29-11.43)
[2024-04-11 01:11] LABS: Lactic Sepsis W/Reflex 1.4 mmol/L (0.5-2.2)
[2024-04-11 01:22] LABS: Alanine Aminotransferase 9 U/L (0-33); Albumin Level 3.2 g/dL (3.5-5.2); Alkaline Phosphatase 123 U/L (35-105); Anion Gap 13.2 (5-19); Aspartate Amino Transferase 33 U/L (0-32); Blood Urea Nitrogen 12 mg/dL (8-23); Calcium 8.4 mg/dL (8.5-10.5); Carbon Dioxide 26 mmol/L (22-29); Chloride 100 mmol/L (98-107); Creatinine Clr Calc Pharmacy 73.0535; Globulin 3.2 g/dL (1.3-4.6); Glomerular Filtration Rate 55.5 mL/min (90-130); Glucose 182 mg/dL (65-115); NT Pro B Type Natriuretic Pept 2732 pg/mL (0-125); Osmolality Calculated 286 mOsm/kg (285-295); Potassium 3.2 mmol/L (3.5-5.1); Sodium 136 mmol/L (136-145); Total Bilirubin 0.8 mg/dL (0.15-1.2); Total Protein 6.4 g/dL (6.6-8.7)
--- NOTE | 2024-04-11 02:10 | ED_ITS ---
HPI - SOB/Dyspnea 2 General: Chief Complaint: Shortness of Breath/Dyspnea Stated Complaint: SOB Time Seen by Provider: 04/11/24 00:36 History of Present Illness: HPI Narrative: Patient presents to the ER with complaints of not feeling good for the last several days. Patient is COVID-positive. Patient does have oxygen that she can use as needed. Upon arrival she is requiring 3 L to keep her sat of 100%. She does live at the [facility] in [place] Related Data Home Medications Medication Instructions Recorded Confirmed aspirin 81 mg tablet,delayed 81 mg PO DAILY 11/18/23 04/05/24 release (Adult Aspirin Regimen) lactulose 10 gram/15 mL oral syrup 10 g PO BID 02/23/24 04/05/24 docusate sodium 100 mg capsule 200 mg PO BID 03/07/24 04/05/24 pramipexole 0.5 mg tablet 0.5 mg PO BEDTIME 03/07/24 04/05/24 Previous Rx's Medication Instructions Recorded nitroglycerin 0.4 mg sublingual 0.4 mg sublingual Q5M PRN Chest 04/15/22 tablet Pain #25 tabs blood-glucose meter,continuous #1 ea 02/08/23 (Dexcom G7 Remote Broadcast Technician) diltiazem HCl 360 mg 360 mg PO DAILY #30 tabs 10/31/23 tablet,extended release 24 hr (Cardizem LA) pantoprazole 40 mg tablet,delayed 40 mg PO BID 8 weeks #112 tabs 10/31/23 release (Protonix) apixaban 5 mg tablet (Eliquis) 5 mg PO BID 30 days #60 tabs 12/06/23 atorvastatin 40 mg tablet 40 mg PO DAILY #90 tabs 12/06/23 metoprolol tartrate 100 mg tablet 150 mg (1.5 x 100 mg) PO Q12H 90 12/06/23 days #270 tabs insulin aspart U-100 100 unit/mL 14 unit (0.14 mL) SUBCUT TID #15 mL 12/28/23 (3 mL) subcutaneous pen (Novolog FlexPen U-100 Insulin aspart) loratadine 10 mg tablet (Allergy 10 mg PO DAILY #90 tabs 12/28/23 Relief (loratadine)) sucralfate 1 gram tablet (Carafate) 1 g PO BID #60 tabs 02/06/24 risperidone 0.25 mg tablet 0.25 mg PO .qhs #30 tabs 02/23/24 blood-glucose sensor (Dexcom G7 #1 ea 02/27/24 Sensor device) budesonide 1 mg/2 mL suspension 0.5 mg inhalation BID #60 mL 03/14/24 for nebulization nebulizers #1 ea 03/14/24 diaper,brief,adult,disposable #360 ea 03/25/24 (Depend Underwear For Women XL) albuterol sulfate 2.5 mg/3 mL 2.5 mg (3 mL) inhalation Q6H #150 03/27/24 (0.083 %) solution for nebulization vials albuterol sulfate 90 mcg/actuation 2 puff inhalation Q6H PRN 03/27/24 aerosol inhaler shortness of breath or wheezing #8.5 grams famotidine 20 mg tablet 20 mg PO BID 90 days #180 tabs 03/27/24 furosemide 40 mg tablet 80 mg (2 x 40 mg) PO BID weight 03/27/24 gain or shortness breath #120 tabs potassium chloride 20 mEq 20 meq PO BID PRN with lasix only 03/27/24 tablet,extended release(part/cryst) 90 days #180 tabs pregabalin 75 mg capsule 75 mg PO BID 30 days #60 caps 03/27/24 ferrous gluconate 324 mg (37.5 mg 324 mg PO BID #60 tabs 03/31/24 iron) tablet pen needle, diabetic 31 gauge x #100 ea 04/03/24 5/16 (BD Ultra-Fine Short Pen Needle) cholecalciferol (vitamin D3) 1,250 See Rx Instructions .Route 04/04/24 mcg (50,000 unit) capsule .COMPLEX #4 caps empagliflozin 10 mg tablet 10 mg PO DAILY 30 days #30 tabs 04/05/24 (Jardiance) insulin glargine 100 unit/mL (3 See Rx Instructions .Route 04/09/24 mL) subcutaneous pen (Lantus .COMPLEX #60 mL Solostar U-100 Insulin) Allergies Allergy/AdvReac Type Severity Reaction Status Date / Time propoxyphene [From Darvon] Allergy Unknown Unknown Verified 04/11/24 00:41 fluoxetine [From Prozac] AdvReac Severe ADR-Halluci Verified 04/11/24 00:41 nating Review of Systems 2 General: Reports: 10 or more systems reviewed and unremarkable except in HPI and below PFSH ED 2 PFSH: Medical History Smoking Chronic anticoagulation initiated apixaban 08/2020 for paroxysmal atrial fibrillation Hypertension, benign Paroxysmal atrial fibrillation (~08/2020) Congestive heart failure Encephalopathy acute Polypharmacy Atrial flutter Tachy-andra syndrome Acute anemia Rotator cuff dysfunction Smoking addiction Insomnia Wheelchair bound Oxygen dependent 2 L at home Small bowel obstruction History of colonic diverticulitis Paroxysmal SVT (supraventricular tachycardia) Nicotine dependence, cigarettes, with other nicotine-induced disorders DM type 2 (diabetes mellitus, type 2) Chest pain Atypical chest pain Paroxysmal A-fib NONA (obstructive sleep apnea) Uses CPAP Fibromyalgia Peripheral Vascular Disease Mixed stress and urge urinary incontinence Chronic pain syndrome Due to her weight and other comorbidities I do not think that there is much that pain management would be able to do. They can do localized injections or treatments on specific joints but she would never be a surgical candidate. Bipolar depression Overactive bladder RLS (restless legs syndrome) Constipation, chronic COPD (chronic obstructive pulmonary disease) GERD (gastroesophageal reflux disease) CAD (coronary artery disease) Diabetes mellitus type 2 in obese Hyperlipemia Chronic headache Panic disorder [episodic paroxysmal anxiety] Generalized anxiety disorder Major depressive disorder, recurrent, moderate Surgical History H/O: hysterectomy Hx of cholecystectomy S/P appendectomy H/O thyroidectomy Family History Mother , at age 75 Hypertension Father , at age 87 Hypertension Denies family history of Lung disease Stroke Social History Smoking and tobacco/nicotine status: never used tobacco/nicotine Alcohol intake: never Substance/Drug Use: never Adopted: No Caregiver/support person: No Lives independently: Yes Household members: none Housing: Apartment Marital status: / Number of children: 8 Number of grandchildren: 14 Highest education level completed: Some College, No Degree service: No Current occupational status: disabled Pets and animals: Yes Pets & animals: dog(s) Leisure activites: art, music, reading and other Sexually active: No Do you think of yourself as: Straight/Heterosexual Current gender identity: Female Lilliam/Gnosticist: Methodist Special lilliam needs: No Agree to transfusion: Yes Female Reproductive History: Para: 8 Spontaneous abortions: No Physical Exam 2 Const: COMMON NORMALS: no acute distress, average body habitus, patient oriented x3, no limitations, healthy appearing, alert and well nourished HENMT: COMMON NORMALS: normocephalic, atraumatic, hearing grossly normal bilaterally, external ears normal, Normal external nose present and moist oral mucous membranes HEAD & SCALP: normocephalic and atraumatic NOSE: Normal external nose present EXTERNAL EAR: Yes external ears normal Neck/C-Spine: COMMON NORMALS: no JVD Chest: COMMONS NORMALS: normal inspection of the chest and normal palpation of entire chest wall Resp: COMMON NORMALS: normal respiratory effort, No retractions, No use of accessory muscles and clear to auscultation bilaterally AUSCULTATION: clear to auscultation bilaterally Cardio: COMMON NORMALS: no JVD, regular rate, regular rhythm, S1 normal heart sound present, S2 normal heart sound present, No gallops present (Cardio), No clicks present (Cardio), No murmurs present (Cardio) and No rub (Cardio) R ATE: regular rate RHYTHM: regular rhythm HEART SOUNDS: S1 normal heart sound present and S2 normal heart sound present GI: COMMON NORMALS: Normal to inspection, nondistended, normoactive bowel sounds present, Soft to palpation, non-tender, No hepatosplenomegaly present and no masses PALPATION: Yes Soft to palpation and Yes No hepatosplenomegaly present Neuro: COMMON NORMALS: patient oriented x3 SENSORIUM/ORIENTATION: Yes alert Course 2 Vital Signs: Vital signs: Vital Signs Temperature 98.1 F 04/11/24 00:34 Pulse Rate 56 L 04/11/24 02:40 Respiratory Rate 18 04/11/24 02:40 Blood Pressure 129/68 04/11/24 02:40 Pulse Oximetry 96 04/11/24 02:40 Oxygen Delivery Me thod Nasal Cannula 04/11/24 00:34 Oxygen Flow Rate 3 04/11/24 00:34 MDM - SOB/Dyspnea Medical Decision Making Upon waiting for lab work to come back. Patient decided she was ready to go home because she started feeling better. I did not want a wait for lab work to come back. Patient be discharged back home we will call her with any significant abnormality if she is already left prior to results. Lab Data 04/11/24 00:50 04/11/24 00:50 Labs/Radiology: Radiology Impressions Chest X-Ray 04/11/24 00:36 IMPRESSION: Cardiomegaly. Laboratory Results WBC 6.54 10^3/uL (3.29-11.43) 04/11/24 00:50 RBC 3.67 10^6/uL (3.85-5.65) L 04/11/24 00:50 Hgb 7.80 g/dL (11.27-16.99) L 04/11/24 00:50 Hct 28.0 % (36-47) L 04/11/24 00:50 MCV 76.3 fl (85-98) L 04/11/24 00:50 MCH 21.3 pg (27-33) L 04/11/24 00:50 MCHC 27.9 g/dL (30-55) L 04/11/24 00:50 RDW 20.5 % (12.1-15.1) H 04/11/24 00:50 Plt Count 145 10^3/cmm (157-399) L 04/11/24 00:50 MPV 11.0 fL (7.4-10.4) H 04/11/24 00:50 Neut % (Auto) 60.0 % 04/11/24 00:50 Lymph % (Auto) 23.9 % 04/11/24 00:50 [place] % (Auto) 15.1 % 04/11/24 00:50 Eos % (Auto) 0.2 % 04/11/24 00:50 Baso % (Auto) 0.6 % 04/11/24 00:50 Neut # (Auto) 3.93 10^3/uL (1.8-7.7) 04/11/24 00:50 Lymph # (Auto) 1.6 10^3/uL (0.8-4.8) 04/11/24 00:50 [place] # (Auto) 1.0 10^3/uL (0.2-0.9) H 04/11/24 00:50 Eos # (Auto) 0.0 10^3/uL (0.0-0.8) 04/11/24 00:50 Baso # (Auto) 0.0 10^3/uL (0.0-0.1) 04/11/24 00:50 Nucleated RBC % (auto) 0 % 04/11/24 00:50 Nucleated RBCs # 0.0 /100WBC 04/11/24 00:50 Sodium 136 mmol/L (136-145) 04/11/24 00:50 Potassium 3.2 mmol/L (3.5-5.1) L 04/11/24 00:50 Chloride 100 mmol/L (98-107) 04/11/24 00:50 Carbon Dioxide 26 mmol/L (22-29) 04/11/24 00:50 Anion Gap 13.2 (5-19) 04/11/24 00:50 BUN 12 mg/dL (8-23) 04/11/24 00:50 Creatinine 1.0 mg/dL (0.5-0.9) H 04/11/24 00:50 GFR Calculation 55.5 mL/min (90-130) L 04/11/24 00:50 Glucose 182 mg/dL (65-115) H 04/11/24 00:50 Calculated Osmolality 286 mOsm/kg (285-295) 04/11/24 00:50 Lactic Acid 1.4 mmol/L (0.5-2.2) 04/11/24 00:50 Calcium 8.4 mg/dL (8.5-10.5) L 04/11/24 00:50 Total Bilirubin 0.8 mg/dL (0.15-1.2) 04/11/24 00:50 AST 33 U/L (0-32) H 04/11/24 00:50 ALT 9 U/L (0-33) 04/11/24 00:50 Alkaline Phosphatase 123 U/L (35-105) H 04/11/24 00:50 NT-Pro-B Natriuret Pep 2732 pg/mL (0-125) H 04/11/24 00:50 Total Protein 6.4 g/dL (6.6-8.7) L 04/11/24 00:50 Albumin 3.2 g/dL (3.5-5.2) L 04/11/24 00:50 Globulin 3.2 g/dL (1.3-4.6) 04/11/24 00:50 All radiology interpretation(s) finalized by discharge Discharge Plan Discharge Patient Disposition: Home Clinical Impression: COVID Condition: Stable Prescriptions: No Action insulin aspart U-100 [Novolog FlexPen U-100 Insulin] 100 unit/mL (3 mL) insulin pen 14 unit SUBCUT TID Qty: 15 3RF Rx Instructions: May substitute for formulary aspirin [Adult Aspirin Regimen] 81 mg tablet,delayed release (DR/EC) 81 mg PO DAILY Hold Instructions: bleeding Eliquis 5 mg tablet 5 mg PO BID 30 Days Qty: 60 5RF Hold Instructions: Resume on 11/21/23. atorvastatin 40 mg tablet 40 mg PO DAILY Qty: 90 2RF metoprolol tartrate 100 mg tablet 150 mg PO Q12H 90 Days Qty: 270 1RF sucralfate [Carafate] 1 gram tablet 1 g PO BID Qty: 60 2RF nitroglycerin 0.4 mg tablet, sublingual 0.4 mg SUBLINGUAL Q5M PRN (Reason: Chest Pain) Qty: 25 2RF lactulose 10 gram/15 mL syrup 10 g PO BID risperidone 0.25 mg tablet 0.25 mg PO .qhs Qty: 30 3RF Hold Instructions: see pcp loratadine [Allergy Relief (loratadine)] 10 mg tablet 10 mg PO DAILY Qty: 90 0RF pregabalin 75 mg capsule 75 mg PO BID 30 Days Qty: 60 3RF furosemide 40 mg tablet 80 mg PO BID Qty: 120 5RF Rx Instructions: 2 in AM, 2 @ noon albuterol sulfate 90 mcg/actuation HFA aerosol inhaler 2 puff INHALATION Q6H PRN (Reason: shortness of breath or wheezing) Qty: 8.5 5RF albuterol sulfate 2.5 mg /3 mL (0.083 %) solution for nebulization 2.5 mg inhalation Q6H Qty: 150 1RF famotidine 20 mg tablet 20 mg PO BID 90 Days Qty: 180 1RF potassium chloride 20 mEq tablet,ER particles/crystals 20 meq PO BID PRN (Reason: with lasix only) 90 Days Qty: 180 1RF (DME) nebulizers Misc See Rx Instructions .MEDSUPPLY Qty: 1 0RF Rx Instructions: As directed budesonide 1 mg/2 mL suspension for nebulization 0.5 mg inhalation BID Qty: 60 1RF Jardiance 10 mg tablet 10 mg PO DAILY 30 Days Qty: 30 5RF (DME) Dexcom G7 Remote Broadcast Technician [facility] [place] Instructions .Route Qty: 1 0RF Rx Instructions: As directed (DME) Dexcom G7 Sensor Device See Rx Instructions .ROUTE .COMPLEX Qty: 1 3RF Dose Instruction: USE TO MONITOR BLOOD SUGAR DIRECTED BY DOCTOR CHANGE SENSOR EVERY 10 DAYS Rx Instructions: USE TO MONITOR BLOOD SUGAR DIRECTED BY DOCTOR CHANGE SENSOR EVERY 10 DAYS (DME) Depend Underwear For Women [place] [facility] [place] Rx Instructions .Route Qty: 360 11RF Rx Instructions: As directed, 12 daily T4528 (DME) pen needle, diabetic [BD Ultra-Fine Short Pen Needle] 31 gauge x 5/16 needle See Rx Instructions .ROUTE .COMPLEX Qty: 100 2RF Dose Instruction: TO USE WITH INSULIN 4 TIMES DAILY Rx Instructions: TO USE WITH INSULIN 4 TIMES DAILY cholecalciferol (vitamin D3) 1,250 mcg (50,000 unit) capsule See Rx Instructions .ROUTE .COMPLEX Qty: 4 0RF Dose Instruction: TAKE ONE CAPSULE BY MOUTH WEEKLY ON MONDAYS NEED VITAMIN D LEVEL BEFORE NEXT DR VISIT Rx Instructions: TAKE ONE CAPSULE BY MOUTH WEEKLY ON MONDAYS NEED VITAMIN D LEVEL BEFORE NEXT DR VISIT insulin glargine [Lantus Solostar U-100 Insulin] 100 unit/mL (3 mL) insulin pen See Rx Instructions .ROUTE .COMPLEX Qty: 60 0RF Dose Instruction: 68 UNIT (0.68 ML) SUBCUTANEOUSLY DAILY Rx Instructions: 68 UNIT (0.68 ML) SUBCUTANEOUSLY DAILY diltiazem HCl [Cardizem LA] 360 mg tablet extended release 24 hr 360 mg PO DAILY Qty: 30 5RF Hold Instructions: Home Medication placed on hold at Doctor's office pantoprazole [Protonix] 40 mg tablet,delayed release (DR/EC) 40 mg PO BID 56 Days Qty: 112 3RF pramipexole 0.5 mg tablet 0.5 mg PO BEDTIME Rx Instructions: TAKE ONE TABLET BY MOUTH AT BEDTIME FOR 90 DAYS docusate sodium 100 mg capsule 200 mg PO BID Rx Instructions: TAKE TWO CAPSULES BY MOUTH TWICE A DAY ferrous gluconate 324 mg (37.5 mg iron) tablet 324 mg PO BID Qty: 60 3RF Discharge Orders: Discharge ED (Routine); Ordered 04/11/24 Ordered By: Juan Del Toro Referrals: Kristine Rodriguez MD [Primary Care Provider] - 1 week Patient Instructions: COVID-19 (Coronavirus Disease 2019) (ED) Activity Restrictions/Additional Instructions: Lab work and x-ray pending results. He decided he wanted to leave the ER before the results have been obtained. Please follow-up with the practitioner in the next 7 days for further evaluation treatment. If your lab work is significant for change in plans we will call you if you have already physical left the ER. Coding Level of Care Code ED Federal Agent for Urvashi Shaw
== END 2024-04-11 09:52 | disposition home or self-care (01) ==
PROVIDERS: Emergency Provider Emergency Medicine; PCP Family Medicine
DX: U07.1 COVID-19 (principal); Z79.82 Long term (current) use of aspirin; Z79.4 Long term (current) use of insulin; E11.9 Type 2 diabetes mellitus without complications; I50.9 Heart failure, unspecified; J44.9 Chronic obstructive pulmonary disease, unspecified; Z99.81 Dependence on supplemental oxygen; I25.10 Atherosclerotic heart disease of native coronary artery without angina pectoris; E78.5 Hyperlipidemia, unspecified
CPT/HCPCS: 36415; 71045; 80053; 83605; 83880; 85025; 99285

== ENCOUNTER 2024-04-12 11:56 | Emergency (ER) | payer MEDICARE, MEDICAID, SELFPAY ==
[2024-03-15 13:57] VITALS: BP 121/48; BMI 48.4
[2024-04-12 11:59] VITALS: BP 126/55; PULSE 61; RESP 24; TEMP 36.8; O2SAT 99
--- NOTE | 2024-04-12 12:11 | PC.PHAR ---
patient was seen 3 days ago, patient confirms meds are all still the same with no changes
[2024-04-12] MEDS: tetanus-dipt-pertussis 0.5 mL SDV IM (12:43)
--- NOTE | 2024-04-12 12:56 | W.ED.WOUNDLC ---
HPI - Wound/Laceration General: Chief Complaint: Wound/Laceration Stated Complaint: right leg lac, COVID + Time Seen by Provider: 04/12/24 12:19 History of Present Illness: 69-year-old female presents emergency room with complaint of a laceration on the outer aspect of the right lower leg. She was recently diagnosed with COVID she was walking past some furniture and leaned into the furniture to catch herself to prevent her from falling and caught on a sharp edge creating a large laceration. Patient is on anticoagulants bleeding controlled with direct pressure Related Data Home Medications Medication Instructions Recorded Confirmed aspirin 81 mg tablet,delayed 81 mg PO DAILY 11/18/23 04/12/24 release (Adult Aspirin Regimen) pramipexole 0.5 mg tablet 0.5 mg PO BEDTIME 03/07/24 04/12/24 insulin glargine 100 unit/mL (3 68 unit SUBCUT DAILY 04/12/24 04/12/24 mL) subcutaneous pen (Lantus Solostar U-100 Insulin) nystatin 100,000 unit/gram topical 1 applic topical TID 04/12/24 04/12/24 cream Previous Rx's Medication Instructions Recorded nitroglycerin 0.4 mg sublingual 0.4 mg sublingual Q5M PRN Chest 04/15/22 tablet Pain #25 tabs blood-glucose meter,continuous #1 ea 02/08/23 (Dexcom 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) pantoprazole 40 mg tablet,delayed 40 mg PO BID 8 weeks #112 tabs 10/31/23 release (Protonix) apixaban 5 mg tablet (Eliquis) 5 mg PO BID 30 days #60 tabs 12/06/23 atorvastatin 40 mg tablet 40 mg PO DAILY #90 tabs 12/06/23 metoprolol tartrate 100 mg tablet 150 mg (1.5 x 100 mg) PO Q12H 90 12/06/23 days #270 tabs insulin aspart U-100 100 unit/mL 14 unit (0.14 mL) SUBCUT TID #15 mL 12/28/23 (3 mL) subcutaneous pen (Novolog FlexPen U-100 Insulin aspart) sucralfate 1 gram tablet (Carafate) 1 g PO BID #60 tabs 02/06/24 risperidone 0.25 mg tablet 0.25 mg PO .qhs #30 tabs 02/23/24 blood-glucose sensor (Dexcom G7 #1 ea 02/27/24 Sensor device) budesonide 1 mg/2 mL suspension 0.5 mg inhalation BID #60 mL 03/14/24 for nebulization nebulizers #1 ea 03/14/24 diaper,brief,adult,disposable #360 ea 03/25/24 (Depend Underwear For Women XL) albuterol sulfate 2.5 mg/3 mL 2.5 mg (3 mL) inhalation Q6H #150 03/27/24 (0.083 %) solution for nebulization vials albuterol sulfate 90 mcg/actuation 2 puff inhalation Q6H PRN 03/27/24 aerosol inhaler shortness of breath or wheezing #8.5 grams famotidine 20 mg tablet 20 mg PO BID 90 days #180 tabs 03/27/24 furosemide 40 mg tablet 80 mg (2 x 40 mg) PO BID weight 03/27/24 gain or shortness breath #120 tabs potassium chloride 20 mEq 20 meq PO BID PRN with lasix only 03/27/24 tablet,extended release(part/cryst) 90 days #180 tabs pregabalin 75 mg capsule 75 mg PO BID 30 days #60 caps 03/27/24 ferrous gluconate 324 mg (37.5 mg 324 mg PO BID #60 tabs 03/31/24 iron) tablet pen needle, diabetic 31 gauge x #100 ea 04/03/24 5/16 (BD Ultra-Fine Short Pen Needle) cholecalciferol (vitamin D3) 1,250 See Rx Instructions .Route 04/04/24 mcg (50,000 unit) capsule .COMPLEX #4 caps empagliflozin 10 mg tablet 10 mg PO DAILY 30 days #30 tabs 04/05/24 (Jardiance) cephalexin 750 mg capsule 750 mg PO BID 7 days #14 caps 04/12/24 mupirocin 2 % topical ointment 1 applic topical DAILY #50 grams 04/12/24 Allergies Allergy/AdvReac Type Severity Reaction Status Date / Time propoxyphene [From Darvon] Allergy Unknown Unknown Verified 04/11/24 00:41 fluoxetine [From Prozac] AdvReac Severe ADR-Halluci Verified 04/11/24 00:41 [facility]: Medical History Smoking Chronic anticoagulation initiated apixaban 08/2020 for paroxysmal atrial fibrillation Hypertension, benign Paroxysmal atrial fibrillation (~08/2020) Congestive heart failure Encephalopathy acute Polypharmacy Atrial flutter Tachy-andra syndrome Acute anemia Rotator cuff dysfunction Smoking addiction Insomnia Wheelchair bound Oxygen dependent 2 L at home Small bowel obstruction History of colonic diverticulitis Paroxysmal SVT (supraventricular tachycardia) Nicotine dependence, cigarettes, with other nicotine-induced disorders DM type 2 (diabetes mellitus, type 2) Chest pain Atypical chest pain Paroxysmal A-fib NONA (obstructive sleep apnea) Uses CPAP Fibromyalgia Peripheral Vascular Disease Mixed stress and urge urinary incontinence Chronic pain syndrome Due to her weight and other comorbidities I do not think that there is much that pain management would be able to do. They can do localized injections or treatments on specific joints but she would never be a surgical candidate. Bipolar depression Overactive bladder RLS (restless legs syndrome) Constipation, chronic COPD (chronic obstructive pulmonary disease) GERD (gastroesophageal reflux disease) CAD (coronary artery disease) Diabetes mellitus type 2 in obese Hyperlipemia Chronic headache Panic disorder [episodic paroxysmal anxiety] Generalized anxiety disorder Major depressive disorder, recurrent, moderate Surgical History H/O: hysterectomy Hx of cholecystectomy S/P appendectomy H/O thyroidectomy Family History Mother , at age 75 Hypertension Father , at age 87 Hypertension Denies family history of Lung disease Stroke Social History Smoking and tobacco/nicotine status: never used tobacco/nicotine Alcohol intake: never Substance/Drug Use: never Adopted: No Caregiver/support person: No Lives independently: Yes Household members: none Housing: Apartment Marital status: / Number of children: 8 Number of grandchildren: 14 Highest education level completed: Some College, No Degree service: No Current occupational status: disabled Pets and animals: Yes Pets & animals: dog(s) Leisure activites: art, music, reading and other Sexually active: No Do you think of yourself as: Straight/Heterosexual Current gender identity: Female Lilliam/Christian: Gnosticist Special lilliam needs: No Agree to transfusion: Yes Female Reproductive History: Para: 8 Spontaneous abortions: No Physical Exam Extremity: OTHER: Patient has approximately 10 inch laceration lateral aspect of the right leg. There is a horizontal component of approximately 4 inches in a vertical component of 6 inches. No active bleeding. Procedures Laceration Laceration 1: Site: lower extremity Side (If applicable): right Size (cm): 25 Description: linear Depth: simple, single layer Pre-repair: wound explored and irrigated extensively Skin layer closed with: other (Prolene) Size (cm): 3-0 Technique: horizontal mattress Procedural Sedation Indication: laceration repair ASA Class: I Preparation: cardiac nurse practitioner applied, pulse oximeter, capnometry used, supplemental O2 applied and IV secured Fentanyl: IV (Titrated to a total of 100 mcg) Midazolam: IV Midazolam dose (mg): 6 Course Vital Signs: Vital signs: Vital Signs Temperature 98.3 F 04/12/24 11:59 Pulse Rate 74 04/12/24 16:06 Respiratory Rate 16 04/12/24 16:06 Blood Pressure 106/48 04/12/24 16:06 Pulse Oximetry 94 04/12/24 16:06 Oxygen Delivery Me thod Nasal Cannula 04/12/24 15:38 Oxygen Flow Rate 5 04/12/24 14:53 MDM - Wound/Laceration Medical Decision Making We were able to approximate skin edges relatively well. There is quite a bit of tension because of edema in her lower extremities. Wound care instructions given sutures should be removed until approximately 10 to 14 days apply topical antibiotic ointment. Follow-up with primary care elevate leg is much as she is able to next few days. No radiology studies performed this visit Discharge Plan Discharge Patient Disposition: Home Clinical Impression: Laceration of leg, right Condition: Stable Prescriptions: New mupirocin 2 % ointment 1 applic topical DAILY Qty: 50 0RF cephalexin 750 mg capsule 750 mg PO BID 7 Days Qty: 14 0RF No Action insulin aspart U-100 [Novolog FlexPen U-100 Insulin] 100 unit/mL (3 mL) insulin pen 14 unit SUBCUT TID Qty: 15 3RF Rx Instructions: May substitute for formulary aspirin [Adult Aspirin Regimen] 81 mg tablet,delayed release (DR/EC) 81 mg PO DAILY Hold Instructions: bleeding Eliquis 5 mg tablet 5 mg PO BID 30 Days Qty: 60 5RF Hold Instructions: Resume on 11/21/23. atorvastatin 40 mg tablet 40 mg PO DAILY Qty: 90 2RF metoprolol tartrate 100 mg tablet 150 mg PO Q12H 90 Days Qty: 270 1RF sucralfate [Carafate] 1 gram tablet 1 g PO BID Qty: 60 2RF nitroglycerin 0.4 mg tablet, sublingual 0.4 mg SUBLINGUAL Q5M PRN (Reason: Chest Pain) Qty: 25 2RF risperidone 0.25 mg tablet 0.25 mg PO .qhs Qty: 30 3RF Hold Instructions: see pcp pregabalin 75 mg capsule 75 mg PO BID 30 Days Qty: 60 3RF furosemide 40 mg tablet 80 mg PO BID Qty: 120 5RF Rx Instructions: 2 in AM, 2 @ noon albuterol sulfate 90 mcg/actuation HFA aerosol inhaler 2 puff INHALATION Q6H PRN (Reason: shortness of breath or wheezing) Qty: 8.5 5RF albuterol sulfate 2.5 mg /3 mL (0.083 %) solution for nebulization 2.5 mg inhalation Q6H Qty: 150 1RF famotidine 20 mg tablet 20 mg PO BID 90 Days Qty: 180 1RF potassium chloride 20 mEq tablet,ER particles/crystals 20 meq PO BID PRN (Reason: with lasix only) 90 Days Qty: 180 1RF (DME) nebulizers [facility] See Rx Instructions .MEDSUPPLY Qty: 1 0RF Rx Instructions: As directed budesonide 1 mg/2 mL suspension for nebulization 0.5 mg inhalation BID Qty: 60 1RF Jardiance 10 mg tablet 10 mg PO DAILY 30 Days Qty: 30 5RF (DME) Dexcom 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 [facility] [place] See Rx Instructions .Route Qty: 1 0RF Rx Instructions: As directed (DME) Dexcom G7 Sensor Device See Rx Instructions .ROUTE .COMPLEX Qty: 1 3RF Dose Instruction: USE TO MONITOR BLOOD SUGAR DIRECTED BY DOCTOR CHANGE SENSOR EVERY 10 DAYS Rx Instructions: USE TO MONITOR BLOOD SUGAR DIRECTED BY DOCTOR CHANGE SENSOR EVERY 10 DAYS (DME) Depend Underwear For Women XL [facility] [place] See Rx Instructions .Route Qty: 360 11RF Rx Instructions: As directed, 12 daily T4528 (DME) pen needle, diabetic [BD Ultra-Fine Short Pen Needle] 31 gauge x 5/16 needle See Rx Instructions .ROUTE .COMPLEX Qty: 100 2RF Dose Instruction: TO USE WITH INSULIN 4 TIMES DAILY Rx Instructions: TO USE WITH INSULIN 4 TIMES DAILY cholecalciferol (vitamin D3) 1,250 mcg (50,000 unit) capsule See Rx Instructions .ROUTE .COMPLEX Qty: 4 0RF Dose Instruction: TAKE ONE CAPSULE BY MOUTH WEEKLY ON MONDAYS NEED VITAMIN D LEVEL BEFORE NEXT DR VISIT Rx Instructions: TAKE ONE CAPSULE BY MOUTH WEEKLY ON MONDAYS NEED VITAMIN D LEVEL BEFORE NEXT DR VISIT pantoprazole [Protonix] 40 mg tablet,delayed release (DR/EC) 40 mg PO BID 56 Days Qty: 112 3RF pramipexole 0.5 mg tablet 0.5 mg PO BEDTIME Rx Instructions: TAKE ONE TABLET BY MOUTH AT BEDTIME FOR 90 DAYS ferrous gluconate 324 mg (37.5 mg iron) tablet 324 mg PO BID Qty: 60 3RF insulin glargine [Lantus Solostar U-100 Insulin] 100 unit/mL (3 mL) insulin pen 68 unit SUBCUT DAILY Rx Instructions: 68 UNIT (0.68 ML) SUBCUTANEOUSLY DAILY nystatin 100,000 unit/gram cream 1 applic TOPICAL TID Discharge Orders: Discharge ED (Routine); Ordered 04/12/24 Ordered By: Kirby Julien Referrals: Kristine Rodriguez MD [Primary Care Provider] - Discharge Diet: Usual diet Discharge Activity: Limit activity as instructed Patient Instructions: Opioid Safety, Pain Management Activity Restrictions/Additional Instructions: Thank you for choosing [facility] for your healthcare needs today. It is very important that you follow up as instructed or that you return to the Emergency Department should you have concerns or if your condition changes or worsens in any way. You are seen in the emergency room after laceration to your right lower leg. Because of the swelling in your leg and the severity of the laceration it was difficult to close primarily. We did approximate skin edges. The sutures can be removed in approximately 10 to 14 days that should be done at the wound care clinic. Case management make arrangements for you to be seen at the wound care clinic. Apply topical antibiotic ointment to the wound twice a day until the sutures are removed. You are also given a prescription for an oral antibiotic 1 pill twice a day for a week. Return if there is breakdown of the wound or signs of infection. Because the amount of swelling in your leg and the need to protect the tissue and only loosely approximate the skin edges there likely will be a significant amount of drainage for the next several days from the wound. Typical drainage for this wound will be thin blood-tinged fluid. Continue all of your medications as previously prescribed. Coding Level of Care Code ED Candy Cooker Helper for Urvashi Shaw
[2024-04-12 13:32] VITALS: BP 134/52; PULSE 53; RESP 18; O2SAT 100
[2024-04-12 14:53] VITALS: BP 128/88; PULSE 64; RESP 20; O2SAT 100
[2024-04-12 15:34] VITALS: RESP 20; O2SAT 99
[2024-04-12] MEDS: fentaNYL 50 mcg/mL INJ 2mL 100 MCG IVP (15:34)
[2024-04-12] MEDS: midazolam 1 mg/mL INJ 2 mL 6 MG IVP (15:37)
[2024-04-12 15:38] VITALS: BP 134/70; PULSE 67; RESP 20; O2SAT 100
[2024-04-12 16:06] VITALS: BP 106/48; PULSE 74; RESP 16; O2SAT 94
--- NOTE | 2024-04-12 16:22 | PC.NURSE ---
PT CONSCIOUS SEDATION: 1438 BEGAN 3ML VERSED 1 ML OF FENT 134/70, HR 67, 100% ON 3 L, 20 RR, SECOND DOSE 1449: 1ML VERSED, 0.5 ML FENT 128/88 HR 64 100% 5 L, 20 RR. 1454 GIVEN 1 VERSED, 105/75, 99% 5 L, 18 RR, HR 63. POST PROCEDURE 1503 PT WAS AWAKE VS 97 % 3 L (PT BASELINE) RR 19 HR 63, BP 131/77. MEDS DOCUMENTED AND WASTED IN PYXIS WITH NURSE FELIX AND NURSE ELE.
== END 2024-04-12 16:00 | disposition home or self-care (01) ==
PROVIDERS: Emergency Provider Family Medicine; PCP Family Medicine
DX: S81.811A Laceration without foreign body, right lower leg, initial encounter (principal); Z79.82 Long term (current) use of aspirin; Z79.4 Long term (current) use of insulin; X58.XXXA Exposure to other specified factors, initial encounter; E11.9 Type 2 diabetes mellitus without complications; I11.0 Hypertensive heart disease with heart failure; I50.9 Heart failure, unspecified; J44.9 Chronic obstructive pulmonary disease, unspecified; I25.10 Atherosclerotic heart disease of native coronary artery without angina pectoris; E78.5 Hyperlipidemia, unspecified; Z99.81 Dependence on supplemental oxygen
CPT/HCPCS: 12006; 90471; 90715; 94799; 99285; J2250; J3010

== ENCOUNTER → 2024-04-19 08:51 | Outpatient (BNVA) | payer MEDICARE, MEDICAID, SELFPAY ==
[2024-03-15 13:57] VITALS: BP 121/48; BMI 48.4
== END ==
PROVIDERS: PCP Family Medicine; Visit Provider Thoracic Surgery (Cardiothoracic Vascular Surgery)
DX: S81.811A Laceration without foreign body, right lower leg, initial encounter (principal); W22.8XXA Striking against or struck by other objects, initial encounter
CPT/HCPCS: 99213

== ENCOUNTER 2024-04-23 17:25 | Emergency (ER) | payer MEDICARE, MEDICAID, SELFPAY ==
[2024-03-15 13:57] VITALS: BP 121/48; BMI 48.4
[2024-04-23 17:28] VITALS: BP 142/80; PULSE 67; RESP 20; TEMP 36.6; O2SAT 100; BMI 48.0
--- NOTE | 2024-04-23 17:30 | XRR_ITS ---
PROCEDURE INFORMATION: Exam: XR Chest Exam date and time: 04/23/2024 5:32 PM Age: 69 years old Clinical indication: Dyspnea; Additional info: Dyspnea/cough TECHNIQUE: Imaging protocol: Radiologic exam of the chest. Views: 1 view. COMPARISON: CR (CHEST, ) 04/11/2024 1:07 AM FINDINGS: Lungs: Unremarkable. No consolidation. Pleural spaces: Unremarkable. No pleural effusion. No pneumothorax. Heart/Mediastinum: Unremarkable. No cardiomegaly. Bones/joints: Unremarkable. XR/XR chest 1V portable [id number] IMPRESSION: No acute findings.
--- NOTE | 2024-04-23 17:51 | W.ED.SOB ---
Documented by User: Kirby Julien, DO 04/27/24 05:56 HPI - SOB/Dyspnea General: Chief Complaint: Shortness of Breath/Dyspnea Stated Complaint: sob Time Seen by Provider: 04/23/24 18:40 History of Present Illness: HPI Narrative: 63-year-old female presents emergency room complaining of increasing shortness of breath orthopnea. She recently had missed some doses of her diuretic. She denies any chest pain no fever sweats or chills or productive cough. She is usually on oxygen at 4 L/min and is satting normally on her usual 4 L. 69-year-old female seen earlier by Dr. Julien. She has a history of congestive heart failure. She presents short of breath. Associated symptoms: Reports chest congestion; Deny abdominal pain, chest pain or fever(s) Related Data Home Medications Medication Instructions Recorded Confirmed aspirin 81 mg tablet,delayed 81 mg PO DAILY 11/18/23 04/12/24 release (Adult Aspirin Regimen) pramipexole 0.5 mg tablet 0.5 mg PO BEDTIME 03/07/24 04/12/24 insulin glargine 100 unit/mL (3 68 unit SUBCUT DAILY 04/12/24 04/12/24 mL) subcutaneous pen (Lantus Solostar U-100 Insulin) nystatin 100,000 unit/gram topical 1 applic topical TID 04/12/24 04/12/24 cream Previous Rx's Medication Instructions Recorded nitroglycerin 0.4 mg sublingual 0.4 mg sublingual Q5M PRN Chest 04/15/22 tablet Pain #25 tabs blood-glucose meter,continuous #1 ea 02/08/23 (Dexcom G7 Health Care Social Worker) pantoprazole 40 mg tablet,delayed 40 mg PO BID 8 weeks #112 tabs 10/31/23 release (Protonix) apixaban 5 mg tablet (Eliquis) 5 mg PO BID 30 days #60 tabs 12/06/23 atorvastatin 40 mg tablet 40 mg PO DAILY #90 tabs 12/06/23 metoprolol tartrate 100 mg tablet 150 mg (1.5 x 100 mg) PO Q12H 90 12/06/23 days #270 tabs insulin aspart U-100 100 unit/mL 14 unit (0.14 mL) SUBCUT TID #15 mL 12/28/23 (3 mL) subcutaneous pen (Novolog FlexPen U-100 Insulin aspart) sucralfate 1 gram tablet (Carafate) 1 g PO BID #60 tabs 02/06/24 risperidone 0.25 mg tablet 0.25 mg PO .qhs #30 tabs 02/23/24 blood-glucose sensor (Dexcom G7 #1 ea 02/27/24 Sensor device) budesonide 1 mg/2 mL suspension 0.5 mg inhalation BID #60 mL 03/14/24 for nebulization nebulizers #1 ea 03/14/24 diaper,brief,adult,disposable #360 ea 03/25/24 (Depend Underwear For Women XL) albuterol sulfate 2.5 mg/3 mL 2.5 mg (3 mL) inhalation Q6H #150 03/27/24 (0.083 %) solution for nebulization vials albuterol sulfate 90 mcg/actuation 2 puff inhalation Q6H PRN 03/27/24 aerosol inhaler shortness of breath or wheezing #8.5 grams famotidine 20 mg tablet 20 mg PO BID 90 days #180 tabs 03/27/24 furosemide 40 mg tablet 80 mg (2 x 40 mg) PO BID weight 03/27/24 gain or shortness breath #120 tabs potassium chloride 20 mEq 20 meq PO BID PRN with lasix only 03/27/24 tablet,extended release(part/cryst) 90 days #180 tabs pregabalin 75 mg capsule 75 mg PO BID 30 days #60 caps 03/27/24 ferrous gluconate 324 mg (37.5 mg 324 mg PO BID #60 tabs 03/31/24 iron) tablet pen needle, diabetic 31 gauge x #100 ea 04/03/24 5/16 (BD Ultra-Fine Short Pen Needle) empagliflozin 10 mg tablet 10 mg PO DAILY 30 days #30 tabs 04/05/24 (Jardiance) mupirocin 2 % topical ointment 1 applic topical DAILY #50 grams 04/12/24 buspirone 15 mg tablet 15 mg PO TID PRN anxiety #90 tabs 04/19/24 cholecalciferol (vitamin D3) 1,250 See Rx Instructions .Route 04/26/24 mcg (50,000 unit) capsule .COMPLEX #4 caps Allergies Allergy/AdvReac Type Severity Reaction Status Date / Time propoxyphene [From Darvon] Allergy Unknown Unknown Verified 04/11/24 00:41 fluoxetine [From Prozac] AdvReac Severe ADR-Halluci Verified 04/11/24 00:41 nating Review of Systems Const: Denies: fever(s) or chills Card: Denies: chest pain Resp: Reports: dyspnea and chest congestion GI: Denies: abdominal pain : Denies: dysuria, urinary frequency or urinary urgency Musc: Denies: neck pain or back pain Skin/Breast: Denies: rash PFSH ED PFSH: Medical History Smoking Chronic anticoagulation initiated apixaban 08/2020 for paroxysmal atrial fibrillation Hypertension, benign Paroxysmal atrial fibrillation (~08/2020) Congestive heart failure Encephalopathy acute Polypharmacy Atrial flutter Tachy-andra syndrome Acute anemia Rotator cuff dysfunction Smoking addiction Insomnia Wheelchair bound Oxygen dependent 2 L at home Small bowel obstruction History of colonic diverticulitis Paroxysmal SVT (supraventricular tachycardia) Nicotine dependence, cigarettes, with other nicotine-induced disorders DM type 2 (diabetes mellitus, type 2) Chest pain Atypical chest pain Paroxysmal A-fib NONA (obstructive sleep apnea) Uses CPAP Fibromyalgia Peripheral Vascular Disease Mixed stress and urge urinary incontinence Chronic pain syndrome Due to her weight and other comorbidities I do not think that there is much that pain management would be able to do. They can do localized injections or treatments on specific joints but she would never be a surgical candidate. Bipolar depression Overactive bladder RLS (restless legs syndrome) Constipation, chronic COPD (chronic obstructive pulmonary disease) GERD (gastroesophageal reflux disease) CAD (coronary artery disease) Diabetes mellitus type 2 in obese Hyperlipemia Chronic headache Panic disorder [episodic paroxysmal anxiety] Generalized anxiety disorder Major depressive disorder, recurrent, moderate Surgical History Hx of tubal ligation Hx of colonoscopy 10 + years H/O: hysterectomy Hx of cholecystectomy S/P appendectomy H/O thyroidectomy Family History Mother , at age 75 Hypertension Father , at age 87 Hypertension Denies family history of Lung disease Stroke Social History Smoking and tobacco/nicotine status: never used tobacco/nicotine Alcohol intake: never Substance/Drug Use: never Adopted: No Caregiver/support person: No Lives independently: Yes Household members: none Housing: Apartment Marital status: / Number of children: 8 Number of grandchildren: 14 Highest education level completed: Some College, No Degree service: No Current occupational status: disabled Pets and animals: Yes Pets & animals: dog(s) Leisure activites: art, music, reading and other Sexually active: No Do you think of yourself as: Straight/Heterosexual Current gender identity: Female Lilliam/Sikhism: Jehovah'S Witness Special lilliam needs: No Agree to transfusion: Yes Female Reproductive History: Para: 8 Spontaneous abortions: No Physical Exam Const: GENERAL APPEARANCE: cooperative ORIENTATION/CONSCIOUSNESS: Yes awake, Yes oriented to person, Yes oriented to place and Yes oriented to time HENMT: COMMON NORMALS: normocephalic, atraumatic and hearing grossly normal bilaterally HEAD & SCALP: normocephalic and atraumatic Resp: AUSCULTATION: crackles, rhonchi and wheezes Cardio: COMMON NORMALS: regular rate, regular rhythm and No murmurs present (Cardio) RATE: regular rate RHYTHM: regular rhythm GI: COMMON NORMALS: Soft to palpation and No hepatosplenomegaly present AUSCULTATION: Yes normoactive bowel sounds PALPATION: Yes Soft to palpation, No Tenderness to palpation present (GI), No Guarding due to palpation present (GI) and Yes No hepatosplenomegaly present Extremity: COMMON NORMALS: normal to inspection, capillary refill normal and no calf tenderness GENERAL: Yes edema (2+ edema lower extremity) OTHER: Patient is 11-day-old wound that we had sutured previously in the emergency room the apex of the wound on the right lower leg is devascularizing however the majority of the wound is well-approximated healed appears to be healing well. She has large horizontal mattress sutures are still in place with no dehiscence. Neuro: SENSORIUM/ORIENTATION: Yes oriented to person, Yes oriented to place and Yes oriented to time Skin: COMMON NORMALS: no rashes or lesions noted GENERAL SKIN EXAM: no rashes or lesions noted Course Vital Signs: Vital signs: Vital Signs Temperature 97.8 F 04/23/24 17:28 Pulse Rate 67 04/23/24 20:18 Respiratory Rate 20 H 04/23/24 17:28 Blood Pressure 129/62 04/23/24 20:18 Pulse Oximetry 99 04/23/24 20:18 Oxygen Delivery Me thod Nasal Cannula 04/23/24 17:28 Oxygen Flow Rate 4 04/23/24 17:28 MDM - SOB/Dyspnea Medical Decision Making Care signed out to Dr. Glynn at change of shift. See final notes for diagnosis and disposition. Lab Data 04/23/24 18:25 04/23/24 18:25 Labs/Radiology: Radiology Impressions Chest X-Ray 04/23/24 17:30 IMPRESSION: No acute findings. Laboratory Results WBC 8.88 10^3/uL (3.29-11.43) 04/23/24 18:25 RBC 3.71 10^6/uL (3.85-5.65) L 04/23/24 18:25 Hgb 8.30 g/dL (11.27-16.99) L 04/23/24 18:25 Hct 29.1 % (36-47) L 04/23/24 18:25 MCV 78.4 fl (85-98) L 04/23/24 18:25 MCH 22.4 pg (27-33) L 04/23/24 18:25 MCHC 28.5 g/dL (30-55) L 04/23/24 18:25 RDW 24.2 % (12.1-15.1) H 04/23/24 18:25 Plt Count 293 10^3/cmm (157-399) 04/23/24 18:25 MPV 11.1 fL (7.4-10.4) H 04/23/24 18:25 Neut % (Auto) 66.6 % 04/23/24 18:25 Lymph % (Auto) 22.1 % 04/23/24 18:25 [place] % (Auto) 9.3 % 04/23/24 18:25 Eos % (Auto) 1.6 % 04/23/24 18:25 Baso % (Auto) 0.2 % 04/23/24 18:25 Neut # (Auto) 5.91 10^3/uL (1.8-7.7) 04/23/24 18:25 Lymph # (Auto) 2.0 10^3/uL (0.8-4.8) 04/23/24 18:25 [place] # (Auto) 0.8 10^3/uL (0.2-0.9) 04/23/24 18:25 Eos # (Auto) 0.1 10^3/uL (0.0-0.8) 04/23/24 18:25 Baso # (Auto) 0.0 10^3/uL (0.0-0.1) 04/23/24 18:25 Nucleated RBC % (auto) 0 % 04/23/24 18:25 Nucleated RBCs # 0.0 /100WBC 04/23/24 18:25 Sodium 141 mmol/L (136-145) 04/23/24 18:25 Potassium 4.0 mmol/L (3.5-5.1) 04/23/24 18:25 Chloride 105 mmol/L (98-107) 04/23/24 18:25 Carbon Dioxide 28 mmol/L (22-29) 04/23/24 18:25 Anion Gap 12.0 (5-19) 04/23/24 18:25 BUN 12 mg/dL (8-23) 04/23/24 18:25 Creatinine 1.1 mg/dL (0.5-0.9) H 04/23/24 18:25 GFR Calculation 49.5 mL/min (90-130) L 04/23/24 18:25 Glucose 206 mg/dL (65-115) H 04/23/24 18:25 Calculated Osmolality 298 mOsm/kg (285-295) H 04/23/24 18:25 Calcium 8.7 mg/dL (8.5-10.5) 04/23/24 18:25 Total Bilirubin 0.4 mg/dL (0.15-1.2) 04/23/24 18:25 AST 24 U/L (0-32) 04/23/24 18:25 ALT 10 U/L (0-33) 04/23/24 18:25 Alkaline Phosphatase 148 U/L (35-105) H 04/23/24 18:25 NT-Pro-B Natriuret Pep 2196 pg/mL (0-125) H 04/23/24 18:25 Total Protein 6.8 g/dL (6.6-8.7) 04/23/24 18:25 Albumin 3.2 g/dL (3.5-5.2) L 04/23/24 18:25 Globulin 3.6 g/dL (1.3-4.6) 04/23/24 18:25 Coronavirus (PCR) Negative (Negative) 04/23/24 17:35 Influenza A (PCR) Negative (Negative) 04/23/24 17:35 Influenza Type B (PCR) Negative (Negative) 04/23/24 17:35 RSV (PCR) Negative (Negative) 04/23/24 17:35 Discharge Plan Discharge Patient Disposition: Home Clinical Impression: Anemia, Chronic respiratory failure with hypoxia Congestive heart failure Qualifiers: Heart failure type: unspecified Heart failure chronicity: chronic Qualified Code(s): I50.9 - Heart failure, unspecified Condition: Stable Prescriptions: No Action insulin aspart U-100 [Novolog FlexPen U-100 Insulin] 100 unit/mL (3 mL) insulin pen 14 unit SUBCUT TID Qty: 15 3RF Rx Instructions: May substitute for formulary aspirin [Adult Aspirin Regimen] 81 mg tablet,delayed release (DR/EC) 81 mg PO DAILY Hold Instructions: bleeding Eliquis 5 mg tablet 5 mg PO BID 30 Days Qty: 60 5RF Hold Instructions: Resume on 11/21/23. atorvastatin 40 mg tablet 40 mg PO DAILY Qty: 90 2RF metoprolol tartrate 100 mg tablet 150 mg PO Q12H 90 Days Qty: 270 1RF sucralfate [Carafate] 1 gram tablet 1 g PO BID Qty: 60 2RF nitroglycerin 0.4 mg tablet, sublingual 0.4 mg SUBLINGUAL Q5M PRN (Reason: Chest Pain) Qty: 25 2RF risperidone 0.25 mg tablet 0.25 mg PO .qhs Qty: 30 3RF Hold Instructions: see pcp pregabalin 75 mg capsule 75 mg PO BID 30 Days Qty: 60 3RF furosemide 40 mg tablet 80 mg PO BID Qty: 120 5RF Rx Instructions: 2 in AM, 2 @ noon albuterol sulfate 90 mcg/actuation HFA aerosol inhaler 2 puff INHALATION Q6H PRN (Reason: shortness of breath or wheezing) Qty: 8.5 5RF albuterol sulfate 2.5 mg /3 mL (0.083 %) solution for nebulization 2.5 mg inhalation Q6H Qty: 150 1RF famotidine 20 mg tablet 20 mg PO BID 90 Days Qty: 180 1RF potassium chloride 20 mEq tablet,ER particles/crystals 20 meq PO BID PRN (Reason: with lasix only) 90 Days Qty: 180 1RF (DME) nebulizers Misc See Rx Instructions .MEDSUPPLY Qty: 1 0RF Rx Instructions: As directed budesonide 1 mg/2 mL suspension for nebulization 0.5 mg inhalation BID Qty: 60 1RF Jardiance 10 mg tablet 10 mg PO DAILY 30 Days Qty: 30 5RF (DME) Dexcom G7 Health Care Social Worker Misc See Rx Instructions .Route Qty: 1 0RF Rx Instructions: As directed (DME) Dexcom G7 Sensor Device See Rx Instructions .ROUTE .COMPLEX Qty: 1 3RF Dose Instruction: USE TO MONITOR BLOOD SUGAR DIRECTED BY DOCTOR CHANGE SENSOR EVERY 10 DAYS Rx Instructions: USE TO MONITOR BLOOD SUGAR DIRECTED BY DOCTOR CHANGE SENSOR EVERY 10 DAYS (DME) Depend Underwear For Women XL Misc See Rx Instructions .Route Qty: 360 11RF Rx Instructions: As directed, 12 daily T4528 (DME) pen needle, diabetic [BD Ultra-Fine Short Pen Needle] 31 gauge x 5/16 needle See Rx Instructions .ROUTE .COMPLEX Qty: 100 2RF Dose Instruction: TO USE WITH INSULIN 4 TIMES DAILY Rx Instructions: TO USE WITH INSULIN 4 TIMES DAILY buspirone 15 mg tablet 15 mg PO TID PRN (Reason: anxiety) Qty: 90 3RF cholecalciferol (vitamin D3) 1,250 mcg (50,000 unit) capsule See Rx Instructions .ROUTE .COMPLEX Qty: 4 0RF Dose Instruction: TAKE ONE CAPSULE BY MOUTH WEEKLY ON MONDAYS NEED VITAMIN D LEVEL BEFORE NEXT DR VISIT Rx Instructions: TAKE ONE CAPSULE BY MOUTH WEEKLY ON MONDAYS NEED VITAMIN D LEVEL BEFORE NEXT DR VISIT pantoprazole [Protonix] 40 mg tablet,delayed release (DR/EC) 40 mg PO BID 56 Days Qty: 112 3RF pramipexole 0.5 mg tablet 0.5 mg PO BEDTIME Rx Instructions: TAKE ONE TABLET BY MOUTH AT BEDTIME FOR 90 DAYS ferrous gluconate 324 mg (37.5 mg iron) tablet 324 mg PO BID Qty: 60 3RF insulin glargine [Lantus Solostar U-100 Insulin] 100 unit/mL (3 mL) insulin pen 68 unit SUBCUT DAILY Rx Instructions: 68 UNIT (0.68 ML) SUBCUTANEOUSLY DAILY nystatin 100,000 unit/gram cream 1 applic TOPICAL TID mupirocin 2 % ointment 1 applic topical DAILY Qty: 50 0RF Discharge Orders: Discharge ED (Routine); Ordered 04/23/24 Ordered By: Nils Glynn Referrals: Kristine Rodriguez MD [Primary Care Provider] - 4-7 days Patient Instructions: Pulmonary Edema (ED), Opioid Safety, Pain Management Activity Restrictions/Additional Instructions: Return for worsening shortness of breath, fever, cough, sputum production, other concerning symptoms. See your doctor next week. Coding Level of Care Code ED [employer] for Chg Fwd Documented by User: Nils Glynn, 04/23/24 20:29 HPI - SOB/Dyspnea General: Chief Complaint: Shortness of Breath/Dyspnea Stated Complaint: sob Time Seen by Provider: 04/23/24 18:40 History of Present Illness: HPI Narrative: 69-year-old female seen earlier by Dr. Julien. She has a history of congestive heart failure. She presents short of breath. Related Data Home Medications Medication Instructions Recorded Confirmed aspirin 81 mg tablet,delayed 81 mg PO DAILY 11/18/23 04/12/24 release (Adult Aspirin Regimen) pramipexole 0.5 mg tablet 0.5 mg PO BEDTIME 03/07/24 04/12/24 insulin glargine 100 unit/mL (3 68 unit SUBCUT DAILY 04/12/24 04/12/24 mL) subcutaneous pen (Lantus Solostar U-100 Insulin) nystatin 100,000 unit/gram topical 1 applic topical TID 04/12/24 04/12/24 cream Previous Rx's Medication Instructions Recorded nitroglycerin 0.4 mg sublingual 0.4 mg sublingual Q5M PRN Chest 04/15/22 tablet Pain #25 tabs blood-glucose meter,continuous #1 ea 02/08/23 (Dexcom G7 Health Care Social Worker) pantoprazole 40 mg tablet,delayed 40 mg PO BID 8 weeks #112 tabs 10/31/23 release (Protonix) apixaban 5 mg tablet (Eliquis) 5 mg PO BID 30 days #60 tabs 12/06/23 atorvastatin 40 mg tablet 40 mg PO DAILY #90 tabs 12/06/23 metoprolol tartrate 100 mg tablet 150 mg (1.5 x 100 mg) PO Q12H 90 12/06/23 days #270 tabs insulin aspart U-100 100 unit/mL 14 unit (0.14 mL) SUBCUT TID #15 mL 12/28/23 (3 mL) subcutaneous pen (Novolog FlexPen U-100 Insulin aspart) sucralfate 1 gram tablet (Carafate) 1 g PO BID #60 tabs 02/06/24 risperidone 0.25 mg tablet 0.25 mg PO .qhs #30 tabs 02/23/24 blood-glucose sensor (Dexcom G7 #1 ea 02/27/24 Sensor device) budesonide 1 mg/2 mL suspension 0.5 mg inhalation BID #60 mL 03/14/24 for nebulization nebulizers #1 ea 03/14/24 diaper,brief,adult,disposable #360 ea 03/25/24 (Depend Underwear For Women XL) albuterol sulfate 2.5 mg/3 mL 2.5 mg (3 mL) inhalation Q6H #150 03/27/24 (0.083 %) solution for nebulization vials albuterol sulfate 90 mcg/actuation 2 puff inhalation Q6H PRN 03/27/24 aerosol inhaler shortness of breath or wheezing #8.5 grams famotidine 20 mg tablet 20 mg PO BID 90 days #180 tabs 03/27/24 furosemide 40 mg tablet 80 mg (2 x 40 mg) PO BID weight 03/27/24 gain or shortness breath #120 tabs potassium chloride 20 mEq 20 meq PO BID PRN with lasix only 03/27/24 tablet,extended release(part/cryst) 90 days #180 tabs pregabalin 75 mg capsule 75 mg PO BID 30 days #60 caps 03/27/24 ferrous gluconate 324 mg (37.5 mg 324 mg PO BID #60 tabs 03/31/24 iron) tablet pen needle, diabetic 31 gauge x #100 ea 04/03/24 5/16 (BD Ultra-Fine Short Pen Needle) empagliflozin 10 mg tablet 10 mg PO DAILY 30 days #30 tabs 04/05/24 (Jardiance) mupirocin 2 % topical ointment 1 applic topical DAILY #50 grams 04/12/24 buspirone 15 mg tablet 15 mg PO TID PRN anxiety #90 tabs 04/19/24 cholecalciferol (vitamin D3) 1,250 See Rx Instructions .Route 04/26/24 mcg (50,000 unit) capsule .COMPLEX #4 caps Allergies Allergy/AdvReac Type Severity Reaction Status Date / Time propoxyphene [From Darvon] Allergy Unknown Unknown Verified 04/11/24 00:41 fluoxetine [From Prozac] AdvReac Severe ADR-Halluci Verified 04/11/24 00:41 [facility] ED PFS: Medical History Smoking Chronic anticoagulation initiated apixaban 08/2020 for paroxysmal atrial fibrillation Hypertension, benign Paroxysmal atrial fibrillation (~08/2020) Congestive heart failure Encephalopathy acute Polypharmacy Atrial flutter Tachy-andra syndrome Acute anemia Rotator cuff dysfunction Smoking addiction Insomnia Wheelchair bound Oxygen dependent 2 L at home Small bowel obstruction History of colonic diverticulitis Paroxysmal SVT (supraventricular tachycardia) Nicotine dependence, cigarettes, with other nicotine-induced disorders DM type 2 (diabetes mellitus, type 2) Chest pain Atypical chest pain Paroxysmal A-fib NNOA (obstructive sleep apnea) Uses CPAP Fibromyalgia Peripheral Vascular Disease Mixed stress and urge urinary incontinence Chronic pain syndrome Due to her weight and other comorbidities I do not think that there is much that pain management would be able to do. They can do localized injections or treatments on specific joints but she would never be a surgical candidate. Bipolar depression Overactive bladder RLS (restless legs syndrome) Constipation, chronic COPD (chronic obstructive pulmonary disease) GERD (gastroesophageal reflux disease) CAD (coronary artery disease) Diabetes mellitus type 2 in obese Hyperlipemia Chronic headache Panic disorder [episodic paroxysmal anxiety] Generalized anxiety disorder Major depressive disorder, recurrent, moderate Surgical History Hx of tubal ligation Hx of colonoscopy 10 + years H/O: hysterectomy Hx of cholecystectomy S/P appendectomy H/O thyroidectomy Family History Mother , at age 75 Hypertension Father , at age 87 Hypertension Denies family history of Lung disease Stroke Social History Smoking and tobacco/nicotine status: never used tobacco/nicotine Alcohol intake: never Substance/Drug Use: never Adopted: No Caregiver/support person: No Lives independently: Yes Household members: none Housing: Apartment Marital status: / Number of children: 8 Number of grandchildren: 14 Highest education level completed: Some College, No Degree service: No Current occupational status: disabled Pets and animals: Yes Pets & animals: dog(s) Leisure activites: art, music, reading and other Sexually active: No Do you think of yourself as: Straight/Heterosexual Current gender identity: Female Lilliam/Sikhism: Jehovah'S Witness Special lilliam needs: No Agree to transfusion: Yes Course Vital Signs: Vital signs: Vital Signs Temperature 97.8 F 04/23/24 17:28 Pulse Rate 67 04/23/24 20:18 Respiratory Rate 20 H 04/23/24 17:28 Blood Pressure 129/62 04/23/24 20:18 Pulse Oximetry 99 04/23/24 20:18 Oxygen Delivery Me thod Nasal Cannula 04/23/24 17:28 Oxygen Flow Rate 4 04/23/24 17:28 MDM - SOB/Dyspnea Medical Decision Making Care signed out to Dr. Glynn at change of shift. See final notes for diagnosis and disposition. 69-year-old female. Checked out at shift change. She is feeling much improved after 80 of Lasix and good diuresis of well over a liter. Saturations are 98% plus on pulse ox on her home 4 L of oxygen. She is afebrile. Her blood pressure is controlled. Her hemoglobin is improved from prior at 8.3. She wishes to go home. Chest x-ray is negative. She will be allowed discharge. She is to continue her Lasix at current dosage given her good diuresis here. Lab Data 04/23/24 18:25 04/23/24 18:25 Labs/Radiology: Radiology Impressions Chest X-Ray 04/23/24 17:30 IMPRESSION: No acute findings. Laboratory Results WBC 8.88 10^3/uL (3.29-11.43) 04/23/24 18: RBC 3.71 10^6/uL (3.85-5.65) L 04/23/24 18:25 Hgb 8.30 g/dL (11.27-16.99) L 04/23/24 18:25 Hct 29.1 % (36-47) L 04/23/24 18: MCV 78.4 fl (85-98) L 04/23/24 18:25 MCH 22.4 pg (27-33) L 04/23/24 18:25 MCHC 28.5 g/dL (30-55) L 04/23/24 18: RDW 24.2 % (12.1-15.1) H 04/23/24 18: Plt Count 293 10^3/cmm (157-399) 04/23/24 18: MPV 11.1 fL (7.4-10.4) H 04/23/24 18: Neut % (Auto) 66.6 % 04/23/24 18:25 Lymph % (Auto) 22.1 % 04/23/24 18:25 [place] % (Auto) 9.3 % 04/23/24 18: Eos % (Auto) 1.6 % 04/23/24 18: Baso % (Auto) 0.2 % 04/23/24 18: Neut # (Auto) 5.91 10^3/uL (1.8-7.7) 04/23/24 18: Lymph # (Auto) 2.0 10^3/uL (0.8-4.8) 04/23/24 18:25 [place] # (Auto) 0.8 10^3/uL (0.2-0.9) 04/23/24 18: Eos # (Auto) 0.1 10^3/uL (0.0-0.8) 04/23/24 18: Baso # (Auto) 0.0 10^3/uL (0.0-0.1) 04/23/24 18: Nucleated RBC % (auto) 0 % 04/23/24 18: Nucleated RBCs # 0.0 /100WBC 04/23/24 18:25 Sodium 141 mmol/L (136-145) 04/23/24 18:25 Potassium 4.0 mmol/L (3.5-5.1) 04/23/24 18:25 Chloride 105 mmol/L (98-107) 04/23/24 18:25 Carbon Dioxide 28 mmol/L (22-29) 04/23/24 18:25 Anion Gap 12.0 (5-19) 04/23/24 18:25 BUN 12 mg/dL (8-23) 04/23/24 18:25 Creatinine 1.1 mg/dL (0.5-0.9) H 04/23/24 18:25 GFR Calculation 49.5 mL/min (90-130) L 04/23/24 18:25 Glucose 206 mg/dL (65-115) H 04/23/24 18:25 Calculated Osmolality 298 mOsm/kg (285-295) H 04/23/24 18:25 Calcium 8.7 mg/dL (8.5-10.5) 04/23/24 18:25 Total Bilirubin 0.4 mg/dL (0.15-1.2) 04/23/24 18:25 AST 24 U/L (0-32) 04/23/24 18:25 ALT 10 U/L (0-33) 04/23/24 18:25 Alkaline Phosphatase 148 U/L (35-105) H 04/23/24 18:25 NT-Pro-B Natriuret Pep 2196 pg/mL (0-125) H 04/23/24 18:25 Total Protein 6.8 g/dL (6.6-8.7) 04/23/24 18:25 Albumin 3.2 g/dL (3.5-5.2) L 04/23/24 18:25 Globulin 3.6 g/dL (1.3-4.6) 04/23/24 18:25 Coronavirus (PCR) Negative (Negative) 04/23/24 17:35 Influenza A (PCR) Negative (Negative) 04/23/24 17:35 Influenza Type B (PCR) Negative (Negative) 04/23/24 17:35 RSV (PCR) Negative (Negative) 04/23/24 17:35 All radiology interpretation(s) finalized by discharge Discharge Plan Discharge Patient Disposition: Home Clinical Impression: Anemia, Chronic respiratory failure with hypoxia Congestive heart failure Qualifiers: Heart failure type: unspecified Heart failure chronicity: chronic Qualified Code(s): I50.9 - Heart failure, unspecified Condition: Stable Prescriptions: No Action insulin aspart U-100 [Novolog FlexPen U-100 Insulin] 100 unit/mL (3 mL) insulin pen 14 unit SUBCUT TID Qty: 15 3RF Rx Instructions: May substitute for formulary aspirin [Adult Aspirin Regimen] 81 mg tablet,delayed release (DR/EC) 81 mg PO DAILY Hold Instructions: bleeding Eliquis 5 mg tablet 5 mg PO BID 30 Days Qty: 60 5RF Hold Instructions: Resume on 11/21/23. atorvastatin 40 mg tablet 40 mg PO DAILY Qty: 90 2RF metoprolol tartrate 100 mg tablet 150 mg PO Q12H 90 Days Qty: 270 1RF sucralfate [Carafate] 1 gram tablet 1 g PO BID Qty: 60 2RF nitroglycerin 0.4 mg tablet, sublingual 0.4 mg SUBLINGUAL Q5M PRN (Reason: Chest Pain) Qty: 25 2RF risperidone 0.25 mg tablet 0.25 mg PO .qhs Qty: 30 3RF Hold Instructions: see pcp pregabalin 75 mg capsule 75 mg PO BID 30 Days Qty: 60 3RF furosemide 40 mg tablet 80 mg PO BID Qty: 120 5RF Rx Instructions: 2 in AM, 2 @ noon albuterol sulfate 90 mcg/actuation HFA aerosol inhaler 2 puff INHALATION Q6H PRN (Reason: shortness of breath or wheezing) Qty: 8.5 5RF albuterol sulfate 2.5 mg /3 mL (0.083 %) solution for nebulization 2.5 mg inhalation Q6H Qty: 150 1RF famotidine 20 mg tablet 20 mg PO BID 90 Days Qty: 180 1RF potassium chloride 20 mEq tablet,ER particles/crystals 20 meq PO BID PRN (Reason: with lasix only) 90 Days Qty: 180 1RF (DME) nebulizers Misc See Rx Instructions .MEDSUPPLY Qty: 1 0RF Rx Instructions: As directed budesonide 1 mg/2 mL suspension for nebulization 0.5 mg inhalation BID Qty: 60 1RF Jardiance 10 mg tablet 10 mg PO DAILY 30 Days Qty: 30 5RF (DME) Dexcom G7 Health Care Social Worker Misc See Rx Instructions .Route Qty: 1 0RF Rx Instructions: As directed (DME) Dexcom G7 Sensor Device See Rx Instructions .ROUTE .COMPLEX Qty: 1 3RF Dose Instruction: USE TO MONITOR BLOOD SUGAR DIRECTED BY DOCTOR CHANGE SENSOR EVERY 10 DAYS Rx Instructions: USE TO MONITOR BLOOD SUGAR DIRECTED BY DOCTOR CHANGE SENSOR EVERY 10 DAYS (DME) Depend Underwear For Women XL [facility] See Rx Instructions .Route Qty: 360 11RF Rx Instructions: As directed, 12 daily T4528 (DME) pen needle, diabetic [BD Ultra-Fine Short Pen Needle] 31 gauge x 5/16 needle See Rx Instructions .ROUTE .COMPLEX Qty: 100 2RF Dose Instruction: TO USE WITH INSULIN 4 TIMES DAILY Rx Instructions: TO USE WITH INSULIN 4 TIMES DAILY buspirone 15 mg tablet 15 mg PO TID PRN (Reason: anxiety) Qty: 90 3RF cholecalciferol (vitamin D3) 1,250 mcg (50,000 unit) capsule See Rx Instructions .ROUTE .COMPLEX Qty: 4 0RF Dose Instruction: TAKE ONE CAPSULE BY MOUTH WEEKLY ON MONDAYS NEED VITAMIN D LEVEL BEFORE NEXT DR VISIT Rx Instructions: TAKE ONE CAPSULE BY MOUTH WEEKLY ON MONDAYS NEED VITAMIN D LEVEL BEFORE NEXT DR VISIT pantoprazole [Protonix] 40 mg tablet,delayed release (DR/EC) 40 mg PO BID 56 Days Qty: 112 3RF pramipexole 0.5 mg tablet 0.5 mg PO BEDTIME Rx Instructions: TAKE ONE TABLET BY MOUTH AT BEDTIME FOR 90 DAYS ferrous gluconate 324 mg (37.5 mg iron) tablet 324 mg PO BID Qty: 60 3RF insulin glargine [Lantus Solostar U-100 Insulin] 100 unit/mL (3 mL) insulin pen 68 unit SUBCUT DAILY Rx Instructions: 68 UNIT (0.68 ML) SUBCUTANEOUSLY DAILY nystatin 100,000 unit/gram cream 1 applic TOPICAL TID mupirocin 2 % ointment 1 applic topical DAILY Qty: 50 0RF Discharge Orders: Discharge ED (Routine); Ordered 04/23/24 Ordered By: Nils Glynn Referrals: Kristine Rodriguez MD [Primary Care Provider] - 4-7 days Patient Instructions: Pulmonary Edema (ED), Opioid Safety, Pain Management Activity Restrictions/Additional Instructions: Return for worsening shortness of breath, fever, cough, sputum production, other concerning symptoms. See your doctor next week. Coding Level of Care Code ED Industrial Garage Servicer for Urvashi Shaw
--- NOTE | 2024-04-23 18:01 | ECG_ITS ---
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 Measurements Intervals [place] Rate: 64 P: 0 [place]: 0 QRS: 72 QRSD: 89 T: -4 QT: 395 QTc: 408 Interpretive Statements ATRIAL FIBRILLATION LOW QRS VOLTAGE IN PRECORDIAL LEADS [QRS DEFLECTION < 1.0 mV IN CHEST LEADS] POSSIBLE ANTERIOR MYOCARDIAL INFARCTION , PROBABLY OLD [30 ms Q WAVE IN V3/V4, OR R < 0.2 mV IN V4] Compared to ECG 04/09/2024 11:02:04 Junctional rhythm no longer present Myocardial infarct finding still present Electronically Signed On 04-23-2024 19:55:09 RESIDENTIAL THERAPIST by Kevon Ge M.D. [email or web address]
[2024-04-23 18:30] VITALS: BP 115/64; PULSE 63; O2SAT 99
[2024-04-23] MEDS: FUROsemide 10 mg/mL SDV 10mL 80 MG IVP (18:30)
[2024-04-23 18:33] LABS: Basophils % 0.2 %; Eosinophils # 0.1 10^3/uL (0.0-0.8); Eosinophils % 1.6 %; Hematocrit 29.1 % (36-47); Lymphocytes % 22.1 %; Mean Corpuscular HGB Conc 28.5 g/dL (30-55); Mean Corpuscular Hemoglobin 22.4 pg (27-33); Mean Corpuscular Volume 78.4 fl (85-98); Mean Platelet Volume 11.1 fL (7.4-10.4); Monocytes # 0.8 10^3/uL (0.2-0.9); Monocytes % 9.3 %; Neutrophils # 5.91 10^3/uL (1.8-7.7); Neutrophils % 66.6 %; Nucleated Red Blood Cells % 0 %; Platelet Count 293 10^3/cmm (157-399); Red Blood Count 3.71 10^6/uL (3.85-5.65); Red Cell Distribution Width 24.2 % (12.1-15.1); White Blood Count 8.88 10^3/uL (3.29-11.43)
[2024-04-23 18:59] LABS: Alanine Aminotransferase 10 U/L (0-33); Albumin Level 3.2 g/dL (3.5-5.2); Alkaline Phosphatase 148 U/L (35-105); Aspartate Amino Transferase 24 U/L (0-32); Blood Urea Nitrogen 12 mg/dL (8-23); Calcium 8.7 mg/dL (8.5-10.5); Carbon Dioxide 28 mmol/L (22-29); Chloride 105 mmol/L (98-107); Creatinine Clr Calc Pharmacy 65.5148; Globulin 3.6 g/dL (1.3-4.6); Glomerular Filtration Rate 49.5 mL/min (90-130); Glucose 206 mg/dL (65-115); NT Pro B Type Natriuretic Pept 2196 pg/mL (0-125); Osmolality Calculated 298 mOsm/kg (285-295); Sodium 141 mmol/L (136-145); Total Bilirubin 0.4 mg/dL (0.15-1.2); Total Protein 6.8 g/dL (6.6-8.7)
[2024-04-23 19:14] LABS: Covid PCR NEGATIVE (Negative); Influenza A NEGATIVE (Negative); Influenza B NEGATIVE (Negative); Respiratory Syncytial Virus Ce NEGATIVE (Negative)
[2024-04-23 19:30] VITALS: BP 138/78; PULSE 66; O2SAT 99
[2024-04-23 20:18] VITALS: BP 129/62; PULSE 67; O2SAT 99
== END 2024-04-23 20:19 | disposition home or self-care (01) ==
PROVIDERS: Family Medicine; Emergency Provider Emergency Medicine; PCP Family Medicine
DX: I11.0 Hypertensive heart disease with heart failure (principal); I50.9 Heart failure, unspecified; J96.11 Chronic respiratory failure with hypoxia; Z99.81 Dependence on supplemental oxygen; D64.9 Anemia, unspecified; Z79.4 Long term (current) use of insulin; Z11.52 Encounter for screening for COVID-19; E11.9 Type 2 diabetes mellitus without complications; E78.5 Hyperlipidemia, unspecified
CPT/HCPCS: 0241U; 36415; 71045; 80053; 83880; 85025; 93005; 96374; 99285; J1940

== ENCOUNTER 2024-04-29 21:06 | Emergency (ER) | payer MEDICARE, MEDICAID, SELFPAY ==
[2024-03-15 13:57] VITALS: BP 121/48; BMI 48.4
[2024-04-29 21:09] VITALS: BP 141/53; PULSE 65; RESP 24; TEMP 36.6; O2SAT 99; BMI 31.4
[2024-04-29 21:16] VITALS: BP 141/53; PULSE 63; RESP 16; O2SAT 98
--- NOTE | 2024-04-29 21:23 | XRR_ITS ---
PROCEDURE INFORMATION: Exam: XR Chest Exam date and time: 04/29/2024 9:31 PM Age: 69 years old Clinical indication: Shortness of breath; Patient HX: C/O SOB; Additional info: Dyspnea TECHNIQUE: Imaging protocol: Radiologic exam of the chest. Views: 1 view. COMPARISON: CR (CHEST, ) 04/23/2024 5:32 PM FINDINGS: Lungs: Unremarkable. No consolidation. Pleural spaces: Unremarkable. No pleural effusion. No pneumothorax. Heart/Mediastinum: Mild cardiomegaly. Bones/joints: Unremarkable. XR/XR chest 1V portable [id number] IMPRESSION: As above.
--- NOTE | 2024-04-29 21:29 | ED_ITS ---
HPI - SOB/Dyspnea 2 General: Chief Complaint: Shortness of Breath/Dyspnea Stated Complaint: SOB Time Seen by Provider: 04/29/24 21:22 History of Present Illness: HPI Narrative: Who presents to the ER with shortness of breath over the last hour. Patient does have a history of CHF, COPD, patient's bilateral lower extremities are edematous and weeping but she says this is chronic. Patient appears nontoxic in no acute distress but O2 sat of 98% on room air. Related Data Home Medications Medication Instructions Recorded Confirmed aspirin 81 mg tablet,delayed 81 mg PO DAILY 11/18/23 04/12/24 release (Adult Aspirin Regimen) pramipexole 0.5 mg tablet 0.5 mg PO BEDTIME 03/07/24 04/12/24 insulin glargine 100 unit/mL (3 68 unit SUBCUT DAILY 04/12/24 04/12/24 mL) subcutaneous pen (Lantus Solostar U-100 Insulin) nystatin 100,000 unit/gram topical 1 applic topical TID 04/12/24 04/12/24 cream Previous Rx's Medication Instructions Recorded nitroglycerin 0.4 mg sublingual 0.4 mg sublingual Q5M PRN Chest 04/15/22 tablet Pain #25 tabs blood-glucose meter,continuous #1 ea 02/08/23 (Dexcom G7 Telehealth Nurse Educator) pantoprazole 40 mg tablet,delayed 40 mg PO BID 8 weeks #112 tabs 10/31/23 release (Protonix) apixaban 5 mg tablet (Eliquis) 5 mg PO BID 30 days #60 tabs 12/06/23 atorvastatin 40 mg tablet 40 mg PO DAILY #90 tabs 12/06/23 metoprolol tartrate 100 mg tablet 150 mg (1.5 x 100 mg) PO Q12H 90 12/06/23 days #270 tabs insulin aspart U-100 100 unit/mL 14 unit (0.14 mL) SUBCUT TID #15 mL 12/28/23 (3 mL) subcutaneous pen (Novolog FlexPen U-100 Insulin aspart) sucralfate 1 gram tablet (Carafate) 1 g PO BID #60 tabs 02/06/24 risperidone 0.25 mg tablet 0.25 mg PO .qhs #30 tabs 02/23/24 blood-glucose sensor (Dexcom G7 #1 ea 02/27/24 Sensor device) budesonide 1 mg/2 mL suspension 0.5 mg inhalation BID #60 mL 03/14/24 for nebulization nebulizers #1 ea 03/14/24 diaper,brief,adult,disposable #360 ea 03/25/24 (Depend Underwear For Women XL) albuterol sulfate 2.5 mg/3 mL 2.5 mg (3 mL) inhalation Q6H #150 03/27/24 (0.083 %) solution for nebulization vials albuterol sulfate 90 mcg/actuation 2 puff inhalation Q6H PRN 03/27/24 aerosol inhaler shortness of breath or wheezing #8.5 grams famotidine 20 mg tablet 20 mg PO BID 90 days #180 tabs 03/27/24 furosemide 40 mg tablet 80 mg (2 x 40 mg) PO BID weight 03/27/24 gain or shortness breath #120 tabs potassium chloride 20 mEq 20 meq PO BID PRN with lasix only 03/27/24 tablet,extended release(part/cryst) 90 days #180 tabs pregabalin 75 mg capsule 75 mg PO BID 30 days #60 caps 03/27/24 ferrous gluconate 324 mg (37.5 mg 324 mg PO BID #60 tabs 03/31/24 iron) tablet pen needle, diabetic 31 gauge x #100 ea 04/03/2409/14 (BD Ultra-Fine Short Pen Needle) empagliflozin 10 mg tablet 10 mg PO DAILY 30 days #30 tabs 04/05/24 (Jardiance) mupirocin 2 % topical ointment 1 applic topical DAILY #50 grams 04/12/24 buspirone 15 mg tablet 15 mg PO TID PRN anxiety #90 tabs 04/19/24 cholecalciferol (vitamin D3) 1,250 See Rx Instructions .Route 04/26/24 mcg (50,000 unit) capsule .COMPLEX #4 caps Allergies Allergy/AdvReac Type Severity Reaction Status Date / Time propoxyphene [From Darvon] Allergy Unknown Unknown Verified 04/29/24 21:16 fluoxetine [From Prozac] AdvReac Severe ADR-Halluci Verified 04/29/24 21:16 nating Review of Systems 2 General: Reports: 10 or more systems reviewed and unremarkable except in HPI and below PFSH ED 2 PFSH: Medical History Smoking Chronic anticoagulation initiated apixaban 08/2020 for paroxysmal atrial fibrillation Hypertension, benign Paroxysmal atrial fibrillation (~08/2020) Congestive heart failure Encephalopathy acute Polypharmacy Atrial flutter Tachy-andra syndrome Acute anemia Rotator cuff dysfunction Smoking addiction Insomnia Wheelchair bound Oxygen dependent 2 L at home Small bowel obstruction History of colonic diverticulitis Paroxysmal SVT (supraventricular tachycardia) Nicotine dependence, cigarettes, with other nicotine-induced disorders DM type 2 (diabetes mellitus, type 2) Chest pain Atypical chest pain Paroxysmal A-fib NONA (obstructive sleep apnea) Uses CPAP Fibromyalgia Peripheral Vascular Disease Mixed stress and urge urinary incontinence Chronic pain syndrome Due to her weight and other comorbidities I do not think that there is much that pain management would be able to do. They can do localized injections or treatments on specific joints but she would never be a surgical candidate. Bipolar depression Overactive bladder RLS (restless legs syndrome) Constipation, chronic COPD (chronic obstructive pulmonary disease) GERD (gastroesophageal reflux disease) CAD (coronary artery disease) Diabetes mellitus type 2 in obese Hyperlipemia Chronic headache Panic disorder [episodic paroxysmal anxiety] Generalized anxiety disorder Major depressive disorder, recurrent, moderate Surgical History Hx of tubal ligation Hx of colonoscopy 10 + years H/O: hysterectomy Hx of cholecystectomy S/P appendectomy H/O thyroidectomy Family History Mother , at age 75 Hypertension Father , at age 87 Hypertension Denies family history of Lung disease Stroke Social History Smoking and tobacco/nicotine status: never used tobacco/nicotine Alcohol intake: never Substance/Drug Use: never Adopted: No Caregiver/support person: No Lives independently: Yes Household members: none Housing: Apartment Marital status: / Number of children: 8 Number of grandchildren: 14 Highest education level completed: Some College, No Degree service: No Current occupational status: disabled Pets and animals: Yes Pets & animals: dog(s) Leisure activites: art, music, reading and other Sexually active: No Do you think of yourself as: Straight/Heterosexual Current gender identity: Female Lilliam/Faith: Yarsanism Special lilliam needs: No Agree to transfusion: Yes Female Reproductive History: Para: 8 Spontaneous abortions: No Physical Exam 2 Const: COMMON NORMALS: no acute distress, average body habitus, patient oriented x3, no limitations, healthy appearing, alert and well nourished HENMT: COMMON NORMALS: normocephalic, atraumatic, hearing grossly normal bilaterally, external ears normal, Normal external nose present and moist oral mucous membranes HEAD & SCALP: normocephalic and atraumatic NOSE: Normal external nose present EXTERNAL EAR: Yes external ears normal Neck/C-Spine: COMMON NORMALS: no JVD Chest: COMMONS NORMALS: normal inspection of the chest and normal palpation of entire chest wall Resp: COMMON NORMALS: normal respiratory effort, No retractions, No use of accessory muscles and clear to auscultation bilaterally (Decreased breath sounds bilateral) AUSCULTATION: clear to auscultation bilaterally (Decreased breath sounds bilateral) Cardio: COMMON NORMALS: no JVD, regular rate, regular rhythm, S1 normal heart sound present, S2 normal heart sound present, No gallops present (Cardio), No clicks present (Cardio), No murmurs present (Cardio) and No rub (Cardio) R ATE: regular rate RHYTHM: regular rhythm HEART SOUNDS: S1 normal heart sound present and S2 normal heart sound present GI: COMMON NORMALS: Normal to inspection, nondistended, normoactive bowel sounds present, Soft to palpation, non-tender, No hepatosplenomegaly present and no masses PALPATION: Yes Soft to palpation and Yes No hepatosplenomegaly present Extremity: NARRATIVE EXTREMITY EXAM: Edematous weeping bilateral lower extremities Neuro: COMMON NORMALS: patient oriented x3 SENSORIUM/ORIENTATION: Yes alert Course 2 Vital Signs: Vital signs: Vital Signs Temperature 97.8 F 04/29/24 21:09 Pulse Rate 63 04/29/24 22:20 Respiratory Rate 18 04/29/24 22:20 Blood Pressure 114/58 04/29/24 22:20 Pulse Oximetry 100 04/29/24 22:20 Oxygen Delivery Me thod Room Air 04/29/24 21:09 MDM - SOB/Dyspnea Medical Decision Making Chest x-ray was reviewed as well as lab work, patient is anemic with a hemoglobin 8.3 but this is stable, BNP slightly elevated 2088, patient was given a dose of 40 mg of Lasix in the ER. Patient be prescribed 40 mg Lasix daily for the next 5 days. Patient follow-up with her PCP within next 7 days. Medical Records I reviewed the patient's medical records. Lab Data I reviewed the patient's lab results. 04/29/24 21:43 04/29/24 21:43 Labs/Radiology: Radiology Impressions Chest X-Ray 04/29/24 21:23 IMPRESSION: As above. Laboratory Results WBC 6.57 10^3/uL (3.29-11.43) 04/29/24 21:43 RBC 3.63 10^6/uL (3.85-5.65) L 04/29/24 21:43 Hgb 8.30 g/dL (11.27-16.99) L 04/29/24 21:43 Hct 29.6 % (36-47) L 04/29/24 21:43 MCV 81.5 fl (85-98) L 04/29/24 21:43 MCH 22.9 pg (27-33) L 04/29/24 21:43 MCHC 28.0 g/dL (30-55) L 04/29/24 21:43 RDW 26.1 % (12.1-15.1) H 04/29/24 21:43 Plt Count 185 10^3/cmm (157-399) 04/29/24 21:43 MPV 10.7 fL (7.4-10.4) H 04/29/24 21:43 Neut % (Auto) 65.3 % 04/29/24 21:43 Lymph % (Auto) 22.8 % 04/29/24 21:43 [place] % (Auto) 9.0 % 04/29/24 21:43 Eos % (Auto) 2.1 % 04/29/24 21:43 Baso % (Auto) 0.6 % 04/29/24 21:43 Neut # (Auto) 4.29 10^3/uL (1.8-7.7) 04/29/24 21:43 Lymph # (Auto) 1.5 10^3/uL (0.8-4.8) 04/29/24 21:43 [place] # (Auto) 0.6 10^3/uL (0.2-0.9) 04/29/24 21:43 Eos # (Auto) 0.1 10^3/uL (0.0-0.8) 04/29/24 21:43 Baso # (Auto) 0.0 10^3/uL (0.0-0.1) 04/29/24 21:43 Nucleated RBC % (auto) 0 % 04/29/24 21:43 Nucleated RBCs # 0.0 /100WBC 04/29/24 21:43 Sodium 140 mmol/L (136-145) 04/29/24 21:43 Potassium 4.1 mmol/L (3.5-5.1) 04/29/24 21:43 Chloride 103 mmol/L (98-107) 04/29/24 21:43 Carbon Dioxide 29 mmol/L (22-29) 04/29/24 21:43 Anion Gap 12.1 (5-19) 04/29/24 21:43 BUN 11 mg/dL (8-23) 04/29/24 21:43 Creatinine 0.9 mg/dL (0.5-0.9) 04/29/24 21:43 GFR Calculation 62.5 mL/min (90-130) L 04/29/24 21:43 Glucose 212 mg/dL (65-115) H 04/29/24 21:43 Calculated Osmolality 296 mOsm/kg (285-295) H 04/29/24 21:43 Lactic Acid 1.3 mmol/L (0.5-2.2) 04/29/24 21:43 Calcium 8.7 mg/dL (8.5-10.5) 04/29/24 21:43 Magnesium 2.0 mg/dL (1.7-2.3) 04/29/24 21:43 Total Bilirubin 0.5 mg/dL (0.15-1.2) 04/29/24 21:43 AST 35 U/L (0-32) H 04/29/24 21:43 ALT 11 U/L (0-33) 04/29/24 21:43 Alkaline Phosphatase 189 U/L (35-105) H 04/29/24 21:43 NT-Pro-B Natriuret Pep 2089 pg/mL (0-125) H 04/29/24 21:43 Total Protein 6.8 g/dL (6.6-8.7) 04/29/24 21:43 Albumin 3.3 g/dL (3.5-5.2) L 04/29/24 21:43 Globulin 3.5 g/dL (1.3-4.6) 04/29/24 21:43 All radiology interpretation(s) finalized by discharge Discharge Plan Discharge Patient Disposition: Home Clinical Impression: Breath shortness Edema Qualifiers: Edema type: localized Qualified Code(s): R60.0 - Localized edema Condition: Stable Prescriptions: No Action insulin aspart U-100 [Novolog FlexPen U-100 Insulin] 100 unit/mL (3 mL) insulin pen 14 unit SUBCUT TID Qty: 15 3RF Rx Instructions: May substitute for formulary aspirin [Adult Aspirin Regimen] 81 mg tablet,delayed release (DR/EC) 81 mg PO DAILY Hold Instructions: bleeding Eliquis 5 mg tablet 5 mg PO BID 30 Days Qty: 60 5RF Hold Instructions: Resume on 11/21/23. atorvastatin 40 mg tablet 40 mg PO DAILY Qty: 90 2RF metoprolol tartrate 100 mg tablet 150 mg PO Q12H 90 Days Qty: 270 1RF sucralfate [Carafate] 1 gram tablet 1 g PO BID Qty: 60 2RF nitroglycerin 0.4 mg tablet, sublingual 0.4 mg SUBLINGUAL Q5M PRN (Reason: Chest Pain) Qty: 25 2RF risperidone 0.25 mg tablet 0.25 mg PO .qhs Qty: 30 3RF Hold Instructions: see pcp pregabalin 75 mg capsule 75 mg PO BID 30 Days Qty: 60 3RF furosemide 40 mg tablet 80 mg PO BID Qty: 120 5RF Rx Instructions: 2 in AM, 2 @ noon albuterol sulfate 90 mcg/actuation HFA aerosol inhaler 2 puff INHALATION Q6H PRN (Reason: shortness of breath or wheezing) Qty: 8.5 5RF albuterol sulfate 2.5 mg /3 mL (0.083 %) solution for nebulization 2.5 mg inhalation Q6H Qty: 150 1RF famotidine 20 mg tablet 20 mg PO BID 90 Days Qty: 180 1RF potassium chloride 20 mEq tablet,ER particles/crystals 20 meq PO BID PRN (Reason: with lasix only) 90 Days Qty: 180 1RF (DME) nebulizers Misc See Rx Instructions .MEDSUPPLY Qty: 1 0RF Rx Instructions: As directed budesonide 1 mg/2 mL suspension for nebulization 0.5 mg inhalation BID Qty: 60 1RF Jardiance 10 mg tablet 10 mg PO DAILY 30 Days Qty: 30 5RF (DME) Dexcom G7 Telehealth Nurse Educator [facility] See Rx Instructions .Route Qty: 1 0RF Rx Instructions: As directed (DME) Dexcom G7 Sensor Device See Rx Instructions .ROUTE .COMPLEX Qty: 1 3RF Dose Instruction: USE TO MONITOR BLOOD SUGAR DIRECTED BY DOCTOR CHANGE SENSOR EVERY 10 DAYS Rx Instructions: USE TO MONITOR BLOOD SUGAR DIRECTED BY DOCTOR CHANGE SENSOR EVERY 10 DAYS (DME) Depend Underwear For Women XL Misc See Rx Instructions .Route Qty: 360 11RF Rx Instructions: As directed, 12 daily T4528 (DME) pen needle, diabetic [BD Ultra-Fine Short Pen Needle] 31 gauge x 5/16 needle See Rx Instructions .ROUTE .COMPLEX Qty: 100 2RF Dose Instruction: TO USE WITH INSULIN 4 TIMES DAILY Rx Instructions: TO USE WITH INSULIN 4 TIMES DAILY buspirone 15 mg tablet 15 mg PO TID PRN (Reason: anxiety) Qty: 90 3RF cholecalciferol (vitamin D3) 1,250 mcg (50,000 unit) capsule See Rx Instructions .ROUTE .COMPLEX Qty: 4 0RF Dose Instruction: TAKE ONE CAPSULE BY MOUTH WEEKLY ON MONDAYS NEED VITAMIN D LEVEL BEFORE NEXT DR VISIT Rx Instructions: TAKE ONE CAPSULE BY MOUTH WEEKLY ON MONDAYS NEED VITAMIN D LEVEL BEFORE NEXT DR VISIT pantoprazole [Protonix] 40 mg tablet,delayed release (DR/EC) 40 mg PO BID 56 Days Qty: 112 3RF pramipexole 0.5 mg tablet 0.5 mg PO BEDTIME Rx Instructions: TAKE ONE TABLET BY MOUTH AT BEDTIME FOR 90 DAYS ferrous gluconate 324 mg (37.5 mg iron) tablet 324 mg PO BID Qty: 60 3RF insulin glargine [Lantus Solostar U-100 Insulin] 100 unit/mL (3 mL) insulin pen 68 unit SUBCUT DAILY Rx Instructions: 68 UNIT (0.68 ML) SUBCUTANEOUSLY DAILY nystatin 100,000 unit/gram cream 1 applic TOPICAL TID mupirocin 2 % ointment 1 applic topical DAILY Qty: 50 0RF Discharge Orders: Discharge ED (Routine); Ordered 04/29/24 Ordered By: Juan Del Toro Referrals: Kristine Rodriguez MD [Primary Care Provider] - 1 week Patient Instructions: Dependent Edema, Shortness of Breath (ED) Activity Restrictions/Additional Instructions: Please follow-up with your primary care physician in the next 7 days for further evaluation and treatment. Thank you for choosing [facility] for your healthcare needs today. Please realize that you were seen in the emergency department and that we are providing you with an emergency medical screening exam and this may not be a complete and all exclusive of all testing and/or medical workup we may need to determine your element or severity of your illness. It is very important that you follow-up as instructed with your primary care provider or specialist for the additional evaluation and to discuss your medical treatment plan. You may return to the emergency department should you have concerns or if your condition changes or worsens in any way. Coding Level of Care Code ED Photovoltaic Testing Technician for Urvashi Shaw
[2024-04-29 21:45] VITALS: BP 127/43; PULSE 60; RESP 17; O2SAT 98
[2024-04-29 21:49] LABS: Basophils % 0.6 %; Eosinophils # 0.1 10^3/uL (0.0-0.8); Eosinophils % 2.1 %; Hematocrit 29.6 % (36-47); Lymphocytes # 1.5 10^3/uL (0.8-4.8); Lymphocytes % 22.8 %; Mean Corpuscular Hemoglobin 22.9 pg (27-33); Mean Corpuscular Volume 81.5 fl (85-98); Mean Platelet Volume 10.7 fL (7.4-10.4); Monocytes # 0.6 10^3/uL (0.2-0.9); Neutrophils # 4.29 10^3/uL (1.8-7.7); Neutrophils % 65.3 %; Nucleated Red Blood Cells % 0 %; Platelet Count 185 10^3/cmm (157-399); Red Blood Count 3.63 10^6/uL (3.85-5.65); Red Cell Distribution Width 26.1 % (12.1-15.1); White Blood Count 6.57 10^3/uL (3.29-11.43)
[2024-04-29 22:17] LABS: Lactic Sepsis W/Reflex 1.3 mmol/L (0.5-2.2)
[2024-04-29 22:20] VITALS: BP 114/58; PULSE 63; RESP 18; O2SAT 100
[2024-04-29 22:26] LABS: Alanine Aminotransferase 11 U/L (0-33); Albumin Level 3.3 g/dL (3.5-5.2); Alkaline Phosphatase 189 U/L (35-105); Anion Gap 12.1 (5-19); Aspartate Amino Transferase 35 U/L (0-32); Blood Urea Nitrogen 11 mg/dL (8-23); Calcium 8.7 mg/dL (8.5-10.5); Carbon Dioxide 29 mmol/L (22-29); Chloride 103 mmol/L (98-107); Creatinine Clr Calc Pharmacy 80.5949; Globulin 3.5 g/dL (1.3-4.6); Glomerular Filtration Rate 62.5 mL/min (90-130); Glucose 212 mg/dL (65-115); NT Pro B Type Natriuretic Pept 2089 pg/mL (0-125); Osmolality Calculated 296 mOsm/kg (285-295); Potassium 4.1 mmol/L (3.5-5.1); Sodium 140 mmol/L (136-145); Total Bilirubin 0.5 mg/dL (0.15-1.2); Total Protein 6.8 g/dL (6.6-8.7)
[2024-04-29] MEDS: acetaminophen 500 mg Tablet 1000 MG PO (22:52)
[2024-04-29] MEDS: FUROsemide 10 mg/mL SDV 4mL 40 MG IVP (22:52)
--- NOTE | 2024-04-29 23:03 | PC.NURSE ---
Dr. Del Toro had me give the lasix IM instead of IVP
[2024-04-30 00:03] VITALS: BP 125/41; PULSE 64; O2SAT 99
== END 2024-04-30 00:05 | disposition home or self-care (01) ==
PROVIDERS: Emergency Provider Emergency Medicine; PCP Family Medicine
DX: R06.02 Shortness of breath (principal); R60.0 Localized edema; Z79.4 Long term (current) use of insulin; I25.10 Atherosclerotic heart disease of native coronary artery without angina pectoris; J44.9 Chronic obstructive pulmonary disease, unspecified; E11.9 Type 2 diabetes mellitus without complications; I10 Essential (primary) hypertension
CPT/HCPCS: 36415; 71045; 80053; 83605; 83735; 83880; 85025; 96374; 99284; J1940

== ENCOUNTER 2024-04-30 18:45 | Emergency (ER) | payer MEDICARE, MEDICAID, SELFPAY ==
[2024-03-15 13:57] VITALS: BP 121/48; BMI 48.4
[2024-04-30 18:49] VITALS: PULSE 67; RESP 20; TEMP 36.8; O2SAT 99; BMI 48.5
--- NOTE | 2024-04-30 19:20 | W.ED.ANXIETY ---
HPI - Anxiety General: Chief Complaint: Anxiety Stated Complaint: ANXIETY Time Seen by Provider: 04/30/24 19:01 Source: patient Mode of arrival: EMS Limitations: no limitations History of Present Illness: Patient is a 69-year-old female with extensive past medical history and well-known to the emergency department here presenting by ambulance for anxiety. She was seen here last night for shortness of breath, had unremarkable workup and was discharged home. She was given a dose of Raven last night for peripheral edema, and encouraged to follow-up with primary care within a week for reevaluation. She is chronically on 3 to 4 L of O2. She states that since being home her anxiety has increased so much that she is now having a panic attack and is causing her to hyperventilate. States that her breathing has essentially been unchanged, has no new symptoms to report. States that she does not take anything for anxiety. She states that she has also never discussed this with her primary care provider, she does have a scheduled appointment tomorrow where she is going to discuss this and see if she needs to start being treated for anxiety and panic attacks. She is currently just requesting something for anxiety to ease her stress. She has no other concerning psychological complaints or concerns, including no suicidal or homicidal ideations. MD complaint: anxiety Onset (ago): hour(s) Symptoms: dyspnea Severity: moderate History of similar episodes: Yes Associated symptoms: Deny chest pain, chills, fever(s), headache(s), nausea, palpitations or vomiting Related Data Home Medications Medication Instructions Recorded Confirmed aspirin 81 mg tablet,delayed 81 mg PO DAILY 11/18/23 04/12/24 release (Adult Aspirin Regimen) pramipexole 0.5 mg tablet 0.5 mg PO BEDTIME 03/07/24 04/12/24 insulin glargine 100 unit/mL (3 68 unit SUBCUT DAILY 04/12/24 04/12/24 mL) subcutaneous pen (Lantus Solostar U-100 Insulin) nystatin 100,000 unit/gram topical 1 applic topical TID 04/12/24 04/12/24 cream Previous Rx's Medication Instructions Recorded nitroglycerin 0.4 mg sublingual 0.4 mg sublingual Q5M PRN Chest 04/15/22 tablet Pain #25 tabs blood-glucose meter,continuous #1 ea 02/08/23 (Dexcom G7 Food Science Professor) pantoprazole 40 mg tablet,delayed 40 mg PO BID 8 weeks #112 tabs 10/31/23 release (Protonix) apixaban 5 mg tablet (Eliquis) 5 mg PO BID 30 days #60 tabs 12/06/23 atorvastatin 40 mg tablet 40 mg PO DAILY #90 tabs 12/06/23 metoprolol tartrate 100 mg tablet 150 mg (1.5 x 100 mg) PO Q12H 90 12/06/23 days #270 tabs insulin aspart U-100 100 unit/mL 14 unit (0.14 mL) SUBCUT TID #15 mL 12/28/23 (3 mL) subcutaneous pen (Novolog FlexPen U-100 Insulin aspart) sucralfate 1 gram tablet (Carafate) 1 g PO BID #60 tabs 02/06/24 risperidone 0.25 mg tablet 0.25 mg PO .qhs #30 tabs 02/23/24 blood-glucose sensor (Dexcom G7 #1 ea 02/27/24 Sensor device) budesonide 1 mg/2 mL suspension 0.5 mg inhalation BID #60 mL 03/14/24 for nebulization nebulizers #1 ea 03/14/24 diaper,brief,adult,disposable #360 ea 03/25/24 (Depend Underwear For Women XL) albuterol sulfate 2.5 mg/3 mL 2.5 mg (3 mL) inhalation Q6H #150 03/27/24 (0.083 %) solution for nebulization vials albuterol sulfate 90 mcg/actuation 2 puff inhalation Q6H PRN 03/27/24 aerosol inhaler shortness of breath or wheezing #8.5 grams famotidine 20 mg tablet 20 mg PO BID 90 days #180 tabs 03/27/24 furosemide 40 mg tablet 80 mg (2 x 40 mg) PO BID weight 03/27/24 gain or shortness breath #120 tabs potassium chloride 20 mEq 20 meq PO BID PRN with lasix only 03/27/24 tablet,extended release(part/cryst) 90 days #180 tabs pregabalin 75 mg capsule 75 mg PO BID 30 days #60 caps 03/27/24 ferrous gluconate 324 mg (37.5 mg 324 mg PO BID #60 tabs 03/31/24 iron) tablet pen needle, diabetic 31 gauge x #100 ea 04/03/2409/14 (BD Ultra-Fine Short Pen Needle) empagliflozin 10 mg tablet 10 mg PO DAILY 30 days #30 tabs 04/05/24 (Jardiance) mupirocin 2 % topical ointment 1 applic topical DAILY #50 grams 04/12/24 buspirone 15 mg tablet 15 mg PO TID PRN anxiety #90 tabs 04/19/24 cholecalciferol (vitamin D3) 1,250 See Rx Instructions .Route 04/26/24 mcg (50,000 unit) capsule .COMPLEX #4 caps Allergies Allergy/AdvReac Type Severity Reaction Status Date / Time propoxyphene [From Darvon] Allergy Unknown Unknown Verified 04/29/24 21:16 fluoxetine [From Prozac] AdvReac Severe ADR-Halluci Verified 04/29/24 21:16 duke Review of Systems General: Reports: 10 or more systems reviewed and unremarkable except in HPI and below Const: Denies: fever(s), chills or fatigue Eyes: Denies: change in vision ENMT: Denies: throat pain, ear or mastoid pain or nasal discharge Card: Denies: chest pain, palpitations, swelling of feet/ankles or lightheadedness Resp: Reports: dyspnea; Denies: productive cough or wheezing GI: Denies: abdominal pain, nausea, vomiting, diarrhea or constipation : Denies: flank pain, difficulty voiding, dysuria or urinary frequency Musc: Denies: neck pain, back pain or joint pain Skin/Breast: Denies: rash Neuro: Denies: headache(s), numbness in extremities or weakness in extremities Psych: Reports: anxiety; Denies: suicidal ideation or homicidal ideation PFS ED PFSH: Medical History Smoking Chronic anticoagulation initiated apixaban 08/2020 for paroxysmal atrial fibrillation Hypertension, benign Paroxysmal atrial fibrillation (~08/2020) Congestive heart failure Encephalopathy acute Polypharmacy Atrial flutter Tachy-andra syndrome Acute anemia Rotator cuff dysfunction Smoking addiction Insomnia Wheelchair bound Oxygen dependent 2 L at home Small bowel obstruction History of colonic diverticulitis Paroxysmal SVT (supraventricular tachycardia) Nicotine dependence, cigarettes, with other nicotine-induced disorders DM type 2 (diabetes mellitus, type 2) Chest pain Atypical chest pain Paroxysmal A-fib NONA (obstructive sleep apnea) Uses CPAP Fibromyalgia Peripheral Vascular Disease Mixed stress and urge urinary incontinence Chronic pain syndrome Due to her weight and other comorbidities I do not think that there is much that pain management would be able to do. They can do localized injections or treatments on specific joints but she would never be a surgical candidate. Bipolar depression Overactive bladder RLS (restless legs syndrome) Constipation, chronic COPD (chronic obstructive pulmonary disease) GERD (gastroesophageal reflux disease) CAD (coronary artery disease) Diabetes mellitus type 2 in obese Hyperlipemia Chronic headache Panic disorder [episodic paroxysmal anxiety] Generalized anxiety disorder Major depressive disorder, recurrent, moderate Surgical History Hx of tubal ligation Hx of colonoscopy 10 + years H/O: hysterectomy Hx of cholecystectomy S/P appendectomy H/O thyroidectomy Family History Mother , at age 75 Hypertension Father , at age 87 Hypertension Denies family history of Lung disease Stroke Social History Smoking and tobacco/nicotine status: never used tobacco/nicotine Alcohol intake: never Substance/Drug Use: never Adopted: No Caregiver/support person: No Lives independently: Yes Household members: none Housing: Apartment Marital status: / Number of children: 8 Number of grandchildren: 14 Highest education level completed: Some College, No Degree service: No Current occupational status: disabled Pets and animals: Yes Pets & animals: dog(s) Leisure activites: art, music, reading and other Sexually active: No Do you think of yourself as: Straight/Heterosexual Current gender identity: Female Lilliam/Moravian: Yazdanism Special lilliam needs: No Agree to transfusion: Yes Female Reproductive History: Para: 8 Spontaneous abortions: No Physical Exam Const: COMMON NORMALS: no limitations GENERAL APPEARANCE: cooperative and anxious NUTRITIONAL APPEARANCE: obese morbidly obese ORIENTATION/CONSCIOUSNESS: Yes awake OTHER: Tearful HENMT: COMMON NORMALS: normocephalic, atraumatic and hearing grossly normal bilaterally HEAD & SCALP: normocephalic and atraumatic Eye: COMMON NORMALS: Equal, round and reactive pupils present, EOMs intact bilaterally and conjunctivae normal CONJUNCTIVA: Yes conjunctivae normal PUPIL: Yes Equal, round and reactive pupils present Neck/C-Spine: COMMON NORMALS: full ROM, supple and no JVD Resp: COMMON NORMALS: No retractions, No use of accessory muscles and clear to auscultation bilaterally EFFORT & INSPECTION: Yes tachypneic AUSCULTATION: clear to auscultation bilaterally Cardio: COMMON NORMALS: no JVD, regular rate, regular rhythm, No clicks present (Cardio), No murmurs present (Cardio) and No rub (Cardio) RATE: regular rate RHYTHM: regular rhythm Extremity: NARRATIVE EXTREMITY EXAM: Weeping wounds with edema to bilateral lower extremities Psych: COMMON NORMALS: mental status grossly normal, Normal thought process present and speech normal ATTITUDE: Yes calm ACTIVITY/MOTOR BEHAVIOR: Yes appropriate eye contact SPEECH: Yes normal speech MOOD & AFFECT: Yes anxious and Yes tearful THOUGHT PROCESS: Normal thought process present THOUGHT CONTENT: Yes Normal thought content present Course Vital Signs: Vital signs: Vital Signs Temperature 98.3 F 04/30/24 18:49 Pulse Rate 68 04/30/24 19:25 Respiratory Rate 20 H 04/30/24 18:49 Blood Pressure 138/64 04/30/24 19:25 Pulse Oximetry 99 04/30/24 19:25 Oxygen Delivery Me thod Nasal Cannula 04/30/24 19:25 Oxygen Flow Rate 4 04/30/24 19:25 MDM - Anxiety Medical Decision Making Patient seen here last night for shortness of breath, unremarkable workup was discharged home. Presented back today by ambulance for anxiety, causing her to hyperventilate stating she was having a panic attack. Reportedly not taking anything for anxiety. Was given 2 of Ativan and greatly improved, stating she was ready go home. Of note she does have primary care appointment tomorrow and states that she is going to discuss her anxiety with them. Sent home with 1 more dose of Ativan and encouraged to return if she develops any worsening of symptoms. Patient awaiting transfer back home, agreeing with discharge. No radiology studies performed this visit Discharge Plan Discharge Patient Disposition: Home Clinical Impression: Acute anxiety, Hyperventilation Condition: Stable Prescriptions: No Action insulin aspart U-100 [Novolog FlexPen U-100 Insulin] 100 unit/mL (3 mL) insulin pen 14 unit SUBCUT TID Qty: 15 3RF Rx Instructions: May substitute for formulary aspirin [Adult Aspirin Regimen] 81 mg tablet,delayed release (DR/EC) 81 mg PO DAILY Hold Instructions: bleeding Eliquis 5 mg tablet 5 mg PO BID 30 Days Qty: 60 5RF Hold Instructions: Resume on 11/21/23. atorvastatin 40 mg tablet 40 mg PO DAILY Qty: 90 2RF metoprolol tartrate 100 mg tablet 150 mg PO Q12H 90 Days Qty: 270 1RF sucralfate [Carafate] 1 gram tablet 1 g PO BID Qty: 60 2RF nitroglycerin 0.4 mg tablet, sublingual 0.4 mg SUBLINGUAL Q5M PRN (Reason: Chest Pain) Qty: 25 2RF risperidone 0.25 mg tablet 0.25 mg PO .qhs Qty: 30 3RF Hold Instructions: see pcp pregabalin 75 mg capsule 75 mg PO BID 30 Days Qty: 60 3RF furosemide 40 mg tablet 80 mg PO BID Qty: 120 5RF Rx Instructions: 2 in AM, 2 @ noon albuterol sulfate 90 mcg/actuation HFA aerosol inhaler 2 puff INHALATION Q6H PRN (Reason: shortness of breath or wheezing) Qty: 8.5 5RF albuterol sulfate 2.5 mg /3 mL (0.083 %) solution for nebulization 2.5 mg inhalation Q6H Qty: 150 1RF famotidine 20 mg tablet 20 mg PO BID 90 Days Qty: 180 1RF potassium chloride 20 mEq tablet,ER particles/crystals 20 meq PO BID PRN (Reason: with lasix only) 90 Days Qty: 180 1RF (DME) nebulizers [facility] [place] See Rx Instructions .MEDSUPPLY Qty: 1 0RF Rx Instructions: As directed budesonide 1 mg/2 mL suspension for nebulization 0.5 mg inhalation BID Qty: 60 1RF Jardiance 10 mg tablet 10 mg PO DAILY 30 Days Qty: 30 5RF (DME) Dexcom G7 Food Science Professor Misc See Rx Instructions .Route Qty: 1 0RF Rx Instructions: As directed (DME) Dexcom G7 Sensor Device See Rx Instructions .ROUTE .COMPLEX Qty: 1 3RF Dose Instruction: USE TO MONITOR BLOOD SUGAR DIRECTED BY DOCTOR CHANGE SENSOR EVERY 10 DAYS Rx Instructions: USE TO MONITOR BLOOD SUGAR DIRECTED BY DOCTOR CHANGE SENSOR EVERY 10 DAYS (DME) [facility] For Women [facility] See Rx Instructions .Route Qty: 360 11RF Rx Instructions: As directed, 12 daily T4528 (DME) pen needle, diabetic [BD Ultra-Fine Short Pen Needle] 31 gauge x 5/16 needle See Rx Instructions .ROUTE .COMPLEX Qty: 100 2RF Dose Instruction: TO USE WITH INSULIN 4 TIMES DAILY Rx Instructions: TO USE WITH INSULIN 4 TIMES DAILY buspirone 15 mg tablet 15 mg PO TID PRN (Reason: anxiety) Qty: 90 3RF cholecalciferol (vitamin D3) 1,250 mcg (50,000 unit) capsule See Rx Instructions .ROUTE .COMPLEX Qty: 4 0RF Dose Instruction: TAKE ONE CAPSULE BY MOUTH WEEKLY ON MONDAYS NEED VITAMIN D LEVEL BEFORE NEXT DR VISIT Rx Instructions: TAKE ONE CAPSULE BY MOUTH WEEKLY ON MONDAYS NEED VITAMIN D LEVEL BEFORE NEXT DR VISIT pantoprazole [Protonix] 40 mg tablet,delayed release (DR/EC) 40 mg PO BID 56 Days Qty: 112 3RF pramipexole 0.5 mg tablet 0.5 mg PO BEDTIME Rx Instructions: TAKE ONE TABLET BY MOUTH AT BEDTIME FOR 90 DAYS ferrous gluconate 324 mg (37.5 mg iron) tablet 324 mg PO BID Qty: 60 3RF insulin glargine [Lantus Solostar U-100 Insulin] 100 unit/mL (3 mL) insulin pen 68 unit SUBCUT DAILY Rx Instructions: 68 UNIT (0.68 ML) SUBCUTANEOUSLY DAILY nystatin 100,000 unit/gram cream 1 applic TOPICAL TID mupirocin 2 % ointment 1 applic topical DAILY Qty: 50 0RF Discharge Orders: Discharge ED (Routine); Ordered 04/30/24 Ordered By: Jamey Rojas Referrals: Kristine Rodriguez MD [Primary Care Provider] - Patient Instructions: Anxiety (ED) Activity Restrictions/Additional Instructions: Please follow-up with your primary care provider tomorrow in regards to your anxiety. Return with any new or worsening. Continue home medications and home O2. Coding Level of Care Code ED Black Topper for Urvashi Shaw
[2024-04-30] MEDS: LORazepam 2 mg Tablet PO (19:24)
[2024-04-30 19:25] VITALS: BP 138/64; PULSE 68; O2SAT 99
[2024-04-30 19:30] VITALS: BP 148/78; PULSE 68; O2SAT 96
[2024-04-30 20:00] VITALS: BP 141/58; PULSE 69; O2SAT 98
[2024-04-30] MEDS: LORazepam 1 mg Tablet PO (20:25)
[2024-04-30 20:30] VITALS: BP 140/71; PULSE 94; O2SAT 99
--- NOTE | 2024-04-30 21:41 | PC.NURSE ---
Pt was transported home by caregiver who states she does not need oxygen while in the car. Pt care was assumed by caregiver to transport back home.
[2024-04-30 21:42] VITALS: BP 120/94; PULSE 72; O2SAT 98
== END 2024-04-30 20:30 | disposition home or self-care (01) ==
PROVIDERS: Emergency Provider Physician Assistant; PCP Family Medicine
DX: F41.8 Other specified anxiety disorders (principal); R06.4 Hyperventilation; Z79.4 Long term (current) use of insulin; I25.10 Atherosclerotic heart disease of native coronary artery without angina pectoris; J44.9 Chronic obstructive pulmonary disease, unspecified; E78.5 Hyperlipidemia, unspecified; E11.9 Type 2 diabetes mellitus without complications; Z99.81 Dependence on supplemental oxygen
CPT/HCPCS: 99283

== ENCOUNTER 2024-05-20 17:48 | Emergency (ER) | payer MEDICARE, MEDICAID, SELFPAY ==
[2024-03-15 13:57] VITALS: BP 121/48; BMI 48.4
[2024-05-20 17:52] VITALS: BP 128/56; PULSE 65; RESP 18; TEMP 36.7; O2SAT 97
--- NOTE | 2024-05-20 17:52 | ECG_ITS ---
[facility] Test Date: 2024-05-20 Pat Name: Lin Henao Department: Room: Gender: Female Senior Budget Analyst: : 1955 Requested By: Joseph Ames Order Number: [id number] Tylor MD: BIJAL PARK Measurements Intervals [place] Rate: 66 P: 248 KS: 109 QRS: 15 QRSD: 95 T: 5 QT: 427 QTc: 449 Interpretive Statements JUNCTIONAL RHYTHM POSSIBLE ANTERIOR MYOCARDIAL INFARCTION , OF INDETERMINATE AGE [30 ms Q WAVE IN V3/V4, OR R < 0.2 mV IN V4] Compared to ECG 04/23/2024 18:07:45 Junctional rhythm now present Atrial fibrillation no longer present Myocardial infarct finding still present Electronically Signed On 05-21-2024 23:13:12 BUSINESS LAW PROFESSOR by BIJAL PARK [email or web address]
--- NOTE | 2024-05-20 18:07 | ED_ITS ---
HPI - Chest Pain 2 General: Chief Complaint: Chest Pain Stated Complaint: chest pain Time Seen by Provider: 05/20/24 17:53 Source: patient and EMS Mode of arrival: EMS Limitations: no limitations History of Present Illness: Chest pain center of chest and epigastric, sharp started a few hours ago. No previous chest pain the past few days. Has a history of CHF, no history of CAD per patient. No known shortness of breath. Is on 3 L of home O2 at baseline. Related Data Home Medications Medication Instructions Recorded Confirmed aspirin 81 mg tablet,delayed 81 mg PO DAILY 11/18/23 05/15/24 release (Adult Aspirin Regimen) pramipexole 0.5 mg tablet 0.5 mg PO BEDTIME 03/07/24 05/15/24 insulin glargine 100 unit/mL (3 68 unit SUBCUT DAILY 04/12/24 05/15/24 mL) subcutaneous pen (Lantus Solostar U-100 Insulin) nystatin 100,000 unit/gram topical 1 applic topical TID 04/12/24 05/15/24 cream Previous Rx's Medication Instructions Recorded nitroglycerin 0.4 mg sublingual 0.4 mg sublingual Q5M PRN Chest 04/15/22 tablet Pain #25 tabs blood-glucose meter,continuous #1 ea 02/08/23 (Dexcom G7 Medical Surgery Nurse) pantoprazole 40 mg tablet,delayed 40 mg PO BID 8 weeks #112 tabs 10/31/23 release (Protonix) apixaban 5 mg tablet (Eliquis) 5 mg PO BID 30 days #60 tabs 12/06/23 atorvastatin 40 mg tablet 40 mg PO DAILY #90 tabs 12/06/23 metoprolol tartrate 100 mg tablet 150 mg (1.5 x 100 mg) PO Q12H 90 12/06/23 days #270 tabs insulin aspart U-100 100 unit/mL 14 unit (0.14 mL) SUBCUT TID #15 mL 12/28/23 (3 mL) subcutaneous pen (Novolog FlexPen U-100 Insulin aspart) sucralfate 1 gram tablet (Carafate) 1 g PO BID #60 tabs 02/06/24 blood-glucose sensor (Dexcom G7 #1 ea 02/27/24 Sensor device) budesonide 1 mg/2 mL suspension 0.5 mg inhalation BID #60 mL 03/14/24 for nebulization nebulizers #1 ea 03/14/24 diaper,brief,adult,disposable #360 ea 03/25/24 (Depend Underwear For Women XL) albuterol sulfate 2.5 mg/3 mL 2.5 mg (3 mL) inhalation Q6H #150 03/27/24 (0.083 %) solution for nebulization vials albuterol sulfate 90 mcg/actuation 2 puff inhalation Q6H PRN 03/27/24 aerosol inhaler shortness of breath or wheezing #8.5 grams famotidine 20 mg tablet 20 mg PO BID 90 days #180 tabs 03/27/24 furosemide 40 mg tablet 80 mg (2 x 40 mg) PO BID weight 03/27/24 gain or shortness breath #120 tabs potassium chloride 20 mEq 20 meq PO BID PRN with lasix only 03/27/24 tablet,extended release(part/cryst) 90 days #180 tabs pregabalin 75 mg capsule 75 mg PO BID 30 days #60 caps 03/27/24 ferrous gluconate 324 mg (37.5 mg 324 mg PO BID #60 tabs 03/31/24 iron) tablet pen needle, diabetic 31 gauge x #100 ea 04/03/24 5/16 (BD Ultra-Fine Short Pen Needle) empagliflozin 10 mg tablet 10 mg PO DAILY 30 days #30 tabs 04/05/24 (Jardiance) mupirocin 2 % topical ointment 1 applic topical DAILY #50 grams 04/12/24 buspirone 15 mg tablet 15 mg PO TID PRN anxiety #90 tabs 05/15/24 risperidone 0.25 mg tablet 0.25 mg PO .qhs #30 tabs 05/15/24 cholecalciferol (vitamin D3) 1,250 See Rx Instructions .Route 05/17/24 mcg (50,000 unit) capsule .COMPLEX #4 caps pantoprazole 40 mg tablet,delayed 40 mg PO DAILY 30 days #30 tabs 05/20/24 release (Protonix) sucralfate 1 gram tablet (Carafate) 1 g PO TID 30 days #90 tabs 05/20/24 Allergies Allergy/AdvReac Type Severity Reaction Status Date / Time propoxyphene [From Darvon] Allergy Unknown Unknown Verified 05/15/24 10:59 fluoxetine [From Prozac] AdvReac Severe ADR-Halluci Verified 05/15/24 10:59 nating Review of Systems 2 General: Reports: 10 or more systems reviewed and unremarkable except in HPI and below PFSH ED 2 PFSH: Medical History Smoking Chronic anticoagulation initiated apixaban 08/2020 for paroxysmal atrial fibrillation Hypertension, benign Paroxysmal atrial fibrillation (~08/2020) Congestive heart failure Encephalopathy acute Polypharmacy Atrial flutter Tachy-andra syndrome Acute anemia Rotator cuff dysfunction Smoking addiction Insomnia Wheelchair bound Oxygen dependent 2 L at home Small bowel obstruction History of colonic diverticulitis Paroxysmal SVT (supraventricular tachycardia) Nicotine dependence, cigarettes, with other nicotine-induced disorders DM type 2 (diabetes mellitus, type 2) Chest pain Atypical chest pain Paroxysmal A-fib NONA (obstructive sleep apnea) Uses CPAP Fibromyalgia Peripheral Vascular Disease Mixed stress and urge urinary incontinence Chronic pain syndrome Due to her weight and other comorbidities I do not think that there is much that pain management would be able to do. They can do localized injections or treatments on specific joints but she would never be a surgical candidate. Bipolar depression Overactive bladder RLS (restless legs syndrome) Constipation, chronic COPD (chronic obstructive pulmonary disease) GERD (gastroesophageal reflux disease) CAD (coronary artery disease) Diabetes mellitus type 2 in obese Hyperlipemia Chronic headache Panic disorder [episodic paroxysmal anxiety] Generalized anxiety disorder Major depressive disorder, recurrent, moderate Surgical History Hx of tubal ligation Hx of colonoscopy 10 + years H/O: hysterectomy Hx of cholecystectomy S/P appendectomy H/O thyroidectomy Family History Mother , at age 75 Hypertension Father , at age 87 Hypertension Denies family history of Lung disease Stroke Social History Smoking and tobacco/nicotine status: never used tobacco/nicotine Alcohol intake: never Substance/Drug Use: never Adopted: No Caregiver/support person: No Lives independently: Yes Household members: none Housing: Apartment Marital status: / Number of children: 8 Number of grandchildren: 14 Highest education level completed: Some College, No Degree service: No Current occupational status: disabled Pets and animals: Yes Pets & animals: dog(s) Leisure activites: art, music, reading and other Sexually active: No Do you think of yourself as: Straight/Heterosexual Current gender identity: Female Lilliam/Druze: Yazidi Special lilliam needs: No Agree to transfusion: Yes Female Reproductive History: Para: 8 Spontaneous abortions: No Physical Exam 2 Const: COMMON NORMALS: no acute distress, patient oriented x3, healthy appearing, alert and well nourished GENERAL APPEARANCE: well kempt and well developed NUTRITIONAL APPEARANCE: obese (Morbidly obese) HENMT: COMMON NORMALS: normocephalic, atraumatic, external ears normal and moist oral mucous membranes HEAD & SCALP: normocephalic and atraumatic E XTERNAL EAR: Yes external ears normal Eye: COMMON NORMALS: Equal, round and reactive pupils present, EOMs intact bilaterally and conjunctivae normal CONJUNCTIVA: Yes conjunctivae normal P UPIL: Yes Equal, round and reactive pupils present Neck/C-Spine: COMMON NORMALS: full ROM, no lymphadenopathy, supple and no JVD Chest: CHEST: Yes Symmetrical chest wall rise, Yes tenderness (Minimally tender lower sternum not same as complaint) and No Surgical scars present (Chest) Resp: COMMON NORMALS: normal respiratory effort, No retractions, No use of accessory muscles and clear to auscultation bilaterally AUSCULTATION: clear to auscultation bilaterally Cardio: COMMON NORMALS: no JVD, regular rate, regular rhythm, S1 normal heart sound present, S2 normal heart sound present, No gallops present (Cardio), No clicks present (Cardio), No murmurs present (Cardio) and No rub (Cardio) R ATE: regular rate RHYTHM: regular rhythm HEART SOUNDS: S1 normal heart sound present, S2 normal heart sound present and no murmurs PERIPHERAL PULSES: other (Radial pulses 2+ and symmetric) GI: COMMON NORMALS: Soft to palpation and no masses INSPECTION: No abdominal distension PALPATION: Yes Soft to palpation, Yes Tenderness to palpation present (GI) Details: LLQ, LUQ and other (Epigastric), Yes Guarding due to palpation present (GI) other (Epigastric) and No Rebound tenderness present : COMMON NORMALS: Yes no CVA tenderness BLADDER/KIDNEY EXAM: Yes no CVA tenderness Back/Pelvis: COMMON NORMALS: no CVA tenderness Extremity: COMMON NORMALS: normal to inspection, full ROM, capillary refill normal and no clubbing, cyanosis or edema OTHER: Chronic venous stasis changes bilat with 2 bandage sores 1 on each leg. Neuro: COMMON NORMALS: patient oriented x3 SENSORIUM/ORIENTATION: Yes alert Psych: APPEARANCE: Yes well kempt Skin: COMMON NORMALS: no rashes or lesions noted, no wounds, turgor normal and no jaundice GENERAL SKIN EXAM: no rashes or lesions noted and turgor normal Course 2 Reevaluation(s): Reevaluation #1: Patient reevaluated, reports that the GI cocktail completely resolved her pain, has no more pain or tenderness. Time: 20:11 Vital Signs: Vital signs: Vital Signs Temperature 98.1 F 05/20/24 17:52 Pulse Rate 64 05/20/24 19:08 Respiratory Rate 15 05/20/24 19:08 Blood Pressure 130/49 05/20/24 19:08 Pulse Oximetry 100 05/20/24 19:08 Oxygen Delivery Me thod Nasal Cannula 05/20/24 18:45 Oxygen Flow Rate 3 05/20/24 18:45 MDM - Chest Pain Medical Decision Making Chest pain that was more epigastric on description and on exam. Had epigastric tenderness with guarding, will be the left upper lower quadrant discomfort on palpation as well. Initial troponin is the same as it was in March. No known CAD history. Patient reports GI cocktail completely resolved her pain and she is requesting discharge. Differential Diagnosis Likely acute myocardial infarction; Unlikely acute massive pulmonary embolism, acute respiratory failure, cardiac arrest or sudden cardiac Medical Records I reviewed the patient's medical records. Lab Data I reviewed the patient's lab results. 05/20/24 18:28 05/20/24 18:28 Radiology Impressions Chest X-Ray 05/20/24 18:11 IMPRESSION: 1. Small left-sided pleural effusion. Laboratory Results WBC 7.72 10^3/uL (3.29-11.43) 05/20/24 18: RBC 3.67 10^6/uL (3.85-5.65) L 05/20/24 18:28 Hgb 9.00 g/dL (11.27-16.99) L 05/20/24 18: Hct 32.1 % (36-47) L 05/20/24: MCV 87.5 fl (85-98) 05/20/24 18: MCH 24.5 pg (27-33) L 05/20/24 MCHC 28.0 g/dL (30-55) L 05/20/24 18: RDW 24.3 % (12.1-15.1) H 05/20/24: Plt Count 181 10^3/cmm (157-399) 05/20/24 MPV 12.2 fL (7.4-10.4) H 05/20/24 18: Neut % (Auto) 68.1 % 05/20/24 18: Lymph % (Auto) 19.3 % 05/20/24: [place] % (Auto) 10.0 % 05/20/24: Eos % (Auto) 1.9 % 05/20/24 Baso % (Auto) 0.4 % 05/20/24 Neut # (Auto) 5.26 10^3/uL (1.8-7.7) 05/20/24: Lymph # (Auto) 1.5 10^3/uL (0.8-4.8) 05/20/24: [place] # (Auto) 0.8 10^3/uL (0.2-0.9) 05/20/24 Eos # (Auto) 0.2 10^3/uL (0.0-0.8) 05/20/24 Baso # (Auto) 0.0 10^3/uL (0.0-0.1) 05/20/24 Nucleated RBC % (auto) 0 % 05/20/24 Nucleated RBCs # 0.0 /100WBC 05/20/24 PT 14.10 SECONDS (12.1-14.9) 05/20/24 INR 1.02 (0.8-1.2) 05/20/24 APTT 31.3 SECONDS (23.9-36.7) 05/20/24 18: Sodium 139 mmol/L (136-145) 05/20/24 18: Potassium 3.5 mmol/L (3.5-5.1) 05/20/24 18:28 Chloride 99 mmol/L (98-107) 05/20/24 18:28 Carbon Dioxide 30 mmol/L (22-29) H 05/20/24 18:28 Anion Gap 13.5 (5-19) 05/20/24 18:28 BUN 11 mg/dL (8-23) 05/20/24 18:28 Creatinine 0.9 mg/dL (0.5-0.9) 05/20/24 18:28 GFR Calculation 62.5 mL/min (90-130) L 05/20/24 18:28 Glucose 186 mg/dL (65-115) H 05/20/24 18:28 Calculated Osmolality 292 mOsm/kg (285-295) 05/20/24 18:28 Calcium 8.9 mg/dL (8.5-10.5) 05/20/24 18:28 Total Bilirubin 0.5 mg/dL (0.15-1.2) 05/20/24 18:28 AST 29 U/L (0-32) 05/20/24 18:28 ALT 10 U/L (0-33) 05/20/24 18:28 Alkaline Phosphatase 252 U/L (35-105) H 05/20/24 18:28 Troponin T Baseline 38 ng/L (0-10) H 05/20/24 18:28 NT-Pro-B Natriuret Pep 1667 pg/mL (0-125) H 05/20/24 18:28 Total Protein 6.9 g/dL (6.6-8.7) 05/20/24 18:28 Albumin 3.5 g/dL (3.5-5.2) 05/20/24 18:28 Globulin 3.4 g/dL (1.3-4.6) 05/20/24 18:28 Lipase 43 U/L (13-60) 05/20/24 18:28 All radiology interpretation(s) finalized by discharge ED provider radiology interpretation(s): X-ray personally reviewed, shows small left-sided pleural effusion consistent with her CHF. Not consistent with any areas of tenderness or pain. Discharge Plan Discharge Patient Disposition: Home Clinical Impression: Abdominal pain, epigastric Gastritis Qualifiers: Gastritis type: unspecified gastritis Chronicity: acute Gastritis bleeding: w ithout bleeding Qualified Code(s): K29.00 - Acute gastritis without bleeding Condition: Stable Prescriptions: New pantoprazole [Protonix] 40 mg tablet,delayed release (DR/EC) 40 mg PO DAILY 30 Days Qty: 30 0RF sucralfate [Carafate] 1 gram tablet 1 g PO TID 30 Days Qty: 90 0RF Rx Instructions: take 1 hour before or 30 minutes after any other medications No Action insulin aspart U-100 [Novolog FlexPen U-100 Insulin] 100 unit/mL (3 mL) insulin pen 14 unit SUBCUT TID Qty: 15 3RF Rx Instructions: May substitute for formulary aspirin [Adult Aspirin Regimen] 81 mg tablet,delayed release (DR/EC) 81 mg PO DAILY Hold Instructions: bleeding Eliquis 5 mg tablet 5 mg PO BID 30 Days Qty: 60 5RF Hold Instructions: Resume on 11/21/23. atorvastatin 40 mg tablet 40 mg PO DAILY Qty: 90 2RF metoprolol tartrate 100 mg tablet 150 mg PO Q12H 90 Days Qty: 270 1RF sucralfate [Carafate] 1 gram tablet 1 g PO BID Qty: 60 2RF nitroglycerin 0.4 mg tablet, sublingual 0.4 mg SUBLINGUAL Q5M PRN (Reason: Chest Pain) Qty: 25 2RF pregabalin 75 mg capsule 75 mg PO BID 30 Days Qty: 60 3RF furosemide 40 mg tablet 80 mg PO BID Qty: 120 5RF Rx Instructions: 2 in AM, 2 @ noon albuterol sulfate 90 mcg/actuation HFA aerosol inhaler 2 puff INHALATION Q6H PRN (Reason: shortness of breath or wheezing) Qty: 8.5 5RF albuterol sulfate 2.5 mg /3 mL (0.083 %) solution for nebulization 2.5 mg inhalation Q6H Qty: 150 1RF famotidine 20 mg tablet 20 mg PO BID 90 Days Qty: 180 1RF potassium chloride 20 mEq tablet,ER particles/crystals 20 meq PO BID PRN (Reason: with lasix only) 90 Days Qty: 180 1RF (DME) nebulizers Misc See Rx Instructions .MEDSUPPLY Qty: 1 0RF Rx Instructions: As directed budesonide 1 mg/2 mL suspension for nebulization 0.5 mg inhalation BID Qty: 60 1RF Jardiance 10 mg tablet 10 mg PO DAILY 30 Days Qty: 30 5RF risperidone 0.25 mg tablet 0.25 mg PO .qhs Qty: 30 1RF Hold Instructions: see pcp buspirone 15 mg tablet 15 mg PO TID PRN (Reason: anxiety) Qty: 90 1RF (DME) Dexcom G7 Medical Surgery Nurse Misc See Rx Instructions .Route Qty: 1 0RF Rx Instructions: As directed (DME) Dexcom G7 Sensor Device See Rx Instructions .ROUTE .COMPLEX Qty: 1 3RF Dose Instruction: USE TO MONITOR BLOOD SUGAR DIRECTED BY DOCTOR CHANGE SENSOR EVERY 10 DAYS Rx Instructions: USE TO MONITOR BLOOD SUGAR DIRECTED BY DOCTOR CHANGE SENSOR EVERY 10 DAYS (DME) Depend Underwear For Women XL Misc See Rx Instructions .Route Qty: 360 11RF Rx Instructions: As directed, 12 daily T4528 (DME) pen needle, diabetic [BD Ultra-Fine Short Pen Needle] 31 gauge x 5/16 needle See Rx Instructions .ROUTE .COMPLEX Qty: 100 2RF Dose Instruction: TO USE WITH INSULIN 4 TIMES DAILY Rx Instructions: TO USE WITH INSULIN 4 TIMES DAILY cholecalciferol (vitamin D3) 1,250 mcg (50,000 unit) capsule See Rx Instructions .ROUTE .COMPLEX Qty: 4 0RF Dose Instruction: TAKE ONE CAPSULE BY MOUTH WEEKLY ON MONDAYS NEED VITAMIN D LEVEL BEFORE NEXT DR VISIT Rx Instructions: TAKE ONE CAPSULE BY MOUTH WEEKLY ON MONDAYS NEED VITAMIN D LEVEL BEFORE NEXT DR VISIT pantoprazole [Protonix] 40 mg tablet,delayed release (DR/EC) 40 mg PO BID 56 Days Qty: 112 3RF pramipexole 0.5 mg tablet 0.5 mg PO BEDTIME Rx Instructions: TAKE ONE TABLET BY MOUTH AT BEDTIME FOR 90 DAYS ferrous gluconate 324 mg (37.5 mg iron) tablet 324 mg PO BID Qty: 60 3RF insulin glargine [Lantus Solostar U-100 Insulin] 100 unit/mL (3 mL) insulin pen 68 unit SUBCUT DAILY Rx Instructions: 68 UNIT (0.68 ML) SUBCUTANEOUSLY DAILY nystatin 100,000 unit/gram cream 1 applic TOPICAL TID mupirocin 2 % ointment 1 applic topical DAILY Qty: 50 0RF Discharge Orders: Discharge ED (Routine); Ordered 05/20/24 Ordered By: Joseph Ames Referrals: Kristine Rodriguez MD [Primary Care Provider] - Discharge Diet: Advance as tolerated and GI Soft Discharge Activity: Resume usual activity Patient Instructions: Abdominal Pain (ED), Gastritis (ED) Coding Level of Care Code ED Refinery Superintendent for Urvashi Shaw
[2024-05-20 18:11] VITALS: PULSE 65
--- NOTE | 2024-05-20 18:11 | XRR_ITS ---
PROCEDURE INFORMATION: Exam: XR Chest Exam date and time: 05/20/2024 6:26 PM Age: 69 years old Clinical indication: Pain; Chest pressure; Additional info: Chest pain TECHNIQUE: Imaging protocol: Radiologic exam of the chest. Views: 1 view. COMPARISON: CR (CHEST, ) 04/29/2024 9:31 PM FINDINGS: Lungs: No focal consolidation. Pleural spaces: No evidence of pneumothorax. Small left-sided pleural effusion. Heart/Mediastinum: Cardiomediastinal silhouette is within normal limits. Bones/joints: No evidence of acute osseous abnormality. XR/XR chest 1V portable [id number] IMPRESSION: 1. Small left-sided pleural effusion.
[2024-05-20 18:34] LABS: Basophils % 0.4 %; Eosinophils # 0.2 10^3/uL (0.0-0.8); Eosinophils % 1.9 %; Hematocrit 32.1 % (36-47); Lymphocytes # 1.5 10^3/uL (0.8-4.8); Lymphocytes % 19.3 %; Mean Corpuscular Hemoglobin 24.5 pg (27-33); Mean Corpuscular Volume 87.5 fl (85-98); Mean Platelet Volume 12.2 fL (7.4-10.4); Monocytes # 0.8 10^3/uL (0.2-0.9); Neutrophils # 5.26 10^3/uL (1.8-7.7); Neutrophils % 68.1 %; Nucleated Red Blood Cells % 0 %; Platelet Count 181 10^3/cmm (157-399); Red Blood Count 3.67 10^6/uL (3.85-5.65); Red Cell Distribution Width 24.3 % (12.1-15.1); White Blood Count 7.72 10^3/uL (3.29-11.43)
[2024-05-20 18:45] VITALS: BP 128/56; PULSE 59; RESP 18; O2SAT 99
[2024-05-20] MEDS: lidocaine 2% viscous 15 ML, aluminum-mag hydrox-simethicon 30 ML, sucralfate oral liq 1 GM PO (18:45)
[2024-05-20] MEDS: ondansetron 2 mg/ML SDV 2 mL 4 MG IVP (18:45)
[2024-05-20 18:47] LABS: INR 1.02 (0.8-1.2)
[2024-05-20 18:48] LABS: Partial Thromboplastin Time 31.3 SECONDS (23.9-36.7)
[2024-05-20 19:00] LABS: Alanine Aminotransferase 10 U/L (0-33); Albumin Level 3.5 g/dL (3.5-5.2); Alkaline Phosphatase 252 U/L (35-105); Anion Gap 13.5 (5-19); Aspartate Amino Transferase 29 U/L (0-32); Blood Urea Nitrogen 11 mg/dL (8-23); Calcium 8.9 mg/dL (8.5-10.5); Carbon Dioxide 30 mmol/L (22-29); Chloride 99 mmol/L (98-107); Globulin 3.4 g/dL (1.3-4.6); Glomerular Filtration Rate 62.5 mL/min (90-130); Glucose 186 mg/dL (65-115); Lipase 43 U/L (13-60); NT Pro B Type Natriuretic Pept 1667 pg/mL (0-125); Osmolality Calculated 292 mOsm/kg (285-295); Potassium 3.5 mmol/L (3.5-5.1); Sodium 139 mmol/L (136-145); Total Bilirubin 0.5 mg/dL (0.15-1.2); Total Protein 6.9 g/dL (6.6-8.7)
[2024-05-20 19:06] LABS: Troponin(5th) Baseline 38 ng/L (0-10)
[2024-05-20 19:08] VITALS: BP 130/49; PULSE 64; RESP 15; O2SAT 100
[2024-05-20 20:00] VITALS: BP 133/58; PULSE 62; O2SAT 98
[2024-05-20 20:39] LABS: Bilirubin Urine Negative (Negative); Blood Urine Negative (Negative); Glucose Urine UA 3+ (Normal); Ketones Urine Negative (Negative); Leukocyte Esterase Urine Negative (Negative); Nitrate Urine Negative (Negative); Protein Urine Negative (Negative); Urine Appearance Clear (CLEAR); Urine Color Yellow (Yellow)
[2024-05-20 20:44] LABS: Add Urine Microscopic? YES; Bacteria Urine None Seen /hpf; Hyaline Casts Urine 0-4 /lpf; Squamous Epithelial Cell Urine 0-5 /hpf (0-5); WBC Urine 0-5 /hpf (0-5)
[2024-05-20] MEDS: pantoprazole 40 mg SDV 80 MG IVP (20:58)
[2024-05-20 21:01] VITALS: BP 125/67; PULSE 62; RESP 18; O2SAT 99
== END 2024-05-20 22:05 | disposition home or self-care (01) ==
PROVIDERS: Emergency Provider Emergency Medicine; PCP Family Medicine
DX: R10.13 Epigastric pain (principal); K29.00 Acute gastritis without bleeding; Z79.4 Long term (current) use of insulin; E78.5 Hyperlipidemia, unspecified; I25.10 Atherosclerotic heart disease of native coronary artery without angina pectoris; J44.9 Chronic obstructive pulmonary disease, unspecified; E11.9 Type 2 diabetes mellitus without complications; Z99.81 Dependence on supplemental oxygen
CPT/HCPCS: 36415; 71045; 80053; 81001; 83690; 83880; 84484; 85025; 85610; 85730; 93005; 96374; 96375; 99285; J2405; J2470

== ENCOUNTER 2024-05-25 17:51 | Emergency (ER) | payer MEDICARE, MEDICAID, SELFPAY ==
[2024-03-15 13:57] VITALS: BP 121/48; BMI 48.4
--- NOTE | 2024-05-25 17:58 | ECG_ITS ---
[facility] Test Date: 2024-05-25 Pat Name: Lin Henao Department: Room: Gender: Female Well Blower: : 1955 Requested By: Caio Kirby Order Number: [id number] Tylor MD: Kevon Ge M.D. Measurements Intervals [place] Rate: 65 P: 0 RI: 0 QRS: 81 QRSD: 94 T: -29 QT: 442 QTc: 463 Interpretive Statements ATRIAL FIBRILLATION WITH ABERRANT CONDUCTION OR VENTRICULAR PREMATURE COMPLEXES LOW QRS VOLTAGE IN PRECORDIAL LEADS [QRS DEFLECTION < 1.0 mV IN CHEST LEADS] POSSIBLE ANTERIOR MYOCARDIAL INFARCTION , PROBABLY OLD [30 ms Q WAVE IN V3/V4, OR R < 0.2 mV IN V4] Compared to ECG 05/20/2024 17:52:43 Ventricular premature complex(es) now present Aberrant conduction of supraventricular beat(s) now present Low QRS voltage now present Junctional rhythm no longer present Myocardial infarct finding still present Electronically Signed On 05-26-2024 23:06:57 [employer] ENGINE[employer] by Kevon Ge M.D. [email or web address]
[2024-05-25 18:02] VITALS: BP 118/66; PULSE 65; RESP 18; TEMP 36.9; O2SAT 95
--- NOTE | 2024-05-25 18:50 | XRR_ITS ---
PROCEDURE INFORMATION: Exam: XR Chest Exam date and time: 05/25/2024 6:55 PM Age: 69 years old Clinical indication: Chest wall pain; Prior surgery; Surgery date: 6+ months; Surgery type: Pacemaker; Additional info: Chest pains and difficulty breathing TECHNIQUE: Imaging protocol: Radiologic exam of the chest. Views: 1 view. COMPARISON: CR (CHEST, ) 05/20/2024 6:26 PM FINDINGS: Limitations: Patient rotation. Lungs: No new pulmonary opacities. Pleural spaces: Small left pleural effusion with adjacent atelectasis/consolidation, stable. No pneumothorax. Heart/Mediastinum: The cardiomediastinal silhouette is stable. Bones/joints: No acute osseous abnormalities are seen. XR/XR chest 1V portable [id number] IMPRESSION: Stable radiographic appearance of the chest.
[2024-05-25 19:31] LABS: Basophils % 0.3 %; Eosinophils # 0.2 10^3/uL (0.0-0.8); Eosinophils % 2.3 %; Hematocrit 30.9 % (36-47); Lymphocytes # 1.4 10^3/uL (0.8-4.8); Lymphocytes % 21.3 %; Mean Corpuscular HGB Conc 29.1 g/dL (30-55); Mean Corpuscular Hemoglobin 24.9 pg (27-33); Mean Corpuscular Volume 85.6 fl (85-98); Monocytes # 0.6 10^3/uL (0.2-0.9); Monocytes % 9.6 %; Neutrophils # 4.34 10^3/uL (1.8-7.7); Neutrophils % 66.2 %; Nucleated Red Blood Cells % 0 %; Platelet Count 171 10^3/cmm (157-399); Red Blood Count 3.61 10^6/uL (3.85-5.65); Red Cell Distribution Width 23.9 % (12.1-15.1); White Blood Count 6.56 10^3/uL (3.29-11.43)
[2024-05-25 19:52] LABS: Troponin(5th) Baseline 35 ng/L (0-10)
[2024-05-25 20:02] LABS: Anion Gap 16.3 (5-19); Blood Urea Nitrogen 14 mg/dL (8-23); Calcium 9.1 mg/dL (8.5-10.5); Carbon Dioxide 26 mmol/L (22-29); Chloride 100 mmol/L (98-107); Creatinine Clr Calc Pharmacy 60.4462; Glomerular Filtration Rate 44.8 mL/min (90-130); Glucose 199 mg/dL (65-115); Osmolality Calculated 292 mOsm/kg (285-295); Potassium 4.3 mmol/L (3.5-5.1); Sodium 138 mmol/L (136-145)
[2024-05-25 20:04] LABS: Slide Review Slide Review Perform
--- NOTE | 2024-05-25 20:25 | W.ED.CHESTPA ---
HPI - Chest Pain General: Chief Complaint: Chest Pain Stated Complaint: chest pain, anxiety Time Seen by Provider: 05/25/24 20:07 History of Present Illness: 69-year-old female with chronic chest discomfort this been going on for quite some time. She comes in the night because she felt she had a little more chest tightness and just want to be checked out. Little bit increased cough. Patient is on baseline home oxygen. She reports her symptoms are little better at this time. Associated symptoms: Reports dyspnea; Deny abdominal pain, fever(s), nausea, palpitations or vomiting Related Data Home Medications Medication Instructions Recorded Confirmed aspirin 81 mg tablet,delayed 81 mg PO DAILY 11/18/23 05/15/24 release (Adult Aspirin Regimen) pramipexole 0.5 mg tablet 0.5 mg PO BEDTIME 03/07/24 05/15/24 insulin glargine 100 unit/mL (3 68 unit SUBCUT DAILY 04/12/24 05/15/24 mL) subcutaneous pen (Lantus Solostar U-100 Insulin) nystatin 100,000 unit/gram topical 1 applic topical TID 04/12/24 05/15/24 cream Previous Rx's Medication Instructions Recorded nitroglycerin 0.4 mg sublingual 0.4 mg sublingual Q5M PRN Chest 04/15/22 tablet Pain #25 tabs blood-glucose meter,continuous #1 ea 02/08/23 (Dexcom G7 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 Painting 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 Operator) pantoprazole 40 mg tablet,delayed 40 mg PO BID 8 weeks #112 tabs 10/31/23 release (Protonix) apixaban 5 mg tablet (Eliquis) 5 mg PO BID 30 days #60 tabs 12/06/23 atorvastatin 40 mg tablet 40 mg PO DAILY #90 tabs 12/06/23 metoprolol tartrate 100 mg tablet 150 mg (1.5 x 100 mg) PO Q12H 90 12/06/23 days #270 tabs insulin aspart U-100 100 unit/mL 14 unit (0.14 mL) SUBCUT TID #15 mL 12/28/23 (3 mL) subcutaneous pen (Novolog FlexPen U-100 Insulin aspart) sucralfate 1 gram tablet (Carafate) 1 g PO BID #60 tabs 02/06/24 blood-glucose sensor (Dexcom G7 #1 ea 02/27/24 Sensor device) budesonide 1 mg/2 mL suspension 0.5 mg inhalation BID #60 mL 03/14/24 for nebulization nebulizers #1 ea 03/14/24 diaper,brief,adult,disposable #360 ea 03/25/24 (Depend Underwear For Women XL) albuterol sulfate 2.5 mg/3 mL 2.5 mg (3 mL) inhalation Q6H #150 03/27/24 (0.083 %) solution for nebulization vials albuterol sulfate 90 mcg/actuation 2 puff inhalation Q6H PRN 03/27/24 aerosol inhaler shortness of breath or wheezing #8.5 grams famotidine 20 mg tablet 20 mg PO BID 90 days #180 tabs 03/27/24 furosemide 40 mg tablet 80 mg (2 x 40 mg) PO BID weight 03/27/24 gain or shortness breath #120 tabs potassium chloride 20 mEq 20 meq PO BID PRN with lasix only 03/27/24 tablet,extended release(part/cryst) 90 days #180 tabs pregabalin 75 mg capsule 75 mg PO BID 30 days #60 caps 03/27/24 ferrous gluconate 324 mg (37.5 mg 324 mg PO BID #60 tabs 03/31/24 iron) tablet pen needle, diabetic 31 gauge x #100 ea 04/03/2409/14 (BD Ultra-Fine Short Pen Needle) empagliflozin 10 mg tablet 10 mg PO DAILY 30 days #30 tabs 04/05/24 (Jardiance) mupirocin 2 % topical ointment 1 applic topical DAILY #50 grams 04/12/24 buspirone 15 mg tablet 15 mg PO TID PRN anxiety #90 tabs 05/15/24 risperidone 0.25 mg tablet 0.25 mg PO .qhs #30 tabs 05/15/24 cholecalciferol (vitamin D3) 1,250 See Rx Instructions .Route 05/17/24 mcg (50,000 unit) capsule .COMPLEX #4 caps pantoprazole 40 mg tablet,delayed 40 mg PO DAILY 30 days #30 tabs 05/20/24 release (Protonix) sucralfate 1 gram tablet (Carafate) 1 g PO TID 30 days #90 tabs 05/20/24 Allergies Allergy/AdvReac Type Severity Reaction Status Date / Time propoxyphene [From Darvon] Allergy Unknown Unknown Verified 05/25/24 18:06 fluoxetine [From Prozac] AdvReac Severe ADR-Halluci Verified 05/25/24 18:06 duke Review of Systems Const: Denies: fever(s) or chills Card: Reports: chest pain; Denies: palpitations Resp: Reports: dyspnea and non-productive cough GI: Denies: abdominal pain, nausea or vomiting PFSH ED PFSH: Medical History Smoking Chronic anticoagulation initiated apixaban 08/2020 for paroxysmal atrial fibrillation Hypertension, benign Paroxysmal atrial fibrillation (~08/2020) Congestive heart failure Encephalopathy acute Polypharmacy Atrial flutter Tachy-andra syndrome Acute anemia Rotator cuff dysfunction Smoking addiction Insomnia Wheelchair bound Oxygen dependent 2 L at home Small bowel obstruction History of colonic diverticulitis Paroxysmal SVT (supraventricular tachycardia) Nicotine dependence, cigarettes, with other nicotine-induced disorders DM type 2 (diabetes mellitus, type 2) Chest pain Atypical chest pain Paroxysmal A-fib NONA (obstructive sleep apnea) Uses CPAP Fibromyalgia Peripheral Vascular Disease Mixed stress and urge urinary incontinence Chronic pain syndrome Due to her weight and other comorbidities I do not think that there is much that pain management would be able to do. They can do localized injections or treatments on specific joints but she would never be a surgical candidate. Bipolar depression Overactive bladder RLS (restless legs syndrome) Constipation, chronic COPD (chronic obstructive pulmonary disease) GERD (gastroesophageal reflux disease) CAD (coronary artery disease) Diabetes mellitus type 2 in obese Hyperlipemia Chronic headache Panic disorder [episodic paroxysmal anxiety] Generalized anxiety disorder Major depressive disorder, recurrent, moderate Surgical History Hx of tubal ligation Hx of colonoscopy 10 + years H/O: hysterectomy Hx of cholecystectomy S/P appendectomy H/O thyroidectomy Family History Mother , at age 75 Hypertension Father , at age 87 Hypertension Denies family history of Lung disease Stroke Social History Smoking and tobacco/nicotine status: never used tobacco/nicotine Alcohol intake: never Substance/Drug Use: never Adopted: No Caregiver/support person: No Lives independently: Yes Household members: none Housing: Apartment Marital status: / Number of children: 8 Number of grandchildren: 14 Highest education level completed: Some College, No Degree service: No Current occupational status: disabled Pets and animals: Yes Pets & animals: dog(s) Leisure activites: art, music, reading and other Sexually active: No Do you think of yourself as: Straight/Heterosexual Current gender identity: Female Lilliam/Islam: Muslim Special lilliam needs: No Agree to transfusion: Yes Female Reproductive History: Para: 8 Spontaneous abortions: No Physical Exam Const: COMMON NORMALS: no acute distress and patient oriented x3 GENERAL APPEARANCE: cooperative and comfortable NUTRITIONAL APPEARANCE: obese Resp: COMMON NORMALS: normal respiratory effort AUSCULTATION: diminished lung sounds (Likely due to body habitus) diffuse Cardio: COMMON NORMALS: regular rate RATE: regular rate RHYTHM: abnormal rhythm GI: COMMON NORMALS: Soft to palpation and non-tender PALPATION: Yes Soft to palpation Neuro: COMMON NORMALS: patient oriented x3 and no focal motor deficits Psych: COMMON NORMALS: mental status grossly normal, Normal thought process present and normal affect THOUGHT PROCESS: Normal thought process present Course Vital Signs: Vital signs: Vital Signs Temperature 98.5 F 05/25/24 18:02 Pulse Rate 62 05/25/24 20:41 Respiratory Rate 18 05/25/24 18:02 Blood Pressure 151/75 05/25/24 20:41 Pulse Oximetry 98 05/25/24 20:41 Oxygen Delivery Me thod Room Air 05/25/24 20:41 Oxygen Flow Rate 2 05/25/24 18:02 MDM - Chest Pain Medical Decision Making Patient's diagnostic studies were ordered reviewed interpreted by me. Patient's labs show no significant acute findings with troponin at her baseline. Patient's EKG is unchanged from previous EKGs with atrial fibs with PVCs. Ventricular rate 65, QTc 454. Patient's symptoms appear noncardiac, resolved. Patient was ready to be discharged home. She was negative for influenza COVID or RSV. Patient should follow-up with her primary care provider for continued outpatient evaluation as her pain is chronic has been going on for quite some time. Lab Data 05/25/24 19:21 05/25/24 19:21 Radiology Impressions Chest X-Ray 05/25/24 18:50 IMPRESSION: Stable radiographic appearance of the chest. Laboratory Results WBC 6.56 10^3/uL (3.29-11.43) 05/25/24 19:21 RBC 3.61 10^6/uL (3.85-5.65) L 05/25/24 19:21 Hgb 9.00 g/dL (11.27-16.99) L 05/25/24 19:21 Hct 30.9 % (36-47) L 05/25/24 19:21 MCV 85.6 fl (85-98) 05/25/24 19:21 MCH 24.9 pg (27-33) L 05/25/24 19:21 MCHC 29.1 g/dL (30-55) L 05/25/24 19:21 RDW 23.9 % (12.1-15.1) H 05/25/24 19:21 Plt Count 171 10^3/cmm (157-399) 05/25/24 19:21 MPV 12.0 fL (7.4-10.4) H 05/25/24 19:21 Neut % (Auto) 66.2 % 05/25/24 19:21 Lymph % (Auto) 21.3 % 05/25/24 19:21 Tyrrell % (Auto) 9.6 % 05/25/24 19:21 Eos % (Auto) 2.3 % 05/25/24 19:21 Baso % (Auto) 0.3 % 05/25/24 19:21 Neut # (Auto) 4.34 10^3/uL (1.8-7.7) 05/25/24 19:21 Lymph # (Auto) 1.4 10^3/uL (0.8-4.8) 05/25/24 19:21 Tyrrell # (Auto) 0.6 10^3/uL (0.2-0.9) 05/25/24 19:21 Eos # (Auto) 0.2 10^3/uL (0.0-0.8) 05/25/24 19:21 Baso # (Auto) 0.0 10^3/uL (0.0-0.1) 05/25/24 19:21 Nucleated RBC % (auto) 0 % 05/25/24 19:21 Nucleated RBCs # 0.0 /100WBC 01/24/25 19:21 Sodium 138 mmol/L (136-145) 05/25/24 19:21 Potassium 4.3 mmol/L (3.5-5.1) 05/25/24 19:21 Chloride 100 mmol/L (98-107) 05/25/24 19:21 Carbon Dioxide 26 mmol/L (22-29) 05/25/24 19:21 Anion Gap 16.3 (5-19) 05/25/24 19:21 BUN 14 mg/dL (8-23) 05/25/24 19:21 Creatinine 1.2 mg/dL (0.5-0.9) H 05/25/24 19:21 GFR Calculation 44.8 mL/min (90-130) L 05/25/24 19:21 Glucose 199 mg/dL (65-115) H 05/25/24 19:21 Calculated Osmolality 292 mOsm/kg (285-295) 05/25/24 19:21 Calcium 9.1 mg/dL (8.5-10.5) 05/25/24 19:21 Troponin T Baseline 35 ng/L (0-10) H 05/25/24 19:21 Coronavirus (PCR) Negative (Negative) 05/25/24 20:36 Influenza A (PCR) Negative (Negative) 05/25/24 20:36 Influenza Type B (PCR) Negative (Negative) 05/25/24 20:36 RSV (PCR) Negative (Negative) 05/25/24 20:36 All radiology interpretation(s) finalized by discharge Discharge Plan Discharge Patient Disposition: Home Clinical Impression: Atypical chest pain Condition: Stable Prescriptions: No Action insulin aspart U-100 [Novolog FlexPen U-100 Insulin] 100 unit/mL (3 mL) insulin pen 14 unit SUBCUT TID Qty: 15 3RF Rx Instructions: May substitute for formulary aspirin [Adult Aspirin Regimen] 81 mg tablet,delayed release (DR/EC) 81 mg PO DAILY Hold Instructions: bleeding Eliquis 5 mg tablet 5 mg PO BID 30 Days Qty: 60 5RF Hold Instructions: Resume on 11/21/23. atorvastatin 40 mg tablet 40 mg PO DAILY Qty: 90 2RF metoprolol tartrate 100 mg tablet 150 mg PO Q12H 90 Days Qty: 270 1RF sucralfate [Carafate] 1 gram tablet 1 g PO BID Qty: 60 2RF nitroglycerin 0.4 mg tablet, sublingual 0.4 mg SUBLINGUAL Q5M PRN (Reason: Chest Pain) Qty: 25 2RF pregabalin 75 mg capsule 75 mg PO BID 30 Days Qty: 60 3RF furosemide 40 mg tablet 80 mg PO BID Qty: 120 5RF Rx Instructions: 2 in AM, 2 @ noon albuterol sulfate 90 mcg/actuation HFA aerosol inhaler 2 puff INHALATION Q6H PRN (Reason: shortness of breath or wheezing) Qty: 8.5 5RF albuterol sulfate 2.5 mg /3 mL (0.083 %) solution for nebulization 2.5 mg inhalation Q6H Qty: 150 1RF famotidine 20 mg tablet 20 mg PO BID 90 Days Qty: 180 1RF potassium chloride 20 mEq tablet,ER particles/crystals 20 meq PO BID PRN (Reason: with lasix only) 90 Days Qty: 180 1RF [place] [facility] [place] .MEDSUPPLY Qty: 1 0RF Rx Instructions: As directed budesonide 1 mg/2 mL suspension for nebulization 0.5 mg inhalation BID Qty: 60 1RF Jardiance 10 mg tablet 10 mg PO DAILY 30 Days Qty: 30 5RF risperidone 0.25 mg tablet 0.25 mg PO .qhs Qty: 30 1RF Hold Instructions: see pcp buspirone 15 mg tablet 15 mg PO TID PRN (Reason: anxiety) Qty: 90 1RF (DME) Dexcom G[facility] See Rx Instructions .Route Qty: 1 0RF Rx Instructions: As directed (DME) Dexcom G7 Sensor Device See Rx Instructions .ROUTE .COMPLEX Qty: 1 3RF Dose Instruction: USE TO MONITOR BLOOD SUGAR DIRECTED BY DOCTOR CHANGE SENSOR EVERY 10 DAYS Rx Instructions: USE TO MONITOR BLOOD SUGAR DIRECTED BY DOCTOR CHANGE SENSOR EVERY 10 DAYS (DME) Depend Underwear For Women [place] [facility] [place] Rx Instructions .Route Qty: 360 11RF Rx Instructions: As directed, 12 daily T4528 (DME) pen needle, diabetic [BD Ultra-Fine Short Pen Needle] 31 gauge x 5/16 needle See Rx Instructions .ROUTE .COMPLEX Qty: 100 2RF Dose Instruction: TO USE WITH INSULIN 4 TIMES DAILY Rx Instructions: TO USE WITH INSULIN 4 TIMES DAILY cholecalciferol (vitamin D3) 1,250 mcg (50,000 unit) capsule See Rx Instructions .ROUTE .COMPLEX Qty: 4 0RF Dose Instruction: TAKE ONE CAPSULE BY MOUTH WEEKLY ON MONDAYS NEED VITAMIN D LEVEL BEFORE NEXT DR VISIT Rx Instructions: TAKE ONE CAPSULE BY MOUTH WEEKLY ON MONDAYS NEED VITAMIN D LEVEL BEFORE NEXT DR VISIT pantoprazole [Protonix] 40 mg tablet,delayed release (DR/EC) 40 mg PO BID 56 Days Qty: 112 3RF pramipexole 0.5 mg tablet 0.5 mg PO BEDTIME Rx Instructions: TAKE ONE TABLET BY MOUTH AT BEDTIME FOR 90 DAYS ferrous gluconate 324 mg (37.5 mg iron) tablet 324 mg PO BID Qty: 60 3RF insulin glargine [Lantus Solostar U-100 Insulin] 100 unit/mL (3 mL) insulin pen 68 unit SUBCUT DAILY Rx Instructions: 68 UNIT (0.68 ML) SUBCUTANEOUSLY DAILY nystatin 100,000 unit/gram cream 1 applic TOPICAL TID mupirocin 2 % ointment 1 applic topical DAILY Qty: 50 0RF pantoprazole [Protonix] 40 mg tablet,delayed release (DR/EC) 40 mg PO DAILY 30 Days Qty: 30 0RF sucralfate [Carafate] 1 gram tablet 1 g PO TID 30 Days Qty: 90 0RF Rx Instructions: take 1 hour before or 30 minutes after any other medications Discharge Orders: Discharge ED (Routine); Ordered 05/25/24 Ordered By: Caio Kirby Referrals: Kristine Rodriguez MD [Primary Care Provider] - Discharge Diet: Usual diet Discharge Activity: Resume usual activity Patient Instructions: Chest Pain - Noncardiac, Opioid Safety, Pain Management Activity Restrictions/Additional Instructions: Please follow-up with your primary care provider next week for continued evaluation. Return to the ER as needed. Coding Level of Care Code ED Emergency Technician for Urvashi Shaw
[2024-05-25 20:41] VITALS: BP 151/75; PULSE 62; O2SAT 98
[2024-05-25 21:19] LABS: Covid PCR NEGATIVE (Negative); Influenza A NEGATIVE (Negative); Influenza B NEGATIVE (Negative); Respiratory Syncytial Virus Ce NEGATIVE (Negative)
== END 2024-05-25 22:55 | disposition home or self-care (01) ==
PROVIDERS: Emergency Provider Student in an Organized Health Care Education/Training Program; PCP Family Medicine
DX: R07.89 Other chest pain (principal); Z79.4 Long term (current) use of insulin; Z11.52 Encounter for screening for COVID-19; E11.9 Type 2 diabetes mellitus without complications; I10 Essential (primary) hypertension; J44.9 Chronic obstructive pulmonary disease, unspecified
CPT/HCPCS: 36415; 71045; 80048; 84484; 85025; 87637; 93005; 99285

== ENCOUNTER 2024-05-29 15:34 | Emergency (ER) | payer MEDICARE, MEDICAID, SELFPAY ==
[2024-03-15 13:57] VITALS: BP 121/48; BMI 48.4
[2024-05-29] VITALS (9 sets, daily range): BP systolic 135–166; BP diastolic 49–66; PULSE 58–88; RESP 17–25; TEMP 36.7; O2SAT 94–98; BMI 48.5
--- NOTE | 2024-05-29 15:36 | XR_ITS ---
WS: [id number] Exam: XR chest 1V portable [id number] Date/Time of Exam: 05/29/2024 3:40 PM Reason For Exam: cp Comparison 05/25/2024. The lungs are fully expanded and clear. Heart size normal for technique. The mediastinum is normal in contour. Small LEFT basal pleural effusion showing no significant change. Unremarkable bony structur es. XR/XR chest 1V portable [id number] IMPRESSION: 1. Small LEFT basal pleural effusion unchanged. No acute process.
--- NOTE | 2024-05-29 15:38 | ECG_ITS ---
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 Measurements Intervals [place] Rate: 66 P: -89 VA: 114 QRS: 25 QRSD: 92 T: 11 QT: 408 QTc: 429 Interpretive Statements JUNCTIONAL RHYTHM LOW QRS VOLTAGE IN PRECORDIAL LEADS [QRS DEFLECTION < 1.0 mV IN CHEST LEADS] PATTERN CONSISTENT WITH PULMONARY DISEASE MINIMAL ST DEPRESSION [0.025+ mV ST DEPRESSION] Compared to ECG 05/25/2024 17:58:21 Junctional rhythm now present ST (T wave) deviation now present Atrial fibrillation no longer present Ventricular premature complex(es) no longer present Aberrant conduction of supraventricular beat(s) no longer present Myocardial infarct finding no longer present Electronically Signed On 05-31-2024 11:21:04 PIPE FITTER SUPERVISOR by Kevon Ge M.D. [email or web address]
--- NOTE | 2024-05-29 15:47 | ED_ITS ---
HPI - Chest Pain 2 General: Chief Complaint: Chest Pain Stated Complaint: SOB, CP, Anxiety Time Seen by Provider: 05/29/24 15:37 Source: patient and EMS Mode of arrival: EMS Limitations: no limitations History of Present Illness: 69-year-old female who states that today she started feeling anxious start having some chest pain and dyspnea began roughly an hour and a half ago. She has been seen here for the same states her symptoms have improved patient is on 2 L of oxygen at baseline is currently 96% on that 2 L she denies any vomiting or diarrhea. Associated symptoms: Reports dyspnea; Deny abdominal pain, fever(s), nausea or vomiting Related Data Home Medications Medication Instructions Recorded Confirmed aspirin 81 mg tablet,delayed 81 mg PO DAILY 11/18/23 05/29/24 release (Adult Aspirin Regimen) pramipexole 0.5 mg tablet 0.5 mg PO BEDTIME 03/07/24 05/29/24 insulin glargine 100 unit/mL (3 35 unit SUBCUT DAILY 04/12/24 05/29/24 mL) subcutaneous pen (Lantus Solostar U-100 Insulin) Previous Rx's Medication Instructions Recorded nitroglycerin 0.4 mg sublingual 0.4 mg sublingual Q5M PRN Chest 04/15/22 tablet Pain #25 tabs apixaban 5 mg tablet (Eliquis) 5 mg PO BID 30 days #60 tabs 12/06/23 atorvastatin 40 mg tablet 40 mg PO DAILY #90 tabs 12/06/23 metoprolol tartrate 100 mg tablet 150 mg (1.5 x 100 mg) PO Q12H 90 12/06/23 days #270 tabs insulin aspart U-100 100 unit/mL 14 unit (0.14 mL) SUBCUT TID #15 mL 12/28/23 (3 mL) subcutaneous pen (Novolog FlexPen U-100 Insulin aspart) budesonide 1 mg/2 mL suspension 0.5 mg inhalation BID #60 mL 03/14/24 for nebulization albuterol sulfate 2.5 mg/3 mL 2.5 mg (3 mL) inhalation Q6H #150 03/27/24 (0.083 %) solution for nebulization vials albuterol sulfate 90 mcg/actuation 2 puff inhalation Q6H PRN 03/27/24 aerosol inhaler shortness of breath or wheezing #8.5 grams famotidine 20 mg tablet 20 mg PO BID 90 days #180 tabs 03/27/24 furosemide 40 mg tablet 80 mg (2 x 40 mg) PO BID weight 03/27/24 gain or shortness breath #120 tabs potassium chloride 20 mEq 20 meq PO BID PRN with lasix only 03/27/24 tablet,extended release(part/cryst) 90 days #180 tabs pregabalin 75 mg capsule 75 mg PO BID 30 days #60 caps 03/27/24 ferrous gluconate 324 mg (37.5 mg 324 mg PO BID #60 tabs 03/31/24 iron) tablet empagliflozin 10 mg tablet 10 mg PO DAILY 30 days #30 tabs 04/05/24 (Jardiance) buspirone 15 mg tablet 15 mg PO TID PRN anxiety #90 tabs 05/15/24 risperidone 0.25 mg tablet 0.25 mg PO .qhs #30 tabs 05/15/24 cholecalciferol (vitamin D3) 1,250 See Rx Instructions .Route 05/17/24 mcg (50,000 unit) capsule .COMPLEX #4 caps pantoprazole 40 mg tablet,delayed 40 mg PO DAILY 30 days #30 tabs 05/20/24 release (Protonix) sucralfate 1 gram tablet (Carafate) 1 g PO TID 30 days #90 tabs 05/20/24 Allergies Allergy/AdvReac Type Severity Reaction Status Date / Time propoxyphene [From Darvon] Allergy Unknown Unknown Verified 05/25/24 18:06 fluoxetine [From Prozac] AdvReac Severe ADR-Halluci Verified 05/25/24 18:06 duke Review of Systems 2 Const: Denies: fever(s), chills, body aches or change in appetite ENMT: Denies: throat pain or dental pain Card: Reports: chest pain Resp: Reports: dyspnea GI: Denies: abdominal pain, nausea, vomiting or diarrhea Musc: Denies: neck pain or back pain Skin/Breast: Denies: rash Neuro: Denies: headache(s) PFSH ED 2 PFSH: Medical History Smoking Chronic anticoagulation initiated apixaban 08/2020 for paroxysmal atrial fibrillation Hypertension, benign Paroxysmal atrial fibrillation (~08/2020) Congestive heart failure Encephalopathy acute Polypharmacy Atrial flutter Tachy-andra syndrome Acute anemia Rotator cuff dysfunction Smoking addiction Insomnia Wheelchair bound Oxygen dependent 2 L at home Small bowel obstruction History of colonic diverticulitis Paroxysmal SVT (supraventricular tachycardia) Nicotine dependence, cigarettes, with other nicotine-induced disorders DM type 2 (diabetes mellitus, type 2) Chest pain Atypical chest pain Paroxysmal A-fib NONA (obstructive sleep apnea) Uses CPAP Fibromyalgia Peripheral Vascular Disease Mixed stress and urge urinary incontinence Chronic pain syndrome Due to her weight and other comorbidities I do not think that there is much that pain management would be able to do. They can do localized injections or treatments on specific joints but she would never be a surgical candidate. Bipolar depression Overactive bladder RLS (restless legs syndrome) Constipation, chronic COPD (chronic obstructive pulmonary disease) GERD (gastroesophageal reflux disease) CAD (coronary artery disease) Diabetes mellitus type 2 in obese Hyperlipemia Chronic headache Panic disorder [episodic paroxysmal anxiety] Generalized anxiety disorder Major depressive disorder, recurrent, moderate Surgical History Hx of tubal ligation Hx of colonoscopy 10 + years H/O: hysterectomy Hx of cholecystectomy S/P appendectomy H/O thyroidectomy Family History Mother , at age 75 Hypertension Father , at age 87 Hypertension Denies family history of Lung disease Stroke Social History Smoking and tobacco/nicotine status: never used tobacco/nicotine Alcohol intake: never Substance/Drug Use: never Adopted: No Caregiver/support person: No Lives independently: Yes Household members: none Housing: Apartment Marital status: / Number of children: 8 Number of grandchildren: 14 Highest education level completed: Some College, No Degree service: No Current occupational status: disabled Pets and animals: Yes Pets & animals: dog(s) Leisure activites: art, music, reading and other Sexually active: No Do you think of yourself as: Straight/Heterosexual Current gender identity: Female Lilliam/Samaritan: [employer]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 Special lillima needs: No Agree to transfusion: Yes Female Reproductive History: Para: 8 Spontaneous abortions: No Physical Exam 2 Const: COMMON NORMALS: no acute distress, patient oriented x3 and healthy appearing HENMT: COMMON NORMALS: normocephalic and atraumatic HEAD & SCALP: n ormocephalic and atraumatic Eye: COMMON NORMALS: conjunctivae normal CONJUNCTIVA: Yes conjunctivae normal Neck/C-Spine: COMMON NORMALS: full ROM and supple Chest: COMMONS NORMALS: normal inspection of the chest Resp: COMMON NORMALS: normal respiratory effort, No retractions, No use of accessory muscles and clear to auscultation bilaterally AUSCULTATION: clear to auscultation bilaterally Cardio: COMMON NORMALS: regular rate, regular rhythm and No murmurs present (Cardio) RATE: regular rate RHYTHM: regular rhythm GI: COMMON NORMALS: Normal to inspection, nondistended, normoactive bowel sounds present, Soft to palpation, non-tender and no masses PALPATION: Yes Soft to palpation Extremity: NARRATIVE EXTREMITY EXAM: 1+edema to le Neuro: COMMON NORMALS: patient oriented x3, moves all extremities and no focal motor deficits Psych: COMMON NORMALS: mental status grossly normal, Normal thought process present and cooperative THOUGHT PROCESS: Normal thought process present Skin: COMMON NORMALS: no rashes or lesions noted and no wounds GENERAL SKIN EXAM: no rashes or lesions noted Course 2 Vital Signs: Vital signs: Vital Signs Temperature 98.0 F 05/29/24 15:37 Pulse Rate 71 05/29/24 18:31 Respiratory Rate 22 H 05/29/24 18:31 Blood Pressure 135/59 05/29/24 18:31 Pulse Oximetry 96 05/29/24 18:31 Oxygen Delivery Me thod Nasal Cannula 05/29/24 15:37 Oxygen Flow Rate 2 05/29/24 15:37 MDM - Chest Pain Medical Decision Making Patient presents here with chest pain is likely more anxiety she feels improved here her troponin was negative no signs of ACS she has no signs of PE or dissection she stable for discharge follow-up with PCP return if worsening. Medical Records I reviewed the patient's medical records. Lab Data I reviewed the patient's lab results. 05/29/24 16:10 05/29/24 16:10 Radiology Impressions Chest X-Ray 05/29/24 15:36 IMPRESSION: 1. Small LEFT basal pleural effusion unchanged. No acute process. Laboratory Results WBC 6.01 10^3/uL (3.29-11.43) 05/29/24 16:10 RBC 3.43 10^6/uL (3.85-5.65) L 05/29/24 16:10 Hgb 8.40 g/dL (11.27-16.99) L 05/29/24 16:10 Hct 28.9 % (36-47) L 05/29/24 16:10 MCV 84.3 fl (85-98) L 05/29/24 16:10 MCH 24.5 pg (27-33) L 05/29/24 16:10 MCHC 29.1 g/dL (30-55) L 05/29/24 16:10 RDW 22.5 % (12.1-15.1) H 05/29/24 16:10 Plt Count 179 10^3/cmm (157-399) 05/29/24 16:10 MPV 11.7 fL (7.4-10.4) H 05/29/24 16:10 Neut % (Auto) 65.8 % 05/29/24 16:10 Lymph % (Auto) 22.0 % 05/29/24 16:10 Pope % (Auto) 9.5 % 05/29/24 16:10 Eos % (Auto) 2.2 % 05/29/24 16:10 Baso % (Auto) 0.3 % 05/29/24 16:10 Neut # (Auto) 3.96 10^3/uL (1.8-7.7) 05/29/24 16:10 Lymph # (Auto) 1.3 10^3/uL (0.8-4.8) 05/29/24 16:10 Pope # (Auto) 0.6 10^3/uL (0.2-0.9) 05/29/24 16:10 Eos # (Auto) 0.1 10^3/uL (0.0-0.8) 05/29/24 16:10 Baso # (Auto) 0.0 10^3/uL (0.0-0.1) 05/29/24 16:10 Nucleated RBC % (auto) 0 % 05/29/24 16:10 Nucleated RBCs # 0.0 /100WBC 05/29/24 16:10 PT 14.20 SECONDS (12.1-14.9) 05/29/24 16:10 INR 1.03 (0.8-1.2) 05/29/24 16:10 Sodium 137 mmol/L (136-145) 05/29/24 16:10 Potassium 4.3 mmol/L (3.5-5.1) 05/29/24 16:10 Chloride 99 mmol/L (98-107) 05/29/24 16:10 Carbon Dioxide 27 mmol/L (22-29) 05/29/24 16:10 Anion Gap 15.3 (5-19) 05/29/24 16:10 BUN 14 mg/dL (8-23) 05/29/24 16:10 Creatinine 0.8 mg/dL (0.5-0.9) 05/29/24 16:10 GFR Calculation 71.5 mL/min (90-130) L 05/29/24 16:10 Glucose 208 mg/dL (65-115) H 05/29/24 16:10 Calculated Osmolality 291 mOsm/kg (285-295) 05/29/24 16:10 Calcium 8.7 mg/dL (8.5-10.5) 05/29/24 16:10 Total Bilirubin 0.5 mg/dL (0.15-1.2) 05/29/24 16:10 AST 30 U/L (0-32) 05/29/24 16:10 ALT 10 U/L (0-33) 05/29/24 16:10 Alkaline Phosphatase 243 U/L (35-105) H 05/29/24 16:10 Troponin T Baseline 38 ng/L (0-10) H 05/29/24 16:10 Troponin T 120 Minute 40.87 ng/L (0-10) H 05/29/24 18:11 Delta Troponin T 2.87 ABS# (0-10) 05/29/24 18:11 NT-Pro-B Natriuret Pep 1618 pg/mL (0-125) H 05/29/24 16:10 Total Protein 6.8 g/dL (6.6-8.7) 05/29/24 16:10 Albumin 3.5 g/dL (3.5-5.2) 05/29/24 16:10 Globulin 3.3 g/dL (1.3-4.6) 05/29/24 16:10 Lipase 44 U/L (13-60) 05/29/24 16:10 All radiology interpretation(s) finalized by discharge EKG Data EKG 1: I personally reviewed and interpreted this EKG as follows: EKG interpretation date: 05/29/24 EKG interpretation time: 15:38 Interpretation: nsr hr [address] elevation qrs 92 qtc 422 EKG 2: I personally reviewed and interpreted this EKG as follows: EKG interpretation date: 05/29/24 EKG interpretation time: 17:29 Interpretation: nsr hr [address] or t wave abnormalities qrs 93 qtc 445 Discharge Plan Discharge Patient Disposition: Home Clinical Impression: Chest pain Condition: Stable Prescriptions: No Action insulin aspart U-100 [Novolog FlexPen U-100 Insulin] 100 unit/mL (3 mL) insulin pen 14 unit SUBCUT TID Qty: 15 3RF Rx Instructions: May substitute for formulary aspirin [Adult Aspirin Regimen] 81 mg tablet,delayed release (DR/EC) 81 mg PO DAILY Hold Instructions: bleeding Eliquis 5 mg tablet 5 mg PO BID 30 Days Qty: 60 5RF Hold Instructions: Resume on 11/21/23. atorvastatin 40 mg tablet 40 mg PO DAILY Qty: 90 2RF metoprolol tartrate 100 mg tablet 150 mg PO Q12H 90 Days Qty: 270 1RF nitroglycerin 0.4 mg tablet, sublingual 0.4 mg SUBLINGUAL Q5M PRN (Reason: Chest Pain) Qty: 25 2RF pregabalin 75 mg capsule 75 mg PO BID 30 Days Qty: 60 3RF furosemide 40 mg tablet 80 mg PO BID Qty: 120 5RF Rx Instructions: 2 in AM, 2 @ noon albuterol sulfate 90 mcg/actuation HFA aerosol inhaler 2 puff INHALATION Q6H PRN (Reason: shortness of breath or wheezing) Qty: 8.5 5RF albuterol sulfate 2.5 mg /3 mL (0.083 %) solution for nebulization 2.5 mg inhalation Q6H Qty: 150 1RF famotidine 20 mg tablet 20 mg PO BID 90 Days Qty: 180 1RF potassium chloride 20 mEq tablet,ER particles/crystals 20 meq PO BID PRN (Reason: with lasix only) 90 Days Qty: 180 1RF budesonide 1 mg/2 mL suspension for nebulization 0.5 mg inhalation BID Qty: 60 1RF Jardiance 10 mg tablet 10 mg PO DAILY 30 Days Qty: 30 5RF risperidone 0.25 mg tablet 0.25 mg PO .qhs Qty: 30 1RF Hold Instructions: see pcp buspirone 15 mg tablet 15 mg PO TID PRN (Reason: anxiety) Qty: 90 1RF cholecalciferol (vitamin D3) 1,250 mcg (50,000 unit) capsule See Rx Instructions .ROUTE .COMPLEX Qty: 4 0RF Dose Instruction: TAKE ONE CAPSULE BY MOUTH WEEKLY ON MONDAYS NEED VITAMIN D LEVEL BEFORE NEXT DR VISIT Rx Instructions: TAKE ONE CAPSULE BY MOUTH WEEKLY ON MONDAYS NEED VITAMIN D LEVEL BEFORE NEXT DR VISIT pramipexole 0.5 mg tablet 0.5 mg PO BEDTIME Rx Instructions: TAKE ONE TABLET BY MOUTH AT BEDTIME FOR 90 DAYS ferrous gluconate 324 mg (37.5 mg iron) tablet 324 mg PO BID Qty: 60 3RF insulin glargine [Lantus Solostar U-100 Insulin] 100 unit/mL (3 mL) insulin pen 35 unit SUBCUT DAILY pantoprazole [Protonix] 40 mg tablet,delayed release (DR/EC) 40 mg PO DAILY 30 Days Qty: 30 0RF sucralfate [Carafate] 1 gram tablet 1 g PO TID 30 Days Qty: 90 0RF Rx Instructions: take 1 hour before or 30 minutes after any other medications Discharge Orders: Discharge ED (Routine); Ordered 05/29/24 Ordered By: Claudia Ram Referrals: Kristine Rodriguez MD [Primary Care Provider] - Discharge Diet: Advance as tolerated Discharge Activity: Resume usual activity Patient Instructions: Chest Pain (ED) Coding Level of Care Code ED Breaker Unit Assembler for Urvashi Shaw
[2024-05-29] MEDS: LORazepam 2 mg/mL INJ 1 mL 0.5 MG IVP (15:59)
[2024-05-29] MEDS: FUROsemide 10 mg/mL SDV 10mL 60 MG IVP (15:59)
[2024-05-29 16:22] LABS: Basophils % 0.3 %; Eosinophils # 0.1 10^3/uL (0.0-0.8); Eosinophils % 2.2 %; Hematocrit 28.9 % (36-47); Lymphocytes # 1.3 10^3/uL (0.8-4.8); Mean Corpuscular HGB Conc 29.1 g/dL (30-55); Mean Corpuscular Hemoglobin 24.5 pg (27-33); Mean Corpuscular Volume 84.3 fl (85-98); Mean Platelet Volume 11.7 fL (7.4-10.4); Monocytes # 0.6 10^3/uL (0.2-0.9); Monocytes % 9.5 %; Neutrophils # 3.96 10^3/uL (1.8-7.7); Neutrophils % 65.8 %; Nucleated Red Blood Cells % 0 %; Platelet Count 179 10^3/cmm (157-399); Red Blood Count 3.43 10^6/uL (3.85-5.65); Red Cell Distribution Width 22.5 % (12.1-15.1); White Blood Count 6.01 10^3/uL (3.29-11.43)
[2024-05-29 16:45] LABS: Troponin(5th) Baseline 38 ng/L (0-10)
[2024-05-29 16:50] LABS: INR 1.03 (0.8-1.2)
[2024-05-29 17:07] LABS: Alanine Aminotransferase 10 U/L (0-33); Albumin Level 3.5 g/dL (3.5-5.2); Alkaline Phosphatase 243 U/L (35-105); Anion Gap 15.3 (5-19); Aspartate Amino Transferase 30 U/L (0-32); Blood Urea Nitrogen 14 mg/dL (8-23); Calcium 8.7 mg/dL (8.5-10.5); Carbon Dioxide 27 mmol/L (22-29); Chloride 99 mmol/L (98-107); Creatinine Clr Calc Pharmacy 90.6693; Globulin 3.3 g/dL (1.3-4.6); Glomerular Filtration Rate 71.5 mL/min (90-130); Glucose 208 mg/dL (65-115); Lipase 44 U/L (13-60); NT Pro B Type Natriuretic Pept 1618 pg/mL (0-125); Osmolality Calculated 291 mOsm/kg (285-295); Potassium 4.3 mmol/L (3.5-5.1); Sodium 137 mmol/L (136-145); Total Bilirubin 0.5 mg/dL (0.15-1.2); Total Protein 6.8 g/dL (6.6-8.7)
--- NOTE | 2024-05-29 17:29 | ECG_ITS ---
[facility] Test Date: 2024-05-29 Pat Name: Lin Henao Department: Room: Gender: Female Registered Pharmacy Technician: : 1955 Requested By: Claudia Ram Order Number: [id number] Tylor MD: Kevon Ge M.D. Measurements Intervals Cement Rate: 61 P: 268 OR: 113 QRS: 34 QRSD: 93 T: 5 QT: 442 QTc: 447 Interpretive Statements ECTOPIC ATRIAL RHYTHM WITH OCCASIONAL SUPRAVENTRICULAR PREMATURE COMPLEXES Compared to ECG 05/29/2024 15:38:30 ST (T wave) deviation no longer present Electronically Signed On 06-02-2024 13:46:11 [employer]OUNT[employer] by Kevon Ge M.D. [id number]
[2024-05-29 18:37] LABS: Troponin 5 2HR 40.87 ng/L (0-10); Troponin 5 2HR Delta 2.87 ABS# (0-10)
== END 2024-05-29 20:18 | disposition home or self-care (01) ==
PROVIDERS: Emergency Provider Emergency Medicine; PCP Family Medicine
DX: R07.9 Chest pain, unspecified (principal); Z79.4 Long term (current) use of insulin; E11.9 Type 2 diabetes mellitus without complications; I25.10 Atherosclerotic heart disease of native coronary artery without angina pectoris; E78.5 Hyperlipidemia, unspecified; I11.0 Hypertensive heart disease with heart failure; I50.9 Heart failure, unspecified
CPT/HCPCS: 36415; 71045; 80053; 83690; 83880; 84484; 85025; 85610; 93005; 96374; 96375; 99285; J1940; J2060

== ENCOUNTER → 2024-06-07 11:56 | Outpatient (BNVA) | payer MEDICARE, MEDICAID, SELFPAY ==
[2024-03-15 13:57] VITALS: BP 121/48; BMI 48.4
== END ==
PROVIDERS: PCP Family Medicine; Visit Provider Family Medicine
DX: J06.9 Acute upper respiratory infection, unspecified (principal); J98.8 Other specified respiratory disorders; B97.89 Other viral agents as the cause of diseases classified elsewhere
CPT/HCPCS: 87400; 87426

== ENCOUNTER → 2024-06-26 11:08 | Outpatient (BNVA) | payer MEDICARE, MEDICAID, SELFPAY ==
[2024-03-15 13:57] VITALS: BP 121/48; BMI 48.4
== END ==
PROVIDERS: PCP Family Medicine; Visit Provider Family Medicine
DX: I50.9 Heart failure, unspecified (principal); E11.65 Type 2 diabetes mellitus with hyperglycemia; E11.9 Type 2 diabetes mellitus without complications; J44.9 Chronic obstructive pulmonary disease, unspecified
CPT/HCPCS: 80053; 83036; 83880; 85025